=== PATIENT | female | born 1975 | race Caucasian/White ===

== ENCOUNTER 2024-04-25 18:55 | Inpatient (IN) | payer OTHER, SELFPAY ==
[2024-04-25] VITALS (10 sets, daily range): BP systolic 117–153; BP diastolic 75–90; PULSE 62–78; RESP 13–19; TEMP 36.6; O2SAT 90–100
--- NOTE | ~2024-04-25 | CT_ITS ---
EXAMINATION: CT cervical spine wo con DATE: 04/25/2024 19:51 INDICATION: hematoma to scalp, c/f trauma TECHNIQUE: Computed tomography (CT) of the cervical spine was performed without intravenous contrast. Automated exposure control and iterative reconstruction technique were employed. The dose-length pro duct was 119.54 mGy-cm. COMPARISON: None. FINDINGS: Vertebral Body Alignment: Intact. Craniocervical and atlantoaxial alignment: Mild degenerative change. Alignment intact. Osseous structures/fracture: No evidence of a lytic or blastic process in the visualized spine. No e vidence of acute fracture. Cervical soft tissues: The paraspinal soft tissues planes are maintained. Degenerative changes: Degenerative changes, without severe neural foraminal or central canal narrowin g. IMPRESSION: No acute fracture or traumatic malalignment in the cervical spine. Reviewed, dictated and finalized at location K. NITIES TEACHER
--- NOTE | ~2024-04-25 | XR_ITS ---
EXAMINATION: XR chest PICC line DATE: 04/30/2024 08:23 INDICATION: PICC line placement TECHNIQUE: frontal view of the chest was obtained. COMPARISON: Chest radiograph dated 04/30/2024 FINDINGS: Endotracheal tube tip 2 mm above the jose and would recommend withdrawal by 2 cm. Nasogastric tube with tip in proximal side port in the body of the stomach. Right upper extremity peripherally inserte d central venous catheter (PICC) tip at the mid superior vena cava. Airspace opacities in the left lower lung zone which could represent atelectasis or pneumonia. No pul monary edema, pleural effusion or pneumothorax. Heart size is normal. IMPRESSION: 1. Endotracheal tube tip 2 cm millimeter above the jose. Recommend withdrawal by 2 cm. 2. Opacities in the left lower lung zone which could represent atelectasis or pneumonia. Reviewed, dictated and finalized at location A. ENT RELATIONS LIAISON IMPRESSION: 1. Endotracheal tube tip 2 cm millimeter above the jose. Recommend withdrawal by 2 cm. 2. Opacities in the left lower lung zone which could represent atelectasis or p neumonia.
--- NOTE | ~2024-04-25 | CT_ITS ---
EXAMINATION: CTA chest PE abdomen pel DATE: 04/25/2024 21:30 INDICATION: hypoxia worsening b/l pleural effusions unclear TECHNIQUE: Computed tomography angiography (CTA) of the chest was performed with 100 mL Omnipaque-350 intravenous contrast timed to evaluate the pulmonary arteries, followed by portal venous phase imagi ng of the abdomen and pelvis. Coronal maximum intensity projection 3D-reconstructions were created by the technologist. The dose-length product (DLP) was 724.03 mGy-cm. Automated exposure control and it erative reconstruction technique were employed. COMPARISON: X-ray chest and some abdomen, same date. FINDINGS: CHEST: Lung parenchyma and airways: Mild septal thickening. Bilateral dependent atelectasis. Right middle lo be scar. Pleura: Unremarkable. Thoracic inlet, axillae and chest wall: No thyroid or soft tissue mass. Thoracic aorta: No significant dilation. No dissection. Mediastinum: Normal. Dilated central pulmonary arteries as can be seen with pulmonary arterial hypert ension. Heart and pericardium: Normal. Coronary artery calcifications: Mild. Thoracic bones: No acute osseous finding. Pulmonary arteries: Study quality: Motion and beam hardening artifact limit evaluation of segmental a nd subsegmental pulmonary arteries. No central pulmonary emboli detected. ABDOMEN/PELVIS: Liver: Small nodular liver. Biliary/Gallbladder: Cholelithiasis. No bile duct dilation. Pancreas: Multiple coarse pancreatic calcifications. Marked pancreatic duct dilation. Spleen: Normal. Adrenals:No mass. Kidneys: No suspicious mass, obstructing stone, or hydronephrosis. GI tract: No small or large bowel dilation. Normal appendix. Mesentery/Peritoneum: No ascites, mass, or free air. Recanalization of the umbilical vein. Retroperitoneum: No mass. Atherosclerotic abdominal aortic and/or arterial calcifications. Pelvis: Normal uterus and bilateral ovaries. The urinary bladder is decompressed by Mirza catheter. Soft Tissues: Soft tissues and body wall unremarkable. Abdominopelvic bones: No acute osseous finding. IMPRESSION: Limited evaluation of the segmental and subsegmental pulmonary arteries. No central pulmonary embolus detected. Mild interstitial pulmonary edema. No pleural effusion is detected. Cirrhosis with portal hypertension. Chronic pancreatitis with marked pancreatic duct dilation. Correlate with pancreatic labs. Reviewed, dictated and finalized at location K. O INTERFERENCE EXPERT IMPRESSION: Limited evaluation of the segmental and subsegmental pulmonary arteries. No shirin tral pulmonary embolus detected. Mild interstitial pulmonary edema. No pleural effusion is detected. Cirrhosis with portal hypertension. Chronic pancreatitis with marked pancreatic duct dilation. Correlate with pancr eatic labs.
--- NOTE | ~2024-04-25 | XR_ITS ---
EXAMINATION: XR chest 1V portable DATE: 04/30/2024 06:00 INDICATION: Intubation TECHNIQUE: frontal view of the chest was obtained. COMPARISON: Chest radiograph dated 04/29/2024 FINDINGS: Endotracheal tube tip appears to extend a couple millimeter beyond the jose at the entrance to the right mainstem bronchus. Nasogastric tube tip in proximal side port in the body the stomach. Airspace opacities in bilateral lower lung zones, left greater than right which could represent atele ctasis or pneumonia. No pleural effusion or pneumothorax. Heart size is normal. IMPRESSION: 1. Endotracheal tube tip just within the right mainstem bronchus. This has been withdrawn on the thre e-hour subsequent radiograph. The tip of the lower lung zones, left greater than right which could re present atelectasis or pneumonia. Reviewed, dictated and finalized at location A. AVER TENDER IMPRESSION: 1. Endotracheal tube tip just within the right mainstem bronchus. This has been withdrawn on the three-hour subsequent radiograph. The tip of the lower lung z ones, left greater than right which could represent atelectasis or pneumonia.
--- NOTE | ~2024-04-25 | XR_ITS ---
EXAMINATION: XR abdomen gastric tube insert DATE: 04/28/2024 20:12 INDICATION: Nasogastric tube placement. TECHNIQUE: A supine view of the abdomen was obtained. COMPARISON: CT chest, abdomen, and pelvis 04/25/2024 FINDINGS: The lower abdomen is excluded. There are no dilated loops of bowel. The nasogastric tube ti p is in the distal stomach. There are calcifications in the pancreas, consistent with chronic pancrea titis. There are airspace opacities in right lower lung zone, likely atelectasis. There is an 11 mm n odule in left lung upper lobe on the recent chest CT. IMPRESSION: 1. 11 mm nodule in left lung upper lobe suspicious for primary bronchogenic carcinoma. Noncontrast lo w-dose chest CT is recommended in 3 months. 2. Nasogastric tube tip in the distal stomach. Reviewed, dictated and finalized at location A. OLOGY MANAGER IMPRESSION: 1. 11 mm nodule in left lung upper lobe suspicious for primary bronchogenic car cinoma. Noncontrast low-dose chest CT is recommended in 3 months. 2. Nasogastric tube tip in the distal stomach.
--- NOTE | ~2024-04-25 | XR_ITS ---
EXAMINATION: XR chest 1V portable DATE: 04/28/2024 10:20 INDICATION: Worsening shortness of breath TECHNIQUE: frontal view of the chest was obtained. COMPARISON: Chest radiograph and CT dated 04/25/2024 FINDINGS: Lung volumes are decreased. Mild reticular opacities at the bilateral lower lung zones which could re present mild pulmonary edema, atelectasis, pneumonia or some combination thereof. Heart size is rubio l. IMPRESSION: 1. Decreased lung volumes with mild bibasilar opacities most likely atelectasis with differential inc luding the mild pulmonary edema or pneumonia. Reviewed, dictated and finalized at location A. T DRIVER IMPRESSION: 1. Decreased lung volumes with mild bibasilar opacities most likely atelectasis with differential including the mild pulmonary edema or pneumonia.
--- NOTE | ~2024-04-25 | XR_ITS ---
EXAMINATION: XR chest ET placement DATE: 05/02/2024 18:30 INDICATION: Intubation. TECHNIQUE: A single frontal view of the chest was obtained. COMPARISON: Chest view at 5:30 AM, chest CT 04/25/2024 FINDINGS: There is a small right pleural effusion. There are airspace opacities in the perihilar epi ons and lower lung zones. There is a diffuse interstitial pattern in the lungs. There is an 11 mm nod ule in left upper lobe. The heart size is normal. The endotracheal tube tip is 1.3 cm above the jose l a. The nasogastric tube tip is beyond the inferior margin of the radiograph, but at least to the stom ach. A right upper extremity peripherally inserted central venous catheter (PICC) is seen with tip at the superior cavoatrial junction. IMPRESSION: 1. Diffuse lung disease, consistent with pulmonary edema and lower lung atelectasis versus pneumonia. 2. 11 mm left upper lobe pulmonary nodule suspicious for primary bronchogenic carcinoma. Noncontrast chest CT is recommended in 3 months. 3. Small pleural effusions. Reviewed, dictated and finalized at location A. T PLACER IMPRESSION: 1. Diffuse lung disease, consistent with pulmonary edema and lower lung atelect asis versus pneumonia. 2. 11 mm left upper lobe pulmonary nodule suspicious for primary bronchogenic c arcinoma. Noncontrast chest CT is recommended in 3 months. 3. Small pleural effusions.
--- NOTE | ~2024-04-25 | XR_ITS ---
Portable chest x-ray Comparison: 04/30/2024 Clinical History: Respiratory failure Findings: Endotracheal tube, NG tube, and right-sided PICC line are in place. Small right pleural ef fusion present. There is moderate bibasilar pulmonary edema pattern and bibasilar atelectasis. Cardi omediastinal silhouette is stable. Bones and soft tissues are unremarkable. Impression: Support tubes, as above. Probable moderate bibasilar pulmonary edema and atelectatic change. Correlate clinically for pneumoni a. Small right pleural effusion. Reviewed, dictated and finalized at location M. MAINTENANCE TECHNICIAN Impression: Support tubes, as above. Probable moderate bibasilar pulmonary edema and atelectatic change. Correlate c linically for pneumonia. Small right pleural effusion.
--- NOTE | ~2024-04-25 | XR_ITS ---
EXAMINATION: XR abdomen gastric tube insert DATE: 04/29/2024 16:21 INDICATION: Orogastric tube placement. TECHNIQUE: A supine view of the abdomen was obtained. COMPARISON: CT abdomen and pelvis 04/25/2024 FINDINGS: The lower abdomen is excluded. There are no dilated loops of bowel. The nasogastric tube ti p is in the distal stomach. The endotracheal tube tip is 10 mm above the jose. There are calcificat ions of the pancreas, consistent with chronic pancreatitis. There are gallstones in the gallbladder. IMPRESSION: 1. Nasogastric tube tip in the distal stomach. Reviewed, dictated and finalized at location A. INE STAPLER
--- NOTE | ~2024-04-25 | CT_ITS ---
EXAMINATION: CT brain wo con DATE: 04/25/2024 19:51 INDICATION: ams, lethargic . TECHNIQUE: Computed tomography (CT) of the head was performed without intravenous contrast. The mA wa s adjusted according to patient size. Iterative reconstruction technique was employed. The dose-lengt h product was 605.33 mGy-cm. COMPARISON: None. FINDINGS: No acute intracranial hemorrhage or extra-axial fluid collection. No hydrocephalus, mass, or herniation. No acute ischemic infarct. Unremarkable dural venous sinus attenuation. No acute osseous abnormality. Posterior scalp contusion Nodular mucosal thickening in the inferior maxillary sinuses, the remaining aerated spaces are clear. Mild atrophy and chronic white matter change. Atherosclerotic intracranial calcification. Bilateral l ens replacements. IMPRESSION: No acute intracranial process. Reviewed, dictated and finalized at location K. ASS OPERATOR
--- NOTE | ~2024-04-25 | US_ITS ---
EXAMINATION: US abdomen limited DATE: 04/25/2024 21:19 INDICATION: transamiinitis; AMS TECHNIQUE: Multiple grayscale and Doppler ultrasound images of limited portions of the abdomen were o btained. COMPARISON: None available. FINDINGS: Marked pancreatic duct dilation. Small nodular liver. Recanalized umbilical vein No surface nodularity. Normal hepatopetal flow in the main portal vein. Echogenic intraluminal foci. No wall th ickening or pericholecystic fluid The common bile duct measures 4 mm. Robles's sign cannot be assesse d. IMPRESSION: Cirrhosis with portal hypertension. Cholelithiasis. Pancreatic duct dilation. Reviewed, dictated and finalized at location K. ENGINEER
--- NOTE | ~2024-04-25 | CT_ITS ---
EXAMINATION: CT brain wo con DATE: 04/28/2024 10:22 INDICATION: Lethargy and altered mental status TECHNIQUE: Computed tomography (CT) of the head was performed without intravenous contrast. Sagittal and coronal reconstructions were performed. The mA was adjusted according to patient size. Iterative reconstruction technique was employed. The dose-length product was 605.33 mGy-cm. COMPARISON: head CT dated 04/25/2024 FINDINGS: No acute intracranial hemorrhage, acute infarction or abnormal extra axial fluid collection. There is mild scattered white matter hypoattenuation consistent with chronic small vessel ischemic disease. S ymmetric prominence of the sulci consistent with mild diffuse cerebral volume loss. Ventricles are no rmal and symmetric. No mass/mass effect. Mucosal thickening the paranasal sinuses. The orbits, parana rosie sinuses and mastoid air cells are normal. Extensive dental disease with periportal erosions along the mandible. Unchanged relatively high attenuation posterior midline scalp nodule, possibly trichil emmal cyst. IMPRESSION: 1. Stable appearance of mild age-related changes including mild diffuse volume loss and mild scattere d white matter hypoattenuation consistent with chronic small vessel ischemic disease. No acute intrac ranial process. Reviewed, dictated and finalized at location A. ITORY ACCOUNT REPRESENTATIVE IMPRESSION: 1. Stable appearance of mild age-related changes including mild diffuse volume loss and mild scattered white matter hypoattenuation consistent with chronic sm all vessel ischemic disease. No acute intracranial process.
--- NOTE | ~2024-04-25 | XR_ITS ---
EXAMINATION: XR chest 1V Exam Date/Time: 04/25/2024 19:45 THREAD SEPARATOR HISTORY: ams, hypoxic Comparison: None. RESULT: Lines, tubes, and devices: None. Lungs and pleura: Mild diffuse reticular opacities. Streaky bibasilar airspace disease. Minimal bila teral costophrenic angle blunting. Cardiomediastinal silhouette: Stable. Other: No acute osseous or upper abdominal finding. IMPRESSION: Mild interstitial edema. Streaky subsegmental bibasilar atelectasis/consolidation. Possible trace juan ateral effusions. Reviewed, dictated and finalized at location K. AD SEPARATOR IMPRESSION: Mild interstitial edema. Streaky subsegmental bibasilar atelectasis/consolidati on. Possible trace bilateral effusions.
--- NOTE | ~2024-04-25 | XR_ITS ---
XR chest ET placement 04/29/2024 16:21 Indication: Respiratory failure. Procedure: AP portable chest Comparison: 04/28/2024 Findings: Endotracheal tube tip 1.5 cm above the jose. NG tube in the stomach. Bibasilar airspace d isease, compatible with pneumonia. Small effusions. No pneumothorax. Impression: 1: Bibasilar airspace disease, compatible with pneumonia. Reviewed, dictated and finalized at location B. IBILITY SUPERVISOR Impression: 1: Bibasilar airspace disease, compatible with pneumonia.
--- NOTE | ~2024-04-25 | XR_ITS ---
Portable chest x-ray Comparison: 05/01/2024 Clinical History: Respiratory failure Findings: Endotracheal tube, NG tube, and right-sided central venous line remain in place. Small rig ht pleural effusion present with patchy bibasilar airspace disease. Cardiomediastinal silhouette is stable. Bones and soft tissues are unremarkable. Impression: Patchy bibasilar pulmonary edema/atelectasis versus pneumonia. Correlate clinically. Small right pleural effusion. Support tubes, as above. Reviewed, dictated and finalized at location M. STATION SUPERVISOR Impression: Patchy bibasilar pulmonary edema/atelectasis versus pneumonia. Correlate clinic ally. Small right pleural effusion. Support tubes, as above.
--- NOTE | 2024-04-25 19:00 | ED_ITS ---
HPI - SOB/Dyspnea General Chief Complaint: Shortness of Breath/Dyspnea Stated Complaint: LOW O2 SATS, LETHARGIC Time Seen by Provider: 04/25/24 18:59 Source: EMS and RN notes reviewed Mode of arrival: EMS Limitations: altered mental status History of Present Illness HPI Narrative: Patient presents from [facility] with report of altered mental status/lethargy. She was noted to have hypoxia with an oxygen saturation of 88% by EMS were applied nasal cannula. Point of care blood glucose was 104 mg/dL per EMS. Limited history as [facility] was unable to access our patient records because their system was down. It was reported that she was recently hospitalized at [facility] for psychiatric condition. Patient was noted to have a hematoma at the back of her scalp today but unclear circumstances. She does have a wrist band on her wrist that lists a hospitalization 04/11/2024 in the ICU. Related Data Allergies Allergy/AdvReac Type Severity Reaction Status Date / Time No Known Allergies Allergy Verified 04/25/24 19:50 FOR[facility]LY [facility], [facility] Past Medical History Medical History Anxiety Chronic depression Chronic liver disease Chronic pancreatitis Diabetes mellitus Esophageal varices Panic attacks Suicidal ideation Surgical History Surgical History History of bilateral ligation of fallopian tubes History of gastrointestinal surgery For esophageal varices Family History Family History (Updated 04/26/24 @ 02:21 by Alicia Muniz DO) Other Unknown family medical history Social History Social History Social History: Homeless but per documentation going through a messy divorce Smoking status: Unknown if ever smoked Alcohol use details: Liquor Substance use: unknown Education: Trade/Vocational Certificate Spiritual care concerns: No Exam 2 Narrative: GENERAL: well-nourished, and in no acute distress. HEAD: Scalp hematoma. EYES: Non injected. PERRL, 3mm bilaterally, not fixed, moves eyes from side to side but no eye contact. Mildly icteric though faint and R > L. ENT: Nares clear, no rhinorrhea or epistaxis. Poor dentition. Patient has a thick chalky orange substance in her mouth. NECK: Supple. CHEST: No respiratory distress. Normal breasts. No ecchymosis. Lungs clear. Airway otherwise patent and she is protecting at this time. HEART: Regular rate and rhythm. ABDOMEN: Soft, nondistended. Nontender to palpation without rigidity. Not peritoneal. EXTREMITIES: No lower extremity edema. SKIN: Warm, dry. Patient has various areas of ecchymosis particularly on arms as well as on low abdomen. Spider angiomas on upper chest. NEURO: No focal deficits. Alert but not oriented. Responsive to pain. No ankle clonus bilaterally. Course Vital Signs Vital signs: Vital Signs Temperature 97.9 F 04/25/24 19:04 Pulse Rate 78 04/25/24 19:04 Respiratory Rate 19 04/25/24 19:04 Blood Pressure 139/86 04/25/24 19:04 Pulse Oximetry 90 04/25/24 19:04 Oxygen Delivery Room Air 04/25/24 19:04 Temperature 97.7 F 04/27/24 05:41 Pulse Rate 89 04/27/24 14:01 Respiratory Rate 20 04/27/24 14:01 Blood Pressure 126/80 04/27/24 05:41 Pulse Oximetry 92 04/27/24 09:05 Oxygen Delivery Nasal Cannula 04/27/24 09:05 Oxygen Flow Rate 1 04/27/24 09:05 MDM - SOB/Dyspnea MDM Narrative Medical decision making narrative: Patient presents with reported altered mental status/lethargy and was noted to be hypoxic saturating 80% for EMS. She was [facility] from a local [facility] and has a hematoma to the back of her scalp, unclear circumstances. Was reported that she was recently hospitalized at [facility] for possible psychiatric issues. In the emergency department she is afebrile with vital signs that show hypoxia at 90% on room air with a good waveform. Supplemental oxygen is reapplied. C- collar applied. Patient has never presented to our hospital before and did not receive records from [facility] thus very limited knowledge of past medical history. . Patient has a wrist band on that notes that she was recently hospitalized in an ICU. The attending a.m. associated with this hospitalization was Dr. Cullen Ken, who, per a search, appears to be a hospitalist at [facility]. Point of care glucose here 126 mg/dL. Broad altered mental status workup initiated and will also simultaneously attempt to obtain records from both [facility] as well as [facility]. C-spine imaging negative for acute process, will remove collar. Nurses able to contact staff from home with who report that she had recently been hospitalized at [facility] for suicidal ideation and issues with alcohol. She arrived at [place] on Thursday and at baseline was alert oriented x2. She was noted to be hypoxic today for which nasal cannula was applied but around 6:00 p.m. when her mentation seemed to decline even further she was sent to the emergency department. Nurse notes that the patient had been a bit more awake and communicative even prior to administering Narcan; no acute change with naloxone administration. She has transaminitis and hyperbilirubinemia. She is becoming more hypoxic and although her D-dimer is not elevated to a degree to suggest pulmonary embolism, will proceed with CT imaging of the chest as well as the abdomen pelvis. Will also add a lipase on in consideration of pancreatitis that might cause a pleural effusion seen on imaging as well as indirect direct bilirubin. Also considering biliary etiology including cholangitis. Hypomagnesemia will be repleted. Ceftriaxone to be given for urinary tract infection. Ddx indirect hyperbilirubinemia Over production of bilirubin (hemolytic anemia), reduced uptake (cirrhosis or congestive hepatopathy), impaired conjugation, biliary obstruction, hereditary disease (Gilbert syndrome, Serenity-Mika syndrome, Crigler-Alexis syndrome), medication side effect (allopurinol, anabolic steroids, antibiotics, antimalarials, etc.) US with cirrhosis with portal hypertension. CT scan does not demonstrate the pleural effusions that were considered on x-ray but rather notes that it is interstitial pulmonary edema; BNP does is not concerning for acute heart failure. Lipase is not elevated packed less than normal but evidence of chronic pancreatitis on imaging. She is able to be downtitrated back to nasal cannula and maintaining her saturations. Mentation improving slightly. Continues to protect her airway. She is reassessed at approximately 12:30 a.m. Her mentation has greatly improved and she can follow commands though remains weak. Received info about recent [facility] hospitalization. Discussed with maintenance mechanic telephone hospitalist Dr Muniz who requests discussing with [facility] housekeeping aid to see if they have bed availability. electronics supervisor reportedly discusses with hospitalist who reports not being able to accept because no in house neurologist. Ammonia 62 by verbal report by engineering laboratory technician since it reads as completed in the system but not able to see result. Lactulose one time order placed. Patient will require IMU. Differential Diagnosis Differential diagnosis: Likely congestive heart failure, community acquired pneumonia, pulmonary embolism and other (Trauma occluding intracranial hemorrhage, toxic metabolic, thyroid dysfunction, infection (acute viral syndrome, flu, UTI), ACS) Medical Records Attestation: I reviewed the patient's medical records. Medical records narrative: Medical records obtained from [facility] which showed an admission from 04/07/2024 until 04/11/2024. She presented with complaints of suicidal ideations, depression, and alcoholism. It is noted that she was transferred to the ICU but without documentation as to why/what the circumstances are. Labs and imaging reports are provided from the hospitalization. Additional documentation later arrives. She was initially admitted to the psychiatric unit and on 04/11/2024 rapid response was called given a decline in the patient's mental status. Ammonia level was elevated and patient was transferred to the ICU for further care and management of her presumed acute hepatic encephalopathy. She had a history of chronic alcoholism and had a period of sobriety 5 years but had relapsed in the past 4-5 months. Patient was placed on CIWA protocol p.r.n. and for ammonia was noted to be 109. Lactulose 20 g was started every 1 hour until laxative effect occurs, then advised decrease dose to 30mL (20g) orally 3-4 times daily. Patient was receiving Lovenox for DVT PPTX. Mentation improved 04/12 and patient downgraded to telemetry status. Patient improved enough to become alert oriented x3 for 2 days in a row and was deemed stable to discharge to [facility] on 04/22/[facility]24. Lab Data Attestation: I reviewed the patient's lab results. Lab results narrative: Hemoglobin and hematocrit elevated, possibly due to hemoconcentration. Very mild thrombocytopenia. Benzodiazepines on urinalysis 04/27/24 06:09 04/27/24 06:09 Labs: Lab Results 04/25/24 04/25/24 04/25/24 Range/Units 01:15 19:07 19:16 WBC (4.5-10.0) K/mm3 RBC (4.2-5.4) M/mm3 Hgb (12.0-15.0) g/dL Hct (37.0-47.0) % MCV (80-100) fl MCH (26-34) pg MCHC (32-36) g/dl RDW (11.5-14.5) % Plt Count (150-375) k/mm3 MPV (7.4-10.4) fl Immature Gran % (Auto) (0-0.5) % Neut % (Auto) (45.5-73.1) % Lymph % (Auto) (18.3-44.2) % [place] % (Auto) (2.6-8.5) % Eos % (Auto) (0-4.4) % Baso % (Auto) (0.2-1.2) % Lymph # (Auto) (0.9-3.2) K/mm3 [place] # (Auto) (0.1-0.6) K/mm3 Eos # (Auto) (0-0.3) K/mm3 Baso # (Auto) (0.0-0.1) K/mm3 Abs Immat Gran (auto) (0.00-0.031) K/mm3 Absolute Neuts (auto) (1.3-6.7) K/mm3 Absolute Nucleated RBC (0.0-0.012) K/mm3 Nucleated RBC % (0.0-0.2) % PT (11.1-14.7) Seconds INR APTT (22.3-36.8) Seconds D-Dimer (<0.48) ug/mL Sodium (137-145) mmol/L Potassium (3.4-5.0) mmol/L Chloride (98-107) mmol/L Carbon Dioxide (22-30) mmol/L Anion Gap (4-12) mmol/L BUN (7-17) mg/dL Creatinine (0.7-1.0) mg/dL Estim Creat Clear Calc ml/min Estimated GFR (59 - ) Glucose (65-110) mg/dL POC Capillary Glucose 129 H (65-105) mg/dl Lactic Acid (0.7-2.0) mmol/L Calcium (8.4-10.2) mg/dL Magnesium (1.6-2.3) mg/dL Total Bilirubin (0.2-1.3) mg/dL Direct Bilirubin (0-0.3) mg/dL Indirect Bilirubin (0-1.1) mg/dL AST (14-36) U/L ALT (6-35) U/L Alkaline Phosphatase (38-126) U/L Ammonia 62 H (9-30) umol/L Total Creatine Kinase (30-135) U/L Troponin I (0.000-0.034) ng/mL NT-Pro-B Natriuret Pep (19.9-100) pg/mL Total Protein (6.3-8.2) g/dL Albumin (3.5-5.1) g/dL Lipase (23-300) U/L TSH (0.465-4.680) uIU/mL Urine Color (Yellow) Urine Appearance (Clear) Urine pH (5.0-9.0) Ur Specific [place] (1.001-1.035) Urine Protein (Negative) mg/dL Urine Glucose (UA) (Negative) mg/dL Urine Ketones (Negative) mg/dL Ur Blood (Man) (Negative) Urine Nitrate (Negative) Urine Bilirubin (Negative) Urine Urobilinogen (<2.0) mg/dL Leukocyte Esterase Rfl (Negative) KELSEA/UL Urine RBC (0-2) /hpf Urine WBC (0-3) /hpf Ur Squamous Epith Cells (Few) /hpf Urine Bacteria /hpf Urine Casts POC Urine HCG, Qual Negative (Negative) Salicylates (2-20) mg/dL Urine Opiates Screen (Negative) Urine Methadone Screen (Negative) Acetaminophen (10-30) ug/mL Ur Barbiturates Screen (Negative) Ur Phencyclidine Scrn (Negative) Ur Amphetamine Screen (Negative) U Benzodiazepines Scrn (Negative) Urine Cocaine Screen (Negative) U Cannabinoids Screen (Negative) Ethyl Alcohol (<10) mg/dL Influenza A (RT-PCR) (Negative) Influenza B (RT-PCR) (Negative) RSV (RT-PCR) (Negative) SARS-CoV-2 RNA (RT-PCR) (Negative) 04/25/24 04/25/24 04/25/24 Range/Units 19:27 19:27 20:11 WBC 6.4 (4.5-10.0) K/mm3 RBC 4.86 (4.2-5.4) M/mm3 Hgb 17.1 H (12.0-15.0) g/dL Hct 48.4 H (37.0-47.0) % MCV 99.6 (80-100) fl MCH 35.2 H (26-34) pg MCHC 35.3 (32-36) g/dl RDW 13.6 (11.5-14.5) % Plt Count 145 L (150-375) k/mm3 MPV 10.5 H (7.4-10.4) fl Immature Gran % (Auto) 0.5 (0-0.5) % Neut % (Auto) 58.6 (45.5-73.1) % Lymph % (Auto) 22.9 (18.3-44.2) % [place] % (Auto) 15.8 H (2.6-8.5) % Eos % (Auto) 1.1 (0-4.4) % Baso % (Auto) 1.1 (0.2-1.2) % Lymph # (Auto) 1.47 (0.9-3.2) K/mm3 [place] # (Auto) 1.0 H (0.1-0.6) K/mm3 Eos # (Auto) 0.1 (0-0.3) K/mm3 Baso # (Auto) 0.1 (0.0-0.1) K/mm3 Abs Immat Gran (auto) 0.03 (0.00-0.031) K/mm3 Absolute Neuts (auto) 3.8 (1.3-6.7) K/mm3 Absolute Nucleated RBC 0.000 (0.0-0.012) K/mm3 Nucleated RBC % 0.0 (0.0-0.2) % PT 18.6 H (11.1-14.7) Seconds INR 1.5 APTT 34.6 (22.3-36.8) Seconds D-Dimer 0.50 H (<0.48) ug/mL Sodium 141 (137-145) mmol/L Potassium 3.4 (3.4-5.0) mmol/L Chloride 110 H (98-107) mmol/L Carbon Dioxide 22 (22-30) mmol/L Anion Gap 9 (4-12) mmol/L BUN 11 (7-17) mg/dL Creatinine 0.60 L (0.7-1.0) mg/dL Estim Creat Clear Calc 85 ml/min Estimated GFR > 60 (59 - ) Glucose 119 H (65-110) mg/dL POC Capillary Glucose (65-105) mg/dl Lactic Acid 2.0 (0.7-2.0) mmol/L Calcium 8.9 (8.4-10.2) mg/dL Magnesium 1.4 L (1.6-2.3) mg/dL Total Bilirubin 3.2 H (0.2-1.3) mg/dL Direct Bilirubin 0.0 (0-0.3) mg/dL Indirect Bilirubin 1.9 H (0-1.1) mg/dL AST 65 H (14-36) U/L ALT 41 H (6-35) U/L Alkaline Phosphatase 142 H (38-126) U/L Ammonia (9-30) umol/L Total Creatine Kinase 203 H (30-135) U/L Troponin I < 0.012 (0.000-0.034) ng/mL NT-Pro-B Natriuret Pep < 20 Cancelled (19.9-100) pg/mL Total Protein 8.0 (6.3-8.2) g/dL Albumin 3.6 (3.5-5.1) g/dL Lipase < 10 L (23-300) U/L TSH 1.870 (0.465-4.680) uIU/mL Urine Color Dark yellow (Yellow) Urine Appearance Cloudy H (Clear) Urine pH 6.0 (5.0-9.0) Ur Specific [place] 1.029 (1.001-1.035) Urine Protein 1+ H (Negative) mg/dL Urine Glucose (UA) Negative (Negative) mg/dL Urine Ketones Trace H (Negative) mg/dL Ur Blood (Man) Negative (Negative) Urine Nitrate Positive H (Negative) Urine Bilirubin 2+ H (Negative) Urine Urobilinogen 4.0 H (<2.0) mg/dL Leukocyte Esterase Rfl 2+ H (Negative) KELSEA/UL Urine RBC 3-5 H (0-2) /hpf Urine WBC 51-100 H (0-3) /hpf Ur Squamous Epith Cells Occasional (Few) /hpf Urine Bacteria 4+ /hpf Urine Casts 3-5 POC Urine HCG, Qual (Negative) Salicylates < 1.0 L (2-20) mg/dL Urine Opiates Screen Negative (Negative) Urine Methadone Screen Negative (Negative) Acetaminophen < 10 L (10-30) ug/mL Ur Barbiturates Screen Negative (Negative) Ur Phencyclidine Scrn Negative (Negative) Ur Amphetamine Screen Negative (Negative) U Benzodiazepines Scrn Positive A (Negative) Urine Cocaine Screen Negative (Negative) U Cannabinoids Screen Negative (Negative) Ethyl Alcohol < 10 (<10) mg/dL Influenza A (RT-PCR) Negative (Negative) Influenza B (RT-PCR) Negative (Negative) RSV (RT-PCR) Negative (Negative) SARS-CoV-2 RNA (RT-PCR) Negative (Negative) ABG Data ABG results: 04/25/24 19:19 Puncture Site Left radial ABG pH 7.490 H ABG pCO2 28.4 L ABG pO2 60.0 L ABG PO2/FiO2 Ratio 2.14 ABG HCO3 21.2 L ABG O2 Saturation 93.2 L ABG O2 Content 22.1 H ABG Base Excess -0.5 A-a Gradient 106.1 Oxyhemoglobin 90.0 Total Hemoglobin 17.5 O2 Delivery Device Nasal cannula O2 Liters/Min 2.0 FiO2 28 Attestation: I personally reviewed and interpreted this ABG as follows: Interpretation: Respiratory alkalosis, metabolic acidosis for compensation Imaging Data Radiologist's impression: Impressions Head CT 04/25/24 19:52 IMPRESSION: No acute intracranial process. Cervical Spine CT 04/25/24 19:55 IMPRESSION: No acute fracture or traumatic malalignment in the cervical spine. Chest X-Ray 04/25/24 19:57 IMPRESSION: Mild interstitial edema. Streaky subsegmental bibasilar atelectasis/consolidation. Possible trace bilateral effusions. Abdomen Ultrasound 04/25/24 21:27 IMPRESSION: Cirrhosis with portal hypertension. Cholelithiasis. Pancreatic duct dilation. Chest/Abdomen/Pelvis CTA 04/25/24 21:32 IMPRESSION: Limited evaluation of the segmental and subsegmental pulmonary arteries. No central pulmonary embolus detected. Mild interstitial pulmonary edema. No pleural effusion is detected. Cirrhosis with portal hypertension. Chronic pancreatitis with marked pancreatic duct dilation. Correlate with pancreatic labs. ECG Data EKG #1: Attestation: I personally reviewed and interpreted this ECG as follows: ECG completion date: 04/25/24 ECG completion time: 19:05 Prior ECG tracings: not available for review (No prior for comparison) Interpretation: Normal sinus rhythm at a rate of 78 beats per minute. OR interval 163. QRS 98. QT/QTC 413/446. Good R-wave progression across the precordial leads. T-wave inversion in 3 and AVF as well as slightly in lead 2. Also T-wave inversion in V3. Discharge Plan Discharge Clinical Impression: Hypoxia, Elevated hemoglobin, Thrombocytopenia, Transaminitis, Hyperbilirubinemia, Hypomagnesemia, Cirrhosis, Portal hypertension, Cholelithiasis, Pancreatic duct dilated, Pulmonary edema, Hepatic encephalopathy UTI (urinary tract infection) Qualifiers: Urinary tract infection type: acute cystitis Hematuria presence: without hematuria Qualified Code(s): N30.00 - Acute cystitis without hematuria Patient Disposition: Still a Patient Condition: Stable Time of Disposition: 01:32
--- NOTE | 2024-04-25 19:07 | ECG_ITS ---
Test Date: 2024-04-25 19:05:45 Measurements Intervals [place] Rate: 78 P: 18 DE: 163 QRS: -3 QRSD: 98 T: -7 QT: 413 QTc: 470 Interpretive Statements SINUS RHYTHM LOW QRS VOLTAGE IN PRECORDIAL LEADS [QRS DEFLECTION < 1.0 mV IN CHEST LEADS] INFERIOR MYOCARDIAL INFARCTION , OF INDETERMINATE AGE [40+ ms Q WAVE AND/OR ST/T ABNORMALITY IN II/aVF] No previous ECG available for comparison Electronically Signed On 04-26-2024 14:51:24 RAYON CONER by Marc Fontanez M.D.
[2024-04-25 19:20] LABS: Glucose Point of Care 129 mg/dl (65-105)
[2024-04-25 19:25] LABS: Alveolar/Arterial O2 Gradient 106.1 mmHg; Base Excess ABG -0.5 mEq/l (+/-2.0); Fractional Inspired Oxygen 28 %; HCO3 ABG 21.2 mEq/l (22.0-26.0); Oxygen Content ABG 22.1 %vol (16.0-22.0); Oxygen Saturation ABG 93.2 % (95.0-100.0); PCO2 ABG 28.4 mmHg (35.0-45.0); PO2 FiO2 Ratio Arterial Blood 2.14 %; Total Hemoglobin 17.5 g/dL (12.0-18.0)
[2024-04-25 19:26] LABS: Device NASAL CANNULA; Modified Allen's Test Pass; Site Drawn LEFT RADIAL
[2024-04-25 19:39] LABS: Basophils Absolute Auto 0.1 K/mm3 (0.0-0.1); Basophils Percent Auto 1.1 % (0.2-1.2); Eosinophils Absolute Auto 0.1 K/mm3 (0-0.3); Eosinophils Percent Auto 1.1 % (0-4.4); Hematocrit 48.4 % (37.0-47.0); Hemoglobin 17.1 g/dL (12.0-15.0); Immature Granulocyte Absolute 0.03 K/mm3 (0.00-0.031); Immature Granulocyte Percent A 0.5 % (0-0.5); Lymphocytes Absolute Auto 1.47 K/mm3 (0.9-3.2); Lymphocytes Percent Auto 22.9 % (18.3-44.2); Mean Corpuscular HGB Conc 35.3 g/dl (32-36); Mean Corpuscular Hemoglobin 35.2 pg (26-34); Mean Corpuscular Volume 99.6 fl (80-100); Mean Platelet Volume 10.5 fl (7.4-10.4); Monocytes Percent Auto 15.8 % (2.6-8.5); Neutrophils Absolute Auto 3.8 K/mm3 (1.3-6.7); Neutrophils Percent Auto 58.6 % (45.5-73.1); Platelet Count Result 145 k/mm3 (150-375); Red Blood Count 4.86 M/mm3 (4.2-5.4); Red Cell Distribution Width 13.6 % (11.5-14.5); White Blood Count 6.4 K/mm3 (4.5-10.0)
[2024-04-25 19:49] LABS: Acetaminophen < 10 ug/mL (10-30); Ethanol < 10 mg/dL (<10); Salicylate < 1.0 mg/dL (2-20)
[2024-04-25] MEDS: NALOXONE HCL 0.4 MG/ML VIAL IV PUSH (19:55)
[2024-04-25 20:00] LABS: INR 1.5; Prothrombin Time 18.6 Seconds (11.1-14.7)
[2024-04-25 20:01] LABS: Partial Thromboplastin Time 34.6 Seconds (22.3-36.8)
[2024-04-25 20:04] LABS: Alanine Aminotransferase 41 U/L (6-35); Albumin Level 3.6 g/dL (3.5-5.1); Alkaline Phosphatase 142 U/L (38-126); Anion Gap 9 mmol/L (4-12); Aspartate Amino Transferase 65 U/L (14-36); Bilirubin,Total 3.2 mg/dL (0.2-1.3); Blood Urea Nitrogen 11 mg/dL (7-17); Calcium 8.9 mg/dL (8.4-10.2); Carbon Dioxide 22 mmol/L (22-30); Chloride 110 mmol/L (98-107); Creatine Kinase 203 U/L (30-135); Estimated CRCL calculation 85 ml/min; Estimated Glomerular Filt Rate > 60; Glucose 119 mg/dL (65-110); Magnesium 1.4 mg/dL (1.6-2.3); Potassium 3.4 mmol/L (3.4-5.0); Sodium 141 mmol/L (137-145)
[2024-04-25 20:16] LABS: Influenza A QL RT-PCR Negative (Negative); Influenza B QL RT-PCR Negative (Negative); RSV RNA, RT-PCR Negative (Negative); SARS-CoV-2 RNA PCR Negative (Negative)
[2024-04-25 20:17] LABS: NT Pro B Type Natriuretic Pept < 20 pg/mL (19.9-100); Troponin I < 0.012 ng/mL (0.000-0.034)
[2024-04-25 20:22] LABS: Add Urine Microscopic? YES; Appearance Urine Cloudy (Clear); Bacteria Urine 4+ /hpf; Bilirubin Urine 2+ (Negative); Blood Urine Negative (Negative); Color Urine Dark Yellow (Yellow); Glucose Urine UA Negative (Negative); Ketones Urine Trace mg/dL (Negative); Leukocyte Esterase Ur 2+ LEU/UL (Negative); Nitrate Urine Positive (Negative); Protein Urine 1+ mg/dL (Negative); Specific Grav Ur 1.029 (1.001-1.035); Squamous Epithelial Cell Urine Occasional /hpf (Few); WBC Urine 51-100 /hpf (0-3)
[2024-04-25 20:32] LABS: BEDSIDEPREGUCG Negative (Negative)
[2024-04-25 20:38] LABS: Barbiturate Screen Urine Negative (Negative); Benzodiazepines Screen Urine Positive (Negative)
[2024-04-25 21:06] LABS: Amphetamine Screen Urine Negative (Negative); Cannabinoid Screen Urine Negative (Negative); Cocaine Screen Urine Negative (Negative); Methadone Screen Urine Negative (Negative); Opiate Screen Urine Negative (Negative); Phencyclidine Screen Urine Negative (Negative)
[2024-04-25 21:26] LABS: Bilirubin Indirect 1.9 mg/dL (0-1.1)
[2024-04-25 21:41] LABS: Lipase < 10 U/L (23-300)
[2024-04-25] MEDS: MAGNESIUM SULF 1 GM/D5W 100 ML 1 GM/100 ML BAG IVPB (22:09)
[2024-04-25] MEDS: SODIUM CHLORIDE 0.9% IV 1,000 ML 999 ML IV CONT (23:23)
[2024-04-26] VITALS (14 sets, daily range): BP systolic 134–144; BP diastolic 62–92; PULSE 63–99; RESP 16–24; TEMP 36.6–36.8; O2SAT 93–100; BMI 26.0
--- NOTE | 2024-04-26 01:22 | P.HP_ITS ---
H&P: HPI History of Present Illness Date/Time: 04/26/24 01:22 Chief Complaint: Low oxygen saturations, altered mental status Narrative: 49-year-old female with past medical history of alcohol cirrhosis, chronic pa ncreatitis, and psychiatric disorder who presented to the ER from [facility] due to low oxygen saturations an altered mental status. The patient had recently been hospitalized at [facility] due to depression and suicidal ideation. During her hospitalization for depression she went and alcohol were drawn required ICU stay there. She had also developed hepatic encephalopathy at that time. The patient was then discharged to the [place] [facility] recently. Records requested is pending from [place]. Patient arrived from [place] disheveled with dried orange material to her lips and minimally responsive. Patient received Rocephin after urine was suggestive of UTI. Patient was hypoxic and was placed on 4 L nasal cannula maintain O2 sat greater than 92%. At the time my evaluation patient 4 L nasal cannula satting 100%. Patient was trying to crawl out of the into the bed and had her legs hanging off of the bed bed being in AV formation when I arrived to the ER. The patient will tell me her name but is otherwise not oriented. She is mumbling incoherently and states that she needs to go to her mother. The patient cannot provide any meaningful history. Source of information is ER physician report and EMS report. [facility] did not have documentation on the patient because there computer system was down. Her blood glucose was 104 per EMS. Review of Systems Review of Systems: ROS unobtainable: Yes unobtainable due to medical condition (Encephalopathy) PMFSH Past Medical History Medical History Anxiety Chronic depression Chronic liver disease Chronic pancreatitis Diabetes mellitus Esophageal varices Panic attacks Suicidal ideation Surgical History Surgical History History of bilateral ligation of fallopian tubes History of gastrointestinal surgery For esophageal varices Family History Family History (Updated 04/26/24 @ 02:21 by Alicia Muniz DO) Other Unknown family medical history Social History Social History Social History: Homeless but per documentation going through a messy divorce Alcohol use details: Liquor Substance use: unknown Education: Trade/Vocational Certificate Meds Home Medications and Allergies Allergies Allergy/AdvReac Type Severity Reaction Status Date / Time No Known Allergies Allergy Verified 04/25/24 19:50 Vital Signs Vital Signs - 24 hr 04/25/24 19:04 04/25/24 19:30 04/25/24 20:54 Temperature 97.9 F Pulse Rate 78 Respiratory Rate 19 Blood Pressure 139/86 Pulse Oximetry 90 95 100 Oxygen Delivery Room Air Nasal Cannula Non-Rebreather Mask Oxygen Flow Rate 2 10 04/25/24 21:00 04/25/24 21:36 04/25/24 23:30 Temperature Pulse Rate 64 Respiratory Rate 17 Blood Pressure 139/78 Pulse Oximetry 100 100 98 Oxygen Delivery Nasal Cannula Nasal Cannula Oxygen Flow Rate 4 4 04/25/24 21:33 04/25/24 21:46 04/25/24 22:01 Temperature Pulse Rate 68 73 65 Respiratory Rate 16 15 15 Blood Pressure 144/87 H 153/90 H 117/75 Pulse Oximetry 100 100 100 Oxygen Delivery Oxygen Flow Rate 04/25/24 23:31 04/26/24 00:00 Temperature Pulse Rate 62 63 Respiratory Rate 13 16 Blood Pressure 119/77 134/92 H Pulse Oximetry 97 96 Oxygen Delivery Oxygen Flow Rate Exam Narrative: Weight 69 kg BMI 25.3 Const: Other: Disheveled, appears older than stated age, height weight proportionate HENMT: Other: Dry mucous membranes with poor dentition some of the teeth the patient has re maining appear to be loose, patient is dried orange in whitish material to her lips as well as adherent to her gums and teeth, head is normocephalic atraumatic Eyes: Other: Pupils are constricted but sluggishly reactive unequal, mild scleral icterus bilaterally, no conjunctival pallor Neck: Other: Submandibular lymphadenopathy, no gross thyromegaly, no JVD Resp: Other: Equal breath sounds bilaterally, occasional wheezing Cardio: Other: Regular rate, regular rhythm, 2+ bilateral radial pedal pulses GI: Other: Slightly distended, nontender, mild hepatomegaly, normoactive bowel sounds Skin: Other: Hot to touch at the patient core body but cool fingers, still ectasias across the chest with some scattered petechiae and the chest in cheeks the, mild jaundice Neuro: Other: Patient is oriented to name only she mumbled something about being at home, she stated she needed get her mom, she could not answer questions regarding date and time or recent events, are the patient is alert and moving all extremities and was able to move herself down to the foot of the bed Extrem: Other: Clubbing of the nail beds in both hands and feet, no cyanosis, no edema Psych: Other: Confused, cooperative, poor judgment and insight H&P: Results Labs Labs: Short CBC 04/25/24 Range/Units 19:27 WBC 6.4 (4.5-10.0) K/mm3 Hgb 17.1 H (12.0-15.0) g/dL Hct 48.4 H (37.0-47.0) % Plt Count 145 L (150-375) k/mm3 BMP 04/25/24 19:27 Sodium 141 Potassium 3.4 Chloride 110 H Carbon Dioxide 22 BUN 11 Creatinine 0.60 L Glucose 119 H Calcium 8.9 Cardiac Enzymes 04/25/24 Range/Units 19:27 Total Creatine Kinase 203 H (30-135) U/L Troponin I < 0.012 (0.000-0.034) ng/mL Liver Function 04/25/24 Range/Units 19:27 Total Bilirubin 3.2 H (0.2-1.3) mg/dL Direct Bilirubin 0.0 (0-0.3) mg/dL AST 65 H (14-36) U/L ALT 41 H (6-35) U/L Alkaline Phosphatase 142 H (38-126) U/L Albumin 3.6 (3.5-5.1) g/dL Urine 04/25/24 Range/Units 20:11 Urine Color Dark yellow (Yellow) Urine Appearance Cloudy H (Clear) Urine pH 6.0 (5.0-9.0) Ur Specific [place] 1.029 (1.001-1.035) Urine Protein 1+ H (Negative) mg/dL Urine Glucose (UA) Negative (Negative) mg/dL Laboratory Tests 04/25/24 19:27 04/25/24 19:27 04/25/24 04/25/24 04/25/24 01:15 19:07 19:16 WBC RBC Hgb Hct MCV MCH MCHC RDW Plt Count MPV Immature Gran % (Auto) Neut % (Auto) Lymph % (Auto) [place] % (Auto) Eos % (Auto) Baso % (Auto) Lymph # (Auto) [place] # (Auto) Eos # (Auto) Baso # (Auto) Abs Immat Gran (auto) Absolute Neuts (auto) Absolute Nucleated RBC Nucleated RBC % PT INR APTT D-Dimer Puncture Site ABG pH ABG pCO2 ABG pO2 ABG PO2/FiO2 Ratio ABG HCO3 ABG O2 Saturation ABG O2 Content ABG Base Excess A-a Gradient Oxyhemoglobin Total Hemoglobin O2 Delivery Device O2 Liters/Min FiO2 Sodium Potassium Chloride Carbon Dioxide Anion Gap BUN Creatinine Estim Creat Clear Calc Estimated GFR Glucose POC Capillary Glucose 129 H Lactic Acid Calcium Magnesium Total Bilirubin Direct Bilirubin Indirect Bilirubin AST ALT Alkaline Phosphatase Ammonia 62 H Total Creatine Kinase Troponin I NT-Pro-B Natriuret Pep Total Protein Albumin Lipase TSH Urine Color Urine Appearance Urine pH Ur Specific [place] Urine Protein Urine Glucose (UA) Urine Ketones Ur Blood (Man) Urine Nitrate Urine Bilirubin Urine Urobilinogen Leukocyte Esterase Rfl Urine RBC Urine WBC Ur Squamous Epith Cells Urine Bacteria Urine Casts POC Urine HCG, Qual Negative Salicylates Urine Opiates Screen Urine Methadone Screen Acetaminophen Ur Barbiturates Screen Ur Phencyclidine Scrn Ur Amphetamine Screen U Benzodiazepines Scrn Urine Cocaine Screen U Cannabinoids Screen Ethyl Alcohol Influenza A (RT-PCR) Influenza B (RT-PCR) RSV (RT-PCR) SARS-CoV-2 RNA (RT-PCR) 04/25/24 04/25/24 04/25/24 19:19 19:27 19:27 WBC 6.4 RBC 4.86 Hgb 17.1 H Hct 48.4 H MCV 99.6 MCH 35.2 H MCHC 35.3 RDW 13.6 Plt Count 145 L MPV 10.5 H Immature Gran % (Auto) 0.5 Neut % (Auto) 58.6 Lymph % (Auto) 22.9 [place] % (Auto) 15.8 H Eos % (Auto) 1.1 Baso % (Auto) 1.1 Lymph # (Auto) 1.47 [place] # (Auto) 1.0 H Eos # (Auto) 0.1 Baso # (Auto) 0.1 Abs Immat Gran (auto) 0.03 Absolute Neuts (auto) 3.8 Absolute Nucleated RBC 0.000 Nucleated RBC % 0.0 PT 18.6 H INR 1.5 APTT 34.6 D-Dimer 0.50 H Puncture Site Left radial ABG pH 7.490 H ABG pCO2 28.4 L ABG pO2 60.0 L ABG PO2/FiO2 Ratio 2.14 ABG HCO3 21.2 L ABG O2 Saturation 93.2 L ABG O2 Content 22.1 H ABG Base Excess -0.5 A-a Gradient 106.1 Oxyhemoglobin 90.0 Total Hemoglobin 17.5 O2 Delivery Device Nasal cannula O2 Liters/Min 2.0 FiO2 28 Sodium 141 Potassium 3.4 Chloride 110 H Carbon Dioxide 22 Anion Gap 9 BUN 11 Creatinine 0.60 L Estim Creat Clear Calc 85 Estimated GFR > 60 Glucose 119 H POC Capillary Glucose Lactic Acid 2.0 Calcium 8.9 Magnesium 1.4 L Total Bilirubin 3.2 H Direct Bilirubin 0.0 Indirect Bilirubin 1.9 H AST 65 H ALT 41 H Alkaline Phosphatase 142 H Ammonia Total Creatine Kinase 203 H Troponin I < 0.012 NT-Pro-B Natriuret Pep < 20 Cancelled Total Protein 8.0 Albumin 3.6 Lipase < 10 L TSH 1.870 Urine Color Urine Appearance Urine pH Ur Specific [place] Urine Protein Urine Glucose (UA) Urine Ketones Ur Blood (Man) Urine Nitrate Urine Bilirubin Urine Urobilinogen Leukocyte Esterase Rfl Urine RBC Urine WBC Ur Squamous Epith Cells Urine Bacteria Urine Casts POC Urine HCG, Qual Salicylates < 1.0 L Urine Opiates Screen Urine Methadone Screen Acetaminophen < 10 L Ur Barbiturates Screen Ur Phencyclidine Scrn Ur Amphetamine Screen U Benzodiazepines Scrn Urine Cocaine Screen U Cannabinoids Screen Ethyl Alcohol < 10 Influenza A (RT-PCR) Negative Influenza B (RT-PCR) Negative RSV (RT-PCR) Negative SARS-CoV-2 RNA (RT-PCR) Negative 04/25/24 20:11 WBC RBC Hgb Hct MCV MCH MCHC RDW Plt Count MPV Immature Gran % (Auto) Neut % (Auto) Lymph % (Auto) [place] % (Auto) Eos % (Auto) Baso % (Auto) Lymph # (Auto) [place] # (Auto) Eos # (Auto) Baso # (Auto) Abs Immat Gran (auto) Absolute Neuts (auto) Absolute Nucleated RBC Nucleated RBC % PT INR APTT D-Dimer Puncture Site ABG pH ABG pCO2 ABG pO2 ABG PO2/FiO2 Ratio ABG HCO3 ABG O2 Saturation ABG O2 Content ABG Base Excess A-a Gradient Oxyhemoglobin Total Hemoglobin O2 Delivery Device O2 Liters/Min FiO2 Sodium Potassium Chloride Carbon Dioxide Anion Gap BUN Creatinine Estim Creat Clear Calc Estimated GFR Glucose POC Capillary Glucose Lactic Acid Calcium Magnesium Total Bilirubin Direct Bilirubin Indirect Bilirubin AST ALT Alkaline Phosphatase Ammonia Total Creatine Kinase Troponin I NT-Pro-B Natriuret Pep Total Protein Albumin Lipase TSH Urine Color Dark yellow Urine Appearance Cloudy H Urine pH 6.0 Ur Specific [place] 1.029 Urine Protein 1+ H Urine Glucose (UA) Negative Urine Ketones Trace H Ur Blood (Man) Negative Urine Nitrate Positive H Urine Bilirubin 2+ H Urine Urobilinogen 4.0 H Leukocyte Esterase Rfl 2+ H Urine RBC 3-5 H Urine WBC 51-100 H Ur Squamous Epith Cells Occasional Urine Bacteria 4+ Urine Casts 3-5 POC Urine HCG, Qual Salicylates Urine Opiates Screen Negative Urine Methadone Screen Negative Acetaminophen Ur Barbiturates Screen Negative Ur Phencyclidine Scrn Negative Ur Amphetamine Screen Negative U Benzodiazepines Scrn Positive A Urine Cocaine Screen Negative U Cannabinoids Screen Negative Ethyl Alcohol Influenza A (RT-PCR) Influenza B (RT-PCR) RSV (RT-PCR) SARS-CoV-2 RNA (RT-PCR) Impressions Head CT 04/25/24 19:52 IMPRESSION: No acute intracranial process. Cervical Spine CT 04/25/24 19:55 IMPRESSION: No acute fracture or traumatic malalignment in the cervical spine. Chest X-Ray 04/25/24 19:57 IMPRESSION: Mild interstitial edema. Streaky subsegmental bibasilar atelectasis/consolidation. Possible trace bilateral effusions. Abdomen Ultrasound 04/25/24 21:27 IMPRESSION: Cirrhosis with portal hypertension. Cholelithiasis. Pancreatic duct dilation. Chest/Abdomen/Pelvis CTA 04/25/24 21:32 IMPRESSION: Limited evaluation of the segmental and subsegmental pulmonary arteries. No central pulmonary embolus detected. Mild interstitial pulmonary edema. No pleural effusion is detected. Cirrhosis with portal hypertension. Chronic pancreatitis with marked pancreatic duct dilation. Correlate with pancreatic labs. EKG in telemetry reviewed demonstrated normal sinus rhythm Assessment and Plan Assessment and plan (1) Hepatic encephalopathy: Code(s): K76.82 - Hepatic encephalopathy Status: Acute (2) Acute hypoxic respiratory failure: Code(s): J96.01 - Acute respiratory failure with hypoxia Status: Acute (3) Polycythemia: Code(s): D75.1 - Secondary polycythemia Status: Acute (4) Thrombocytopenia: Code(s): D69.6 - Thrombocytopenia, unspecified Status: Acute (5) Transaminitis: Code(s): R74.01 - Elevation of levels of liver transaminase levels Status: Acute (6) Hyperbilirubinemia: Code(s): E80.6 - Other disorders of bilirubin metabolism Status: Acute (7) Hypomagnesemia: Code(s): E83.42 - Hypomagnesemia Status: Acute (8) UTI (urinary tract infection): Qualifiers: Urinary tract infection type: acute cystitis Hematuria presence: without hematuria Qualified Code(s): N30.00 - Acute cystitis without hematuria Code(s): N39.0 - Urinary tract infection, site not specified Status: Acute (9) Alcoholic cirrhosis: Qualifiers: Ascites presence: unspecified Qualified Code(s): K70.30 - Alcoholic cirrhosis of liver without ascites Code(s): K70.30 - Alcoholic cirrhosis of liver without ascites Status: Acute Plan The patient has encephalopathy likely multifactorial. Patient's ammonia level is elevated at 64. Will give patient a lactulose enema. The patient also does have UA suggestive of UTI. Patient been started empiric antibiotic therapy with Rocephin. Urine cultures and blood cultures are pending. Will continue patient on maintenance IV fluids. Will repeat ammonia level CBC and CMP in a.m.. Patient does have transaminitis which could be acute or chronic. Will need to reviewed records from [place] when available. However given the patient's lipase is not elevated she does not have acute pancreatitis. I suspect changes are likely chronic can due to her history of heavy alcohol use. Patient will be placed on thiamin and will monitor urine neuro checks. The patient does have polycythemia but with given her clubbing noted on nail beds I suspect patient likely has underlying chronic lung disease. Polycythemia is likely due to volume depletion and possible chronic hypoxia. The patient was relatively new patient at the [place] [facility] and they did not know much of the patient's history. Will place patient on scheduled nebulizer treatments and continue supplemental oxygen as needed. Chest x-ray did suggest possible pulmonary edema but this seems less likely given the patient is overall intervascular volume depleted. I suspect his x-ray findings could be more consistent with pneumonia. Patient did receive fluid boluses in the ER. Patient will remain NPO until mental status improves. Will check Accu-Cheks q.6 hours while NPO. Hypoglycemia protocol has been ordered as needed. Patient had low magnesium in the ER and this has been supplemented. Quality VTE Prophylaxis VTE prophylaxis: mechanical ordered (SCDs) Hospitalist [facility] Advance Care Plan I have confirmed that the patient's Advanced Care Plan is present, code status is documented, or surrogate decision maker is listed in patient medical record.: Yes Medication Reconciliation I have utilized all available resources to obtain, update and review the patients current medications (includes all prescriptions, OTC, herbals, can nabis, and nutritional supplements).: Yes
[2024-04-26] MEDS: SODIUM CHLORIDE 0.9% IV 1,000 ML 999 ML IV CONT (01:29)
[2024-04-26 01:39] LABS: Ammonia 62 umol/L (9-30)
--- NOTE | 2024-04-26 02:34 | PC.NURSE ---
Admission completed via records obtained from [facility]; patient is reported to have been seen at [place] for suicide ideations within the last month. Patient presents as agitated and with AMS. Unable to recall medical history from [place] documentation; no external medication history available. Admission report to Benji Ramirez RN.
[2024-04-26] MEDS: LACTATED RINGERS 1,000 ML 125 ML IV CONT ×2 (03:25→23:41)
[2024-04-26] MEDS: THIAMINE 500 MG/NS 100 ML 500 MG/100 ML BAG 200 MG IVPB ×3 (03:51→17:18)
[2024-04-26] MEDS: LACTULOSE ENEMA 200 GM/1,000 ML ENEMA RECTAL (04:00)
[2024-04-26 06:32] LABS: Glucose Point of Care 111 mg/dl (65-105)
--- NOTE | 2024-04-26 06:59 | PC.NURSE ---
see downtime charting
--- NOTE | 2024-04-26 09:40 | PCRCNOTE ---
Window of time for administration has passed. See next scheduled administration.
--- NOTE | 2024-04-26 09:43 | P.PNIM_ITS ---
Progress Note: A&P Assessment and Plan (1) Hepatic encephalopathy: Code(s): K76.82 - Hepatic encephalopathy Status: Acute Assessment and Plan: Patient's ammonia level is elevated at 64. Will give patient a lactulose enema. monitor (2) Acute hypoxic respiratory failure: Code(s): J96.01 - Acute respiratory failure with hypoxia Status: Acute Assessment and Plan: monitor (3) Polycythemia: Code(s): D75.1 - Secondary polycythemia Status: Acute (4) Thrombocytopenia: Code(s): D69.6 - Thrombocytopenia, unspecified Status: Acute (5) Transaminitis: Code(s): R74.01 - Elevation of levels of liver transaminase levels Status: Acute Assessment and Plan: see alcohol cirrhosis plan (6) Hyperbilirubinemia: Code(s): E80.6 - Other disorders of bilirubin metabolism Status: Acute (7) Hypomagnesemia: Code(s): E83.42 - Hypomagnesemia Status: Acute Assessment and Plan: Patient had low magnesium in the ER replaced monitor (8) UTI (urinary tract infection): Qualifiers: Hematuria presence: without hematuria Urinary tract infection type: acute cystitis Qualified Code(s): N30.00 - Acute cystitis without hematuria Code(s): N39.0 - Urinary tract infection, site not specified Status: Acute Assessment and Plan: - encephalopathy likely multifactorial. The patient also does have UA suggestive of UTI. Patient been started empiric antibiotic therapy with Rocephin. Urine cultures and blood cultures are pending. Will continue patient on maintenance IV fluids. -bedside swallow study-if more awake- will advance diet (9) Alcoholic cirrhosis: Qualifiers: Ascites presence: unspecified Qualified Code(s): K70.30 - Alcoholic cirrhosis of liver without ascites Code(s): K70.30 - Alcoholic cirrhosis of liver without ascites Status: Acute Assessment and Plan: waiting for records from [place] when available. However given the patient's lipase is not elevated she does not have acute pancreatitis. reports last drink months ago Plan Patient will remain NPO until mental status improves. Will check Accu-Cheks q.6 hours while NPO. Hypoglycemia protocol has been ordered as needed. Time Spent With Patient Time with patient: Greater than 35 minutes Subjective Date/time seen: 04/26/24 09:43 Interval history: 49-year-old female with past medical history of alcohol cirrhosis, chronic pancreatitis, and psychiatric disorder who presented to the ER from [facility] due to low oxygen saturations an altered mental status. The patient had recently been hospitalized at [place] been due to depression and suicidal ideation. During her hospitalization for depression she went and alcohol were drawn required ICU stay there. She had also developed hepatic encephalopathy at that time. The patient was then discharged to the correction recently. Records requested is pending from [place]. Patient arrived from [place] disheveled with dried orange material to her lips and minimally responsive. Patient received Rocephin after urine was suggestive of UTI. Patient was hypoxic and was placed on 4 L nasal cannula maintain O2 sat greater than 92%. At the time my evaluation patient 4 L nasal cannula satting 100%. Patient was trying to crawl out of the into the bed and had her legs hanging off of the bed bed being in AV formation when I arrived to the ER. The patient will tell me her name but is otherwise not oriented. She is mumbling incoherently and states that she needs to go to her mother. The patient cannot provide any m eaningful history. Source of information is ER physician report and EMS report. [facility] did not have documentation on the patient because there computer system was down. Her blood glucose was 104 per EMS. 04/25 seen and examined. She is more alert today- was able to answer some questions. She knew her but not year and locations. Sitter at the bedside for safety. Review of Systems Review of Systems: ROS unobtainable: Yes unobtainable due to medical condition (Encephalopathy) Exam Narrative: Weight 69 kg BMI 25.3 Const: Other: Disheveled, appears older than stated age, height weight proportionate HENMT: Other: Dry mucous membranes with poor dentition some of the teeth the patient has remaining appear to be loose, patient is dried orange in whitish material to her lips as well as adherent to her gums and teeth, head is normocephalic atraumatic Eyes: Other: Pupils are constricted but sluggishly reactive unequal, mild scleral icterus bilaterally, no conjunctival pallor Neck: Other: Submandibular lymphadenopathy, no gross thyromegaly, no JVD Resp: Other: Equal breath sounds bilaterally, occasional wheezing Cardio: Other: Regular rate, regular rhythm, 2+ bilateral radial pedal pulses GI: Other: Slightly distended, nontender, mild hepatomegaly, normoactive bowel sounds Skin: Other: Hot to touch at the patient core body but cool fingers, still ectasias across the chest with some scattered petechiae and the chest in cheeks the, mild jaundice Neuro: Other: Patient is oriented to name only she mumbled something about being at home, she stated she needed get her mom, she could not answer questions regarding date and time or recent events, are the patient is alert and moving all extremities and was able to move herself down to the foot of the bed Extrem: Other: Clubbing of the nail beds in both hands and feet, no cyanosis, no edema Psych: Other: Confused, cooperative, poor judgment and insight Objective Data Vital Signs Vital Signs: Vital Signs - 24 hr 04/25/24 19:04 04/25/24 19:30 04/25/24 20:54 Temperature 97.9 F Pulse Rate 78 Respiratory Rate 19 Blood Pressure 139/86 Pulse Oximetry 90 95 100 Oxygen Delivery Room Air Nasal Cannula Non-Rebreather Mask Oxygen Flow Rate 2 10 04/25/24 21:00 04/25/24 21:33 04/25/24 21:36 Temperature Pulse Rate 64 68 Respiratory Rate 17 16 Blood Pressure 139/78 144/87 H Pulse Oximetry 100 100 100 Oxygen Delivery Nasal Cannula Oxygen Flow Rate 4 04/25/24 21:46 04/25/24 22:01 04/25/24 23:30 Temperature Pulse Rate 73 65 Respiratory Rate 15 15 Blood Pressure 153/90 H 117/75 Pulse Oximetry 100 100 98 Oxygen Delivery Nasal Cannula Oxygen Flow Rate 4 04/25/24 23:31 04/26/24 00:00 04/26/24 01:29 Temperature Pulse Rate 62 63 68 Respiratory Rate 13 16 16 Blood Pressure 119/77 134/92 H 143/84 H Pulse Oximetry 97 96 100 Oxygen Delivery Oxygen Flow Rate 04/26/24 02:07 04/26/24 06:00 Temperature 98.3 F Pulse Rate 71 Respiratory Rate 16 Blood Pressure 140/69 Pulse Oximetry 98 98 Oxygen Delivery Nasal Cannula Oxygen Flow Rate 4 Intake/Output Intake/Output: Intake & Output 04/23/24 04/24/24 04/25/24 04/26/24 23:59 23:59 23:59 23:59 Intake Total 150 1100 Output Total 400 Balance 150 700 Meds/Results Medications: Active Medications Generic Name Dose Route Start Last Admin Trade Name Freq PRN Reason Stop Dose Admin Albuterol 5 mg 04/26/24 08:00 04/26/24 09:39 Albuterol Sulfate Neb 2.5 Mg/3 Ml Inh INHALATION Not Given Q6HRT MICHOACANO Dextrose 12.5 gm 04/26/24 02:36 Dextrose 50% 25 Gm/50 Ml Syringe IV PUSH PRN PRN Hypoglycemia Protocol Glucagon 1 mg 04/26/24 02:36 Glucagon For Inj 1 Mg Vial IM PRN PRN Hypoglycemia Protocol Glucose 15 gm 04/26/24 02:36 Glucose Oral Gel 15 Gm Of Glucse In 37.5 Gm Tube PO PRN PRN Hypoglycemia Protocol Lactated Ringer's 1,000 mls @ 125 mls/hr 04/26/24 01:30 04/26/24 03:25 Lr - Lactated Ringers Iv IV CONT 125 mls/hr .Q8H MICHOACANO Administration Thiamine HCl 500 mg in 100 mls @ 200 mls/hr 04/26/24 02:25 04/26/24 04:21 IVPB 05/01/24 02:24 Infused Q8H MICHOACANO Infusion Ceftriaxone Sodium 1 gm in 50 mls @ 100 mls/hr 04/26/24 21:00 Rocephin 1 Gm/Ns 50 Ml IVPB Q24H MICHOACANO Dextrose 1,000 mls @ 100 mls/hr 04/26/24 02:36 Dextrose 5% 1,000 Ml IVPB PRN PRN Hypoglycemia Protocol Ibuprofen 400 mg 04/26/24 01:26 Ibuprofen 400 Mg Tablet PO Q6H PRN Mild Pain (1-3) or Fever Ipratropium [place] 0.5 mg 04/26/24 08:00 04/26/24 09:39 Ipratropium Br 0.02% Inh Soln 0.5 Mg/2.5 Ml Vial INHALATION Not Given Q6HRT MICHOACANO Ondansetron HCl 4 mg 04/26/24 01:26 Ondansetron Inj 4 Mg/2 Ml Vial IV PUSH Q4H PRN Nausea Radiology Results: ITS Impressions Head CT 04/25/24 19:52 IMPRESSION: No acute intracranial process. Cervical Spine CT 04/25/24 19:55 IMPRESSION: No acute fracture or traumatic malalignment in the cervical spine. Chest X-Ray 04/25/24 19:57 IMPRESSION: Mild interstitial edema. Streaky subsegmental bibasilar atelectasis/consolidation. Possible trace bilateral effusions. Abdomen Ultrasound 04/25/24 21:27 IMPRESSION: Cirrhosis with portal hypertension. Cholelithiasis. Pancreatic duct dilation. Chest/Abdomen/Pelvis CTA 04/25/24 21:32 IMPRESSION: Limited evaluation of the segmental and subsegmental pulmonary arteries. No central pulmonary embolus detected. Mild interstitial pulmonary edema. No pleural effusion is detected. Cirrhosis with portal hypertension. Chronic pancreatitis with marked pancreatic duct dilation. Correlate with pancreatic labs. Labs Labs: Laboratory Results - last 24 hr 04/25/24 04/25/24 04/25/24 01:15 19:07 19:16 WBC RBC Hgb Hct MCV MCH MCHC RDW Plt Count MPV Immature Gran % (Auto) Neut % (Auto) Lymph % (Auto) [place] % (Auto) Eos % (Auto) Baso % (Auto) Lymph # (Auto) [place] # (Auto) Eos # (Auto) Baso # (Auto) Abs Immat Gran (auto) Absolute Neuts (auto) Absolute Nucleated RBC Nucleated RBC % PT INR APTT D-Dimer Puncture Site ABG pH ABG pCO2 ABG pO2 ABG PO2/FiO2 Ratio ABG HCO3 ABG O2 Saturation ABG O2 Content ABG Base Excess A-a Gradient Oxyhemoglobin Total Hemoglobin O2 Delivery Device O2 Liters/Min FiO2 Sodium Potassium Chloride Carbon Dioxide Anion Gap BUN Creatinine Estim Creat Clear Calc Estimated GFR Glucose POC Capillary Glucose 129 H Lactic Acid Calcium Magnesium Total Bilirubin Direct Bilirubin Indirect Bilirubin AST ALT Alkaline Phosphatase Ammonia 62 H Total Creatine Kinase Troponin I NT-Pro-B Natriuret Pep Total Protein Albumin Lipase TSH Urine Color Urine Appearance Urine pH Ur Specific [place] Urine Protein Urine Glucose (UA) Urine Ketones Ur Blood (Man) Urine Nitrate Urine Bilirubin Urine Urobilinogen Leukocyte Esterase Rfl Urine RBC Urine WBC Ur Squamous Epith Cells Urine Bacteria Urine Casts POC Urine HCG, Qual Negative Salicylates Urine Opiates Screen Urine Methadone Screen Acetaminophen Ur Barbiturates Screen Ur Phencyclidine Scrn Ur Amphetamine Screen U Benzodiazepines Scrn Urine Cocaine Screen U Cannabinoids Screen Ethyl Alcohol Influenza A (RT-PCR) Influenza B (RT-PCR) RSV (RT-PCR) SARS-CoV-2 RNA (RT-PCR) 04/25/24 04/25/24 04/25/24 19:19 19:27 19:27 WBC 6.4 RBC 4.86 Hgb 17.1 H Hct 48.4 H MCV 99.6 MCH 35.2 H MCHC 35.3 RDW 13.6 Plt Count 145 L MPV 10.5 H Immature Gran % (Auto) 0.5 Neut % (Auto) 58.6 Lymph % (Auto) 22.9 [place] % (Auto) 15.8 H Eos % (Auto) 1.1 Baso % (Auto) 1.1 Lymph # (Auto) 1.47 [place] # (Auto) 1.0 H Eos # (Auto) 0.1 Baso # (Auto) 0.1 Abs Immat Gran (auto) 0.03 Absolute Neuts (auto) 3.8 Absolute Nucleated RBC 0.000 Nucleated RBC % 0.0 PT 18.6 H INR 1.5 APTT 34.6 D-Dimer 0.50 H Puncture Site Left radial ABG pH 7.490 H ABG pCO2 28.4 L ABG pO2 60.0 L ABG PO2/FiO2 Ratio 2.14 ABG HCO3 21.2 L ABG O2 Saturation 93.2 L ABG O2 Content 22.1 H ABG Base Excess -0.5 A-a Gradient 106.1 Oxyhemoglobin 90.0 Total Hemoglobin 17.5 O2 Delivery Device Nasal cannula O2 Liters/Min 2.0 FiO2 28 Sodium 141 Potassium 3.4 Chloride 110 H Carbon Dioxide 22 Anion Gap 9 BUN 11 Creatinine 0.60 L Estim Creat Clear Calc 85 Estimated GFR > 60 Glucose 119 H POC Capillary Glucose Lactic Acid 2.0 Calcium 8.9 Magnesium 1.4 L Total Bilirubin 3.2 H Direct Bilirubin 0.0 Indirect Bilirubin 1.9 H AST 65 H ALT 41 H Alkaline Phosphatase 142 H Ammonia Total Creatine Kinase 203 H Troponin I < 0.012 NT-Pro-B Natriuret Pep < 20 Cancelled Total Protein 8.0 Albumin 3.6 Lipase < 10 L TSH 1.870 Urine Color Urine Appearance Urine pH Ur Specific [place] Urine Protein Urine Glucose (UA) Urine Ketones Ur Blood (Man) Urine Nitrate Urine Bilirubin Urine Urobilinogen Leukocyte Esterase Rfl Urine RBC Urine WBC Ur Squamous Epith Cells Urine Bacteria Urine Casts POC Urine HCG, Qual Salicylates < 1.0 L Urine Opiates Screen Urine Methadone Screen Acetaminophen < 10 L Ur Barbiturates Screen Ur Phencyclidine Scrn Ur Amphetamine Screen U Benzodiazepines Scrn Urine Cocaine Screen U Cannabinoids Screen Ethyl Alcohol < 10 Influenza A (RT-PCR) Negative Influenza B (RT-PCR) Negative RSV (RT-PCR) Negative SARS-CoV-2 RNA (RT-PCR) Negative 04/25/24 04/26/24 20:11 05:39 WBC RBC Hgb Hct MCV MCH MCHC RDW Plt Count MPV Immature Gran % (Auto) Neut % (Auto) Lymph % (Auto) [place] % (Auto) Eos % (Auto) Baso % (Auto) Lymph # (Auto) [place] # (Auto) Eos # (Auto) Baso # (Auto) Abs Immat Gran (auto) Absolute Neuts (auto) Absolute Nucleated RBC Nucleated RBC % PT INR APTT D-Dimer Puncture Site ABG pH ABG pCO2 ABG pO2 ABG PO2/FiO2 Ratio ABG HCO3 ABG O2 Saturation ABG O2 Content ABG Base Excess A-a Gradient Oxyhemoglobin Total Hemoglobin O2 Delivery Device O2 Liters/Min FiO2 Sodium Potassium Chloride Carbon Dioxide Anion Gap BUN Creatinine Estim Creat Clear Calc Estimated GFR Glucose POC Capillary Glucose 111 H Lactic Acid Calcium Magnesium Total Bilirubin Direct Bilirubin Indirect Bilirubin AST ALT Alkaline Phosphatase Ammonia Total Creatine Kinase Troponin I NT-Pro-B Natriuret Pep Total Protein Albumin Lipase TSH Urine Color Dark yellow Urine Appearance Cloudy H Urine pH 6.0 Ur Specific [place] 1.029 Urine Protein 1+ H Urine Glucose (UA) Negative Urine Ketones Trace H Ur Blood (Man) Negative Urine Nitrate Positive H Urine Bilirubin 2+ H Urine Urobilinogen 4.0 H Leukocyte Esterase Rfl 2+ H Urine RBC 3-5 H Urine WBC 51-100 H Ur Squamous Epith Cells Occasional Urine Bacteria 4+ Urine Casts 3-5 POC Urine HCG, Qual Salicylates Urine Opiates Screen Negative Urine Methadone Screen Negative Acetaminophen Ur Barbiturates Screen Negative Ur Phencyclidine Scrn Negative Ur Amphetamine Screen Negative U Benzodiazepines Scrn Positive A Urine Cocaine Screen Negative U Cannabinoids Screen Negative Ethyl Alcohol Influenza A (RT-PCR) Influenza B (RT-PCR) RSV (RT-PCR) SARS-CoV-2 RNA (RT-PCR) Quality VTE Prophylaxis VTE prophylaxis: mechanical ordered (SCDs)
[2024-04-26] MEDS: ALBUTEROL SULFATE NEB 2.5 MG/3 ML INH 5 MG INHALATION ×2 (13:11→19:39)
[2024-04-26] MEDS: IPRATROPIUM BR 0.02% INH SOLN 0.5 MG/2.5 ML VIAL INHALATION ×2 (13:12→19:39)
[2024-04-26 16:52] LABS: Glucose Point of Care 125 mg/dl (65-105)
[2024-04-26 20:58] LABS: Glucose Point of Care 153 mg/dl (65-105)
[2024-04-27] VITALS (18 sets, daily range): BP systolic 102–127; BP diastolic 48–80; PULSE 55–97; RESP 18–20; TEMP 36.4–36.7; O2SAT 92–98
--- NOTE | 2024-04-27 | ECHO_ITS ---
Patient Info Name: Amee Oconnell Age: 49 years : 1975 Gender: Female Ht: 64 in Wt: 146 lbs BSA: 1.74 m2 HR: 72 bpm BP: 126 / 80 mmHg Heart Rhythm: Sinus Rhythm Technical Quality: Good Exam Date: 04/27/2024 10:12 AM Exam Location: Echo Lab Exam Room: [facility] [place] Patient Status: Inpatient Admit Date: 04/26/2024 Staff Ordering Physician: Patricia Khanna PA-C Bulldozer Operator: Kenzie Melton RDCS Attending Provider: Patricia Khanna PA-C Referring Physician: Clemenica GROSS; Exam Type: CA echo doppler color flow Study Info Complete two-dimensional, color flow and Doppler transthoracic echocardiogram is performed. Summary 1. Complete two-dimensional, color flow and Doppler transthoracic echocardiogram is performed. 2. Left ventricular chamber dimension is normal. 3. Left ventricular wall thickness is normal. 4. Left ventricular systolic function is normal with an ejection fraction by Biplane Method of Discs of 67 %. 5. The left ventricular diastolic function is grade I diastolic dysfunction. 6. Right ventricular chamber dimension is normal. 7. Right ventricular systolic function is normal. Left Ventricle Left ventricular chamber dimension is normal. Left ventricular wall thickness is normal. Left ventricular systolic function is normal with an ejection fraction by Biplane Method of Discs of 67 %. The left ventricular diastolic function is grade I diastolic dysfunction. Right Ventricle Right ventricular chamber dimension is normal. Right ventricular systolic function is normal. Left Atria Left atrial chamber dimension is mildly enlarged. Right Atria Right atrial chamber dimension is normal. Aortic Valve There is no aortic valve stenosis with a peak velocity of 167 cm/s, mean gradient of 5 mmHg. There is no aortic valve regurgitation. Mitral Valve There is no mitral valve regurgitation. There is no mitral valve stenosis. Tricuspid Valve There is no significant tricuspid valve regurgitation. PASP cannot be calculated because of insufficient TR jet. Pericardium/Pleural There is no pericardial effusion. Inferior Vena Cava Normal inferior vena cava with inspiratory collpase not mdone. Aorta The aortic root size at the sinus of Valsalva is normal. The prox ascending aorta size is normal. Left Ventricular Outflow Tract Name Value Normal LVOT 2D LVOT Diameter 2.3 cm Pulmonic Valve Name Value Normal PV Doppler PV Peak Velocity 129 cm/s PV Peak Gradient 7 mmHg Mitral Valve Name Value Normal MV Doppler MV Peak Gradient 3 mmHg MV Mean Gradient 1 mmHg MV Decel Kendall 290 cm/s2 MV PHT 77 ms MV Area (PHT) 2.9 cm2 4.0-5.0 MV Diastolic Function MV E Peak Velocity 77 cm/s MV A Peak Velocity 93 cm/s MV E/A 0.8 MV Decel Time 265 ms MV Annular TDI MV Septal e' Velocity 4.6 cm/s >=8.0 MV E/e' (Septal) 16.9 <=8.0 MV Lateral e' Velocity 10.8 cm/s >=10.0 MV E/e' (Lateral) 7.1 <=8.0 MV e' Average 7.69 MV E/e' (Average) 12.0 Tricuspid Valve Name Value Normal TV Annular TDI TV Lateral Janet s' Velocity 17.2 cm/s 9.5-18.7 Aorta Name Value Normal Ascending Aorta Ao Root Diameter (2D) 2.9 cm Ao Root Diam Index (2D) 1.7 cm/m2 Aortic Valve Name Value Normal AV Doppler AV Peak Velocity 167 cm/s AV Peak Gradient 11 mmHg AV Mean Gradient 5 mmHg AV VTI 33 cm AV Regurgitation 2D LVOT Area 4.0 cm2 Ventricles Name Value Normal LV Dimensions 2D/MM IVS Diastolic Thickness (2D) 1.0 cm 0.6-1.0 LVID Diastole (2D) 4.8 cm 3.8-5.2 LVIW Diastolic Thickness (2D) 0.9 cm 0.6-0.9 LVID Systole (2D) 3.1 cm 2.2-3.5 LVOT Diameter 2.3 cm LV Mass (2D Cubed) 158.62 g 67.00-162.00 LV Mass Index (2D Cubed) 91 g/m2 43-95 Relative Wall Thickness (2D) 0.38 LV Fractional Shortening/Ejection Fraction 2D/MM LV Fractional Shortening (2D) 35 % 27-45 LV EF (2D Teicholz) 65 % 54-74 LV Diastolic Volume (4C MOD) 157 ml LV EF (4C MOD) 68 % LV Diastolic Volume (2C MOD) 124 ml LV EF (2C MOD) 62 % LV Diastolic Volume (BP MOD) 147 ml 46-106 LV Diastolic Volume Index (BP MOD) 84 ml/m2 29-61 LV Systolic Volume (BP MOD) 48 ml 14-42 LV Systolic Volume Index (BP MOD) 28 ml/m2 8-24 LV EF (BP MOD) 67 % 54-74 LV Diastolic Length (4C) 8.3 cm LV Systolic Length (4C) 7.0 cm LV Stroke Volume (4C MOD) 107 ml LV CO (BP MOD) 7.8 l/min LV CI (BP MOD) 4.5 l/min/m2 Atria Name Value Normal LA Dimensions LA Dimension (2D) 4.6 cm 2.7-3.8 LA Dimen Index (2D) 2.6 cm/m2 LA Volume (4C A-L) 48 ml LA Volume (BP A-L) 62 ml RA Dimensions RA Area (4C) 16.3 cm2 <=18.0 Report Signatures
[2024-04-27] MEDS: IBUPROFEN 400 MG TABLET PO (01:10)
[2024-04-27] MEDS: IPRATROPIUM BR 0.02% INH SOLN 0.5 MG/2.5 ML VIAL INHALATION ×4 (01:45→19:52)
[2024-04-27] MEDS: ALBUTEROL SULFATE NEB 2.5 MG/3 ML INH 5 MG INHALATION ×4 (01:45→19:52)
[2024-04-27] MEDS: THIAMINE 500 MG/NS 100 ML 500 MG/100 ML BAG 200 MG IVPB ×3 (06:06→21:41)
[2024-04-27 07:00] LABS: Basophils Absolute Auto 0.1 K/mm3 (0.0-0.1); Basophils Percent Auto 0.8 % (0.2-1.2); Eosinophils Percent Auto 0.7 % (0-4.4); Hematocrit 43.9 % (37.0-47.0); Hemoglobin 15.5 g/dL (12.0-15.0); Immature Granulocyte Absolute 0.04 K/mm3 (0.00-0.031); Immature Granulocyte Percent A 0.7 % (0-0.5); Immature Platelet Fraction Pct 4.2 % (0.9-11.2); Lymphocytes Absolute Auto 1.35 K/mm3 (0.9-3.2); Mean Corpuscular HGB Conc 35.3 g/dl (32-36); Mean Corpuscular Hemoglobin 35.1 pg (26-34); Mean Corpuscular Volume 99.3 fl (80-100); Mean Platelet Volume 10.5 fl (7.4-10.4); Monocytes Absolute Auto 0.9 K/mm3 (0.1-0.6); Monocytes Percent Auto 14.2 % (2.6-8.5); Neutrophils Absolute Auto 3.8 K/mm3 (1.3-6.7); Neutrophils Percent Auto 61.6 % (45.5-73.1); Platelet Count Result 117 k/mm3 (150-375); Red Blood Count 4.42 M/mm3 (4.2-5.4); Red Cell Distribution Width 13.2 % (11.5-14.5); White Blood Count 6.1 K/mm3 (4.5-10.0)
[2024-04-27 07:05] LABS: INR 1.8; Prothrombin Time 21.2 Seconds (11.1-14.7)
[2024-04-27 07:06] LABS: Partial Thromboplastin Time 34.2 Seconds (22.3-36.8)
[2024-04-27 07:09] LABS: Alanine Aminotransferase 35 U/L (6-35); Albumin Level 3.3 g/dL (3.5-5.1); Alkaline Phosphatase 121 U/L (38-126); Anion Gap 9 mmol/L (4-12); Aspartate Amino Transferase 77 U/L (14-36); Bilirubin,Total 3.5 mg/dL (0.2-1.3); Blood Urea Nitrogen 5 mg/dL (7-17); Calcium 8.4 mg/dL (8.4-10.2); Carbon Dioxide 20 mmol/L (22-30); Chloride 107 mmol/L (98-107); Creatine Kinase 801 U/L (30-135); Estimated CRCL calculation 117 ml/min; Estimated Glomerular Filt Rate > 60; Glucose 95 mg/dL (65-110); Magnesium 1.2 mg/dL (1.6-2.3); Phosphorus 3.7 mg/dL (2.5-4.5); Sodium 136 mmol/L (137-145)
--- NOTE | 2024-04-27 07:55 | P.PNIM_ITS ---
Progress Note: A&P Assessment and Plan (1) Altered mental status: Code(s): R41.82 - Altered mental status, unspecified Status: Acute Assessment and Plan: Likely multifactorial from hepatic encephalopathy, hypoxia, and UTI. See plan below UDS: Positive for benzos EtOH < 10 Ammonia 64 >> 79, started on lactulose daily Head CT: No acute intracranial process C spine CT: No acute fracture or traumatic malalignment in the c spine CXR: Mild interstitial edema. Streaky subsegmental bibasilar atelectasis/consolidation. Possible trace bilateral effusions. Chest CTA: Limited evaluation of the segmental and subsegmental pulmonary arteries. No central pulmonary embolus detected. Mild interstitial pulmonary edema. No pleural effusion is detected. Cirrhosis with portal hypertension. Chronic pancreatitis with marked pancreatic duct dilation. Correlate with pancreatic labs. Abdomen US: Cirrhosis with portal HTN. Cholelithiasis. Pancreatic duct dilation. Monitor (2) Acute hypoxic respiratory failure: Code(s): J96.01 - Acute respiratory failure with hypoxia Status: Acute Assessment and Plan: Per chart review patient was noted to have hypoxia with an oxygen saturation of 88% by EMS were applied nasal cannula. Room air at baseline, requiring 4L NC at time of admission. CXR: Mild interstitial edema. Streaky subsegmental bibasilar atelectasis/consolidation. Possible trace bilateral effusions. Chest CTA: Limited evaluation of the segmental and subsegmental pulmonary arteries. No central pulmonary embolus detected. Mild interstitial pulmonary edema. No pleural effusion is detected. Cirrhosis with portal hypertension. Chronic pancreatitis with marked pancreatic duct dilation. Correlate with pancreatic labs. - Viral PCR: negative for Flu/COVID/RSV - 2L NC oxygen supplementation, baseline RA - Echo ordered - Lipase < 10, pleural effusion likely not secondary to pancreatitis - Monitor vital signs, I&Os, neuro status and patient is a fall risk - Follow WBC, serum electrolytes, temperature curves and cultures (3) Hepatic encephalopathy: Code(s): K76.82 - Hepatic encephalopathy Status: Acute Assessment and Plan: Patient's ammonia level is elevated at 64 on admission Given lactulose enema x1 Ammonia level 79 on am labs Started on lactulose PO scheduled monitor (4) Transaminitis: Code(s): R74.01 - Elevation of levels of liver transaminase levels Status: Acute Assessment and Plan: LFTs on admission: Bili 3.2, AST 65, ALT 41, alk phos 142 LFTs: Bili 3.5, AST 77, ALT 35, Alk phos 121 on am labs Abdomen US: Cirrhosis with portal HTN. Cholelithiasis. Pancreatic duct dilation. Monitor (5) UTI (urinary tract infection): Qualifiers: Hematuria presence: without hematuria Urinary tract infection type: acute cystitis Qualified Code(s): N30.00 - Acute cystitis without hematuria Code(s): N39.0 - Urinary tract infection, site not specified Status: Acute Assessment and Plan: - encephalopathy likely multifactorial - UA: cloudy appearance with 1+ protein, trace ketones, positive nitrates, 2+ bili, 4.0 urobilinogen, 2+ leukocytes, 3-5 RBC, 51-100 WBC, 4+ bacteria, occasional squamous cells - UC obtained on 04/25: preliminary - E coli - No previous micro to be reviewed - started on Rocephin - IV maintenance fluids (6) Thrombocytopenia: Code(s): D69.6 - Thrombocytopenia, unspecified Status: Acute Assessment and Plan: PLT 145 on admission. - PLT 117 on am labs - No signs of active bleeding - Monitor (7) Polycythemia: Code(s): D75.1 - Secondary polycythemia Status: Acute Assessment and Plan: The patient does have polycythemia but with given her clubbing noted on nail beds I suspect patient likely has underlying chronic lung disease. Polycythemia is likely due to volume depletion and possible chronic hypoxia. The patient was [facility] the [facility] and they did not know much of the patient's history. Will place patient on scheduled nebulizer treatments and continue supplemental oxygen as needed. (8) Hypomagnesemia: Code(s): E83.42 - Hypomagnesemia Status: Acute Assessment and Plan: Patient Magnesium level low replaced monitor (9) Alcoholic cirrhosis: Qualifiers: Ascites presence: unspecified Qualified Code(s): K70.30 - Alcoholic cirrhosis of liver without ascites Code(s): K70.30 - Alcoholic cirrhosis of liver without ascites Status: Acute Assessment and Plan: waiting for records from [place] when available. However given the patient's lipase is not elevated she does not have acute pancreatitis. reports last drink months ago Plan Patient will remain NPO until mental status improves. Will check Accu-Cheks q.6 hours while NPO. Hypoglycemia protocol has been ordered as needed. Time Spent With Patient Time with patient: 25 - 35 minutes Subjective Date/time seen: 04/27/24 07:55 Interval history: 49-year-old female with past medical history of alcohol cirrhosis, chronic pancreatitis, and psychiatric disorder who presented to the ER from [facility] due to low oxygen saturations an altered mental status. Patient is pleasant lying in bed. She remains confused at AOx1 (self) during assessment. She has no complaints however unsure if this is true. She continues to have elevated ammonia level. Started on lactulose. UTI showing ecoli, sensitivities pending. Review of Systems Review of Systems: ROS unobtainable: Yes unobtainable due to mental status Exam Narrative: AF HR 89 RR 20 SPO2 98 2L NC BP 126/80 General: female in no acute respiratory distress who is nontoxic appearing, lying semi recumbent in bed. HEENT: Normocephalic. Atraumatic. Extraocular movement intact. Sclera clear and anicteric.No facial asymmetry. Chest: Lungs are clear to auscultation bilaterally. No wheezes or crackles. CV: Heart was regular rate and rhythm. S1-S2. No murmurs, gallops, or rubs. Abd: Abdomen was soft. Nontender. Nondistended. Positive bowel sounds. No organomegaly or masses. Ext: No clubbing, cyanosis, or edema. 2+ DP pulses bilaterally. Neuro: Patient is alert and oriented x1 (self). Cranial nerves 2-12 are intact. Speech is clear. Objective Data Vital Signs Vital Signs: Vital Signs - 24 hr 04/26/24 08:00 04/26/24 12:00 04/26/24 13:12 Temperature Pulse Rate 98 77 Respiratory Rate Blood Pressure Pulse Oximetry 93 Oxygen Delivery Nasal Cannula Oxygen Flow Rate 3 04/26/24 13:12 04/26/24 13:25 04/26/24 14:00 Temperature 97.9 F Pulse Rate 63 72 88 Respiratory Rate 20 20 16 Blood Pressure 144/62 H Pulse Oximetry 100 Oxygen Delivery Oxygen Flow Rate 04/26/24 16:00 04/26/24 19:40 04/26/24 19:40 Temperature Pulse Rate 72 84 Respiratory Rate 20 Blood Pressure Pulse Oximetry 93 Oxygen Delivery Nasal Cannula Oxygen Flow Rate 3 04/26/24 19:54 04/26/24 20:00 04/26/24 20:00 Temperature Pulse Rate 82 99 Respiratory Rate 20 Blood Pressure Pulse Oximetry 94 Oxygen Delivery Nasal Cannula Oxygen Flow Rate 2 04/26/24 21:30 04/27/24 00:00 04/27/24 01:45 Temperature 98.2 F Pulse Rate 77 83 80 Respiratory Rate 24 H 20 Blood Pressure 136/72 Pulse Oximetry 97 Oxygen Delivery Oxygen Flow Rate 04/27/24 01:55 04/27/24 04:00 04/27/24 05:41 Temperature 97.7 F Pulse Rate 86 88 72 Respiratory Rate 20 18 Blood Pressure 126/80 Pulse Oximetry 98 Oxygen Delivery Oxygen Flow Rate Intake/Output Intake/Output: Intake & Output 04/24/24 04/25/24 04/26/24 04/27/24 23:59 23:59 23:59 23:59 Intake Total 150 3090 100 Output Total 1500 725 Balance 150 1590 -625 Meds/Results Medications: Active Medications Generic Name Dose Route Start Last Admin Trade Name Freq PRN Reason Stop Dose Admin Albuterol 5 mg 04/26/24 08:00 04/27/24 01:45 Albuterol Sulfate Neb 2.5 Mg/3 Ml Inh INHALATION 5 mg Q6HRT MICHOAACNO Administration Dextrose 12.5 gm 04/26/24 02:36 Dextrose 50% 25 Gm/50 Ml Syringe IV PUSH PRN PRN Hypoglycemia Protocol Glucagon 1 mg 04/26/24 02:36 Glucagon For Inj 1 Mg Vial IM PRN PRN Hypoglycemia Protocol Glucose 15 gm 04/26/24 02:36 Glucose Oral Gel 15 Gm Of Glucse In 37.5 Gm Tube PO PRN PRN Hypoglycemia Protocol Lactated Ringer's 1,000 mls @ 125 mls/hr 04/26/24 01:30 04/26/24 23:41 Lr - Lactated Ringers Iv IV CONT 125 mls/hr .Q8H MICHOACANO Administration Thiamine HCl 500 mg in 100 mls @ 200 mls/hr 04/26/24 02:25 04/27/24 06:35 IVPB 05/01/24 02:24 Infused Q8H MICHOACANO Infusion Ceftriaxone Sodium 1 gm in 50 mls @ 100 mls/hr 04/26/24 21:00 04/26/24 21:10 Rocephin 1 Gm/Ns 50 Ml IVPB Infused Q24H MICHOACANO Infusion Dextrose 1,000 mls @ 100 mls/hr 04/26/24 02:36 Dextrose 5% 1,000 Ml IVPB PRN PRN Hypoglycemia Protocol Ibuprofen 400 mg 04/26/24 01:26 04/27/24 01:10 Ibuprofen 400 Mg Tablet PO 400 mg Q6H PRN Administration Mild Pain (1-3) or Fever Ipratropium [place] 0.5 mg 04/26/24 08:00 04/27/24 01:45 Ipratropium Br 0.02% Inh Soln 0.5 Mg/2.5 Ml Vial INHALATION 0.5 mg Q6HRT MICHOACANO Administration Ondansetron HCl 4 mg 04/26/24 01:26 Ondansetron Inj 4 Mg/2 Ml Vial IV PUSH Q4H PRN Nausea Radiology Results: ITS Impressions Head CT 04/25/24 19:52 IMPRESSION: No acute intracranial process. Cervical Spine CT 04/25/24 19:55 IMPRESSION: No acute fracture or traumatic malalignment in the cervical spine. Chest X-Ray 04/25/24 19:57 IMPRESSION: Mild interstitial edema. Streaky subsegmental bibasilar atelectasis/consolidation. Possible trace bilateral effusions. Abdomen Ultrasound 04/25/24 21:27 IMPRESSION: Cirrhosis with portal hypertension. Cholelithiasis. Pancreatic duct dilation. Chest/Abdomen/Pelvis CTA 04/25/24 21:32 IMPRESSION: Limited evaluation of the segmental and subsegmental pulmonary arteries. No central pulmonary embolus detected. Mild interstitial pulmonary edema. No pleural effusion is detected. Cirrhosis with portal hypertension. Chronic pancreatitis with marked pancreatic duct dilation. Correlate with pancreatic labs. Labs Labs: Laboratory Results - last 24 hr 04/26/24 04/26/24 04/27/24 16:49 20:51 06:09 WBC 6.1 RBC 4.42 Hgb 15.5 H Hct 43.9 MCV 99.3 MCH 35.1 H MCHC 35.3 RDW 13.2 Plt Count 117 L MPV 10.5 H Immature Gran % (Auto) 0.7 H Neut % (Auto) 61.6 Lymph % (Auto) 22.0 [place] % (Auto) 14.2 H Eos % (Auto) 0.7 Baso % (Auto) 0.8 Lymph # (Auto) 1.35 [place] # (Auto) 0.9 H Eos # (Auto) 0.0 Baso # (Auto) 0.1 Abs Immat Gran (auto) 0.04 H Absolute Neuts (auto) 3.8 Absolute Nucleated RBC 0.000 Nucleated RBC % 0.0 % Immature Plt Fraction 4.2 PT 21.2 H INR 1.8 APTT 34.2 Sodium 136 L Potassium 3.0 L Chloride 107 Carbon Dioxide 20 L Anion Gap 9 BUN 5 L D Creatinine 0.40 L Estim Creat Clear Calc 117 Estimated GFR > 60 Glucose 95 POC Capillary Glucose 125 H 153 H Calcium 8.4 Phosphorus 3.7 Magnesium 1.2 L Total Bilirubin 3.5 H AST 77 H ALT 35 Alkaline Phosphatase 121 Total Creatine Kinase 801 H Total Protein 7.0 Albumin 3.3 L Quality VTE Prophylaxis VTE prophylaxis: mechanical ordered (SCDs)
[2024-04-27] MEDS: MAGNESIUM SULF 2 GM/WATER 50ML 2 GM/50 ML BAG IVPB (08:12)
[2024-04-27 08:20] LABS: Glucose Point of Care 90 mg/dl (65-105)
[2024-04-27 09:10] LABS: Free T4 Free Thyroxine Reflex 1.54 ng/dL (0.78-2.19)
[2024-04-27 09:29] LABS: Ammonia 79 umol/L (9-30)
[2024-04-27 09:52] LABS: Total Triiodothyronine (T3) 0.91 NG/ML (0.97-1.69)
[2024-04-27] MEDS: POTASSIUM CHLORIDE INJ 40 MEQ in SODIUM CHLORIDE 0.9% IV 500 ML 130 MEQ IVPB (09:58)
[2024-04-27 11:26] LABS: Glucose Point of Care 109 mg/dl (65-105)
[2024-04-27 18:31] LABS: Glucose Point of Care 108 mg/dl (65-105)
[2024-04-27] MEDS: LACTATED RINGERS 1,000 ML 125 ML IV CONT (20:51)
[2024-04-27 21:58] LABS: NT Pro B Type Natriuretic Pept 256 pg/mL (19.9-100)
[2024-04-28] VITALS (23 sets, daily range): BP systolic 127–145; BP diastolic 70–86; PULSE 78–97; RESP 18–24; TEMP 36.5–37.7; O2SAT 87–97
[2024-04-28] MEDS: IPRATROPIUM BR 0.02% INH SOLN 0.5 MG/2.5 ML VIAL INHALATION ×4 (02:48→20:25)
[2024-04-28] MEDS: ALBUTEROL SULFATE NEB 2.5 MG/3 ML INH 5 MG INHALATION ×4 (02:48→20:25)
[2024-04-28] MEDS: THIAMINE 500 MG/NS 100 ML 500 MG/100 ML BAG 200 MG IVPB ×3 (06:10→23:30)
[2024-04-28] MEDS: LACTATED RINGERS 1,000 ML 125 ML IV CONT (06:28)
[2024-04-28 07:05] LABS: Ammonia 173 umol/L (9-30)
[2024-04-28 07:28] LABS: Glucose Point of Care 123 mg/dl (65-105)
[2024-04-28 07:39] LABS: Hematocrit 45.3 % (37.0-47.0); Hemoglobin 16.1 g/dL (12.0-15.0); Immature Platelet Fraction Pct 3.4 % (0.9-11.2); Mean Corpuscular HGB Conc 35.5 g/dl (32-36); Mean Corpuscular Hemoglobin 34.9 pg (26-34); Mean Corpuscular Volume 98.3 fl (80-100); Mean Platelet Volume 10.9 fl (7.4-10.4); Platelet Count Result 135 k/mm3 (150-375); Red Blood Count 4.61 M/mm3 (4.2-5.4); Red Cell Distribution Width 13.6 % (11.5-14.5); White Blood Count 6.9 K/mm3 (4.5-10.0)
[2024-04-28 07:52] LABS: Anion Gap 5 mmol/L (4-12); Blood Urea Nitrogen 9 mg/dL (7-17); Calcium 8.9 mg/dL (8.4-10.2); Carbon Dioxide 22 mmol/L (22-30); Chloride 109 mmol/L (98-107); Estimated CRCL calculation 96 ml/min; Estimated Glomerular Filt Rate > 60; Glucose 107 mg/dL (65-110); Potassium 3.8 mmol/L (3.4-5.0); Sodium 136 mmol/L (137-145)
--- NOTE | 2024-04-28 08:17 | PM.IMPN ---
Progress Note: A&P Assessment and Plan (1) Altered mental status: Code(s): R41.82 - Altered mental status, unspecified Status: Acute Assessment and Plan: Likely multifactorial from hepatic encephalopathy, hypoxia, and UTI. See plan below UDS: Positive for benzos EtOH < 10 Ammonia 64 >> 79 >> 173, started on lactulose TID and rifaximin BID Head CT: No acute intracranial process C spine CT: No acute fracture or traumatic malalignment in the c spine CXR: Mild interstitial edema. Streaky subsegmental bibasilar atelectasis/consolidation. Possible trace bilateral effusions. Chest CTA: Limited evaluation of the segmental and subsegmental pulmonary arteries. No central pulmonary embolus detected. Mild interstitial pulmonary edema. No pleural effusion is detected. Cirrhosis with portal hypertension. Chronic pancreatitis with marked pancreatic duct dilation. Correlate with pancreatic labs. Abdomen US: Cirrhosis with portal HTN. Cholelithiasis. Pancreatic duct dilation. 04/28: Likely 2/2 elevated ammonia level, lactulose enema BID ordered unable to give rifaximin given mental status Head CT unremarkable CXR 04/28: Decreased lung volumes with mild bibasilar opacities most likely atelectasis with differential including the mild pulmonary edema or pneumonia. ABG: pH 7.518, pCO2 25, pO2 55.6, HCO3 19.9 Neuro checks q4H (2) Acute hypoxic respiratory failure: Code(s): J96.01 - Acute respiratory failure with hypoxia Status: Acute Assessment and Plan: Per chart review patient was noted to have hypoxia with an oxygen saturation of 88% by EMS were applied nasal cannula. Room air at baseline, requiring 4L NC at time of admission. CXR: Mild interstitial edema. Streaky subsegmental bibasilar atelectasis/consolidation. Possible trace bilateral effusions. Chest CTA: Limited evaluation of the segmental and subsegmental pulmonary arteries. No central pulmonary embolus detected. Mild interstitial pulmonary edema. No pleural effusion is detected. Cirrhosis with portal hypertension. Chronic pancreatitis with marked pancreatic duct dilation. Correlate with pancreatic labs. - Viral PCR: negative for Flu/COVID/RSV - back to baseline RA - Echo 04/27: LVEF 67% with grade I diastolic dysfunction - Lipase < 10, pleural effusion likely not secondary to pancreatitis - Monitor vital signs, I&Os, neuro status and patient is a fall risk - Follow WBC, serum electrolytes, temperature curves and cultures CXR 04/28: Decreased lung volumes with mild bibasilar opacities most likely atelectasis with differential including the mild pulmonary edema or pneumonia. Likely edema as patients is afebrile, without leukocytosis. No antibiotics at this time. Lasix 40 mg IV x1 given. ABG: pH 7.518, pCO2 25, pO2 55.6, HCO3 19.9 (3) Hepatic encephalopathy: Code(s): K76.82 - Hepatic encephalopathy Status: Acute Assessment and Plan: Patient's ammonia level is elevated at 64 on admission Given lactulose enema x1 Ammonia level 173 on am labs Started on lactulose enema BID, unable to start rifaximin given mental status. Start when appropriate. monitor (4) Transaminitis: Code(s): R74.01 - Elevation of levels of liver transaminase levels Status: Acute Assessment and Plan: LFTs on admission: Bili 3.2, AST 65, ALT 41, alk phos 142 Abdomen US: Cirrhosis with portal HTN. Cholelithiasis. Pancreatic duct dilation. Hepatitis panel ordered Monitor (5) UTI (urinary tract infection): Qualifiers: Hematuria presence: without hematuria Urinary tract infection type: acute cystitis Qualified Code(s): N30.00 - Acute cystitis without hematuria Code(s): N39.0 - Urinary tract infection, site not specified Status: Acute Assessment and Plan: - encephalopathy likely multifactorial - UA: cloudy appearance with 1+ protein, trace ketones, positive nitrates, 2+ bili, 4.0 urobilinogen, 2+ leukocytes, 3-5 RBC, 51-100 WBC, 4+ bacteria, occasional squamous cells - UC obtained on 04/25: final - E coli with resistance to Augmentin, cefazolin, and Bactrim - No previous micro to be reviewed - started on Rocephin - IV maintenance fluids (6) Thrombocytopenia: Code(s): D69.6 - Thrombocytopenia, unspecified Status: Acute Assessment and Plan: PLT 145 on admission. - PLT 135 on am labs - No signs of active bleeding - Monitor (7) Polycythemia: Code(s): D75.1 - Secondary polycythemia Status: Acute Assessment and Plan: The patient does have polycythemia but with given her clubbing noted on nail beds I suspect patient likely has underlying chronic lung disease. Polycythemia is likely due to volume depletion and possible chronic hypoxia. The patient was relatively new patient at the [facility] and they did not know much of the patient's history. Will place patient on scheduled nebulizer treatments and continue supplemental oxygen as needed. (8) Hypomagnesemia: Code(s): E83.42 - Hypomagnesemia Status: Acute Assessment and Plan: Patient Magnesium level low replaced monitor (9) Alcoholic cirrhosis: Qualifiers: Ascites presence: unspecified Qualified Code(s): K70.30 - Alcoholic cirrhosis of liver without ascites Code(s): K70.30 - Alcoholic cirrhosis of liver without ascites Status: Acute Assessment and Plan: waiting for records from [place] when available. However given the patient's lipase is not elevated she does not have acute pancreatitis. reports last drink months ago Plan Patient will remain NPO until mental status improves. Will check Accu-Cheks q.6 hours while NPO. Hypoglycemia protocol has been ordered as needed. Time Spent With Patient Time with patient: Greater than 35 minutes Subjective Date/time seen: 04/28/24 08:17 Interval history: 49-year-old female with past medical history of alcohol cirrhosis, chronic pancreatitis, and psychiatric disorder who presented to the ER from [facility] due to low oxygen saturations an altered mental status. Call received from patients RN that she was increasingly lethargic. Reported to patients room at that time and she was only responsive to painful stimuli not following any commands. Her ammonia level was more elevated this morning on am labs and likely contributing to the AMS as well as the ongoing infections. A head CT was obtained and unremarkable. Chest XR showing pulm edema, given lasix 40 mg IV. ABG showing resp alkolosis, O2 increased 3L NC. Due to patients worsening mental status she was transferred to IMU for closer observation. Discussed patient with Dr. Lopez who agrees with lactulose enemas BID to decrease the ammonia level, unfortunately unable to give rifaximin given mental status and safety concern with oral medications. Returned to patients room and she remains alert only to pain. Per RN she had a large bowel movement following the enema. Vitals remain stable. Continue neuro checks. Review of Systems Review of Systems: ROS unobtainable: Yes unobtainable due to mental status Exam Narrative: AF HR 88 RR 22 SpO2 95 3L NC BP 145/80 General: female in no acute respiratory distress who is ill appearing, lying semi recumbent in bed. HEENT: Normocephalic. Atraumatic. Pupils equal round reactive to light. Sclera clear and anicteric. Chest: Lungs are diminished to auscultation bilaterally. No wheezes or crackles. CV: Heart was regular rate and rhythm. S1-S2. No murmurs, gallops, or rubs. Abd: Abdomen was soft. Nontender. Nondistended. Positive bowel sounds. No organomegaly or masses. Ext: No clubbing, cyanosis, or edema. 2+ DP pulses bilaterally. Neuro: Patient is alert to pain. Not following commands. Objective Data Vital Signs Vital Signs: Vital Signs - 24 hr 04/27/24 09:05 04/27/24 09:05 04/27/24 09:16 Temperature Pulse Rate 84 80 Respiratory Rate 20 20 Blood Pressure Pulse Oximetry 92 Oxygen Delivery Nasal Cannula Oxygen Flow Rate 1 04/27/24 12:00 04/27/24 13:46 04/27/24 14:00 Temperature 97.5 F L Pulse Rate 81 85 92 Respiratory Rate 20 18 Blood Pressure 102/48 L Pulse Oximetry 96 Oxygen Delivery Oxygen Flow Rate 04/27/24 14:01 04/27/24 16:00 04/27/24 19:40 Temperature Pulse Rate 89 97 86 Respiratory Rate 20 20 Blood Pressure Pulse Oximetry Oxygen Delivery Oxygen Flow Rate 04/27/24 19:53 04/27/24 19:54 04/27/24 20:00 Temperature Pulse Rate 86 84 Respiratory Rate 20 Blood Pressure Pulse Oximetry 92 Oxygen Delivery Room Air Oxygen Flow Rate 04/27/24 21:14 04/27/24 21:30 04/28/24 00:00 Temperature 98.1 F Pulse Rate 83 92 Respiratory Rate 20 Blood Pressure 127/64 Pulse Oximetry 92 Oxygen Delivery Room Air Oxygen Flow Rate 04/28/24 02:48 04/28/24 02:57 04/28/24 04:16 Temperature 98.1 F Pulse Rate 85 87 78 Respiratory Rate 20 20 18 Blood Pressure 134/86 Pulse Oximetry 93 Oxygen Delivery Oxygen Flow Rate 04/28/24 07:38 04/28/24 07:55 Temperature Pulse Rate 86 84 Respiratory Rate 20 20 Blood Pressure Pulse Oximetry Oxygen Delivery Oxygen Flow Rate Intake/Output Intake/Output: Intake & Output 04/25/24 04/26/24 04/27/24 04/28/24 23:59 23:59 23:59 23:59 Intake Total 150 3090 2120 1120 Output Total 1500 3351 800 Balance 150 1590 -1231 320 Meds/Results Medications: Active Medications Generic Name Dose Route Start Last Admin Trade Name Freq PRN Reason Stop Dose Admin Albuterol 5 mg 04/26/24 08:00 04/28/24 07:38 Albuterol Sulfate Neb 2.5 Mg/3 Ml Inh INHALATION 5 mg Q6HRT MICHOACANO Administration Dextrose 12.5 gm 04/26/24 02:36 Dextrose 50% 25 Gm/50 Ml Syringe IV PUSH PRN PRN Hypoglycemia Protocol Glucagon 1 mg 04/26/24 02:36 Glucagon For Inj 1 Mg Vial IM PRN PRN Hypoglycemia Protocol Glucose 15 gm 04/26/24 02:36 Glucose Oral Gel 15 Gm Of Glucse In 37.5 Gm Tube PO PRN PRN Hypoglycemia Protocol Lactated Ringer's 1,000 mls @ 125 mls/hr 04/26/24 01:30 04/28/24 06:29 Lr - Lactated Ringers Iv IV CONT Not Given .Q8H MICHOACANO Thiamine HCl 500 mg in 100 mls @ 200 mls/hr 04/26/24 02:25 04/28/24 06:10 IVPB 05/01/24 02:24 200 mls/hr Q8H MICHOACANO Administration Ceftriaxone Sodium 1 gm in 50 mls @ 100 mls/hr 04/26/24 21:00 04/27/24 21:20 Rocephin 1 Gm/Ns 50 Ml IVPB Infused Q24H MICHOACANO Infusion Dextrose 1,000 mls @ 100 mls/hr 04/26/24 02:36 Dextrose 5% 1,000 Ml IVPB PRN PRN Hypoglycemia Protocol Ibuprofen 400 mg 04/26/24 01:26 04/27/24 01:10 Ibuprofen 400 Mg Tablet PO 400 mg Q6H PRN Administration Mild Pain (1-3) or Fever Ipratropium [place] 0.5 mg 04/26/24 08:00 04/28/24 07:38 Ipratropium Br 0.02% Inh Soln 0.5 Mg/2.5 Ml Vial INHALATION 0.5 mg Q6HRT MICHOACANO Administration Lactulose 20 gm 04/28/24 09:00 Lactulose 20 Gm/30 Ml Udc PO QAM MICHOACANO Ondansetron HCl 4 mg 04/26/24 01:26 Ondansetron Inj 4 Mg/2 Ml Vial IV PUSH Q4H PRN Nausea Perflutren Lipid Microsphere 0 ml 04/27/24 08:20 Perflutren Lipid Microspheres 1.5 Ml Vial Diluted To 10 Ml Total Volume IV PUSH 04/30/24 08:20 ONCE PRN adequate visualization Protocol Radiology Results: ITS Impressions Head CT 04/25/24 19:52 IMPRESSION: No acute intracranial process. Cervical Spine CT 04/25/24 19:55 IMPRESSION: No acute fracture or traumatic malalignment in the cervical spine. Chest X-Ray 04/25/24 19:57 IMPRESSION: Mild interstitial edema. Streaky subsegmental bibasilar atelectasis/consolidation. Possible trace bilateral effusions. Abdomen Ultrasound 04/25/24 21:27 IMPRESSION: Cirrhosis with portal hypertension. Cholelithiasis. Pancreatic duct dilation. Chest/Abdomen/Pelvis CTA 04/25/24 21:32 IMPRESSION: Limited evaluation of the segmental and subsegmental pulmonary arteries. No central pulmonary embolus detected. Mild interstitial pulmonary edema. No pleural effusion is detected. Cirrhosis with portal hypertension. Chronic pancreatitis with marked pancreatic duct dilation. Correlate with pancreatic labs. Labs Labs: Laboratory Results - last 24 hr 04/27/24 04/27/24 04/27/24 06:09 08:00 09:13 WBC RBC Hgb Hct MCV MCH MCHC RDW Plt Count MPV % Immature Plt Fraction Sodium Potassium Chloride Carbon Dioxide Anion Gap BUN Creatinine Estim Creat Clear Calc Estimated GFR Glucose POC Capillary Glucose 90 Calcium Ammonia 79 H NT-Pro-B Natriuret Pep 256 H Free T4 1.54 Total T3 0.91 L 04/27/24 04/27/24 04/27/24 11:23 17:11 21:26 WBC RBC Hgb Hct MCV MCH MCHC RDW Plt Count MPV % Immature Plt Fraction Sodium Potassium Chloride Carbon Dioxide Anion Gap BUN Creatinine Estim Creat Clear Calc Estimated GFR Glucose POC Capillary Glucose 109 H 108 H 123 H Calcium Ammonia NT-Pro-B Natriuret Pep Free T4 Total T3 04/28/24 06:44 WBC 6.9 RBC 4.61 Hgb 16.1 H Hct 45.3 MCV 98.3 MCH 34.9 H MCHC 35.5 RDW 13.6 Plt Count 135 L MPV 10.9 H % Immature Plt Fraction 3.4 Sodium 136 L Potassium 3.8 Chloride 109 H Carbon Dioxide 22 Anion Gap 5 BUN 9 Creatinine 0.50 L Estim Creat Clear Calc 96 Estimated GFR > 60 Glucose 107 POC Capillary Glucose Calcium 8.9 Ammonia 173 H NT-Pro-B Natriuret Pep Free T4 Total T3 Quality VTE Prophylaxis VTE prophylaxis: mechanical ordered
[2024-04-28 09:09] LABS: Glucose Point of Care 126 mg/dl (65-105)
[2024-04-28 10:04] LABS: Alveolar/Arterial O2 Gradient 85.8 mmHg; Base Excess ABG -0.9 mEq/l (+/-2.0); Fractional Inspired Oxygen 24 %; HCO3 ABG 19.9 mEq/l (22.0-26.0); Oxygen Content ABG 21.2 %vol (16.0-22.0); Oxygen Saturation ABG 92.3 % (95.0-100.0); Oxyhemoglobin 89.3 % THb (90.0-100.0); PO2 ABG 55.6 mmHg (80.0-100.0); PO2 FiO2 Ratio Arterial Blood 2.32 %; Total Hemoglobin 16.9 g/dL (12.0-18.0)
[2024-04-28 10:06] LABS: Hepatitis B Surface Antigen Negative (Negative)
[2024-04-28 10:12] LABS: HAV RESULT Negative (Negative); Hepatitis B Core IgM Result Negative (Negative)
[2024-04-28 10:23] LABS: Hepatitis C Virus Antibody Negative (Negative)
[2024-04-28 10:25] LABS: Device NASAL CANNULA; Site Drawn RIGHT RADIAL; pH ABG 7.518 (7.350-7.450)
--- NOTE | 2024-04-28 10:30 | PCNFU ---
Nutrition Follow-Up Complete: Inadequate energy intake related to altered mental status as evidenced by need for NPO at this time Goal:Diet order PO intake 75% of meals Pt was progressing towards goal but no longer is doing so today Pt current nutrition is Regular, minced and moist level 5, Ensure compact BID. Nutrition recommendation: consider a speech evaluation Last recorded weight is 66.4 kg. Bowel Motility: +BM 04/28 Labs Reviewed: Hgb:15.5, NA:136, K:3.0, BUN:5, Cr:0.4 Meds Noted: lactulose, KCL Skin: WNL Additional Notes: Pt was advanced to a regular, minced and moist level 5, was eating well yesterday with 50-100% intake, however pt today is lethargic and not responsive to much today. Chest x-ray and CT of head scheduled for today. Intake is poor again due to mental status. May need a swallow evaluation per nursing. Monitor status, diet order, intake, wt, labs. Follow up in 3 days.
[2024-04-28] MEDS: LACTULOSE ENEMA 200 GM/1,000 ML ENEMA RECTAL (10:58)
[2024-04-28 11:53] LABS: Glucose Point of Care 123 mg/dl (65-105)
[2024-04-28] MEDS: FUROSEMIDE INJ 40 MG/4 ML VIAL IV PUSH (12:09)
--- NOTE | 2024-04-28 12:40 | PC.NURSE ---
This patient, Amee Oconnell, was transferred to [[id number]] on 04/28/24 at 1240. Personal belongings sent with patient. Report given to [ ]. Appropriate documentation sent with patient.
--- NOTE | 2024-04-28 12:40 | PC.NURSE ---
This patient, Amee Oconnell, was transferred to [[id number]] on 04/28/24 at 1240. Personal belongings sent with patient. Report given to [brigid]. Appropriate documentation sent with patient.
--- NOTE | 2024-04-28 14:40 | PC.NURSE ---
This patient, Amee Oconnell, was received from [facility] on 04/28/24 at 1250. Patient awakens to painful stimuli. Unable to comprehend at this time.
[2024-04-28 16:52] LABS: Alveolar/Arterial O2 Gradient 264.9 mmHg; Fractional Inspired Oxygen 50 %; HCO3 ABG 22.1 mEq/l (22.0-26.0); Oxygen Content ABG 22.3 %vol (16.0-22.0); Oxygen Saturation ABG 93.9 % (95.0-100.0); Oxyhemoglobin 91.8 % THb (90.0-100.0); PCO2 ABG 27.6 mmHg (35.0-45.0); PO2 ABG 60.6 mmHg (80.0-100.0); PO2 FiO2 Ratio Arterial Blood 1.21 %; Total Hemoglobin 17.3 g/dL (12.0-18.0)
[2024-04-28 16:53] LABS: Modified Allen's Test Pass; Site Drawn RIGHT RADIAL; pH ABG 7.522 (7.350-7.450)
[2024-04-28 16:54] LABS: Device VENTURI MASK
[2024-04-28 17:34] LABS: Ammonia 123 umol/L (9-30)
[2024-04-28 17:36] LABS: Procalcitonin 0.1 ng/mL
[2024-04-28 18:03] LABS: MRSA (PCR) NOT DETECTED (NOT DETECTE)
[2024-04-28 18:36] LABS: Glucose Point of Care 145 mg/dl (65-105)
--- NOTE | 2024-04-28 18:36 | P.PNCROSS_ITS ---
Event Note Event Note Event Note: Initial concern that patient may need intubation. Was satting 89% on a Venturi Mask. After discussion with cement boat and barge loader human resources communications manager, proceeded with Airvo which was placed around 1700. Reasessment of patient's O2 sat at 1730 shows patient has been maintaining sat around 92-93%. Plan for NG placement w/KUB for placement confirmation. Will transition Lactulose enema BID to lactulose per NG Q8H. Continue to monitor neurological status and O2 sat closely. In the event patient does need airway, cement boat and barge loader is aware and okay with transfer. Discussed with the patient's primary team and in agreeance. Reassment at 20:00: patient continues to maintain sat of 94%. Patient remains obtunded and only responsive to pain. Shallow respirations but normal respiratory rate. No tachycardia. Orders placed. Nursing staff to call if issues arise. Critical Care Time: I personally spent 35 minutes of direct patient care including (but not limited to) the physical examination, decision-making, bedside evaluation, review of medical records, review of labs and imaging, discussion with nursing staff and other providers for collaborative, critical care management of this patient.
[2024-04-28] MEDS: levoFLOXacin 750 MG/D5W 150 ML 750 MG/150 ML BAG 100 MG IVPB (18:52)
[2024-04-28] MEDS: VANCOMYCIN 1,750 MG/NS 500 ML 1,750 MG/500 ML BAG 250 MG IVPB (18:52)
[2024-04-28] MEDS: LACTULOSE 20 GM/30 ML UDC PO (21:33)
[2024-04-28] MEDS: rifAXIMin 550 MG TABLET PO (21:33)
[2024-04-29] VITALS (32 sets, daily range): BP systolic 112–146; BP diastolic 56–87; PULSE 20–107; RESP 18–92; TEMP 36.8–37.9; O2SAT 92–100
[2024-04-29] MEDS: ALBUTEROL SULFATE NEB 2.5 MG/3 ML INH 5 MG INHALATION ×4 (02:54→21:00)
[2024-04-29] MEDS: IPRATROPIUM BR 0.02% INH SOLN 0.5 MG/2.5 ML VIAL INHALATION ×4 (02:55→21:00)
[2024-04-29] MEDS: LACTATED RINGERS 1,000 ML 75 ML IV CONT ×2 (03:25→17:06)
[2024-04-29 04:43] LABS: Ammonia 44 umol/L (9-30)
[2024-04-29 04:49] LABS: Basophils Absolute Auto 0.1 K/mm3 (0.0-0.1); Basophils Percent Auto 0.8 % (0.2-1.2); Eosinophils Absolute Auto 0.1 K/mm3 (0-0.3); Eosinophils Percent Auto 0.5 % (0-4.4); Hemoglobin 15.7 g/dL (12.0-15.0); Immature Granulocyte Absolute 0.06 K/mm3 (0.00-0.031); Immature Granulocyte Percent A 0.5 % (0-0.5); Lymphocytes Absolute Auto 1.65 K/mm3 (0.9-3.2); Lymphocytes Percent Auto 13.8 % (18.3-44.2); Mean Corpuscular HGB Conc 34.9 g/dl (32-36); Mean Corpuscular Hemoglobin 34.2 pg (26-34); Mean Platelet Volume 10.5 fl (7.4-10.4); Monocytes Absolute Auto 1.7 K/mm3 (0.1-0.6); Monocytes Percent Auto 13.8 % (2.6-8.5); Neutrophils Absolute Auto 8.4 K/mm3 (1.3-6.7); Neutrophils Percent Auto 70.6 % (45.5-73.1); Platelet Count Result 141 k/mm3 (150-375); Red Blood Count 4.59 M/mm3 (4.2-5.4); Red Cell Distribution Width 13.4 % (11.5-14.5); White Blood Count 11.9 K/mm3 (4.5-10.0)
[2024-04-29 04:58] LABS: Alanine Aminotransferase 36 U/L (6-35); Albumin Level 3.1 g/dL (3.5-5.1); Alkaline Phosphatase 129 U/L (38-126); Anion Gap 10 mmol/L (4-12); Aspartate Amino Transferase 70 U/L (14-36); Blood Urea Nitrogen 10 mg/dL (7-17); Calcium 8.6 mg/dL (8.4-10.2); Carbon Dioxide 19 mmol/L (22-30); Chloride 107 mmol/L (98-107); Estimated CRCL calculation 96 ml/min; Estimated Glomerular Filt Rate > 60; Glucose 121 mg/dL (65-110); Potassium 3.5 mmol/L (3.4-5.0); Sodium 136 mmol/L (137-145)
[2024-04-29 06:52] LABS: Glucose Point of Care 142 mg/dl (65-105)
[2024-04-29] MEDS: LACTULOSE 20 GM/30 ML UDC PO ×3 (06:52→21:38)
[2024-04-29] MEDS: VANCOMYCIN 1,250 MG/NS 250 ML 1,250 MG/250 ML BAG 166.67 MG IVPB (06:53)
[2024-04-29] MEDS: THIAMINE 500 MG/NS 100 ML 500 MG/100 ML BAG 200 MG IVPB ×3 (06:53→21:37)
--- NOTE | 2024-04-29 07:24 | P.PNIM_ITS ---
Progress Note: A&P Assessment and Plan (1) Altered mental status: Code(s): R41.82 - Altered mental status, unspecified Status: Acute Assessment and Plan: Likely multifactorial from hepatic encephalopathy, hypoxia, and UTI. See plan below UDS: Positive for benzos EtOH < 10 Ammonia 64 >> 79 >> 173 >> 43, started on lactulose TID and rifaximin BID Head CT: No acute intracranial process C spine CT: No acute fracture or traumatic malalignment in the c spine CXR: Mild interstitial edema. Streaky subsegmental bibasilar atelectasis/consolidation. Possible trace bilateral effusions. Chest CTA: Limited evaluation of the segmental and subsegmental pulmonary arteries. No central pulmonary embolus detected. Mild interstitial pulmonary edema. No pleural effusion is detected. Cirrhosis with portal hypertension. Chronic pancreatitis with marked pancreatic duct dilation. Correlate with pancreatic labs. Abdomen US: Cirrhosis with portal HTN. Cholelithiasis. Pancreatic duct dilation. 04/28: Likely 2/2 elevated ammonia level, lactulose enema BID ordered unable to give rifaximin given mental status Head CT unremarkable CXR 04/28: Decreased lung volumes with mild bibasilar opacities most likely atelectasis with differential including the mild pulmonary edema or pneumonia. ABG: pH 7.518, pCO2 25, pO2 55.6, HCO3 19.9 Neuro checks q4H 04/29: Patient AOx1 (self) following some commands. She has been NPO for confusion, will consult chemical dependency counselor for tube feeds given that she now has NG tube in place (2) Acute hypoxic respiratory failure: Code(s): J96.01 - Acute respiratory failure with hypoxia Status: Acute Assessment and Plan: Per chart review patient was noted to have hypoxia with an oxygen saturation of 88% by EMS were applied nasal cannula. Room air at baseline, requiring 4L NC at time of admission. CXR: Mild interstitial edema. Streaky subsegmental bibasilar atelectasis/consolidation. Possible trace bilateral effusions. Chest CTA: Limited evaluation of the segmental and subsegmental pulmonary arteries. No central pulmonary embolus detected. Mild interstitial pulmonary edema. No pleural effusion is detected. Cirrhosis with portal hypertension. Chronic pancreatitis with marked pancreatic duct dilation. Correlate with pancreatic labs. - Viral PCR: negative for Flu/COVID/RSV - Echo 12/11: LVEF 67% with grade I diastolic dysfunction - Lipase < 10, pleural effusion likely not secondary to pancreatitis - Monitor vital signs, I&Os, neuro status and patient is a fall risk - Follow WBC, serum electrolytes, temperature curves and cultures CXR 04/28: Decreased lung volumes with mild bibasilar opacities most likely atelectasis with differential including the mild pulmonary edema or pneumonia. Had a temp of 99.8. Due to increased O2 need and confusion will start HAP treatment with vanc and levaquin. MRSA swab ordered. ABG: pH 7.518, pCO2 25, pO2 55.6, HCO3 19.9 04/28: Dr. Grande evaluated patient this am to reevaluate for possible intubation requirement given the increase in oxygen on airvo. Patient was well suctioned and her saturations improved. She remains stable on airvo at this time, not requiring intubation. Continue to monitor. (3) Hospital-acquired pneumonia: Code(s): J18.9 - Pneumonia, unspecified organism; Y95 - Nosocomial condition Status: Acute Assessment and Plan: She remains alert only to pain with poor respiratory drive. She had a temp of 99.8. Due to increased O2 need and confusion will start HAP treatment with vanc and levaquin. CXR 04/28: Decreased lung volumes with mild bibasilar opacities most likely atelectasis with differential including the mild pulmonary edema or pneumonia. - started on HAP tx: vanc and levaquin started on 04/28, vanc DC as MRSA is negative - Viral PCR: negative for Flu/COVID/RSV - MRSA negative -Monitor vital signs, I&Os, neuro status and patient is a fall risk - Follow WBC, serum electrolytes, temperature curves and cultures (4) Hepatic encephalopathy: Code(s): K76.82 - Hepatic encephalopathy Status: Acute Assessment and Plan: Patient's ammonia level is elevated at 64 on admission Ammonia 64 >> 79 >> 173 >> 43, NG placed to receive lactulose TID and rifaximin BID GI consulted Monitor (5) Transaminitis: Code(s): R74.01 - Elevation of levels of liver transaminase levels Status: Acute Assessment and Plan: LFTs on admission: Bili 3.2, AST 65, ALT 41, alk phos 142 LFTs on am labs: bili 4, AST 70, ALT 36, Alk phos 129 Abdomen US: Cirrhosis with portal HTN. Cholelithiasis. Pancreatic duct dilation. Hepatitis panel ordered Monitor (6) UTI (urinary tract infection): Code(s): N39.0 - Urinary tract infection, site not specified Status: Acute Assessment and Plan: - encephalopathy likely multifactorial - UA: cloudy appearance with 1+ protein, trace ketones, positive nitrates, 2+ bili, 4.0 urobilinogen, 2+ leukocytes, 3-5 RBC, 51-100 WBC, 4+ bacteria, occasional squamous cells - UC obtained on 04/25: final - E coli with resistance to Augmentin, cefazolin, and Bactrim - No previous micro to be reviewed - started on Rocephin started on 04/25, now on levaquin for cocurrent HAP coverage - IV maintenance fluids (7) Thrombocytopenia: Code(s): D69.6 - Thrombocytopenia, unspecified Status: Acute Assessment and Plan: PLT 145 on admission. - PLT 141 on am labs - No signs of active bleeding - Monitor (8) Polycythemia: Code(s): D75.1 - Secondary polycythemia Status: Acute Assessment and Plan: The patient does have polycythemia but with given her clubbing noted on nail beds I suspect patient likely has underlying chronic lung disease. Polycythemia is likely due to volume depletion and possible chronic hypoxia. The patient was relatively new patient at the [place] [facility] and they did not know much of the patient's history. Will place patient on scheduled nebulizer treatments and continue supplemental oxygen as needed. 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 Unknown prior withdrawal symptoms. CIWA protocol Thiamine IV Time Spent With Patient Time with patient: 25 - 35 minutes Subjective Date/time seen: 04/29/24 07:24 Interval history: 49-year-old female with past medical history of alcohol cirrhosis, chronic pancreatitis, and psychiatric disorder who presented to the ER from [facility] due to low oxygen saturations an altered mental status. Patient is lying in bed. She is now alert to self and following some commands such as opening her eyes and squeezing your hands. Her ammonia level has improved. She had slight bloody drainage from her mouth, unsure if this is irritation from suctioning or possible varices. Will consult GI. H/H remains stable. She has a NG tube in place. Will consult nutrition for tube feeds. Review of Systems Review of Systems: ROS unobtainable: Yes unobtainable due to mental status Exam Narrative: AF HR 97 RR 24 SpO2 92 60L Airvo BP 145/73 General: female in no acute respiratory distress who is ill appearing, lying semi recumbent in bed. HEENT: Normocephalic. Atraumatic. Pupils equal round reactive to light. Sclera clear and anicteric. NG tube in place. Chest: Lungs are diminished to auscultation bilaterally. No wheezes or crackles. [place]/bloody sputum with suction. CV: Heart was regular rate and rhythm. S1-S2. No murmurs, gallops, or rubs. Abd: Abdomen was soft. Nontender. Nondistended. Positive bowel sounds. No organomegaly or masses. Ext: No clubbing, cyanosis, or edema. 2+ DP pulses bilaterally. Neuro: Patient is alert to self, following some commands. Objective Data Vital Signs Vital Signs: Vital Signs - 24 hr 04/28/24 07:38 04/28/24 07:55 04/28/24 08:00 Temperature Pulse Rate 86 84 Respiratory Rate 20 20 Blood Pressure Pulse Oximetry 93 Oxygen Delivery Nasal Cannula Oxygen Flow Rate 1 Fraction of Inspired Oxygen 04/28/24 08:00 04/28/24 12:00 04/28/24 12:50 Temperature Pulse Rate 95 92 Respiratory Rate Blood Pressure Pulse Oximetry 90 Oxygen Delivery Nasal Cannula Oxygen Flow Rate 3 Fraction of Inspired Oxygen 04/28/24 13:00 04/28/24 14:00 04/28/24 14:16 Temperature 99.8 F H Pulse Rate 88 92 89 Respiratory Rate 22 H 20 Blood Pressure 145/80 H Pulse Oximetry 95 Oxygen Delivery Oxygen Flow Rate Fraction of Inspired Oxygen 04/28/24 14:35 04/28/24 14:40 04/28/24 15:30 Temperature Pulse Rate 94 Respiratory Rate 20 Blood Pressure Pulse Oximetry 87 L 92 Oxygen Delivery Nasal Cannula Venturi Mask Oxygen Flow Rate 3 15 Fraction of Inspired Oxygen 50 04/28/24 16:00 04/28/24 16:00 04/28/24 16:00 Temperature 98.5 F Pulse Rate 92 87 Respiratory Rate 18 Blood Pressure 145/78 H Pulse Oximetry 90 90 Oxygen Delivery Venturi Mask Oxygen Flow Rate 15 Fraction of Inspired Oxygen 50 04/28/24 17:30 04/28/24 18:00 04/28/24 20:00 Temperature 97.7 F Pulse Rate 86 Respiratory Rate 24 H Blood Pressure 127/70 Pulse Oximetry 91 92 96 Oxygen Delivery High Flow Nasal Cannula High Flow Therapy with Na Oxygen Flow Rate 60 60 Fraction of Inspired Oxygen 65 65 04/28/24 20:00 04/28/24 20:00 04/28/24 20:26 Temperature Pulse Rate 87 90 87 Respiratory Rate 20 20 Blood Pressure Pulse Oximetry 94 94 Oxygen Delivery High Flow Therapy with Na High Flow Therapy with Na Oxygen Flow Rate 60 60 Fraction of Inspired Oxygen 69 69 04/28/24 20:31 04/28/24 22:00 04/28/24 23:57 Temperature 99.2 F Pulse Rate 87 97 97 Respiratory Rate 20 24 H Blood Pressure 132/78 Pulse Oximetry 97 Oxygen Delivery Oxygen Flow Rate Fraction of Inspired Oxygen 04/29/24 00:00 04/29/24 00:00 04/29/24 02:00 Temperature Pulse Rate 97 94 91 Respiratory Rate 24 H Blood Pressure Pulse Oximetry 97 Oxygen Delivery High Flow Therapy with Na Oxygen Flow Rate 60 Fraction of Inspired Oxygen 69 04/29/24 02:55 04/29/24 02:59 04/29/24 04:00 Temperature 99.4 F Pulse Rate 99 98 100 Respiratory Rate 22 H 22 H 20 Blood Pressure 134/87 Pulse Oximetry 95 100 Oxygen Delivery High Flow Therapy with Na Oxygen Flow Rate 60 Fraction of Inspired Oxygen 68 04/29/24 04:00 04/29/24 04:00 04/29/24 06:00 Temperature Pulse Rate 100 100 104 H Respiratory Rate 20 Blood Pressure Pulse Oximetry 100 Oxygen Delivery High Flow Therapy with Na Oxygen Flow Rate 60 Fraction of Inspired Oxygen 68 04/29/24 07:18 04/29/24 07:18 Temperature Pulse Rate 100 Respiratory Rate 24 H Blood Pressure Pulse Oximetry 97 Oxygen Delivery High Flow Therapy with Na Oxygen Flow Rate 60 Fraction of Inspired Oxygen 92 Intake/Output Intake/Output: Intake & Output 04/26/24 04/27/24 04/28/24 04/29/24 23:59 23:59 23:59 23:59 Intake Total 3090 2120 2320.0 100 Output Total 1500 3351 3200 Balance 1590 -1231 -880.0 100 Meds/Results Medications: Active Medications Generic Name Dose Route Start Last Admin Trade Name Freq PRN Reason Stop Dose Admin Albuterol 5 mg 04/26/24 08:00 04/29/24 07:16 Albuterol Sulfate Neb 2.5 Mg/3 Ml Inh INHALATION 5 mg Q6HRT MICHOACANO Administration Dextrose 12.5 gm 04/26/24 02:36 Dextrose 50% 25 Gm/50 Ml Syringe IV PUSH PRN PRN Hypoglycemia Protocol Glucagon 1 mg 04/26/24 02:36 Glucagon For Inj 1 Mg Vial IM PRN PRN Hypoglycemia Protocol Glucose 15 gm 04/26/24 02:36 Glucose Oral Gel 15 Gm Of Glucse In 37.5 Gm Tube PO PRN PRN Hypoglycemia Protocol Lactated Ringer's 1,000 mls @ 75 mls/hr 04/26/24 01:30 04/29/24 03:25 Lr - Lactated Ringers Iv IV CONT 75 mls/hr .[id number] MICHOACANO Administration Thiamine HCl 500 mg in 100 mls @ 200 mls/hr 04/26/24 02:25 04/29/24 06:53 IVPB 05/01/24 02:24 200 mls/hr Q8H MICHOACANO Administration Dextrose 1,000 mls @ 100 mls/hr 04/26/24 02:36 Dextrose 5% 1,000 Ml IVPB PRN PRN Hypoglycemia Protocol Levofloxacin/Dextrose 750 mg in 150 mls @ 100 mls/hr 04/28/24 17:00 04/28/24 18:52 Levaquin 750 Mg/D5w 150 Ml IVPB 100 mls/hr Q24H MICHOACANO Administration Vancomycin HCl 1,250 mg in 250 mls @ 166.667 mls/hr 04/29/24 06:00 04/29/24 06:53 Vancomycin 1,250 Mg/Ns 250 Ml IVPB 166.67 mls/hr Q12H MICHOACANO Administration Ibuprofen 400 mg 04/26/24 01:26 04/27/24 01:10 Ibuprofen 400 Mg Tablet PO 400 mg Q6H PRN Administration Mild Pain (1-3) or Fever Ipratropium [place] 0.5 mg 04/26/24 08:00 04/29/24 07:16 Ipratropium Br 0.02% Inh Soln 0.5 Mg/2.5 Ml Vial INHALATION 0.5 mg Q6HRT MICHOACANO Administration Lactulose 200 gm 04/28/24 21:00 04/28/24 21:04 Lactulose Enema 200 Gm/1,000 Ml Enema RECTAL Not Given Q12HR MICHOACANO Lactulose 20 gm 04/28/24 19:55 04/29/24 06:52 Lactulose 20 Gm/30 Ml Udc PO 20 gm Q8HR MICHOACANO Administration Ondansetron HCl 4 mg 04/26/24 01:26 Ondansetron Inj 4 Mg/2 Ml Vial IV PUSH Q4H PRN Nausea Perflutren Lipid Microsphere 0 ml 04/27/24 08:20 Perflutren Lipid Microspheres 1.5 Ml Vial Diluted To 10 Ml Total Volume IV PUSH 04/30/24 08:20 ONCE PRN adequate visualization Protocol Rifaximin 550 mg 04/28/24 09:00 04/28/24 21:33 Rifaximin 550 Mg Tablet PO 550 mg Q12HR MICHOACANO Administration Thiamine HCl 100 mg 04/29/24 09:00 Thiamine Hcl 200 Mg/2 Ml Vial IV PUSH DAILY [facility] Radiology Results: ITS Impressions Cervical Spine CT 04/25/24 19:55 IMPRESSION: No acute fracture or traumatic malalignment in the cervical spine. Abdomen Ultrasound 04/25/24 21:27 IMPRESSION: Cirrhosis with portal hypertension. Cholelithiasis. Pancreatic duct dilation. Chest/Abdomen/Pelvis CTA 04/25/24 21:32 IMPRESSION: Limited evaluation of the segmental and subsegmental pulmonary arteries. No central pulmonary embolus detected. Mild interstitial pulmonary edema. No pleural effusion is detected. Cirrhosis with portal hypertension. Chronic pancreatitis with marked pancreatic duct dilation. Correlate with pancreatic labs. Head CT 04/28/24 10:30 IMPRESSION: 1. Stable appearance of mild age-related changes including mild diffuse volume loss and mild scattered white matter hypoattenuation consistent with chronic small vessel ischemic disease. No acute intracranial process. Chest X-Ray 04/28/24 10:43 IMPRESSION: 1. Decreased lung volumes with mild bibasilar opacities most likely atelectasis with differential including the mild pulmonary edema or pneumonia. Abdomen X-Ray 04/28/24 20:22 IMPRESSION: 1. 11 mm nodule in left lung upper lobe suspicious for primary bronchogenic carcinoma. Noncontrast low-dose chest CT is recommended in 3 months. 2. Nasogastric tube tip in the distal stomach. Labs Labs: Laboratory Results - last 24 hr 04/27/24 04/28/24 04/28/24 21:26 06:44 08:06 WBC 6.9 RBC 4.61 Hgb 16.1 H Hct 45.3 MCV 98.3 MCH 34.9 H MCHC 35.5 RDW 13.6 Plt Count 135 L MPV 10.9 H Immature Gran % (Auto) Neut % (Auto) Lymph % (Auto) [place] % (Auto) Eos % (Auto) Baso % (Auto) Lymph # (Auto) [place] # (Auto) Eos # (Auto) Baso # (Auto) Abs Immat Gran (auto) Absolute Neuts (auto) Absolute Nucleated RBC Nucleated RBC % % Immature Plt Fraction 3.4 Puncture Site ABG pH ABG pCO2 ABG pO2 ABG PO2/FiO2 Ratio ABG HCO3 ABG O2 Saturation ABG O2 Content ABG Base Excess A-a Gradient Oxyhemoglobin Total Hemoglobin O2 Delivery Device O2 Liters/Min FiO2 Sodium 136 L Potassium 3.8 Chloride 109 H Carbon Dioxide 22 Anion Gap 5 BUN 9 Creatinine 0.50 L Estim Creat Clear Calc 96 Estimated GFR > 60 Glucose 107 POC Capillary Glucose 123 H 126 H Calcium 8.9 Total Bilirubin AST ALT Alkaline Phosphatase Ammonia Total Protein Albumin Procalcitonin Nasal MRSA (PCR) Hepatitis A IgM Ab Negative Hep Bs Antigen Negative Hep B Core IgM Ab Negative Hepatitis C Ab Screen Negative 04/28/24 04/28/24 04/28/24 09:55 11:35 16:40 WBC RBC Hgb Hct MCV MCH MCHC RDW Plt Count MPV Immature Gran % (Auto) Neut % (Auto) Lymph % (Auto) [place] % (Auto) Eos % (Auto) Baso % (Auto) Lymph # (Auto) [place] # (Auto) Eos # (Auto) Baso # (Auto) Abs Immat Gran (auto) Absolute Neuts (auto) Absolute Nucleated RBC Nucleated RBC % % Immature Plt Fraction Puncture Site Right radial ABG pH 7.518 H* ABG pCO2 25.0 L ABG pO2 55.6 L ABG PO2/FiO2 Ratio 2.32 ABG HCO3 19.9 L ABG O2 Saturation 92.3 L ABG O2 Content 21.2 ABG Base Excess -0.9 A-a Gradient 85.8 Oxyhemoglobin 89.3 L Total Hemoglobin 16.9 O2 Delivery Device Nasal cannula O2 Liters/Min 1.0 FiO2 24 Sodium Potassium Chloride Carbon Dioxide Anion Gap BUN Creatinine Estim Creat Clear Calc Estimated GFR Glucose POC Capillary Glucose 123 H Calcium Total Bilirubin AST ALT Alkaline Phosphatase Ammonia 123 H Total Protein Albumin Procalcitonin 0.1 Nasal MRSA (PCR) Hepatitis A IgM Ab Hep Bs Antigen Hep B Core IgM Ab Hepatitis C Ab Screen 04/28/24 04/28/24 04/28/24 16:44 16:49 18:20 WBC RBC Hgb Hct MCV MCH MCHC RDW Plt Count MPV Immature Gran % (Auto) Neut % (Auto) Lymph % (Auto) [place] % (Auto) Eos % (Auto) Baso % (Auto) Lymph # (Auto) [place] # (Auto) Eos # (Auto) Baso # (Auto) Abs Immat Gran (auto) Absolute Neuts (auto) Absolute Nucleated RBC Nucleated RBC % % Immature Plt Fraction Puncture Site Right radial ABG pH 7.522 H* ABG pCO2 27.6 L ABG pO2 60.6 L ABG PO2/FiO2 Ratio 1.21 ABG HCO3 22.1 ABG O2 Saturation 93.9 L ABG O2 Content 22.3 H ABG Base Excess 1.0 A-a Gradient 264.9 Oxyhemoglobin 91.8 Total Hemoglobin 17.3 O2 Delivery Device Venturi mask O2 Liters/Min 15.0 FiO2 50 Sodium Potassium Chloride Carbon Dioxide Anion Gap BUN Creatinine Estim Creat Clear Calc Estimated GFR Glucose POC Capillary Glucose 145 H Calcium Total Bilirubin AST ALT Alkaline Phosphatase Ammonia Total Protein Albumin Procalcitonin Nasal MRSA (PCR) Not detected Hepatitis A IgM Ab Hep Bs Antigen Hep B Core IgM Ab Hepatitis C Ab Screen 04/28/24 04/29/24 20:01 04:29 WBC 11.9 H RBC 4.59 Hgb 15.7 H Hct 45.0 MCV 98.0 MCH 34.2 H MCHC 34.9 RDW 13.4 Plt Count 141 L MPV 10.5 H Immature Gran % (Auto) 0.5 Neut % (Auto) 70.6 Lymph % (Auto) 13.8 L [place] % (Auto) 13.8 H Eos % (Auto) 0.5 Baso % (Auto) 0.8 Lymph # (Auto) 1.65 [place] # (Auto) 1.7 H Eos # (Auto) 0.1 Baso # (Auto) 0.1 Abs Immat Gran (auto) 0.06 H Absolute Neuts (auto) 8.4 H Absolute Nucleated RBC 0.000 Nucleated RBC % 0.0 % Immature Plt Fraction Puncture Site ABG pH ABG pCO2 ABG pO2 ABG PO2/FiO2 Ratio ABG HCO3 ABG O2 Saturation ABG O2 Content ABG Base Excess A-a Gradient Oxyhemoglobin Total Hemoglobin O2 Delivery Device O2 Liters/Min FiO2 Sodium 136 L Potassium 3.5 Chloride 107 Carbon Dioxide 19 L Anion Gap 10 BUN 10 Creatinine 0.50 L Estim Creat Clear Calc 96 Estimated GFR > 60 Glucose 121 H POC Capillary Glucose 142 H Calcium 8.6 Total Bilirubin 4.0 H AST 70 H ALT 36 H Alkaline Phosphatase 129 H Ammonia 44 H Total Protein 7.0 Albumin 3.1 L Procalcitonin Nasal MRSA (PCR) Hepatitis A IgM Ab Hep Bs Antigen Hep B Core IgM Ab Hepatitis C Ab Screen Quality VTE Prophylaxis VTE prophylaxis: mechanical ordered
[2024-04-29] MEDS: THIAMINE HCL 200 MG/2 ML VIAL 100 MG IV PUSH (08:18)
[2024-04-29] MEDS: rifAXIMin 550 MG TABLET FEED TUBE ×2 (08:19→21:37)
--- NOTE | 2024-04-29 08:52 | PC.NURSE ---
KATIA Brooks updated that pt is now on 60L 94% AirVo.O2 sat 92%. ANNEMARIE Painting reports pt desated to 97% on 60L 65% around 0645. At that time, oxygen was increased to 94% and patient was suctioned. Continues to have difficulty clearing secretions.
[2024-04-29 12:07] LABS: Glucose Point of Care 113 mg/dl (65-105)
--- NOTE | 2024-04-29 15:38 | PCDIET ---
TUBE FEEDING CONSULT: Pt with NG, day 2 of NPO for altered mental status, decreased consciousness. Tube feeding ordered. Jevity 1.5 @ 20 ml/h with goal of 50 ml/h (1650 kcal, 70 g protein, 836 ml free water.) Flush 100 ml q 4 hours for total 1436 ml free water/day. Start at 20 ml/h and advance by 10 ml q 4 hours until goal is reached.
--- NOTE | 2024-04-29 15:48 | PC.NURSE ---
Resting in bed. O2 sat 85% on Airvo at 60L and 100%. Pt sat up and suctioned with no improvement. ANNEMARIE Ramsey Director at bedside. RT and CAROLYN Garrido notified. Pt transferred to ICU for intubation.
--- NOTE | 2024-04-29 15:49 | ECG_ITS ---
Test Date: 2024-04-29 16:29:47 Measurements Intervals [place] Rate: 88 P: 27 MI: 151 QRS: 53 QRSD: 97 T: 9 QT: 393 QTc: 477 Interpretive Statements SINUS RHYTHM LOW QRS VOLTAGE IN EXTREMITY LEADS [QRS DEFLECTION < 0.5 mV IN LIMB LEADS] Compared to ECG 04/25/2024 19:05:45 Myocardial infarct finding no longer present Electronically Signed On 04-30-2024 12:59:51 AUDITING CONTROL CLERK by Yane Ahumada M.D.
--- NOTE | 2024-04-29 15:54 | PM.CCN ---
Critical Care Event Note Summary Code activated: No Narrative: This case had a high probability of a clinically significant, sudden, or life threatening deterioration of this patient's condition which required my full and direct attention, intervention and personal management. Bedside nursing staff contacted this provider due to recurrent hypoxia despite Airvo placement and significantly improved ammonia (173 -> 123 -> 44). Patient remains responsive to pain only, coarse lung sounds, and O2 saturation was at 90%. Patient was successfully intubated with rocuronium and etomidate. Tolerated well, see procedure note. CXR for confirmation. Now maintaining sat at 94-95%. Will repeat KUB to confirm no shift in NG placement, slight shifting during procedure. Reviewed current antibiotic regimen, patient was on ceftriaxone for UTI/pneumonia. Completed course for UTI. Will transition to cefepime for continued coverage of pneumonia, did have a recent admission to [facility]. Will add atypical coverage with doxycycline, most recent EKG showed QT prolongation. Will add vancomycin back given patient's critical nature. MRSA PCR was negative on 04/28. Sputum culture ordered if obtainable. Will proceed with Versed and fentanyl for sedation, not good candidate for post fall given QT prolongation. ABG post intubation ordered. Add daily PPI. C diff ordered. Venetian Blind Machine Operator, Harjinder, notified of case. Agreeable to transfer to the ICU and consultation. Agrees with current plan. Rounding provider, Courtney MONTALVO notified of change in condition. Post intubation exam: Critically ill female recumbent in bed. Pupils are round, 4 mm bilaterally, and minimally reactive to light. Lung sounds coarse bilaterally in all lung zabala, moderate work of breathing, +tachypnea. Diffuse petechiae. Abdomen is soft, nondistended, and normoactive BS in all quadrants. Diffuse spider web petechiae. 2x2 cm macule to left huynh, no head or drainage. FMS in place with yellow/CD output. Mirza in place with tea-colored output, no clots or sediment. Critical care time: 30 - 74 mins
[2024-04-29] MEDS: ROCURONIUM BROMIDE 50 MG/5 ML VIAL IV PUSH (15:56)
[2024-04-29] MEDS: ETOMIDATE 20 MG/10 ML AMPUL IV PUSH (15:56)
[2024-04-29] MEDS: MIDAZOLAM 100MG/NS 100ML(*CRX) 100 MG/100 ML BAG IV CONT (16:30)
[2024-04-29] MEDS: FENTANYL 2,500MCG/NS250ML(*CRX 2,500 MCG/250 ML BAG IV CONT (16:34)
--- NOTE | 2024-04-29 16:36 | WPDPROCEDUR ---
Procedures Intubation Intubation Date: 04/29/24 Intubation Time: 15:56 Consent: Patient obtunded. No emergency contact listed. Considered emergency consent. A pre-procedural Time-Out was completed immediately before starting the procedure and confirmed: Patient Identification, Site, Procedure, Patient Position and the Availability of Requisite Equipment: Yes Sedative: etomidate Mg given: 20 Paralytic: rocuronium Mg given: 50 Laryngoscope: fiber optic video scope ET tube size: 7.5 Tube secured depth (cm): 25 Tube secured location: lips Tube placement confirmation: visualized tube passing through cords, equal breath sounds bilaterally, no breath sounds over epigastrium and confirmation by capnometry Patient tolerated procedure: well Intubation complications: none Additional comments: Intubation took place in ICU 1.
--- NOTE | 2024-04-29 16:38 | PC.NURSE ---
This patient, Amee Oconnell, was transferred to ICU 1 on 04/29/24 at 1543. Personal belongings sent with patient. Report given to ANNEMARIE Diaz. Appropriate documentation sent with patient.
[2024-04-29 16:48] LABS: Alveolar/Arterial O2 Gradient 605.8 mmHg; Base Excess ABG -2.4 mEq/l (+/-2.0); Carboxyhemoglobin 0.5 % THb (0-2.0); Fractional Inspired Oxygen 100 %; HCO3 ABG 20.8 mEq/l (22.0-26.0); Methemoglobin ABG 0.1 %THb (0-1.5); Oxygen Content ABG 21.8 %vol (16.0-22.0); Oxygen Saturation ABG 95.6 % (95.0-100.0); Oxyhemoglobin 94.1 % THb (90.0-100.0); PO2 ABG 75.2 mmHg (80.0-100.0); PO2 FiO2 Ratio Arterial Blood 0.75 %; Reduced Hemoglobin 5.3 %THb (0-5.0); Total Hemoglobin 16.5 g/dL (12.0-18.0)
[2024-04-29 16:50] LABS: Arterial Blood Gas PEEP 8 cmH2O; Arterial Blood Gas Vent Mode CMV; Arterial Blood Gas Ventilator rate 20 /MIN; Device VENTILATOR; Site Drawn RIGHT BRACHIAL
[2024-04-29 16:51] LABS: Arterial Blood Gas Tidal Volume 400 ml
[2024-04-29] MEDS: DOXYCYCLINE 100 MG/NS 100 ML 100 MG/100 ML BAG IVPB (17:06)
[2024-04-29 18:22] LABS: Toxigenic C. Diff NEGATIVE (NEGATIVE)
[2024-04-29] MEDS: VANCOMYCIN 1,500 MG/NS 500 ML 1,500 MG/500 ML BAG 250 MG IVPB (18:36)
[2024-04-29 19:09] LABS: Glucose Point of Care 123 mg/dl (65-105)
[2024-04-29] MEDS: CEFEPIME 2 GM/NS 50 ML 2 GM/50 ML BAG IVPB (19:57)
[2024-04-30] VITALS (58 sets, daily range): BP systolic 80–122; BP diastolic 40–69; PULSE 61–154; RESP 9–24; TEMP 37.2–38.2; O2SAT 91–99
[2024-04-30 00:56] LABS: Glucose Point of Care 97 mg/dl (65-105)
[2024-04-30] MEDS: ALBUTEROL SULFATE NEB 2.5 MG/3 ML INH 5 MG INHALATION ×2 (02:09→07:29)
[2024-04-30] MEDS: IPRATROPIUM BR 0.02% INH SOLN 0.5 MG/2.5 ML VIAL INHALATION ×2 (02:09→07:29)
[2024-04-30 04:16] LABS: Basophils Absolute Auto 0.1 K/mm3 (0.0-0.1); Basophils Percent Auto 0.6 % (0.2-1.2); Eosinophils Absolute Auto 0.2 K/mm3 (0-0.3); Eosinophils Percent Auto 1.1 % (0-4.4); Hematocrit 45.9 % (37.0-47.0); Hemoglobin 16.2 g/dL (12.0-15.0); Immature Granulocyte Absolute 0.13 K/mm3 (0.00-0.031); Immature Granulocyte Percent A 0.7 % (0-0.5); Immature Platelet Fraction Pct 4.9 % (0.9-11.2); Lymphocytes Absolute Auto 1.66 K/mm3 (0.9-3.2); Lymphocytes Percent Auto 9.4 % (18.3-44.2); Mean Corpuscular HGB Conc 35.3 g/dl (32-36); Mean Corpuscular Hemoglobin 35.1 pg (26-34); Mean Corpuscular Volume 99.4 fl (80-100); Mean Platelet Volume 10.7 fl (7.4-10.4); Monocytes Absolute Auto 1.8 K/mm3 (0.1-0.6); Monocytes Percent Auto 10.3 % (2.6-8.5); Neutrophils Absolute Auto 13.8 K/mm3 (1.3-6.7); Neutrophils Percent Auto 77.9 % (45.5-73.1); Platelet Count Result 114 k/mm3 (150-375); Red Blood Count 4.62 M/mm3 (4.2-5.4); Red Cell Distribution Width 13.6 % (11.5-14.5); White Blood Count 17.7 K/mm3 (4.5-10.0)
[2024-04-30] MEDS: CEFEPIME 2 GM/NS 50 ML 2 GM/50 ML BAG IVPB ×3 (04:17→20:24)
[2024-04-30 04:25] LABS: INR 1.8; Prothrombin Time 20.8 Seconds (11.1-14.7)
[2024-04-30 04:26] LABS: Partial Thromboplastin Time 40.6 Seconds (22.3-36.8)
[2024-04-30 04:32] LABS: Alanine Aminotransferase 32 U/L (6-35); Alkaline Phosphatase 134 U/L (38-126); Anion Gap 4 mmol/L (4-12); Aspartate Amino Transferase 60 U/L (14-36); Blood Urea Nitrogen 12 mg/dL (7-17); Calcium 8.4 mg/dL (8.4-10.2); Carbon Dioxide 21 mmol/L (22-30); Chloride 108 mmol/L (98-107); Estimated CRCL calculation 96 ml/min; Estimated Glomerular Filt Rate > 60; Glucose 100 mg/dL (65-110); Potassium 3.4 mmol/L (3.4-5.0); Sodium 133 mmol/L (137-145)
[2024-04-30 04:33] LABS: Ammonia 46 umol/L (9-30)
[2024-04-30] MEDS: DOXYCYCLINE 100 MG/NS 100 ML 100 MG/100 ML BAG IVPB ×2 (04:56→16:06)
[2024-04-30] MEDS: THIAMINE 500 MG/NS 100 ML 500 MG/100 ML BAG 200 MG IVPB ×3 (05:05→20:44)
[2024-04-30] MEDS: LACTULOSE 20 GM/30 ML UDC PO ×3 (05:07→20:26)
[2024-04-30 05:10] LABS: Alveolar/Arterial O2 Gradient 451.5 mmHg; Base Excess ABG -3.3 mEq/l (+/-2.0); Carboxyhemoglobin 0.6 % THb (0-2.0); Fractional Inspired Oxygen 80 %; HCO3 ABG 20.8 mEq/l (22.0-26.0); Methemoglobin ABG 0.3 %THb (0-1.5); Oxygen Saturation ABG 96.2 % (95.0-100.0); PCO2 ABG 34.7 mmHg (35.0-45.0); PO2 ABG 82.5 mmHg (80.0-100.0); PO2 FiO2 Ratio Arterial Blood 1.03 %; Reduced Hemoglobin 4.1 %THb (0-5.0); Total Hemoglobin 15.7 g/dL (12.0-18.0); pH ABG 7.395 (7.350-7.450)
[2024-04-30 05:11] LABS: Device VENTILATOR; Modified Allen's Test Pass; Site Drawn LEFT RADIAL
[2024-04-30 05:12] LABS: Arterial Blood Gas PEEP 8 cmH2O; Arterial Blood Gas Tidal Volume 400 ml; Arterial Blood Gas Vent Mode CMV; Arterial Blood Gas Ventilator rate 20 /MIN
[2024-04-30 05:48] LABS: Magnesium 1.3 mg/dL (1.6-2.3)
[2024-04-30 05:53] LABS: Vancomycin Trough 8.7 ug/mL (10.0-20.0)
[2024-04-30] MEDS: VANCOMYCIN 1,500 MG/NS 500 ML 1,500 MG/500 ML BAG 250 MG IVPB ×3 (06:31→21:13)
[2024-04-30] MEDS: LIDOCAINE 1% PF INJ 5 ML VIAL INFILTRATE (08:00)
--- NOTE | 2024-04-30 08:54 | P.CONIN_ITS ---
Assessment and Plan Assessment and plan (1) Acute hypoxic respiratory failure: Code(s): J96.01 - Acute respiratory failure with hypoxia Status: Acute Assessment and Plan: Acute respiratory failure likely related to pneumonia -04/29: Intubated. As patient had Increased oxygen requirements, hypoxia with difficulty in breathing -CTA chest on 04/25/2024 was negative for PE -will start bronchodilators -continue cefepime, doxycycline vancomycin (04/29) -patient on CMV mode of ventilation, 80% FiO2 and peep of 8, low tidal volume strategy, lower tidal volume -chest x-ray reviewed, will withdrawal ETT 3 cm -sedated with fentanyl and Versed, maintain RASS of 0 to -2 -daily SBT and SAT (2) Cirrhosis: Code(s): K74.60 - Unspecified cirrhosis of liver Status: Acute Assessment and Plan: Patient with history of cirrhosis, likely alcoholic -given hyperbilirubinemia, marked pancreatic duct dilatation, elevated LFTs will have GI evaluate the patient 04/25/2024: CT chest/abdomen/pelvis IMPRESSION: Limited evaluation of the segmental and subsegmental pulmonary arteries. No central pulmonary embolus detected. Mild interstitial pulmonary edema. No pleural effusion is detected. Cirrhosis with portal hypertension. Chronic pancreatitis with marked pancreatic duct dilation. Correlate with pancreatic labs. (3) Hepatic encephalopathy: Code(s): K76.82 - Hepatic encephalopathy Status: Acute Assessment and Plan: Patient with hepatic encephalopathy with hyperbilirubinemia -on lactulose and rifaximin -ammonia levels are improving, continue to monitor (4) Hyperbilirubinemia: Code(s): E80.6 - Other disorders of bilirubin metabolism Status: Acute Assessment and Plan: Likely related to cirrhosis -hepatitis panel negative -right upper quadrant ultrasound showed cirrhosis with portal hypertension, cholelithiasis, pancreatic duct dilatation (5) Hospital-acquired pneumonia: Code(s): J18.9 - Pneumonia, unspecified organism; Y95 - Nosocomial condition Status: Acute Assessment and Plan: Patient with respiratory failure, increased oxygen requirements, CTA negative for PE, chest x-ray with possible pneumonia -continue antibiotics as above -04/28/2024: Preliminary blood cultures are negative x2 -04/30/2024: Sputum cultures obtained and pending (6) Thrombocytopenia: Code(s): D69.6 - Thrombocytopenia, unspecified Status: Acute Assessment and Plan: Thrombocytopenia likely related to chronic alcohol use, cirrhosis, acute critical care illness (7) UTI (urinary tract infection): Qualifiers: Hematuria presence: without hematuria Urinary tract infection type: a cute cystitis Qualified Code(s): N30.00 - Acute cystitis without hematuria Code(s): N39.0 - Urinary tract infection, site not specified Status: Acute Assessment and Plan: Please urine cultures growing E coli pansensitive -continue antibiotics as above Plan DVT prophylaxis: SCDs, no chemoprophylaxis due to thrombocytopenia Stress ulcer prophylaxis: Protonix Nutrition: Will start trickle tube feeds Code Status: Full code Critical Care Time Spent: 53 minutes Due to a high probability of clinically significant, life threatening deterioration, the patient required my highest level of preparedness to intervene emergently and I personally spent this critical care time directly and personally managing the patient. This critical care time included obtaining a history; examining the patient; pulse oximetry; ordering and review of studies; arranging urgent treatment with development of a management plan; evaluation of patient's response to treatment; frequent reassessment; and discussions with other providers. It was exclusive of separately billable procedures and treating other patients and teaching time. Please see Assessment and Plan section and the rest of the note for further information on patient assessment and treatment This dictation may have been done utilizing a voice recognition system. Attempts have been made to correct errors. However, there may be uncorrected grammatical, spelling, and recognitions errors present. Bread Jockey Consult Note Consult date: 04/30/24 Reason for consult: Acute respiratory failure, altered mental status, hyperammonemia, cirrhosis, hyperbilirubinemia HPI: Amee Oconnell is a 49 year old female past medical history of anxiety, chronic depression, chronic liver disease/cirrhosis, chronic pancreatitis, presented to the ED from [facility] on 04/25/2024 with complains of shortness of breath, lethargy, altered mental status, hypoxia. She was reportedly recently hospitalized at [facility] for psychiatric condition. Patient was initially placed on 4 L nasal cannula in the ED with improvement and O2 sats, started on Rocephin for UA suggesting of UTI. Patient was obtunded, blood sugars were adequate, ammonia levels was 64 on admission which had progressively increased to 173, patient was in the intermediate Unit, I recommended him setting NG tube and starting lactulose. Patient was on BiPAP in the intermediate Unit intermittently with high-flow therapy. WBC counts have been trending up during course of hospital stay, bilirubin is elevated to 5.0, mild elevation in LFTs. Ammonia is down to 46. 02/23: CTA chest/abdomen/pelvis: Limited evaluation of the segmental and subsegmental pulmonary arteries. No central pulmonary embolus detected. Mild interstitial pulmonary edema. No pleural effusion is detected.Cirrhosis with portal hypertension.Chronic pancreatitis with marked pancreatic duct dilation. Correlate with pancreatic labs.There is an 11 mm nodule in left lung upper lobe suspicious for primary bronchogenic carcinoma. Noncontrast low-dose chest CT is recommended in 3 months. 04/28: CT brain : Stable appearance of mild age-related changes including mild diffuse volume loss and mild scattered white matter hypoattenuation consistent with chronic small vessel ischemic disease. No acute intracranial process On 04/29/2024: Patient had increased oxygen requirements, had shortness of breath, hypoxia on Airvo, patient was brought to the ED and intubated placed on fentanyl and Versed infusion for sedation. Propofol was not used due to prolonged QT on EKG. Antibiotics were switched to cefepime, doxycycline and vancomycin. Patient was transferred to the ICU for further management 04/30/2024: Patient seen and examined the ICU, remains intubated on CMV mode of ventilation, peep of 8, 80% FiO2. Sedated with fentanyl and Versed infusion, does not open her eyes or follow simple commands, does withdraw to pain in all extremities. Urine output has been adequate, febrile to T-max of 100.8, hemodynamically stable. Ammonia levels elevated to 46 this morning Review of Systems 2 Review of Systems: ROS unobtainable: Yes unobtainable due to endotracheal tube, unobtainable due to medical condition and unobtainable due to mental status PMF Past Medical History Medical History Anxiety Chronic depression Chronic liver disease Chronic pancreatitis Diabetes mellitus Esophageal varices Panic attacks Suicidal ideation Surgical History Surgical History History of bilateral ligation of fallopian tubes History of gastrointestinal surgery For esophageal varices Family History Family History (Updated 04/26/24 @ 02:21 by Alicia Muniz DO) Other Unknown family medical history Social History Social History Social History: Homeless but per documentation going through a messy divorce Smoking status: Unknown if ever smoked Alcohol use details: Liquor Substance use: unknown Education: Trade/Vocational Certificate Spiritual care concerns: No Meds Home Medications and Allergies Allergies Allergy/AdvReac Type Severity Reaction Status Date / Time No Known Allergies Allergy Verified 04/25/24 19:50 Vital Signs Vital Signs - 24 hr 04/29/24 10:00 04/29/24 12:00 04/29/24 12:00 Temperature Pulse Rate 96 107 H Pulse Rate [Bilateral Pedal (Dorsalis Pedis) Palpation] Respiratory Rate Blood Pressure Pulse Oximetry 99 Oxygen Delivery High Flow Therapy with Na Oxygen Flow Rate 60 Fraction of Inspired Oxygen 85 04/29/24 12:00 04/29/24 12:40 04/29/24 12:43 Temperature 99.5 F Pulse Rate 105 H Pulse Rate [Bilateral Pedal (Dorsalis Pedis) Palpation] Respiratory Rate 24 H Blood Pressure 145/73 H Pulse Oximetry 98 97 96 Oxygen Delivery High Flow Therapy with Na High Flow Therapy with Na Oxygen Flow Rate 60 60 Fraction of Inspired Oxygen 64 64 04/29/24 13:57 04/29/24 14:00 04/29/24 14:01 Temperature Pulse Rate 97 96 Pulse Rate [Bilateral Pedal (Dorsalis Pedis) Palpation] Respiratory Rate 24 H Blood Pressure Pulse Oximetry 92 Oxygen Delivery High Flow Therapy with Na Oxygen Flow Rate 60 Fraction of Inspired Oxygen 64 04/29/24 14:12 04/29/24 16:00 04/29/24 16:00 Temperature 100.3 F H Pulse Rate 98 95 Pulse Rate [Bilateral Pedal (Dorsalis Pedis) Palpation] Respiratory Rate 24 H 32 H Blood Pressure 137/65 Pulse Oximetry 93 94 Oxygen Delivery Mechanical Ventilation Oxygen Flow Rate Fraction of Inspired Oxygen 04/29/24 16:00 04/29/24 16:17 04/29/24 16:30 Temperature Pulse Rate 76 88 80 Pulse Rate [Bilateral Pedal (Dorsalis Pedis) Palpation] Respiratory Rate 18 Blood Pressure Pulse Oximetry 96 Oxygen Delivery Mechanical Ventilation Oxygen Flow Rate Fraction of Inspired Oxygen 100 04/29/24 16:34 04/29/24 16:45 04/29/24 17:00 Temperature Pulse Rate 84 75 82 Pulse Rate [Bilateral Pedal (Dorsalis Pedis) Palpation] Respiratory Rate 18 20 22 H Blood Pressure Pulse Oximetry Oxygen Delivery Oxygen Flow Rate Fraction of Inspired Oxygen 04/29/24 17:15 04/29/24 17:30 04/29/24 18:00 Temperature Pulse Rate 78 77 76 Pulse Rate [Bilateral Pedal (Dorsalis Pedis) Palpation] Respiratory Rate 20 20 Blood Pressure Pulse Oximetry Oxygen Delivery Oxygen Flow Rate Fraction of Inspired Oxygen 04/29/24 18:00 04/29/24 18:00 04/29/24 20:00 Temperature Pulse Rate 72 72 74 Pulse Rate [Bilateral Pedal (Dorsalis Pedis) Palpation] Respiratory Rate 20 20 20 Blood Pressure Pulse Oximetry Oxygen Delivery Oxygen Flow Rate Fraction of Inspired Oxygen 04/29/24 20:00 04/29/24 20:00 04/29/24 20:00 Temperature Pulse Rate 74 Pulse Rate [Bilateral Pedal (Dorsalis Pedis) Palpation] Respiratory Rate 20 Blood Pressure Pulse Oximetry Oxygen Delivery Mechanical Ventilation Oxygen Flow Rate Fraction of Inspired Oxygen 100 100 04/29/24 20:00 04/29/24 20:00 04/29/24 21:00 Temperature 98.9 F Pulse Rate 75 71 80 Pulse Rate [Bilateral Pedal (Dorsalis Pedis) Palpation] Respiratory Rate 20 20 Blood Pressure 124/73 Pulse Oximetry 95 Oxygen Delivery Oxygen Flow Rate Fraction of Inspired Oxygen 04/29/24 21:06 04/29/24 21:10 04/29/24 22:00 Temperature Pulse Rate 81 82 86 Pulse Rate [Bilateral Pedal (Dorsalis Pedis) Palpation] Respiratory Rate 20 20 Blood Pressure 112/56 L Pulse Oximetry 95 95 Oxygen Delivery Mechanical Ventilation Oxygen Flow Rate Fraction of Inspired Oxygen 100 04/29/24 22:00 04/29/24 22:00 04/29/24 22:00 Temperature Pulse Rate 86 83 83 Pulse Rate [Bilateral Pedal (Dorsalis Pedis) Palpation] Respiratory Rate 20 20 Blood Pressure Pulse Oximetry Oxygen Delivery Oxygen Flow Rate Fraction of Inspired Oxygen 04/29/24 23:23 04/30/24 00:00 04/30/24 00:00 Temperature Pulse Rate 82 81 81 Pulse Rate [Bilateral Pedal (Dorsalis Pedis) Palpation] Respiratory Rate 20 20 Blood Pressure Pulse Oximetry 96 Oxygen Delivery Mechanical Ventilation Oxygen Flow Rate Fraction of Inspired Oxygen 100 04/30/24 00:00 04/30/24 00:00 04/30/24 00:00 Temperature Pulse Rate 81 Pulse Rate [Bilateral Pedal (Dorsalis Pedis) Palpation] Respiratory Rate Blood Pressure Pulse Oximetry Oxygen Delivery Mechanical Ventilation Oxygen Flow Rate Fraction of Inspired Oxygen 100 100 04/30/24 00:00 04/30/24 02:00 04/30/24 02:00 Temperature 99.0 F Pulse Rate 80 85 87 Pulse Rate [Bilateral Pedal (Dorsalis Pedis) Palpation] Respiratory Rate 20 21 H Blood Pressure 105/65 Pulse Oximetry 96 Oxygen Delivery Oxygen Flow Rate Fraction of Inspired Oxygen 04/30/24 02:00 04/30/24 02:01 04/30/24 02:11 Temperature 99.8 F H Pulse Rate 87 85 85 Pulse Rate [Bilateral Pedal (Dorsalis Pedis) Palpation] Respiratory Rate 21 H 21 H 23 H Blood Pressure 97/60 L Pulse Oximetry 97 Oxygen Delivery Oxygen Flow Rate Fraction of Inspired Oxygen 04/30/24 02:11 04/30/24 03:30 04/30/24 03:31 Temperature 100.1 F H 100.1 F H Pulse Rate 84 93 94 Pulse Rate [Bilateral Pedal (Dorsalis Pedis) Palpation] Respiratory Rate 16 17 Blood Pressure 112/65 Pulse Oximetry 97 95 94 Oxygen Delivery Mechanical Ventilation Oxygen Flow Rate Fraction of Inspired Oxygen 80 04/30/24 03:45 04/30/24 04:00 04/30/24 04:00 Temperature 100.3 F H Pulse Rate 90 91 91 Pulse Rate [Bilateral Pedal (Dorsalis Pedis) Palpation] Respiratory Rate 18 20 20 Blood Pressure 109/59 L Pulse Oximetry 95 Oxygen Delivery Oxygen Flow Rate Fraction of Inspired Oxygen 04/30/24 04:00 04/30/24 04:00 04/30/24 04:00 Temperature Pulse Rate 93 Pulse Rate [Bilateral Pedal (Dorsalis Pedis) Palpation] Respiratory Rate Blood Pressure Pulse Oximetry Oxygen Delivery Mechanical Ventilation Oxygen Flow Rate Fraction of Inspired Oxygen 80 80 04/30/24 04:01 04/30/24 04:49 04/30/24 05:30 Temperature 100.2 F H 100.8 F H Pulse Rate 93 95 99 Pulse Rate [Bilateral Pedal (Dorsalis Pedis) Palpation] Respiratory Rate 21 H 20 Blood Pressure 111/69 118/67 Pulse Oximetry 95 95 96 Oxygen Delivery Mechanical Ventilation Oxygen Flow Rate Fraction of Inspired Oxygen 80 04/30/24 06:00 12/14/24 06:00 04/30/24 06:00 Temperature 100.8 F H Pulse Rate 97 97 97 Pulse Rate [Bilateral Pedal (Dorsalis Pedis) Palpation] Respiratory Rate 20 20 Blood Pressure 114/69 Pulse Oximetry 96 Oxygen Delivery Oxygen Flow Rate Fraction of Inspired Oxygen 04/30/24 06:00 04/30/24 07:33 04/30/24 07:34 Temperature Pulse Rate 97 94 94 Pulse Rate [Bilateral Pedal (Dorsalis Pedis) Palpation] Respiratory Rate 20 24 H Blood Pressure Pulse Oximetry 95 Oxygen Delivery Mechanical Ventilation Oxygen Flow Rate Fraction of Inspired Oxygen 80 04/30/24 07:49 04/30/24 08:00 04/30/24 08:00 Temperature 100.5 F H Pulse Rate 98 100 96 Pulse Rate [Bilateral Pedal (Dorsalis Pedis) Palpation] Respiratory Rate 22 H 21 H 21 H Blood Pressure 121/68 Pulse Oximetry 96 Oxygen Delivery Oxygen Flow Rate Fraction of Inspired Oxygen 04/30/24 08:00 04/30/24 08:00 04/30/24 08:14 Temperature Pulse Rate 96 96 Pulse Rate [Bilateral Pedal (Dorsalis Pedis) Palpation] 103 H Respiratory Rate 21 H 21 H Blood Pressure Pulse Oximetry 96 Oxygen Delivery Mechanical Ventilation Oxygen Flow Rate Fraction of Inspired Oxygen 80 Exam 2 Narrative: General: Intubated and sedated in no acute distress HEENT:? Pupils equal and reactive, sclera is icteric Neck:? Supple Respiratory:? Coarse breath sounds bilaterally, decreased at bases, adequate air entry, no wheezing Cardiac:? S1-S2 normal, regular rate and rhythm Abdomen:? Soft, nontender, nondistended, hypoactive bowel sound Extremities:? No edema, palpable pedal pulses, lower extremities have muscular rigidity Neuro:? Patient is sedated, intubated, does not open her eyes or follow simple commands, does withdraw to pain in all extremities Skin:? Spider nevi on the upper part of her torso Psych:? Unable to assess at this time Results Labs 04/30/24 03:45 04/30/24 03:45 Labs: Short CBC 04/30/24 Range/Units 03:45 WBC 17.7 H (4.5-10.0) K/mm3 Hgb 16.2 H (12.0-15.0) g/dL Hct 45.9 (37.0-47.0) % Plt Count 114 L (150-375) k/mm3 BMP 04/30/24 03:45 Sodium 133 L Potassium 3.4 Chloride 108 H Carbon Dioxide 21 L BUN 12 Creatinine 0.50 L Glucose 100 Calcium 8.4 Liver Function 04/30/24 Range/Units 03:45 Total Bilirubin 5.0 H (0.2-1.3) mg/dL AST 60 H (14-36) U/L ALT 32 (6-35) U/L Alkaline Phosphatase 134 H (38-126) U/L Albumin 3.0 L (3.5-5.1) g/dL Quality VTE Prophylaxis VTE prophylaxis: mechanical ordered Hospitalist MIPS Advance Care Plan I have confirmed that the patient's Advanced Care Plan is present, code status is documented, or surrogate decision maker is listed in patient medical record.: Yes Medication Reconciliation I have utilized all available resources to obtain, update and review the patients current medications (includes all prescriptions, OTC, herbals, cannabis, and nutritional supplements).: Yes
[2024-04-30] MEDS: rifAXIMin 550 MG TABLET FEED TUBE ×2 (08:55→20:26)
[2024-04-30] MEDS: MAGNESIUM SULFATE 3GM/D5W100ML 3 GM/100 ML BAG IVPB (08:55)
[2024-04-30] MEDS: PANTOPRAZOLE SODIUM IV 40 MG VIAL IV PUSH (08:55)
[2024-04-30] MEDS: LACTATED RINGERS 1,000 ML 999 ML IV CONT (08:56)
[2024-04-30] MEDS: POTASSIUM CHLORIDE 20 MEQ PACKET (FOR LIQUID) 40 MEQ FEED TUBE (08:56)
[2024-04-30] MEDS: MINERAL OIL/WHITE PETROLATUM OINTMENT 1 APPLIC EACH EYE ×2 (08:56→20:39)
[2024-04-30] MEDS: FOLIC ACID 1 MG/0.2 ML INJ IV PUSH (09:00)
[2024-04-30 09:29] LABS: Creatine Kinase 148 U/L (30-135)
[2024-04-30] MEDS: LACTATED RINGERS 1,000 ML 75 ML IV CONT (10:33)
[2024-04-30] MEDS: ALBUMIN HUMAN 25% 25 GM/100 ML 100 ML IVPB ×3 (12:03→23:12)
[2024-04-30 12:18] LABS: Glucose Point of Care 123 mg/dl (65-105)
[2024-04-30] MEDS: CENTRAL LINE FLUSH 10 ML IV PUSH ×2 (13:40→20:26)
--- NOTE | 2024-04-30 13:58 | WPDGICN ---
Assessment and Plan Assessment and plan (1) Alcoholic cirrhosis: Qualifiers: Ascites presence: unspecified Qualified Code(s): K70.30 - Alcoholic cirrhosis of liver without ascites Code(s): K70.30 - Alcoholic cirrhosis of liver without ascites Status: Acute Assessment and Plan: known history of cirrhosis based on records and imaging, ? alcohol use (noted ast/alt>2), maddrey score 37 (prefer not to treat with steroids because possible infection- ? uti vs pneumonia) started on tube feeding by NGT, nutrition support, icu care (2) Hepatitis, alcoholic, acute: Code(s): K70.10 - Alcoholic hepatitis without ascites Status: Acute Assessment and Plan: monitor viral hepatitis negative (3) Hepatic encephalopathy: Code(s): K76.82 - Hepatic encephalopathy Status: Acute Assessment and Plan: on lactulose (4) Hyperbilirubinemia: Code(s): E80.6 - Other disorders of bilirubin metabolism Status: Acute Assessment and Plan: from cirrhosis, alcohol use, also findings of chronic pancreatitis- multifactorial (5) UTI (urinary tract infection): Qualifiers: Hematuria presence: without hematuria Urinary tract infection type: acute cystitis Qualified Code(s): N30.00 - Acute cystitis without hematuria Code(s): N39.0 - Urinary tract infection, site not specified Status: Acute (6) Transaminitis: Code(s): R74.01 - Elevation of levels of liver transaminase levels Status: Acute (7) Acute hypoxic respiratory failure: Code(s): J96.01 - Acute respiratory failure with hypoxia Status: Acute Assessment and Plan: intubated (8) Pancreatic duct dilated: Code(s): K86.89 - Other specified diseases of pancreas Status: Acute (9) Chronic pancreatitis: Code(s): K86.1 - Other chronic pancreatitis Status: Acute Assessment and Plan: findings in CT scan, probably from alcohol use recommend to repeat imaging in 6 months- probably consider MRCP to assess pancreas and enlarged PD normal lipase at this time GI Consult Note Consult date/time: 04/30/24 13:58 Reason for consult: cirrhosis, chronic pancreatitis HPI: Amee Oconnell is a 49 year old female with past medical history of anxiety, chronic depression, chronic liver disease/cirrhosis, chronic pancreatitis, presented to the ED from [facility] on 04/25/2024 with worsening shortness of breath, lethargy, altered mental status, hypoxia. She was reportedly recently hospitalized at [facility] for psychiatric condition. History is obtained from records as she is intubated. Patient arrived obtunded and noted respiratory distress hence intubated and transferred to ICU. Ammonia level up to 173 and treated with lactulose. Initially on BiPAP but required more oxygen and finally had to be intubated. Bibilirubin is elevated to 5.0, mild elevation in LFTs. CTA chest/abdomen/pelvis reviewed, no pulmonary arteries. No central pulmonary embolus detected. Mild interstitial pulmonary edema. No pleural effusion is detected. Cirrhosis with portal hypertension.Chronic pancreatitis with marked pancreatic duct dilation. There is an 11 mm nodule in left lung upper lobe suspicious for primary bronchogenic carcinoma. CT brain- Stable appearance of mild age-related changes including mild diffuse volume loss and mild scattered white matter hypoattenuation consistent with chronic small vessel ischemic disease. No acute intracranial process. Review of Systems Review of Systems: ROS unobtainable: Yes unobtainable due to endotracheal tube and unobtainable due to mental status PMFSH Past Medical History Medical History (Updated 04/30/24 @ 14:07 by Tay Malik MD) Hepatitis, alcoholic, acute Suicidal ideation Esophageal varices Diabetes mellitus Anxiety Panic attacks Chronic depression Chronic pancreatitis Chronic liver disease Surgical History Surgical History History of bilateral ligation of fallopian tubes History of gastrointestinal surgery For esophageal varices Family History Family History (Updated 04/26/24 @ 02:21 by Alicia Muniz DO) Other Unknown family medical history Social History Social History Social History: Homeless but per documentation going through a messy divorce Smoking status: Unknown if ever smoked Alcohol use details: Liquor Substance use: unknown Education: Trade/Vocational Certificate Spiritual care concerns: No Meds Home Medications and Allergies Allergies Allergy/AdvReac Type Severity Reaction Status Date / Time No Known Allergies Allergy Verified 04/25/24 19:50 Vital Signs Vital Signs - 24 hr 04/29/24 14:00 04/29/24 14:01 04/29/24 14:12 Temperature Pulse Rate 96 98 Pulse Rate [Bilateral Pedal (Dorsalis Pedis) Palpation] Respiratory Rate 24 H Blood Pressure Pulse Oximetry 92 Oxygen Delivery High Flow Therapy with Na Oxygen Flow Rate 60 Fraction of Inspired Oxygen 64 04/29/24 16:00 04/29/24 16:00 04/29/24 16:00 Temperature 100.3 F H Pulse Rate 95 76 Pulse Rate [Bilateral Pedal (Dorsalis Pedis) Palpation] Respiratory Rate 32 H Blood Pressure 137/65 Pulse Oximetry 93 94 Oxygen Delivery Mechanical Ventilation Oxygen Flow Rate Fraction of Inspired Oxygen 04/29/24 16:17 04/29/24 16:30 04/29/24 16:34 Temperature Pulse Rate 88 80 84 Pulse Rate [Bilateral Pedal (Dorsalis Pedis) Palpation] Respiratory Rate 18 18 Blood Pressure Pulse Oximetry 96 Oxygen Delivery Mechanical Ventilation Oxygen Flow Rate Fraction of Inspired Oxygen 100 04/29/24 16:45 04/29/24 17:00 04/29/24 17:15 Temperature Pulse Rate 75 82 78 Pulse Rate [Bilateral Pedal (Dorsalis Pedis) Palpation] Respiratory Rate 20 22 H 20 Blood Pressure Pulse Oximetry Oxygen Delivery Oxygen Flow Rate Fraction of Inspired Oxygen 04/29/24 17:30 04/29/24 18:00 04/29/24 18:00 Temperature Pulse Rate 77 76 72 Pulse Rate [Bilateral Pedal (Dorsalis Pedis) Palpation] Respiratory Rate 20 20 Blood Pressure Pulse Oximetry Oxygen Delivery Oxygen Flow Rate Fraction of Inspired Oxygen 04/29/24 18:00 04/29/24 20:00 04/29/24 20:00 Temperature Pulse Rate 72 74 74 Pulse Rate [Bilateral Pedal (Dorsalis Pedis) Palpation] Respiratory Rate 20 20 20 Blood Pressure Pulse Oximetry Oxygen Delivery Oxygen Flow Rate Fraction of Inspired Oxygen 04/29/24 20:00 04/29/24 20:00 04/29/24 20:00 Temperature 98.9 F Pulse Rate 75 Pulse Rate [Bilateral Pedal (Dorsalis Pedis) Palpation] Respiratory Rate 20 Blood Pressure 124/73 Pulse Oximetry 95 Oxygen Delivery Mechanical Ventilation Oxygen Flow Rate Fraction of Inspired Oxygen 100 100 04/29/24 20:00 04/29/24 21:00 04/29/24 21:06 Temperature Pulse Rate 71 80 81 Pulse Rate [Bilateral Pedal (Dorsalis Pedis) Palpation] Respiratory Rate 20 Blood Pressure Pulse Oximetry 95 Oxygen Delivery Mechanical Ventilation Oxygen Flow Rate Fraction of Inspired Oxygen 100 04/29/24 21:10 04/29/24 22:00 04/29/24 22:00 Temperature Pulse Rate 82 86 86 Pulse Rate [Bilateral Pedal (Dorsalis Pedis) Palpation] Respiratory Rate 20 20 Blood Pressure 112/56 L Pulse Oximetry 95 Oxygen Delivery Oxygen Flow Rate Fraction of Inspired Oxygen 04/29/24 22:00 04/29/24 22:00 04/29/24 23:23 Temperature Pulse Rate 83 83 82 Pulse Rate [Bilateral Pedal (Dorsalis Pedis) Palpation] Respiratory Rate 20 20 Blood Pressure Pulse Oximetry 96 Oxygen Delivery Mechanical Ventilation Oxygen Flow Rate Fraction of Inspired Oxygen 100 04/30/24 00:00 04/30/24 00:00 04/30/24 00:00 Temperature Pulse Rate 81 81 Pulse Rate [Bilateral Pedal (Dorsalis Pedis) Palpation] Respiratory Rate 20 20 Blood Pressure Pulse Oximetry Oxygen Delivery Mechanical Ventilation Oxygen Flow Rate Fraction of Inspired Oxygen 100 04/30/24 00:00 04/30/24 00:00 04/30/24 00:00 Temperature 99.0 F Pulse Rate 81 80 Pulse Rate [Bilateral Pedal (Dorsalis Pedis) Palpation] Respiratory Rate 20 Blood Pressure 105/65 Pulse Oximetry 96 Oxygen Delivery Oxygen Flow Rate Fraction of Inspired Oxygen 100 04/30/24 02:00 04/30/24 02:00 04/30/24 02:00 Temperature Pulse Rate 85 87 87 Pulse Rate [Bilateral Pedal (Dorsalis Pedis) Palpation] Respiratory Rate 21 H 21 H Blood Pressure Pulse Oximetry Oxygen Delivery Oxygen Flow Rate Fraction of Inspired Oxygen 04/30/24 02:01 04/30/24 02:11 04/30/24 02:11 Temperature 99.8 F H Pulse Rate 85 85 84 Pulse Rate [Bilateral Pedal (Dorsalis Pedis) Palpation] Respiratory Rate 21 H 23 H Blood Pressure 97/60 L Pulse Oximetry 97 97 Oxygen Delivery Mechanical Ventilation Oxygen Flow Rate Fraction of Inspired Oxygen 80 04/30/24 03:30 04/30/24 03:31 04/30/24 03:45 Temperature 100.1 F H 100.1 F H 100.3 F H Pulse Rate 93 94 90 Pulse Rate [Bilateral Pedal (Dorsalis Pedis) Palpation] Respiratory Rate 16 17 18 Blood Pressure 112/65 109/59 L Pulse Oximetry 95 94 95 Oxygen Delivery Oxygen Flow Rate Fraction of Inspired Oxygen 04/30/24 04:00 04/30/24 04:00 04/30/24 04:00 Temperature Pulse Rate 91 91 Pulse Rate [Bilateral Pedal (Dorsalis Pedis) Palpation] Respiratory Rate 20 20 Blood Pressure Pulse Oximetry Oxygen Delivery Mechanical Ventilation Oxygen Flow Rate Fraction of Inspired Oxygen 80 04/30/24 04:00 04/30/24 04:00 04/30/24 04:01 Temperature 100.2 F H Pulse Rate 93 93 Pulse Rate [Bilateral Pedal (Dorsalis Pedis) Palpation] Respiratory Rate 21 H Blood Pressure 111/69 Pulse Oximetry 95 Oxygen Delivery Oxygen Flow Rate Fraction of Inspired Oxygen 80 04/30/24 04:49 04/30/24 05:30 04/30/24 06:00 Temperature 100.8 F H 100.8 F H Pulse Rate 95 99 97 Pulse Rate [Bilateral Pedal (Dorsalis Pedis) Palpation] Respiratory Rate 20 20 Blood Pressure 118/67 114/69 Pulse Oximetry 95 96 96 Oxygen Delivery Mechanical Ventilation Oxygen Flow Rate Fraction of Inspired Oxygen 80 04/30/24 06:00 04/30/24 06:00 04/30/24 06:00 Temperature Pulse Rate 97 97 97 Pulse Rate [Bilateral Pedal (Dorsalis Pedis) Palpation] Respiratory Rate 20 20 Blood Pressure Pulse Oximetry Oxygen Delivery Oxygen Flow Rate Fraction of Inspired Oxygen 04/30/24 07:33 04/30/24 07:34 04/30/24 07:49 Temperature Pulse Rate 94 94 98 Pulse Rate [Bilateral Pedal (Dorsalis Pedis) Palpation] Respiratory Rate 24 H 22 H Blood Pressure Pulse Oximetry 95 Oxygen Delivery Mechanical Ventilation Oxygen Flow Rate Fraction of Inspired Oxygen 80 04/30/24 08:00 04/30/24 08:00 04/30/24 08:00 Temperature 100.5 F H Pulse Rate 100 96 96 Pulse Rate [Bilateral Pedal (Dorsalis Pedis) Palpation] Respiratory Rate 21 H 21 H 21 H Blood Pressure 121/68 Pulse Oximetry 96 Oxygen Delivery Oxygen Flow Rate Fraction of Inspired Oxygen 04/30/24 08:00 04/30/24 08:00 04/30/24 08:14 Temperature Pulse Rate 96 103 H Pulse Rate [Bilateral Pedal (Dorsalis Pedis) Palpation] 103 H Respiratory Rate 21 H Blood Pressure Pulse Oximetry 96 Oxygen Delivery Mechanical Ventilation Oxygen Flow Rate Fraction of Inspired Oxygen 80 04/30/24 09:13 04/30/24 10:00 04/30/24 10:00 Temperature Pulse Rate 94 93 Pulse Rate [Bilateral Pedal (Dorsalis Pedis) Palpation] Respiratory Rate 15 15 Blood Pressure Pulse Oximetry Oxygen Delivery Oxygen Flow Rate Fraction of Inspired Oxygen 80 04/30/24 10:00 04/30/24 10:00 04/30/24 10:43 Temperature 100.1 F H Pulse Rate 94 93 93 Pulse Rate [Bilateral Pedal (Dorsalis Pedis) Palpation] Respiratory Rate 20 23 H Blood Pressure 102/57 L Pulse Oximetry 97 Oxygen Delivery Oxygen Flow Rate Fraction of Inspired Oxygen 04/30/24 10:43 04/30/24 11:42 04/30/24 12:00 Temperature 99.9 F H Pulse Rate 93 92 Pulse Rate [Bilateral Pedal (Dorsalis Pedis) Palpation] 91 Respiratory Rate 23 H 17 Blood Pressure 122/64 Pulse Oximetry 97 Oxygen Delivery Oxygen Flow Rate Fraction of Inspired Oxygen 04/30/24 12:00 04/30/24 12:00 04/30/24 12:00 Temperature Pulse Rate 92 93 Pulse Rate [Bilateral Pedal (Dorsalis Pedis) Palpation] Respiratory Rate 17 22 H Blood Pressure Pulse Oximetry 97 Oxygen Delivery Mechanical Ventilation Oxygen Flow Rate Fraction of Inspired Oxygen 60 60 04/30/24 12:00 04/30/24 12:00 Temperature Pulse Rate 93 93 Pulse Rate [Bilateral Pedal (Dorsalis Pedis) Palpation] Respiratory Rate 22 H Blood Pressure Pulse Oximetry Oxygen Delivery Oxygen Flow Rate Fraction of Inspired Oxygen Exam Narrative: General: Intubated and sedated in no acute distress, chronically ill appearing HEENT:? Pupils equal and reactive, sclera is icteric, NGT in place Neck:? Supple Respiratory:? Coarse breath sounds bilaterally, decreased at bases, no wheezing Cardiac:? S1-S2 normal, regular rate and rhythm Abdomen:? Soft, nontender, nondistended, hypoactive bowel sound Extremities:? No edema, palpable pedal pulses, lower extremities have muscular rigidity Neuro:? Patient is sedated, intubated, does not open her eyes or follow simple commands, does withdraw to pain in all extremities Skin:? Spider nevi on the upper part of her torso Psych:? Unable to assess at this time Results Labs 04/30/24 03:45 04/30/24 03:45 Labs: Short CBC 04/30/24 Range/Units 03:45 WBC 17.7 H (4.5-10.0) K/mm3 Hgb 16.2 H (12.0-15.0) g/dL Hct 45.9 (37.0-47.0) % Plt Count 114 L (150-375) k/mm3 BMP 04/30/24 03:45 Sodium 133 L Potassium 3.4 Chloride 108 H Carbon Dioxide 21 L BUN 12 Creatinine 0.50 L Glucose 100 Calcium 8.4 Cardiac Enzymes 04/30/24 Range/Units 03:39 Total Creatine Kinase 148 H (30-135) U/L Liver Function 04/30/24 Range/Units 03:45 Total Bilirubin 5.0 H (0.2-1.3) mg/dL AST 60 H (14-36) U/L ALT 32 (6-35) U/L Alkaline Phosphatase 134 H (38-126) U/L Albumin 3.0 L (3.5-5.1) g/dL
[2024-04-30] MEDS: IPRATROPIUM 0.5 MG/ALBUTEROL SULFATE 2.5 MG AMPUL.NEB 3 ML NEBULIZE ×2 (14:19→20:02)
--- NOTE | 2024-04-30 14:22 | PM.IMPN ---
Progress Note: A&P Assessment and Plan (1) Acute hypoxic respiratory failure: Code(s): J96.01 - Acute respiratory failure with hypoxia Status: Acute Assessment and Plan: Acute respiratory failure likely related to pneumonia intubated on 04/29 Continue Ventilation and Sedation per administrative hearing officer -continue cefepime, doxycycline vancomycin (04/29) monitor cultures (2) Cirrhosis: Code(s): K74.60 - Unspecified cirrhosis of liver Status: Acute Assessment and Plan: Patient with history of cirrhosis, likely alcoholic -given hyperbilirubinemia, marked pancreatic duct dilatation, elevated LFTs will have GI evaluate the patient 04/25/2024: CT chest/abdomen/pelvis IMPRESSION: Limited evaluation of the segmental and subsegmental pulmonary arteries. No central pulmonary embolus detected. Mild interstitial pulmonary edema. No pleural effusion is detected. Cirrhosis with portal hypertension. Chronic pancreatitis with marked pancreatic duct dilation. Correlate with pancreatic labs. GI eval noted and recommended MRCP in 6 months (3) Hepatic encephalopathy: Code(s): K76.82 - Hepatic encephalopathy Status: Acute Assessment and Plan: Patient with hepatic encephalopathy with hyperbilirubinemia -on lactulose and rifaximin -ammonia levels are improving, 46 today (4) Hyperbilirubinemia: Code(s): E80.6 - Other disorders of bilirubin metabolism Status: Acute Assessment and Plan: Likely related to cirrhosis -hepatitis panel negative -right upper quadrant ultrasound showed cirrhosis with portal hypertension, cholelithiasis, pancreatic duct dilatation MRCP in 6 months per GI (5) Hospital-acquired pneumonia: Code(s): J18.9 - Pneumonia, unspecified organism; Y95 - Nosocomial condition Status: Acute Assessment and Plan: Patient with respiratory failure, increased oxygen requirements, CTA negative for PE, chest x-ray with possible pneumonia -continue antibiotics as above -04/28/2024: Preliminary blood cultures are negative x2 -04/30/2024: Sputum cultures obtained and pending (6) Thrombocytopenia: Code(s): D69.6 - Thrombocytopenia, unspecified Status: Acute Assessment and Plan: Thrombocytopenia likely related to chronic alcohol use, cirrhosis, acute critical care illness plts 114 (7) UTI (urinary tract infection): Qualifiers: Hematuria presence: without hematuria Urinary tract infection type: acute cystitis Qualified Code(s): N30.00 - Acute cystitis without hematuria Code(s): N39.0 - Urinary tract infection, site not specified Status: Acute Assessment and Plan: Please urine cultures growing E coli pansensitive -continue antibiotics as above Plan DVT prophylaxis: SCDs, no chemoprophylaxis due to thrombocytopenia Stress ulcer prophylaxis: Protonix Nutrition: Will start trickle tube feeds Code Status: Full code Subjective Date/time seen: 04/30/24 14:22 Interval history: Patient intubated and vented at bedside NH3 46, improving Review of Systems Review of Systems: All systems reviewed & are unremarkable except as noted in HPI and below ROS unobtainable: Yes unobtainable due to endotracheal tube, unobtainable due to medical condition and unobtainable due to mental status Exam Narrative: General: Intubated and sedated in no acute distress HEENT:? Pupils equal and reactive, sclera is icteric Neck:? Supple Respiratory:? Coarse breath sounds bilaterally, decreased at bases, adequate air entry, no wheezing Cardiac:? S1-S2 normal, regular rate and rhythm Abdomen:? Soft, nontender, nondistended, hypoactive bowel sound Extremities:? No edema, palpable pedal pulses, lower extremities have muscular rigidity Neuro:? Patient is sedated, intubated, does not open her eyes or follow simple commands, does withdraw to pain in all extremities Skin:? Spider nevi on the upper part of her torso Psych:? Unable to assess at this time Const: Other: Disheveled, appears older than stated age, height weight proportionate HENMT: Other: Dry mucous membranes with poor dentition some of the teeth the patient has remaining appear to be loose, patient is dried orange in whitish material to her lips as well as adherent to her gums and teeth, head is normocephalic atraumatic Eyes: Other: Pupils are constricted but sluggishly reactive unequal, mild scleral icterus bilaterally, no conjunctival pallor Neck: Other: Submandibular lymphadenopathy, no gross thyromegaly, no JVD Resp: Other: Equal breath sounds bilaterally, occasional wheezing Cardio: Other: Regular rate, regular rhythm, 2+ bilateral radial pedal pulses GI: Other: Slightly distended, nontender, mild hepatomegaly, normoactive bowel sounds Skin: Other: Hot to touch at the patient core body but cool fingers, still ectasias across the chest with some scattered petechiae and the chest in cheeks the, mild jaundice Neuro: Other: Patient is oriented to name only she mumbled something about being at home, she stated she needed get her mom, she could not answer questions regarding date and time or recent events, are the patient is alert and moving all extremities and was able to move herself down to the foot of the bed Extrem: Other: Clubbing of the nail beds in both hands and feet, no cyanosis, no edema Psych: Other: Confused, cooperative, poor judgment and insight Objective Data Vital Signs Vital Signs: Vital Signs - 24 hr 04/29/24 16:00 04/29/24 16:00 04/29/24 16:00 Temperature 100.3 F H Pulse Rate 95 76 Pulse Rate [Bilateral Pedal (Dorsalis Pedis) Palpation] Respiratory Rate 32 H Blood Pressure 137/65 Pulse Oximetry 93 94 Oxygen Delivery Mechanical Ventilation Fraction of Inspired Oxygen 04/29/24 16:17 04/29/24 16:30 04/29/24 16:34 Temperature Pulse Rate 88 80 84 Pulse Rate [Bilateral Pedal (Dorsalis Pedis) Palpation] Respiratory Rate 18 18 Blood Pressure Pulse Oximetry 96 Oxygen Delivery Mechanical Ventilation Fraction of Inspired Oxygen 100 04/29/24 16:45 04/29/24 17:00 04/29/24 17:15 Temperature Pulse Rate 75 82 78 Pulse Rate [Bilateral Pedal (Dorsalis Pedis) Palpation] Respiratory Rate 20 22 H 20 Blood Pressure Pulse Oximetry Oxygen Delivery Fraction of Inspired Oxygen 04/29/24 17:30 04/29/24 18:00 04/29/24 18:00 Temperature Pulse Rate 77 76 72 Pulse Rate [Bilateral Pedal (Dorsalis Pedis) Palpation] Respiratory Rate 20 20 Blood Pressure Pulse Oximetry Oxygen Delivery Fraction of Inspired Oxygen 04/29/24 18:00 04/29/24 20:00 04/29/24 20:00 Temperature Pulse Rate 72 74 74 Pulse Rate [Bilateral Pedal (Dorsalis Pedis) Palpation] Respiratory Rate 20 20 20 Blood Pressure Pulse Oximetry Oxygen Delivery Fraction of Inspired Oxygen 04/29/24 20:00 04/29/24 20:00 04/29/24 20:00 Temperature 98.9 F Pulse Rate 75 Pulse Rate [Bilateral Pedal (Dorsalis Pedis) Palpation] Respiratory Rate 20 Blood Pressure 124/73 Pulse Oximetry 95 Oxygen Delivery Mechanical Ventilation Fraction of Inspired Oxygen 100 100 04/29/24 20:00 04/29/24 21:00 04/29/24 21:06 Temperature Pulse Rate 71 80 81 Pulse Rate [Bilateral Pedal (Dorsalis Pedis) Palpation] Respiratory Rate 20 Blood Pressure Pulse Oximetry 95 Oxygen Delivery Mechanical Ventilation Fraction of Inspired Oxygen 100 04/29/24 21:10 04/29/24 22:00 04/29/24 22:00 Temperature Pulse Rate 82 86 86 Pulse Rate [Bilateral Pedal (Dorsalis Pedis) Palpation] Respiratory Rate 20 20 Blood Pressure 112/56 L Pulse Oximetry 95 Oxygen Delivery Fraction of Inspired Oxygen 04/29/24 22:00 04/29/24 22:00 04/29/24 23:23 Temperature Pulse Rate 83 83 82 Pulse Rate [Bilateral Pedal (Dorsalis Pedis) Palpation] Respiratory Rate 20 20 Blood Pressure Pulse Oximetry 96 Oxygen Delivery Mechanical Ventilation Fraction of Inspired Oxygen 100 04/30/24 00:00 04/30/24 00:00 04/30/24 00:00 Temperature Pulse Rate 81 81 Pulse Rate [Bilateral Pedal (Dorsalis Pedis) Palpation] Respiratory Rate 20 20 Blood Pressure Pulse Oximetry Oxygen Delivery Mechanical Ventilation Fraction of Inspired Oxygen 100 04/30/24 00:00 04/30/24 00:00 04/30/24 00:00 Temperature 99.0 F Pulse Rate 81 80 Pulse Rate [Bilateral Pedal (Dorsalis Pedis) Palpation] Respiratory Rate 20 Blood Pressure 105/65 Pulse Oximetry 96 Oxygen Delivery Fraction of Inspired Oxygen 100 04/30/24 02:00 04/30/24 02:00 04/30/24 02:00 Temperature Pulse Rate 85 87 87 Pulse Rate [Bilateral Pedal (Dorsalis Pedis) Palpation] Respiratory Rate 21 H 21 H Blood Pressure Pulse Oximetry Oxygen Delivery Fraction of Inspired Oxygen 04/30/24 02:01 04/30/24 02:11 04/30/24 02:11 Temperature 99.8 F H Pulse Rate 85 85 84 Pulse Rate [Bilateral Pedal (Dorsalis Pedis) Palpation] Respiratory Rate 21 H 23 H Blood Pressure 97/60 L Pulse Oximetry 97 97 Oxygen Delivery Mechanical Ventilation Fraction of Inspired Oxygen 80 04/30/24 03:30 04/30/24 03:31 04/30/24 03:45 Temperature 100.1 F H 100.1 F H 100.3 F H Pulse Rate 93 94 90 Pulse Rate [Bilateral Pedal (Dorsalis Pedis) Palpation] Respiratory Rate 16 17 18 Blood Pressure 112/65 109/59 L Pulse Oximetry 95 94 95 Oxygen Delivery Fraction of Inspired Oxygen 04/30/24 04:00 04/30/24 04:00 04/30/24 04:00 Temperature Pulse Rate 91 91 Pulse Rate [Bilateral Pedal (Dorsalis Pedis) Palpation] Respiratory Rate 20 20 Blood Pressure Pulse Oximetry Oxygen Delivery Mechanical Ventilation Fraction of Inspired Oxygen 80 04/30/24 04:00 04/30/24 04:00 04/30/24 04:01 Temperature 100.2 F H Pulse Rate 93 93 Pulse Rate [Bilateral Pedal (Dorsalis Pedis) Palpation] Respiratory Rate 21 H Blood Pressure 111/69 Pulse Oximetry 95 Oxygen Delivery Fraction of Inspired Oxygen 80 04/30/24 04:49 04/30/24 05:30 04/30/24 06:00 Temperature 100.8 F H 100.8 F H Pulse Rate 95 99 97 Pulse Rate [Bilateral Pedal (Dorsalis Pedis) Palpation] Respiratory Rate 20 20 Blood Pressure 118/67 114/69 Pulse Oximetry 95 96 96 Oxygen Delivery Mechanical Ventilation Fraction of Inspired Oxygen 80 04/30/24 06:00 04/30/24 06:00 04/30/24 06:00 Temperature Pulse Rate 97 97 97 Pulse Rate [Bilateral Pedal (Dorsalis Pedis) Palpation] Respiratory Rate 20 20 Blood Pressure Pulse Oximetry Oxygen Delivery Fraction of Inspired Oxygen 04/30/24 07:33 04/30/24 07:34 04/30/24 07:49 Temperature Pulse Rate 94 94 98 Pulse Rate [Bilateral Pedal (Dorsalis Pedis) Palpation] Respiratory Rate 24 H 22 H Blood Pressure Pulse Oximetry 95 Oxygen Delivery Mechanical Ventilation Fraction of Inspired Oxygen 80 04/30/24 08:00 04/30/24 08:00 04/30/24 08:00 Temperature 100.5 F H Pulse Rate 100 96 96 Pulse Rate [Bilateral Pedal (Dorsalis Pedis) Palpation] Respiratory Rate 21 H 21 H 21 H Blood Pressure 121/68 Pulse Oximetry 96 Oxygen Delivery Fraction of Inspired Oxygen 04/30/24 08:00 04/30/24 08:00 04/30/24 08:14 Temperature Pulse Rate 96 103 H Pulse Rate [Bilateral Pedal (Dorsalis Pedis) Palpation] 103 H Respiratory Rate 21 H Blood Pressure Pulse Oximetry 96 Oxygen Delivery Mechanical Ventilation Fraction of Inspired Oxygen 80 04/30/24 09:13 04/30/24 10:00 04/30/24 10:00 Temperature Pulse Rate 94 93 Pulse Rate [Bilateral Pedal (Dorsalis Pedis) Palpation] Respiratory Rate 15 15 Blood Pressure Pulse Oximetry Oxygen Delivery Fraction of Inspired Oxygen 80 04/30/24 10:00 04/30/24 10:00 04/30/24 10:04 Temperature 100.1 F H Pulse Rate 94 93 Pulse Rate [Bilateral Pedal (Dorsalis Pedis) Palpation] Respiratory Rate 20 Blood Pressure 102/57 L Pulse Oximetry 97 99 Oxygen Delivery Fraction of Inspired Oxygen 80 04/30/24 10:25 04/30/24 10:43 04/30/24 10:43 Temperature Pulse Rate 94 93 93 Pulse Rate [Bilateral Pedal (Dorsalis Pedis) Palpation] Respiratory Rate 23 H 23 H Blood Pressure Pulse Oximetry 97 Oxygen Delivery Mechanical Ventilation Fraction of Inspired Oxygen 60 04/30/24 11:42 04/30/24 12:00 04/30/24 12:00 Temperature 99.9 F H Pulse Rate 92 Pulse Rate [Bilateral Pedal (Dorsalis Pedis) Palpation] 91 Respiratory Rate 17 Blood Pressure 122/64 Pulse Oximetry 97 Oxygen Delivery Fraction of Inspired Oxygen 60 04/30/24 12:00 04/30/24 12:00 04/30/24 12:00 Temperature Pulse Rate 92 93 93 Pulse Rate [Bilateral Pedal (Dorsalis Pedis) Palpation] Respiratory Rate 17 22 H 22 H Blood Pressure Pulse Oximetry 97 Oxygen Delivery Mechanical Ventilation Fraction of Inspired Oxygen 60 04/30/24 12:00 04/30/24 14:00 04/30/24 14:00 Temperature Pulse Rate 93 90 90 Pulse Rate [Bilateral Pedal (Dorsalis Pedis) Palpation] Respiratory Rate 21 H 21 H Blood Pressure Pulse Oximetry Oxygen Delivery Fraction of Inspired Oxygen 04/30/24 14:00 04/30/24 14:00 Temperature 99.9 F H Pulse Rate 90 89 Pulse Rate [Bilateral Pedal (Dorsalis Pedis) Palpation] Respiratory Rate 20 Blood Pressure 99/65 L Pulse Oximetry 97 Oxygen Delivery Fraction of Inspired Oxygen Intake/Output Intake/Output: Intake & Output 04/27/24 04/28/24 04/29/24 04/30/24 23:59 23:59 23:59 23:59 Intake Total 2120 2320.0 1603.0 2216.6 Output Total 2551 3200 1999 650 [facility] -1231 -880.0 -397.0 1566.6 Meds/Results Medications: Active Medications Generic Name Dose Route Start Last Admin Trade Name Freq PRN Reason Stop Dose Admin Albuterol/Ipratropium 3 ml 04/30/24 14:00 04/30/24 14:19 Ipratropium 0.5 Mg/Albuterol Sulfate 2.5 Mg Ampul.Neb 3 Ml NEBULIZE 3 ml Q6HRT MICHOACANO Administration Dextrose 12.5 gm 04/26/24 02:36 Dextrose 50% 25 Gm/50 Ml Syringe IV PUSH PRN PRN Hypoglycemia Protocol Folic Acid 1 mg 04/30/24 09:00 04/30/24 09:00 Folic Acid 1 Mg/0.2 Ml Inj IV PUSH 1 mg QAM MICHOACANO Administration Glucagon 1 mg 04/26/24 02:36 Glucagon For Inj 1 Mg Vial IM PRN PRN Hypoglycemia Protocol Glucose 15 gm 04/26/24 02:36 Glucose Oral Gel 15 Gm Of Glucse In 37.5 Gm Tube PO PRN PRN Hypoglycemia Protocol Lactated Ringer's 1,000 mls @ 75 mls/hr 04/26/24 01:30 04/30/24 12:48 Lr - Lactated Ringers Iv IV CONT Not Given .[id number] MICHOACANO Thiamine HCl 500 mg in 100 mls @ 200 mls/hr 04/26/24 02:25 04/30/24 13:40 IVPB 05/01/24 02:24 200 mls/hr Q8H MICHOACANO Administration Dextrose 1,000 mls @ 100 mls/hr 04/26/24 02:36 Dextrose 5% 1,000 Ml IVPB PRN PRN Hypoglycemia Protocol Doxycycline Hyclate 100 mg in 100 mls @ 100 mls/hr 04/29/24 17:00 04/30/24 04:56 Vibramycin 100 Mg/Ns 100 Ml IVPB 100 mls/hr Q12H MICHOACANO Administration Fentanyl Citrate 2,500 mcg in 250 mls @ 5 mls/hr 04/29/24 15:55 04/30/24 14:00 Fentanyl 2,500 Mcg/Ns 250 Ml IV CONT 50 mcg/hr .Q50H MICHOACANO 5 mls/hr Infusion 50 MCG/HR Midazolam HCl 100 mg in 100 mls @ 2 mls/hr 04/29/24 15:55 04/30/24 14:00 Versed 100 Mg/Ns 100 Ml IV CONT 2 mg/hr .Q50H MICHOACANO 2 mls/hr Infusion 2 MG/HR Cefepime HCl 2 gm in 50 mls @ 100 mls/hr 04/29/24 20:00 04/30/24 12:33 Maxipime 2 Gm/Ns 50 Ml IVPB Infused Q8H MICHOACANO Infusion Vancomycin HCl 1,500 mg in 500 mls @ 250 mls/hr 04/30/24 06:00 04/30/24 13:41 Vancomycin 1,500 Mg/Ns 500 Ml IVPB 250 mls/hr Q8H MICHOACANO Administration Albumin Human 100 mls @ 60 mls/hr 04/30/24 12:00 04/30/24 13:44 Albutein IVPB 05/01/24 07:39 Infused Q6HR MICHOACANO Infusion Ibuprofen 400 mg 04/26/24 01:26 04/27/24 01:10 Ibuprofen 400 Mg Tablet PO 400 mg Q6H PRN Administration Mild Pain (1-3) or Fever Lactulose 20 gm 04/28/24 19:55 04/30/24 13:43 Lactulose 20 Gm/30 Ml Udc PO 20 gm Q8HR MICHOACANO Administration Multi-Ingred Cream/Lotion/Oil/Oint 1 applic 04/30/24 09:00 04/30/24 08:56 Mineral Oil/White Petrolatum Ointment EACH EYE 1 applic Q12HR MICHOACANO Administration Ondansetron HCl 4 mg 04/26/24 01:26 Ondansetron Inj 4 Mg/2 Ml Vial IV PUSH Q4H PRN Nausea Pantoprazole Sodium 40 mg 04/30/24 09:00 04/30/24 08:55 Pantoprazole Sodium Iv 40 Mg Vial IV PUSH 40 mg DAILY MICHOACANO Administration Rifaximin 550 mg 04/29/24 09:00 04/30/24 08:55 Rifaximin 550 Mg Tablet FEED TUBE 550 mg Q12HR MICHOACANO Administration Sodium Chloride 20 ml 04/30/24 08:26 Central Line Flush IV PUSH PRN PRN after blood draws Sodium Chloride 10 ml 04/30/24 08:26 Central Line Flush IV PUSH PRN PRN with TPN bag changes Sodium Chloride 10 ml 04/30/24 14:00 04/30/24 13:40 Central Line Flush IV PUSH 10 ml Q8HR MICHOACANO Administration Radiology Results: ITS Impressions Cervical Spine CT 04/25/24 19:55 IMPRESSION: No acute fracture or traumatic malalignment in the cervical spine. Abdomen Ultrasound 04/25/24 21:27 IMPRESSION: Cirrhosis with portal hypertension. Cholelithiasis. Pancreatic duct dilation. Chest/Abdomen/Pelvis CTA 04/25/24 21:32 IMPRESSION: Limited evaluation of the segmental and subsegmental pulmonary arteries. No central pulmonary embolus detected. Mild interstitial pulmonary edema. No pleural effusion is detected. Cirrhosis with portal hypertension. Chronic pancreatitis with marked pancreatic duct dilation. Correlate with pancreatic labs. ADDENDUM: 04/29/24 1515 There is an 11 mm nodule in left lung upper lobe suspicious for primary bronchogenic carcinoma. Noncontrast low-dose chest CT is recommended in [address] 04/28/24 10:30 IMPRESSION: 1. Stable appearance of mild age-related changes including mild diffuse volume loss and mild scattered white matter hypoattenuation consistent with chronic small vessel ischemic disease. No acute intracranial process. Abdomen X-Ray 04/29/24 16:22 IMPRESSION: 1. Nasogastric tube tip in the distal stomach. Chest X-Ray 04/30/24 08:47 IMPRESSION: 1. Endotracheal tube tip just within the right mainstem bronchus. This has been withdrawn on the three-hour subsequent radiograph. The tip of the lower lung zones, left greater than right which could represent atelectasis or pneumonia. Labs Labs: Laboratory Results - last 24 hr 04/29/24 04/29/24 04/29/24 16:45 17:19 19:06 WBC RBC Hgb Hct MCV MCH MCHC RDW Plt Count MPV Immature Gran % (Auto) Neut % (Auto) Lymph % (Auto) [place] % (Auto) Eos % (Auto) Baso % (Auto) Lymph # (Auto) [place] # (Auto) Eos # (Auto) Baso # (Auto) Abs Immat Gran (auto) Absolute Neuts (auto) Absolute Nucleated RBC Nucleated RBC % % Immature Plt Fraction PT INR APTT Puncture Site Right brachial ABG pH 7.430 ABG pCO2 32.0 L ABG pO2 75.2 L ABG PO2/FiO2 Ratio 0.75 ABG HCO3 20.8 L ABG O2 Saturation 95.6 ABG O2 Content 21.8 ABG Base Excess -2.4 A-a Gradient 605.8 Oxyhemoglobin 94.1 Carboxyhemoglobin 0.5 Methemoglobin 0.1 Reduced Hemoglobin 5.3 H Total Hemoglobin 16.5 O2 Delivery Device Ventilator O2 Liters/Min Not Reportable Minute Volume Not Reportable Vent Rate 20 Vent Mode Cmv FiO2 100 Tidal Volume 400 PEEP 8 Peak Inspir Pressure Not Reportable Pressure Support Not Reportable Sodium Potassium Chloride Carbon Dioxide Anion Gap BUN Creatinine Estim Creat Clear Calc Estimated GFR Glucose POC Capillary Glucose 123 H Calcium Magnesium Total Bilirubin AST ALT Alkaline Phosphatase Ammonia Total Creatine Kinase Total Protein Albumin Vancomycin Trough C. difficile (PCR) Negative 04/30/24 04/30/24 04/30/24 00:42 03:39 03:45 WBC 17.7 H RBC 4.62 Hgb 16.2 H Hct 45.9 MCV 99.4 MCH 35.1 H MCHC 35.3 RDW 13.6 Plt Count 114 L MPV 10.7 H Immature Gran % (Auto) 0.7 H Neut % (Auto) 77.9 H Lymph % (Auto) 9.4 L [place] % (Auto) 10.3 H Eos % (Auto) 1.1 Baso % (Auto) 0.6 Lymph # (Auto) 1.66 [place] # (Auto) 1.8 H Eos # (Auto) 0.2 Baso # (Auto) 0.1 Abs Immat Gran (auto) 0.13 H Absolute Neuts (auto) 13.8 H Absolute Nucleated RBC 0.000 Nucleated RBC % 0.0 % Immature Plt Fraction 4.9 PT 20.8 H INR 1.8 APTT 40.6 H Puncture Site ABG pH ABG pCO2 ABG pO2 ABG PO2/FiO2 Ratio ABG HCO3 ABG O2 Saturation ABG O2 Content ABG Base Excess A-a Gradient Oxyhemoglobin Carboxyhemoglobin Methemoglobin Reduced Hemoglobin Total Hemoglobin O2 Delivery Device O2 Liters/Min Minute Volume Vent Rate Vent Mode FiO2 Tidal Volume PEEP Peak Inspir Pressure Pressure Support Sodium 133 L Potassium 3.4 Chloride 108 H Carbon Dioxide 21 L Anion Gap 4 BUN 12 Creatinine 0.50 L Estim Creat Clear Calc 96 Estimated GFR > 60 Glucose 100 POC Capillary Glucose 97 Calcium 8.4 Magnesium 1.3 L Total Bilirubin 5.0 H AST 60 H ALT 32 Alkaline Phosphatase 134 H Ammonia 46 H Total Creatine Kinase 148 H Total Protein 7.0 Albumin 3.0 L Vancomycin Trough C. difficile (PCR) 04/30/24 04/30/24 04/30/24 05:07 05:21 12:15 WBC RBC Hgb Hct MCV MCH MCHC RDW Plt Count MPV Immature Gran % (Auto) Neut % (Auto) Lymph % (Auto) [place] % (Auto) Eos % (Auto) Baso % (Auto) Lymph # (Auto) [place] # (Auto) Eos # (Auto) Baso # (Auto) Abs Immat Gran (auto) Absolute Neuts (auto) Absolute Nucleated RBC Nucleated RBC % % Immature Plt Fraction PT INR APTT Puncture Site Left radial ABG pH 7.395 ABG pCO2 34.7 L ABG pO2 82.5 ABG PO2/FiO2 Ratio 1.03 ABG HCO3 20.8 L ABG O2 Saturation 96.2 ABG O2 Content 21.0 ABG Base Excess -3.3 A-a Gradient 451.5 Oxyhemoglobin 95.0 Carboxyhemoglobin 0.6 Methemoglobin 0.3 Reduced Hemoglobin 4.1 Total Hemoglobin 15.7 O2 Delivery Device Ventilator O2 Liters/Min Not Reportable Minute Volume Not Reportable Vent Rate 20 Vent Mode Cmv FiO2 80 Tidal Volume 400 PEEP 8 Peak Inspir Pressure Not Reportable Pressure Support Not Reportable Sodium Potassium Chloride Carbon Dioxide Anion Gap BUN Creatinine Estim Creat Clear Calc Estimated GFR Glucose POC Capillary Glucose 123 H Calcium Magnesium Total Bilirubin AST ALT Alkaline Phosphatase Ammonia Total Creatine Kinase Total Protein Albumin Vancomycin Trough 8.7 L C. difficile (PCR) Quality VTE Prophylaxis VTE prophylaxis: mechanical ordered
[2024-04-30] MEDS: METOPROLOL TARTRATE INJ 5 MG/5 ML VIAL 2.5 MG IV PUSH ×2 (14:51→14:58)
[2024-04-30 15:05] LABS: Hematocrit 38.5 % (37.0-47.0); Hemoglobin 13.4 g/dL (12.0-15.0); Immature Platelet Fraction Pct 4.2 % (0.9-11.2); Mean Corpuscular HGB Conc 34.8 g/dl (32-36); Mean Corpuscular Hemoglobin 35.1 pg (26-34); Mean Corpuscular Volume 100.8 fl (80-100); Mean Platelet Volume 10.6 fl (7.4-10.4); Platelet Count Result 100 k/mm3 (150-375); Red Blood Count 3.82 M/mm3 (4.2-5.4); Red Cell Distribution Width 13.6 % (11.5-14.5); White Blood Count 18.3 K/mm3 (4.5-10.0)
[2024-04-30 15:12] LABS: Anion Gap 4 mmol/L (4-12); Blood Urea Nitrogen 12 mg/dL (7-17); Calcium 8.3 mg/dL (8.4-10.2); Carbon Dioxide 23 mmol/L (22-30); Chloride 109 mmol/L (98-107); Estimated CRCL calculation 96 ml/min; Estimated Glomerular Filt Rate > 60; Glucose 118 mg/dL (65-110); Potassium 3.7 mmol/L (3.4-5.0); Sodium 136 mmol/L (137-145)
[2024-04-30 15:12] LABS: Magnesium 1.8 mg/dL (1.6-2.3)
[2024-04-30 15:23] LABS: Prothrombin Time 22.7 Seconds (11.1-14.7)
[2024-04-30 15:24] LABS: Fibrinogen 275 mg/dl (215-510); Partial Thromboplastin Time 45.7 Seconds (22.3-36.8)
[2024-04-30] MEDS: METOPROLOL TARTRATE 25 MG TABLET FEED TUBE (16:06)
--- NOTE | 2024-04-30 16:29 | ECG_ITS ---
Test Date: 2024-04-30 16:29:03 Measurements Intervals [place] Rate: 113 P: 28 TN: 158 QRS: 32 QRSD: 99 T: 12 QT: 398 QTc: 546 Interpretive Statements SINUS TACHYCARDIA WITH FREQUENT SUPRAVENTRICULAR PREMATURE COMPLEXES LOW QRS VOLTAGE IN EXTREMITY LEADS [QRS DEFLECTION < 0.5 mV IN LIMB LEADS] POSSIBLE INFERIOR MYOCARDIAL INFARCTION [30 ms Q WAVE IN II/aVF], PROBABLY OLD ABNORMAL RHYTHM ECG WARNING: DATA QUALITY MAY AFFECT INTERPRETATION Compared to ECG 04/29/2024 16:29:47 Sinus rhythm no longer present Electronically Signed On 05-01-2024 08:43:34 DIVISION COMMANDER by Yane Ahumada M.D.
--- NOTE | 2024-04-30 16:31 | ECG_ITS ---
Test Date: 2024-04-30 16:31:28 Measurements Intervals [place] Rate: 122 P: 23 IA: 157 QRS: 42 QRSD: 99 T: 23 QT: 406 QTc: 580 Interpretive Statements SINUS TACHYCARDIA WITH FREQUENT SUPRAVENTRICULAR PREMATURE COMPLEXES POSSIBLE INFERIOR MYOCARDIAL INFARCTION [30 ms Q WAVE IN II/aVF], PROBABLY OLD ABNORMAL RHYTHM ECG Compared to ECG 04/30/2024 16:29:03 No significant changes Electronically Signed On 05-01-2024 08:43:51 MOSQUITO SPRAYER by Yane Ahumada M.D.
--- NOTE | 2024-04-30 16:34 | ECG_ITS ---
Test Date: 2024-04-30 16:34:25 Measurements Intervals [place] Rate: 163 P: 0 ME: 0 QRS: 68 QRSD: 90 T: -7 QT: 278 QTc: 459 Interpretive Statements ATRIAL FIBRILLATION WITH RAPID VENTRICULAR RESPONSE LOW QRS VOLTAGE IN EXTREMITY LEADS [QRS DEFLECTION < 0.5 mV IN LIMB LEADS] ABNORMAL QRS-T ANGLE [QRS-T AXIS DIFFERENCE > 60] Compared to ECG 04/30/2024 16:31:28 Low QRS voltage now present Sinus tachycardia no longer present Electronically Signed On 05-01-2024 08:44:28 ALARM SECURITY OR SURVEILLANCE MONITOR by Yane Ahumada M.D.
[2024-04-30] MEDS: AMIODARONE 150 MG/D5W 100 ML 150 MG/100 ML BAG 600 MG IV CONT (16:48)
[2024-04-30] MEDS: AMIODARONE 360 MG/D5W 200 ML 360 MG/200 ML BAG 33.33 MG IV CONT (16:56)
[2024-04-30 18:57] LABS: Glucose Point of Care 124 mg/dl (65-105)
[2024-04-30] MEDS: AMIODARONE 360 MG/D5W 200 ML 360 MG/200 ML BAG 16.67 MG IV CONT (22:49)
[2024-05-01] VITALS (35 sets, daily range): BP systolic 86–140; BP diastolic 49–80; PULSE 20–94; RESP 20–21; TEMP 36.8–37.6; O2SAT 90–98
[2024-05-01] MEDS: LACTATED RINGERS 1,000 ML 75 ML IV CONT (00:57)
[2024-05-01 01:57] LABS: Glucose Point of Care 123 mg/dl (65-105)
[2024-05-01] MEDS: IPRATROPIUM 0.5 MG/ALBUTEROL SULFATE 2.5 MG AMPUL.NEB 3 ML NEBULIZE ×4 (02:24→21:36)
--- NOTE | 2024-05-01 02:53 | PC.NURSE ---
Dr Grande called per borderline blood pressures 87/50; order for Levophed received.
[2024-05-01] MEDS: NOREPINEPHRINE 8 MG/D5W 250 ML 8 MG/250 ML BAG 9.38 MG IV CONT (03:09)
[2024-05-01] MEDS: FENTANYL 2,500MCG/NS250ML(*CRX 2,500 MCG/250 ML BAG IV CONT (03:21)
[2024-05-01] MEDS: MIDAZOLAM 100MG/NS 100ML(*CRX) 100 MG/100 ML BAG IV CONT (03:22)
[2024-05-01] MEDS: CEFEPIME 2 GM/NS 50 ML 2 GM/50 ML BAG IVPB ×3 (03:34→19:37)
[2024-05-01] MEDS: LACTULOSE 20 GM/30 ML UDC PO ×3 (05:01→20:08)
[2024-05-01] MEDS: DOXYCYCLINE 100 MG/NS 100 ML 100 MG/100 ML BAG IVPB ×2 (05:01→18:00)
[2024-05-01] MEDS: ALBUMIN HUMAN 25% 25 GM/100 ML 100 ML IVPB (05:08)
[2024-05-01 05:29] LABS: Arterial Blood Gas PEEP 8 cmH2O; Arterial Blood Gas Tidal Volume 400 ml; Arterial Blood Gas Vent Mode CMV; Arterial Blood Gas Ventilator rate 20 /MIN; Base Excess ABG -3.5 mEq/l (+/-2.0); Carboxyhemoglobin 0.1 % THb (0-2.0); Device VENTILATOR; Fractional Inspired Oxygen 65 %; HCO3 ABG 20.7 mEq/l (22.0-26.0); Methemoglobin ABG 0.3 %THb (0-1.5); Modified Allen's Test Unable to perform; Oxygen Content ABG 16.8 %vol (16.0-22.0); Oxygen Saturation ABG 94.9 % (95.0-100.0); Oxyhemoglobin 93.9 % THb (90.0-100.0); PCO2 ABG 34.7 mmHg (35.0-45.0); PO2 ABG 73.7 mmHg (80.0-100.0); PO2 FiO2 Ratio Arterial Blood 1.13 %; Reduced Hemoglobin 5.7 %THb (0-5.0); Site Drawn RIGHT RADIAL; Total Hemoglobin 12.7 g/dL (12.0-18.0); pH ABG 7.393 (7.350-7.450)
[2024-05-01] MEDS: CENTRAL LINE FLUSH 10 ML IV PUSH ×3 (06:03→20:09)
[2024-05-01 06:14] LABS: Basophils Absolute Auto 0.1 K/mm3 (0.0-0.1); Basophils Percent Auto 0.8 % (0.2-1.2); Eosinophils Absolute Auto 0.4 K/mm3 (0-0.3); Eosinophils Percent Auto 2.5 % (0-4.4); Hematocrit 36.1 % (37.0-47.0); Hemoglobin 11.9 g/dL (12.0-15.0); Immature Granulocyte Absolute 0.12 K/mm3 (0.00-0.031); Immature Granulocyte Percent A 0.8 % (0-0.5); Immature Platelet Fraction Pct 5.8 % (0.9-11.2); Lymphocytes Absolute Auto 1.39 K/mm3 (0.9-3.2); Lymphocytes Percent Auto 8.8 % (18.3-44.2); Mean Corpuscular Hemoglobin 33.7 pg (26-34); Mean Corpuscular Volume 102.3 fl (80-100); Mean Platelet Volume 11.1 fl (7.4-10.4); Monocytes Absolute Auto 1.9 K/mm3 (0.1-0.6); Monocytes Percent Auto 12.1 % (2.6-8.5); Neutrophils Absolute Auto 11.9 K/mm3 (1.3-6.7); Platelet Count Result 102 k/mm3 (150-375); Red Blood Count 3.53 M/mm3 (4.2-5.4); Red Cell Distribution Width 13.5 % (11.5-14.5); White Blood Count 15.9 K/mm3 (4.5-10.0)
[2024-05-01 06:21] LABS: Lactic Acid Reflex 1.4 mmol/L (0.7-2.0)
[2024-05-01 06:25] LABS: INR 2.2
[2024-05-01 06:26] LABS: Partial Thromboplastin Time 48.7 Seconds (22.3-36.8)
[2024-05-01 06:28] LABS: Ammonia 44 umol/L (9-30)
[2024-05-01 06:33] LABS: CRP 5.9 mg/dL (<1.0); Creatine Kinase 257 U/L (30-135); Magnesium 1.6 mg/dL (1.6-2.3); Phosphorus 2.1 mg/dL (2.5-4.5); Vancomycin Trough 13.6 ug/mL (10.0-20.0)
[2024-05-01 06:42] LABS: Lipase < 10 U/L (23-300)
[2024-05-01] MEDS: VANCOMYCIN 1,750 MG/NS 500 ML 1,750 MG/500 ML BAG 250 MG IVPB ×3 (07:08→22:23)
[2024-05-01 07:21] LABS: Glucose Point of Care 127 mg/dl (65-105)
[2024-05-01 07:43] LABS: Alanine Aminotransferase 20 U/L (6-35); Albumin Level 3.2 g/dL (3.5-5.1); Alkaline Phosphatase 91 U/L (38-126); Anion Gap 8 mmol/L (4-12); Aspartate Amino Transferase 40 U/L (14-36); Bilirubin,Total 3.6 mg/dL (0.2-1.3); Blood Urea Nitrogen 13 mg/dL (7-17); Calcium 8.6 mg/dL (8.4-10.2); Carbon Dioxide 22 mmol/L (22-30); Chloride 107 mmol/L (98-107); Estimated CRCL calculation 96 ml/min; Estimated Glomerular Filt Rate > 60; Glucose 127 mg/dL (65-110); Potassium 3.3 mmol/L (3.4-5.0); Sodium 137 mmol/L (137-145)
[2024-05-01] MEDS: PHYTONADIONE ADULT INJ 10 MG in DEXTROSE 5% IN WATER 50 ML 100 MG IVPB (09:30)
[2024-05-01] MEDS: PANTOPRAZOLE SODIUM IV 40 MG VIAL IV PUSH (09:42)
[2024-05-01] MEDS: rifAXIMin 550 MG TABLET FEED TUBE ×2 (09:42→20:08)
[2024-05-01] MEDS: MINERAL OIL/WHITE PETROLATUM OINTMENT 1 APPLIC EACH EYE ×2 (09:42→20:09)
[2024-05-01] MEDS: FOLIC ACID 1 MG/0.2 ML INJ IV PUSH (10:00)
[2024-05-01] MEDS: MAGNESIUM SULF 2 GM/WATER 50ML 2 GM/50 ML BAG IVPB (10:58)
[2024-05-01] MEDS: KCL 40 MEQ/WATER 100 ML 100 ML 25 ML IVPB (10:58)
[2024-05-01] MEDS: POTASSIUM CHLORIDE 20 MEQ PACKET (FOR LIQUID) 40 MEQ FEED TUBE (10:59)
[2024-05-01] MEDS: POTASSIUM/PHOSPHORUS/SODIUM 1.5 GM PACKET 1 PACKET PO (10:59)
--- NOTE | 2024-05-01 11:34 | P.PNIM_ITS ---
Progress Note: A&P Assessment and Plan (1) Acute hypoxic respiratory failure: Code(s): J96.01 - Acute respiratory failure with hypoxia Status: Acute Assessment and Plan: Acute respiratory failure likely related to pneumonia intubated on 04/29 Continue Ventilation and Sedation per verification rep -continue cefepime, doxycycline vancomycin (04/29) monitor cultures (2) Cirrhosis: Code(s): K74.60 - Unspecified cirrhosis of liver Status: Acute Assessment and Plan: Patient with history of cirrhosis, likely alcoholic -given hyperbilirubinemia, marked pancreatic duct dilatation, elevated LFTs 04/25/2024: CT chest/abdomen/pelvis IMPRESSION: Limited evaluation of the segmental and subsegmental pulmonary arteries. No central pulmonary embolus detected. Mild interstitial pulmonary edema. No pleural effusion is detected. Cirrhosis with portal hypertension. Chronic pancreatitis with marked pancreatic duct dilation. Correlate with pancreatic labs. GI eval noted and recommended MRCP in 6 months (3) Hepatic encephalopathy: Code(s): K76.82 - Hepatic encephalopathy Status: Acute Assessment and Plan: Patient with hepatic encephalopathy with hyperbilirubinemia -on lactulose and rifaximin -ammonia levels are improving, 44 today (4) Hyperbilirubinemia: Code(s): E80.6 - Other disorders of bilirubin metabolism Status: Acute Assessment and Plan: Likely related to cirrhosis -hepatitis panel negative -right upper quadrant ultrasound showed cirrhosis with portal hypertension, cholelithiasis, pancreatic duct dilatation MRCP in 6 months per GI Bilirubin 3.6, down from 5.0 (5) Hospital-acquired pneumonia: Code(s): J18.9 - Pneumonia, unspecified organism; Y95 - Nosocomial condition Status: Acute Assessment and Plan: Patient with respiratory failure, increased oxygen requirements, CTA negative for PE, chest x-ray with possible pneumonia -continue antibiotics as above -04/28/2024: Preliminary blood cultures are negative x2 -04/30/2024: Sputum cultures obtained and pending (6) Thrombocytopenia: Code(s): D69.6 - Thrombocytopenia, unspecified Status: Acute Assessment and Plan: Thrombocytopenia likely related to chronic alcohol use, cirrhosis, acute critical care illness plts 114 (7) UTI (urinary tract infection): Qualifiers: Hematuria presence: without hematuria Urinary tract infection type: acute cystitis Qualified Code(s): N30.00 - Acute cystitis without hematuria Code(s): N39.0 - Urinary tract infection, site not specified Status: Acute Assessment and Plan: Please urine cultures growing E coli pansensitive -continue antibiotics as above Plan DVT prophylaxis: SCDs, no chemoprophylaxis due to thrombocytopenia Stress ulcer prophylaxis: Protonix Nutrition: Will start trickle tube feeds Code Status: Full code Subjective Date/time seen: 05/01/24 11:34 Interval history: Patient intubated and vented at bedside NH3 44, improving Review of Systems Review of Systems: All systems reviewed & are unremarkable except as noted in HPI and below ROS unobtainable: Yes unobtainable due to endotracheal tube, unobtainable due to medical condition and unobtainable due to mental status Exam Narrative: General: Intubated and sedated in no acute distress HEENT:? Pupils equal and reactive, sclera is icteric Neck:? Supple Respiratory:? Coarse breath sounds bilaterally, decreased at bases, adequate air entry, no wheezing Cardiac:? S1-S2 normal, regular rate and rhythm Abdomen:? Soft, nontender, nondistended, hypoactive bowel sound Extremities:? No edema, palpable pedal pulses, lower extremities have muscular rigidity Neuro:? Patient is sedated, intubated, does not open her eyes or follow simple commands, does withdraw to pain in all extremities Skin:? Spider nevi on the upper part of her torso Psych:? Unable to assess at this time Const: Other: Disheveled, appears older than stated age, height weight proportionate HENMT: Other: Dry mucous membranes with poor dentition some of the teeth the patient has remaining appear to be loose, patient is dried orange in whitish material to her lips as well as adherent to her gums and teeth, head is normocephalic atraumatic Eyes: Other: Pupils are constricted but sluggishly reactive unequal, mild scleral icterus bilaterally, no conjunctival pallor Neck: Other: Submandibular lymphadenopathy, no gross thyromegaly, no JVD Resp: Other: Equal breath sounds bilaterally, occasional wheezing Cardio: Other: Regular rate, regular rhythm, 2+ bilateral radial pedal pulses GI: Other: Slightly distended, nontender, mild hepatomegaly, normoactive bowel sounds Skin: Other: Hot to touch at the patient core body but cool fingers, still ectasias across the chest with some scattered petechiae and the chest in cheeks the, mild jaundice Neuro: Other: Patient is oriented to name only she mumbled something about being at home, she stated she needed get her mom, she could not answer questions regarding date and time or recent events, are the patient is alert and moving all extremities and was able to move herself down to the foot of the bed Extrem: Other: Clubbing of the nail beds in both hands and feet, no cyanosis, no edema Psych: Other: Confused, cooperative, poor judgment and insight Objective Data Vital Signs Vital Signs: Vital Signs - 24 hr 04/30/24 11:42 04/30/24 12:00 04/30/24 12:00 Temperature 99.9 F H Pulse Rate 92 Pulse Rate [Bilateral Pedal (Dorsalis Pedis) Palpation] 91 Pulse Rate [Monitor] Respiratory Rate 17 Blood Pressure 122/64 Pulse Oximetry 97 Oxygen Delivery Fraction of Inspired Oxygen 60 04/30/24 12:00 04/30/24 12:00 04/30/24 12:00 Temperature Pulse Rate 92 93 93 Pulse Rate [Bilateral Pedal (Dorsalis Pedis) Palpation] Pulse Rate [Monitor] Respiratory Rate 17 22 H 22 H Blood Pressure Pulse Oximetry 97 Oxygen Delivery Mechanical Ventilation Fraction of Inspired Oxygen 60 04/30/24 12:00 04/30/24 14:00 04/30/24 14:00 Temperature Pulse Rate 93 90 90 Pulse Rate [Bilateral Pedal (Dorsalis Pedis) Palpation] Pulse Rate [Monitor] Respiratory Rate 21 H 21 H Blood Pressure Pulse Oximetry Oxygen Delivery Fraction of Inspired Oxygen 04/30/24 14:00 04/30/24 14:00 04/30/24 14:00 Temperature 99.9 F H 99.9 F H Pulse Rate 90 89 92 Pulse Rate [Bilateral Pedal (Dorsalis Pedis) Palpation] Pulse Rate [Monitor] Respiratory Rate 20 21 H Blood Pressure 99/65 L 99/65 L Pulse Oximetry 97 97 Oxygen Delivery Fraction of Inspired Oxygen 04/30/24 14:01 04/30/24 14:23 04/30/24 14:24 Temperature 99.9 F H Pulse Rate 90 89 97 Pulse Rate [Bilateral Pedal (Dorsalis Pedis) Palpation] Pulse Rate [Monitor] Respiratory Rate 23 H 20 Blood Pressure Pulse Oximetry 97 97 Oxygen Delivery Mechanical Ventilation Fraction of Inspired Oxygen 60 04/30/24 14:30 04/30/24 14:31 04/30/24 14:51 Temperature 99.7 F H Pulse Rate 91 92 83 Pulse Rate [Bilateral Pedal (Dorsalis Pedis) Palpation] Pulse Rate [Monitor] Respiratory Rate 21 H 22 H Blood Pressure 122/68 Pulse Oximetry 97 Oxygen Delivery Fraction of Inspired Oxygen 04/30/24 14:58 04/30/24 15:00 04/30/24 15:01 Temperature 99.6 F 99.7 F H 99.7 F H Pulse Rate 83 80 82 Pulse Rate [Bilateral Pedal (Dorsalis Pedis) Palpation] Pulse Rate [Monitor] Respiratory Rate 18 18 23 H Blood Pressure 108/62 109/63 Pulse Oximetry 95 95 96 Oxygen Delivery Fraction of Inspired Oxygen 04/30/24 15:31 04/30/24 15:50 04/30/24 16:00 Temperature 99.8 F H 99.7 F H Pulse Rate 78 83 Pulse Rate [Bilateral Pedal (Dorsalis Pedis) Palpation] Pulse Rate [Monitor] Respiratory Rate 21 H 22 H Blood Pressure 100/55 L 119/67 Pulse Oximetry 94 92 Oxygen Delivery Fraction of Inspired Oxygen 50 04/30/24 16:00 04/30/24 16:00 04/30/24 16:00 Temperature Pulse Rate 81 81 Pulse Rate [Bilateral Pedal (Dorsalis Pedis) Palpation] Pulse Rate [Monitor] Respiratory Rate 24 H 24 H Blood Pressure Pulse Oximetry 93 Oxygen Delivery Mechanical Ventilation Fraction of Inspired Oxygen 50 04/30/24 16:00 04/30/24 16:01 04/30/24 16:06 Temperature 99.7 F H Pulse Rate 82 89 81 Pulse Rate [Bilateral Pedal (Dorsalis Pedis) Palpation] Pulse Rate [Monitor] Respiratory Rate 20 Blood Pressure Pulse Oximetry 93 Oxygen Delivery Fraction of Inspired Oxygen 04/30/24 16:31 04/30/24 16:48 04/30/24 16:48 Temperature 99.8 F H Pulse Rate 154 H 75 76 Pulse Rate [Bilateral Pedal (Dorsalis Pedis) Palpation] Pulse Rate [Monitor] Respiratory Rate 9 L Blood Pressure 108/63 108/63 Pulse Oximetry 94 94 Oxygen Delivery Mechanical Ventilation Fraction of Inspired Oxygen 50 04/30/24 16:56 04/30/24 16:59 04/30/24 17:00 Temperature 99.9 F H Pulse Rate 79 67 78 Pulse Rate [Bilateral Pedal (Dorsalis Pedis) Palpation] Pulse Rate [Monitor] Respiratory Rate 18 Blood Pressure 108/63 97/58 L 97/58 L Pulse Oximetry 91 Oxygen Delivery Fraction of Inspired Oxygen 04/30/24 17:01 04/30/24 17:30 04/30/24 17:47 Temperature 99.9 F H 99.8 F H 99.8 F H Pulse Rate 130 H 67 66 Pulse Rate [Bilateral Pedal (Dorsalis Pedis) Palpation] Pulse Rate [Monitor] Respiratory Rate 20 21 H 18 Blood Pressure 87/56 L 92/57 L Pulse Oximetry 91 92 91 Oxygen Delivery Fraction of Inspired Oxygen 04/30/24 18:00 04/30/24 18:00 04/30/24 18:00 Temperature 99.8 F H Pulse Rate 68 68 68 Pulse Rate [Bilateral Pedal (Dorsalis Pedis) Palpation] Pulse Rate [Monitor] Respiratory Rate 20 24 H Blood Pressure 97/54 L Pulse Oximetry 92 Oxygen Delivery Fraction of Inspired Oxygen 04/30/24 18:00 04/30/24 18:00 04/30/24 18:01 Temperature 99.8 F H Pulse Rate 68 68 68 Pulse Rate [Bilateral Pedal (Dorsalis Pedis) Palpation] Pulse Rate [Monitor] Respiratory Rate 24 H 20 Blood Pressure 97/54 L Pulse Oximetry 92 Oxygen Delivery Fraction of Inspired Oxygen 04/30/24 20:00 04/30/24 20:00 04/30/24 20:00 Temperature Pulse Rate 67 67 67 Pulse Rate [Bilateral Pedal (Dorsalis Pedis) Palpation] Pulse Rate [Monitor] Respiratory Rate 20 20 Blood Pressure 84/56 L Pulse Oximetry Oxygen Delivery Fraction of Inspired Oxygen 04/30/24 20:00 04/30/24 20:00 04/30/24 20:00 Temperature 100.6 F H Pulse Rate 67 Pulse Rate [Bilateral Pedal (Dorsalis Pedis) Palpation] Pulse Rate [Monitor] 67 Respiratory Rate 20 Blood Pressure 84/56 L 84/56 L Pulse Oximetry 92 Oxygen Delivery Fraction of Inspired Oxygen 60 04/30/24 20:00 04/30/24 20:00 04/30/24 20:02 Temperature Pulse Rate 67 66 66 Pulse Rate [Bilateral Pedal (Dorsalis Pedis) Palpation] Pulse Rate [Monitor] Respiratory Rate 20 20 Blood Pressure Pulse Oximetry 92 Oxygen Delivery Mechanical Ventilation Fraction of Inspired Oxygen 60 04/30/24 20:02 04/30/24 20:11 04/30/24 20:30 Temperature Pulse Rate 66 69 Pulse Rate [Bilateral Pedal (Dorsalis Pedis) Palpation] Pulse Rate [Monitor] Respiratory Rate 20 Blood Pressure 95/52 L Pulse Oximetry 92 Oxygen Delivery Mechanical Ventilation Fraction of Inspired Oxygen 50 04/30/24 21:00 04/30/24 22:00 04/30/24 22:00 Temperature Pulse Rate 65 65 Pulse Rate [Bilateral Pedal (Dorsalis Pedis) Palpation] Pulse Rate [Monitor] Respiratory Rate 20 20 Blood Pressure 95/52 L Pulse Oximetry Oxygen Delivery Fraction of Inspired Oxygen 04/30/24 22:00 04/30/24 22:00 04/30/24 22:00 Temperature 100 F H Pulse Rate 65 65 65 Pulse Rate [Bilateral Pedal (Dorsalis Pedis) Palpation] Pulse Rate [Monitor] Respiratory Rate 20 Blood Pressure 80/40 L 80/40 L Pulse Oximetry 95 Oxygen Delivery Fraction of Inspired Oxygen 04/30/24 22:25 04/30/24 22:49 04/30/24 23:00 Temperature Pulse Rate 62 61 Pulse Rate [Bilateral Pedal (Dorsalis Pedis) Palpation] Pulse Rate [Monitor] Respiratory Rate 20 Blood Pressure 86/49 L 82/49 L Pulse Oximetry Oxygen Delivery Fraction of Inspired Oxygen 04/30/24 23:00 04/30/24 23:15 04/30/24 23:15 Temperature Pulse Rate 61 63 63 Pulse Rate [Bilateral Pedal (Dorsalis Pedis) Palpation] Pulse Rate [Monitor] Respiratory Rate 20 20 20 Blood Pressure Pulse Oximetry Oxygen Delivery Fraction of Inspired Oxygen 04/30/24 23:45 05/01/24 00:00 05/01/24 00:00 Temperature Pulse Rate 63 65 65 Pulse Rate [Bilateral Pedal (Dorsalis Pedis) Palpation] Pulse Rate [Monitor] Respiratory Rate 20 20 Blood Pressure Pulse Oximetry 92 Oxygen Delivery Mechanical Ventilation Fraction of Inspired Oxygen 60 05/01/24 00:00 05/01/24 00:00 05/01/24 00:00 Temperature Pulse Rate 65 20 L Pulse Rate [Bilateral Pedal (Dorsalis Pedis) Palpation] Pulse Rate [Monitor] 65 Respiratory Rate 20 Blood Pressure 102/55 L Pulse Oximetry 90 Oxygen Delivery Mechanical Ventilation Fraction of Inspired Oxygen 65 05/01/24 00:00 05/01/24 00:00 05/01/24 00:00 Temperature 99.6 F Pulse Rate 65 65 Pulse Rate [Bilateral Pedal (Dorsalis Pedis) Palpation] Pulse Rate [Monitor] Respiratory Rate 20 Blood Pressure 102/55 L 102/55 L Pulse Oximetry 90 Oxygen Delivery Fraction of Inspired Oxygen 65 05/01/24 00:00 05/01/24 02:00 05/01/24 02:00 Temperature Pulse Rate 60 60 60 Pulse Rate [Bilateral Pedal (Dorsalis Pedis) Palpation] Pulse Rate [Monitor] Respiratory Rate 20 20 Blood Pressure 102/55 L Pulse Oximetry Oxygen Delivery Fraction of Inspired Oxygen 05/01/24 02:00 05/01/24 02:00 05/01/24 02:00 Temperature 99.2 F Pulse Rate 60 60 60 Pulse Rate [Bilateral Pedal (Dorsalis Pedis) Palpation] Pulse Rate [Monitor] Respiratory Rate 20 Blood Pressure 94/55 L 94/55 L Pulse Oximetry 94 Oxygen Delivery Fraction of Inspired Oxygen 05/01/24 02:24 05/01/24 02:25 05/01/24 03:09 Temperature Pulse Rate 61 61 55 L Pulse Rate [Bilateral Pedal (Dorsalis Pedis) Palpation] Pulse Rate [Monitor] Respiratory Rate 20 Blood Pressure 86/49 L Pulse Oximetry 94 Oxygen Delivery Mechanical Ventilation Fraction of Inspired Oxygen 65 05/01/24 03:21 05/01/24 03:21 05/01/24 03:22 Temperature Pulse Rate 61 61 61 Pulse Rate [Bilateral Pedal (Dorsalis Pedis) Palpation] Pulse Rate [Monitor] Respiratory Rate 20 20 20 Blood Pressure Pulse Oximetry Oxygen Delivery Fraction of Inspired Oxygen 05/01/24 03:22 05/01/24 03:28 05/01/24 04:00 Temperature Pulse Rate 61 62 62 Pulse Rate [Bilateral Pedal (Dorsalis Pedis) Palpation] Pulse Rate [Monitor] Respiratory Rate 20 20 Blood Pressure 119/60 Pulse Oximetry Oxygen Delivery Fraction of Inspired Oxygen 05/01/24 04:00 05/01/24 04:00 05/01/24 04:00 Temperature Pulse Rate 62 62 62 Pulse Rate [Bilateral Pedal (Dorsalis Pedis) Palpation] Pulse Rate [Monitor] Respiratory Rate 20 Blood Pressure 110/62 110/62 Pulse Oximetry Oxygen Delivery Fraction of Inspired Oxygen 05/01/24 04:00 05/01/24 04:00 05/01/24 04:00 Temperature Pulse Rate 62 63 Pulse Rate [Bilateral Pedal (Dorsalis Pedis) Palpation] Pulse Rate [Monitor] 62 Respiratory Rate 20 Blood Pressure 110/62 Pulse Oximetry 95 Oxygen Delivery Mechanical Ventilation Fraction of Inspired Oxygen 65 05/01/24 04:00 05/01/24 04:00 05/01/24 05:16 Temperature 98.4 F Pulse Rate 62 59 L Pulse Rate [Bilateral Pedal (Dorsalis Pedis) Palpation] Pulse Rate [Monitor] Respiratory Rate 20 Blood Pressure 110/62 Pulse Oximetry 95 94 Oxygen Delivery Mechanical Ventilation Fraction of Inspired Oxygen 65 65 05/01/24 06:00 05/01/24 06:00 05/01/24 06:00 Temperature Pulse Rate 63 63 63 Pulse Rate [Bilateral Pedal (Dorsalis Pedis) Palpation] Pulse Rate [Monitor] Respiratory Rate 20 20 Blood Pressure 114/61 Pulse Oximetry Oxygen Delivery Fraction of Inspired Oxygen 05/01/24 06:00 05/01/24 06:00 05/01/24 06:08 Temperature 98.5 F Pulse Rate 63 63 63 Pulse Rate [Bilateral Pedal (Dorsalis Pedis) Palpation] Pulse Rate [Monitor] Respiratory Rate 20 Blood Pressure 114/61 114/61 Pulse Oximetry 90 Oxygen Delivery Fraction of Inspired Oxygen 05/01/24 07:50 05/01/24 07:50 05/01/24 08:00 Temperature 98.4 F Pulse Rate 58 L 58 L 58 L Pulse Rate [Bilateral Pedal (Dorsalis Pedis) Palpation] Pulse Rate [Monitor] Respiratory Rate 20 20 Blood Pressure 102/58 L Pulse Oximetry 93 94 Oxygen Delivery Mechanical Ventilation Fraction of Inspired Oxygen 65 05/01/24 08:00 05/01/24 08:00 05/01/24 08:00 Temperature Pulse Rate 59 L 59 L 59 L Pulse Rate [Bilateral Pedal (Dorsalis Pedis) Palpation] Pulse Rate [Monitor] Respiratory Rate 20 Blood Pressure 102/58 L 102/58 L Pulse Oximetry Oxygen Delivery Fraction of Inspired Oxygen 05/01/24 08:00 05/01/24 08:09 05/01/24 10:00 Temperature 98.3 F Pulse Rate 59 L 63 58 L Pulse Rate [Bilateral Pedal (Dorsalis Pedis) Palpation] Pulse Rate [Monitor] Respiratory Rate 20 20 20 Blood Pressure 98/59 L Pulse Oximetry 95 Oxygen Delivery Fraction of Inspired Oxygen 05/01/24 10:00 05/01/24 10:00 05/01/24 10:00 Temperature Pulse Rate 59 L 54 L 59 L Pulse Rate [Bilateral Pedal (Dorsalis Pedis) Palpation] Pulse Rate [Monitor] Respiratory Rate 20 Blood Pressure 98/59 L 94/54 L Pulse Oximetry Oxygen Delivery Fraction of Inspired Oxygen 05/01/24 10:00 05/01/24 10:15 05/01/24 10:15 Temperature Pulse Rate 59 L 54 L 54 L Pulse Rate [Bilateral Pedal (Dorsalis Pedis) Palpation] Pulse Rate [Monitor] Respiratory Rate 20 20 Blood Pressure 94/54 L Pulse Oximetry Oxygen Delivery Fraction of Inspired Oxygen 05/01/24 10:15 05/01/24 10:20 Temperature Pulse Rate 54 L 56 L Pulse Rate [Bilateral Pedal (Dorsalis Pedis) Palpation] Pulse Rate [Monitor] Respiratory Rate 20 Blood Pressure Pulse Oximetry 94 Oxygen Delivery Mechanical Ventilation Fraction of Inspired Oxygen 65 Intake/Output Intake/Output: Intake & Output 04/28/24 04/29/24 04/30/24 05/01/24 23:59 23:59 23:59 23:59 Intake Total 2320.0 1603.0 5748.4 1840.5 Output Total 3200 2000 1000 300 Balance -880.0 -397.0 4748.4 1540.5 Meds/Results Medications: Active Medications Generic Name Dose Route Start Last Admin Trade Name Freq PRN Reason Stop Dose Admin Albuterol/Ipratropium 3 ml 04/30/24 14:00 05/01/24 07:50 Ipratropium 0.5 Mg/Albuterol Sulfate 2.5 Mg Ampul.Neb 3 Ml NEBULIZE 3 ml Q6HRT MICHOACANO Administration Dextrose 12.5 gm 04/26/24 02:36 Dextrose 50% 25 Gm/50 Ml Syringe IV PUSH PRN PRN Hypoglycemia Protocol Folic Acid 1 mg 04/30/24 09:00 05/01/24 10:00 Folic Acid 1 Mg/0.2 Ml Inj IV PUSH 1 mg QAM MICHOACANO Administration Glucagon 1 mg 04/26/24 02:36 Glucagon For Inj 1 Mg Vial IM PRN PRN Hypoglycemia Protocol Glucose 15 gm 04/26/24 02:36 Glucose Oral Gel 15 Gm Of Glucse In 37.5 Gm Tube PO PRN PRN Hypoglycemia Protocol Dextrose 1,000 mls @ 100 mls/hr 04/26/24 02:36 Dextrose 5% 1,000 Ml IVPB PRN PRN Hypoglycemia Protocol Doxycycline Hyclate 100 mg in 100 mls @ 100 mls/hr 04/29/24 17:00 05/01/24 06:04 Vibramycin 100 Mg/Ns 100 Ml IVPB Infused Q12H MICHOACANO Infusion Fentanyl Citrate 2,500 mcg in 250 mls @ 0 mls/hr 04/29/24 15:55 05/01/24 10:15 Fentanyl 2,500 Mcg/Ns 250 Ml IV CONT 0 mcg/hr .Q0M MICHOACANO 0 mls/hr Infusion Midazolam HCl 100 mg in 100 mls @ 0 mls/hr 04/29/24 15:55 05/01/24 10:15 Versed 100 Mg/Ns 100 Ml IV CONT 0 mg/hr .Q0M MICHOACANO 0 mls/hr Infusion Cefepime HCl 2 gm in 50 mls @ 100 mls/hr 04/29/24 20:00 05/01/24 11:00 Maxipime 2 Gm/Ns 50 Ml IVPB 100 mls/hr Q8H MICHOACANO Administration Amiodarone HCl/Dextrose 360 mg in 200 mls @ 0 mls/hr 04/30/24 22:54 05/01/24 10:15 Nexterone 360 Mg/D5w 200 Ml IV CONT 0 mg/min .Q0M MICHOACANO 0 mls/hr Infusion Norepinephrine Bitartrate 8 mg in 250 mls @ 3.75 mls/hr 05/01/24 02:55 05/01/24 10:00 Levophed 8 Mg/D5w 250 Ml IV CONT 2 mcg/min .Q24H MICHOACANO 3.75 mls/hr Titration Protocol 2 MCG/MIN Vancomycin HCl 1,750 mg in 500 mls @ 250 mls/hr 05/01/24 07:00 05/01/24 09:08 Vancomycin 1,750 Mg/Ns 500 Ml IVPB Infused Q8H MICHOACANO Infusion Potassium Chloride 100 mls @ 25 mls/hr 05/01/24 10:39 05/01/24 10:58 Kcl 40 Meq/Water 100 Ml IVPB 05/01/24 14:38 25 mls/hr ONCE ONE Administration Magnesium Sulfate 2 gm in 50 mls @ 50 mls/hr 05/01/24 10:39 05/01/24 10:58 Magnesium Sulf 2 Gm/Water 50ml IVPB 05/01/24 11:38 50 mls/hr ONCE ONE Administration Ibuprofen 400 mg 04/26/24 01:26 04/27/24 01:10 Ibuprofen 400 Mg Tablet PO 400 mg Q6H PRN Administration Mild Pain (1-3) or Fever Lactulose 20 gm 04/28/24 19:55 05/01/24 05:01 Lactulose 20 Gm/30 Ml Udc PO 20 gm Q8HR MICHOACANO Administration Multi-Ingred Cream/Lotion/Oil/Oint 1 applic 04/30/24 09:00 05/01/24 09:42 Mineral Oil/White Petrolatum Ointment EACH EYE 1 applic Q12HR MICHOACANO Administration Ondansetron HCl 4 mg 04/26/24 01:26 Ondansetron Inj 4 Mg/2 Ml Vial IV PUSH Q4H PRN Nausea Pantoprazole Sodium 40 mg 04/30/24 09:00 05/01/24 09:42 Pantoprazole Sodium Iv 40 Mg Vial IV PUSH 40 mg DAILY MICHOACANO Administration Rifaximin 550 mg 04/29/24 09:00 05/01/24 09:42 Rifaximin 550 Mg Tablet FEED TUBE 550 mg Q12HR MICHOACANO Administration Sodium Chloride 20 ml 04/30/24 08:26 Central Line Flush IV PUSH PRN PRN after blood draws Sodium Chloride 10 ml 04/30/24 08:26 Central Line Flush IV PUSH PRN PRN with TPN bag changes Sodium Chloride 10 ml 04/30/24 14:00 05/01/24 06:03 Central Line Flush IV PUSH 10 ml Q8HR MICHOACANO Administration Radiology Results: ITS Impressions Cervical Spine CT 04/25/24 19:55 IMPRESSION: No acute fracture or traumatic malalignment in the cervical spine. Abdomen Ultrasound 04/25/24 21:27 IMPRESSION: Cirrhosis with portal hypertension. Cholelithiasis. Pancreatic duct dilation. Chest/Abdomen/Pelvis CTA 04/25/24 21:32 IMPRESSION: Limited evaluation of the segmental and subsegmental pulmonary arteries. No central pulmonary embolus detected. Mild interstitial pulmonary edema. No pleural effusion is detected. Cirrhosis with portal hypertension. Chronic pancreatitis with marked pancreatic duct dilation. Correlate with pancreatic labs. ADDENDUM: 04/29/24 [id number] There is an 11 mm nodule in left lung upper lobe suspicious for primary bronchogenic carcinoma. Noncontrast low-dose chest CT is recommended in [address] 04/28/24 10:30 IMPRESSION: 1. Stable appearance of mild age-related changes including mild diffuse volume loss and mild scattered white matter hypoattenuation consistent with chronic small vessel ischemic disease. No acute intracranial process. Abdomen X-Ray 04/29/24 16:22 IMPRESSION: 1. Nasogastric tube tip in the distal stomach. Chest X-Ray 05/01/24 06:48 Impression: Support tubes, as above. Probable moderate bibasilar pulmonary edema and atelectatic change. Correlate clinically for pneumonia. Small right pleural effusion. Labs Labs: Laboratory Results - last 24 hr 04/30/24 04/30/24 04/30/24 12:15 14:53 14:53 WBC 18.3 H TNP RBC 3.82 L Hgb Hct MCV MCH MCHC RDW Plt Count MPV Immature Gran % (Auto) Neut % (Auto) Lymph % (Auto) [place] % (Auto) Eos % (Auto) Baso % (Auto) Lymph # (Auto) [place] # (Auto) Eos # (Auto) Baso # (Auto) Abs Immat Gran (auto) Absolute Neuts (auto) Absolute Nucleated RBC Nucleated RBC % % Immature Plt Fraction PT INR APTT Fibrinogen D-Dimer Puncture Site ABG pH ABG pCO2 ABG pO2 ABG PO2/FiO2 Ratio ABG HCO3 ABG O2 Saturation ABG O2 Content ABG Base Excess A-a Gradient Oxyhemoglobin Carboxyhemoglobin Methemoglobin Reduced Hemoglobin Total Hemoglobin O2 Delivery Device O2 Liters/Min Minute Volume Vent Rate Vent Mode FiO2 Tidal Volume PEEP Peak Inspir Pressure Pressure Support Sodium Potassium Chloride Carbon Dioxide Anion Gap BUN Creatinine Estim Creat Clear Calc Estimated GFR Glucose POC Capillary Glucose 123 H Lactic Acid Calcium Phosphorus Magnesium Total Bilirubin AST ALT Alkaline Phosphatase Ammonia Total Creatine Kinase C-Reactive Protein Total Protein Albumin Lipase TSH Vancomycin Trough 04/30/24 04/30/24 04/30/24 14:53 14:53 14:53 WBC RBC TNP Hgb 13.4 TNP Hct 38.5 TNP MCV 100.8 H MCH MCHC RDW Plt Count MPV Immature Gran % (Auto) Neut % (Auto) Lymph % (Auto) [place] % (Auto) Eos % (Auto) Baso % (Auto) Lymph # (Auto) [place] # (Auto) Eos # (Auto) Baso # (Auto) Abs Immat Gran (auto) Absolute Neuts (auto) Absolute Nucleated RBC Nucleated RBC % % Immature Plt Fraction PT INR APTT Fibrinogen D-Dimer Puncture Site ABG pH ABG pCO2 ABG pO2 ABG PO2/FiO2 Ratio ABG HCO3 ABG O2 Saturation ABG O2 Content ABG Base Excess A-a Gradient Oxyhemoglobin Carboxyhemoglobin Methemoglobin Reduced Hemoglobin Total Hemoglobin O2 Delivery Device O2 Liters/Min Minute Volume Vent Rate Vent Mode FiO2 Tidal Volume PEEP Peak Inspir Pressure Pressure Support Sodium Potassium Chloride Carbon Dioxide Anion Gap BUN Creatinine Estim Creat Clear Calc Estimated GFR Glucose POC Capillary Glucose Lactic Acid Calcium Phosphorus Magnesium Total Bilirubin AST ALT Alkaline Phosphatase Ammonia Total Creatine Kinase C-Reactive Protein Total Protein Albumin Lipase TSH Vancomycin Trough 04/30/24 04/30/24 04/30/24 14:53 14:53 14:53 WBC RBC Hgb Hct MCV TNP MCH 35.1 H TNP MCHC 34.8 TNP RDW 13.6 Plt Count MPV Immature Gran % (Auto) Neut % (Auto) Lymph % (Auto) [place] % (Auto) Eos % (Auto) Baso % (Auto) Lymph # (Auto) [place] # (Auto) Eos # (Auto) Baso # (Auto) Abs Immat Gran (auto) Absolute Neuts (auto) Absolute Nucleated RBC Nucleated RBC % % Immature Plt Fraction PT INR APTT Fibrinogen D-Dimer Puncture Site ABG pH ABG pCO2 ABG pO2 ABG PO2/FiO2 Ratio ABG HCO3 ABG O2 Saturation ABG O2 Content ABG Base Excess A-a Gradient Oxyhemoglobin Carboxyhemoglobin Methemoglobin Reduced Hemoglobin Total Hemoglobin O2 Delivery Device O2 Liters/Min Minute Volume Vent Rate Vent Mode FiO2 Tidal Volume PEEP Peak Inspir Pressure Pressure Support Sodium Potassium Chloride Carbon Dioxide Anion Gap BUN Creatinine Estim Creat Clear Calc Estimated GFR Glucose POC Capillary Glucose Lactic Acid Calcium Phosphorus Magnesium Total Bilirubin AST ALT Alkaline Phosphatase Ammonia Total Creatine Kinase C-Reactive Protein Total Protein Albumin Lipase TSH Vancomycin Trough 04/30/24 04/30/24 04/30/24 14:53 14:53 14:53 WBC RBC Hgb Hct MCV MCH MCHC RDW TNP Plt Count 100 L TNP MPV 10.6 H TNP Immature Gran % (Auto) Neut % (Auto) Lymph % (Auto) [place] % (Auto) Eos % (Auto) Baso % (Auto) Lymph # (Auto) [place] # (Auto) Eos # (Auto) Baso # (Auto) Abs Immat Gran (auto) Absolute Neuts (auto) Absolute Nucleated RBC Nucleated RBC % % Immature Plt Fraction 4.2 PT 22.7 H INR 2.0 APTT 45.7 H Fibrinogen 275 D-Dimer 1.00 H Puncture Site ABG pH ABG pCO2 ABG pO2 ABG PO2/FiO2 Ratio ABG HCO3 ABG O2 Saturation ABG O2 Content ABG Base Excess A-a Gradient Oxyhemoglobin Carboxyhemoglobin Methemoglobin Reduced Hemoglobin Total Hemoglobin O2 Delivery Device O2 Liters/Min Minute Volume Vent Rate Vent Mode FiO2 Tidal Volume PEEP Peak Inspir Pressure Pressure Support Sodium Potassium Chloride Carbon Dioxide Anion Gap BUN Creatinine Estim Creat Clear Calc Estimated GFR Glucose POC Capillary Glucose Lactic Acid Calcium Phosphorus Magnesium 1.8 Total Bilirubin AST ALT Alkaline Phosphatase Ammonia Total Creatine Kinase C-Reactive Protein Total Protein Albumin Lipase TSH Vancomycin Trough 04/30/24 04/30/24 05/01/24 14:55 18:23 01:51 WBC RBC Hgb Hct MCV MCH MCHC RDW Plt Count MPV Immature Gran % (Auto) Neut % (Auto) Lymph % (Auto) [place] % (Auto) Eos % (Auto) Baso % (Auto) Lymph # (Auto) [place] # (Auto) Eos # (Auto) Baso # (Auto) Abs Immat Gran (auto) Absolute Neuts (auto) Absolute Nucleated RBC Nucleated RBC % % Immature Plt Fraction PT INR APTT Fibrinogen D-Dimer Puncture Site ABG pH ABG pCO2 ABG pO2 ABG PO2/FiO2 Ratio ABG HCO3 ABG O2 Saturation ABG O2 Content ABG Base Excess A-a Gradient Oxyhemoglobin Carboxyhemoglobin Methemoglobin Reduced Hemoglobin Total Hemoglobin O2 Delivery Device O2 Liters/Min Minute Volume Vent Rate Vent Mode FiO2 Tidal Volume PEEP Peak Inspir Pressure Pressure Support Sodium 136 L Potassium 3.7 Chloride 109 H Carbon Dioxide 23 Anion Gap 4 BUN 12 Creatinine 0.50 L Estim Creat Clear Calc 96 Estimated GFR > 60 Glucose 118 H POC Capillary Glucose 124 H 123 H Lactic Acid Calcium 8.3 L Phosphorus Magnesium Total Bilirubin AST ALT Alkaline Phosphatase Ammonia Total Creatine Kinase C-Reactive Protein Total Protein Albumin Lipase TSH Vancomycin Trough 05/01/24 05/01/24 05/01/24 05:14 05:31 05:40 WBC 15.9 H RBC 3.53 L Hgb 11.9 L Hct 36.1 L MCV 102.3 H MCH 33.7 MCHC 33.0 RDW 13.5 Plt Count 102 L MPV 11.1 H Immature Gran % (Auto) 0.8 H Neut % (Auto) 75.0 H Lymph % (Auto) 8.8 L [place] % (Auto) 12.1 H Eos % (Auto) 2.5 Baso % (Auto) 0.8 Lymph # (Auto) 1.39 [place] # (Auto) 1.9 H Eos # (Auto) 0.4 H Baso # (Auto) 0.1 Abs Immat Gran (auto) 0.12 H Absolute Neuts (auto) 11.9 H Absolute Nucleated RBC 0.000 Nucleated RBC % 0.0 % Immature Plt Fraction 5.8 PT 25.0 H INR 2.2 APTT 48.7 H Fibrinogen D-Dimer Puncture Site Right radial ABG pH 7.393 ABG pCO2 34.7 L ABG pO2 73.7 L ABG PO2/FiO2 Ratio 1.13 ABG HCO3 20.7 L ABG O2 Saturation 94.9 L ABG O2 Content 16.8 ABG Base Excess -3.5 A-a Gradient 352.0 Oxyhemoglobin 93.9 Carboxyhemoglobin 0.1 Methemoglobin 0.3 Reduced Hemoglobin 5.7 H Total Hemoglobin 12.7 O2 Delivery Device Ventilator O2 Liters/Min Not Reportable Minute Volume Not Reportable Vent Rate 20 Vent Mode Cmv FiO2 65 Tidal Volume 400 PEEP 8 Peak Inspir Pressure Not Reportable Pressure Support Not Reportable Sodium 137 Potassium 3.3 L Chloride 107 Carbon Dioxide 22 Anion Gap 8 BUN 13 Creatinine 0.50 L Estim Creat Clear Calc 96 Estimated GFR > 60 Glucose 127 H POC Capillary Glucose Lactic Acid 1.4 Calcium 8.6 Phosphorus 2.1 L Magnesium 1.6 Total Bilirubin 3.6 H AST 40 H ALT 20 Alkaline Phosphatase 91 Ammonia 44 H Total Creatine Kinase 257 H C-Reactive Protein 5.9 H Total Protein 7.0 Albumin 3.2 L Lipase < 10 L TSH 2.560 Vancomycin Trough 13.6 05/01/24 06:59 WBC RBC Hgb Hct MCV MCH MCHC RDW Plt Count MPV Immature Gran % (Auto) Neut % (Auto) Lymph % (Auto) [place] % (Auto) Eos % (Auto) Baso % (Auto) Lymph # (Auto) [place] # (Auto) Eos # (Auto) Baso # (Auto) Abs Immat Gran (auto) Absolute Neuts (auto) Absolute Nucleated RBC Nucleated RBC % % Immature Plt Fraction PT INR APTT Fibrinogen D-Dimer Puncture Site ABG pH ABG pCO2 ABG pO2 ABG PO2/FiO2 Ratio ABG HCO3 ABG O2 Saturation ABG O2 Content ABG Base Excess A-a Gradient Oxyhemoglobin Carboxyhemoglobin Methemoglobin Reduced Hemoglobin Total Hemoglobin O2 Delivery Device O2 Liters/Min Minute Volume Vent Rate Vent Mode FiO2 Tidal Volume PEEP Peak Inspir Pressure Pressure Support Sodium Potassium Chloride Carbon Dioxide Anion Gap BUN Creatinine Estim Creat Clear Calc Estimated GFR Glucose POC Capillary Glucose 127 H Lactic Acid Calcium Phosphorus Magnesium Total Bilirubin AST ALT Alkaline Phosphatase Ammonia Total Creatine Kinase C-Reactive Protein Total Protein Albumin Lipase TSH Vancomycin Trough Quality VTE Prophylaxis VTE prophylaxis: mechanical ordered
--- NOTE | 2024-05-01 11:58 | WPDGIPROGNO ---
Progress Note: A&P Assessment and Plan (1) Alcoholic cirrhosis: Qualifiers: Ascites presence: unspecified Qualified Code(s): K70.30 - Alcoholic cirrhosis of liver without ascites Code(s): K70.30 - Alcoholic cirrhosis of liver without ascites Status: Acute Assessment and Plan: still sick and intubated, on medical support receiving lactulose, ammonia down to 40 bilirubin down to 3 but elevated inr 2.2 higher discriminant function 54 (2) Hepatic encephalopathy: Code(s): K76.82 - Hepatic encephalopathy Status: Acute Assessment and Plan: multifactorial (3) Chronic pancreatitis: Code(s): K86.1 - Other chronic pancreatitis Status: Acute Assessment and Plan: based on imaging probably will need MRCP as outpatient in few months (4) Pancreatic duct dilated: Code(s): K86.89 - Other specified diseases of pancreas Status: Acute (5) Elevated liver enzymes: Code(s): R74.8 - Abnormal levels of other serum enzymes Status: Acute Assessment and Plan: monitor (6) Acute hypoxic respiratory failure: Code(s): J96.01 - Acute respiratory failure with hypoxia Status: Acute Assessment and Plan: by primary (7) Hospital-acquired pneumonia: Code(s): J18.9 - Pneumonia, unspecified organism; Y95 - Nosocomial condition Status: Acute Assessment and Plan: on abx (8) Atrial fibrillation with rapid ventricular response: Code(s): I48.91 - Unspecified atrial fibrillation Status: Acute Assessment and Plan: treated (9) Coagulopathy: Code(s): D68.9 - Coagulation defect, unspecified Status: Acute Assessment and Plan: some bleeding from mouth elevated inr from decompensated cirrhosis driven a high discriminant function- s/p vit K Subjective Date/time seen: 05/01/24 11:58 Interval history: yesterday with afib with rvc on amiodarone gtt that was discontinued still intubated and obtunded, on lactulose with loose stools Review of Systems Review of Systems: All systems reviewed & are unremarkable except as noted in HPI and below Exam Narrative: General: Intubated and sedated in no acute distress, chronically ill appearing HEENT:? Pupils equal and reactive, sclera is icteric, NGT in place Neck:? Supple Respiratory:? Coarse breath sounds bilaterally, decreased at bases, no wheezing Cardiac:? S1-S2 normal, regular rate and rhythm Abdomen:? Soft, nontender, nondistended, hypoactive bowel sound Extremities:? No edema, palpable pedal pulses, lower extremities have muscular rigidity Neuro:? Patient is sedated, intubated, does not open her eyes or follow simple commands, does withdraw to pain in all extremities Skin:? Spider nevi on the upper part of her torso Psych:? Unable to assess at this time Objective Data Vital Signs Vital Signs: Vital Signs - 24 hr 04/30/24 12:00 04/30/24 12:00 04/30/24 12:00 Temperature 99.9 F H Pulse Rate 92 92 Pulse Rate [Monitor] Respiratory Rate 17 17 Blood Pressure 122/64 Pulse Oximetry 97 97 Oxygen Delivery Mechanical Ventilation Fraction of Inspired Oxygen 60 60 04/30/24 12:00 04/30/24 12:00 04/30/24 12:00 Temperature Pulse Rate 93 93 93 Pulse Rate [Monitor] Respiratory Rate 22 H 22 H Blood Pressure Pulse Oximetry Oxygen Delivery Fraction of Inspired Oxygen 04/30/24 14:00 04/30/24 14:00 04/30/24 14:00 Temperature Pulse Rate 90 90 90 Pulse Rate [Monitor] Respiratory Rate 21 H 21 H Blood Pressure Pulse Oximetry Oxygen Delivery Fraction of Inspired Oxygen 04/30/24 14:00 04/30/24 14:00 04/30/24 14:01 Temperature 99.9 F H 99.9 F H 99.9 F H Pulse Rate 89 92 90 Pulse Rate [Monitor] Respiratory Rate 20 21 H 23 H Blood Pressure 99/65 L 99/65 L Pulse Oximetry 97 97 97 Oxygen Delivery Fraction of Inspired Oxygen 04/30/24 14:23 04/30/24 14:24 04/30/24 14:30 Temperature Pulse Rate 89 97 91 Pulse Rate [Monitor] Respiratory Rate 20 21 H Blood Pressure Pulse Oximetry 97 Oxygen Delivery Mechanical Ventilation Fraction of Inspired Oxygen 60 04/30/24 14:31 04/30/24 14:51 04/30/24 14:58 Temperature 99.7 F H 99.6 F Pulse Rate 92 83 83 Pulse Rate [Monitor] Respiratory Rate 22 H 18 Blood Pressure 122/68 108/62 Pulse Oximetry 97 95 Oxygen Delivery Fraction of Inspired Oxygen 04/30/24 15:00 04/30/24 15:01 04/30/24 15:31 Temperature 99.7 F H 99.7 F H 99.8 F H Pulse Rate 80 82 78 Pulse Rate [Monitor] Respiratory Rate 18 23 H 21 H Blood Pressure 109/63 100/55 L Pulse Oximetry 95 96 94 Oxygen Delivery Fraction of Inspired Oxygen 04/30/24 15:50 04/30/24 16:00 04/30/24 16:00 Temperature 99.7 F H Pulse Rate 83 81 Pulse Rate [Monitor] Respiratory Rate 22 H 24 H Blood Pressure 119/67 Pulse Oximetry 92 Oxygen Delivery Fraction of Inspired Oxygen 50 04/30/24 16:00 04/30/24 16:00 04/30/24 16:00 Temperature Pulse Rate 81 82 Pulse Rate [Monitor] Respiratory Rate 24 H Blood Pressure Pulse Oximetry 93 Oxygen Delivery Mechanical Ventilation Fraction of Inspired Oxygen 50 04/30/24 16:01 04/30/24 16:06 04/30/24 16:31 Temperature 99.7 F H 99.8 F H Pulse Rate 89 81 154 H Pulse Rate [Monitor] Respiratory Rate 20 9 L Blood Pressure 108/63 Pulse Oximetry 93 94 Oxygen Delivery Fraction of Inspired Oxygen 04/30/24 16:48 04/30/24 16:48 04/30/24 16:56 Temperature Pulse Rate 75 76 79 Pulse Rate [Monitor] Respiratory Rate Blood Pressure 108/63 108/63 Pulse Oximetry 94 Oxygen Delivery Mechanical Ventilation Fraction of Inspired Oxygen 50 04/30/24 16:59 04/30/24 17:00 04/30/24 17:01 Temperature 99.9 F H 99.9 F H Pulse Rate 67 78 130 H Pulse Rate [Monitor] Respiratory Rate 18 20 Blood Pressure 97/58 L 97/58 L Pulse Oximetry 91 91 Oxygen Delivery Fraction of Inspired Oxygen 04/30/24 17:30 04/30/24 17:47 04/30/24 18:00 Temperature 99.8 F H 99.8 F H Pulse Rate 67 66 68 Pulse Rate [Monitor] Respiratory Rate 21 H 18 Blood Pressure 87/56 L 92/57 L Pulse Oximetry 92 91 Oxygen Delivery Fraction of Inspired Oxygen 04/30/24 18:00 04/30/24 18:00 04/30/24 18:00 Temperature 99.8 F H Pulse Rate 68 68 68 Pulse Rate [Monitor] Respiratory Rate 20 24 H 24 H Blood Pressure 97/54 L Pulse Oximetry 92 Oxygen Delivery Fraction of Inspired Oxygen 04/30/24 18:00 04/30/24 18:01 04/30/24 20:00 Temperature 99.8 F H Pulse Rate 68 68 67 Pulse Rate [Monitor] Respiratory Rate 20 20 Blood Pressure 97/54 L Pulse Oximetry 92 Oxygen Delivery Fraction of Inspired Oxygen 04/30/24 20:00 04/30/24 20:00 04/30/24 20:00 Temperature Pulse Rate 67 67 Pulse Rate [Monitor] 67 Respiratory Rate 20 Blood Pressure 84/56 L 84/56 L Pulse Oximetry Oxygen Delivery Fraction of Inspired Oxygen 04/30/24 20:00 04/30/24 20:00 04/30/24 20:00 Temperature 100.6 F H Pulse Rate 67 67 Pulse Rate [Monitor] Respiratory Rate 20 20 Blood Pressure 84/56 L Pulse Oximetry 92 92 Oxygen Delivery Mechanical Ventilation Fraction of Inspired Oxygen 60 60 04/30/24 20:00 04/30/24 20:02 04/30/24 20:02 Temperature Pulse Rate 66 66 66 Pulse Rate [Monitor] Respiratory Rate 20 Blood Pressure Pulse Oximetry 92 Oxygen Delivery Mechanical Ventilation Fraction of Inspired Oxygen 50 04/30/24 20:11 04/30/24 20:30 04/30/24 21:00 Temperature Pulse Rate 69 Pulse Rate [Monitor] Respiratory Rate 20 Blood Pressure 95/52 L 95/52 L Pulse Oximetry Oxygen Delivery Fraction of Inspired Oxygen 04/30/24 22:00 04/30/24 22:00 04/30/24 22:00 Temperature Pulse Rate 65 65 65 Pulse Rate [Monitor] Respiratory Rate 20 20 Blood Pressure 80/40 L Pulse Oximetry Oxygen Delivery Fraction of Inspired Oxygen 04/30/24 22:00 04/30/24 22:00 04/30/24 22:25 Temperature 100 F H Pulse Rate 65 65 Pulse Rate [Monitor] Respiratory Rate 20 Blood Pressure 80/40 L 86/49 L Pulse Oximetry 95 Oxygen Delivery Fraction of Inspired Oxygen 04/30/24 22:49 04/30/24 23:00 04/30/24 23:00 Temperature Pulse Rate 62 61 61 Pulse Rate [Monitor] Respiratory Rate 20 20 Blood Pressure 82/49 L Pulse Oximetry Oxygen Delivery Fraction of Inspired Oxygen 04/30/24 23:15 04/30/24 23:15 04/30/24 23:45 Temperature Pulse Rate 63 63 63 Pulse Rate [Monitor] Respiratory Rate 20 20 Blood Pressure Pulse Oximetry 92 Oxygen Delivery Mechanical Ventilation Fraction of Inspired Oxygen 60 05/01/24 00:00 05/01/24 00:00 05/01/24 00:00 Temperature Pulse Rate 65 65 Pulse Rate [Monitor] 65 Respiratory Rate 20 20 Blood Pressure 102/55 L Pulse Oximetry Oxygen Delivery Fraction of Inspired Oxygen 05/01/24 00:00 05/01/24 00:00 05/01/24 00:00 Temperature Pulse Rate 65 20 L Pulse Rate [Monitor] Respiratory Rate 20 Blood Pressure Pulse Oximetry 90 Oxygen Delivery Mechanical Ventilation Fraction of Inspired Oxygen 65 65 05/01/24 00:00 05/01/24 00:00 05/01/24 00:00 Temperature 99.6 F Pulse Rate 65 65 60 Pulse Rate [Monitor] Respiratory Rate 20 Blood Pressure 102/55 L 102/55 L 102/55 L Pulse Oximetry 90 Oxygen Delivery Fraction of Inspired Oxygen 05/01/24 02:00 05/01/24 02:00 05/01/24 02:00 Temperature Pulse Rate 60 60 60 Pulse Rate [Monitor] Respiratory Rate 20 20 Blood Pressure Pulse Oximetry Oxygen Delivery Fraction of Inspired Oxygen 05/01/24 02:00 05/01/24 02:00 05/01/24 02:24 Temperature 99.2 F Pulse Rate 60 60 61 Pulse Rate [Monitor] Respiratory Rate 20 20 Blood Pressure 94/55 L 94/55 L Pulse Oximetry 94 Oxygen Delivery Fraction of Inspired Oxygen 05/01/24 02:25 05/01/24 03:09 05/01/24 03:21 Temperature Pulse Rate 61 55 L 61 Pulse Rate [Monitor] Respiratory Rate 20 Blood Pressure 86/49 L Pulse Oximetry 94 Oxygen Delivery Mechanical Ventilation Fraction of Inspired Oxygen 65 05/01/24 03:21 05/01/24 03:22 05/01/24 03:22 Temperature Pulse Rate 61 61 61 Pulse Rate [Monitor] Respiratory Rate 20 20 20 Blood Pressure Pulse Oximetry Oxygen Delivery Fraction of Inspired Oxygen 05/01/24 03:28 05/01/24 04:00 05/01/24 04:00 Temperature Pulse Rate 62 62 62 Pulse Rate [Monitor] Respiratory Rate 20 20 Blood Pressure 119/60 Pulse Oximetry Oxygen Delivery Fraction of Inspired Oxygen 05/01/24 04:00 05/01/24 04:00 05/01/24 04:00 Temperature Pulse Rate 62 62 Pulse Rate [Monitor] 62 Respiratory Rate Blood Pressure 110/62 110/62 110/62 Pulse Oximetry Oxygen Delivery Fraction of Inspired Oxygen 05/01/24 04:00 05/01/24 04:00 05/01/24 04:00 Temperature Pulse Rate 62 63 Pulse Rate [Monitor] Respiratory Rate 20 Blood Pressure Pulse Oximetry 95 Oxygen Delivery Mechanical Ventilation Fraction of Inspired Oxygen 65 65 05/01/24 04:00 05/01/24 05:16 05/01/24 06:00 Temperature 98.4 F Pulse Rate 62 59 L 63 Pulse Rate [Monitor] Respiratory Rate 20 Blood Pressure 110/62 114/61 Pulse Oximetry 95 94 Oxygen Delivery Mechanical Ventilation Fraction of Inspired Oxygen 65 05/01/24 06:00 05/01/24 06:00 05/01/24 06:00 Temperature Pulse Rate 63 63 63 Pulse Rate [Monitor] Respiratory Rate 20 20 Blood Pressure Pulse Oximetry Oxygen Delivery Fraction of Inspired Oxygen 05/01/24 06:00 05/01/24 06:08 05/01/24 07:50 Temperature 98.5 F Pulse Rate 63 63 58 L Pulse Rate [Monitor] Respiratory Rate 20 Blood Pressure 114/61 114/61 Pulse Oximetry 90 93 Oxygen Delivery Mechanical Ventilation Fraction of Inspired Oxygen 65 05/01/24 07:50 05/01/24 08:00 05/01/24 08:00 Temperature 98.4 F Pulse Rate 58 L 58 L 59 L Pulse Rate [Monitor] Respiratory Rate 20 20 Blood Pressure 102/58 L 102/58 L Pulse Oximetry 94 Oxygen Delivery Fraction of Inspired Oxygen 05/01/24 08:00 05/01/24 08:00 05/01/24 08:00 Temperature Pulse Rate 59 L 59 L 59 L Pulse Rate [Monitor] Respiratory Rate 20 20 Blood Pressure 102/58 L Pulse Oximetry Oxygen Delivery Fraction of Inspired Oxygen 05/01/24 08:00 05/01/24 08:00 05/01/24 08:00 Temperature Pulse Rate Pulse Rate [Monitor] 59 L Respiratory Rate 20 Blood Pressure Pulse Oximetry 93 Oxygen Delivery Mechanical Ventilation Fraction of Inspired Oxygen 65 65 05/01/24 08:09 05/01/24 10:00 05/01/24 10:00 Temperature 98.3 F Pulse Rate 63 58 L 59 L Pulse Rate [Monitor] Respiratory Rate 20 20 Blood Pressure 98/59 L 98/59 L Pulse Oximetry 95 Oxygen Delivery Fraction of Inspired Oxygen 05/01/24 10:00 05/01/24 10:00 05/01/24 10:00 Temperature Pulse Rate 54 L 59 L 59 L Pulse Rate [Monitor] Respiratory Rate 20 20 Blood Pressure 94/54 L Pulse Oximetry Oxygen Delivery Fraction of Inspired Oxygen 05/01/24 10:15 05/01/24 10:15 05/01/24 10:15 Temperature Pulse Rate 54 L 54 L 54 L Pulse Rate [Monitor] Respiratory Rate 20 20 Blood Pressure 94/54 L Pulse Oximetry Oxygen Delivery Fraction of Inspired Oxygen 05/01/24 10:20 Temperature Pulse Rate 56 L Pulse Rate [Monitor] Respiratory Rate Blood Pressure Pulse Oximetry 94 Oxygen Delivery Mechanical Ventilation Fraction of Inspired Oxygen 65 Intake/Output Intake/Output: Intake & Output 04/28/24 04/29/24 04/30/24 05/01/24 23:59 23:59 23:59 23:59 Intake Total 2320.0 1603.0 5748.4 1840.5 Output Total 3200 2000 1000 300 Balance -880.0 -397.0 4748.4 1540.5 Meds/Results Medications: Active Medications Generic Name Dose Route Start Last Admin Trade Name Freq PRN Reason Stop Dose Admin Albuterol/Ipratropium 3 ml 04/30/24 14:00 05/01/24 07:50 Ipratropium 0.5 Mg/Albuterol Sulfate 2.5 Mg Ampul.Neb 3 Ml NEBULIZE 3 ml Q6HRT MICHOACANO Administration Dextrose 12.5 gm 04/26/24 02:36 Dextrose 50% 25 Gm/50 Ml Syringe IV PUSH PRN PRN Hypoglycemia Protocol Folic Acid 1 mg 04/30/24 09:00 05/01/24 10:00 Folic Acid 1 Mg/0.2 Ml Inj IV PUSH 1 mg QAM MICHOACANO Administration Glucagon 1 mg 04/26/24 02:36 Glucagon For Inj 1 Mg Vial IM PRN PRN Hypoglycemia Protocol Glucose 15 gm 04/26/24 02:36 Glucose Oral Gel 15 Gm Of Glucse In 37.5 Gm Tube PO PRN PRN Hypoglycemia Protocol Dextrose 1,000 mls @ 100 mls/hr 04/26/24 02:36 Dextrose 5% 1,000 Ml IVPB PRN PRN Hypoglycemia Protocol Doxycycline Hyclate 100 mg in 100 mls @ 100 mls/hr 04/29/24 17:00 05/01/24 06:04 Vibramycin 100 Mg/Ns 100 Ml IVPB Infused Q12H MICHOACANO Infusion Fentanyl Citrate 2,500 mcg in 250 mls @ 0 mls/hr 04/29/24 15:55 05/01/24 10:15 Fentanyl 2,500 Mcg/Ns 250 Ml IV CONT 0 mcg/hr .Q0M MICHOACANO 0 mls/hr Infusion Midazolam HCl 100 mg in 100 mls @ 0 mls/hr 04/29/24 15:55 05/01/24 10:15 Versed 100 Mg/Ns 100 Ml IV CONT 0 mg/hr .Q0M MICHOACANO 0 mls/hr Infusion Cefepime HCl 2 gm in 50 mls @ 100 mls/hr 04/29/24 20:00 05/01/24 11:00 Maxipime 2 Gm/Ns 50 Ml IVPB 100 mls/hr Q8H MICHOACANO Administration Amiodarone HCl/Dextrose 360 mg in 200 mls @ 0 mls/hr 04/30/24 22:54 05/01/24 10:15 Nexterone 360 Mg/D5w 200 Ml IV CONT 0 mg/min .Q0M MICHOACANO 0 mls/hr Infusion Norepinephrine Bitartrate 8 mg in 250 mls @ 3.75 mls/hr 05/01/24 02:55 05/01/24 10:00 Levophed 8 Mg/D5w 250 Ml IV CONT 2 mcg/min .Q24H MICHOACANO 3.75 mls/hr Titration Protocol 2 MCG/MIN Vancomycin HCl 1,750 mg in 500 mls @ 250 mls/hr 05/01/24 07:00 05/01/24 09:08 Vancomycin 1,750 Mg/Ns 500 Ml IVPB Infused Q8H MICHOACANO Infusion Potassium Chloride 100 mls @ 25 mls/hr 05/01/24 10:39 05/01/24 10:58 Kcl 40 Meq/Water 100 Ml IVPB 05/01/24 14:38 25 mls/hr ONCE ONE Administration Ibuprofen 400 mg 04/26/24 01:26 04/27/24 01:10 Ibuprofen 400 Mg Tablet PO 400 mg Q6H PRN Administration Mild Pain (1-3) or Fever Lactulose 20 gm 04/28/24 19:55 05/01/24 05:01 Lactulose 20 Gm/30 Ml Udc PO 20 gm Q8HR MICHOACANO Administration Multi-Ingred Cream/Lotion/Oil/Oint 1 applic 04/30/24 09:00 05/01/24 09:42 Mineral Oil/White Petrolatum Ointment EACH EYE 1 applic Q12HR MICHOACANO Administration Ondansetron HCl 4 mg 04/26/24 01:26 Ondansetron Inj 4 Mg/2 Ml Vial IV PUSH Q4H PRN Nausea Pantoprazole Sodium 40 mg 04/30/24 09:00 05/01/24 09:42 Pantoprazole Sodium Iv 40 Mg Vial IV PUSH 40 mg DAILY MICHOACANO Administration Rifaximin 550 mg 04/29/24 09:00 05/01/24 09:42 Rifaximin 550 Mg Tablet FEED TUBE 550 mg Q12HR MICHOACANO Administration Sodium Chloride 20 ml 04/30/24 08:26 Central Line Flush IV PUSH PRN PRN after blood draws Sodium Chloride 10 ml 04/30/24 08:26 Central Line Flush IV PUSH PRN PRN with TPN bag changes Sodium Chloride 10 ml 04/30/24 14:00 05/01/24 06:03 Central Line Flush IV PUSH 10 ml Q8HR MICHOACANO Administration Radiology Results: ITS Impressions Cervical Spine CT 04/25/24 19:55 IMPRESSION: No acute fracture or traumatic malalignment in the cervical spine. Abdomen Ultrasound 04/25/24 21:27 IMPRESSION: Cirrhosis with portal hypertension. Cholelithiasis. Pancreatic duct dilation. Chest/Abdomen/Pelvis CTA 04/25/24 21:32 IMPRESSION: Limited evaluation of the segmental and subsegmental pulmonary arteries. No central pulmonary embolus detected. Mild interstitial pulmonary edema. No pleural effusion is detected. Cirrhosis with portal hypertension. Chronic pancreatitis with marked pancreatic duct dilation. Correlate with pancreatic labs. ADDENDUM: 04/29/24 1515 There is an 11 mm nodule in left lung upper lobe suspicious for primary bronchogenic carcinoma. Noncontrast low-dose chest CT is recommended in [address] 04/28/24 10:30 IMPRESSION: 1. Stable appearance of mild age-related changes including mild diffuse volume loss and mild scattered white matter hypoattenuation consistent with chronic small vessel ischemic disease. No acute intracranial process. Abdomen X-Ray 04/29/24 16:22 IMPRESSION: 1. Nasogastric tube tip in the distal stomach. Chest X-Ray 05/01/24 06:48 Impression: Support tubes, as above. Probable moderate bibasilar pulmonary edema and atelectatic change. Correlate clinically for pneumonia. Small right pleural effusion. Labs Labs: Laboratory Results - last 24 hr 04/30/24 04/30/24 04/30/24 12:15 14:53 14:53 WBC 18.3 H TNP RBC 3.82 L Hgb Hct MCV MCH MCHC RDW Plt Count MPV Immature Gran % (Auto) Neut % (Auto) Lymph % (Auto) [place] % (Auto) Eos % (Auto) Baso % (Auto) Lymph # (Auto) [place] # (Auto) Eos # (Auto) Baso # (Auto) Abs Immat Gran (auto) Absolute Neuts (auto) Absolute Nucleated RBC Nucleated RBC % % Immature Plt Fraction PT INR APTT Fibrinogen D-Dimer Puncture Site ABG pH ABG pCO2 ABG pO2 ABG PO2/FiO2 Ratio ABG HCO3 ABG O2 Saturation ABG O2 Content ABG Base Excess A-a Gradient Oxyhemoglobin Carboxyhemoglobin Methemoglobin Reduced Hemoglobin Total Hemoglobin O2 Delivery Device O2 Liters/Min Minute Volume Vent Rate Vent Mode FiO2 Tidal Volume PEEP Peak Inspir Pressure Pressure Support Sodium Potassium Chloride Carbon Dioxide Anion Gap BUN Creatinine Estim Creat Clear Calc Estimated GFR Glucose POC Capillary Glucose 123 H Lactic Acid Calcium Phosphorus Magnesium Total Bilirubin AST ALT Alkaline Phosphatase Ammonia Total Creatine Kinase C-Reactive Protein Total Protein Albumin Lipase TSH Vancomycin Trough 04/30/24 04/30/24 04/30/24 14:53 14:53 14:53 WBC RBC TNP Hgb 13.4 TNP Hct 38.5 TNP MCV 100.8 H MCH MCHC RDW Plt Count MPV Immature Gran % (Auto) Neut % (Auto) Lymph % (Auto) [place] % (Auto) Eos % (Auto) Baso % (Auto) Lymph # (Auto) [place] # (Auto) Eos # (Auto) Baso # (Auto) Abs Immat Gran (auto) Absolute Neuts (auto) Absolute Nucleated RBC Nucleated RBC % % Immature Plt Fraction PT INR APTT Fibrinogen D-Dimer Puncture Site ABG pH ABG pCO2 ABG pO2 ABG PO2/FiO2 Ratio ABG HCO3 ABG O2 Saturation ABG O2 Content ABG Base Excess A-a Gradient Oxyhemoglobin Carboxyhemoglobin Methemoglobin Reduced Hemoglobin Total Hemoglobin O2 Delivery Device O2 Liters/Min Minute Volume Vent Rate Vent Mode FiO2 Tidal Volume PEEP Peak Inspir Pressure Pressure Support Sodium Potassium Chloride Carbon Dioxide Anion Gap BUN Creatinine Estim Creat Clear Calc Estimated GFR Glucose POC Capillary Glucose Lactic Acid Calcium Phosphorus Magnesium Total Bilirubin AST ALT Alkaline Phosphatase Ammonia Total Creatine Kinase C-Reactive Protein Total Protein Albumin Lipase TSH Vancomycin Trough 04/30/24 04/30/24 04/30/24 14:53 14:53 14:53 WBC RBC Hgb Hct MCV TNP MCH 35.1 H TNP MCHC 34.8 TNP RDW 13.6 Plt Count MPV Immature Gran % (Auto) Neut % (Auto) Lymph % (Auto) [place] % (Auto) Eos % (Auto) Baso % (Auto) Lymph # (Auto) [place] # (Auto) Eos # (Auto) Baso # (Auto) Abs Immat Gran (auto) Absolute Neuts (auto) Absolute Nucleated RBC Nucleated RBC % % Immature Plt Fraction PT INR APTT Fibrinogen D-Dimer Puncture Site ABG pH ABG pCO2 ABG pO2 ABG PO2/FiO2 Ratio ABG HCO3 ABG O2 Saturation ABG O2 Content ABG Base Excess A-a Gradient Oxyhemoglobin Carboxyhemoglobin Methemoglobin Reduced Hemoglobin Total Hemoglobin O2 Delivery Device O2 Liters/Min Minute Volume Vent Rate Vent Mode FiO2 Tidal Volume PEEP Peak Inspir Pressure Pressure Support Sodium Potassium Chloride Carbon Dioxide Anion Gap BUN Creatinine Estim Creat Clear Calc Estimated GFR Glucose POC Capillary Glucose Lactic Acid Calcium Phosphorus Magnesium Total Bilirubin AST ALT Alkaline Phosphatase Ammonia Total Creatine Kinase C-Reactive Protein Total Protein Albumin Lipase TSH Vancomycin Trough 04/30/24 04/30/24 04/30/24 14:53 14:53 14:53 WBC RBC Hgb Hct MCV MCH MCHC RDW TNP Plt Count 100 L TNP MPV 10.6 H TNP Immature Gran % (Auto) Neut % (Auto) Lymph % (Auto) [place] % (Auto) Eos % (Auto) Baso % (Auto) Lymph # (Auto) [place] # (Auto) Eos # (Auto) Baso # (Auto) Abs Immat Gran (auto) Absolute Neuts (auto) Absolute Nucleated RBC Nucleated RBC % % Immature Plt Fraction 4.2 PT 22.7 H INR 2.0 APTT 45.7 H Fibrinogen 275 D-Dimer 1.00 H Puncture Site ABG pH ABG pCO2 ABG pO2 ABG PO2/FiO2 Ratio ABG HCO3 ABG O2 Saturation ABG O2 Content ABG Base Excess A-a Gradient Oxyhemoglobin Carboxyhemoglobin Methemoglobin Reduced Hemoglobin Total Hemoglobin O2 Delivery Device O2 Liters/Min Minute Volume Vent Rate Vent Mode FiO2 Tidal Volume PEEP Peak Inspir Pressure Pressure Support Sodium Potassium Chloride Carbon Dioxide Anion Gap BUN Creatinine Estim Creat Clear Calc Estimated GFR Glucose POC Capillary Glucose Lactic Acid Calcium Phosphorus Magnesium 1.8 Total Bilirubin AST ALT Alkaline Phosphatase Ammonia Total Creatine Kinase C-Reactive Protein Total Protein Albumin Lipase TSH Vancomycin Trough 04/30/24 04/30/24 05/01/24 14:55 18:23 01:51 WBC RBC Hgb Hct MCV MCH MCHC RDW Plt Count MPV Immature Gran % (Auto) Neut % (Auto) Lymph % (Auto) [place] % (Auto) Eos % (Auto) Baso % (Auto) Lymph # (Auto) [place] # (Auto) Eos # (Auto) Baso # (Auto) Abs Immat Gran (auto) Absolute Neuts (auto) Absolute Nucleated RBC Nucleated RBC % % Immature Plt Fraction PT INR APTT Fibrinogen D-Dimer Puncture Site ABG pH ABG pCO2 ABG pO2 ABG PO2/FiO2 Ratio ABG HCO3 ABG O2 Saturation ABG O2 Content ABG Base Excess A-a Gradient Oxyhemoglobin Carboxyhemoglobin Methemoglobin Reduced Hemoglobin Total Hemoglobin O2 Delivery Device O2 Liters/Min Minute Volume Vent Rate Vent Mode FiO2 Tidal Volume PEEP Peak Inspir Pressure Pressure Support Sodium 136 L Potassium 3.7 Chloride 109 H Carbon Dioxide 23 Anion Gap 4 BUN 12 Creatinine 0.50 L Estim Creat Clear Calc 96 Estimated GFR > 60 Glucose 118 H POC Capillary Glucose 124 H 123 H Lactic Acid Calcium 8.3 L Phosphorus Magnesium Total Bilirubin AST ALT Alkaline Phosphatase Ammonia Total Creatine Kinase C-Reactive Protein Total Protein Albumin Lipase TSH Vancomycin Trough 05/01/24 05/01/24 05/01/24 05:14 05:31 05:40 WBC 15.9 H RBC 3.53 L Hgb 11.9 L Hct 36.1 L MCV 102.3 H MCH 33.7 MCHC 33.0 RDW 13.5 Plt Count 102 L MPV 11.1 H Immature Gran % (Auto) 0.8 H Neut % (Auto) 75.0 H Lymph % (Auto) 8.8 L [place] % (Auto) 12.1 H Eos % (Auto) 2.5 Baso % (Auto) 0.8 Lymph # (Auto) 1.39 [place] # (Auto) 1.9 H Eos # (Auto) 0.4 H Baso # (Auto) 0.1 Abs Immat Gran (auto) 0.12 H Absolute Neuts (auto) 11.9 H Absolute Nucleated RBC 0.000 Nucleated RBC % 0.0 % Immature Plt Fraction 5.8 PT 25.0 H INR 2.2 APTT 48.7 H Fibrinogen D-Dimer Puncture Site Right radial ABG pH 7.393 ABG pCO2 34.7 L ABG pO2 73.7 L ABG PO2/FiO2 Ratio 1.13 ABG HCO3 20.7 L ABG O2 Saturation 94.9 L ABG O2 Content 16.8 ABG Base Excess -3.5 A-a Gradient 352.0 Oxyhemoglobin 93.9 Carboxyhemoglobin 0.1 Methemoglobin 0.3 Reduced Hemoglobin 5.7 H Total Hemoglobin 12.7 O2 Delivery Device Ventilator O2 Liters/Min Not Reportable Minute Volume Not Reportable Vent Rate 20 Vent Mode Cmv FiO2 65 Tidal Volume 400 PEEP 8 Peak Inspir Pressure Not Reportable Pressure Support Not Reportable Sodium 137 Potassium 3.3 L Chloride 107 Carbon Dioxide 22 Anion Gap 8 BUN 13 Creatinine 0.50 L Estim Creat Clear Calc 96 Estimated GFR > 60 Glucose 127 H POC Capillary Glucose Lactic Acid 1.4 Calcium 8.6 Phosphorus 2.1 L Magnesium 1.6 Total Bilirubin 3.6 H AST 40 H ALT 20 Alkaline Phosphatase 91 Ammonia 44 H Total Creatine Kinase 257 H C-Reactive Protein 5.9 H Total Protein 7.0 Albumin 3.2 L Lipase < 10 L TSH 2.560 Vancomycin Trough 13.6 05/01/24 06:59 WBC RBC Hgb Hct MCV MCH MCHC RDW Plt Count MPV Immature Gran % (Auto) Neut % (Auto) Lymph % (Auto) [place] % (Auto) Eos % (Auto) Baso % (Auto) Lymph # (Auto) [place] # (Auto) Eos # (Auto) Baso # (Auto) Abs Immat Gran (auto) Absolute Neuts (auto) Absolute Nucleated RBC Nucleated RBC % % Immature Plt Fraction PT INR APTT Fibrinogen D-Dimer Puncture Site ABG pH ABG pCO2 ABG pO2 ABG PO2/FiO2 Ratio ABG HCO3 ABG O2 Saturation ABG O2 Content ABG Base Excess A-a Gradient Oxyhemoglobin Carboxyhemoglobin Methemoglobin Reduced Hemoglobin Total Hemoglobin O2 Delivery Device O2 Liters/Min Minute Volume Vent Rate Vent Mode FiO2 Tidal Volume PEEP Peak Inspir Pressure Pressure Support Sodium Potassium Chloride Carbon Dioxide Anion Gap BUN Creatinine Estim Creat Clear Calc Estimated GFR Glucose POC Capillary Glucose 127 H Lactic Acid Calcium Phosphorus Magnesium Total Bilirubin AST ALT Alkaline Phosphatase Ammonia Total Creatine Kinase C-Reactive Protein Total Protein Albumin Lipase TSH Vancomycin Trough
[2024-05-01 12:02] LABS: Glucose Point of Care 114 mg/dl (65-105)
--- NOTE | 2024-05-01 13:41 | P.PNINT_ITS ---
Progress Note: A&P Assessment and Plan (1) Acute hypoxic respiratory failure: Code(s): J96.01 - Acute respiratory failure with hypoxia Status: Acute Assessment and Plan: Acute respiratory failure likely related to pneumonia -04/29: Intubated. As patient had Increased oxygen requirements, hypoxia with difficulty in breathing -CTA chest on 04/25/2024 was negative for PE, -continue bronchodilators -continue cefepime, doxycycline vancomycin (04/29) -patient on CMV mode of ventilation, 80% FiO2 and peep of 8, low tidal volume strategy, lower tidal volume -chest x-ray reviewed, infiltrates bilaterally, right greater than left -sedated with fentanyl and Versed, maintain RASS of 0 to -2 -daily SBT and SAT (2) Cirrhosis: Code(s): K74.60 - Unspecified cirrhosis of liver Status: Acute Assessment and Plan: Patient with history of cirrhosis, likely alcoholic -given hyperbilirubinemia, marked pancreatic duct dilatation, elevated LFTs will have GI evaluate the patient -given her cirrhosis with elevation in her LFTs, elevated bilirubin, elevated INR, normal creatinine -discriminant factor is 54 -will have patient transferred for higher level of care to [facility] for hepatology evaluation 04/25/2024: CT chest/abdomen/pelvis IMPRESSION: Limited evaluation of the segmental and subsegmental pulmonary arteries. No central pulmonary embolus detected. Mild interstitial pulmonary edema. No pleural effusion is detected. Cirrhosis with portal hypertension. Chronic pancreatitis with marked pancreatic duct dilation. Correlate with pancreatic labs. (3) Hepatic encephalopathy: Code(s): K76.82 - Hepatic encephalopathy Status: Acute Assessment and Plan: Patient with hepatic encephalopathy with hyperbilirubinemia -on lactulose and rifaximin -ammonia levels are improving, continue to monitor (4) Hyperbilirubinemia: Code(s): E80.6 - Other disorders of bilirubin metabolism Status: Acute Assessment and Plan: Likely related to cirrhosis -hepatitis panel negative -right upper quadrant ultrasound showed cirrhosis with portal hypertension, cholelithiasis, pancreatic duct dilatation (5) Hospital-acquired pneumonia: Code(s): J18.9 - Pneumonia, unspecified organism; Y95 - Nosocomial condition Status: Acute Assessment and Plan: Patient with respiratory failure, increased oxygen requirements, CTA negative for PE, chest x-ray with possible pneumonia -continue antibiotics as above -04/28/2024: Preliminary blood cultures are negative x2 -04/30/2024: Sputum cultures obtained and pending - (6) UTI (urinary tract infection): Qualifiers: Hematuria presence: without hematuria Urinary tract infection type: acute cystitis Qualified Code(s): N30.00 - Acute cystitis without hematuria Code(s): N39.0 - Urinary tract infection, site not specified Status: Acute Assessment and Plan: 04/25 urine cultures growing E coli pansensitive -continue antibiotics as above (7) Thrombocytopenia: Code(s): D69.6 - Thrombocytopenia, unspecified Status: Acute Assessment and Plan: Thrombocytopenia likely related to chronic alcohol use, cirrhosis, acute critical care illness -no active bleeding noted -continue to monitor (8) Diarrhea: Code(s): R19.7 - Diarrhea, unspecified Status: Acute Assessment and Plan: Patient with diarrhea -C diff negative -stool cultures obtained and pending -continue antibiotics as above -FMS in place Plan DVT prophylaxis: SCDs, no chemoprophylaxis due to thrombocytopenia Stress ulcer prophylaxis: Protonix Nutrition: Continue trickle tube feeds, will slowly increase since she is at risk for refeeding syndrome Code Status: Full code Critical Care Time Spent: 34 minutes Called [facility] transfer line for patient transfer to hepatology evaluation and worsening discriminant factor Due to a high probability of clinically significant, life threatening deterioration, the patient required my highest level of preparedness to intervene emergently and I personally spent this critical care time directly and personally managing the patient. This critical care time included obtaining a history; examining the patient; pulse oximetry; ordering and review of studies; arranging urgent treatment with development of a management plan; evaluation of patient's response to treatment; frequent reassessment; and discussions with other providers. It was exclusive of separately billable procedures and treating other patients and teaching time. Please see Assessment and Plan section and the rest of the note for further information on patient assessment and treatment This dictation may have been done utilizing a voice recognition system. Attempts have been made to correct errors. However, there may be uncorrected grammatical, spelling, and recognitions errors present. Subjective Date/time seen: 05/01/24 13:41 Interval history: Reason for consult: Acute respiratory failure, altered mental status, hyperammonemia, cirrhosis, hyperbilirubinemia 05/01/2024: Patient seen and examined the ICU, remains intubated on CMV mode of ventilation, peep of 8, 65% FiO2. Sedated with fentanyl and Versed infusion. Patient went to AFib RVR overnight requiring amiodarone bolus followed by the infusion. Low urine output, afebrile with T-max of 100.6?. WBC trending down, tolerating tube feeds. Elevated INR of 2.2, low potassium, phosphorus and magnesium levels Off sedation patient open her eyes to name, follows simple commands with lower extremity Review of Systems Review of Systems: ROS unobtainable: Yes unobtainable due to endotracheal tube, unobtainable due to medical condition and unobtainable due to mental status Exam Narrative: General: Intubated and sedated in no acute distress HEENT:? Pupils equal and reactive, sclera is icteric Neck:? Supple Respiratory:? Coarse breath sounds bilaterally, decreased at bases, adequate air entry, no wheezing Cardiac:? S1-S2 normal, regular rate and rhythm Abdomen:? Soft, nontender, nondistended, hypoactive bowel sound Extremities:? No edema, palpable pedal pulses, lower extremities have muscular rigidity Neuro:? Patient is sedated, intubated, does not open her eyes or follow simple commands, does withdraw to pain in all extremities Skin:? Spider nevi on the upper part of her torso Psych:? Unable to assess at this time Objective Data Vital Signs Vital Signs: Vital Signs - 24 hr 04/30/24 14:00 04/30/24 14:00 04/30/24 14:00 Temperature Pulse Rate 90 90 90 Pulse Rate [Monitor] Respiratory Rate 21 H 21 H Blood Pressure Pulse Oximetry Oxygen Delivery Fraction of Inspired Oxygen 04/30/24 14:00 04/30/24 14:00 04/30/24 14:01 Temperature 99.9 F H 99.9 F H 99.9 F H Pulse Rate 89 92 90 Pulse Rate [Monitor] Respiratory Rate 20 21 H 23 H Blood Pressure 99/65 L 99/65 L Pulse Oximetry 97 97 97 Oxygen Delivery Fraction of Inspired Oxygen 04/30/24 14:23 04/30/24 14:24 04/30/24 14:30 Temperature Pulse Rate 89 97 91 Pulse Rate [Monitor] Respiratory Rate 20 21 H Blood Pressure Pulse Oximetry 97 Oxygen Delivery Mechanical Ventilation Fraction of Inspired Oxygen 60 04/30/24 14:31 04/30/24 14:51 04/30/24 14:58 Temperature 99.7 F H 99.6 F Pulse Rate 92 83 83 Pulse Rate [Monitor] Respiratory Rate 22 H 18 Blood Pressure 122/68 108/62 Pulse Oximetry 97 95 Oxygen Delivery Fraction of Inspired Oxygen 04/30/24 15:00 04/30/24 15:01 04/30/24 15:31 Temperature 99.7 F H 99.7 F H 99.8 F H Pulse Rate 80 82 78 Pulse Rate [Monitor] Respiratory Rate 18 23 H 21 H Blood Pressure 109/63 100/55 L Pulse Oximetry 95 96 94 Oxygen Delivery Fraction of Inspired Oxygen 04/30/24 15:50 04/30/24 16:00 04/30/24 16:00 Temperature 99.7 F H Pulse Rate 83 81 Pulse Rate [Monitor] Respiratory Rate 22 H 24 H Blood Pressure 119/67 Pulse Oximetry 92 Oxygen Delivery Fraction of Inspired Oxygen 50 04/30/24 16:00 04/30/24 16:00 04/30/24 16:00 Temperature Pulse Rate 81 82 Pulse Rate [Monitor] Respiratory Rate 24 H Blood Pressure Pulse Oximetry 93 Oxygen Delivery Mechanical Ventilation Fraction of Inspired Oxygen 50 04/30/24 16:01 04/30/24 16:06 04/30/24 16:31 Temperature 99.7 F H 99.8 F H Pulse Rate 89 81 154 H Pulse Rate [Monitor] Respiratory Rate 20 9 L Blood Pressure 108/63 Pulse Oximetry 93 94 Oxygen Delivery Fraction of Inspired Oxygen 04/30/24 16:48 04/30/24 16:48 04/30/24 16:56 Temperature Pulse Rate 75 76 79 Pulse Rate [Monitor] Respiratory Rate Blood Pressure 108/63 108/63 Pulse Oximetry 94 Oxygen Delivery Mechanical Ventilation Fraction of Inspired Oxygen 50 04/30/24 16:59 04/30/24 17:00 04/30/24 17:01 Temperature 99.9 F H 99.9 F H Pulse Rate 67 78 130 H Pulse Rate [Monitor] Respiratory Rate 18 20 Blood Pressure 97/58 L 97/58 L Pulse Oximetry 91 91 Oxygen Delivery Fraction of Inspired Oxygen 04/30/24 17:30 04/30/24 17:47 04/30/24 18:00 Temperature 99.8 F H 99.8 F H Pulse Rate 67 66 68 Pulse Rate [Monitor] Respiratory Rate 21 H 18 Blood Pressure 87/56 L 92/57 L Pulse Oximetry 92 91 Oxygen Delivery Fraction of Inspired Oxygen 04/30/24 18:00 04/30/24 18:00 04/30/24 18:00 Temperature 99.8 F H Pulse Rate 68 68 68 Pulse Rate [Monitor] Respiratory Rate 20 24 H 24 H Blood Pressure 97/54 L Pulse Oximetry 92 Oxygen Delivery Fraction of Inspired Oxygen 04/30/24 18:00 04/30/24 18:01 04/30/24 20:00 Temperature 99.8 F H Pulse Rate 68 68 67 Pulse Rate [Monitor] Respiratory Rate 20 20 Blood Pressure 97/54 L Pulse Oximetry 92 Oxygen Delivery Fraction of Inspired Oxygen 04/30/24 20:00 04/30/24 20:00 04/30/24 20:00 Temperature Pulse Rate 67 67 Pulse Rate [Monitor] 67 Respiratory Rate 20 Blood Pressure 84/56 L 84/56 L Pulse Oximetry Oxygen Delivery Fraction of Inspired Oxygen 04/30/24 20:00 04/30/24 20:00 04/30/24 20:00 Temperature 100.6 F H Pulse Rate 67 67 Pulse Rate [Monitor] Respiratory Rate 20 20 Blood Pressure 84/56 L Pulse Oximetry 92 92 Oxygen Delivery Mechanical Ventilation Fraction of Inspired Oxygen 60 60 04/30/24 20:00 04/30/24 20:02 04/30/24 20:02 Temperature Pulse Rate 66 66 66 Pulse Rate [Monitor] Respiratory Rate 20 Blood Pressure Pulse Oximetry 92 Oxygen Delivery Mechanical Ventilation Fraction of Inspired Oxygen 50 04/30/24 20:11 04/30/24 20:30 04/30/24 21:00 Temperature Pulse Rate 69 Pulse Rate [Monitor] Respiratory Rate 20 Blood Pressure 95/52 L 95/52 L Pulse Oximetry Oxygen Delivery Fraction of Inspired Oxygen 04/30/24 22:00 04/30/24 22:00 04/30/24 22:00 Temperature Pulse Rate 65 65 65 Pulse Rate [Monitor] Respiratory Rate 20 20 Blood Pressure 80/40 L Pulse Oximetry Oxygen Delivery Fraction of Inspired Oxygen 04/30/24 22:00 04/30/24 22:00 04/30/24 22:25 Temperature 100 F H Pulse Rate 65 65 Pulse Rate [Monitor] Respiratory Rate 20 Blood Pressure 80/40 L 86/49 L Pulse Oximetry 95 Oxygen Delivery Fraction of Inspired Oxygen 04/30/24 22:49 04/30/24 23:00 04/30/24 23:00 Temperature Pulse Rate 62 61 61 Pulse Rate [Monitor] Respiratory Rate 20 20 Blood Pressure 82/49 L Pulse Oximetry Oxygen Delivery Fraction of Inspired Oxygen 04/30/24 23:15 04/30/24 23:15 04/30/24 23:45 Temperature Pulse Rate 63 63 63 Pulse Rate [Monitor] Respiratory Rate 20 20 Blood Pressure Pulse Oximetry 92 Oxygen Delivery Mechanical Ventilation Fraction of Inspired Oxygen 60 05/01/24 00:00 05/01/24 00:00 05/01/24 00:00 Temperature Pulse Rate 65 65 Pulse Rate [Monitor] 65 Respiratory Rate 20 20 Blood Pressure 102/55 L Pulse Oximetry Oxygen Delivery Fraction of Inspired Oxygen 05/01/24 00:00 05/01/24 00:00 05/01/24 00:00 Temperature Pulse Rate 65 20 L Pulse Rate [Monitor] Respiratory Rate 20 Blood Pressure Pulse Oximetry 90 Oxygen Delivery Mechanical Ventilation Fraction of Inspired Oxygen 65 65 05/01/24 00:00 05/01/24 00:00 05/01/24 00:00 Temperature 99.6 F Pulse Rate 65 65 60 Pulse Rate [Monitor] Respiratory Rate 20 Blood Pressure 102/55 L 102/55 L 102/55 L Pulse Oximetry 90 Oxygen Delivery Fraction of Inspired Oxygen 05/01/24 02:00 05/01/24 02:00 05/01/24 02:00 Temperature Pulse Rate 60 60 60 Pulse Rate [Monitor] Respiratory Rate 20 20 Blood Pressure Pulse Oximetry Oxygen Delivery Fraction of Inspired Oxygen 05/01/24 02:00 05/01/24 02:00 05/01/24 02:24 Temperature 99.2 F Pulse Rate 60 60 61 Pulse Rate [Monitor] Respiratory Rate 20 20 Blood Pressure 94/55 L 94/55 L Pulse Oximetry 94 Oxygen Delivery Fraction of Inspired Oxygen 05/01/24 02:25 05/01/24 03:09 05/01/24 03:21 Temperature Pulse Rate 61 55 L 61 Pulse Rate [Monitor] Respiratory Rate 20 Blood Pressure 86/49 L Pulse Oximetry 94 Oxygen Delivery Mechanical Ventilation Fraction of Inspired Oxygen 65 05/01/24 03:21 05/01/24 03:22 05/01/24 03:22 Temperature Pulse Rate 61 61 61 Pulse Rate [Monitor] Respiratory Rate 20 20 20 Blood Pressure Pulse Oximetry Oxygen Delivery Fraction of Inspired Oxygen 05/01/24 03:28 05/01/24 04:00 05/01/24 04:00 Temperature Pulse Rate 62 62 62 Pulse Rate [Monitor] Respiratory Rate 20 20 Blood Pressure 119/60 Pulse Oximetry Oxygen Delivery Fraction of Inspired Oxygen 05/01/24 04:00 05/01/24 04:00 05/01/24 04:00 Temperature Pulse Rate 62 62 Pulse Rate [Monitor] 62 Respiratory Rate Blood Pressure 110/62 110/62 110/62 Pulse Oximetry Oxygen Delivery Fraction of Inspired Oxygen 05/01/24 04:00 05/01/24 04:00 05/01/24 04:00 Temperature Pulse Rate 62 63 Pulse Rate [Monitor] Respiratory Rate 20 Blood Pressure Pulse Oximetry 95 Oxygen Delivery Mechanical Ventilation Fraction of Inspired Oxygen 65 65 05/01/24 04:00 05/01/24 05:16 05/01/24 06:00 Temperature 98.4 F Pulse Rate 62 59 L 63 Pulse Rate [Monitor] Respiratory Rate 20 Blood Pressure 110/62 114/61 Pulse Oximetry 95 94 Oxygen Delivery Mechanical Ventilation Fraction of Inspired Oxygen 65 05/01/24 06:00 05/01/24 06:00 05/01/24 06:00 Temperature Pulse Rate 63 63 63 Pulse Rate [Monitor] Respiratory Rate 20 20 Blood Pressure Pulse Oximetry Oxygen Delivery Fraction of Inspired Oxygen 05/01/24 06:00 05/01/24 06:08 05/01/24 07:50 Temperature 98.5 F Pulse Rate 63 63 58 L Pulse Rate [Monitor] Respiratory Rate 20 Blood Pressure 114/61 114/61 Pulse Oximetry 90 93 Oxygen Delivery Mechanical Ventilation Fraction of Inspired Oxygen 65 05/01/24 07:50 05/01/24 08:00 05/01/24 08:00 Temperature 98.4 F Pulse Rate 58 L 58 L 59 L Pulse Rate [Monitor] Respiratory Rate 20 20 Blood Pressure 102/58 L 102/58 L Pulse Oximetry 94 Oxygen Delivery Fraction of Inspired Oxygen 05/01/24 08:00 05/01/24 08:00 05/01/24 08:00 Temperature Pulse Rate 59 L 59 L 59 L Pulse Rate [Monitor] Respiratory Rate 20 20 Blood Pressure 102/58 L Pulse Oximetry Oxygen Delivery Fraction of Inspired Oxygen 05/01/24 08:00 05/01/24 08:00 05/01/24 08:00 Temperature Pulse Rate Pulse Rate [Monitor] 59 L Respiratory Rate 20 Blood Pressure Pulse Oximetry 93 Oxygen Delivery Mechanical Ventilation Fraction of Inspired Oxygen 65 65 05/01/24 08:09 05/01/24 10:00 05/01/24 10:00 Temperature 98.3 F Pulse Rate 63 58 L 59 L Pulse Rate [Monitor] Respiratory Rate 20 20 Blood Pressure 98/59 L 98/59 L Pulse Oximetry 95 Oxygen Delivery Fraction of Inspired Oxygen 05/01/24 10:00 05/01/24 10:00 05/01/24 10:00 Temperature Pulse Rate 54 L 59 L 59 L Pulse Rate [Monitor] Respiratory Rate 20 20 Blood Pressure 94/54 L Pulse Oximetry Oxygen Delivery Fraction of Inspired Oxygen 05/01/24 10:15 05/01/24 10:15 05/01/24 10:15 Temperature Pulse Rate 54 L 54 L 54 L Pulse Rate [Monitor] Respiratory Rate 20 20 Blood Pressure 94/54 L Pulse Oximetry Oxygen Delivery Fraction of Inspired Oxygen 05/01/24 10:20 05/01/24 11:00 05/01/24 11:58 Temperature Pulse Rate 56 L 60 62 Pulse Rate [Monitor] Respiratory Rate Blood Pressure 99/55 L 97/53 L Pulse Oximetry 94 Oxygen Delivery Mechanical Ventilation Fraction of Inspired Oxygen 65 05/01/24 12:00 Temperature 98.5 F Pulse Rate 61 Pulse Rate [Monitor] Respiratory Rate 20 Blood Pressure 94/53 L Pulse Oximetry 95 Oxygen Delivery Fraction of Inspired Oxygen Intake/Output Intake/Output: Intake & Output 04/28/24 04/29/24 04/30/24 05/01/24 23:59 23:59 23:59 23:59 Intake Total 2320.0 1603.0 5748.4 1846.1 Output Total 3200 2000 1000 300 Balance -880.0 -397.0 4748.4 1546.1 Meds/Results Medications: Active Medications Generic Name Dose Route Start Last Admin Trade Name Freq PRN Reason Stop Dose Admin Albuterol/Ipratropium 3 ml 04/30/24 14:00 05/01/24 07:50 Ipratropium 0.5 Mg/Albuterol Sulfate 2.5 Mg Ampul.Neb 3 Ml NEBULIZE 3 ml Q6HRT MICHOACANO Administration Dextrose 12.5 gm 04/26/24 02:36 Dextrose 50% 25 Gm/50 Ml Syringe IV PUSH PRN PRN Hypoglycemia Protocol Folic Acid 1 mg 04/30/24 09:00 05/01/24 10:00 Folic Acid 1 Mg/0.2 Ml Inj IV PUSH 1 mg QAM MICHOACANO Administration Glucagon 1 mg 04/26/24 02:36 Glucagon For Inj 1 Mg Vial IM PRN PRN Hypoglycemia Protocol Glucose 15 gm 04/26/24 02:36 Glucose Oral Gel 15 Gm Of Glucse In 37.5 Gm Tube PO PRN PRN Hypoglycemia Protocol Dextrose 1,000 mls @ 100 mls/hr 04/26/24 02:36 Dextrose 5% 1,000 Ml IVPB PRN PRN Hypoglycemia Protocol Doxycycline Hyclate 100 mg in 100 mls @ 100 mls/hr 04/29/24 17:00 05/01/24 06:04 Vibramycin 100 Mg/Ns 100 Ml IVPB Infused Q12H MICHOACANO Infusion Fentanyl Citrate 2,500 mcg in 250 mls @ 0 mls/hr 04/29/24 15:55 05/01/24 10:15 Fentanyl 2,500 Mcg/Ns 250 Ml IV CONT 0 mcg/hr .Q0M MICHOACANO 0 mls/hr Infusion Midazolam HCl 100 mg in 100 mls @ 0 mls/hr 04/29/24 15:55 05/01/24 10:15 Versed 100 Mg/Ns 100 Ml IV CONT 0 mg/hr .Q0M MICHOACANO 0 mls/hr Infusion Cefepime HCl 2 gm in 50 mls @ 100 mls/hr 04/29/24 20:00 05/01/24 11:00 Maxipime 2 Gm/Ns 50 Ml IVPB 100 mls/hr Q8H MICHOACANO Administration Amiodarone HCl/Dextrose 360 mg in 200 mls @ 0 mls/hr 04/30/24 22:54 05/01/24 10:15 Nexterone 360 Mg/D5w 200 Ml IV CONT 0 mg/min .Q0M MICHOACAON 0 mls/hr Infusion Norepinephrine Bitartrate 8 mg in 250 mls @ 0 mls/hr 05/01/24 02:55 05/01/24 11:58 Levophed 8 Mg/D5w 250 Ml IV CONT 0 mcg/min .Q0M MICHOACANO 0 mls/hr Titration Protocol Vancomycin HCl 1,750 mg in 500 mls @ 250 mls/hr 05/01/24 07:00 05/01/24 09:08 Vancomycin 1,750 Mg/Ns 500 Ml IVPB Infused Q8H MICHOACANO Infusion Potassium Chloride 100 mls @ 25 mls/hr 05/01/24 10:39 05/01/24 10:58 Kcl 40 Meq/Water 100 Ml IVPB 05/01/24 14:38 25 mls/hr ONCE ONE Administration Ibuprofen 400 mg 04/26/24 01:26 04/27/24 01:10 Ibuprofen 400 Mg Tablet PO 400 mg Q6H PRN Administration Mild Pain (1-3) or Fever Lactulose 20 gm 04/28/24 19:55 05/01/24 05:01 Lactulose 20 Gm/30 Ml Udc PO 20 gm Q8HR MICHOACANO Administration Multi-Ingred Cream/Lotion/Oil/Oint 1 applic 04/30/24 09:00 05/01/24 09:42 Mineral Oil/White Petrolatum Ointment EACH EYE 1 applic Q12HR MICHOACANO Administration Ondansetron HCl 4 mg 04/26/24 01:26 Ondansetron Inj 4 Mg/2 Ml Vial IV PUSH Q4H PRN Nausea Pantoprazole Sodium 40 mg 04/30/24 09:00 05/01/24 09:42 Pantoprazole Sodium Iv 40 Mg Vial IV PUSH 40 mg DAILY MICHOACANO Administration Rifaximin 550 mg 04/29/24 09:00 05/01/24 09:42 Rifaximin 550 Mg Tablet FEED TUBE 550 mg Q12HR MICHOACANO Administration Sodium Chloride 20 ml 04/30/24 08:26 Central Line Flush IV PUSH PRN PRN after blood draws Sodium Chloride 10 ml 04/30/24 08:26 Central Line Flush IV PUSH PRN PRN with TPN bag changes Sodium Chloride 10 ml 04/30/24 14:00 05/01/24 06:03 Central Line Flush IV PUSH 10 ml Q8HR MICHOACANO Administration Radiology Results: ITS Impressions Cervical Spine CT 04/25/24 19:55 IMPRESSION: No acute fracture or traumatic malalignment in the cervical spine. Abdomen Ultrasound 04/25/24 21:27 IMPRESSION: Cirrhosis with portal hypertension. Cholelithiasis. Pancreatic duct dilation. Chest/Abdomen/Pelvis CTA 04/25/24 21:32 IMPRESSION: Limited evaluation of the segmental and subsegmental pulmonary arteries. No central pulmonary embolus detected. Mild interstitial pulmonary edema. No pleural effusion is detected. Cirrhosis with portal hypertension. Chronic pancreatitis with marked pancreatic duct dilation. Correlate with pancreatic labs. ADDENDUM: 04/29/24 1515 There is an 11 mm nodule in left lung upper lobe suspicious for primary bronchogenic carcinoma. Noncontrast low-dose chest CT is recommended in [address] 04/28/24 10:30 IMPRESSION: 1. Stable appearance of mild age-related changes including mild diffuse volume loss and mild scattered white matter hypoattenuation consistent with chronic small vessel ischemic disease. No acute intracranial process. Abdomen X-Ray 04/29/24 16:22 IMPRESSION: 1. Nasogastric tube tip in the distal stomach. Chest X-Ray 05/01/24 06:48 Impression: Support tubes, as above. Probable moderate bibasilar pulmonary edema and atelectatic change. Correlate clinically for pneumonia. Small right pleural effusion. Labs Labs: Laboratory Results - last 24 hr 04/30/24 04/30/24 04/30/24 14:53 14:53 14:53 WBC 18.3 H TNP RBC 3.82 L TNP Hgb 13.4 Hct MCV MCH MCHC RDW Plt Count MPV Immature Gran % (Auto) Neut % (Auto) Lymph % (Auto) Chase % (Auto) Eos % (Auto) Baso % (Auto) Lymph # (Auto) Chase # (Auto) Eos # (Auto) Baso # (Auto) Abs Immat Gran (auto) Absolute Neuts (auto) Absolute Nucleated RBC Nucleated RBC % % Immature Plt Fraction PT INR APTT Fibrinogen D-Dimer Puncture Site ABG pH ABG pCO2 ABG pO2 ABG PO2/FiO2 Ratio ABG HCO3 ABG O2 Saturation ABG O2 Content ABG Base Excess A-a Gradient Oxyhemoglobin Carboxyhemoglobin Methemoglobin Reduced Hemoglobin Total Hemoglobin O2 Delivery Device O2 Liters/Min Minute Volume Vent Rate Vent Mode FiO2 Tidal Volume PEEP Peak Inspir Pressure Pressure Support Sodium Potassium Chloride Carbon Dioxide Anion Gap BUN Creatinine Estim Creat Clear Calc Estimated GFR Glucose POC Capillary Glucose Lactic Acid Calcium Phosphorus Magnesium Total Bilirubin AST ALT Alkaline Phosphatase Ammonia Total Creatine Kinase C-Reactive Protein Total Protein Albumin Lipase TSH Vancomycin Trough 04/30/24 04/30/24 04/30/24 14:53 14:53 14:53 WBC RBC Hgb TNP Hct 38.5 TNP MCV 100.8 H TNP MCH 35.1 H MCHC RDW Plt Count MPV Immature Gran % (Auto) Neut % (Auto) Lymph % (Auto) Chase % (Auto) Eos % (Auto) Baso % (Auto) Lymph # (Auto) Chase # (Auto) Eos # (Auto) Baso # (Auto) Abs Immat Gran (auto) Absolute Neuts (auto) Absolute Nucleated RBC Nucleated RBC % % Immature Plt Fraction PT INR APTT Fibrinogen D-Dimer Puncture Site ABG pH ABG pCO2 ABG pO2 ABG PO2/FiO2 Ratio ABG HCO3 ABG O2 Saturation ABG O2 Content ABG Base Excess A-a Gradient Oxyhemoglobin Carboxyhemoglobin Methemoglobin Reduced Hemoglobin Total Hemoglobin O2 Delivery Device O2 Liters/Min Minute Volume Vent Rate Vent Mode FiO2 Tidal Volume PEEP Peak Inspir Pressure Pressure Support Sodium Potassium Chloride Carbon Dioxide Anion Gap BUN Creatinine Estim Creat Clear Calc Estimated GFR Glucose POC Capillary Glucose Lactic Acid Calcium Phosphorus Magnesium Total Bilirubin AST ALT Alkaline Phosphatase Ammonia Total Creatine Kinase C-Reactive Protein Total Protein Albumin Lipase TSH Vancomycin Trough 04/30/24 04/30/24 04/30/24 14:53 14:53 14:53 WBC RBC Hgb Hct MCV MCH TNP MCHC 34.8 TNP RDW 13.6 TNP Plt Count 100 L MPV Immature Gran % (Auto) Neut % (Auto) Lymph % (Auto) Chase % (Auto) Eos % (Auto) Baso % (Auto) Lymph # (Auto) Chase # (Auto) Eos # (Auto) Baso # (Auto) Abs Immat Gran (auto) Absolute Neuts (auto) Absolute Nucleated RBC Nucleated RBC % % Immature Plt Fraction PT INR APTT Fibrinogen D-Dimer Puncture Site ABG pH ABG pCO2 ABG pO2 ABG PO2/FiO2 Ratio ABG HCO3 ABG O2 Saturation ABG O2 Content ABG Base Excess A-a Gradient Oxyhemoglobin Carboxyhemoglobin Methemoglobin Reduced Hemoglobin Total Hemoglobin O2 Delivery Device O2 Liters/Min Minute Volume Vent Rate Vent Mode FiO2 Tidal Volume PEEP Peak Inspir Pressure Pressure Support Sodium Potassium Chloride Carbon Dioxide Anion Gap BUN Creatinine Estim Creat Clear Calc Estimated GFR Glucose POC Capillary Glucose Lactic Acid Calcium Phosphorus Magnesium Total Bilirubin AST ALT Alkaline Phosphatase Ammonia Total Creatine Kinase C-Reactive Protein Total Protein Albumin Lipase TSH Vancomycin Trough 04/30/24 04/30/24 04/30/24 14:53 14:53 14:55 WBC RBC Hgb Hct MCV MCH MCHC RDW Plt Count TNP MPV 10.6 H TNP Immature Gran % (Auto) Neut % (Auto) Lymph % (Auto) Chase % (Auto) Eos % (Auto) Baso % (Auto) Lymph # (Auto) Chase # (Auto) Eos # (Auto) Baso # (Auto) Abs Immat Gran (auto) Absolute Neuts (auto) Absolute Nucleated RBC Nucleated RBC % % Immature Plt Fraction 4.2 PT 22.7 H INR 2.0 APTT 45.7 H Fibrinogen 275 D-Dimer 1.00 H Puncture Site ABG pH ABG pCO2 ABG pO2 ABG PO2/FiO2 Ratio ABG HCO3 ABG O2 Saturation ABG O2 Content ABG Base Excess A-a Gradient Oxyhemoglobin Carboxyhemoglobin Methemoglobin Reduced Hemoglobin Total Hemoglobin O2 Delivery Device O2 Liters/Min Minute Volume Vent Rate Vent Mode FiO2 Tidal Volume PEEP Peak Inspir Pressure Pressure Support Sodium 136 L Potassium 3.7 Chloride 109 H Carbon Dioxide 23 Anion Gap 4 BUN 12 Creatinine 0.50 L Estim Creat Clear Calc 96 Estimated GFR > 60 Glucose 118 H POC Capillary Glucose Lactic Acid Calcium 8.3 L Phosphorus Magnesium 1.8 Total Bilirubin AST ALT Alkaline Phosphatase Ammonia Total Creatine Kinase C-Reactive Protein Total Protein Albumin Lipase TSH Vancomycin Trough 04/30/24 05/01/24 05/01/24 18:23 01:51 05:14 WBC RBC Hgb Hct MCV MCH MCHC RDW Plt Count MPV Immature Gran % (Auto) Neut % (Auto) Lymph % (Auto) [place] % (Auto) Eos % (Auto) Baso % (Auto) Lymph # (Auto) [place] # (Auto) Eos # (Auto) Baso # (Auto) Abs Immat Gran (auto) Absolute Neuts (auto) Absolute Nucleated RBC Nucleated RBC % % Immature Plt Fraction PT INR APTT Fibrinogen D-Dimer Puncture Site Right radial ABG pH 7.393 ABG pCO2 34.7 L ABG pO2 73.7 L ABG PO2/FiO2 Ratio 1.13 ABG HCO3 20.7 L ABG O2 Saturation 94.9 L ABG O2 Content 16.8 ABG Base Excess -3.5 A-a Gradient 352.0 Oxyhemoglobin 93.9 Carboxyhemoglobin 0.1 Methemoglobin 0.3 Reduced Hemoglobin 5.7 H Total Hemoglobin 12.7 O2 Delivery Device Ventilator O2 Liters/Min Not Reportable Minute Volume Not Reportable Vent Rate 20 Vent Mode Cmv FiO2 65 Tidal Volume 400 PEEP 8 Peak Inspir Pressure Not Reportable Pressure Support Not Reportable Sodium Potassium Chloride Carbon Dioxide Anion Gap BUN Creatinine Estim Creat Clear Calc Estimated GFR Glucose POC Capillary Glucose 124 H 123 H Lactic Acid Calcium Phosphorus Magnesium Total Bilirubin AST ALT Alkaline Phosphatase Ammonia Total Creatine Kinase C-Reactive Protein Total Protein Albumin Lipase TSH Vancomycin Trough 05/01/24 05/01/24 05/01/24 05:31 05:40 06:59 WBC 15.9 H RBC 3.53 L Hgb 11.9 L Hct 36.1 L MCV 102.3 H MCH 33.7 MCHC 33.0 RDW 13.5 Plt Count 102 L MPV 11.1 H Immature Gran % (Auto) 0.8 H Neut % (Auto) 75.0 H Lymph % (Auto) 8.8 L [place] % (Auto) 12.1 H Eos % (Auto) 2.5 Baso % (Auto) 0.8 Lymph # (Auto) 1.39 [place] # (Auto) 1.9 H Eos # (Auto) 0.4 H Baso # (Auto) 0.1 Abs Immat Gran (auto) 0.12 H Absolute Neuts (auto) 11.9 H Absolute Nucleated RBC 0.000 Nucleated RBC % 0.0 % Immature Plt Fraction 5.8 PT 25.0 H INR 2.2 APTT 48.7 H Fibrinogen D-Dimer Puncture Site ABG pH ABG pCO2 ABG pO2 ABG PO2/FiO2 Ratio ABG HCO3 ABG O2 Saturation ABG O2 Content ABG Base Excess A-a Gradient Oxyhemoglobin Carboxyhemoglobin Methemoglobin Reduced Hemoglobin Total Hemoglobin O2 Delivery Device O2 Liters/Min Minute Volume Vent Rate Vent Mode FiO2 Tidal Volume PEEP Peak Inspir Pressure Pressure Support Sodium 137 Potassium 3.3 L Chloride 107 Carbon Dioxide 22 Anion Gap 8 BUN 13 Creatinine 0.50 L Estim Creat Clear Calc 96 Estimated GFR > 60 Glucose 127 H POC Capillary Glucose 127 H Lactic Acid 1.4 Calcium 8.6 Phosphorus 2.1 L Magnesium 1.6 Total Bilirubin 3.6 H AST 40 H ALT 20 Alkaline Phosphatase 91 Ammonia 44 H Total Creatine Kinase 257 H C-Reactive Protein 5.9 H Total Protein 7.0 Albumin 3.2 L Lipase < 10 L TSH 2.560 Vancomycin Trough 13.6 05/01/24 12:00 WBC RBC Hgb Hct MCV MCH MCHC RDW Plt Count MPV Immature Gran % (Auto) Neut % (Auto) Lymph % (Auto) [place] % (Auto) Eos % (Auto) Baso % (Auto) Lymph # (Auto) [place] # (Auto) Eos # (Auto) Baso # (Auto) Abs Immat Gran (auto) Absolute Neuts (auto) Absolute Nucleated RBC Nucleated RBC % % Immature Plt Fraction PT INR APTT Fibrinogen D-Dimer Puncture Site ABG pH ABG pCO2 ABG pO2 ABG PO2/FiO2 Ratio ABG HCO3 ABG O2 Saturation ABG O2 Content ABG Base Excess A-a Gradient Oxyhemoglobin Carboxyhemoglobin Methemoglobin Reduced Hemoglobin Total Hemoglobin O2 Delivery Device O2 Liters/Min Minute Volume Vent Rate Vent Mode FiO2 Tidal Volume PEEP Peak Inspir Pressure Pressure Support Sodium Potassium Chloride Carbon Dioxide Anion Gap BUN Creatinine Estim Creat Clear Calc Estimated GFR Glucose POC Capillary Glucose 114 H Lactic Acid Calcium Phosphorus Magnesium Total Bilirubin AST ALT Alkaline Phosphatase Ammonia Total Creatine Kinase C-Reactive Protein Total Protein Albumin Lipase TSH Vancomycin Trough Quality VTE Prophylaxis VTE prophylaxis: mechanical ordered
[2024-05-01] MEDS: FUROSEMIDE INJ 40 MG/4 ML VIAL IV PUSH (15:00)
[2024-05-01 18:38] LABS: Glucose Point of Care 157 mg/dl (65-105)
[2024-05-01 23:08] LABS: Glucose Point of Care 131 mg/dl (65-105)
[2024-05-02] VITALS (26 sets, daily range): BP systolic 89–127; BP diastolic 48–76; PULSE 59–89; RESP 18–28; TEMP 36.2–37.3; O2SAT 90–98; BMI 27.5
[2024-05-02] MEDS: IPRATROPIUM 0.5 MG/ALBUTEROL SULFATE 2.5 MG AMPUL.NEB 3 ML NEBULIZE ×3 (02:32→14:02)
[2024-05-02] MEDS: CEFEPIME 2 GM/NS 50 ML 2 GM/50 ML BAG IVPB ×2 (04:50→11:45)
[2024-05-02] MEDS: DOXYCYCLINE 100 MG/NS 100 ML 100 MG/100 ML BAG IVPB ×2 (04:53→16:37)
[2024-05-02 05:29] LABS: Alveolar/Arterial O2 Gradient 349.2 mmHg; Base Excess ABG -2.6 mEq/l (+/-2.0); Carboxyhemoglobin 0.3 % THb (0-2.0); Fractional Inspired Oxygen 70 %; HCO3 ABG 19.1 mEq/l (22.0-26.0); Methemoglobin ABG 0.3 %THb (0-1.5); Oxygen Content ABG 17.6 %vol (16.0-22.0); Oxygen Saturation ABG 98.8 % (95.0-100.0); Oxyhemoglobin 98.1 % THb (90.0-100.0); PO2 FiO2 Ratio Arterial Blood 1.76 %; Reduced Hemoglobin 1.3 %THb (0-5.0); Total Hemoglobin 12.6 g/dL (12.0-18.0)
[2024-05-02 05:31] LABS: Arterial Blood Gas PEEP 8 cmH2O; Arterial Blood Gas Tidal Volume 400 ml; Arterial Blood Gas Vent Mode CMV; Arterial Blood Gas Ventilator rate 20 /MIN; Device VENTILATOR; Modified Allen's Test Pass; Site Drawn RIGHT RADIAL; pH ABG 7.501 (7.350-7.450)
[2024-05-02] MEDS: CENTRAL LINE FLUSH 10 ML IV PUSH ×2 (06:30→14:42)
[2024-05-02] MEDS: LACTULOSE 20 GM/30 ML UDC PO (06:30)
[2024-05-02 06:38] LABS: Basophils Percent Auto 0.5 % (0.2-1.2); Eosinophils Absolute Auto 0.2 K/mm3 (0-0.3); Eosinophils Percent Auto 2.1 % (0-4.4); Hematocrit 33.6 % (37.0-47.0); Hemoglobin 11.7 g/dL (12.0-15.0); Immature Granulocyte Absolute 0.05 K/mm3 (0.00-0.031); Immature Granulocyte Percent A 0.7 % (0-0.5); Immature Platelet Fraction Pct 4.9 % (0.9-11.2); Lymphocytes Absolute Auto 1.04 K/mm3 (0.9-3.2); Lymphocytes Percent Auto 13.9 % (18.3-44.2); Mean Corpuscular HGB Conc 34.8 g/dl (32-36); Mean Corpuscular Hemoglobin 34.5 pg (26-34); Mean Corpuscular Volume 99.1 fl (80-100); Monocytes Absolute Auto 1.3 K/mm3 (0.1-0.6); Neutrophils Absolute Auto 4.9 K/mm3 (1.3-6.7); Neutrophils Percent Auto 65.8 % (45.5-73.1); Platelet Count Result 71 k/mm3 (150-375); Red Blood Count 3.39 M/mm3 (4.2-5.4); Red Cell Distribution Width 13.5 % (11.5-14.5); White Blood Count 7.5 K/mm3 (4.5-10.0)
[2024-05-02 06:46] LABS: Ammonia 33 umol/L (9-30); Lactic Acid Reflex 1.8 mmol/L (0.7-2.0)
[2024-05-02 06:48] LABS: Alanine Aminotransferase 21 U/L (6-35); Albumin Level 2.7 g/dL (3.5-5.1); Alkaline Phosphatase 104 U/L (38-126); Anion Gap 5 mmol/L (4-12); Aspartate Amino Transferase 42 U/L (14-36); Bilirubin,Total 3.7 mg/dL (0.2-1.3); Blood Urea Nitrogen 8 mg/dL (7-17); Calcium 8.6 mg/dL (8.4-10.2); Carbon Dioxide 24 mmol/L (22-30); Chloride 107 mmol/L (98-107); Estimated CRCL calculation 132 ml/min; Estimated Glomerular Filt Rate > 60; Glucose 107 mg/dL (65-110); Magnesium 1.4 mg/dL (1.6-2.3); Sodium 136 mmol/L (137-145)
[2024-05-02 06:51] LABS: Prothrombin Time 22.8 Seconds (11.1-14.7)
[2024-05-02 06:52] LABS: Partial Thromboplastin Time 41.7 Seconds (22.3-36.8)
[2024-05-02 06:57] LABS: Vancomycin Trough 18.6 ug/mL (10.0-20.0)
[2024-05-02] MEDS: VANCOMYCIN 1,750 MG/NS 500 ML 1,750 MG/500 ML BAG 250 MG IVPB (09:46)
[2024-05-02] MEDS: POTASSIUM/PHOSPHORUS/SODIUM 1.5 GM PACKET 1 PACKET PO (09:48)
[2024-05-02] MEDS: POTASSIUM CHLORIDE 20 MEQ PACKET (FOR LIQUID) 40 MEQ PO (09:48)
[2024-05-02] MEDS: PHYTONADIONE ADULT INJ 10 MG in DEXTROSE 5% IN WATER 50 ML 100 MG IVPB (09:49)
[2024-05-02] MEDS: FOLIC ACID 1 MG/0.2 ML INJ IV PUSH (09:49)
[2024-05-02] MEDS: PANTOPRAZOLE SODIUM IV 40 MG VIAL IV PUSH (09:49)
[2024-05-02] MEDS: rifAXIMin 550 MG TABLET FEED TUBE (09:49)
[2024-05-02] MEDS: MAGNESIUM SULFATE 3GM/D5W100ML 3 GM/100 ML BAG IVPB (09:58)
[2024-05-02] MEDS: MINERAL OIL/WHITE PETROLATUM OINTMENT 1 APPLIC EACH EYE (10:15)
[2024-05-02] MEDS: KCL 40 MEQ/WATER 100 ML 100 ML 25 ML IVPB (10:44)
[2024-05-02 11:50] LABS: Glucose Point of Care 114 mg/dl (65-105)
--- NOTE | 2024-05-02 12:07 | P.PNINT_ITS ---
Progress Note: A&P Assessment and Plan (1) Acute hypoxic respiratory failure: Code(s): J96.01 - Acute respiratory failure with hypoxia Status: Acute Assessment and Plan: Acute respiratory failure likely related to pneumonia -04/29: Intubated. As patient had Increased oxygen requirements, hypoxia with difficulty in breathing -CTA chest on 04/25/2024 was negative for PE, -continue bronchodilators -continue cefepime, doxycycline vancomycin (04/29) -patient on CMV mode of ventilation, 70 % FiO2 and peep of 8, low tidal volume strategy, wean FiO2 to maintain O2 sats greater than 92% -chest x-ray reviewed, patchy bilateral pulmonary edema/atelectasis versus pneumonia. -off all sedation -daily SBT and SAT (2) Cirrhosis: Code(s): K74.60 - Unspecified cirrhosis of liver Status: Acute Assessment and Plan: Patient with history of cirrhosis, likely alcoholic -given hyperbilirubinemia, marked pancreatic duct dilatation, elevated LFTs will have GI evaluate the patient -given her cirrhosis with elevation in her LFTs, elevated bilirubin, elevated INR, normal creatinine -Maddrey discriminant factor is 50, will stay away from steroid per GI, given her infection/sepsis/septic shock -05/01: discussed with GI/hepatology at [facility] who has accepted the patient in consultation. After which I -discussed with the MICU fellow, patient was accepted ICU under Dr. Allen in [facility]. Will be transferred when they have a bed available. 04/25/2024: CT chest/abdomen/pelvis IMPRESSION: Limited evaluation of the segmental and subsegmental pulmonary arteries. No central pulmonary embolus detected. Mild interstitial pulmonary edema. No pleural effusion is detected. Cirrhosis with portal hypertension. Chronic pancreatitis with marked pancreatic duct dilation. Correlate with pancreatic labs. (3) Hepatic encephalopathy: Code(s): K76.82 - Hepatic encephalopathy Status: Acute Assessment and Plan: Patient with hepatic encephalopathy with hyperbilirubinemia -on lactulose and rifaximin -ammonia levels are improving, continue to monitor -decrease lactulose to patient is having significant bowel movement and improvement in her ammonia level (4) Hyperbilirubinemia: Code(s): E80.6 - Other disorders of bilirubin metabolism Status: Acute Assessment and Plan: Likely related to cirrhosis -hepatitis panel negative -right upper quadrant ultrasound showed cirrhosis with portal hypertension, cholelithiasis, pancreatic duct dilatation (5) Hospital-acquired pneumonia: Code(s): J18.9 - Pneumonia, unspecified organism; Y95 - Nosocomial condition Status: Acute Assessment and Plan: Patient with respiratory failure, increased oxygen requirements, CTA negative for PE, chest x-ray with possible pneumonia -continue antibiotics as above -04/28/2024: Preliminary blood cultures are negative x2 -04/30/2024: Sputum cultures Yeast - (6) UTI (urinary tract infection): Qualifiers: Hematuria presence: without hematuria Urinary tract infection type: acute cystitis Qualified Code(s): N30.00 - Acute cystitis without hematuria Code(s): N39.0 - Urinary tract infection, site not specified Status: Acute Assessment and Plan: 04/25 urine cultures growing E coli pansensitive -continue antibiotics as above (7) Thrombocytopenia: Code(s): D69.6 - Thrombocytopenia, unspecified Status: Acute Assessment and Plan: Thrombocytopenia likely related to chronic alcohol use, cirrhosis, acute critical care illness -no active bleeding noted -continue to monitor (8) Diarrhea: Code(s): R19.7 - Diarrhea, unspecified Status: Acute Assessment and Plan: Patient with diarrhea -C diff negative -stool cultures obtained and pending -continue antibiotics as above -FMS in place Plan DVT prophylaxis: SCDs, no chemoprophylaxis due to thrombocytopenia Stress ulcer prophylaxis: Protonix Nutrition: Continue trickle tube feeds, will slowly increase since she is at risk for refeeding syndrome Code Status: Full code Critical Care Time Spent: 33 minutes -05/01: discussed with GI/hepatology at [facility] who has accepted the patient in consultation. After which I discussed with the MICU fellow, patient was accepted in ICU under Dr. Allen (attending) at [facility]. Will be transferred when they have a bed available. Due to a high probability of clinically significant, life threatening deterioration, the patient required my highest level of preparedness to intervene emergently and I personally spent this critical care time directly and personally managing the patient. This critical care time included obtaining a history; examining the patient; pulse oximetry; ordering and review of studies; arranging urgent treatment with development of a management plan; evaluation of patient's response to treatment; frequent reassessment; and discussions with other providers. It was exclusive of separately billable procedures and treating other patients and teaching time. Please see Assessment and Plan section and the rest of the note for further information on patient assessment and treatment This dictation may have been done utilizing a voice recognition system. Attempts have been made to correct errors. However, there may be uncorrected grammatical, spelling, and recognitions errors present. Subjective Date/time seen: 05/02/24 12:07 Interval history: Reason for consult: Acute respiratory failure, altered mental status, hyperammonemia, cirrhosis, hyperbilirubinemia 05/02/2024: Patient seen examined the ICU, remains intubated on CMV mode of ventilation, peep of 8, 70% FiO2. Off all sedation, off Levophed. Currently in sinus rhythm. Adequate urine output, afebrile. Hemodynamically stable. Patient opens her eyes, follows simple commands in all extremities. INR is 2.0 this morning, total bilirubin is 3.7. Creatinine creatinine of 0.4, platelets 71. Potassium, magnesium and phosphorus are low Review of Systems Review of Systems: ROS unobtainable: Yes unobtainable due to endotracheal tube, unobtainable due to medical condition and unobtainable due to mental status Exam Narrative: General: Intubated, off sedation, in no acute distress HEENT:? Pupils equal and reactive, sclera is icteric Neck:? Supple Respiratory:? Coarse breath sounds bilaterally, decreased at bases, adequate air entry, no wheezing Cardiac:? S1-S2 normal, regular rate and rhythm Abdomen:? Soft, nontender, nondistended, hypoactive bowel sound Extremities:? No edema, palpable pedal pulses, lower extremities have muscular rigidity Neuro:? Patient is intubated, off sedation, opens her eyes, follows simple commands in all extremities weaker in upper extremity Skin:? Spider nevi on the upper part of her torso Psych:? Unable to assess at this time Objective Data Vital Signs Vital Signs: Vital Signs - 24 hr 05/01/24 13:00 05/01/24 13:47 05/01/24 13:47 Temperature Pulse Rate 80 76 76 Pulse Rate [Monitor] Respiratory Rate 20 Blood Pressure 140/80 Pulse Oximetry 94 Oxygen Delivery Mechanical Ventilation Fraction of Inspired Oxygen 80 05/01/24 13:56 05/01/24 14:00 05/01/24 14:00 Temperature 99.1 F Pulse Rate 74 75 75 Pulse Rate [Monitor] Respiratory Rate 20 20 20 Blood Pressure 104/53 L Pulse Oximetry 95 Oxygen Delivery Fraction of Inspired Oxygen 05/01/24 14:00 05/01/24 14:00 05/01/24 15:00 Temperature Pulse Rate 75 89 72 Pulse Rate [Monitor] Respiratory Rate 20 Blood Pressure 103/54 L Pulse Oximetry Oxygen Delivery Fraction of Inspired Oxygen 05/01/24 16:00 05/01/24 16:00 05/01/24 16:00 Temperature 99.4 F Pulse Rate 80 Pulse Rate [Monitor] 79 Respiratory Rate 20 Blood Pressure 140/65 Pulse Oximetry 94 Oxygen Delivery Fraction of Inspired Oxygen 80 05/01/24 16:00 05/01/24 16:00 05/01/24 16:00 Temperature Pulse Rate 79 79 Pulse Rate [Monitor] Respiratory Rate 20 20 Blood Pressure Pulse Oximetry 94 Oxygen Delivery Mechanical Ventilation Fraction of Inspired Oxygen 80 05/01/24 16:00 05/01/24 16:50 05/01/24 17:00 Temperature Pulse Rate 79 80 80 Pulse Rate [Monitor] Respiratory Rate Blood Pressure 117/60 Pulse Oximetry 94 Oxygen Delivery Mechanical Ventilation Fraction of Inspired Oxygen 80 05/01/24 18:00 05/01/24 18:00 05/01/24 18:00 Temperature 99.3 F Pulse Rate 76 78 78 Pulse Rate [Monitor] Respiratory Rate 20 20 20 Blood Pressure 108/54 L Pulse Oximetry 94 Oxygen Delivery Fraction of Inspired Oxygen 05/01/24 18:00 05/01/24 20:00 05/01/24 20:00 Temperature Pulse Rate 71 82 Pulse Rate [Monitor] 82 Respiratory Rate 21 H Blood Pressure 129/65 Pulse Oximetry 94 Oxygen Delivery Mechanical Ventilation Fraction of Inspired Oxygen 80 05/01/24 20:00 05/01/24 20:00 05/01/24 20:00 Temperature 98.5 F Pulse Rate 83 82 Pulse Rate [Monitor] Respiratory Rate 21 H Blood Pressure 129/65 Pulse Oximetry 94 Oxygen Delivery Fraction of Inspired Oxygen 80 05/01/24 21:32 05/01/24 21:37 05/01/24 22:00 Temperature Pulse Rate 70 70 65 Pulse Rate [Monitor] Respiratory Rate 20 Blood Pressure Pulse Oximetry 97 Oxygen Delivery Mechanical Ventilation Fraction of Inspired Oxygen 80 05/01/24 22:00 05/01/24 22:50 05/02/24 00:00 Temperature Pulse Rate 65 73 Pulse Rate [Monitor] 68 Respiratory Rate 20 Blood Pressure 99/53 L 99/51 L Pulse Oximetry 98 98 Oxygen Delivery Mechanical Ventilation Fraction of Inspired Oxygen 70 05/02/24 00:00 05/02/24 00:00 05/02/24 00:00 Temperature Pulse Rate 68 69 Pulse Rate [Monitor] Respiratory Rate 20 Blood Pressure Pulse Oximetry 97 Oxygen Delivery Mechanical Ventilation Fraction of Inspired Oxygen 80 80 05/02/24 00:00 05/02/24 02:00 05/02/24 02:00 Temperature 97.8 F 97.2 F L Pulse Rate 68 75 75 Pulse Rate [Monitor] Respiratory Rate 20 20 Blood Pressure 99/51 L 127/72 Pulse Oximetry 97 97 Oxygen Delivery Fraction of Inspired Oxygen 05/02/24 02:00 05/02/24 02:32 05/02/24 02:32 Temperature Pulse Rate 80 80 Pulse Rate [Monitor] Respiratory Rate 20 Blood Pressure Pulse Oximetry 97 Oxygen Delivery Mechanical Ventilation Fraction of Inspired Oxygen 70 70 05/02/24 02:52 05/02/24 04:00 05/02/24 04:00 Temperature Pulse Rate 79 68 Pulse Rate [Monitor] 68 Respiratory Rate 20 20 Blood Pressure 102/54 L Pulse Oximetry 98 Oxygen Delivery Mechanical Ventilation Fraction of Inspired Oxygen 70 05/02/24 04:00 05/02/24 04:00 05/02/24 05:20 Temperature 97.2 F L Pulse Rate 67 68 82 Pulse Rate [Monitor] Respiratory Rate 20 Blood Pressure 102/54 L Pulse Oximetry 98 93 Oxygen Delivery Mechanical Ventilation Fraction of Inspired Oxygen 70 05/02/24 06:00 05/02/24 06:00 05/02/24 06:35 Temperature Pulse Rate 68 68 Pulse Rate [Monitor] Respiratory Rate 20 Blood Pressure 103/57 L Pulse Oximetry 98 Oxygen Delivery Fraction of Inspired Oxygen 60 05/02/24 07:43 05/02/24 07:49 05/02/24 07:58 Temperature Pulse Rate 70 86 87 Pulse Rate [Monitor] Respiratory Rate 20 22 H Blood Pressure Pulse Oximetry 93 Oxygen Delivery Mechanical Ventilation Fraction of Inspired Oxygen 60 05/02/24 08:00 05/02/24 08:00 05/02/24 10:00 Temperature 98.2 F 98.7 F Pulse Rate 87 82 Pulse Rate [Monitor] Respiratory Rate 22 H 18 Blood Pressure 126/76 120/71 Pulse Oximetry 93 92 Oxygen Delivery Mechanical Ventilation Fraction of Inspired Oxygen 70 05/02/24 11:09 Temperature Pulse Rate 83 Pulse Rate [Monitor] Respiratory Rate Blood Pressure Pulse Oximetry 92 Oxygen Delivery Mechanical Ventilation Fraction of Inspired Oxygen 60 Intake/Output Intake/Output: Intake & Output 04/29/24 04/30/24 05/01/24 05/02/24 23:59 23:59 23:59 23:59 Intake Total 1603.0 5748.4 3391.1 1022 Output Total 1999 1000 3800 750 Balance -397.0 4748.4 -408.9 272 Meds/Results Medications: Active Medications Generic Name Dose Route Start Last Admin Trade Name Freq PRN Reason Stop Dose Admin Albuterol/Ipratropium 3 ml 04/30/24 14:00 05/02/24 07:42 Ipratropium 0.5 Mg/Albuterol Sulfate 2.5 Mg Ampul.Neb 3 Ml NEBULIZE 3 ml Q6HRT MICHOACANO Administration Dextrose 12.5 gm 04/26/24 02:36 Dextrose 50% 25 Gm/50 Ml Syringe IV PUSH PRN PRN Hypoglycemia Protocol Folic Acid 1 mg 04/30/24 09:00 05/02/24 09:49 Folic Acid 1 Mg/0.2 Ml Inj IV PUSH 1 mg QAM MICHOACANO Administration Glucagon 1 mg 04/26/24 02:36 Glucagon For Inj 1 Mg Vial IM PRN PRN Hypoglycemia Protocol Glucose 15 gm 04/26/24 02:36 Glucose Oral Gel 15 Gm Of Glucse In 37.5 Gm Tube PO PRN PRN Hypoglycemia Protocol Dextrose 1,000 mls @ 100 mls/hr 04/26/24 02:36 Dextrose 5% 1,000 Ml IVPB PRN PRN Hypoglycemia Protocol Doxycycline Hyclate 100 mg in 100 mls @ 100 mls/hr 04/29/24 17:00 05/02/24 04:53 Vibramycin 100 Mg/Ns 100 Ml IVPB 100 mls/hr Q12H MICHOACANO Administration Cefepime HCl 2 gm in 50 mls @ 100 mls/hr 04/29/24 20:00 05/02/24 11:45 Maxipime 2 Gm/Ns 50 Ml IVPB 100 mls/hr Q8H MICHOACANO Administration Ibuprofen 400 mg 04/26/24 01:26 04/27/24 01:10 Ibuprofen 400 Mg Tablet PO 400 mg Q6H PRN Administration Mild Pain (1-3) or Fever Lactulose 20 gm 05/03/24 09:00 Lactulose 20 Gm/30 Ml Udc PO DAILY MICHOACANO Multi-Ingred Cream/Lotion/Oil/Oint 1 applic 04/30/24 09:00 05/02/24 10:15 Mineral Oil/White Petrolatum Ointment EACH EYE 1 applic Q12HR MICHOACANO Administration Ondansetron HCl 4 mg 04/26/24 01:26 Ondansetron Inj 4 Mg/2 Ml Vial IV PUSH Q4H PRN Nausea Pantoprazole Sodium 40 mg 04/30/24 09:00 05/02/24 09:49 Pantoprazole Sodium Iv 40 Mg Vial IV PUSH 40 mg DAILY MICHOACANO Administration Rifaximin 550 mg 04/29/24 09:00 05/02/24 09:49 Rifaximin 550 Mg Tablet FEED TUBE 550 mg Q12HR MICHOACANO Administration Sodium Chloride 20 ml 04/30/24 08:26 Central Line Flush IV PUSH PRN PRN after blood draws Sodium Chloride 10 ml 04/30/24 08:26 Central Line Flush IV PUSH PRN PRN with TPN bag changes Sodium Chloride 10 ml 04/30/24 14:00 05/02/24 06:30 Central Line Flush IV PUSH 10 ml Q8HR MICHOACANO Administration Radiology Results: ITS Impressions Cervical Spine CT 04/25/24 19:55 IMPRESSION: No acute fracture or traumatic malalignment in the cervical spine. Abdomen Ultrasound 04/25/24 21:27 IMPRESSION: Cirrhosis with portal hypertension. Cholelithiasis. Pancreatic duct dilation. Chest/Abdomen/Pelvis CTA 04/25/24 21:32 IMPRESSION: Limited evaluation of the segmental and subsegmental pulmonary arteries. No central pulmonary embolus detected. Mild interstitial pulmonary edema. No pleural effusion is detected. Cirrhosis with portal hypertension. Chronic pancreatitis with marked pancreatic duct dilation. Correlate with pancreatic labs. ADDENDUM: 04/29/24 1515 There is an 11 mm nodule in left lung upper lobe suspicious for primary bronchogenic carcinoma. Noncontrast low-dose chest CT is recommended in [address] 04/28/24 10:30 IMPRESSION: 1. Stable appearance of mild age-related changes including mild diffuse volume loss and mild scattered white matter hypoattenuation consistent with chronic small vessel ischemic disease. No acute intracranial process. Abdomen X-Ray 04/29/24 16:22 IMPRESSION: 1. Nasogastric tube tip in the distal stomach. Chest X-Ray 05/02/24 06:34 Impression: Patchy bibasilar pulmonary edema/atelectasis versus pneumonia. Correlate clinically. Small right pleural effusion. Support tubes, as above. Labs Labs: Laboratory Results - last 24 hr 05/01/24 05/01/24 05/02/24 18:14 23:01 05:20 WBC RBC Hgb Hct MCV MCH MCHC RDW Plt Count MPV Immature Gran % (Auto) Neut % (Auto) Lymph % (Auto) [place] % (Auto) Eos % (Auto) Baso % (Auto) Lymph # (Auto) [place] # (Auto) Eos # (Auto) Baso # (Auto) Abs Immat Gran (auto) Absolute Neuts (auto) Absolute Nucleated RBC Nucleated RBC % % Immature Plt Fraction PT INR APTT Puncture Site Right radial ABG pH 7.501 H ABG pCO2 25.0 L ABG pO2 123.0 H ABG PO2/FiO2 Ratio 1.76 ABG HCO3 19.1 L ABG O2 Saturation 98.8 ABG O2 Content 17.6 ABG Base Excess -2.6 A-a Gradient 349.2 Oxyhemoglobin 98.1 Carboxyhemoglobin 0.3 Methemoglobin 0.3 Reduced Hemoglobin 1.3 Total Hemoglobin 12.6 O2 Delivery Device Ventilator O2 Liters/Min Not Reportable Minute Volume Not Reportable Vent Rate 20 Vent Mode Cmv FiO2 70 Tidal Volume 400 PEEP 8 Peak Inspir Pressure Not Reportable Pressure Support Not Reportable Sodium Potassium Chloride Carbon Dioxide Anion Gap BUN Creatinine Estim Creat Clear Calc Estimated GFR Glucose POC Capillary Glucose 157 H 131 H Lactic Acid Calcium Phosphorus Magnesium Total Bilirubin AST ALT Alkaline Phosphatase Ammonia Total Protein Albumin Vancomycin Trough 05/02/24 05/02/24 06:13 11:38 WBC 7.5 RBC 3.39 L Hgb 11.7 L Hct 33.6 L MCV 99.1 MCH 34.5 H MCHC 34.8 RDW 13.5 Plt Count 71 L MPV 11.0 H Immature Gran % (Auto) 0.7 H Neut % (Auto) 65.8 Lymph % (Auto) 13.9 L [place] % (Auto) 17.0 H Eos % (Auto) 2.1 Baso % (Auto) 0.5 Lymph # (Auto) 1.04 [place] # (Auto) 1.3 H Eos # (Auto) 0.2 Baso # (Auto) 0.0 Abs Immat Gran (auto) 0.05 H Absolute Neuts (auto) 4.9 Absolute Nucleated RBC 0.000 Nucleated RBC % 0.0 % Immature Plt Fraction 4.9 PT 22.8 H INR 2.0 APTT 41.7 H Puncture Site ABG pH ABG pCO2 ABG pO2 ABG PO2/FiO2 Ratio ABG HCO3 ABG O2 Saturation ABG O2 Content ABG Base Excess A-a Gradient Oxyhemoglobin Carboxyhemoglobin Methemoglobin Reduced Hemoglobin Total Hemoglobin O2 Delivery Device O2 Liters/Min Minute Volume Vent Rate Vent Mode FiO2 Tidal Volume PEEP Peak Inspir Pressure Pressure Support Sodium 136 L Potassium 3.0 L Chloride 107 Carbon Dioxide 24 Anion Gap 5 BUN 8 D Creatinine 0.40 L Estim Creat Clear Calc 132 Estimated GFR > 60 Glucose 107 POC Capillary Glucose 114 H Lactic Acid 1.8 Calcium 8.6 Phosphorus 2.0 L Magnesium 1.4 L Total Bilirubin 3.7 H AST 42 H ALT 21 Alkaline Phosphatase 104 Ammonia 33 H Total Protein 6.0 L Albumin 2.7 L Vancomycin Trough 18.6 Quality VTE Prophylaxis VTE prophylaxis: mechanical ordered
[2024-05-02] MEDS: dexmedeTOMIDine 400 MCG/100 ML 400 MCG/100 ML BAG IV CONT (12:26)
--- NOTE | 2024-05-02 14:58 | WPDGIPROGNO ---
Progress Note: A&P Assessment and Plan (1) Alcoholic cirrhosis: Qualifiers: Ascites presence: unspecified Qualified Code(s): K70.30 - Alcoholic cirrhosis of liver without ascites Code(s): K70.30 - Alcoholic cirrhosis of liver without ascites Status: Acute Assessment and Plan: still sick and intubated, on medical support on lactulose for encephalopathy bilirubin 3.7 but elevated inr 2 discriminant function 43, prognosis is guarded- no steroids used because of sepsis patient has been accepted by hepatology service in [facility] on tube feeding by NGT (2) Hepatic encephalopathy: Code(s): K76.82 - Hepatic encephalopathy Status: Acute Assessment and Plan: multifactorial (3) Chronic pancreatitis: Code(s): K86.1 - Other chronic pancreatitis Status: Acute Assessment and Plan: based on imaging probably will need MRCP as outpatient in few months (4) Pancreatic duct dilated: Code(s): K86.89 - Other specified diseases of pancreas Status: Acute (5) Elevated liver enzymes: Code(s): R74.8 - Abnormal levels of other serum enzymes Status: Acute Assessment and Plan: monitor (6) Acute hypoxic respiratory failure: Code(s): J96.01 - Acute respiratory failure with hypoxia Status: Acute Assessment and Plan: by primary (7) Hospital-acquired pneumonia: Code(s): J18.9 - Pneumonia, unspecified organism; Y95 - Nosocomial condition Status: Acute Assessment and Plan: on abx (8) Atrial fibrillation with rapid ventricular response: Code(s): I48.91 - Unspecified atrial fibrillation Status: Acute Assessment and Plan: treated (9) Coagulopathy: Code(s): D68.9 - Coagulation defect, unspecified Status: Acute Assessment and Plan: elevated inr from decompensated cirrhosis driven by a high discriminant function Subjective Date/time seen: 05/02/24 14:58 Interval history: no changes, still intubated Review of Systems Review of Systems: All systems reviewed & are unremarkable except as noted in HPI and below Exam Narrative: General: Intubated and sedated in no acute distress, chronically ill appearing HEENT:? Pupils equal and reactive, sclera is icteric, NGT in place Neck:? Supple Respiratory:? Coarse breath sounds bilaterally, decreased at bases, no wheezing Cardiac:? S1-S2 normal, regular rate and rhythm Abdomen:? Soft, nontender, nondistended, hypoactive bowel sound Extremities:? No edema, palpable pedal pulses, lower extremities have muscular rigidity Neuro:? Patient is sedated, intubated, does not open her eyes or follow simple commands, does withdraw to pain in all extremities Skin:? Spider nevi on the upper part of her torso Psych:? Unable to assess at this time Objective Data Vital Signs Vital Signs: Vital Signs - 24 hr 05/01/24 15:00 05/01/24 16:00 05/01/24 16:00 Temperature 99.4 F Pulse Rate 72 80 Pulse Rate [Monitor] Respiratory Rate 20 Blood Pressure 103/54 L 140/65 Pulse Oximetry 94 Oxygen Delivery Fraction of Inspired Oxygen 80 05/01/24 16:00 05/01/24 16:00 05/01/24 16:00 Temperature Pulse Rate 79 79 Pulse Rate [Monitor] 79 Respiratory Rate 20 20 Blood Pressure Pulse Oximetry Oxygen Delivery Fraction of Inspired Oxygen 05/01/24 16:00 05/01/24 16:00 05/01/24 16:50 Temperature Pulse Rate 79 80 Pulse Rate [Monitor] Respiratory Rate Blood Pressure Pulse Oximetry 94 94 Oxygen Delivery Mechanical Ventilation Mechanical Ventilation Fraction of Inspired Oxygen 80 80 05/01/24 17:00 05/01/24 18:00 05/01/24 18:00 Temperature 99.3 F Pulse Rate 80 76 78 Pulse Rate [Monitor] Respiratory Rate 20 20 Blood Pressure 117/60 108/54 L Pulse Oximetry 94 Oxygen Delivery Fraction of Inspired Oxygen 05/01/24 18:00 05/01/24 18:00 05/01/24 20:00 Temperature Pulse Rate 78 71 Pulse Rate [Monitor] 82 Respiratory Rate 20 Blood Pressure 129/65 Pulse Oximetry Oxygen Delivery Fraction of Inspired Oxygen 05/01/24 20:00 05/01/24 20:00 05/01/24 20:00 Temperature Pulse Rate 82 83 Pulse Rate [Monitor] Respiratory Rate 21 H Blood Pressure Pulse Oximetry 94 Oxygen Delivery Mechanical Ventilation Fraction of Inspired Oxygen 80 80 05/01/24 20:00 05/01/24 21:32 05/01/24 21:37 Temperature 98.5 F Pulse Rate 82 70 70 Pulse Rate [Monitor] Respiratory Rate 21 H 20 Blood Pressure 129/65 Pulse Oximetry 94 97 Oxygen Delivery Mechanical Ventilation Fraction of Inspired Oxygen 80 05/01/24 22:00 05/01/24 22:00 05/01/24 22:50 Temperature Pulse Rate 65 65 73 Pulse Rate [Monitor] Respiratory Rate 20 Blood Pressure 99/53 L Pulse Oximetry 98 98 Oxygen Delivery Mechanical Ventilation Fraction of Inspired Oxygen 70 05/02/24 00:00 05/02/24 00:00 05/02/24 00:00 Temperature Pulse Rate 68 69 Pulse Rate [Monitor] 68 Respiratory Rate 20 Blood Pressure 99/51 L Pulse Oximetry 97 Oxygen Delivery Mechanical Ventilation Fraction of Inspired Oxygen 80 05/02/24 00:00 05/02/24 00:00 05/02/24 02:00 Temperature 97.8 F Pulse Rate 68 75 Pulse Rate [Monitor] Respiratory Rate 20 Blood Pressure 99/51 L Pulse Oximetry 97 Oxygen Delivery Fraction of Inspired Oxygen 80 05/02/24 02:00 05/02/24 02:00 05/02/24 02:32 Temperature 97.2 F L Pulse Rate 75 80 Pulse Rate [Monitor] Respiratory Rate 20 Blood Pressure 127/72 Pulse Oximetry 97 97 Oxygen Delivery Mechanical Ventilation Fraction of Inspired Oxygen 70 70 05/02/24 02:32 05/02/24 02:52 05/02/24 04:00 Temperature Pulse Rate 80 79 Pulse Rate [Monitor] 68 Respiratory Rate 20 20 Blood Pressure 102/54 L Pulse Oximetry Oxygen Delivery Fraction of Inspired Oxygen 05/02/24 04:00 05/02/24 04:00 05/02/24 04:00 Temperature 97.2 F L Pulse Rate 68 67 68 Pulse Rate [Monitor] Respiratory Rate 20 20 Blood Pressure 102/54 L Pulse Oximetry 98 98 Oxygen Delivery Mechanical Ventilation Fraction of Inspired Oxygen 70 05/02/24 05:20 05/02/24 06:00 05/02/24 06:00 Temperature Pulse Rate 82 68 68 Pulse Rate [Monitor] Respiratory Rate 20 Blood Pressure 103/57 L Pulse Oximetry 93 98 Oxygen Delivery Mechanical Ventilation Fraction of Inspired Oxygen 70 05/02/24 06:35 05/02/24 07:43 05/02/24 07:49 Temperature Pulse Rate 70 86 Pulse Rate [Monitor] Respiratory Rate 20 Blood Pressure Pulse Oximetry 93 Oxygen Delivery Mechanical Ventilation Fraction of Inspired Oxygen 60 60 05/02/24 07:58 05/02/24 08:00 05/02/24 08:00 Temperature 98.2 F Pulse Rate 87 87 Pulse Rate [Monitor] Respiratory Rate 22 H 22 H Blood Pressure 126/76 Pulse Oximetry 93 Oxygen Delivery Mechanical Ventilation Fraction of Inspired Oxygen 70 05/02/24 08:00 05/02/24 08:00 05/02/24 10:00 Temperature 98.7 F Pulse Rate 89 82 Pulse Rate [Monitor] Respiratory Rate 18 Blood Pressure 120/71 Pulse Oximetry 92 Oxygen Delivery Fraction of Inspired Oxygen 60 05/02/24 10:00 05/02/24 11:09 05/02/24 12:00 Temperature 98.7 F Pulse Rate 82 83 82 Pulse Rate [Monitor] Respiratory Rate 21 H Blood Pressure 127/68 Pulse Oximetry 92 94 Oxygen Delivery Mechanical Ventilation Fraction of Inspired Oxygen 60 05/02/24 12:00 05/02/24 12:00 05/02/24 12:00 Temperature Pulse Rate 82 Pulse Rate [Monitor] Respiratory Rate Blood Pressure Pulse Oximetry Oxygen Delivery Mechanical Ventilation Fraction of Inspired Oxygen 60 05/02/24 12:26 05/02/24 14:00 05/02/24 14:00 Temperature 98.7 F Pulse Rate 87 65 65 Pulse Rate [Monitor] Respiratory Rate 26 H 20 Blood Pressure 89/48 L Pulse Oximetry 94 Oxygen Delivery Fraction of Inspired Oxygen 05/02/24 14:03 05/02/24 14:07 05/02/24 14:14 Temperature Pulse Rate 65 67 68 Pulse Rate [Monitor] Respiratory Rate 20 20 Blood Pressure Pulse Oximetry 94 Oxygen Delivery Mechanical Ventilation Fraction of Inspired Oxygen 60 Intake/Output Intake/Output: Intake & Output 04/29/24 04/30/24 05/01/24 05/02/24 23:59 23:59 23:59 23:59 Intake Total 1603.0 5748.4 3391.1 1072 Output Total 1999 1000 3800 750 Balance -397.0 4748.4 -408.9 322 Meds/Results Medications: Active Medications Generic Name Dose Route Start Last Admin Trade Name Freq PRN Reason Stop Dose Admin Albuterol/Ipratropium 3 ml 04/30/24 14:00 05/02/24 14:02 Ipratropium 0.5 Mg/Albuterol Sulfate 2.5 Mg Ampul.Neb 3 Ml NEBULIZE 3 ml Q6HRT MICHOACANO Administration Dextrose 12.5 gm 04/26/24 02:36 Dextrose 50% 25 Gm/50 Ml Syringe IV PUSH PRN PRN Hypoglycemia Protocol Folic Acid 1 mg 04/30/24 09:00 05/02/24 09:49 Folic Acid 1 Mg/0.2 Ml Inj IV PUSH 1 mg QAM MICHOACANO Administration Glucagon 1 mg 04/26/24 02:36 Glucagon For Inj 1 Mg Vial IM PRN PRN Hypoglycemia Protocol Glucose 15 gm 04/26/24 02:36 Glucose Oral Gel 15 Gm Of Glucse In 37.5 Gm Tube PO PRN PRN Hypoglycemia Protocol Dextrose 1,000 mls @ 100 mls/hr 04/26/24 02:36 Dextrose 5% 1,000 Ml IVPB PRN PRN Hypoglycemia Protocol Doxycycline Hyclate 100 mg in 100 mls @ 100 mls/hr 04/29/24 17:00 05/02/24 04:53 Vibramycin 100 Mg/Ns 100 Ml IVPB 100 mls/hr Q12H MICHOACANO Administration Cefepime HCl 2 gm in 50 mls @ 100 mls/hr 04/29/24 20:00 05/02/24 12:15 Maxipime 2 Gm/Ns 50 Ml IVPB Infused Q8H MICHOACANO Infusion Dexmedetomidine HCl 400 mcg in 100 mls @ 3.635 mls/hr 05/02/24 12:25 05/02/24 12:26 Precedex 400 Mcg/100 Ml IV CONT 0.2 mcg/kg/hr .[id number] MICHOACANO 3.64 mls/hr Administration Protocol 0.2 MCG/KG/HR Ibuprofen 400 mg 04/26/24 01:26 04/27/24 01:10 Ibuprofen 400 Mg Tablet PO 400 mg Q6H PRN Administration Mild Pain (1-3) or Fever Lactulose 20 gm 05/03/24 09:00 Lactulose 20 Gm/30 Ml Udc PO DAILY MICHOACANO Multi-Ingred Cream/Lotion/Oil/Oint 1 applic 04/30/24 09:00 05/02/24 10:15 Mineral Oil/White Petrolatum Ointment EACH EYE 1 applic Q12HR MICHOACANO Administration Ondansetron HCl 4 mg 04/26/24 01:26 Ondansetron Inj 4 Mg/2 Ml Vial IV PUSH Q4H PRN Nausea Pantoprazole Sodium 40 mg 04/30/24 09:00 05/02/24 09:49 Pantoprazole Sodium Iv 40 Mg Vial IV PUSH 40 mg DAILY MICHOACANO Administration Rifaximin 550 mg 04/29/24 09:00 05/02/24 09:49 Rifaximin 550 Mg Tablet FEED TUBE 550 mg Q12HR MICHOACANO Administration Sodium Chloride 20 ml 04/30/24 08:26 Central Line Flush IV PUSH PRN PRN after blood draws Sodium Chloride 10 ml 04/30/24 08:26 Central Line Flush IV PUSH PRN PRN with TPN bag changes Sodium Chloride 10 ml 04/30/24 14:00 05/02/24 14:42 Central Line Flush IV PUSH 10 ml Q8HR MICHOACANO Administration Radiology Results: ITS Impressions Cervical Spine CT 04/25/24 19:55 IMPRESSION: No acute fracture or traumatic malalignment in the cervical spine. Abdomen Ultrasound 04/25/24 21:27 IMPRESSION: Cirrhosis with portal hypertension. Cholelithiasis. Pancreatic duct dilation. Chest/Abdomen/Pelvis CTA 04/25/24 21:32 IMPRESSION: Limited evaluation of the segmental and subsegmental pulmonary arteries. No central pulmonary embolus detected. Mild interstitial pulmonary edema. No pleural effusion is detected. Cirrhosis with portal hypertension. Chronic pancreatitis with marked pancreatic duct dilation. Correlate with pancreatic labs. ADDENDUM: 04/29/24 1515 There is an 11 mm nodule in left lung upper lobe suspicious for primary bronchogenic carcinoma. Noncontrast low-dose chest CT is recommended in [address] 04/28/24 10:30 IMPRESSION: 1. Stable appearance of mild age-related changes including mild diffuse volume loss and mild scattered white matter hypoattenuation consistent with chronic small vessel ischemic disease. No acute intracranial process. Abdomen X-Ray 04/29/24 16:22 IMPRESSION: 1. Nasogastric tube tip in the distal stomach. Chest X-Ray 05/02/24 06:34 Impression: Patchy bibasilar pulmonary edema/atelectasis versus pneumonia. Correlate clinically. Small right pleural effusion. Support tubes, as above. Labs Labs: Laboratory Results - last 24 hr 05/01/24 05/01/24 05/01/24 12:50 18:14 23:01 WBC RBC Hgb Hct MCV MCH MCHC RDW Plt Count MPV Immature Gran % (Auto) Neut % (Auto) Lymph % (Auto) Colbert % (Auto) Eos % (Auto) Baso % (Auto) Lymph # (Auto) Colbert # (Auto) Eos # (Auto) Baso # (Auto) Abs Immat Gran (auto) Absolute Neuts (auto) Absolute Nucleated RBC Nucleated RBC % % Immature Plt Fraction PT INR APTT Puncture Site ABG pH ABG pCO2 ABG pO2 ABG PO2/FiO2 Ratio ABG HCO3 ABG O2 Saturation ABG O2 Content ABG Base Excess A-a Gradient Oxyhemoglobin Carboxyhemoglobin Methemoglobin Reduced Hemoglobin Total Hemoglobin O2 Delivery Device O2 Liters/Min Minute Volume Vent Rate Vent Mode FiO2 Tidal Volume PEEP Peak Inspir Pressure Pressure Support Sodium Potassium Chloride Carbon Dioxide Anion Gap BUN Creatinine Estim Creat Clear Calc Estimated GFR Glucose POC Capillary Glucose 157 H 131 H Lactic Acid Calcium Phosphorus Magnesium Total Bilirubin AST ALT Alkaline Phosphatase Ammonia Total Protein Albumin Stool Rotavirus Antigen Vancomycin Trough 05/02/24 05/02/24 05/02/24 05:20 06:13 11:38 WBC 7.5 RBC 3.39 L Hgb 11.7 L Hct 33.6 L MCV 99.1 MCH 34.5 H MCHC 34.8 RDW 13.5 Plt Count 71 L MPV 11.0 H Immature Gran % (Auto) 0.7 H Neut % (Auto) 65.8 Lymph % (Auto) 13.9 L Colbert % (Auto) 17.0 H Eos % (Auto) 2.1 Baso % (Auto) 0.5 Lymph # (Auto) 1.04 Colbert # (Auto) 1.3 H Eos # (Auto) 0.2 Baso # (Auto) 0.0 Abs Immat Gran (auto) 0.05 H Absolute Neuts (auto) 4.9 Absolute Nucleated RBC 0.000 Nucleated RBC % 0.0 % Immature Plt Fraction 4.9 PT 22.8 H INR 2.0 APTT 41.7 H Puncture Site Right radial ABG pH 7.501 H ABG pCO2 25.0 L ABG pO2 123.0 H ABG PO2/FiO2 Ratio 1.76 ABG HCO3 19.1 L ABG O2 Saturation 98.8 ABG O2 Content 17.6 ABG Base Excess -2.6 A-a Gradient 349.2 Oxyhemoglobin 98.1 Carboxyhemoglobin 0.3 Methemoglobin 0.3 Reduced Hemoglobin 1.3 Total Hemoglobin 12.6 O2 Delivery Device Ventilator O2 Liters/Min Not Reportable Minute Volume Not Reportable Vent Rate 20 Vent Mode Cmv FiO2 70 Tidal Volume 400 PEEP 8 Peak Inspir Pressure Not Reportable Pressure Support Not Reportable Sodium 136 L Potassium 3.0 L Chloride 107 Carbon Dioxide 24 Anion Gap 5 BUN 8 D Creatinine 0.40 L Estim Creat Clear Calc 132 Estimated GFR > 60 Glucose 107 POC Capillary Glucose 114 H Lactic Acid 1.8 Calcium 8.6 Phosphorus 2.0 L Magnesium 1.4 L Total Bilirubin 3.7 H AST 42 H ALT 21 Alkaline Phosphatase 104 Ammonia 33 H Total Protein 6.0 L Albumin 2.7 L Stool Rotavirus Antigen Vancomycin Trough 18.6
--- NOTE | 2024-05-02 15:45 | P.PNIM_ITS ---
Progress Note: A&P Assessment and Plan (1) Acute hypoxic respiratory failure: Code(s): J96.01 - Acute respiratory failure with hypoxia Status: Acute Assessment and Plan: Acute respiratory failure likely related to pneumonia -04/29: Intubated. As patient had Increased oxygen requirements, hypoxia with difficulty in breathing -CTA chest on 04/25/2024 was negative for PE, -continue bronchodilators -continue cefepime, doxycycline vancomycin (04/29) -patient on CMV mode of ventilation, 70 % FiO2 and peep of 8, low tidal volume strategy, wean FiO2 to maintain O2 sats greater than 92% -chest x-ray reviewed, patchy bilateral pulmonary edema/atelectasis versus pneumonia. -off all sedation -daily SBT and SAT (2) Cirrhosis: Code(s): K74.60 - Unspecified cirrhosis of liver Status: Acute Assessment and Plan: Patient with history of cirrhosis, likely alcoholic -given hyperbilirubinemia, marked pancreatic duct dilatation, elevated LFTs will have GI evaluate the patient -given her cirrhosis with elevation in her LFTs, elevated bilirubin, elevated INR, normal creatinine -Maddrey discriminant factor is 50, will stay away from steroid per GI, given her infection/sepsis/septic shock -05/01: discussed with GI/hepatology at [facility] who has accepted the patient in consultation. After which I -discussed with the MICU fellow, patient was accepted ICU under Dr. Allen in [facility]. Will be transferred when they have a bed available. 04/25/2024: CT chest/abdomen/pelvis IMPRESSION: Limited evaluation of the segmental and subsegmental pulmonary arteries. No central pulmonary embolus detected. Mild interstitial pulmonary edema. No pleural effusion is detected. Cirrhosis with portal hypertension. Chronic pancreatitis with marked pancreatic duct dilation. Correlate with pancreatic labs. (3) Hepatic encephalopathy: Code(s): K76.82 - Hepatic encephalopathy Status: Acute Assessment and Plan: Patient with hepatic encephalopathy with hyperbilirubinemia -on lactulose and rifaximin -ammonia levels are improving, continue to monitor -decrease lactulose to patient is having significant bowel movement and improvement in her ammonia level (4) Hyperbilirubinemia: Code(s): E80.6 - Other disorders of bilirubin metabolism Status: Acute Assessment and Plan: Likely related to cirrhosis -hepatitis panel negative -right upper quadrant ultrasound showed cirrhosis with portal hypertension, cholelithiasis, pancreatic duct dilatation (5) Hospital-acquired pneumonia: Code(s): J18.9 - Pneumonia, unspecified organism; Y95 - Nosocomial condition Status: Acute Assessment and Plan: Patient with respiratory failure, increased oxygen requirements, CTA negative for PE, chest x-ray with possible pneumonia -continue antibiotics as above -04/28/2024: Preliminary blood cultures are negative x2 -04/30/2024: Sputum cultures Yeast - (6) UTI (urinary tract infection): Qualifiers: Hematuria presence: without hematuria Urinary tract infection type: acute cystitis Qualified Code(s): N30.00 - Acute cystitis without hematuria Code(s): N39.0 - Urinary tract infection, site not specified Status: Acute Assessment and Plan: 04/25 urine cultures growing E coli pansensitive -continue antibiotics as above (7) Thrombocytopenia: Code(s): D69.6 - Thrombocytopenia, unspecified Status: Acute Assessment and Plan: Thrombocytopenia likely related to chronic alcohol use, cirrhosis, acute critical care illness -no active bleeding noted -continue to monitor (8) Diarrhea: Code(s): R19.7 - Diarrhea, unspecified Status: Acute Assessment and Plan: Patient with diarrhea -C diff negative -stool cultures obtained and pending -continue antibiotics as above -FMS in place Plan DVT prophylaxis: SCDs, no chemoprophylaxis due to thrombocytopenia Stress ulcer prophylaxis: Protonix Nutrition: Continue trickle tube feeds, will slowly increase since she is at risk for refeeding syndrome Code Status: Full code Subjective Date/time seen: 05/02/24 15:45 Interval history: intubated and sedated Review of Systems Review of Systems: All systems reviewed & are unremarkable except as noted in HPI and below ROS unobtainable: Yes unobtainable due to endotracheal tube, unobtainable due to medical condition and unobtainable due to mental status Exam Narrative: General: Intubated, and sedated HEENT:? Pupils equal and reactive, sclera is icteric Neck:? Supple Respiratory:? Coarse breath sounds bilaterally, decreased at bases, adequate air entry, no wheezing Cardiac:? S1-S2 normal, regular rate and rhythm Abdomen:? Soft, nontender, nondistended, hypoactive bowel sound Extremities:? No edema, palpable pedal pulses, lower extremities have muscular rigidity Neuro:? Patient is intubated, off sedation, opens her eyes, follows simple commands in all extremities weaker in upper extremity Skin:? Spider nevi on the upper part of her torso Psych:? Unable to assess at this time Const: Other: Disheveled, appears older than stated age, height weight proportionate HENMT: Other: Dry mucous membranes with poor dentition some of the teeth the patient has remaining appear to be loose, patient is dried orange in whitish material to her lips as well as adherent to her gums and teeth, head is normocephalic atraumatic Eyes: Other: Pupils are constricted but sluggishly reactive unequal, mild scleral icterus bilaterally, no conjunctival pallor Neck: Other: Submandibular lymphadenopathy, no gross thyromegaly, no JVD Resp: Other: Equal breath sounds bilaterally, occasional wheezing Cardio: Other: Regular rate, regular rhythm, 2+ bilateral radial pedal pulses GI: Other: Slightly distended, nontender, mild hepatomegaly, normoactive bowel sounds Skin: Other: Hot to touch at the patient core body but cool fingers, still ectasias across the chest with some scattered petechiae and the chest in cheeks the, mild jaundice Neuro: Other: Patient is oriented to name only she mumbled something about being at home, she stated she needed get her mom, she could not answer questions regarding date and time or recent events, are the patient is alert and moving all extremities and was able to move herself down to the foot of the bed Extrem: Other: Clubbing of the nail beds in both hands and feet, no cyanosis, no edema Psych: Other: Confused, cooperative, poor judgment and insight Objective Data Vital Signs Vital Signs: Vital Signs - 24 hr 05/01/24 16:00 05/01/24 16:00 05/01/24 16:00 Temperature 99.4 F Pulse Rate 80 Pulse Rate [Monitor] 79 Respiratory Rate 20 Blood Pressure 140/65 Pulse Oximetry 94 Oxygen Delivery Fraction of Inspired Oxygen 80 05/01/24 16:00 05/01/24 16:00 05/01/24 16:00 Temperature Pulse Rate 79 79 Pulse Rate [Monitor] Respiratory Rate 20 20 Blood Pressure Pulse Oximetry 94 Oxygen Delivery Mechanical Ventilation Fraction of Inspired Oxygen 80 05/01/24 16:00 05/01/24 16:50 05/01/24 17:00 Temperature Pulse Rate 79 80 80 Pulse Rate [Monitor] Respiratory Rate Blood Pressure 117/60 Pulse Oximetry 94 Oxygen Delivery Mechanical Ventilation Fraction of Inspired Oxygen 80 05/01/24 18:00 05/01/24 18:00 05/01/24 18:00 Temperature 99.3 F Pulse Rate 76 78 78 Pulse Rate [Monitor] Respiratory Rate 20 20 20 Blood Pressure 108/54 L Pulse Oximetry 94 Oxygen Delivery Fraction of Inspired Oxygen 05/01/24 18:00 05/01/24 20:00 05/01/24 20:00 Temperature Pulse Rate 71 82 Pulse Rate [Monitor] 82 Respiratory Rate 21 H Blood Pressure 129/65 Pulse Oximetry 94 Oxygen Delivery Mechanical Ventilation Fraction of Inspired Oxygen 80 05/01/24 20:00 05/01/24 20:00 05/01/24 20:00 Temperature 98.5 F Pulse Rate 83 82 Pulse Rate [Monitor] Respiratory Rate 21 H Blood Pressure 129/65 Pulse Oximetry 94 Oxygen Delivery Fraction of Inspired Oxygen 80 05/01/24 21:32 05/01/24 21:37 05/01/24 22:00 Temperature Pulse Rate 70 70 65 Pulse Rate [Monitor] Respiratory Rate 20 Blood Pressure Pulse Oximetry 97 Oxygen Delivery Mechanical Ventilation Fraction of Inspired Oxygen 80 05/01/24 22:00 05/01/24 22:50 05/02/24 00:00 Temperature Pulse Rate 65 73 Pulse Rate [Monitor] 68 Respiratory Rate 20 Blood Pressure 99/53 L 99/51 L Pulse Oximetry 98 98 Oxygen Delivery Mechanical Ventilation Fraction of Inspired Oxygen 70 05/02/24 00:00 05/02/24 00:00 05/02/24 00:00 Temperature Pulse Rate 68 69 Pulse Rate [Monitor] Respiratory Rate 20 Blood Pressure Pulse Oximetry 97 Oxygen Delivery Mechanical Ventilation Fraction of Inspired Oxygen 80 80 05/02/24 00:00 05/02/24 02:00 05/02/24 02:00 Temperature 97.8 F 97.2 F L Pulse Rate 68 75 75 Pulse Rate [Monitor] Respiratory Rate 20 20 Blood Pressure 99/51 L 127/72 Pulse Oximetry 97 97 Oxygen Delivery Fraction of Inspired Oxygen 05/02/24 02:00 05/02/24 02:32 05/02/24 02:32 Temperature Pulse Rate 80 80 Pulse Rate [Monitor] Respiratory Rate 20 Blood Pressure Pulse Oximetry 97 Oxygen Delivery Mechanical Ventilation Fraction of Inspired Oxygen 70 70 05/02/24 02:52 05/02/24 04:00 05/02/24 04:00 Temperature Pulse Rate 79 68 Pulse Rate [Monitor] 68 Respiratory Rate 20 20 Blood Pressure 102/54 L Pulse Oximetry 98 Oxygen Delivery Mechanical Ventilation Fraction of Inspired Oxygen 70 05/02/24 04:00 05/02/24 04:00 05/02/24 05:20 Temperature 97.2 F L Pulse Rate 67 68 82 Pulse Rate [Monitor] Respiratory Rate 20 Blood Pressure 102/54 L Pulse Oximetry 98 93 Oxygen Delivery Mechanical Ventilation Fraction of Inspired Oxygen 70 05/02/24 06:00 05/02/24 06:00 05/02/24 06:35 Temperature Pulse Rate 68 68 Pulse Rate [Monitor] Respiratory Rate 20 Blood Pressure 103/57 L Pulse Oximetry 98 Oxygen Delivery Fraction of Inspired Oxygen 60 05/02/24 07:43 05/02/24 07:49 05/02/24 07:58 Temperature Pulse Rate 70 86 87 Pulse Rate [Monitor] Respiratory Rate 20 22 H Blood Pressure Pulse Oximetry 93 Oxygen Delivery Mechanical Ventilation Fraction of Inspired Oxygen 60 05/02/24 08:00 05/02/24 08:00 05/02/24 08:00 Temperature 98.2 F Pulse Rate 87 Pulse Rate [Monitor] Respiratory Rate 22 H Blood Pressure 126/76 Pulse Oximetry 93 Oxygen Delivery Mechanical Ventilation Fraction of Inspired Oxygen 70 60 05/02/24 08:00 05/02/24 10:00 05/02/24 10:00 Temperature 98.7 F Pulse Rate 89 82 82 Pulse Rate [Monitor] Respiratory Rate 18 Blood Pressure 120/71 Pulse Oximetry 92 Oxygen Delivery Fraction of Inspired Oxygen 05/02/24 11:09 05/02/24 12:00 05/02/24 12:00 Temperature 98.7 F Pulse Rate 83 82 Pulse Rate [Monitor] Respiratory Rate 21 H Blood Pressure 127/68 Pulse Oximetry 92 94 Oxygen Delivery Mechanical Ventilation Fraction of Inspired Oxygen 60 60 05/02/24 12:00 05/02/24 12:00 05/02/24 12:26 Temperature Pulse Rate 82 87 Pulse Rate [Monitor] Respiratory Rate 26 H Blood Pressure Pulse Oximetry Oxygen Delivery Mechanical Ventilation Fraction of Inspired Oxygen 05/02/24 14:00 05/02/24 14:00 05/02/24 14:03 Temperature 98.7 F Pulse Rate 65 65 65 Pulse Rate [Monitor] Respiratory Rate 20 20 Blood Pressure 89/48 L Pulse Oximetry 94 Oxygen Delivery Fraction of Inspired Oxygen 12/16/24 14:07 05/02/24 14:14 Temperature Pulse Rate 67 68 Pulse Rate [Monitor] Respiratory Rate 20 Blood Pressure Pulse Oximetry 94 Oxygen Delivery Mechanical Ventilation Fraction of Inspired Oxygen 60 Intake/Output Intake/Output: Intake & Output 04/29/24 04/30/24 05/01/24 05/02/24 23:59 23:59 23:59 23:59 Intake Total 1603.0 5748.4 3391.1 1072 Output Total 1999 1000 3800 750 Balance -397.0 4748.4 -408.9 322 Meds/Results Medications: Active Medications Generic Name Dose Route Start Last Admin Trade Name Freq PRN Reason Stop Dose Admin Albuterol/Ipratropium 3 ml 04/30/24 14:00 05/02/24 14:02 Ipratropium 0.5 Mg/Albuterol Sulfate 2.5 Mg Ampul.Neb 3 Ml NEBULIZE 3 ml Q6HRT MICHOACANO Administration Dextrose 12.5 gm 04/26/24 02:36 Dextrose 50% 25 Gm/50 Ml Syringe IV PUSH PRN PRN Hypoglycemia Protocol Folic Acid 1 mg 04/30/24 09:00 05/02/24 09:49 Folic Acid 1 Mg/0.2 Ml Inj IV PUSH 1 mg QAM MICHOACANO Administration Glucagon 1 mg 04/26/24 02:36 Glucagon For Inj 1 Mg Vial IM PRN PRN Hypoglycemia Protocol Glucose 15 gm 04/26/24 02:36 Glucose Oral Gel 15 Gm Of Glucse In 37.5 Gm Tube PO PRN PRN Hypoglycemia Protocol Dextrose 1,000 mls @ 100 mls/hr 04/26/24 02:36 Dextrose 5% 1,000 Ml IVPB PRN PRN Hypoglycemia Protocol Doxycycline Hyclate 100 mg in 100 mls @ 100 mls/hr 04/29/24 17:00 05/02/24 04:53 Vibramycin 100 Mg/Ns 100 Ml IVPB 100 mls/hr Q12H MICHOACANO Administration Cefepime HCl 2 gm in 50 mls @ 100 mls/hr 04/29/24 20:00 05/02/24 12:15 Maxipime 2 Gm/Ns 50 Ml IVPB Infused Q8H MICHOACANO Infusion Dexmedetomidine HCl 400 mcg in 100 mls @ 3.635 mls/hr 05/02/24 12:25 05/02/24 12:26 Precedex 400 Mcg/100 Ml IV CONT 0.2 mcg/kg/hr .[id number] MICHOACANO 3.64 mls/hr Administration Protocol 0.2 MCG/KG/HR Ibuprofen 400 mg 04/26/24 01:26 04/27/24 01:10 Ibuprofen 400 Mg Tablet PO 400 mg Q6H PRN Administration Mild Pain (1-3) or Fever Lactulose 20 gm 05/03/24 09:00 Lactulose 20 Gm/30 Ml Udc PO DAILY MICHOACANO Multi-Ingred Cream/Lotion/Oil/Oint 1 applic 04/30/24 09:00 05/02/24 10:15 Mineral Oil/White Petrolatum Ointment EACH EYE 1 applic Q12HR MICHOACANO Administration Ondansetron HCl 4 mg 04/26/24 01:26 Ondansetron Inj 4 Mg/2 Ml Vial IV PUSH Q4H PRN Nausea Pantoprazole Sodium 40 mg 04/30/24 09:00 05/02/24 09:49 Pantoprazole Sodium Iv 40 Mg Vial IV PUSH 40 mg DAILY MICHOACANO Administration Rifaximin 550 mg 04/29/24 09:00 05/02/24 09:49 Rifaximin 550 Mg Tablet FEED TUBE 550 mg Q12HR MICHOACANO Administration Sodium Chloride 20 ml 04/30/24 08:26 Central Line Flush IV PUSH PRN PRN after blood draws Sodium Chloride 10 ml 04/30/24 08:26 Central Line Flush IV PUSH PRN PRN with TPN bag changes Sodium Chloride 10 ml 04/30/24 14:00 05/02/24 14:42 Central Line Flush IV PUSH 10 ml Q8HR MICHOACANO Administration Radiology Results: ITS Impressions Cervical Spine CT 04/25/24 19:55 IMPRESSION: No acute fracture or traumatic malalignment in the cervical spine. Abdomen Ultrasound 04/25/24 21:27 IMPRESSION: Cirrhosis with portal hypertension. Cholelithiasis. Pancreatic duct dilation. Chest/Abdomen/Pelvis CTA 04/25/24 21:32 IMPRESSION: Limited evaluation of the segmental and subsegmental pulmonary arteries. No central pulmonary embolus detected. Mild interstitial pulmonary edema. No pleural effusion is detected. Cirrhosis with portal hypertension. Chronic pancreatitis with marked pancreatic duct dilation. Correlate with pancreatic labs. ADDENDUM: 04/29/24 2438 There is an 11 mm nodule in left lung upper lobe suspicious for primary bronchogenic carcinoma. Noncontrast low-dose chest CT is recommended in [address] 04/28/24 10:30 IMPRESSION: 1. Stable appearance of mild age-related changes including mild diffuse volume loss and mild scattered white matter hypoattenuation consistent with chronic small vessel ischemic disease. No acute intracranial process. Abdomen X-Ray 04/29/24 16:22 IMPRESSION: 1. Nasogastric tube tip in the distal stomach. Chest X-Ray 05/02/24 06:34 Impression: Patchy bibasilar pulmonary edema/atelectasis versus pneumonia. Correlate clinically. Small right pleural effusion. Support tubes, as above. Labs Labs: Laboratory Results - last 24 hr 05/01/24 05/01/24 05/01/24 12:50 18:14 23:01 WBC RBC Hgb Hct MCV MCH MCHC RDW Plt Count MPV Immature Gran % (Auto) Neut % (Auto) Lymph % (Auto) [place] % (Auto) Eos % (Auto) Baso % (Auto) Lymph # (Auto) [place] # (Auto) Eos # (Auto) Baso # (Auto) Abs Immat Gran (auto) Absolute Neuts (auto) Absolute Nucleated RBC Nucleated RBC % % Immature Plt Fraction PT INR APTT Puncture Site ABG pH ABG pCO2 ABG pO2 ABG PO2/FiO2 Ratio ABG HCO3 ABG O2 Saturation ABG O2 Content ABG Base Excess A-a Gradient Oxyhemoglobin Carboxyhemoglobin Methemoglobin Reduced Hemoglobin Total Hemoglobin O2 Delivery Device O2 Liters/Min Minute Volume Vent Rate Vent Mode FiO2 Tidal Volume PEEP Peak Inspir Pressure Pressure Support Sodium Potassium Chloride Carbon Dioxide Anion Gap BUN Creatinine Estim Creat Clear Calc Estimated GFR Glucose POC Capillary Glucose 157 H 131 H Lactic Acid Calcium Phosphorus Magnesium Total Bilirubin AST ALT Alkaline Phosphatase Ammonia Total Protein Albumin Stool Rotavirus Antigen Vancomycin Trough 05/02/24 05/02/24 05/02/24 05:20 06:13 11:38 WBC 7.5 RBC 3.39 L Hgb 11.7 L Hct 33.6 L MCV 99.1 MCH 34.5 H MCHC 34.8 RDW 13.5 Plt Count 71 L MPV 11.0 H Immature Gran % (Auto) 0.7 H Neut % (Auto) 65.8 Lymph % (Auto) 13.9 L [place] % (Auto) 17.0 H Eos % (Auto) 2.1 Baso % (Auto) 0.5 Lymph # (Auto) 1.04 [place] # (Auto) 1.3 H Eos # (Auto) 0.2 Baso # (Auto) 0.0 Abs Immat Gran (auto) 0.05 H Absolute Neuts (auto) 4.9 Absolute Nucleated RBC 0.000 Nucleated RBC % 0.0 % Immature Plt Fraction 4.9 PT 22.8 H INR 2.0 APTT 41.7 H Puncture Site Right radial ABG pH 7.501 H ABG pCO2 25.0 L ABG pO2 123.0 H ABG PO2/FiO2 Ratio 1.76 ABG HCO3 19.1 L ABG O2 Saturation 98.8 ABG O2 Content 17.6 ABG Base Excess -2.6 A-a Gradient 349.2 Oxyhemoglobin 98.1 Carboxyhemoglobin 0.3 Methemoglobin 0.3 Reduced Hemoglobin 1.3 Total Hemoglobin 12.6 O2 Delivery Device Ventilator O2 Liters/Min Not Reportable Minute Volume Not Reportable Vent Rate 20 Vent Mode Cmv FiO2 70 Tidal Volume 400 PEEP 8 Peak Inspir Pressure Not Reportable Pressure Support Not Reportable Sodium 136 L Potassium 3.0 L Chloride 107 Carbon Dioxide 24 Anion Gap 5 BUN 8 D Creatinine 0.40 L Estim Creat Clear Calc 132 Estimated GFR > 60 Glucose 107 POC Capillary Glucose 114 H Lactic Acid 1.8 Calcium 8.6 Phosphorus 2.0 L Magnesium 1.4 L Total Bilirubin 3.7 H AST 42 H ALT 21 Alkaline Phosphatase 104 Ammonia 33 H Total Protein 6.0 L Albumin 2.7 L Stool Rotavirus Antigen Vancomycin Trough 18.6 Quality VTE Prophylaxis VTE prophylaxis: mechanical ordered
[2024-05-02 17:36] LABS: Glucose Point of Care 122 mg/dl (65-105)
--- NOTE | 2024-05-02 18:59 | PM.TDS ---
Transfer Discharge Sum: Prov Provider Date of admission: 04/26/24 01:27 Primary care physician: UNKNOWN,DOCTOR Admitting clinician: Alicia Muniz DO Consults: 04/29/24 Consult to Dietitian Routine Reason for Consult:: tube feeds Consult to Physician Routine Comment: Consulting Provider: Jyotsna Grande order caller/MD group to consult: Manager Process Improvement Reason for consultation: Acute respiratory failure, cirrhosis, AMS, UTI, pneumonia Has provider been notified: Yes Consult to Physician Routine Comment: Consulting Provider: Tay Malik order caller/MD group to consult: GI Reason for consultation: blood in sputum Has provider been notified: Yes 04/30/24 07:18 Consult to Physician Routine Comment: Consulting Provider: Tay Malik order caller/MD group to consult: GI Reason for consultation: hyperbilirubinemia Has provider been notified: Yes DS: Admitting Diagnosis Discharge Date 05/02/24 Admitting Diagnosis Low oxygen saturations, altered mental status DS: Discharge Diagnosis Discharge Diagnosis (1) Diarrhea: Code(s): R19.7 - Diarrhea, unspecified Status: Acute (2) Altered mental status: Code(s): R41.82 - Altered mental status, unspecified Status: Acute (3) Alcoholic cirrhosis: Qualifiers: Ascites presence: unspecified Qualified Code(s): K70.30 - Alcoholic cirrhosis of liver without ascites Code(s): K70.30 - Alcoholic cirrhosis of liver without ascites Status: Acute (4) Hepatic encephalopathy: Code(s): K76.82 - Hepatic encephalopathy Status: Acute Transfer Discharge Sum: Med Medications Active and Home Medications: Home Medications Unable to Obtain Home Medications 04/30/24 [History Confirmed 04/30/24] Active Medications Albuterol/Ipratropium (Ipratropium 0.5 Mg/Albuterol Sulfate 2.5 Mg Ampul.Neb 3 Ml) 3 ml NEBULIZE Q6HRT [facility] Last Admin: 05/02/24 14:02 Dose: 3 ml Dextrose (Dextrose 50% 25 Gm/50 Ml Syringe) 12.5 gm IV PUSH PRN PRN; Protocol PRN Reason: Hypoglycemia Folic Acid (Folic Acid 1 Mg/0.2 Ml Inj) 1 mg IV PUSH QAM [facility] Last Admin: 12/16/24 09:49 Dose: 1 mg Glucagon (Glucagon For Inj 1 Mg Vial) 1 mg IM PRN PRN; Protocol PRN Reason: Hypoglycemia Glucose (Glucose Oral Gel 15 Gm Of Glucse In 37.5 Gm Tube) 15 gm PO PRN PRN; Protocol PRN Reason: Hypoglycemia Dextrose (Dextrose 5% 1,000 Ml) 1,000 mls @ 100 mls/hr IVPB PRN PRN; Protocol PRN Reason: Hypoglycemia Doxycycline Hyclate (Vibramycin 100 Mg/Ns 100 Ml) 100 mg in 100 mls @ 100 mls/hr IVPB Q12H [facility] Last Infusion: 05/02/24 16:40 Dose: Infused Cefepime HCl (Maxipime 2 Gm/Ns 50 Ml) 2 gm in 50 mls @ 100 mls/hr IVPB Q8H [facility] Last Infusion: 05/02/24 12:15 Dose: Infused Dexmedetomidine HCl (Precedex 400 Mcg/100 Ml) 400 mcg in 100 mls @ 5.453 mls/hr IV CONT .[id number] [facility]; Protocol Last Titration: 05/02/24 18:35 Dose: 0.3 mcg/kg/hr, 5.45 mls/hr Ibuprofen (Ibuprofen 400 Mg Tablet) 400 mg PO Q6H PRN PRN Reason: Mild Pain (1-3) or Fever Last Admin: 04/27/24 01:10 Dose: 400 mg Lactulose (Lactulose 20 Gm/30 Ml Udc) 20 gm PO DAILY [facility] Multi-Ingred Cream/Lotion/Oil/Oint (Mineral Oil/White Petrolatum Ointment) 1 applic EACH EYE Q12HR [facility] Last Admin: 05/02/24 10:15 Dose: 1 applic Ondansetron HCl (Ondansetron Inj 4 Mg/2 Ml Vial) 4 mg IV PUSH Q4H PRN PRN Reason: Nausea Pantoprazole Sodium (Pantoprazole Sodium Iv 40 Mg Vial) 40 mg IV PUSH DAILY [facility] Last Admin: 05/02/24 09:49 Dose: 40 mg Rifaximin (Rifaximin 550 Mg Tablet) 550 mg FEED TUBE Q12HR [facility] Last Admin: 05/02/24 09:49 Dose: 550 mg Sodium Chloride (Central Line Flush) 20 ml IV PUSH PRN PRN PRN Reason: after blood draws Sodium Chloride (Central Line Flush) 10 ml IV PUSH PRN PRN PRN Reason: with TPN bag changes Sodium Chloride (Central Line Flush) 10 ml IV PUSH Q8HR [facility] Last Admin: 05/02/24 14:42 Dose: 10 ml Transfer Discharge Sum: Hosp Hospital Course Hospital course: Amee Oconnell is a 49 year old female 49-year-old female with past medical history of alcohol cirrhosis, chronic pancreatitis, and psychiatric disorder who presented to the ER from [facility] due to low oxygen saturations an altered mental status. The patient had recently been hospitalized at [facility] due to depression and suicidal ideation. During her hospitalization for depression she went and alcohol were drawn required ICU stay there. She had also developed hepatic encephalopathy at that time. The patient was then discharged to the custodial recently. Records requested is pending from [facility]. Patient arrived from [place] disheveled with dried orange material to her lips and minimally responsive. Patient received Rocephin after urine was suggestive of UTI. Patient was hypoxic and was placed on 4 L nasal cannula maintain O2 sat greater than 92%. At the time my evaluation patient 4 L nasal cannula satting 100%. Patient was trying to crawl out of the into the bed and had her legs hanging off of the bed bed being in AV formation when I arrived to the ER. The patient will tell me her name but is otherwise not oriented. She is mumbling incoherently and states that she needs to go to her mother. The patient cannot provide any meaningful history. Source of information is ER physician report and EMS report. [facility] did not have documentation on the patient because there computer system was down. Her blood glucose was 104 per EMS. [facility] was initially monitor for hepatic encephalopathy with lactulose. However altered mental status continued to worsen eventually patient deteriorated going into respiratory failure. Patient was transferred to ICU where she was intubated, she was started on broad-spectrum antibiotics, lactulose was continued through NG tube and ammonia content into the 40s. However bilirubin was severely elevated GI was consulted and he recommended transfer to high level of care for hepatology evaluation. As of today patient is intubated, bilirubin somewhat improved to 3.7 from 5.0. Patient was eventually transferred to [place] while hepatology evaluation. Time Spent with Patient Time attestation: Total time spent providing and/or coordinating transfer services: DS: Data Data Completed and Pending Labs on day of discharge: Labs from last 24 hours 05/02/24 05/02/24 05/02/24 17:34 11:38 06:13 WBC 7.5 RBC 3.39 L Hgb 11.7 L Hct 33.6 L MCV 99.1 MCH 34.5 H MCHC 34.8 RDW 13.5 Plt Count 71 L MPV 11.0 H Immature Gran % (Auto) 0.7 H Neut % (Auto) 65.8 Lymph % (Auto) 13.9 L [place] % (Auto) 17.0 H Eos % (Auto) 2.1 Baso % (Auto) 0.5 Lymph # (Auto) 1.04 [place] # (Auto) 1.3 H Eos # (Auto) 0.2 Baso # (Auto) 0.0 Abs Immat Gran (auto) 0.05 H Absolute Neuts (auto) 4.9 Absolute Nucleated RBC 0.000 Nucleated RBC % 0.0 % Immature Plt Fraction 4.9 PT 22.8 H INR 2.0 APTT 41.7 H Puncture Site ABG pH ABG pCO2 ABG pO2 ABG PO2/FiO2 Ratio ABG HCO3 ABG O2 Saturation ABG O2 Content ABG Base Excess A-a Gradient Oxyhemoglobin Carboxyhemoglobin Methemoglobin Reduced Hemoglobin Total Hemoglobin O2 Delivery Device O2 Liters/Min Minute Volume Vent Rate Vent Mode FiO2 Tidal Volume PEEP Peak Inspir Pressure Pressure Support Sodium 136 L Potassium 3.0 L Chloride 107 Carbon Dioxide 24 Anion Gap 5 BUN 8 D Creatinine 0.40 L Estim Creat Clear Calc 132 Estimated GFR > 60 Glucose 107 POC Capillary Glucose 122 H 114 H Lactic Acid 1.8 Calcium 8.6 Phosphorus 2.0 L Magnesium 1.4 L Total Bilirubin 3.7 H AST 42 H ALT 21 Alkaline Phosphatase 104 Ammonia 33 H Total Protein 6.0 L Albumin 2.7 L Stool Rotavirus Antigen Vancomycin Trough 18.6 05/02/24 05/01/24 05/01/24 05:20 23:01 12:50 WBC RBC Hgb Hct MCV MCH MCHC RDW Plt Count MPV Immature Gran % (Auto) Neut % (Auto) Lymph % (Auto) [place] % (Auto) Eos % (Auto) Baso % (Auto) Lymph # (Auto) [place] # (Auto) Eos # (Auto) Baso # (Auto) Abs Immat Gran (auto) Absolute Neuts (auto) Absolute Nucleated RBC Nucleated RBC % % Immature Plt Fraction PT INR APTT Puncture Site Right radial ABG pH 7.501 H ABG pCO2 25.0 L ABG pO2 123.0 H ABG PO2/FiO2 Ratio 1.76 ABG HCO3 19.1 L ABG O2 Saturation 98.8 ABG O2 Content 17.6 ABG Base Excess -2.6 A-a Gradient 349.2 Oxyhemoglobin 98.1 Carboxyhemoglobin 0.3 Methemoglobin 0.3 Reduced Hemoglobin 1.3 Total Hemoglobin 12.6 O2 Delivery Device Ventilator O2 Liters/Min Not Reportable Minute Volume Not Reportable Vent Rate 20 Vent Mode Cmv FiO2 70 Tidal Volume 400 PEEP 8 Peak Inspir Pressure Not Reportable Pressure Support Not Reportable Sodium Potassium Chloride Carbon Dioxide Anion Gap BUN Creatinine Estim Creat Clear Calc Estimated GFR Glucose POC Capillary Glucose 131 H Lactic Acid Calcium Phosphorus Magnesium Total Bilirubin AST ALT Alkaline Phosphatase Ammonia Total Protein Albumin Stool Rotavirus Antigen Vancomycin Trough Preliminary micro results at discharge 04/28/24 17:39 Blood Culture - Preliminary Blood 04/28/24 18:01 Blood Culture - Preliminary Blood Additional Comments Additional comments: Condition on discharge: Stable
--- NOTE | 2024-05-02 19:05 | PC.NURSE ---
While changing and turning the patient the PT coughed and the ETT came out to 15, when previously was at 25 at the lip. Respiratory advanced back to 25. CXR obtained and results read to Dr Grande and updated him on the patient. Bed obtained at [facility] and report given to Jolene SHARPE.
--- NOTE | 2024-05-02 20:11 | PC.NURSE ---
Patient transferred via [place] on their vent and with precedex drip running.
[2024-05-03 10:58] LABS: Rickettsia rickettsii DNA, PCR NOT DETECTED
[2024-05-04 04:49] LABS: Norovirus RNA PCR, Stool NOT DETECTED
[2024-05-05 20:28] LABS: Babesia duncani (WA1) AB IgG <1:256; Babesia microti AB IgG <1:64 titer; Babesia microti AB IgM <1:20 titer
[2024-05-06 00:24] LABS: Lyme AB Screen <0.90 INDEX
== END 2024-05-02 19:55 | DRG 280 ==
LOC: ANHED 04-26 01:31 → ANH3MEDSUR 04-26 01:42 → ANHIMU 04-28 12:46 → ANHICU 04-29 15:48
PROVIDERS: Internal Medicine; Nurse Practitioner; Student in an Organized Health Care Education/Training Program; Admitting Provider Internal Medicine; Emergency Provider Student in an Organized Health Care Education/Training Program; Visit Provider Internal Medicine
DX: K76.82 Hepatic encephalopathy (principal); J96.01 Acute respiratory failure with hypoxia; J18.9 Pneumonia, unspecified organism; N39.0 Urinary tract infection, site not specified; I85.10 Secondary esophageal varices without bleeding; K76.6 Portal hypertension; K70.30 Alcoholic cirrhosis of liver without ascites; D69.6 Thrombocytopenia, unspecified; K86.1 Other chronic pancreatitis; D75.1 Secondary polycythemia; E83.42 Hypomagnesemia; E11.9 Type 2 diabetes mellitus without complications; Y95 Nosocomial condition; K70.10 Alcoholic hepatitis without ascites; B96.20 Unspecified Escherichia coli [E. coli] as the cause of diseases classified elsewhere; D68.9 Coagulation defect, unspecified; R19.7 Diarrhea, unspecified; F41.0 Panic disorder [episodic paroxysmal anxiety]; F32.A Depression, unspecified; F41.9 Anxiety disorder, unspecified; F10.20 Alcohol dependence, uncomplicated; Z20.822 Contact with and (suspected) exposure to COVID-19
CPT/HCPCS: 36415; 36569; 36600; 70450; 71045; 71275; 72125; 74177; 76705; 80048; 80053; 80074; 80143; 80179; 80202; 80307; 81001; 81025; 82077; 82140; 82248; 82375; 82550; 82805; 82948; 83050; 83605; 83690; 83735; 83880; 84100; 84145; 84439; 84443; 84480; 84484; 85018; 85025; 85027; 85055; 85380; 85384; 85610; 85730; 86140; 86666; 87040; 87045; 87070; 87086; 87186; 87205; 87425; 87427; 87449; 87493; 87637; 87641; 87798; 89055; 93005; 93306; 94003; 94640; 99285; A9270; J0282; J0692; J0696; J1940; J1956; J2003; J2250; J2310; J2470; J3010; J3370; J3411; J3430; J3475; J3480; J7030; J7040; J7120; L0140; P9047; Q9967

== ENCOUNTER 2024-07-07 14:02 | Inpatient (IN) | payer OTHER, SELFPAY ==
[2024-07-07] VITALS (24 sets, daily range): BP systolic 133–169; BP diastolic 29–91; PULSE 77–114; RESP 18–31; TEMP 36.6–37.9; O2SAT 86–100; BMI 24.3; BMI 25.5
--- NOTE | ~2024-07-07 | XR_ITS ---
EXAMINATION: XR chest 1V portable DATE: 07/10/2024 08:15 INDICATION: Wheezing. TECHNIQUE: A single frontal view of the chest was obtained. COMPARISON: Chest single view 07/07/2024, chest CT 04/25/2024 FINDINGS: There are mild airspace opacities in right midlung zone. No pleural effusion or pneumothora x. The heart size is normal. IMPRESSION: 1. Mild airspace opacities in right midlung zone, consistent with atelectasis versus pneumonia. Reviewed, dictated and finalized at location A. D CLERK IMPRESSION: 1. Mild airspace opacities in right midlung zone, consistent with atelectasis v ersus pneumonia.
--- NOTE | ~2024-07-07 | XR_ITS ---
EXAMINATION: XR chest 1V portable DATE: 07/07/2024 15:03 INDICATION: Shortness of breath. TECHNIQUE: A single frontal view of the chest was obtained. COMPARISON: Chest view 05/02/2024 FINDINGS: There is no pneumonia, pleural effusion, or pneumothorax. The heart size is normal. IMPRESSION: 1. No acute cardiopulmonary disease. Reviewed, dictated and finalized at location A. HELICOPTER PILOT
--- NOTE | 2024-07-07 14:15 | ECG_ITS ---
Test Date: 2024-07-07 14:17:51 Measurements Intervals [place] Rate: 80 P: -7 SD: 147 QRS: 8 QRSD: 89 T: 26 QT: 340 QTc: 394 Interpretive Statements SINUS RHYTHM CONSIDER ANTERIOR INFARCT, AGE INDETERMINATE CONSIDER INFERIOR INFARCT, AGE INDETERMINATE BASELINE ARTIFACT- I, II, III, AVR, AVL, AVF, V1-V6 ABNORMAL ECG Compared to ECG 04/30/2024 16:34:25 ATRIAL FIBRILLATION NO LONGER PRESENT Electronically Signed On 07-07-2024 14:21:56 BUSINESS LOAN PROCESSOR by Kelby King D.O.
--- OUTSIDE RECORDS SUMMARY | 2024-07-07 14:25 | XMS_ITS | Patient Health Summary ---
Author Organization [facility] Address [address] [place] [address] Care Team Providers Care Refrigeration Engineer Name Role Phone Unavailable Primary Care Provider Unavailabl e Note from [facility],non-owned Affiliates and Associated Physician Practices is amultiple site organization consisting of ambulatory clinics and hospital sitesin [place], [place], [place] and [place]. This disclosure is being madepursuant to the Care Everywhere program and may not contain all information available regarding this patient. Last updated 18.[facility] Allergies No known active allergies Medications * Be aware that medications may not be up to date on this document. Alwaysverify current medications with the patient. * acetaminophen (Tylenol) 500 MG tablet(Started 06/06/2024) Take 1 (one) tablet by mouth every 6 hours as needed Maximum allowable Acetaminophen amount = 4 Grams (4000 mg) / 24 hours. * hydrOXYzine HCl (Atarax) 25 MG tablet(Started 06/06/2024) Take 1 (one) tablet by mouth every 6 hours as needed * albuterol HFA (Ventolin HFA) 108 (90 Base) MCG/ACT inhaler(Started 06/06/2024) Inhale 2 (two) puffs by mouth every 4 hours as needed * FLUoxetine (PROzac) 20 MG/5ML oral solution(Started 06/07/2024) Take 5 mL by mouth once daily * guaiFENesin (Robitussin) 100 MG/5ML solution(Started 06/06/2024) Take 10 mL by mouth every 6 hours as needed for Cough * saline nasal spray (Barber; Baby Thompson) 0.65 % nasal spray(Started 06/06/2024) [place] 1 (one) spray into each nostril every 2 hours as needed for Dry Nose * folic acid (Folvite) 1 MG tablet(Started 06/07/2024) Take 1 (one) tablet by mouth once daily * lactulose (Chronulac) 10 GM/15ML solution(Started 06/06/2024) Take 30 mL by mouth 3 times daily * melatonin 10 MG(Started 06/06/2024) Take 10 (ten) mg by mouth at bedtime * magnesium oxide (Mag-Ox) 400 MG tablet(Started 06/07/2024) Take 1 (one) tablet by mouth once daily * rifAXIMin (Xifaxan) 550 MG tablet(Started 06/06/2024) Take 1 (one) tablet by mouth 2 times daily 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 * nicotine (Nicoderm CQ) 14 MG/24HR patch(Started 06/07/2024) Apply 1 (one) patch to skin once daily * phenol 1.4 %(Started 06/06/2024) 1 spray by Mouth/Throat route every 1 hour as needed * Benzocaine-Menthol (throat lozenge)(Started 06/06/2024) Take 1 (one) lozenge by mouth every 2 hours as needed for Sore Throat * multivitamin Adult (Centrum) solution(Started 06/07/2024) Take 15 mL by mouth daily with breakfast * pantoprazole EC (Protonix) 40 MG tablet(Started 06/07/2024) Take 1 (one) tablet by mouth once daily * thiamine (Vitamin B-1) 100 MG tablet(Started 06/07/2024) Take 1 (one) tablet by mouth once daily Active Problems Problem Noted Date Diagnosed Date Hypokalemia 05/31/2024 Hypomagnesemia 05/31/2024 Acute metabolic encephalopathy 05/03/2024 Hepatic encephalopathy 05/03/2024 Acute respiratory failure with hypoxia Acute pulmonary edema 05/03/2024 CAP (community acquired pneumonia) 05/03/2024 Coagulopathy 05/03/2024 Mood disorder 05/03/2024 Acute cystitis without hematuria 05/03/2024 Severe sepsis without septic shock 05/03/2024 Decompensated cirrhosis 05/01/2024 Immunizations * INFLUENZA VACCINE, TRIV. (FLUZONE; FLULAVAL; FLUARIX; AFLURIA TRIVALENT; 6MO+), 0.5 ML (IIV3)(Given 05/03/2024) Social History Tobacco Use Types Packs/Day Years Used Date Smoking Tobacco: Unknown Tobacco Cessation:Counseling Given: Not Answered AUDIT-C Answer Date Recorded Q1: How often do you have a drink containing alcohol? Patient unable to answer 05/02/2024 Q2: How many drinks containi ng alcohol do you have on a typical day when you are drinking? Patient unable to answer Q3: How often do you have si x or more drinks on one occasion? Patient unable to answer 05/02/2024 Overall Financial Resource Strain (CARDIA) Answe r Date Recorded How hard is it for you to pa y for the very basics like food, housing, medical care, and heating? Not very hard 05/03/2024 [facility] [place] [facility] Occupat ional Health - Occupational Stress Questionnaire Answer Date Recorded Do you feel stress - tense, restless, nervous, or anxious, or unable to sleep at night because your mind is troubled all the time - these days? Not at all 05/03/2024 Hunger Vital Sign Answer Date Recorded Within the past 12 months, y ou worried that your food would run out before you got the money to buy more. Never true 05/03/20 24 Within the past 12 months, t he food you bought just didn't last and you didn't have money to get more. Never true 05/03/2024 PRAPARE - Transportation Answer Date Re corded In the past 12 months, has l ack of transportation kept you from medical appointments or from getting medications? No 04/17 In the past 12 months, has l ack of transportation kept you from meetings, work, or from getting things needed for daily living? No 05/03/2024 Housing Stability Vital Sign Answer Lonny e Recorded In the last 12 months, was t here a time when you were not able to pay the mortgage or rent on time? No 05/03/2024 In the past 12 months, how m any times have you moved where you were living? 0 05/03/2024 At any time in the past 12 m [facility], were you homeless or living in a long term (including now)? No 05/03/2024 Sex and Gender Information Value Date Recorded Sex Assigned at Not on file Gender Identity Female 05/03/2024 4:30 PM METROLOGY SPECIALIST Sexual Orientation Don't know 05/02/2024 9: 14 PM METROLOGY SPECIALIST Last Filed Vital Signs Vital Sign Reading Time Taken Comments Blood Pressure 126/64 06/05/2024 11:09 PM METROLOGY SPECIALIST Pulse 67 06/05/2024 11:09 PM METROLOGY SPECIALIST Temperature 36.7 C (98.1 F) 06/05/2024 2:11 PM METROLOGY SPECIALIST Respiratory Rate 16 06/04/2024 3:29 PM METROLOGY SPECIALIST Oxygen Saturation 92% 06/05/2024 11:09 PM METROLOGY SPECIALIST Inhaled Oxygen Concentration 40% 05/19/2024 1 2:53 PM METROLOGY SPECIALIST Weight 64.9 kg (143 lb) 06/03/2024 4:00 AM METROLOGY SPECIALIST Height 162.6 cm (5' 4) 05/02/2024 8:45 PM METROLOGY SPECIALIST Body Mass Index 24.55 05/02/2024 8:45 PM METROLOGY SPECIALIST Procedures * PT-INR [facility](Performed 06/05/2024) * PHOSPHORUS BLOOD(Performed 06/05/2024) * MAGNESIUM BLOOD(Performed 06/05/2024) * COMPREHENSIVE METABOLIC PANEL(Performed 06/05/2024) * PT-INR [facility](Performed 06/03/2024) * PHOSPHORUS BLOOD(Performed 06/03/2024) * MAGNESIUM BLOOD(Performed 06/03/2024) * COMPREHENSIVE METABOLIC PANEL(Performed 06/03/2024) * PT-INR [facility](Performed 06/02/2024) * PHOSPHORUS BLOOD(Performed 06/02/2024) * MAGNESIUM BLOOD(Performed 06/02/2024) * COMPREHENSIVE METABOLIC PANEL(Performed 06/02/2024) * PT-INR [facility](Performed 06/01/2024) * PHOSPHORUS BLOOD(Performed 06/01/2024) * MAGNESIUM BLOOD(Performed 06/01/2024) * COMPREHENSIVE METABOLIC PANEL(Performed 06/01/2024) * PT-INR [facility](Performed 05/31/2024) * PHOSPHORUS BLOOD(Performed 05/31/2024) * MAGNESIUM BLOOD(Performed 05/31/2024) * COMPREHENSIVE METABOLIC PANEL(Performed 05/31/2024) * CBC W AUTO DIFFERENTIAL(Performed 05/31/2024) * PT-INR [facility](Performed 05/30/2024) * PHOSPHORUS BLOOD(Performed 05/30/2024) * MAGNESIUM BLOOD(Performed 05/30/2024) * COMPREHENSIVE METABOLIC PANEL(Performed 05/30/2024) * CBC W AUTO DIFFERENTIAL(Performed 05/30/2024) * PT-INR [facility](Performed 05/29/2024) * PHOSPHORUS BLOOD(Performed 05/29/2024) * MAGNESIUM BLOOD(Performed 05/29/2024) * COMPREHENSIVE METABOLIC PANEL(Performed 05/29/2024) * CBC W AUTO DIFFERENTIAL(Performed 05/29/2024) * MAGNESIUM BLOOD(Performed 05/28/2024) * COMPREHENSIVE METABOLIC PANEL(Performed 05/28/2024) * PT-INR [facility](Performed 05/28/2024) * PHOSPHORUS BLOOD(Performed 05/28/2024) * CBC W AUTO DIFFERENTIAL(Performed 05/28/2024) * PT-INR [facility](Performed 05/27/2024) * PHOSPHORUS BLOOD(Performed 05/27/2024) * MAGNESIUM BLOOD(Performed 05/27/2024) * COMPREHENSIVE METABOLIC PANEL(Performed 05/27/2024) * CBC W AUTO DIFFERENTIAL(Performed 05/27/2024) * PT-INR [facility](Performed 05/26/2024) * PHOSPHORUS BLOOD(Performed 05/26/2024) * MAGNESIUM BLOOD(Performed 05/26/2024) * COMPREHENSIVE METABOLIC PANEL(Performed 05/26/2024) * CBC W AUTO DIFFERENTIAL(Performed 05/26/2024) * PT-INR [facility](Performed 05/25/2024) * PHOSPHORUS BLOOD(Performed 05/25/2024) * MAGNESIUM BLOOD(Performed 05/25/2024) * COMPREHENSIVE METABOLIC PANEL(Performed 05/25/2024) * CBC W AUTO DIFFERENTIAL(Performed 05/25/2024) * PT EVAL AND TREAT(Performed 05/24/2024) * OT EVAL AND TREAT(Performed 05/24/2024) * PT-INR SLH(Performed 05/24/2024) * PHOSPHORUS BLOOD(Performed 05/24/2024) * MAGNESIUM BLOOD(Performed 05/24/2024) * COMPREHENSIVE METABOLIC PANEL(Performed 05/24/2024) * CBC W AUTO DIFFERENTIAL(Performed 05/24/2024) * GLUCOSE - POINT OF CARE(Performed 05/23/2024) * PROCALCITONIN LEVEL(Performed 05/23/2024) * SYPHILIS ANTIBODY CASCADING REFLEX(Performed 05/23/2024) * URINALYSIS REFLEX TO MICROSCOPIC NO CULTURE(Performed 05/23/2024) * VITAMIN B12(Performed 05/23/2024) * PT-INR [facility](Performed 05/23/2024) * PHOSPHORUS BLOOD(Performed 05/23/2024) * MAGNESIUM BLOOD(Performed 05/23/2024) * COMPREHENSIVE METABOLIC PANEL(Performed 05/23/2024) * CBC W AUTO DIFFERENTIAL(Performed 05/23/2024) * PT EVAL AND TREAT(Performed 05/22/2024) * OT EVAL AND TREAT(Performed 05/22/2024) * GLUCOSE - POINT OF CARE(Performed 05/22/2024) * PT-INR SL[facility](Performed 05/22/2024) * PHOSPHORUS BLOOD(Performed 05/22/2024) * MAGNESIUM BLOOD(Performed 05/22/2024) * COMPREHENSIVE METABOLIC PANEL(Performed 05/22/2024) * CBC W AUTO DIFFERENTIAL(Performed 05/22/2024) * GLUCOSE - POINT OF CARE(Performed 05/22/2024) * GLUCOSE - POINT OF CARE(Performed 05/21/2024) * GLUCOSE - POINT OF CARE(Performed 05/21/2024) * PT-INR SLH(Performed 05/21/2024) * PHOSPHORUS BLOOD(Performed 05/21/2024) * MAGNESIUM BLOOD(Performed 05/21/2024) * COMPREHENSIVE METABOLIC PANEL(Performed 05/21/2024) * CBC W AUTO DIFFERENTIAL(Performed 05/21/2024) * GLUCOSE - POINT OF CARE(Performed 05/21/2024) * GLUCOSE - POINT OF CARE(Performed 05/20/2024) * PT-INR SLH(Performed 05/20/2024) * CBC W AUTO DIFFERENTIAL(Performed 05/20/2024) * PHOSPHORUS BLOOD(Performed 05/20/2024) * MAGNESIUM BLOOD(Performed 05/20/2024) * COMPREHENSIVE METABOLIC PANEL(Performed 05/20/2024) * GLUCOSE - POINT OF CARE(Performed 05/20/2024) * GLUCOSE - POINT OF CARE(Performed 05/19/2024) * CT HEAD WO CONTRAST(Performed 05/19/2024) Performed for Encephalopathy, unspecified type * PT-INR [facility](Performed 05/19/2024) * PHOSPHORUS BLOOD(Performed 05/19/2024) * MAGNESIUM BLOOD(Performed 05/19/2024) * COMPREHENSIVE METABOLIC PANEL(Performed 05/19/2024) * CBC W AUTO DIFFERENTIAL(Performed 05/19/2024) * GLUCOSE - POINT OF CARE(Performed 05/19/2024) * GLUCOSE - POINT OF CARE(Performed 05/19/2024) * GLUCOSE - POINT OF CARE(Performed 05/18/2024) * GLUCOSE - POINT OF CARE(Performed 05/18/2024) * CK BLOOD(Performed 05/18/2024) * HGB HCT PANEL(Performed 05/18/2024) * GLUCOSE - POINT OF CARE(Performed 05/18/2024) * XR ABDOMEN KUB PORTABLE(Performed 05/18/2024) Performed for Alteration in nutrition associated with tube feeding * GLUCOSE - POINT OF CARE(Performed 05/18/2024) * XR CHEST 1VW PORTABLE(Performed 05/18/2024) Performed for Acute respiratory failure with hypoxia (HCC) * PT-INR SLH(Performed 05/18/2024) * PHOSPHORUS BLOOD(Performed 05/18/2024) * MAGNESIUM BLOOD(Performed 05/18/2024) * COMPREHENSIVE METABOLIC PANEL(Performed 05/18/2024) * CBC W AUTO DIFFERENTIAL(Performed 05/18/2024) * GLUCOSE - POINT OF CARE(Performed 05/18/2024) * GLUCOSE - POINT OF CARE(Performed 05/17/2024) * PROCALCITONIN LEVEL(Performed 05/17/2024) * GLUCOSE - POINT OF CARE(Performed 05/17/2024) * PT-INR SLH(Performed 05/17/2024) * PHOSPHORUS BLOOD(Performed 05/17/2024) * MAGNESIUM BLOOD(Performed 05/17/2024) * COMPREHENSIVE METABOLIC PANEL(Performed 05/17/2024) * CBC W AUTO DIFFERENTIAL(Performed 05/17/2024) * GLUCOSE - POINT OF CARE(Performed 05/17/2024) * EKG 12-LEAD(Performed 05/16/2024) Performed for Acute respiratory failure with hypoxia (HCC) * XR CHEST 1VW PORTABLE(Performed 05/16/2024) Performed for Acute respiratory failure with hypoxia (HCC) * AMMONIA(Performed 05/16/2024) * COMPREHENSIVE METABOLIC PANEL(Performed 05/16/2024) * BLOOD GASES ART + COOX PANEL(Performed 05/16/2024) * GLUCOSE - POINT OF CARE(Performed 05/16/2024) * BASIC METABOLIC PANEL (CALCIUM TOTAL)(Performed 05/16/2024) * GLUCOSE - POINT OF CARE(Performed 05/16/2024) * PTT SLH(Performed 05/16/2024) * PT-INR [facility](Performed 05/16/2024) * PHOSPHORUS BLOOD(Performed 05/16/2024) * MAGNESIUM BLOOD(Performed 05/16/2024) * COMPREHENSIVE METABOLIC PANEL(Performed 05/16/2024) * CBC W AUTO DIFFERENTIAL(Performed 05/16/2024) * GLUCOSE - POINT OF CARE(Performed 05/16/2024) * GLUCOSE - POINT OF CARE(Performed 05/16/2024) * PTT SLH(Performed 05/15/2024) * PT-INR SLH(Performed 05/15/2024) * PHOSPHORUS BLOOD(Performed 05/15/2024) * MAGNESIUM BLOOD(Performed 05/15/2024) * COMPREHENSIVE METABOLIC PANEL(Performed 05/15/2024) * CBC W AUTO DIFFERENTIAL(Performed 05/15/2024) * GLUCOSE - POINT OF CARE(Performed 05/15/2024) * GLUCOSE - POINT OF CARE(Performed 05/15/2024) * GLUCOSE - POINT OF CARE(Performed 05/14/2024) * GLUCOSE - POINT OF CARE(Performed 05/14/2024) * FERRITIN(Performed 05/14/2024) * MRSA DNA PCR(Performed 05/14/2024) * BLOOD GASES PAT + COOX PANEL(Performed 05/14/2024) * GLUCOSE - POINT OF CARE(Performed 05/14/2024) * XR CHEST 1VW PORTABLE(Performed 05/14/2024) Performed for Dyspnea, unspecified type * GLUCOSE - POINT OF CARE(Performed 05/14/2024) * BILIRUBIN DIRECT(Performed 05/14/2024) * PHOSPHORUS BLOOD(Performed 05/14/2024) * MAGNESIUM BLOOD(Performed 05/14/2024) * COMPREHENSIVE METABOLIC PANEL(Performed 05/14/2024) * CBC W AUTO DIFFERENTIAL(Performed 05/14/2024) * GLUCOSE - POINT OF CARE(Performed 05/13/2024) * GLUCOSE - POINT OF CARE(Performed 05/13/2024) * MAGNESIUM BLOOD(Performed 05/13/2024) * COMPREHENSIVE METABOLIC PANEL(Performed 05/13/2024) * EKG 12-LEAD(Performed 05/13/2024) Performed for Decompensated cirrhosis (HCC) * GLUCOSE - POINT OF CARE(Performed 05/13/2024) * PHOSPHORUS BLOOD(Performed 05/13/2024) * CBC W AUTO DIFFERENTIAL(Performed 05/13/2024) * GLUCOSE - POINT OF CARE(Performed 05/12/2024) * GLUCOSE - POINT OF CARE(Performed 05/12/2024) * XR ABDOMEN KUB PORTABLE(Performed 05/12/2024) Performed for Decompensated cirrhosis (HCC) * XR CHEST 1VW PORTABLE(Performed 05/12/2024) Performed for Decompensated cirrhosis (HCC) * XR ABDOMEN KUB PORTABLE(Performed 05/12/2024) Performed for Decompensated cirrhosis (HCC) * GLUCOSE - POINT OF CARE(Performed 05/12/2024) * GLUCOSE - POINT OF CARE(Performed 05/12/2024) * PHOSPHORUS BLOOD(Performed 05/12/2024) * MAGNESIUM BLOOD(Performed 05/12/2024) * COMPREHENSIVE METABOLIC PANEL(Performed 05/12/2024) * CBC W AUTO DIFFERENTIAL(Performed 05/12/2024) * BLOOD GASES ART + COOX PANEL(Performed 05/12/2024) * GLUCOSE - POINT OF CARE(Performed 05/12/2024) * PT EVAL AND TREAT(Performed 05/11/2024) * OT EVAL AND TREAT(Performed 05/11/2024) * CULTURE SPUTUM+GRAM STAIN(Performed 05/11/2024) * PHOSPHORUS BLOOD(Performed 05/11/2024) * MAGNESIUM BLOOD(Performed 05/11/2024) * COMPREHENSIVE METABOLIC PANEL(Performed 05/11/2024) * CBC W AUTO DIFFERENTIAL(Performed 05/11/2024) * GLUCOSE - POINT OF CARE(Performed 05/11/2024) * GLUCOSE - POINT OF CARE(Performed 05/11/2024) * XR CHEST 1VW PORTABLE(Performed 05/10/2024) Performed for Pleural effusion * CBC W AUTO DIFFERENTIAL(Performed 05/10/2024) * GLUCOSE - POINT OF CARE(Performed 05/10/2024) * PHOSPHORUS BLOOD(Performed 05/10/2024) * MAGNESIUM BLOOD(Performed 05/10/2024) * COMPREHENSIVE METABOLIC PANEL(Performed 05/10/2024) * GLUCOSE - POINT OF CARE(Performed 05/09/2024) * GLUCOSE - POINT OF CARE(Performed 05/09/2024) * PT EVAL AND TREAT(Performed 05/09/2024) * OT EVAL AND TREAT(Performed 05/09/2024) * GLUCOSE - POINT OF CARE(Performed 05/09/2024) * PHOSPHORUS BLOOD(Performed 05/09/2024) * MAGNESIUM BLOOD(Performed 05/09/2024) * COMPREHENSIVE METABOLIC PANEL(Performed 05/09/2024) * CBC W AUTO DIFFERENTIAL(Performed 05/09/2024) * GLUCOSE - POINT OF CARE(Performed 05/09/2024) * GLUCOSE - POINT OF CARE(Performed 05/09/2024) * GLUCOSE - POINT OF CARE(Performed 05/08/2024) * GLUCOSE - POINT OF CARE(Performed 05/08/2024) * GLUCOSE - POINT OF CARE(Performed 05/08/2024) * PHOSPHORUS BLOOD(Performed 05/08/2024) * MAGNESIUM BLOOD(Performed 05/08/2024) * COMPREHENSIVE METABOLIC PANEL(Performed 05/08/2024) * CBC W AUTO DIFFERENTIAL(Performed 05/08/2024) * GLUCOSE - POINT OF CARE(Performed 05/08/2024) * GLUCOSE - POINT OF CARE(Performed 05/07/2024) * GLUCOSE - POINT OF CARE(Performed 05/07/2024) * GLUCOSE - POINT OF CARE(Performed 05/07/2024) * PHOSPHORUS BLOOD(Performed 05/07/2024) * MAGNESIUM BLOOD(Performed 05/07/2024) * COMPREHENSIVE METABOLIC PANEL(Performed 05/07/2024) * CBC W AUTO DIFFERENTIAL(Performed 05/07/2024) * GLUCOSE - POINT OF CARE(Performed 05/07/2024) * GLUCOSE - POINT OF CARE(Performed 05/06/2024) * GLUCOSE - POINT OF CARE(Performed 05/06/2024) * GLUCOSE - POINT OF CARE(Performed 05/06/2024) * GLUCOSE - POINT OF CARE(Performed 05/06/2024) * DIFFERENTIAL MANUAL(Performed 05/06/2024) * PHOSPHORUS BLOOD(Performed 05/06/2024) * MAGNESIUM BLOOD(Performed 05/06/2024) * COMPREHENSIVE METABOLIC PANEL(Performed 05/06/2024) * CBC W AUTO DIFFERENTIAL(Performed 05/06/2024) * GLUCOSE - POINT OF CARE(Performed 05/05/2024) * GLUCOSE - POINT OF CARE(Performed 05/05/2024) * GLUCOSE - POINT OF CARE(Performed 05/05/2024) * DIFFERENTIAL MANUAL(Performed 05/05/2024) * TRIGLYCERIDES BLOOD(Performed 05/05/2024) * PHOSPHORUS BLOOD(Performed 05/05/2024) * MAGNESIUM BLOOD(Performed 05/05/2024) * COMPREHENSIVE METABOLIC PANEL(Performed 05/05/2024) * CBC W AUTO DIFFERENTIAL(Performed 05/05/2024) * GLUCOSE - POINT OF CARE(Performed 05/04/2024) * GLUCOSE - POINT OF CARE(Performed 05/04/2024) * US ABDOMEN LTD W COMP DOPPLER(Performed 05/04/2024) Performed for Decompensated cirrhosis (HCC) * GLUCOSE - POINT OF CARE(Performed 05/04/2024) * GLUCOSE - POINT OF CARE(Performed 05/04/2024) * BLOOD GASES ART + COOX PANEL(Performed 05/04/2024) * GLUCOSE - POINT OF CARE(Performed 05/04/2024) * DIFFERENTIAL MANUAL(Performed 05/04/2024) * PHOSPHORUS BLOOD(Performed 05/04/2024) * MAGNESIUM BLOOD(Performed 05/04/2024) * COMPREHENSIVE METABOLIC PANEL(Performed 05/04/2024) * CBC W AUTO DIFFERENTIAL(Performed 05/04/2024) * IRON + TRANSFERRIN PANEL(Performed 05/03/2024) * GLUCOSE - POINT OF CARE(Performed 05/03/2024) * CULTURE SPUTUM+GRAM STAIN(Performed 05/03/2024) * URINE MICROSCOPIC ONLY REFLEX TO CULTURE(Performed 05/03/2024) * URINALYSIS REFLEX MICROSCOPIC REFLEX CULTURE(Performed 05/03/2024) * CULTURE URINE(Performed 05/03/2024) * STREP PNEUMONIAE ANTIGEN URINE(Performed 05/03/2024) * LEGIONELLA ANTIGEN URINE(Performed 05/03/2024) * ECHO COMPLETE W CONTRAST W BUBBLE STUDY(Performed 05/03/2024) Performed for Dyspnea, unspecified type * GLUCOSE - POINT OF CARE(Performed 05/03/2024) * LACTIC ACID BLOOD(Performed 05/03/2024) * CULTURE BLOOD(Performed 05/03/2024) * CULTURE BLOOD(Performed 05/03/2024) * GLUCOSE - POINT OF CARE(Performed 05/03/2024) * BLOOD GASES ART + COOX PANEL(Performed 05/03/2024) * GLUCOSE - POINT OF CARE(Performed 05/03/2024) * LACTIC ACID BLOOD(Performed 05/03/2024) * GLUCOSE - POINT OF CARE(Performed 05/03/2024) * BLOOD GASES ART + COOX PANEL(Performed 05/03/2024) * HEMOGLOBIN A1C(Performed 05/03/2024) * PHOSPHORUS BLOOD(Performed 05/03/2024) * MAGNESIUM BLOOD(Performed 05/03/2024) * COMPREHENSIVE METABOLIC PANEL(Performed 05/03/2024) * CBC W AUTO DIFFERENTIAL(Performed 05/03/2024) * HIV-1 HIV-2 ANTIBODY + HIV P24 AG PANEL(Performed 05/03/2024) * VITAMIN B12(Performed 05/03/2024) * RESPIRATORY PANEL WITH SARS-COV-2 BY PCR (STL)(Performed 05/02/2024) * CULTURE MRSA(Performed 05/02/2024) * VANCOMYCIN LEVEL RANDOM(Performed 05/02/2024) * SYPHILIS ANTIBODY CASCADING REFLEX(Performed 05/02/2024) * XR CHEST 1VW PORTABLE(Performed 05/02/2024) Performed for Decompensated cirrhosis (HCC) * XR ABDOMEN KUB PORTABLE(Performed 05/02/2024) Performed for Decompensated cirrhosis (HCC) * TSH(Performed 05/02/2024) * SMOOTH MUSCLE ANTIBODY W REFLEX TITER(Performed 05/02/2024) * MITOCHONDRIAL ANTIBODY SCREEN(Performed 05/02/2024) * CERULOPLASMIN(Performed 05/02/2024) * AMMONIA(Performed 05/02/2024) * LACTIC ACID BLOOD(Performed 05/02/2024) * B-TYPE NATRIURETIC PEPTIDE(Performed 05/02/2024) * PHOSPHATIDYLETHANOL (PETH)(Performed 05/02/2024) * PTT SLH(Performed 05/02/2024) * PT-INR SLH(Performed 05/02/2024) * BLOOD GASES ART + COOX PANEL(Performed 05/02/2024) * MAGNESIUM BLOOD(Performed 05/02/2024) * PHOSPHORUS BLOOD(Performed 05/02/2024) * CBC W AUTO DIFFERENTIAL(Performed 05/02/2024) * COMPREHENSIVE METABOLIC PANEL(Performed 05/02/2024) * LACTIC ACID BLOOD(Performed 05/02/2024) Results * (ABNORMAL) PT-INR [facility] (06/05/2024 8:08 AM METROLOGY SPECIALIST) Only the most recent of22 resultswithin the time period is included. Pathologist [facility] PT 16.9(H) 12.1 - 14.8 Seconds 06/05/2024 9:15 AM [facility] INR 1.4 See Comment 06/05/2024 9:15 AM [facility] Comment:The suggested therap eutic range for standard coumadin (warfarin) therapy is an INR of 2.0-3.0. For high-risk patients (Mechanical Mitral Valve Prosthesis, etc.), the suggested prophylactic therapeutic range is an INR of 2.5-3.5. Blood BLOOD SPECIMEN / Unknown Lab Venipuncture / Unknown 06/05/2024 8:08 AM METROLOGY SPECIALIST 06/05/2024 8:45 AM [facility] Neal Grossman MD LAB - COAGULATION OR DERABLES Performing Organization Address City/State/[facility] Co de Phone Number [facility] [address] [place] [phone], [facility] [phone] * (ABNORMAL) COMPREHENSIVE METABOLIC PANEL (06/05/2024 8:08 AM [facility]) Only the most recent of35 resultswithin the time period is included. Pathologist [facility] BUN 8 7 - 26 mg/dL 06/05/2024 9:15 AM [facility] Creatinine 0.56 0.56 - 0.96 mg/dL 06/05/2024 9:15 AM [facility] Sodium 136 136 - 145 mmol/L 06/05/2024 9:15 AM [facility] Potassium 3.7 3.5 - 4.5 mmol/L 06/05/2024 9:15 AM [facility] Chloride 108(H) 98 - 107 mmol/L 06/05/2024 9:15 AM [facility] CO2 20(L) 22 - 29 mmol/L 06/05/2024 9:15 AM [facility] Glucose 132(H) 70 - 99 mg/dL 06/05/2024 9:15 AM [facility] Calcium 8.3(L) 8.4 - 10.2 mg/dL 06/05/2024 9:15 AM [facility] Protein Total 6.2 6.0 - 8.3 g/dL 06/05/2024 9:15 AM [facility] Albumin 2.5(L) 3.4 - 5.0 g/dL 06/05/2024 9:15 AM [facility] Bilirubin Total 2.3(H) 0.2 - 1.2 mg/dL 06/05/2024 9:15 AM [facility] Alkaline Phosphatase 133 40 - 150 U/L 06/05/2024 9:15 AM [facility] ALT 30 5 - 55 U/L 06/05/2024 9:15 AM [facility] AST 38(H) 5 - 34 U/L 06/05/2024 9:15 AM [facility] Anion Gap 8 6 - 16 06/05/2024 9:15 AM [facility] BUN/Creatinine Ratio 14 7 - 23 06/05/2024 9:15 AM [facility] Osmolality Calculated 282 275 - 295 mOsm/kg 06/05/2024 9:15 AM [facility] Albumin/Globulin Ratio 0.7(L) 1.1 - 2.3 06/05/2024 9:15 AM [facility] eGFR by CKD-EPI >90 >=90 mL/min/1.7 3 m2 06/05/2024 9:15 AM [facility] Blood BLOOD SPECIMEN / Unknown Lab Venipuncture / Unknown 06/05/2024 8:08 AM [facility] 06/05/2024 8:46 AM [facility] Neal Grossman MD LAB - CHEMISTRY ORDE [facility] Organization Address City/State/ZIP Co de Phone Number [facility] [address] [place] [phone], [facility] [phone] * PHOSPHORUS BLOOD (06/05/2024 8:08 AM [facility]) Only the most recent of34 resultswithin the time period is included. Phosphorus 3.3 2.9 - 5.1 mg/dL 06/05/2024 9:15 AM [facility] Blood BLOOD SPECIMEN / Unknown Lab Venipuncture / Unknown 06/05/2024 8:08 AM [facility] 06/05/2024 8:46 AM [facility] Neal Grossman MD LAB - CHEMISTRY NADIA VALENTE [facility] [address] [place] [address], [facility] [phone] * (ABNORMAL) MAGNESIUM BLOOD (06/05/2024 8:08 AM METROLOGY SPECIALIST) Only the most recent of34 resultswithin the time period is included. Pathologist [facility] Magnesium 1.5(L) 1.6 - 2.6 mg/dL 06/05/2024 9:15 AM [facility] Blood BLOOD SPECIMEN / Unknown Lab Venipuncture / Unknown 06/05/2024 8:08 AM METROLOGY SPECIALIST 06/05/2024 8:46 AM METROLOGY SPECIALIST Neal Grossman MD LAB - CHEMISTRY NADIA VALENTE Performing Organization Address City/[facility]/ZIP Co de Phone Number [facility] [address] [place] [address], [facility] [phone] * (ABNORMAL) CBC W AUTO DIFFERENTIAL (05/31/2024 7:04 PM METROLOGY SPECIALIST) Only the most recent of30 resultswithin the time period is included. WBC 5.5 4.0 - 10.7 x10E9/L 05/31/2024 7:45 PM [facility] RBC Count 3.51(L) 3.90 - 5.20 x10E12/L 05/31/2024 7:45 PM [facility] Hemoglobin 11.7(L) 11.9 - 15.8 g/dL 05/31/2024 7:45 PM [facility] Hematocrit 33.9(L) 34.8 - 46.1 % 05/31/2024 7:45 PM [facility] MCV 96.6 80.0 - 98.0 fL 05/31/2024 7:45 PM [facility] MCH 33.3 26.7 - 33.6 pg 05/31/2024 7:45 PM [facility] MCHC 34.5 31.7 - 36.3 g/dL 05/31/2024 7:45 PM [facility] RDW-CV 16.4(H) 11.3 - 14.8 % 05/31/2024 7:45 PM [facility] Platelet Count 149(L) 150 - 420 x10E9/L 05/31/2024 7:45 PM [facility] MPV 10.8 7.8 - 11.4 fL 05/31/2024 7:45 PM [facility] Neutrophil % 55.1 41.0 - 74.0 % 05/31/2024 7:45 PM [facility] Lymphocyte % 25.1 17.0 - 47.0 % 05/31/2024 7:45 PM [facility] Monocyte % 13.9(H) 3.0 - 11.0 % 05/31/2024 7:45 PM [facility] Eosinophil % 4.5 0.0 - 7.0 % 05/31/2024 7:45 PM [facility] Basophil % 0.7 0.0 - 1.6 % 05/31/2024 7:45 PM [facility] Immature Granulocytes % 0.7 0.0 - 1.0 % 05/31/2024 7:45 PM [facility] Neutrophil Absolute 3.04 1.60 - 7.50 x10E9/L 05/31/2024 7:45 PM [facility] Lymphocyte Absolute 1.39 1.00 - 4.40 x10E9/L 05/31/2024 7:45 PM [facility] Monocyte Absolute 0.77 0.15 - 1.00 x10E9/L 05/31/2024 7:45 PM [facility] Eosinophil Absolute 0.25 0.00 - 0.60 x10E9/L 05/31/2024 7:45 PM [facility] Basophil Absolute 0.04 0.00 - 0.13 x10E9/L 05/31/2024 7:45 PM [facility] Blood BLOOD SPECIMEN / Unknown Lab Venipuncture / Unknown 05/31/2024 7:04 PM METROLOGY SPECIALIST 05/31/2024 7:31 PM METROLOGY SPECIALIST eNal Grossman MD LAB - HEMATOLOGY ORD ERABLES Performing Organization Address [facility]/ZIP Co de Phone Number [address] [address], [place] [phone] * (ABNORMAL) GLUCOSE - POINT OF CARE (05/23/2024 10:19 PM METROLOGY SPECIALIST) Only the most recent of70 resultswithin the time period is included. Glucose WB/POC 119(H) 70 - 99 mg/dL 05/24/2024 5:39 AM METROLOGY SPECIALIST [facility] Specimen Type Cap Fingerstick 2024 5:39 AM METROLOGY SPECIALIST [facility] Blood BLOOD SPECIMEN / Unknown 05/23/2024 10:19 PM METROLOGY SPECIALIST 05/24/2024 5:39 AM METROLOGY SPECIALIST Mitchel De MD LAB - POINT OF CARE ORDERABLES Performing Organization Address [facility]/ZIP Co de Phone Number [address] [address], [place] [phone] * PROCALCITONIN LEVEL (05/23/2024 3:06 PM METROLOGY SPECIALIST) Only the most recent of2 resultswithin the time period is included. PROCALCITONIN 0.03 <=0.10 ng/mL 05/23/2024 4:21 PM METROLOGY SPECIALIST [facility] Blood BLOOD SPECIMEN / Unknown Lab Venipuncture / Unknown 05/23/2024 3:06 PM METROLOGY SPECIALIST 05/23/2024 3:17 PM METROLOGY SPECIALIST Narrative [facility] - 05/23/2024 4:21 PM METROLOGY SPECIALIST The change in procalcitonin (PCT) concentration over time provides support in decision making on antibiotic discontinuation for suspected or confirmed septic patients. Follow-up samples should be tested once every 1-2 days based upon physician discretion taking into account the patient s evolution and progress. Consider discontinuation of antibiotic therapy if the PCT current is <= 0.5 ng/mL or if the delta PCT is > 80%. Duration of antibiotics should not be determined solely on PCT; established guidelines for the indication should be followed. PCT peak: Highest observed PCT concentration PCT current: Most recent PCT concentration Calculate delta PCT using the following equation: Delta PCT = PCT Peak PCT current X 100% PCT Peak The Change in Procalcitonin Calculator is available at [email or web address] If clinical picture has not improved and PCT remains high, reevaluate and consider treatment failure or other causes. Mitchel De MD LAB - CHEMISTRY ORDE AMBROSIO Performing Organization Address [facility] Co de Phone Number [address] [address], [facility] [phone] * SYPHILIS ANTIBODY CASCADING REFLEX (05/23/2024 3:06 PM METROLOGY SPECIALIST) Only the most recent of2 resultswithin the time period is included. Pathologist [facility] Treponema pallidum Antibody Non-react grady Non-react grady 05/23/2024 3:59 PM METROLOGY SPECIALIST [facility] Comment: No Laboratory evidence of syphilis infection. Note: Circulating antibodies may be low or undetectable in early infection. If recent exposure is suspected, re-draw sample in 2-4 weeks and repeat testing. Blood BLOOD SPECIMEN / Unknown Lab Venipuncture / Unknown 05/23/2024 3:06 PM METROLOGY SPECIALIST 05/23/2024 3:17 PM METROLOGY SPECIALIST Mitchel De MD LAB - SEROLOGY ORDER GERALDO Performing Organization Address [facility]/ZIP Co de Phone Number [address] [address], [place] [phone] * (ABNORMAL) URINALYSIS REFLEX TO MICROSCOPIC NO CULTURE (05/23/2024 11:05 AM METROLOGY SPECIALIST) Color UA Zuni(A) Straw, Yellow 05/23/2024 3:42 PM METROLOGY SPECIALIST [facility] Clarity UA Slt Cloudy(A) Clear 05/23/2024 3:42 PM METROLOGY SPECIALIST [facility] Specific Marston UA 1.024 1.005 - 1.030 05/23/2024 3:42 PM [facility] Comment: Specific gravity results confirmed by refractometer. This is a corrected result. Previous result was >=1.030 on 05/23/2024 at 1129 METROLOGY SPECIALIST pH UA 5.5 5.0 - 8.0 pH 05/23/2024 3:42 PM [facility] Protein UA Negative Negative 05/23/2024 3:42 PM [facility] Glucose UA Negative Negative 05/23/2024 3:42 PM [facility] Ketone UA Trace(A) Negative 05/23/2024 3:42 PM [facility] Bilirubin UA 1+(A) Negative 05/23/2024 3:42 PM [facility] Comment:Urine Bilirubin resu lt confirmed by manual Ictotest. Blood UA Negative Negative 05/23/2024 3:42 PM [facility] Nitrite UA Positive(A) Negative 05/23/2024 3:42 PM [facility] Leukocyte Esterase Negative Negative 05/23/2024 3:42 PM [facility] Urobilinogen UA Negative Negative mg/dL 05/23/2024 3:42 PM [facility] RBC UA 6-10(A) None Seen, 0-2, 3-5 /HPF 05/23/2024 3:42 PM [facility] WBC UA 11-20(A) None Seen, 0-5 /HPF 05/23/2024 3:42 PM [facility] Bacteria UA 1+(A) None /HPF 05/23/2024 3:42 PM [facility] Yeast Budding UA Moderate(A) None /HPF 025 3:42 PM [facility] Squamous Epithelial Cells UA 3-5 None Seen, 0-2, 3-5 /HPF 05/23/2024 3:42 PM [facility] Mucus UA 4+ /LPF 05/23/2024 3:42 PM [facility] Hyaline Casts UA 3-5(A) None Seen, 0-2 /LPF 05/23/2024 3:42 PM [facility] Urine URINE SPECIMEN OBTAINED BY CLEAN CATCH PROCEDURE / Unknown Collection / Unknown 05/23/2024 11:05 AM METROLOGY SPECIALIST 05/23/2024 11:08 AM METROLOGY SPECIALIST Narrative [facility] - 05/23/2024 3:42 PM METROLOGY SPECIALIST Mitchel De MD LAB - URINALYSIS ORD ERABLES [facility] [address] [place] [address], [place] [phone] * (ABNORMAL) VITAMIN B12 (05/23/2024 6:20 AM METROLOGY SPECIALIST) Only the most recent of2 resultswithin the time period is included. Vitamin B12 >2,000(H) 213 - 816 pg/mL 05/23/2024 10:40 AM METROLOGY SPECIALIST [facility] Blood BLOOD SPECIMEN / Unknown Venipuncture / Unknown 05/23/2024 6:20 AM METROLOGY SPECIALIST 05/23/2024 6:45 AM METROLOGY SPECIALIST Mitchel De MD LAB - CHEMISTRY ORDE RABLES [facility] [address] [place] [address], [place] [phone] * CT Head Wo Contrast (05/19/2024 10:03 AM METROLOGY SPECIALIST) Anatomical Region Laterality Modality Head Computed Tomogra phy 05/19/2024 10:2 7 AM METROLOGY SPECIALIST Impressions 05/19/2024 10:31 AM METROLOGY SPECIALIST IMPRESSION: 1. No acute intracranial process. 2. Chronic small vessel ischemic disease of the brain with cerebral volume loss. > Interpreting Provider: Albert Xiong MD on 05/19/2024 10:31 AM Narrative 05/19/2024 10:31 AM METROLOGY SPECIALIST PROCEDURE: CT HEAD WO CONTRAST, DATE/TIME OF EXAM: 05/19/2024 10:05 AM, LOCATION [facility] INDICATION: G93.40: Encephalopathy, unspecified type ADDITIONAL CLINICAL INFORMATION: Ordering Provider Reason For Exam: acute proccess to explain AMS Technologist Note: Additional: TECHNIQUE: CT of the head was performed without contrast according to standard protocol. CONTRAST: COMPARISON: No prior study is available for comparison at the time of this dictation. FINDINGS: No acute intracranial hemorrhage or intra- or extra-axial fluid collections are identified. There is mild cerebral volume loss with associated ex vacuo ventricular dilatation. The basal cisterns are patent. No mass effect or midline shift is seen. The hutchinson-white matter differentiation is normal. Periventricular white matter hypoattenuation is a nonspecific finding that may be indicative of chronic small vessel ischemic disease. There is atherosclerotic calcification of the carotid siphons. Other than mild paranasal sinus disease and opacification of right greater than left mastoid air cells, the visualized portions of the orbits, paranasal sinuses, and mastoids appear normal. No acute calvarial fracture is identified. Procedure Note Albert Xiong MD - 05/19/2024 PROCEDURE: CT HEAD WO CONTRAST, DATE/TIME OF EXAM: 05/19/2024 10:05 AM, LOCATION [facility] INDICATION: G93.40: Encephalopathy, unspecified type ADDITIONAL CLINICAL INFORMATION: Ordering Provider Reason For Exam: acute proccess to explain AMS Technologist Note: Additional: TECHNIQUE: CT of the head was performed without contrast according to standard protocol. CONTRAST: COMPARISON: No prior study is available for comparison at the time ofthis dictation. FINDINGS: No acute intracranial hemorrhage or intra- or extra-axial fluidcollections are identified. There is mild cerebral volume loss with associated exvacuo ventricular dilatation. The basal cisterns are patent. No mass effect or midline shift is seen. The hutchinson-white matter differentiation is normal. Periventricular white matter hypoattenuation is a nonspecific findingthat may be indicative of chronic small vessel ischemic disease. There is atherosclerotic calcification of the carotid siphons. Other than mild paranasal sinus disease and opacification of rightgreater than left mastoid air cells, the visualized portions of the orbits, paranasal sinuses, and mastoids appear normal. No acute calvarial fracture is identified. IMPRESSION: 1. No acute intracranial process. 2. Chronic small vessel ischemic disease of the brain with cerebralvolume loss. > Interpreting Provider: Albert Xiong MD on 05/19/2024 10:31 AM Mitchel De MD CT ORDERABLES * (ABNORMAL) HGB HCT PANEL (05/18/2024 12:26 PM METROLOGY SPECIALIST) Hemoglobin 16.6(H) 11.9 - 15.8 g/dL 05/18/2024 12:52 PM METROLOGY SPECIALIST [facility] Hematocrit 50.3(H) 34.8 - 46.1 % 05/18/2024 12:52 PM METROLOGY SPECIALIST [facility] Blood BLOOD SPECIMEN / Unknown Lab Venipuncture / Unknown 05/18/2024 12:26 PM METROLOGY SPECIALIST 05/18/2024 12:48 PM METROLOGY SPECIALIST Mitchel De MD LAB - HEMATOLOGY ORD ERABLES [address] [address], [facility] [phone] * CK BLOOD (05/18/2024 12:26 PM METROLOGY SPECIALIST) Pathologist [facility] CK Total 30 30 - 200 U/L 05/18/2024 1:21 PM METROLOGY SPECIALIST [facility] Blood BLOOD SPECIMEN / Unknown Lab Venipuncture / Unknown 05/18/2024 12:26 PM METROLOGY SPECIALIST 05/18/2024 12:53 PM METROLOGY SPECIALIST Mitchel eD MD LAB - CHEMISTRY ORDE RABLES Performing Organization Address City/[facility]/ZIP Co de Phone Number [address] [address], [place] [phone] * XR Abdomen Kub Portable (05/18/2024 10:38 AM METROLOGY SPECIALIST) Only the most recent of4 resultswithin the time period is included. Anatomical Region Laterality Modality Abdomen Digital Radiogra phy 05/18/2024 11:5 5 AM METROLOGY SPECIALIST Narrative 05/18/2024 5:41 PM METROLOGY SPECIALIST PROCEDURE: XR ABDOMEN KUB PORTABLE DATE/TIME OF EXAM: 05/18/2024 10:39 AM Indication: R63.8: Alteration in nutrition associated with tube feeding Additional History: COMPARISON: Abdominal x-ray 05/12/2024 FINDINGS/IMPRESSION: Weighted tip feeding tube courses below the diaphragm and terminates in the gastric fundus, mildly retracted compared to prior abdominal x-ray. Report dictated by Milad Perales MD (residential insurance inspector). Mckenna Aly MD have personally reviewed and interpreted this examination/study. > Interpreting Provider: Mckenna Alva MD on 05/18/2024 5:41 PM Procedure Note Mckenna Alva MD - 05/18/2024 PROCEDURE: XR ABDOMEN KUB PORTABLE DATE/TIME OF EXAM: 05/18/2024 10:39 AM Indication: R63.8: Alteration in nutrition associated with tube feeding Additional History: COMPARISON: Abdominal x-ray 05/12/2024 FINDINGS/IMPRESSION: Weighted tip feeding tube courses below the diaphragm and terminates inthe gastric fundus, mildly retracted compared to prior abdominal x-ray. Report dictated by Milad Perales MD (residential insurance inspector). Mckenna Aly MD have personally reviewed and interpreted this examination/study. > Interpreting Provider: Mckenna Alva MD on 05/18/2024 5:41 PM Mitchel De MD DIAGNOSTIC IMAGING O RDERABLES * XR Chest 1Vw Portable (05/18/2024 4:33 AM METROLOGY SPECIALIST) Only the most recent of6 resultswithin the time period is included. Anatomical Region Laterality Modality Chest Digital Radiogra phy 05/18/2024 1:20 PM METROLOGY SPECIALIST Narrative 05/19/2024 12:31 AM METROLOGY SPECIALIST PROCEDURE: XR CHEST 1VW PORTABLE, DATE/TIME OF EXAM: 05/18/2024 4:33 AM, LOCATION [facility] INDICATION: J96.01: Acute respiratory failure with hypoxia (HCC) ADDITIONAL CLINICAL INFORMATION: Ordering Provider Reason For Exam: Worsening? COMPARISON: Chest radiograph 05/16/2024 FINDINGS/IMPRESSION: Lines, tubes, hardware: *Enteric tube seen coursing below the diaphragm with tip in the gastric fundus. Right lower zone airspace disease, which could be due to aspiration or atelectasis, superadded infection is not excluded, this has improved. right pleural effusion. There is no left pleural effusion or pneumothorax. The cardiomediastinal silhouette is normal. > Dictated by Ahestrella MOREJON, FRCR (residential insurance inspector). Celestine Aly MD have personally reviewed and interpreted this examination/study. > Interpreting Provider: Celestine Ro MD on 05/19/2024 12:31 AM Procedure Note Celestine Ro MD - 05/19/2024 PROCEDURE: XR CHEST 1VW PORTABLE, DATE/TIME OF EXAM: 05/18/2024 4:33 AM, LOCATION [facility] INDICATION: J96.01: Acute respiratory failure with hypoxia (HCC) ADDITIONAL CLINICAL INFORMATION: Ordering Provider Reason For Exam: Worsening? COMPARISON: Chest radiograph 05/16/2024 FINDINGS/IMPRESSION: Lines, tubes, hardware: *Enteric tube seen coursing below the diaphragm with tip in the gastric fundus. Right lower zone airspace disease, which could be due to aspiration or atelectasis, superadded infection is not excluded, this has improved.right pleural effusion. There is no left pleural effusion or pneumothorax. The cardiomediastinal silhouette is normal. > Dictated by Julian MOREJON YORDAN (residential insurance inspector). Celestine Aly MD have personally reviewed and interpreted this examination/study. > Interpreting Provider: Celestine Ro MD on 05/19/2024 12:31 AM Mitchel De MD DIAGNOSTIC IMAGING O RDERABLES * EKG 12-LEAD (05/16/2024 5:03 PM METROLOGY SPECIALIST) Only the most recent of2 resultswithin the time period is included. Ventricular Rate 92 BPM [facility] MUSE Atrial Rate 92 BPM [facility] MUSE P-R Interval 148 ms [facility] MUSE QRS Duration ms 78 ms [facility] MUSE Q-T Interval ms 392 ms [facility] MUSE QTC Calculation (Bezet) 484 ms [facility] MUSE Calculated P [place] 46 degrees [facility] MUSE Calculated R [place] 30 degrees [facility] MUSE Calculated T [place] 12 degrees [facility] MUSE Interpretation EKG NORMAL SINUS RHYTHM PROLONGED QT ABNORMAL ECG WHEN COMPARED WITH ECG OF 13-MAY-2024 06:43, NO SIGNIFICANT CHANGE WAS FOUND Confirmed by EMIL RIVERA MD ([id number]) on 05/18/2024 2:55:51 PM [facility] MUSE 05/16/2024 5:03 PM METROLOGY SPECIALIST 05/18/2024 2:55 PM METROLOGY SPECIALIST Nuha Segal MD ECG ORDERABLES [facility] MUSE * AMMONIA (05/16/2024 4:41 PM METROLOGY SPECIALIST) Only the most recent of2 resultswithin the time period is included. Ammonia 49 <=72 umol/L 05/16/2024 5:02 PM METROLOGY SPECIALIST [facility] Blood BLOOD SPECIMEN / Unknown Venipuncture / Unknown 05/16/2024 4:41 PM METROLOGY SPECIALIST 05/16/2024 5:02 PM METROLOGY SPECIALIST Nuha Segal MD LAB - CHEMISTRY ORDE RABLES Performing Organization Address City/[facility]/ZIP Co de Phone Number [address] [address], [facility] [phone] * (ABNORMAL) BLOOD GASES ART + COOX PANEL (05/16/2024 4:23 PM METROLOGY SPECIALIST) Only the most recent of6 resultswithin the time period is included. pH Arterial 7.43 7.35 - 7.45 pH 05/16/2024 4:38 PM [facility] pO2 Arterial 133(H) 80 - 100 mmHg 05/16/2024 4:38 PM [facility] pCO2 Arterial 34(L) 35 - 45 mmHg 4:38 PM [facility] HCO3 Arterial 22.6 20.0 - 30.0 mmol/L 05/16/2024 4:38 PM [facility] BE Arterial -0.9 -2.0 - 2.0 mmol/L 05/16/2024 4:38 PM [facility] Oxyhemoglobin Arterial 96.9 % 05/16/2024 4:38 PM [facility] Dexoyhemoglobin (HHB) % <1.0 % 05/16/2024 4:38 PM [facility] Methemoglobin <0.8 0.0 - 2.0 % 05/16/2024 4:38 PM [facility] Carboxyhemoglobin 2.1(H) 0.0 - 2.0 % 2023 4:38 PM [facility] O2 Content Arterial 23.9 Interpret within clinical context ml/dL 05/16/2024 4:38 PM [facility] Hemoglobin by COOX 17.4(H) 12.0 - 15.6 g/dL 05/16/2024 4:38 PM [facility] O2 Saturation Arterial 100 90 - 100 % 05/16/2024 4:38 PM [facility] FI O2 Arterial 100.0 % 05/16/2024 4:38 PM [facility] Blood, arterial ARTERIAL BLOOD SPECIMEN / Unknown Arterial Puncture / Unknown 05/16/2024 4:23 PM METROLOGY SPECIALIST 05/16/2024 4:28 PM [facility] - 05/16/2024 4:38 PM [facility] Carboxyhemoglobin Normal Concentration: Non-smokers: 0-2%; Smokers: 0-9%; Toxic: >20% Nuha Segal MD LAB - BLOOD GASES OR DERABLES [facility] [address] [place] [id number], [facility] [phone] * (ABNORMAL) BASIC METABOLIC PANEL (CALCIUM TOTAL) (05/16/2024 4:12 PM METROLOGY SPECIALIST) BUN 21 7 - 26 mg/dL 05/16/2024 5:16 PM [facility] Creatinine 0.70 0.56 - 0.96 mg/dL 05/16/2024 5:16 PM [facility] Sodium 148(H) 136 - 145 mmol/L 05/16/2024 5:16 PM [facility] Potassium 3.8 3.5 - 4.5 mmol/L 05/16/2024 5:16 PM [facility] Chloride 118(H) 98 - 107 mmol/L 05/16/2024 5:16 PM [facility] CO2 20(L) 22 - 29 mmol/L 05/16/2024 5:16 PM [facility] Glucose 148(H) 70 - 99 mg/dL 05/16/2024 5:16 PM [facility] Calcium 9.9 8.4 - 10.2 mg/dL 05/16/2024 5:16 PM [facility] Anion Gap 10 6 - 16 05/16/2024 5:16 PM [facility] BUN/Creatinine Ratio 30(H) 7 - 23 05/16/2024 5:16 PM [facility] Osmolality Calculated 312(H) 275 - 295 mOsm/kg 05/16/2024 5:16 PM [facility] eGFR by CKD-EPI >90 >=90 mL/min/1.7 3 m2 05/16/2024 5:16 PM [facility] Blood BLOOD SPECIMEN / Unknown Lab Venipuncture / Unknown 05/16/2024 4:12 PM METROLOGY SPECIALIST 05/16/2024 4:30 PM METROLOGY SPECIALIST Nuha Segal MD LAB - CHEMISTRY NADIA VALENTE Performing Organization Address City/[facility]/ZIP Co de Phone Number [facility] [address] [place] [address], [place] [phone] * PTT [facility] (05/16/2024 6:20 AM METROLOGY SPECIALIST) Only the most recent of3 resultswithin the time period is included. APTT 34.8 23.0 - 38.4 Seconds 05/16/2024 6:59 AM [facility] Comment:Suggested therapeuti c range for full dose I.V. unfractionated heparin therapy for venous thromboembolism is 71 to 109 seconds. Blood BLOOD SPECIMEN / Unknown Lab Venipuncture / Unknown 05/16/2024 6:20 AM METROLOGY SPECIALIST 05/16/2024 6:34 AM METROLOGY SPECIALIST Hiren Matias MD LAB - COAGULATION OR DERABLES [facility] [address] [place] [address], [place] [phone] * FERRITIN (05/14/2024 4:05 PM METROLOGY SPECIALIST) Ferritin 534 ng/mL 05/14/2024 5:13 PM METROLOGY SPECIALIST [facility] Blood BLOOD SPECIMEN / Unknown Lab Venipuncture / Unknown 05/14/2024 4:05 PM METROLOGY SPECIALIST 05/14/2024 4:11 PM METROLOGY SPECIALIST Hiren Matias MD LAB - CHEMISTRY NADIA VALENTE [facility] [address] [place] [address], [place] [phone] * MRSA DNA PCR (05/14/2024 2:47 PM METROLOGY SPECIALIST) MRSA DNA by PCR Not detected Not detected 05/14/2024 7:24 PM METROLOGY SPECIALIST [facility]CRO[facility] Microbiology SPECIMEN FROM NASAL FOSSAE / Unknown Collection / Unknown 05/14/2024 2:47 PM METROLOGY SPECIALIST 05/14/2024 2:51 PM METROLOGY SPECIALIST Narrative [facility] - 05/14/2024 7:24 PM METROLOGY SPECIALIST Methicillin-resistant Staphylococcus aureus (MRSA) DNA is not detected (presumed not colonized with MRSA). Jun Allen MD LAB - MICROBIOLOGY O RDERABLES Performing Organization Address City/[facility]/ZIP Co de Phone Number [facility] [address] [place] [address], [facility] [phone] * (ABNORMAL) BLOOD GASES PAT + COOX PANEL (05/14/2024 2:46 PM METROLOGY SPECIALIST) pH Venous 7.51(H) 7.32 - 7.42 pH 05/14/2024 2:56 PM METROLOGY SPECIALIST [facility] pO2 Venous 53(H) 35 - 40 mmHg 05/14/2024 2:56 PM [facility] pCO2 Venous 29(L) 40 - 50 mmHg 05/14/2024 2:56 PM [facility] HCO3 Venous 23.1 20 - 30 mmol/L 05/14/2024 2:56 PM [facility] Base Excess Venous 1.2 -2.0 - 2.0 mmol/L 05/14/2024 2:56 PM [facility] Oxyhemoglobin Venous 81.8 % 04/18 2:56 PM [facility] Deoxyhemoglobin (HHB) Venous % 15.4 % 05/14/2024 2:56 PM [facility] Methemoglobin 1.1 0.0 - 2.0 % 05/14/2024 2:56 PM [facility] Carboxyhemoglobin 1.7 0.0 - 2.0 % 2023 2:56 PM [facility] O2 Content Venous 17.2 Interpret within clinical context ml/dL 05/14/2024 2:56 PM [facility] Hemoglobin by COOX 15.0 g/dL 2023 2:56 PM [facility] O2 Saturation Venous 84 >=70 % 04/18 2:56 PM [facility] FI O2 Mixed Venous 36.0 % 2023 2:56 PM [facility] Blood BLOOD SPECIMEN / Unknown Venipuncture / Unknown 05/14/2024 2:46 PM METROLOGY SPECIALIST 05/14/2024 2:51 PM METROLOGY SPECIALIST [facility] - 05/14/2024 2:56 PM METROLOGY SPECIALIST Carboxyhemoglobin Normal Concentration: Non-smokers: 0-2%; Smokers: 0-9%; Toxic: >20% Nuha Segal MD LAB - BLOOD GASES OR DERABLES [address] [address], [facility] [phone] * (ABNORMAL) BILIRUBIN DIRECT (05/14/2024 6:23 AM METROLOGY SPECIALIST) Bilirubin Conjugated 1.4(H) 0.1 - 0.5 mg/dL 05/14/2024 7:16 AM [facility] Blood BLOOD SPECIMEN / Unknown Lab Venipuncture / Unknown 05/14/2024 6:23 AM METROLOGY SPECIALIST 05/14/2024 6:42 AM METROLOGY SPECIALIST Hiren Matias MD LAB - CHEMISTRY NADIA VALENTE [address] [address], [facility] [phone] * CULTURE SPUTUM+GRAM STAIN (05/11/2024 1:48 PM METROLOGY SPECIALIST) Only the most recent of2 resultswithin the time period is included. Pathologist [facility] Culture Rare normal oropharyngeal catarino SAURABH 05/13/2024 10:26 AM [facility] MICROBIOLOGY Gram Stain Light Polymorphonuclear cells 05/13/2024 10:26 AM METROLOGY SPECIALIST [facility] MICROBIOLOGY Gram Stain No organisms seen 024 10:26 AM [facility] MICROBIOLOGY Microbiology SPUTUM / Unknown Collection / Unknown 05/11/2024 1:48 PM METROLOGY SPECIALIST 05/11/2024 2:03 PM METROLOGY SPECIALIST Hiren aMtias MD LAB - MICROBIOLOGY O RDERABLES [facility] MICROBIOLOGY [address] [place] [address], [facility] [phone] * (ABNORMAL) DIFFERENTIAL MANUAL (05/06/2024 12:01 AM METROLOGY SPECIALIST) Only the most recent of3 resultswithin the time period is included. Neutrophil % 60 41 - 74 % 05/06/2024 2:01 AM [facility] Lymphocyte % 18 17 - 47 % 05/06/2024 2:01 AM [facility] Monocyte % 18(H) 3 - 11 % 05/06/2024 2:01 AM [facility] Eosinophil % 3 0 - 7 % 05/06/2024 2:01 AM [facility] Basophil % 1 0 - 2 % 05/06/2024 2:01 AM [facility] Neutrophil Absolute 4.86 1.60 - 7.50 x10E9/L 05/06/2024 2:01 AM [facility] Lymphocyte Absolute 1.46 1.00 - 4.40 x10E9/L 05/06/2024 2:01 AM [facility] Monocyte Absolute 1.46(H) 0.15 - 1.00 x10E9/L 05/06/2024 2:01 AM [facility] Eosinophil Absolute 0.24 0.00 - 0.60 x10E9/L 05/06/2024 2:01 AM [facility] Basophil Absolute 0.08 0.00 - 0.13 x10E9/L 05/06/2024 2:01 AM [facility] RBC Morphology REVIEWED 05/06/2024 2:01 AM [facility] Macrocytosis MODERATE(A) (none) 05/06/2024 2:01 AM [facility] Polychromatic Cells MODERATE(A) (none) 05/06/2024 2:01 AM [facility] Schistocytes FEW(A) (none) 05/06/2024 2:01 AM [facility] Blood BLOOD SPECIMEN / Unknown Venipuncture / Unknown 05/06/2024 12:01 AM METROLOGY SPECIALIST 05/06/2024 12:39 AM METROLOGY SPECIALIST Jun Allen MD LAB - HEMATOLOGY ORD ERABLES [facility] [address] [place] [address], [place] [phone] * TRIGLYCERIDES BLOOD (05/05/2024 12:43 AM METROLOGY SPECIALIST) Triglycerides 102 <150 mg/dL 05/05/2024 1:20 AM [facility] Comment: ATP III Classification of Triglycerides: <150 mg/dL: Normal 150 - 199 mg/dL: Borderline High 200 - 400 mg/dL: High >500 mg/dL: Very High Blood BLOOD SPECIMEN / Unknown Venipuncture / Unknown 05/05/2024 12:43 AM METROLOGY SPECIALIST 05/05/2024 12:52 AM METROLOGY SPECIALIST Jun Allen MD LAB - CHEMISTRY ORDE AMBROSIO [facility] [address] [place] [address], [place] [phone] * US Abdomen Ltd W Comp Doppler (05/04/2024 4:11 PM METROLOGY SPECIALIST) Anatomical Region Laterality Modality Abdomen Ultrasound 05/04/2024 3:57 PM METROLOGY SPECIALIST Impressions 05/04/2024 5:16 PM METROLOGY SPECIALIST IMPRESSION: 1.Hepatic cirrhosis without discrete hepatic lesion. 2.Bidirectional flow within the main portal vein and elevated resistive index within the proper hepatic artery, likely secondary to portal hypertension in the setting of cirrhosis. 3.No evidence of cholelithiasis or acute cholecystitis. Focal gallbladder adenomyomatosis. 4.Mild dilatation of the common bile duct to 7 mm. No focal stone identified. MRCP or ERCP may be useful for further evaluation. > Dictated by Calvin Scrhoeder MD (residential insurance inspector). I, Darryl Ayala MD have personally reviewed and interpreted this examination/study. > Interpreting Provider: Darryl Ayala MD on 05/04/2024 5:16 PM Narrative 05/04/2024 5:16 PM METROLOGY SPECIALIST PROCEDURE: US ABDOMEN LTD W COMP DOPPLER, DATE/TIME OF EXAM: 05/04/2024 2:45 PM, LOCATION [facility] INDICATION: K72.90: Decompensated cirrhosis (HCC) K74.60: Decompensated cirrhosis (HCC) COMPARISON: None. FINDINGS: Abdomen: The liver has a coarse echotexture and nodular surface, consistent with cirrhosis. No discrete hepatic mass or intrahepatic biliary dilatation is seen. No gallstones or pericholecystic fluid is seen. The gallbladder wall is normal in thickness, measuring 2 mm. Focal thickening of the gallbladder wall with associated subtle comet tail artifact likely represents focal adenomyomatosis. Sonographic Robles's sign is negative. The common bile duct is mildly dilated up to 7 mm. The right kidney measures 13.6 x 6.2 x 4.7 cm. Limited views of the right kidney reveal no evidence of nephrolithiasis or hydronephrosis. The spleen measures 13.9 cm in length. The visible pancreas is normal in echogenicity. No ascites is present. Liver Doppler: Color and spectral Doppler evaluation demonstrates patency of the hepatic veins with appropriate flow direction and multiphasic waveforms. The left and right portal veins appear patent with normal hepatopetal flow. The main portal vein demonstrates bidirectional flow with a velocity of 29 cm/s. The proper hepatic artery is patent and demonstrates a normal arterial waveform with brisk systolic upstroke and antegrade flow. Resistive index in the proper hepatic artery measures 0.83. Procedure Note Darryl Ayala MD - 05/04/2024 PROCEDURE: US ABDOMEN LTD W COMP DOPPLER, DATE/TIME OF EXAM:05/04/2024 2:45 PM, LOCATION [facility] INDICATION: K72.90: Decompensated cirrhosis (HCC) K74.60: Decompensated cirrhosis (HCC) COMPARISON: None. FINDINGS: Abdomen: The liver has a coarse echotexture and nodular surface, consistent with cirrhosis. No discrete hepatic mass or intrahepatic biliary dilatationis seen. No gallstones or pericholecystic fluid is seen. The gallbladder wall is normal in thickness, measuring 2 mm. Focal thickening of the gallbladder wall with associated subtle comet tail artifact likely represents focal adenomyomatosis. Sonographic Robles's sign is negative. The common bile duct is mildly dilated up to 7 mm. The right kidney measures 13.6 x 6.2 x 4.7 cm. Limited views of theright kidney reveal no evidence of nephrolithiasis or hydronephrosis. Thespleen measures 13.9 cm in length. The visible pancreas is normal inechogenicity. No ascites is present. Liver Doppler: Color and spectral Doppler evaluation demonstrates patency of thehepatic veins with appropriate flow direction and multiphasic waveforms. The left and right portal veins appear patent with normal hepatopetalflow. The main portal vein demonstrates bidirectional flow with a velocity of29 cm/s. The proper hepatic artery is patent and demonstrates a normal arterial waveform with brisk systolic upstroke and antegrade flow. Resistiveindex in the proper hepatic artery measures 0.83. IMPRESSION: 1.Hepatic cirrhosis without discrete hepatic lesion. 2.Bidirectional flow within the main portal vein and elevated resistive index within the proper hepatic artery, likely secondary to portal hypertension in the setting of cirrhosis. 3.No evidence of cholelithiasis or acute cholecystitis. Focalgallbladder adenomyomatosis. 4.Mild dilatation of the common bile duct to 7 mm. No focal stone identified. MRCP or ERCP may be useful for further evaluation. > Dictated by Calvin Schroeder MD (residential insurance inspector). I, Darryl Ayala MD have personally reviewed and interpreted this examination/study. > Interpreting Provider: Darryl Ayala MD on 05/04/2024 5:16 PM Osmani Myers MD US ORDERABLES * (ABNORMAL) IRON + TRANSFERRIN PANEL (05/03/2024 6:45 PM METROLOGY SPECIALIST) Iron 292 ug/dL 05/03/2024 11:55 PM [facility] Transferrin 97(L) 174 - 382 mg/dL 05/03/2024 11:55 PM [facility] Transferrin Saturation % 100(H) 16 - 50 % 05/03/2024 11:55 PM [facility] TIBC Calculated 121 ug/dL 11:55 PM [facility] Blood BLOOD SPECIMEN / Unknown Venipuncture / Unknown 05/03/2024 6:45 PM METROLOGY SPECIALIST 05/03/2024 6:47 PM METROLOGY SPECIALIST Osmani Myers MD LAB - CHEMISTRY ORDE AMBROSIO [facility] [address] [place] [address], [facility] [phone] * (ABNORMAL) URINE MICROSCOPIC ONLY REFLEX TO CULTURE (05/03/2024 2:49 PM METROLOGY SPECIALIST) Reflex Status Culture to follow 05/03/2024 3:26 PM [facility] RBC UA 51-100(A) None Seen, 0-2, 3-5 /HPF 05/03/2024 3:26 PM [facility] WBC UA 21-50(A) None Seen, 0-5 /HPF 05/03/2024 3:26 PM [facility] Squamous Epithelial Cells UA 0-2 None Seen, 0-2, 3-5 /HPF 05/03/2024 3:26 PM [facility] Mucus UA 2+ /LPF 05/03/2024 3:26 PM [facility] Hyaline Casts UA 11-20(A) None Seen, 0-2 /LPF 05/03/2024 3:26 PM [facility] Urine URINE SPECIMEN OBTAINED BY CLEAN CATCH PROCEDURE / Unknown Collection / Unknown 05/03/2024 2:49 PM METROLOGY SPECIALIST 05/03/2024 2:54 PM METROLOGY SPECIALIST Narrative [facility] - 05/03/2024 3:26 PM METROLOGY SPECIALIST Jun Allen MD LAB - URINALYSIS ORD ERABLES [facility] [address] [place] [address], [facility] [phone] * (ABNORMAL) URINALYSIS REFLEX MICROSCOPIC REFLEX CULTURE (05/03/2024 2:49 PM METROLOGY SPECIALIST) Color UA Yellow Straw, Yellow 05/03/2024 3:23 PM [facility] Clarity UA Slt Cloudy(A) Clear 05/03/2024 3:23 PM [facility] Specific Marston UA 1.011 1.005 - 1.030 05/03/2024 3:23 PM [facility] pH UA 5.0 5.0 - 8.0 pH 05/03/2024 3:23 PM [facility] Protein UA Negative Negative 05/03/2024 3:23 PM [facility] Glucose UA Negative Negative 05/03/2024 3:23 PM [facility] Ketone UA Negative Negative 05/03/2024 3:23 PM [facility] Bilirubin UA Negative Negative 05/03/2024 3:23 PM [facility] Blood UA 1+(A) Negative 05/03/2024 3:23 PM [facility] Nitrite UA Negative Negative 05/03/2024 3:23 PM [facility] Leukocyte Esterase Negative Negative 05/03/2024 3:23 PM [facility] Urobilinogen UA Negative Negative mg/dL 05/03/2024 3:23 PM [facility] Urine URINE SPECIMEN OBTAINED BY CLEAN CATCH PROCEDURE / Unknown Collection / Unknown 05/03/2024 2:49 PM METROLOGY SPECIALIST 05/03/2024 2:54 PM METROLOGY SPECIALIST [facility] - 05/03/2024 3:23 PM METROLOGY SPECIALIST Jun Allen MD LAB - URINALYSIS ORD ERABLES [facility] [address] [place] [address], [facility] [phone] * STREP PNEUMONIAE ANTIGEN URINE (05/03/2024 2:49 PM METROLOGY SPECIALIST) Streptococcus pneumoniae Antigen Urine Negative Negative 05/04/2024 8:42 AM METROLOGY SPECIALIST [facility] MICROBIOLOG[facility] Urine URINE / Unknown Collection / Unknown 05/03/2024 2:49 PM METROLOGY SPECIALIST 05/03/2024 2:54 PM METROLOGY SPECIALIST Narrative [facility]CRO[facility] - 05/04/2024 8:42 AM METROLOGY SPECIALIST Patients who have received the Streptococcus pneumoniae vaccines may test positive in the 48 hours following vaccination. It is recommended to avoid testing within five days of receiving vaccination. Testing pediatric patients is discouraged because of their high rates of nasal colonization with Streptococcus pneumoniae leading to false positive results. Samples from patients taking antibiotics for more than 24 hours may cause false negatives. Eder Bravo MD LAB - MICROBIOL OGY ORDERABLES Performing Organization Address [facility] Co de Phone Number [facility] [address] [place] [address], [facility] [phone] * LEGIONELLA ANTIGEN URINE (05/03/2024 2:49 PM METROLOGY SPECIALIST) Legionella Antigen Urine Negative Negative 05/04/2024 8:13 AM [facility] MICROBIOLOGY Urine URINE / Unknown Collection / Unknown 05/03/2024 2:49 PM METROLOGY SPECIALIST 05/03/2024 2:54 PM METROLOGY SPECIALIST Narrative [facility]CRO[facility] - 05/04/2024 8:13 AM METROLOGY SPECIALIST This assay detects Legionella pneumophila serogroup one (1) antigen. A negative test result does not rule out the possibility of Legionella infection due to other serogroups or species of Legionella. A positive result may indicate a recent or remote infection with serogroup 1. Eder Bravo MD LAB - MICROBIOL OGY ORDERABLES Performing Organization Address [facility] Co de Phone Number [facility] [address] [place] [address], [facility] [phone] * CULTURE URINE (05/03/2024 2:49 PM METROLOGY SPECIALIST) Culture Urine No growth (<100 CFU/mL) SAURABH 05/05/2024 12:31 AM METROLOGY SPECIALIST [facility]CROBIOLOG[facility] Urine URINE SPECIMEN OBTAINED BY CLEAN CATCH PROCEDURE / Unknown Collection / Unknown 05/03/2024 2:49 PM METROLOGY SPECIALIST 05/03/2024 3:26 PM METROLOGY SPECIALIST Jun Allen MD LAB - MICROBIOLOGY O RDERABLES [facility] [address] [place] [address], [place] [phone] * ECHO COMPLETE W CONTRAST W BUBBLE STUDY (05/03/2024 2:00 PM METROLOGY SPECIALIST) RVOT diam Doppler 2.642 cm SSM CV FUJI PACS Aortic annulus 2.408 cm SSM C V FUJI PACS Sinus of Valsalva 2.838 cm SSM CV FUJI PACS ST junction 2.572 cm SSM CV F UJI PACS LA vol index 0.048 l/m SSM CV FUJI PACS Myocardial strain charge 2 unitless SSM CV FUJI PACS IVSd 2D 1.258 cm SSM CV FUJ I PACS LVIDd 4.736 cm SSM CV FUJ I PACS LVIDs 2.611 cm SSM CV FUJ I PACS LVOT diam 2.178 cm SSM CV FUJ I PACS LVPWd 1.239 cm SSM CV FUJ I PACS LV biplane EF 83.315 % SSM CV FUJI PACS LV A2C EF 82.876 % SSM CV FUJ I PACS LV A4C EF 84.968 % SSM CV FUJ I PACS LV EDV A2C 135.994 ml SSM CV FU JI PACS LV EDV A4C 132.897 ml SSM CV FU JI PACS LV ESV A2C 23.287 ml SSM CV FU JI PACS LV ESV A4C 19.977 ml SSM CV FU JI PACS LVOT pk andrew 156.13 cm/s SSM CV F UJI PACS LVOT VTI 29.583 cm SSM CV FUJ I PACS RV-gallego basal diam 3.253 cm SSM CV FUJI PACS RVIDd 3.1 cm SSM CV FUJ I PACS RVOT pk andrew 94.211 cm/s SSM CV F UJI PACS RVOT VTI 20.129 cm SSM CV FUJ I PACS LA size 4.79 cm SSM CV FUJ I PACS LA vol BP 86.983 ml SSM CV FUJ I PACS RA area 16.209 cm SSM CV FUJI PACS AV mn grad 7.512 mmHg SSM CV FU JI PACS AV pk andrew 192.865 cm/s SSM CV FUJ I PACS AV VTI 36.105 cm SSM CV FUJ I PACS MV A pk andrew 90.525 cm/s SSM CV F UJI PACS MV E pk andrew 107.95 cm/s SSM CV F UJI PACS MV E' lateral andrew 13.245 cm/s SSM CV FUJI PACS MV lat a' andrew 10.849 cm/s SSM CV FUJI PACS MV lat S' andrew 12.656 cm/s SSM CV FUJI PACS RV-gallego mid diam 3.004 cm SSM CV FUJI PACS MV mn grad 1.812 mmHg SSM CV FU JI PACS MV VTI 34.837 cm SSM CV FUJ I PACS PV pk andrew 129.553 cm/s SSM CV FUJ I PACS PV VTI 26.389 cm SSM CV FUJ I PACS Ascending aorta 2.869 cm SSM CV FUJI PACS IVC Diam Expiration 1.857 cm SSM CV FUJI PACS Anatomical Region Laterality Modality Ultrasound 05/03/2024 1:20 PM METROLOGY SPECIALIST Narrative 05/03/2024 9:47 PM METROLOGY SPECIALIST Summary * Findings consistent with elevated venous pressure and effects of HTN with LVH and diastolic dysfunction. No prior study for comparison. Trivial extracardiac shunt. Atrial septum intact. * The left ventricle is mildly dilated, with hyperdynamic systolic function and an estimated ejection fraction of 83 % by biplane method of disks. Left ventricular wall motion is normal. * Right ventricle is normal in size with normal systolic function. * The left ventricle is mildly dilated. EDVI 74 ml/M2. * Left ventricular systolic function is hyperdynamic with an estimated ejection fraction of 83% by biplane method of disks. * Left ventricular segmental wall motion is normal. * The left ventricular mass is moderately increased with concentric hypertrophy. LV mass index 126 gm/M2. RWT 0.52. * The left ventricular diastolic function is consistent with grade II diastolic dysfunction and mildly increased left atrial filling pressure. * The right ventricle is normal in size. * Right ventricular systolic function is normal. * The left atrium is moderately dilated with a left atrial volume index of 48 ml/m2 by BP MOD. * The right atrium is normal in size. * Intact interatrial septum visualized by 2D and color Doppler imaging. * Agitated saline contrast study at rest and with Valsalva is positive for a small extracardiac shunt. * The aortic valve is trileaflet. * There is no aortic valve stenosis with a peak velocity of 1.9 m/s, mean gradient of 8 mmHg, and aortic valve area of 3.05 cm2. Valve area index 1.7 cm2/M2. Stroke volume index 61 ml/M2. Cardiac index 4.0 L/min/M2. * There is no aortic valve regurgitation. * The mitral valve is normal. * Mitral valve area by 2D Planimetry is 4.90 cm2. * There is trace mitral valve regurgitation. * The tricuspid valve is normal. * There is no tricuspid valve regurgitation. * Unable to assess pulmonary pressures due to a lack of tricuspid and pulmonic regurgitation. * The descending aortic arch is normal in size measuring 2.7 cm. * The ascending aorta is normal in size when indexed to BSA. * Normal inferior vena cava with < 50% collapse upon inspiration consistent with elevated right atrial pressure, 8 mmHg. * There is no pericardial effusion. Patient Info Name: Amee Oconnell Age: 49 years : 1975 Gender: Other Ht: 64 in Wt: 155 lb BSA: 1.80 m2 HR: 64 bpm BP: 103 / 53 mmHg Exam Date: 05/03/2024 1:20 PM Patient Status: I/P Study Site: [facility] Primary Location: [facility] EStudy Info Technical Quality: Fair Exam Type: ECHO COMPLETE W CONTRAST W BUBBLE STUDY Indications R06.00 - Dyspnea, unspecified type Procedure(s) * A complete 2D, color Doppler, and spectral Doppler transthoracic echocardiogram was performed. * An Ultrasound Enhancing Agent (UEA) was utilized to enhance endocardial definition, opacify the left ventricle and further assess left ventricular function and wall motion. Contrast/Agitated Saline Contrast / Saline: Definity Amount: 1.50 ml Reaction to Contrast: no Reason for Technically Difficult Study: patient on ventilation, restricted mobility Staff Referring Physician: Jun Allen Ordering Provider: Jun Allen Attending Physician: Jun Allen [employer] Craftsman: Willard Wallis Left Ventricle The left ventricle is mildly dilated. EDVI 74 ml/M2. Left ventricular systolic function is hyperdynamic with an estimated ejection fraction of 83% by biplane method of disks. Left ventricular segmental wall motion is normal. The left ventricular mass is moderately increased with concentric hypertrophy. LV mass index 126 gm/M2. RWT 0.52. The left ventricular diastolic function is consistent with grade II diastolic dysfunction and mildly increased left atrial filling pressure. Right Ventricle The right ventricle is normal in size. Right ventricular systolic function is normal. Right ventricular wall thickness is normal. Ventricular Septum Intact interventricular septum visualized by 2D and color Doppler and agitated saline imaging. Left Atrium The left atrium is moderately dilated with a left atrial volume index of 48 ml/m2 by BP MOD. No mass or thrombus formation in the left atrium. Right Atrium The right atrium is normal in size. No mass or thrombus formation in the right atrium. Atrial Septum Intact interatrial septum visualized by 2D and color Doppler imaging. Agitated saline contrast study at rest and with Valsalva is positive for a small extracardiac shunt. Aortic Valve The aortic valve is trileaflet. There is no aortic valve stenosis with a peak velocity of 1.9 m/s, mean gradient of 8 mmHg, and aortic valve area of 3.05 cm2. Valve area index 1.7 cm2/M2. Stroke volume index 61 ml/M2. Cardiac index 4.0 L/min/M2. There is no aortic valve regurgitation. Pulmonic Valve The pulmonic valve is normal. There is no pulmonic valve stenosis. There is no pulmonic regurgitation. Pulmonary valve area by Continuity Equation is 4.2 cm2. Mitral Valve The mitral valve is normal. There is no mitral valve stenosis. There is trace mitral valve regurgitation. Mitral valve diastolic mean gradient is 2 mmHg. Mitral valve area by 2D Planimetry is 4.90 cm2. Tricuspid Valve The tricuspid valve is normal. There is no significant tricuspid valve stenosis. There is no tricuspid valve regurgitation. Unable to assess pulmonary pressures due to a lack of tricuspid and pulmonic regurgitation. Inferior Vena Cava The inferior vena cava is normal in size (< 2.1 cm). There is < 50% collapse of the IVC upon inspiration with an estimated right atrial pressure of 8 mmHg. Normal inferior vena cava with < 50% collapse upon inspiration consistent with elevated right atrial pressure, 8 mmHg. Pericardium/Pleural There is no pericardial effusion. Aorta The aortic root at the sinus of Valsalva is normal in size. The ascending aorta is normal in size. The aortic root at the sinus of Valsalva is normal in size when indexed to BSA. The ascending aorta is normal in size when indexed to BSA. The descending aortic arch is normal in size measuring 2.7 cm. Measurements Left Ventricular Outflow Tract Name Value Normal LVOT 2D LVOT Diameter 2.2 cm LVOT Area 3.7 cm2 LVOT Doppler LVOT Peak Velocity 1.6 m/s LVOT Peak Gradient 10 mmHg LVOT Mean Velocity 94.95 cm/s LVOT Mean Gradient 4 mmHg LVOT VTI 29.6 cm LVOT VTI/AV VTI Ratio 0.8 LVOT Stroke Volume 110 ml LVOT Stroke Volume Index 61 ml/m2 35-58 LVOT CO 7.3 l/min LVOT CI 4.1 l/min/m2 Pulmonic Valve Name Value Normal PV 2D RVOT Diameter (2D) 2.6 cm 1.7-2.7 RVOT Doppler RVOT Peak Velocity 0.9 m/s RVOT Peak Gradient 4 mmHg RVOT Mean Gradient 2 mmHg PV Doppler PV Peak Velocity 1.3 m/s PV Peak Gradient 7 mmHg PV Mean Gradient 3 mmHg PV Area (Cont Eq VTI) 4.18 cm2 PV Area Index (Cont Eq VTI) 2.33 cm2/m2 PV Area (Cont Eq Andrew) 4.0 cm2 PV Area Index (Cont Eq Andrew) 2.22 cm2/m2 Mitral Valve Name Value Normal MV 2D/MM MV Area (Planimetry) 4.90 cm2 4.00-5.00 MV Annulus Diameter (PLAX) 2.5 cm MV Annulus Diameter (2C) 3.0 cm MV Annulus Diameter (4C) 3.0 cm <=4.4 MV Doppler MV Peak Gradient 5 mmHg MV Mean Gradient 2 mmHg MV DI (VTI) 1.18 MV Decel Time (CW) 251 ms MV PHT 73 ms MV Area (PHT) 3.02 cm2 4.00-5.00 MV Area (Cont Eq VTI) 3.16 cm2 MV Regurgitation Doppler MR Volume (Cont Eq) 3 ml MR Fraction (Cont Eq) 3 % MV Diastolic Function MV E Peak Velocity 1.1 m/sec MV A Peak Velocity 0.9 m/sec MV E/A 1.2 MV Decel Time (PW) 254 ms MV A Wave Duration 158 ms MV Annular TDI MV Septal s' Velocity 14 cm/s MV Septal e' Velocity 8 cm/s >=8 MV Septal a' Velocity 10 cm/s MV E/e' (Septal) 13 <=8 MV A/a' (Septal) 10 MV Lateral s' Velocity 13 cm/s MV Lateral e' Velocity 13 cm/s >=10 MV Lateral a' Velocity 11 cm/s MV E/e' (Lateral) 8 <=8 MV A/a' (Lateral) 8 MV e' Average 11 cm/s MV E/e' (Average) 11 Tricuspid Valve Name Value Normal TV 2D TV Annulus Diameter (4C) 2.7 cm TV Doppler TV Peak Velocity 0.7 m/s TV Peak Gradient 2 mmHg TV Mean Gradient 1 mmHg TV PHT 61 ms TV Area (PHT) 3.62 cm2 Estimated PAP/RSVP RA Pressure 8 mmHg <=5 TV Diastolic Function TV E Peak Velocity 0.7 m/sec TV A Peak Velocity 0.7 m/sec TV E/A 1.0 0.8-2.0 TV Decel Time 210 ms >=120 RV IVRT (PW) 67 ms TV Annular TDI TV Lateral Janet s' Velocity 21 cm/s 10-19 TV Lateral Janet e' Velocity 12 cm/s 8-20 TV Lateral Janet a' Velocity 13 cm/s TV E/e' 6 2-6 TV A/a' 5 Pulmonary Vessels Name Value Normal Pulmonary Veins Pulm Vein Peak Systolic Velocity 57.8 cm/s Pulm Vein Peak Diastolic Velocity 51.4 cm/s Pulm Vein S/D Velocity Ratio 1 Pulm Vein Ar Velocity 31.1 cm/s Pulm Vein Ar Dur - MV A Dur 38 ms Aorta Name Value Normal Ascending Aorta Ao Annulus Diameter 2.4 cm Ao Annulus Diam Index 1.3 cm/m2 Sinus of Valsalva Diameter 2.8 cm Sinus of Valsalva Index 1.6 cm/m2 Ao Sinotub Junction Diameter 2.6 cm Asc Ao Diameter 2.9 cm Asc Ao Diameter Index 1.6 cm/m2 Mid Asc Ao Diameter 3.0 cm Distal Asc Ao Diameter 3.0 cm Thoracic Aorta Ao Arch Diameter 2.8 cm Distal Transverse Arch Diameter 2.7 cm Ao Isthmus Diameter 2.6 cm Desc Ao Diameter 2.1 cm Septae/Shunt/Generic Name Value Normal Qp/Qs Qp/Qs 1.0 Miscellaneous Measurements PW Doppler of antegrade systolic flow in proximal descending aorta VTI 21.44 cm PW Doppler of antegrade systolic flow in proximal descending aorta Mean Velocity 54.55 cm/s PW Doppler of antegrade systolic flow in proximal descending aorta Peak Gradient 3 mmHg PW Doppler of antegrade systolic flow in proximal descending aorta Peak Velocity 84.28 cm/s PW Doppler of antegrade systolic flow in proximal descending aorta Mean Gradient 1 mmHg Venous Name Value Normal IVC/SVC IVC Diameter 1.9 cm <=2.1 IVC Diameter (Insp 2D) 1.5 cm IVC Diameter Percent Change (2D) 21 % >=50 Aortic Valve Name Value Normal AV 2D/MM AV Area (Planimetry) 3.07 cm2 >=3.00 AV Cusp Sep (MM) 1.9 cm AV Doppler AV Peak Velocity 1.93 m/s AV Peak Gradient 15 mmHg AV Mean Gradient 8 mmHg AV VTI 36 cm AV Area (Cont Eq VTI) 3.05 cm2 >=2.00 AV Area (Cont Eq Andrew) 3.02 cm2 AV DI (VTI) 0.82 AV DI (Andrew) 0.81 AV Regurgitation 2D LVOT Area 3.72 cm2 AV Regurgitation Doppler AR Fraction (Cont Eq) 0 % AR Volume (Cont Eq) 0 ml Ventricles Name Value Normal LV Dimensions 2D/MM IVS Diastolic Thickness (2D) 1.3 cm LVID Diastole (2D) 4.7 cm LVPW Diastolic Thickness (2D) 1.2 cm LVID Systole (2D) 2.6 cm LV Systolic Endo Area 5 cm2 LV Diastolic Endo Area 20 cm2 LV Systolic Epic Area 27 cm2 LV Diastolic Epic Area 43 cm2 LV Mass (2D Cubed) 227 g LV Mass Index (2D Cubed) 126 g/m2 Relative Wall Thickness (2D) 0.52 <=0.42 LV Fractional Shortening/Ejection Fraction 2D/MM LV Fractional Shortening (2D) 39 % LV EF (2D Teicholz) 76 % LV Diastolic Volume (4C MOD) 133 ml LV EF (4C MOD) 85 % LV Diastolic Volume (2C MOD) 136 ml LV EF (2C MOD) 83 % LV Diastolic Volume (BP MOD) 136 ml LV Diastolic Volume Index (BP MOD) 76 ml/m2 LV Systolic Volume (BP MOD) 23 ml LV Systolic Volume Index (BP MOD) 13 ml/m2 LV EF (BP MOD) 83 % LV Diastolic Length (4C) 9.2 cm LV Systolic Length (4C) 6.5 cm LV End Diastolic Volume (BP A-L) 151 ml LV End Systolic Volume (BP A-L) 28 ml LV EF (BP A-L) 81 % LV Stroke Volume (4C MOD) 113 ml RV Dimensions 2D/MM RVID Diastole (2D) 3.1 cm 2.5-3.5 RVID Systole (2D) 2.2 cm RV Diastolic Wall Thickness (2D) 0.6 cm 0.1-0.5 RV Systolic Wall Thickness (2D) 0.8 cm RV Basal Diastolic Dimension 3.3 cm 2.5-4.1 RV Mid-Cavity Diastolic Dimension 3.0 cm 1.9-3.5 RV Diastolic Length (4C) 6.7 cm 5.9-8.3 RV Diastolic Area (4C) 15 cm2 RV Systolic Area (4C) 8 cm2 RV Fractional Shortening 2D RV FAC (4C) 49 % >=35 Atria Name Value Normal LA Dimensions LA Dimension (2D) 4.8 cm LA Dimen Index (2D) 2.7 cm/m2 LA Volume (BP MOD) 87 ml LA Volume Index (BP MOD) 48 ml/m2 RA Dimensions RA Area (4C) 16 cm2 <=18 RA Area (4C) Index 9 cm2/m2 RA ESV (4C MOD) 42 ml RA ESV Index (4C MOD) 23 ml/m2 Pericardium Name Value Normal Pericardium 2D/MM Pericardial Effusion Diastole (2D) 0.0 cm Report Signatures Finalized by Calvin Holman MD on 05/03/2024 09:47 PM Procedure Note Calvin Holman MD - 05/03/2024 Summary * Findings consistent with elevated venous pressure and effects of HTNwith LVH and diastolic dysfunction. No prior study for comparison. Trivial extracardiac shunt. Atrial septum intact. * The left ventricle is mildly dilated, with hyperdynamic systolicfunction and an estimated ejection fraction of 83 % by biplane method of disks.Left ventricular wall motion is normal. * Right ventricle is normal in size with normal systolic function. * The left ventricle is mildly dilated. EDVI 74 ml/M2. * Left ventricular systolic function is hyperdynamic with an estimated ejection fraction of 83% by biplane method of disks. * Left ventricular segmental wall motion is normal. * The left ventricular mass is moderately increased with concentric hypertrophy. LV mass index 126 gm/M2. RWT 0.52. * The left ventricular diastolic function is consistent with grade II diastolic dysfunction and mildly increased left atrial filling pressure. * The right ventricle is normal in size. * Right ventricular systolic function is normal. * The left atrium is moderately dilated with a left atrial volume indexof 48 ml/m2 by BP MOD. * The right atrium is normal in size. * Intact interatrial septum visualized by 2D and color Dopplerimaging. * Agitated saline contrast study at rest and with Valsalva is positivefor a small extracardiac shunt. * The aortic valve is trileaflet. * There is no aortic valve stenosis with a peak velocity of 1.9 m/s,mean gradient of 8 mmHg, and aortic valve area of 3.05 cm2. Valve area index1.7 cm2/M2. Stroke volume index 61 ml/M2. Cardiac index 4.0 L/min/M2. * There is no aortic valve regurgitation. * The mitral valve is normal. * Mitral valve area by 2D Planimetry is 4.90 cm2. * There is trace mitral valve regurgitation. * The tricuspid valve is normal. * There is no tricuspid valve regurgitation. * Unable to assess pulmonary pressures due to a lack of tricuspid and pulmonic regurgitation. * The descending aortic arch is normal in size measuring 2.7 cm. * The ascending aorta is normal in size when indexed to BSA. * Normal inferior vena cava with < 50% collapse upon inspirationconsistent with elevated right atrial pressure, 8 mmHg. * There is no pericardial effusion. Patient Info Name: Amee Oconnell Age: 49 years : 1975 Gender: Other Ht: 64 in Wt: 155 lb BSA: 1.80 m2 HR: 64 bpm BP: 103 / 53 mmHg Exam Date: 05/03/2024 1:20 PM Patient Status: I/P Study Site: [facility] Primary Location: [facility] EStudy Info Technical Quality: Fair Exam Type: ECHO COMPLETE W CONTRAST W BUBBLE STUDY Indications R06.00 - Dyspnea, unspecified type Procedure(s) * A complete 2D, color Doppler, and spectral Doppler transthoracic echocardiogram was performed. * An Ultrasound Enhancing Agent (UEA) was utilized to enhanceendocardial definition, opacify the left ventricle and further assess leftventricular function and wall motion. Contrast/Agitated Saline Contrast / Saline: Definity Amount: 1.50 ml Reaction to Contrast: no Reason for Technically Difficult Study: patient on ventilation,restricted mobility Staff Referring Physician: Jun Allen Ordering Provider: Jun Allen Attending Physician: Jun Allen [employer]: Willardbrody Wallis Left Ventricle The left ventricle is mildly dilated. EDVI 74 ml/M2. Left ventricular systolic function is hyperdynamic with an estimated ejection fraction of83% by biplane method of disks. Left ventricular segmental wall motion isnormal. The left ventricular mass is moderately increased with concentrichypertrophy. LV mass index 126 gm/M2. RWT 0.52. The left ventricular diastolicfunction is consistent with grade II diastolic dysfunction and mildly increased left atrial filling pressure. Right Ventricle The right ventricle is normal in size. Right ventricular systolicfunction is normal. Right ventricular wall thickness is normal. Ventricular Septum Intact interventricular septum visualized by 2D and color Doppler and agitated saline imaging. Left Atrium The left atrium is moderately dilated with a left atrial volume index of48 ml/m2 by BP MOD. No mass or thrombus formation in the left atrium. Right Atrium The right atrium is normal in size. No mass or thrombus formation inthe right atrium. Atrial Septum Intact interatrial septum visualized by 2D and color Doppler imaging. Agitated saline contrast study at rest and with Valsalva is positive fora small extracardiac shunt. Aortic Valve The aortic valve is trileaflet. There is no aortic valve stenosis witha peak velocity of 1.9 m/s, mean gradient of 8 mmHg, and aortic valve areaof 3.05 cm2. Valve area index 1.7 cm2/M2. Stroke volume index 61 ml/M2.Cardiac index 4.0 L/min/M2. There is no aortic valve regurgitation. Pulmonic Valve The pulmonic valve is normal. There is no pulmonic valve stenosis. Thereis no pulmonic regurgitation. Pulmonary valve area by Continuity Equation is4.2 cm2. Mitral Valve The mitral valve is normal. There is no mitral valve stenosis. Thereis trace mitral valve regurgitation. Mitral valve diastolic mean gradient is2 mmHg. Mitral valve area by 2D Planimetry is 4.90 cm2. Tricuspid Valve The tricuspid valve is normal. There is no significant tricuspid valve stenosis. There is no tricuspid valve regurgitation. Unable to assess pulmonary pressures due to a lack of tricuspid and pulmonicregurgitation. Inferior Vena Cava The inferior vena cava is normal in size (< 2.1 cm). There is < 50%collapse of the IVC upon inspiration with an estimated right atrial pressure of 8mmHg. Normal inferior vena cava with < 50% collapse upon inspiration consistentwith elevated right atrial pressure, 8 mmHg. Pericardium/Pleural There is no pericardial effusion. Aorta The aortic root at the sinus of Valsalva is normal in size. Theascending aorta is normal in size. The aortic root at the sinus of Valsalva isnormal in size when indexed to BSA. The ascending aorta is normal in size whenindexed to BSA. The descending aortic arch is normal in size measuring 2.7 cm. Measurements Left Ventricular Outflow Tract Name Value Normal LVOT 2D LVOT Diameter 2.2 cm LVOT Area 3.7 cm2 LVOT Doppler LVOT Peak Velocity 1.6 m/s LVOT Peak Gradient 10 mmHg LVOT Mean Velocity 94.95 cm/s LVOT Mean Gradient 4 mmHg LVOT VTI 29.6 cm LVOT VTI/AV VTI Ratio 0.8 LVOT Stroke Volume 110 ml LVOT Stroke Volume Index 61 ml/m2 35-58 LVOT CO 7.3 l/min LVOT CI 4.1 l/min/m2 Pulmonic Valve Name Value Normal PV 2D RVOT Diameter (2D) 2.6 cm 1.7-2.7 RVOT Doppler RVOT Peak Velocity 0.9 m/s RVOT Peak Gradient 4 mmHg RVOT Mean Gradient 2 mmHg PV Doppler PV Peak Velocity 1.3 m/s PV Peak Gradient 7 mmHg PV Mean Gradient 3 mmHg PV Area (Cont Eq VTI) 4.18 cm2 PV Area Index (Cont Eq VTI) 2.33 cm2/m2 PV Area (Cont Eq Andrew) 4.0 cm2 PV Area Index (Cont Eq Andrew) 2.22 cm2/m2 Mitral Valve Name Value Normal MV 2D/MM MV Area (Planimetry) 4.90 cm2 4.00-5.00 MV Annulus Diameter (PLAX) 2.5 cm MV Annulus Diameter (2C) 3.0 cm MV Annulus Diameter (4C) 3.0 cm <=4.4 MV Doppler MV Peak Gradient 5 mmHg MV Mean Gradient 2 mmHg MV DI (VTI) 1.18 MV Decel Time (CW) 251 ms MV PHT 73 ms MV Area (PHT) 3.02 cm2 4.00-5.00 MV Area (Cont Eq VTI) 3.16 cm2 MV Regurgitation Doppler MR Volume (Cont Eq) 3 ml MR Fraction (Cont Eq) 3 % MV Diastolic Function MV E Peak Velocity 1.1 m/sec MV A Peak Velocity 0.9 m/sec MV E/A 1.2 MV Decel Time (PW) 254 ms MV A Wave Duration 158 ms MV Annular TDI MV Septal s' Velocity 14 cm/s MV Septal e' Velocity 8 cm/s >=8 MV Septal a' Velocity 10 cm/s MV E/e' (Septal) 13 <=8 MV A/a' (Septal) 10 MV Lateral s' Velocity 13 cm/s MV Lateral e' Velocity 13 cm/s >=10 MV Lateral a' Velocity 11 cm/s MV E/e' (Lateral) 8 <=8 MV A/a' (Lateral) 8 MV e' Average 11 cm/s MV E/e' (Average) 11 Tricuspid Valve Name Value Normal TV 2D TV Annulus Diameter (4C) 2.7 cm TV Doppler TV Peak Velocity 0.7 m/s TV Peak Gradient 2 mmHg TV Mean Gradient 1 mmHg TV PHT 61 ms TV Area (PHT) 3.62 cm2 Estimated PAP/RSVP RA Pressure 8 mmHg <=5 TV Diastolic Function TV E Peak Velocity 0.7 m/sec TV A Peak Velocity 0.7 m/sec TV E/A 1.0 0.8-2.0 TV Decel Time 210 ms >=120 RV IVRT (PW) 67 ms TV Annular TDI TV Lateral Janet s' Velocity 21 cm/s 10-19 TV Lateral Janet e' Velocity 12 cm/s 8-20 TV Lateral Janet a' Velocity 13 cm/s TV E/e' 6 2-6 TV A/a' 5 Pulmonary Vessels Name Value Normal Pulmonary Veins Pulm Vein Peak Systolic Velocity 57.8 cm/s Pulm Vein Peak Diastolic Velocity 51.4 cm/s Pulm Vein S/D Velocity Ratio 1 Pulm Vein Ar Velocity 31.1 cm/s Pulm Vein Ar Dur - MV A Dur 38 ms Aorta Name Value Normal Ascending Aorta Ao Annulus Diameter 2.4 cm Ao Annulus Diam Index 1.3 cm/m2 Sinus of Valsalva Diameter 2.8 cm Sinus of Valsalva Index 1.6 cm/m2 Ao Sinotub Junction Diameter 2.6 cm Asc Ao Diameter 2.9 cm Asc Ao Diameter Index 1.6 cm/m2 Mid Asc Ao Diameter 3.0 cm Distal Asc Ao Diameter 3.0 cm Thoracic Aorta Ao Arch Diameter 2.8 cm Distal Transverse Arch Diameter 2.7 cm Ao Isthmus Diameter 2.6 cm Desc Ao Diameter 2.1 cm Septae/Shunt/Generic Name Value Normal Qp/Qs Qp/Qs 1.0 Miscellaneous Measurements PW Doppler of antegrade systolic flow in proximal descending aorta VTI 21.44 cm PW Doppler of antegrade systolic flow in proximal descending aorta Mean Velocity 54.55 cm/s PW Doppler of antegrade systolic flow in proximal descending aorta Peak Gradient 3 mmHg PW Doppler of antegrade systolic flow in proximal descending aorta Peak Velocity 84.28 cm/s PW Doppler of antegrade systolic flow in proximal descending aorta Mean Gradient 1 mmHg Venous Name Value Normal IVC/SVC IVC Diameter 1.9 cm <=2.1 IVC Diameter (Insp 2D) 1.5 cm IVC Diameter Percent Change (2D) 21 % >=50 Aortic Valve Name Value Normal AV 2D/MM AV Area (Planimetry) 3.07 cm2 >=3.00 AV Cusp Sep (MM) 1.9 cm AV Doppler AV Peak Velocity 1.93 m/s AV Peak Gradient 15 mmHg AV Mean Gradient 8 mmHg AV VTI 36 cm AV Area (Cont Eq VTI) 3.05 cm2 >=2.00 AV Area (Cont Eq Andrew) 3.02 cm2 AV DI (VTI) 0.82 AV DI (Andrew) 0.81 AV Regurgitation 2D LVOT Area 3.72 cm2 AV Regurgitation Doppler AR Fraction (Cont Eq) 0 % AR Volume (Cont Eq) 0 ml Ventricles Name Value Normal LV Dimensions 2D/MM IVS Diastolic Thickness (2D) 1.3 cm LVID Diastole (2D) 4.7 cm LVPW Diastolic Thickness (2D) 1.2 cm LVID Systole (2D) 2.6 cm LV Systolic Endo Area 5 cm2 LV Diastolic Endo Area 20 cm2 LV Systolic Epic Area 27 cm2 LV Diastolic Epic Area 43 cm2 LV Mass (2D Cubed) 227 g LV Mass Index (2D Cubed) 126 g/m2 Relative Wall Thickness (2D) 0.52 <=0.42 LV Fractional Shortening/Ejection Fraction 2D/MM LV Fractional Shortening (2D) 39 % LV EF (2D Teicholz) 76 % LV Diastolic Volume (4C MOD) 133 ml LV EF (4C MOD) 85 % LV Diastolic Volume (2C MOD) 136 ml LV EF (2C MOD) 83 % LV Diastolic Volume (BP MOD) 136 ml LV Diastolic Volume Index (BP MOD) 76 ml/m2 LV Systolic Volume (BP MOD) 23 ml LV Systolic Volume Index (BP MOD) 13 ml/m2 LV EF (BP MOD) 83 % LV Diastolic Length (4C) 9.2 cm LV Systolic Length (4C) 6.5 cm LV End Diastolic Volume (BP A-L) 151 ml LV End Systolic Volume (BP A-L) 28 ml LV EF (BP A-L) 81 % LV Stroke Volume (4C MOD) 113 ml RV Dimensions 2D/MM RVID Diastole (2D) 3.1 cm 2.5-3.5 RVID Systole (2D) 2.2 cm RV Diastolic Wall Thickness (2D) 0.6 cm 0.1-0.5 RV Systolic Wall Thickness (2D) 0.8 cm RV Basal Diastolic Dimension 3.3 cm 2.5-4.1 RV Mid-Cavity Diastolic Dimension 3.0 cm 1.9-3.5 RV Diastolic Length (4C) 6.7 cm 5.9-8.3 RV Diastolic Area (4C) 15 cm2 RV Systolic Area (4C) 8 cm2 RV Fractional Shortening 2D RV FAC (4C) 49 % >=35 Atria Name Value Normal LA Dimensions LA Dimension (2D) 4.8 cm LA Dimen Index (2D) 2.7 cm/m2 LA Volume (BP MOD) 87 ml LA Volume Index (BP MOD) 48 ml/m2 RA Dimensions RA Area (4C) 16 cm2 <=18 RA Area (4C) Index 9 cm2/m2 RA ESV (4C MOD) 42 ml RA ESV Index (4C MOD) 23 ml/m2 Pericardium Name Value Normal Pericardium 2D/MM Pericardial Effusion Diastole (2D) 0.0 cm Report Signatures Finalized by Calvin Holman MD on 05/03/2024 09:47 PM Jun Allen MD ECHO CUPID * CULTURE BLOOD (05/03/2024 12:24 PM METROLOGY SPECIALIST) Only the most recent of2 resultswithin the time period is included. Culture No growth day 5 SAURABH 05/08/2024 4:31 PM METROLOGY SPECIALIST [facility] Blood PERIPHERAL BLOOD / Unknown Venipuncture / Unknown 05/03/2024 12:24 PM METROLOGY SPECIALIST 05/03/2024 1:00 PM METROLOGY SPECIALIST Jun Allen MD LAB - MICROBIOLOGY O [facility]ANC[facility] [address] [place] [address], [facility] [phone] * LACTIC ACID BLOOD (05/03/2024 12:24 PM METROLOGY SPECIALIST) Only the most recent of4 resultswithin the time period is included. Pathologist [facility] Lactic Acid-Stat 1.6 <=2.0 mmol/L 05/03/2024 1:03 PM METROLOGY SPECIALIST [facility] Blood BLOOD SPECIMEN / Unknown Venipuncture / Unknown 05/03/2024 12:24 PM METROLOGY SPECIALIST 05/03/2024 12:32 PM METROLOGY SPECIALIST Jun Allen MD LAB - CHEMISTRY NADIA VALENTE Performing Organization Address City/[facility]/ZIP Co de Phone Number [facility] [address] [place] [address], [place] [phone] * HIV-1 HIV-2 ANTIBODY + HIV P24 AG PANEL (05/03/2024 12:58 AM METROLOGY SPECIALIST) [facility] HIV Antigen/Antibod y 1 & 2 Non-reacti ve Non-react grady 05/03/2024 2:15 AM [facility] Comment:No Laboratory eviden ce of HIV infection. Blood BLOOD SPECIMEN / Unknown Venipuncture / Unknown 05/03/2024 12:58 AM METROLOGY SPECIALIST 05/03/2024 1:26 AM METROLOGY SPECIALIST Jun Allen MD LAB - CHEMISTRY NADIA VALENTE Performing Organization Address City/[facility]/ZIP Co de Phone Number [facility] [address] [place] [address], [place] [phone] * HEMOGLOBIN A1C (05/03/2024 12:58 AM METROLOGY SPECIALIST) Pathologist [facility] Hemoglobin A1c 5.0 <=5.6 % 05/03/2024 8:56 AM [facility] Estimated Average Glucose 97 mg/dL 05/03/2024 8:56 AM [facility] Comment: HbA1c Interpretation: Normal : < 5.7% Pre-diabetes: 5.7-6.4% Diabetes: Equal to or greater than 6.5% Test results diagnostic of diabetes should be repeated for confirmation. Treatment target values recommended by ADA and other clinical organizations should be used to evaluate metabolic control in patients. Reference: [place] [employer], Standards of Care in Diabetes -2020 In patients 70 years and older consider HbA1c target range of 7.0-7.5% (Reference: Jaime Adair et al. JAMDA. 2012) The Sebia assay for the measurement of HbA1c is a National Glycohemoglobin Standardization Program (NGSP) certified method. Blood BLOOD SPECIMEN / Unknown Venipuncture / Unknown 05/03/2024 12:58 AM METROLOGY SPECIALIST 05/03/2024 1:57 AM METROLOGY SPECIALIST Jun Allen MD LAB - CHEMISTRY [facility]IA [facility] Organization Address City/State/ZIP Co de Phone Number [facility] [address] [address], [facility] [phone] * RESPIRATORY PANEL WITH SARS-COV-2 BY PCR ([facility]) (05/02/2024 10:30 PM METROLOGY SPECIALIST) Adenovirus PCR Not detected Not detected 05/03/2024 7:10 AM METROLOGY SPECIALIST [facility] Coronavirus 229E PCR Not detected Not detected 05/03/2024 7:10 AM [facility] Coronavirus HKU1 PCR Not detected Not detected 05/03/2024 7:10 AM [facility] Coronavirus NL63 PCR Not detected Not detected 05/03/2024 7:10 AM METROLOGY SPECIALIST [facility] Coronavirus OC43 PCR Not detected Not detected 05/03/2024 7:10 AM [facility] COVID-19 PCR Not detected Not detected 05/03/2024 7:10 AM METROLOGY SPECIALIST [facility] Human Metapneumovirus PCR Not detected Not detected 05/03/2024 7:10 AM METROLOGY SPECIALIST [facility] Human Rhinovirus/Enterov irus PCR Not detected Not detected 05/03/2024 7:10 AM [facility] Influenza A PCR Not detected Not detected 05/03/2024 7:10 AM METROLOGY SPECIALIST [facility] Influenza B PCR Not detected Not detected 05/03/2024 7:10 AM METROLOGY SPECIALIST [facility] Parainfluenza Virus 1 PCR Not detected Not detected 05/03/2024 7:10 AM METROLOGY SPECIALIST [facility] Parainfluenza Virus 2 PCR Not detected Not detected 05/03/2024 7:10 AM METROLOGY SPECIALIST [facility] Parainfluenza Virus 3 PCR Not detected Not detected 05/03/2024 7:10 AM METROLOGY SPECIALIST [facility] Parainfluenza Virus 4 PCR Not detected Not detected 05/03/2024 7:10 AM METROLOGY SPECIALIST [facility] Respiratory Syncytial Virus PCR Not detected Not detected 05/03/2024 7:10 AM METROLOGY SPECIALIST [facility] Bordetella parapertussis PCR Not detected Not detected 05/03/2024 7:10 AM METROLOGY SPECIALIST [facility] Bordetella pertussis PCR Not detected Not detected 05/03/2024 7:10 AM METROLOGY SPECIALIST [facility] Chlamydia pneumoniae PCR Not detected Not detected 05/03/2024 7:10 AM METROLOGY SPECIALIST [facility] Mycoplasma pneumoniae PCR Not detected Not detected 05/03/2024 7:10 AM METROLOGY SPECIALIST [facility] Microbiology SPECIMEN FROM NASOPHARYNGEAL STRUCTURE / Unknown Collection / Unknown 05/02/2024 10:30 PM METROLOGY SPECIALIST 05/03/2024 1:26 AM METROLOGY SPECIALIST Narrative [facility] - 05/03/2024 7:10 AM METROLOGY SPECIALIST This nucleic amplification assay has received FDA authorization via the [employer]. Jun Allen MD LAB - MICROBIOLOGY O [facility] [address] [place] [address], [facility] [phone] * CULTURE MRSA (05/02/2024 10:30 PM METROLOGY SPECIALIST) Culture Negative for methicillin-resist ant Staphylococcus aureus (MRSA) SAURABH 05/04/2024 7:54 AM METROLOGY SPECIALIST [facility] Microbiology SPECIMEN FROM NASAL FOSSAE / Unknown Collection / Unknown 05/02/2024 10:30 PM METROLOGY SPECIALIST 05/03/2024 1:27 AM METROLOGY SPECIALIST Jun Allen MD LAB - MICROBIOLOGY O [facility] [address] [place] [address], [facility] [phone] * VANCOMYCIN LEVEL RANDOM (05/02/2024 10:21 PM METROLOGY SPECIALIST) Vancomycin Random 17.5 Therapeutic Ranges not established for random specimens ug/mL 05/02/2024 11:05 PM METROLOGY SPECIALIST [facility] Blood BLOOD SPECIMEN / Unknown Venipuncture / Unknown 05/02/2024 10:21 PM METROLOGY SPECIALIST 05/02/2024 10:32 PM METROLOGY SPECIALIST Narrative [facility] - 05/02/2024 11:05 PM METROLOGY SPECIALIST See institution protocol. Jun Allen MD LAB - CHEMISTRY [facility] [address] [place] [id number], [facility] [phone] * PHOSPHATIDYLETHANOL (PETH) (05/02/2024 9:14 PM METROLOGY SPECIALIST) PEth 16:0/18.1 (POPEth) 59 ng/mL 05/05/2024 3:22 PM METROLOGY SPECIALIST [employer] ([facility]) Comment: PEth 16:0/18:1 (POPEth) Less than 10 ng/mL............Not detected Less than 20 ng/mL............Abstinence or light alcohol consumption 20 - 200 ng/mL................Moderate alcohol consumption Greater than 200 ng/mL........Heavy alcohol consumption or chronic alcohol use (Reference: Rufino Rae and Jory Chavis 2018 J. Forensic Sci) PEth 16:0/18.2 (PLPEth) 13 ng/mL 05/05/2024 3:22 PM METROLOGY SPECIALIST [employer] ([facility]) Comment:Reference ranges are not well established. EER Peth See Note 05/05/2024 3:22 PM METROLOGY SPECIALIST [employer] ([facility]) Comment: Authorized individuals can access the MeMed Enhanced Report with an MeMed Connect account using the following link. Your local lab can assist you in obtaining the patient report if you don't have a Connect account. [email or web address] Interpretation PEth See Comment 05/05/2024 3:22 PM METROLOGY SPECIALIST [facility] ([facility]) Comment: Phosphatidylethanol (PEth) is a group of phospholipids formed in the presence of ethanol, phospholipase D and phosphatidylcholine. PEth is known to be a direct alcohol biomarker. The predominant PEth homologues are PEth 16:0/18:1 (POPEth) and PEth 16:0/18:2 (PLPEth), which account for 37-46% and 26-28% of the total PEth homologues, respectively. PEth is incorporated into the phospholipid membrane of red blood cells and has a general half-life of 4-10 days and a window of detection of 2-4 weeks. However, the window of detection is longer in individuals who chronically or excessively consume alcohol. The limit of quantification is 10 ng/mL. Serial monitoring of PEth may be helpful in monitoring alcohol abstinence over time. PEth results should be interpreted in the context of the patient's clinical and behavioral history. Patients with advanced liver disease may have falsely elevated PEth concentrations (Ana GARNER et al 2018, Alcoholism Clinical & Experimental Research). This test was developed and its performance characteristics determined by [facility]. It has not been cleared or approved by the U.S. Food and Drug Administration. This test was performed in a CLIA-certified laboratory and is intended for clinical purposes. Performed By: [facility] [address] [place] [address] [place] Worker: Giorgio Poole MD, PhD CLIA Number: [id number] Blood BLOOD SPECIMEN / Unknown Venipuncture / Unknown 05/02/2024 9:14 PM METROLOGY SPECIALIST 05/02/2024 10:05 PM METROLOGY SPECIALIST Jun Allen MD LAB - CHEMISTRY [facility] ([facility]) [address] [place] [address], [facility] * SMOOTH MUSCLE ANTIBODY W REFLEX TITER (05/02/2024 9:14 PM METROLOGY SPECIALIST) F-Actin Antibody IgG 19 0 - 19 Units 05/05/2024 5:30 AM METROLOGY SPECIALIST [facility] ([facility]) Comment: If F-Actin (Smooth Muscle) Antibody, IgG is negative, the Smooth Muscle Antibody titer by IFA is not performed. REFERENCE INTERVAL: F-Actin (Smooth Muscle) Antibody, IgG by JOAQUIN 19 Units or less ....... Negative 20 - 30 Units .......... Weak Positive-Suggest repeat testing in two to three weeks with fresh specimen. 31 Units or greater..... Positive-Suggestive of autoimmune hepatitis type 1 or chronic active hepatitis. F-actin IgG antibodies have been shown to have increased sensitivity for autoimmune hepatitis (AIH) but lower specificity than smooth muscle antibodies (SMA). F-actin IgG antibodies can also be seen in SMA-negative disease controls (non-AIH), especially in patients with primary biliary cirrhosis and chronic hepatitis C infections. Some patients with AIH may be SMA-positive but negative for F-actin IgG. Consider testing for SMA by IFA if suspicion for AIH is strong. Performed By: [facility] [address] [place] [address] [place] Worker: Giorgio Poole MD, PhD CLIA Number: [id number] Blood BLOOD SPECIMEN / Unknown Venipuncture / Unknown 05/02/2024 9:14 PM METROLOGY SPECIALIST 05/02/2024 10:05 PM METROLOGY SPECIALIST Jun Allen MD LAB - SEROLOGY ORDER [facility]) [address] [place] [address], [facility] * (ABNORMAL) MITOCHONDRIAL ANTIBODY SCREEN (05/02/2024 9:14 PM METROLOGY SPECIALIST) Mitochondrial M2 Antibody 47.6(H) 0.0 - 24.9 Units 05/05/2024 5:31 AM METROLOGY SPECIALIST [facility] ([facility]) Comment: REFERENCE INTERVAL: Mitochondrial (M2) Antibody, IgG 20.0 Units or less ......... Negative 20.1 - 24.9 Units........... Equivocal 25.0 Units or greater....... Positive Anti-mitochondrial antibodies (AMA) are thought to be present in 90-95% of patients with primary biliary cholangitis (PBC). However, the frequency of detected antibodies may be cohort or assay dependent, as lower sensitivities have been reported. Not all PBC patients are positive for AMA; some patients may be positive for SP100 and/or GP210 antibodies. A negative result does not rule out PBC. Performed By: [place] [address] [place] Worker: Giorgio Poole MD, PhD CLIA Number: [id number] Blood BLOOD SPECIMEN / Unknown Venipuncture / Unknown 05/02/2024 9:14 PM METROLOGY SPECIALIST 05/02/2024 10:05 PM METROLOGY SPECIALIST Jun Allen MD LAB - CHEMISTRY [facility] ([facility]) [address] [place] [address] * CERULOPLASMIN (05/02/2024 9:14 PM METROLOGY SPECIALIST) Pathologist [facility] Ceruloplasmin 22 20 - 60 mg/dL 05/02/2024 10:43 PM METROLOGY SPECIALIST [facility] Blood BLOOD SPECIMEN / Unknown Venipuncture / Unknown 05/02/2024 9:14 PM METROLOGY SPECIALIST 05/02/2024 10:05 PM METROLOGY SPECIALIST Jun Allen MD LAB - CHEMISTRY [facility] [address] [address], [facility] [phone] * (ABNORMAL) B-TYPE NATRIURETIC PEPTIDE (05/02/2024 9:14 PM METROLOGY SPECIALIST) BNP 193(H) <100 pg/mL 05/02/2024 10:58 PM METROLOGY SPECIALIST [facility] Comment: A decision threshold of 100 pg/mL has been demonstrated to provide the maximal combination of sensitivity, specificity and predictive value for the diagnosis of congestive heart failure (CHF). Virtually all patients with no evidence of CHF have BNP values less than 100 pg/mL. A BNP value greater than 100 pg/mL is consistent with the diagnosis of CHF in the appropriate clinical setting. In a study of 693 patients (male and female) with diagnosed CHF, the following values were determined based on the NYHA functional classification system: NYHA Functional Class Mean Valule (pg/mL) % >100 pg/mL I 320 58.1 II 432 73.0 III 656 79.0 IV 1635 98.3 Blood BLOOD SPECIMEN / Unknown Venipuncture / Unknown 05/02/2024 9:14 PM METROLOGY SPECIALIST 05/02/2024 10:17 PM METROLOGY SPECIALIST Jun Allen MD LAB - CHEMISTRY [facility] [address] [address], [facility] [phone] * TSH (05/02/2024 9:14 PM METROLOGY SPECIALIST) TSH 2.875 0.350 - 4.940 uIU/mL 05/03/2024 2:26 AM METROLOGY SPECIALIST [facility] Blood BLOOD SPECIMEN / Unknown Venipuncture / Unknown 05/02/2024 9:14 PM METROLOGY SPECIALIST 05/02/2024 10:17 PM METROLOGY SPECIALIST Jun Allen MD LAB - CHEMISTRY [facility] [address] [address], [facility] [phone]
--- OUTSIDE RECORDS SUMMARY | 2024-07-07 14:26 | XMS_ITS | Clinical Summary ---
Author Organization [facility] Address [address] 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 This disclosure is being madepursuant to the Care Everywhere program and may not contain all information available regarding this patient. Last updated 18.[facility] Allergies No known active allergies Medications * Be aware that medications may not be up to date on this document. Alwaysverify current medications with the patient. Medication Sig Dispensed Refills Start Date End Date Status acetaminophen (Tylenol) 500 MG tablet Take 1 (one) tablet by mouth every 6 hours as needed Maximum allowable Acetaminophen amount = 4 Grams (4000 mg) / 24 hours. 06/06/2024 Active hydrOXYzine HCl (Atarax) 25 MG tablet Take 1 (one) tablet by mouth every 6 hours as needed 06/06/2024 Active albuterol HFA (Ventolin HFA) 108 (90 Base) MCG/ACT inhaler Inhale 2 (two) puffs by mouth every 4 hours as needed 06/06/2024 Active FLUoxetine (PROzac) 20 MG/5ML oral solution Take 5 mL by mouth once daily 06/07/2024 Active guaiFENesin (Robitussin) 100 MG/5ML solution Take 10 mL by mouth every 6 hours as needed for Cough 06/06/2024 Active saline nasal spray ([place]; Baby [place]) 0.65 % nasal spray [place] 1 (one) spray into each nostril every 2 hours as needed for Dry Nose 06/06/2024 Active folic acid (Folvite) 1 MG tablet Take 1 (one) tablet by mouth once daily 06/07/2024 Active lactulose (Chronulac) 10 GM/15ML solution Take 30 mL by mouth 3 times daily 06/06/2024 Active melatonin 10 MG Take 10 (ten) mg by mouth at bedtime 06/06/2024 Active magnesium oxide (Mag-Ox) 400 MG tablet Take 1 (one) tablet by mouth once daily 06/07/2024 Active rifAXIMin (Xifaxan) 550 MG tabletIndications:Hep atic Encephalopathy Take 1 (one) tablet by mouth 2 times daily 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 06/06/2024 Active nicotine (Nicoderm CQ) 14 MG/24HR patchIndications:[employer]oba accounting supervisor use disorder Apply 1 (one) patch to skin once daily 06/07/2024 Active phenol 1.4 % 1 spray by Mouth/Throat route every 1 hour as needed 06/06/2024 Active Benzocaine-Menthol (throat lozenge) Take 1 (one) lozenge by mouth every 2 hours as needed for Sore Throat 06/06/2024 Active multivitamin Adult (Centrum) solution Take 15 mL by mouth daily with breakfast 06/07/2024 Active pantoprazole EC (Protonix) 40 MG tablet Take 1 (one) tablet by mouth once daily 06/07/2024 Active thiamine (Vitamin B-1) 100 MG tablet Take 1 (one) tablet by mouth once daily 06/07/2024 Active Active Problems Problem Noted Date Diagnosed Date Hypokalemia 05/31/2024 Hypomagnesemia 05/31/2024 Acute metabolic encephalopathy 05/03/2024 Hepatic encephalopathy 05/03/2024 Acute respiratory failure with hypoxia Acute pulmonary edema 05/03/2024 CAP (community acquired pneumonia) 05/03/2024 Coagulopathy 05/03/2024 Mood disorder 05/03/2024 Acute cystitis without hematuria 05/03/2024 Severe sepsis without septic shock 05/03/2024 Decompensated cirrhosis 05/01/2024 Encounters Date Type Department Care Team Description 05/02/2024 8:30 PM SCRAPE GATHERER - 06/06/2024 3:30 PM SCRAPE GATHERER Hospital Encounter [facility] [place] [address] Jun Allen MD Ferguson, Keith T, MD Benjamin, MD Polly Jansen, MD Luzma Nolen Maya, MD Fernelius, Joshua, MD Majeed, MD Rasheed Hilton Aman, DO Rodarte, Gloria Wheeler, Internal Medicine Discharge Disposition: Intermediate or Supportive Care 05/02/2024 Travel from Last 3 Months Immunizations Name Administration Dates Next Due INFLUENZA VACCINE, TRIV. ([place] UZONE; FLULAVAL; FLUARIX; AFLURIA TRIVALENT; 6MO+), 0.5 ML (IIV3) 05/03/2024 Social History Tobacco Use Types Packs/Day Years [...] care, and heating? Not very hard 05/03/2024 [facility] [place] of Occupat ional Health - Occupational Stress [...] time in the past 12 m [facility], were you homeless or living in a long term (including now)? No 05/03/2024 Sex and Gender Information Value Date Recorded Sex Assigned at Not on file Gender Identity Female 05/03/2024 4:30 PM SCRAPE GATHERER Sexual Orientation Don't know 05/02/2024 9: 14 PM SCRAPE GATHERER Last Filed Vital Signs Vital Sign Reading Time Taken Comments Blood Pressure 126/64 06/05/2024 11:09 PM SCRAPE GATHERER Pulse 67 06/05/2024 11:09 PM SCRAPE GATHERER Temperature 36.7 C (98.1 F) 06/05/2024 2:11 PM SCRAPE GATHERER Respiratory Rate 16 06/04/2024 3:29 PM SCRAPE GATHERER Oxygen Saturation 92% 06/05/2024 11:09 PM SCRAPE GATHERER Inhaled Oxygen Concentration 40% 05/19/2024 1 2:53 PM SCRAPE GATHERER Weight 64.9 kg (143 lb) 06/03/2024 4:00 AM SCRAPE GATHERER Height 162.6 cm (5' 4) 05/02/2024 8:45 PM SCRAPE GATHERER Body Mass Index 24.55 05/02/2024 8:45 PM SCRAPE GATHERER Plan of Treatment Health Maintenance Due Date Last Done Comments COLOGUARD (AGES 45-75) - COL ON CA SCREENING 1973 COLON MONITORING 1973 COLONOSCOPY - COLON CA SCREENING 1973 CT COLONOGRAPHY - COLON CA SCREENING 1973 Colorectal Cancer Screening 1973 FIT - COLON CA SCREENING 1973 FLEX SIG - COLON CA SCREENING 1973 LIPID TESTING 1973 MAMMOGRAM 1973 PAP SMEAR 1973 HEPATITIS C SCREENING 02/11/1991 DTAP/TDAP/TD VACCINES (1 - Tdap) 02/16/1992 HEPATITIS B VACCINE (1 of 3 - 19+ 3-dose series) 02/16/1992 PNEUMOCOCCAL VACCINE 50+ (1 of 2 - PCV) 02/16/1992 ZOSTER VACCINE (1 of 2) 2023 COVID-19 VACCINE (2023-2 5 season) 2024 DEPRESSION SCREENING 05/18/2024 HIV SCREENING Completed 05/03/2024 INFLUENZA VACCINE Completed 05/03/2024 HIB VACCINE Aged Out No longer eligi ble based on patient's age to complete this topic HPV VACCINE Aged Out No longer eligi ble based on patient's age to complete this topic MENINGOCOCCAL (Group B) VACCINE Aged Out No longer eligible based on patient's age to complete this topic MENINGOCOCCAL VACCINE Aged Out No iban martin eligible based on patient's age to complete this topic Procedures Procedure Name Priority Date/Time Associated Diagnosis Comments PT-INR [facility] Routine 06/05/2024 8:08 AM SCRAPE GATHERER PHOSPHORUS BLOOD Routine 06/05/2024 8:08 AM SCRAPE GATHERER MAGNESIUM BLOOD Routine 06/05/2024 8:08 AM SCRAPE GATHERER COMPREHENSIVE METABOLIC PANEL Routine 06/05/2024 8:08 AM SCRAPE GATHERER PT-INR SLH Routine 06/03/2024 7:23 PM SCRAPE GATHERER PHOSPHORUS BLOOD Routine 06/03/2024 7:23 PM SCRAPE GATHERER MAGNESIUM BLOOD Routine 06/03/2024 7:23 PM SCRAPE GATHERER COMPREHENSIVE METABOLIC PANEL Routine 06/03/2024 7:23 PM SCRAPE GATHERER PT-INR SLH Routine 06/02/2024 7:48 PM SCRAPE GATHERER PHOSPHORUS BLOOD Routine 06/02/2024 7:48 PM SCRAPE GATHERER MAGNESIUM BLOOD Routine 06/02/2024 7:48 PM SCRAPE GATHERER COMPREHENSIVE METABOLIC PANEL Routine 06/02/2024 7:48 PM SCRAPE GATHERER PT-INR SLH Routine 06/01/2024 7:34 PM SCRAPE GATHERER PHOSPHORUS BLOOD Routine 06/01/2024 7:34 PM SCRAPE GATHERER MAGNESIUM BLOOD Routine 06/01/2024 7:34 PM SCRAPE GATHERER COMPREHENSIVE METABOLIC PANEL Routine 06/01/2024 7:34 PM SCRAPE GATHERER PT-INR SLH Routine 05/31/2024 7:04 PM SCRAPE GATHERER PHOSPHORUS BLOOD Routine 05/31/2024 7:04 PM SCRAPE GATHERER MAGNESIUM BLOOD Routine 05/31/2024 7:04 PM SCRAPE GATHERER COMPREHENSIVE METABOLIC PANEL Routine 05/31/2024 7:04 PM SCRAPE GATHERER CBC W AUTO DIFFERENTIAL Routine 05/31/19 7:04 PM SCRAPE GATHERER PT-INR SLH Routine 05/30/2024 6:06 AM SCRAPE GATHERER PHOSPHORUS BLOOD AM Draw 05/30/2024 6:06 AM SCRAPE GATHERER MAGNESIUM BLOOD AM Draw 05/30/2024 6:06 AM SCRAPE GATHERER COMPREHENSIVE METABOLIC PANEL AM Draw 05/30/2024 6:06 AM SCRAPE GATHERER CBC W AUTO DIFFERENTIAL AM Draw 05/30/19 6:06 AM SCRAPE GATHERER PT-INR SLH Routine 05/29/2024 7:15 AM SCRAPE GATHERER PHOSPHORUS BLOOD AM Draw 05/29/2024 7:15 AM SCRAPE GATHERER MAGNESIUM BLOOD AM Draw 05/29/2024 7:15 AM SCRAPE GATHERER COMPREHENSIVE METABOLIC PANEL AM Draw 05/29/2024 7:15 AM SCRAPE GATHERER CBC W AUTO DIFFERENTIAL AM Draw 05/29/19 7:15 AM SCRAPE GATHERER MAGNESIUM BLOOD AM Draw 05/28/2024 12:46 PM SCRAPE GATHERER COMPREHENSIVE METABOLIC PANEL AM Draw 05/28/2024 12:46 PM SCRAPE GATHERER PT-INR SLH Routine 05/28/2024 6:02 AM SCRAPE GATHERER PHOSPHORUS BLOOD AM Draw 05/28/2024 6:02 AM SCRAPE GATHERER CBC W AUTO DIFFERENTIAL AM Draw 05/28/19 6:02 AM SCRAPE GATHERER PT-INR SLH Routine 05/27/2024 7:03 AM SCRAPE GATHERER PHOSPHORUS BLOOD AM Draw 05/27/2024 7:03 AM SCRAPE GATHERER MAGNESIUM BLOOD AM Draw 05/27/2024 7:03 AM SCRAPE GATHERER COMPREHENSIVE METABOLIC PANEL AM Draw 05/27/2024 7:03 AM SCRAPE GATHERER CBC W AUTO DIFFERENTIAL AM Draw 05/27/19 7:03 AM SCRAPE GATHERER PT-INR SLH Routine 05/26/2024 7:04 AM SCRAPE GATHERER PHOSPHORUS BLOOD AM Draw 05/26/2024 7:04 AM SCRAPE GATHERER MAGNESIUM BLOOD AM Draw 05/26/2024 7:04 AM SCRAPE GATHERER COMPREHENSIVE METABOLIC PANEL AM Draw 05/26/2024 7:04 AM SCRAPE GATHERER CBC W AUTO DIFFERENTIAL AM Draw 05/26/19 7:04 AM SCRAPE GATHERER PT-INR SLH Routine 05/25/2024 7:00 AM SCRAPE GATHERER PHOSPHORUS BLOOD AM Draw 05/25/2024 7:00 AM SCRAPE GATHERER MAGNESIUM BLOOD AM Draw 05/25/2024 7:00 AM SCRAPE GATHERER COMPREHENSIVE METABOLIC PANEL AM Draw 05/25/2024 7:00 AM SCRAPE GATHERER CBC W AUTO DIFFERENTIAL AM Draw 05/25/19 7:00 AM SCRAPE GATHERER PT EVAL AND TREAT Routine 05/24/2024 2:0 4 PM SCRAPE GATHERER OT EVAL AND TREAT Routine 05/24/2024 2:0 4 PM SCRAPE GATHERER PT-INR SLH Routine 05/24/2024 8:39 AM SCRAPE GATHERER PHOSPHORUS BLOOD AM Draw 05/24/2024 8:39 AM SCRAPE GATHERER MAGNESIUM BLOOD AM Draw 05/24/2024 8:39 AM SCRAPE GATHERER COMPREHENSIVE METABOLIC PANEL AM Draw 05/24/2024 8:39 AM SCRAPE GATHERER CBC W AUTO DIFFERENTIAL AM Draw 05/24/19 8:39 AM SCRAPE GATHERER GLUCOSE - POINT OF CARE Routine 05/23/19 10:19 PM SCRAPE GATHERER PROCALCITONIN LEVEL Routine 05/23/2024 3 :06 PM SCRAPE GATHERER SYPHILIS ANTIBODY CASCADING REFLEX Routine 05/23/2024 3:06 PM SCRAPE GATHERER URINALYSIS REFLEX TO MICROSCOPIC NO CULTURE Routine 05/23/2024 11:05 AM SCRAPE GATHERER VITAMIN B12 Routine 05/23/2024 6:20 AM SCRAPE GATHERER PT-INR SLH Routine 05/23/2024 6:20 AM SCRAPE GATHERER PHOSPHORUS BLOOD AM Draw 05/23/2024 6:20 AM SCRAPE GATHERER MAGNESIUM BLOOD AM Draw 05/23/2024 6:20 AM SCRAPE GATHERER COMPREHENSIVE METABOLIC PANEL AM Draw 05/23/2024 6:20 AM SCRAPE GATHERER CBC W AUTO DIFFERENTIAL AM Draw 05/23/19 6:20 AM SCRAPE GATHERER PT EVAL AND TREAT Routine 05/22/2024 10: 47 AM SCRAPE GATHERER OT EVAL AND TREAT Routine 05/22/2024 10: 47 AM SCRAPE GATHERER GLUCOSE - POINT OF CARE Routine 05/22/19 6:14 AM SCRAPE GATHERER PT-INR SLH Routine 05/22/2024 5:24 AM SCRAPE GATHERER PHOSPHORUS BLOOD AM Draw 05/22/2024 5:24 AM SCRAPE GATHERER MAGNESIUM BLOOD AM Draw 05/22/2024 5:24 AM SCRAPE GATHERER COMPREHENSIVE METABOLIC PANEL AM Draw 05/22/2024 5:24 AM SCRAPE GATHERER CBC W AUTO DIFFERENTIAL AM Draw 05/22/19 5:24 AM SCRAPE GATHERER GLUCOSE - POINT OF CARE Routine 05/22/19 12:18 AM SCRAPE GATHERER GLUCOSE - POINT OF CARE Routine 05/21/19 5:03 PM SCRAPE GATHERER GLUCOSE - POINT OF CARE Routine 05/21/19 12:09 PM SCRAPE GATHERER PT-INR SLH Routine 05/21/2024 6:22 AM SCRAPE GATHERER PHOSPHORUS BLOOD AM Draw 05/21/2024 6:22 AM SCRAPE GATHERER MAGNESIUM BLOOD AM Draw 05/21/2024 6:22 AM SCRAPE GATHERER COMPREHENSIVE METABOLIC PANEL AM Draw 05/21/2024 6:22 AM SCRAPE GATHERER CBC W AUTO DIFFERENTIAL AM Draw 05/21/19 6:22 AM SCRAPE GATHERER GLUCOSE - POINT OF CARE Routine 05/21/19 12:28 AM SCRAPE GATHERER GLUCOSE - POINT OF CARE Routine 05/20/19 12:20 PM SCRAPE GATHERER PT-INR SLH Routine 05/20/2024 7:30 AM SCRAPE GATHERER CBC W AUTO DIFFERENTIAL AM Draw 05/20/19 7:30 AM SCRAPE GATHERER PHOSPHORUS BLOOD AM Draw 05/20/2024 7:29 AM SCRAPE GATHERER MAGNESIUM BLOOD AM Draw 05/20/2024 7:29 AM SCRAPE GATHERER COMPREHENSIVE METABOLIC PANEL AM Draw 05/20/2024 7:29 AM SCRAPE GATHERER GLUCOSE - POINT OF CARE Routine 05/20/19 12:23 AM SCRAPE GATHERER GLUCOSE - POINT OF CARE Routine 05/19/19 12:[address] HEAD WO CONTRAST Routine 05/19/2024 1 0:03 AM SCRAPE GATHERER Encephalopathy, unspecified type PT-INR SLH Routine 05/19/2024 7:13 AM SCRAPE GATHERER PHOSPHORUS BLOOD AM Draw 05/19/2024 7:13 AM SCRAPE GATHERER MAGNESIUM BLOOD AM Draw 05/19/2024 7:13 AM SCRAPE GATHERER COMPREHENSIVE METABOLIC PANEL AM Draw 05/19/2024 7:13 AM SCRAPE GATHERER CBC W AUTO DIFFERENTIAL AM Draw 05/19/19 7:13 AM SCRAPE GATHERER GLUCOSE - POINT OF CARE Routine 05/19/19 5:54 AM SCRAPE GATHERER GLUCOSE - POINT OF CARE Routine 05/19/19 2:03 AM SCRAPE GATHERER GLUCOSE - POINT OF CARE Routine 05/18/19 10:51 PM SCRAPE GATHERER GLUCOSE - POINT OF CARE Routine 05/18/19 5:57 PM SCRAPE GATHERER CK BLOOD Routine 05/18/2024 12:26 PM SCRAPE GATHERER HGB HCT PANEL Timed 05/18/2024 12:26 PM SCRAPE GATHERER GLUCOSE - POINT OF CARE Routine 05/18/19 11:35 AM SCRAPE GATHERER XR ABDOMEN KUB PORTABLE STAT 05/18/19 10:38 AM SCRAPE GATHERER Alteration in nutrition associated with tube feeding GLUCOSE - POINT OF CARE Routine 05/18/19 6:11 AM SCRAPE GATHERER XR CHEST 1VW PORTABLE Routine 05/18/2024 4:33 AM SCRAPE GATHERER Acute respiratory failure with hypoxia (HCC) PT-INR SLH Routine 05/18/2024 2:51 AM SCRAPE GATHERER PHOSPHORUS BLOOD AM Draw 05/18/2024 2:51 AM SCRAPE GATHERER MAGNESIUM BLOOD AM Draw 05/18/2024 2:51 AM SCRAPE GATHERER COMPREHENSIVE METABOLIC PANEL AM Draw 05/18/2024 2:51 AM SCRAPE GATHERER CBC W AUTO DIFFERENTIAL STAT 05/18/19 2:51 AM SCRAPE GATHERER GLUCOSE - POINT OF CARE Routine 05/18/19 12:08 AM SCRAPE GATHERER GLUCOSE - POINT OF CARE Routine 05/17/20 4:37 PM SCRAPE GATHERER PROCALCITONIN LEVEL Routine 05/17/2024 1 2:04 PM SCRAPE GATHERER GLUCOSE - POINT OF CARE Routine 05/17/20 11:24 AM SCRAPE GATHERER PT-INR SLH Routine 05/17/2024 8:29 AM SCRAPE GATHERER PHOSPHORUS BLOOD AM Draw 05/17/2024 8:29 AM SCRAPE GATHERER MAGNESIUM BLOOD AM Draw 05/17/2024 8:29 AM SCRAPE GATHERER COMPREHENSIVE METABOLIC PANEL AM Draw 05/17/2024 8:29 AM SCRAPE GATHERER CBC W AUTO DIFFERENTIAL AM Draw 05/17/20 8:29 AM SCRAPE GATHERER GLUCOSE - POINT OF CARE Routine 05/17/20 6:48 AM SCRAPE GATHERER EKG 12-LEAD STAT 05/16/2024 5:03 PM SCRAPE GATHERER Acute respiratory failure with hypoxia (HCC) XR CHEST 1VW PORTABLE STAT 05/16/2024 4:52 PM SCRAPE GATHERER Acute respiratory failure with hypoxia (HCC) AMMONIA STAT 05/16/2024 4:41 PM SCRAPE GATHERER COMPREHENSIVE METABOLIC PANEL STAT 05/16/2024 4:23 PM SCRAPE GATHERER BLOOD GASES ART + COOX PANEL STAT 05/16/2024 4:23 PM SCRAPE GATHERER GLUCOSE - POINT OF CARE Routine 05/16/20 4:15 PM SCRAPE GATHERER BASIC METABOLIC PANEL (CALCIUM TOTAL) Routine 05/16/2024 4:12 PM SCRAPE GATHERER GLUCOSE - POINT OF CARE Routine 05/16/20 12:31 PM SCRAPE GATHERER PTT SLH Routine 05/16/2024 6:20 AM SCRAPE GATHERER PT-INR SL Routine 05/16/2024 6:20 AM SCRAPE GATHERER PHOSPHORUS BLOOD AM Draw 05/16/2024 6:20 AM SCRAPE GATHERER MAGNESIUM BLOOD AM Draw 05/16/2024 6:20 AM SCRAPE GATHERER COMPREHENSIVE METABOLIC PANEL AM Draw 05/16/2024 6:20 AM SCRAPE GATHERER CBC W AUTO DIFFERENTIAL AM Draw 05/16/20 6:20 AM SCRAPE GATHERER GLUCOSE - POINT OF CARE Routine 05/16/20 5:10 AM SCRAPE GATHERER GLUCOSE - POINT OF CARE Routine 05/16/20 1:47 AM SCRAPE GATHERER PTT SLH Routine 05/15/2024 5:28 AM SCRAPE GATHERER PT-INR SLH Routine 05/15/2024 5:28 AM SCRAPE GATHERER PHOSPHORUS BLOOD AM Draw 05/15/2024 5:28 AM SCRAPE GATHERER MAGNESIUM BLOOD AM Draw 05/15/2024 5:28 AM SCRAPE GATHERER COMPREHENSIVE METABOLIC PANEL AM Draw 05/15/2024 5:28 AM SCRAPE GATHERER CBC W AUTO DIFFERENTIAL AM Draw 05/15/20 5:28 AM SCRAPE GATHERER GLUCOSE - POINT OF CARE Routine 05/15/20 5:15 AM SCRAPE GATHERER GLUCOSE - POINT OF CARE Routine 05/15/20 1:06 AM SCRAPE GATHERER GLUCOSE - POINT OF CARE Routine 05/14/20 11:14 PM SCRAPE GATHERER GLUCOSE - POINT OF CARE Routine 05/14/20 5:35 PM SCRAPE GATHERER FERRITIN Routine 05/14/2024 4:05 PM SCRAPE GATHERER MRSA DNA PCR STAT 05/14/2024 2:47 PM SCRAPE GATHERER BLOOD GASES PAT + COOX PANEL Routine 05/14/2024 2:46 PM SCRAPE GATHERER GLUCOSE - POINT OF CARE Routine 05/14/20 12:48 PM SCRAPE GATHERER XR CHEST 1VW PORTABLE Routine 05/14/2024 10:35 AM SCRAPE GATHERER Dyspnea, unspecified type GLUCOSE - POINT OF CARE Routine 05/14/20 7:07 AM SCRAPE GATHERER BILIRUBIN DIRECT Routine 05/14/2024 6:23 AM SCRAPE GATHERER PHOSPHORUS BLOOD AM Draw 05/14/2024 6:23 AM SCRAPE GATHERER MAGNESIUM BLOOD AM Draw 05/14/2024 6:23 AM SCRAPE GATHERER COMPREHENSIVE METABOLIC PANEL AM Draw 05/14/2024 6:23 AM SCRAPE GATHERER CBC W AUTO DIFFERENTIAL AM Draw 05/14/20 6:23 AM SCRAPE GATHERER GLUCOSE - POINT OF CARE Routine 05/13/20 6:24 PM SCRAPE GATHERER GLUCOSE - POINT OF CARE Routine 05/13/20 12:13 PM SCRAPE GATHERER MAGNESIUM BLOOD AM Draw 05/13/2024 7:54 AM SCRAPE GATHERER COMPREHENSIVE METABOLIC PANEL AM Draw 05/13/2024 7:54 AM SCRAPE GATHERER EKG 12-LEAD STAT 05/13/2024 6:43 AM SCRAPE GATHERER Decompensated cirrhosis (HCC) GLUCOSE - POINT OF CARE Routine 05/13/20 6:24 AM SCRAPE GATHERER PHOSPHORUS BLOOD AM Draw 05/13/2024 4:20 AM SCRAPE GATHERER CBC W AUTO DIFFERENTIAL AM Draw 05/13/20 4:20 AM SCRAPE GATHERER GLUCOSE - POINT OF CARE Routine 05/12/20 11:45 PM SCRAPE GATHERER GLUCOSE - POINT OF CARE Routine 05/12/20 6:20 PM SCRAPE GATHERER XR ABDOMEN KUB PORTABLE STAT 05/12/20 6:00 PM SCRAPE GATHERER Decompensated cirrhosis (HCC) XR CHEST 1VW PORTABLE STAT 05/12/2024 4:46 PM SCRAPE GATHERER Decompensated cirrhosis (HCC) XR ABDOMEN KUB PORTABLE STAT 05/12/20 4:46 PM SCRAPE GATHERER Decompensated cirrhosis (HCC) GLUCOSE - POINT OF CARE Routine 05/12/20 12:12 PM SCRAPE GATHERER GLUCOSE - POINT OF CARE Routine 05/12/20 6:06 AM SCRAPE GATHERER PHOSPHORUS BLOOD AM Draw 05/12/2024 6:02 AM SCRAPE GATHERER MAGNESIUM BLOOD AM Draw 05/12/2024 6:02 AM SCRAPE GATHERER COMPREHENSIVE METABOLIC PANEL AM Draw 05/12/2024 6:02 AM SCRAPE GATHERER CBC W AUTO DIFFERENTIAL AM Draw 05/12/20 6:02 AM SCRAPE GATHERER BLOOD GASES ART + COOX PANEL Routine 05/12/2024 6:02 AM SCRAPE GATHERER GLUCOSE - POINT OF CARE Routine 05/12/20 12:11 AM SCRAPE GATHERER PT EVAL AND TREAT Routine 05/11/2024 7:4 9 PM SCRAPE GATHERER OT EVAL AND TREAT Routine 05/11/2024 7:4 9 PM SCRAPE GATHERER CULTURE SPUTUM+GRAM STAIN Routine 2023 1:48 PM SCRAPE GATHERER PHOSPHORUS BLOOD AM Draw 05/11/2024 4:44 AM SCRAPE GATHERER MAGNESIUM BLOOD AM Draw 05/11/2024 4:44 AM SCRAPE GATHERER COMPREHENSIVE METABOLIC PANEL AM Draw 05/11/2024 4:44 AM SCRAPE GATHERER CBC W AUTO DIFFERENTIAL AM Draw 05/11/20 4:44 AM SCRAPE GATHERER GLUCOSE - POINT OF CARE Routine 05/11/20 4:43 AM SCRAPE GATHERER GLUCOSE - POINT OF CARE Routine 05/11/20 1:13 AM SCRAPE GATHERER XR CHEST 1VW PORTABLE STAT 05/10/2024 10:54 AM SCRAPE GATHERER Pleural effusion CBC W AUTO DIFFERENTIAL AM Draw 05/10/20 5:14 AM SCRAPE GATHERER GLUCOSE - POINT OF CARE Routine 05/10/20 5:13 AM SCRAPE GATHERER PHOSPHORUS BLOOD AM Draw 05/10/2024 3:21 AM SCRAPE GATHERER MAGNESIUM BLOOD AM Draw 05/10/2024 3:21 AM SCRAPE GATHERER COMPREHENSIVE METABOLIC PANEL AM Draw 05/10/2024 3:21 AM SCRAPE GATHERER GLUCOSE - POINT OF CARE Routine 05/09/20 11:34 PM SCRAPE GATHERER GLUCOSE - POINT OF CARE Routine 05/09/20 5:23 PM SCRAPE GATHERER PT EVAL AND TREAT Routine 05/09/2024 3:1 2 PM SCRAPE GATHERER OT EVAL AND TREAT Routine 05/09/2024 3:1 2 PM SCRAPE GATHERER GLUCOSE - POINT OF CARE Routine 05/09/20 1:20 PM SCRAPE GATHERER PHOSPHORUS BLOOD AM Draw 05/09/2024 5:20 AM SCRAPE GATHERER MAGNESIUM BLOOD AM Draw 05/09/2024 5:20 AM SCRAPE GATHERER COMPREHENSIVE METABOLIC PANEL AM Draw 05/09/2024 5:20 AM SCRAPE GATHERER CBC W AUTO DIFFERENTIAL AM Draw 05/09/20 5:20 AM SCRAPE GATHERER GLUCOSE - POINT OF CARE Routine 05/09/20 5:19 AM SCRAPE GATHERER GLUCOSE - POINT OF CARE Routine 05/09/20 12:00 AM SCRAPE GATHERER GLUCOSE - POINT OF CARE Routine 05/08/20 6:17 PM SCRAPE GATHERER GLUCOSE - POINT OF CARE Routine 05/08/20 12:24 PM SCRAPE GATHERER GLUCOSE - POINT OF CARE Routine 05/08/20 6:47 AM SCRAPE GATHERER PHOSPHORUS BLOOD AM Draw 05/08/2024 3:35 AM SCRAPE GATHERER MAGNESIUM BLOOD AM Draw 05/08/2024 3:35 AM SCRAPE GATHERER COMPREHENSIVE METABOLIC PANEL AM Draw 05/08/2024 3:35 AM SCRAPE GATHERER CBC W AUTO DIFFERENTIAL AM Draw 05/08/20 3:35 AM SCRAPE GATHERER GLUCOSE - POINT OF CARE Routine 05/08/20 12:08 AM SCRAPE GATHERER GLUCOSE - POINT OF CARE Routine 05/07/20 5:43 PM SCRAPE GATHERER GLUCOSE - POINT OF CARE Routine 05/07/20 12:18 PM SCRAPE GATHERER GLUCOSE - POINT OF CARE Routine 05/07/20 6:11 AM SCRAPE GATHERER PHOSPHORUS BLOOD AM Draw 05/07/2024 4:25 AM SCRAPE GATHERER MAGNESIUM BLOOD AM Draw 05/07/2024 4:25 AM SCRAPE GATHERER COMPREHENSIVE METABOLIC PANEL AM Draw 05/07/2024 4:25 AM SCRAPE GATHERER CBC W AUTO DIFFERENTIAL AM Draw 05/07/20 4:25 AM SCRAPE GATHERER GLUCOSE - POINT OF CARE Routine 05/07/20 12:18 AM SCRAPE GATHERER GLUCOSE - POINT OF CARE Routine 05/06/20 5:27 PM SCRAPE GATHERER GLUCOSE - POINT OF CARE Routine 05/06/20 11:43 AM SCRAPE GATHERER GLUCOSE - POINT OF CARE Routine 05/06/20 5:43 AM SCRAPE GATHERER GLUCOSE - POINT OF CARE Routine 05/06/20 12:01 AM SCRAPE GATHERER DIFFERENTIAL MANUAL AM Draw 05/06/2024 1 2:01 AM SCRAPE GATHERER PHOSPHORUS BLOOD AM Draw 05/06/2024 12:0 1 AM SCRAPE GATHERER MAGNESIUM BLOOD AM Draw 05/06/2024 12:01 AM SCRAPE GATHERER COMPREHENSIVE METABOLIC PANEL AM Draw 05/06/2024 12:01 AM SCRAPE GATHERER CBC W AUTO DIFFERENTIAL AM Draw 05/06/20 12:01 AM SCRAPE GATHERER GLUCOSE - POINT OF CARE Routine 05/05/20 5:54 PM SCRAPE GATHERER GLUCOSE - POINT OF CARE Routine 05/05/20 11:47 AM SCRAPE GATHERER GLUCOSE - POINT OF CARE Routine 05/05/20 5:48 AM SCRAPE GATHERER DIFFERENTIAL MANUAL AM Draw 05/05/2024 1 2:43 AM SCRAPE GATHERER TRIGLYCERIDES BLOOD AM Draw 05/05/2024 1 2:43 AM SCRAPE GATHERER PHOSPHORUS BLOOD AM Draw 05/05/2024 12:4 3 AM SCRAPE GATHERER MAGNESIUM BLOOD AM Draw 05/05/2024 12:43 AM SCRAPE GATHERER COMPREHENSIVE METABOLIC PANEL AM Draw 05/05/2024 12:43 AM SCRAPE GATHERER CBC W AUTO DIFFERENTIAL AM Draw 05/05/20 12:43 AM SCRAPE GATHERER GLUCOSE - POINT OF CARE Routine 05/04/20 11:13 PM SCRAPE GATHERER GLUCOSE - POINT OF CARE Routine 05/04/20 6:15 PM SCRAPE GATHERER US ABDOMEN LTD W COMP DOPPLER Routine 05/04/2024 4:11 PM SCRAPE GATHERER Decompensated cirrhosis (HCC) GLUCOSE - POINT OF CARE Routine 05/04/20 24 11:56 AM SCRAPE GATHERER GLUCOSE - POINT OF CARE Routine 05/04/20 24 5:40 AM SCRAPE GATHERER BLOOD GASES ART + COOX PANEL Timed 05/04/2024 1:10 AM SCRAPE GATHERER GLUCOSE - POINT OF CARE Routine 05/04/20 24 12:25 AM SCRAPE GATHERER DIFFERENTIAL MANUAL AM Draw 05/04/2024 1 2:25 AM SCRAPE GATHERER PHOSPHORUS BLOOD AM Draw 05/04/2024 12:2 5 AM SCRAPE GATHERER MAGNESIUM BLOOD AM Draw 05/04/2024 12:25 AM SCRAPE GATHERER COMPREHENSIVE METABOLIC PANEL AM Draw 05/04/2024 12:25 AM SCRAPE GATHERER CBC W AUTO DIFFERENTIAL AM Draw 05/04/20 12:25 AM SCRAPE GATHERER IRON + TRANSFERRIN PANEL Routine 024 6:45 PM SCRAPE GATHERER GLUCOSE - POINT OF CARE Routine 05/03/20 24 5:48 PM SCRAPE GATHERER CULTURE SPUTUM+GRAM STAIN Routine 2023 4:15 PM SCRAPE GATHERER URINE MICROSCOPIC ONLY REFLEX TO CULTURE Routine 05/03/2024 2:49 PM SCRAPE GATHERER URINALYSIS REFLEX MICROSCOPIC REFLEX CULTURE Routine 05/03/2024 2:49 PM SCRAPE GATHERER CULTURE URINE Routine 05/03/2024 2:49 PM SCRAPE GATHERER STREP PNEUMONIAE ANTIGEN URINE Routine 05/03/2024 2:49 PM SCRAPE GATHERER LEGIONELLA ANTIGEN URINE Routine 024 2:49 PM SCRAPE GATHERER ECHO COMPLETE W CONTRAST W BUBBLE STUDY Routine 05/03/2024 2:00 PM SCRAPE GATHERER Dyspnea, unspecified type GLUCOSE - POINT OF CARE Routine 05/03/20 24 1:05 PM SCRAPE GATHERER LACTIC ACID BLOOD Routine 05/03/2024 12: 24 PM SCRAPE GATHERER CULTURE BLOOD Timed 05/03/2024 12:24 PM SCRAPE GATHERER CULTURE BLOOD Timed 05/03/2024 12:22 PM SCRAPE GATHERER GLUCOSE - POINT OF CARE Routine 05/03/20 9:49 AM SCRAPE GATHERER BLOOD GASES ART + COOX PANEL Routine 05/03/2024 5:31 AM SCRAPE GATHERER GLUCOSE - POINT OF CARE Routine 05/03/20 5:26 AM SCRAPE GATHERER LACTIC ACID BLOOD Routine 05/03/2024 3:2 6 AM SCRAPE GATHERER GLUCOSE - POINT OF CARE Routine 05/03/20 24 1:06 AM SCRAPE GATHERER BLOOD GASES ART + COOX PANEL Routine 05/03/2024 12:58 AM SCRAPE GATHERER HEMOGLOBIN A1C Routine 05/03/2024 12:58 AM SCRAPE GATHERER PHOSPHORUS BLOOD AM Draw 05/03/2024 12:5 8 AM SCRAPE GATHERER MAGNESIUM BLOOD AM Draw 05/03/2024 12:58 AM SCRAPE GATHERER COMPREHENSIVE METABOLIC PANEL AM Draw 05/03/2024 12:58 AM SCRAPE GATHERER CBC W AUTO DIFFERENTIAL AM Draw 05/03/20 12:58 AM SCRAPE GATHERER HIV-1 HIV-2 ANTIBODY + HIV P24 AG PANEL Routine 05/03/2024 12:58 AM SCRAPE GATHERER VITAMIN B12 Routine 05/03/2024 12:58 AM SCRAPE GATHERER RESPIRATORY PANEL WITH SARS-COV-2 BY PCR (STL) Routine 05/02/2024 10:30 PM SCRAPE GATHERER CULTURE MRSA Routine 05/02/2024 10:30 PM SCRAPE GATHERER VANCOMYCIN LEVEL RANDOM STAT 05/02/20 10:21 PM SCRAPE GATHERER SYPHILIS ANTIBODY CASCADING REFLEX Timed 05/02/2024 10:21 PM SCRAPE GATHERER XR CHEST 1VW PORTABLE STAT 05/02/2024 9:29 PM SCRAPE GATHERER Decompensated cirrhosis (HCC) XR ABDOMEN KUB PORTABLE STAT 05/02/20 9:28 PM SCRAPE GATHERER Decompensated cirrhosis (HCC) TSH Routine 05/02/2024 9:14 PM SCRAPE GATHERER SMOOTH MUSCLE ANTIBODY W REFLEX TITER STAT 05/02/2024 9:14 PM SCRAPE GATHERER MITOCHONDRIAL ANTIBODY SCREEN STAT 05/02/2024 9:14 PM SCRAPE GATHERER CERULOPLASMIN STAT 05/02/2024 9:14 PM SCRAPE GATHERER AMMONIA STAT 05/02/2024 9:14 PM SCRAPE GATHERER LACTIC ACID BLOOD STAT 05/02/2024 9:1 4 PM SCRAPE GATHERER B-TYPE NATRIURETIC PEPTIDE STAT 05/02 9:14 PM SCRAPE GATHERER PHOSPHATIDYLETHANOL (PETH) Routine 05/02 9:14 PM SCRAPE GATHERER PTT [facility] STAT 05/02/2024 9:14 PM SCRAPE GATHERER PT-INR [facility] STAT 05/02/2024 9:14 PM SCRAPE GATHERER BLOOD GASES ART + COOX PANEL STAT 05/02/2024 9:14 PM SCRAPE GATHERER MAGNESIUM BLOOD STAT 05/02/2024 9:14 PM SCRAPE GATHERER PHOSPHORUS BLOOD STAT 05/02/2024 9:14 PM SCRAPE GATHERER CBC W AUTO DIFFERENTIAL STAT 05/02/20 24 9:14 PM SCRAPE GATHERER COMPREHENSIVE METABOLIC PANEL STAT 05/02/2024 9:14 PM SCRAPE GATHERER LACTIC ACID BLOOD STAT 05/02/2024 9:1 4 PM SCRAPE GATHERER from Last 3 Months Results * (ABNORMAL) PT-INR [facility] (06/05/2024 8:08 AM SCRAPE GATHERER) Only the most recent of22 resultswithin the time period is included. Pathologist [facility] PT 16.9(H) 12.1 - 14.8 Seconds 06/05/2024 9:15 AM SCRAPE GATHERER [facility] INR 1.4 See Comment 06/05/2024 9:15 AM SCRAPE GATHERER [facility] Comment:The suggested therap eutic range for standard coumadin (warfarin) therapy is an INR of 2.0-3.0. For high-risk patients (Mechanical Mitral Valve Prosthesis, etc.), the suggested prophylactic therapeutic range is an INR of 2.5-3.5. Blood BLOOD SPECIMEN / Unknown Lab Venipuncture / Unknown 06/05/2024 8:08 AM SCRAPE GATHERER 06/05/2024 8:45 AM SCRAPE GATHERER Neal Grossman MD LAB - COAGULATION OR DERABLES [facility] [address] [address], [facility] [phone] * (ABNORMAL) COMPREHENSIVE METABOLIC PANEL (06/05/2024 8:08 AM SCRAPE GATHERER) Only the most recent of35 resultswithin the time period is included. Pathologist [facility] BUN 8 7 - 26 mg/dL 06/05/2024 9:15 AM [facility] Creatinine 0.56 0.56 - 0.96 mg/dL 06/05/2024 9:15 AM [facility] Sodium 136 136 - 145 mmol/L 06/05/2024 9:15 AM [facility] Potassium 3.7 3.5 - 4.5 mmol/L 06/05/2024 9:15 AM [facility] Chloride 108(H) 98 - 107 mmol/L 06/05/2024 9:15 AM [facility] CO2 20(L) 22 - 29 mmol/L 06/05/2024 9:15 AM [facility] Glucose 132(H) 70 - 99 mg/dL 06/05/2024 9:15 AM [facility] Calcium 8.3(L) 8.4 - 10.2 mg/dL 06/05/2024 9:15 AM [facility] Protein Total 6.2 6.0 - 8.3 g/dL 06/05/2024 9:15 AM [facility] Albumin 2.5(L) 3.4 - 5.0 g/dL 06/05/2024 9:15 AM [facility] Bilirubin Total 2.3(H) 0.2 - 1.2 mg/dL 06/05/2024 9:15 AM [facility] Alkaline Phosphatase 133 40 - 150 U/L 06/05/2024 9:15 AM [facility] ALT 30 5 - 55 U/L 06/05/2024 9:15 AM [facility] AST 38(H) 5 - 34 U/L 06/05/2024 9:15 AM [facility] Anion Gap 8 6 - 16 06/05/2024 9:15 AM [facility] BUN/Creatinine Ratio 14 7 - 23 06/05/2024 9:15 AM [facility] Osmolality Calculated 282 275 - 295 mOsm/kg 06/05/2024 9:15 AM [facility] Albumin/Globulin Ratio 0.7(L) 1.1 - 2.3 06/05/2024 9:15 AM [facility] eGFR by CKD-EPI >90 >=90 mL/min/1.7 3 m2 06/05/2024 9:15 AM SCRAPE GATHERER [facility] Blood BLOOD SPECIMEN / Unknown Lab Venipuncture / Unknown 06/05/2024 8:08 AM SCRAPE GATHERER 06/05/2024 8:46 AM SCRAPE GATHERER Neal Grossman MD LAB - CHEMISTRY NADIA [facility]ENTE Performing Organization Address City/[facility]/ZIP Co de Phone Number [address] [address], [place] [phone] * PHOSPHORUS BLOOD (06/05/2024 8:08 AM SCRAPE GATHERER) Only the most recent of34 resultswithin the time period is included. Phosphorus 3.3 2.9 - 5.1 mg/dL 06/05/2024 9:15 AM SCRAPE GATHERER [facility] Blood BLOOD SPECIMEN / Unknown Lab Venipuncture / Unknown 06/05/2024 8:08 AM SCRAPE GATHERER 06/05/2024 8:46 AM SCRAPE GATHERER Neal Grossman MD LAB - CHEMISTRY NADIA [facility] Performing Organization Address [facility] Co de Phone Number [address] [address], [place] [phone] * (ABNORMAL) MAGNESIUM BLOOD (06/05/2024 8:08 AM SCRAPE GATHERER) Only the most recent of34 resultswithin the time period is included. Magnesium 1.5(L) 1.6 - 2.6 mg/dL 06/05/2024 9:15 AM SCRAPE GATHERER [facility] Blood BLOOD SPECIMEN / Unknown Lab Venipuncture / Unknown 06/05/2024 8:08 AM SCRAPE GATHERER 06/05/2024 8:46 AM SCRAPE GATHERER Neal Grossman MD LAB - CHEMISTRY NADIA [facility]ENTE Performing Organization Address City/[facility]/ZIP Co de Phone Number [address] [address], [place] [phone] * (ABNORMAL) CBC W AUTO DIFFERENTIAL (05/31/2024 7:04 PM SCRAPE GATHERER) Only the most recent of30 resultswithin the time period is included. WBC 5.5 4.0 - 10.7 x10E9/L 05/31/2024 7:45 PM [facility] RBC Count 3.51(L) 3.90 - 5.20 x10E12/L 05/31/2024 7:45 PM [facility] Hemoglobin 11.7(L) 11.9 - 15.8 g/dL 05/31/2024 7:45 PM [facility] Hematocrit 33.9(L) 34.8 - 46.1 % 05/31/2024 7:45 PM [facility] MCV 96.6 80.0 - 98.0 fL 05/31/2024 7:45 PM [facility] MCH 33.3 26.7 - 33.6 pg 05/31/2024 7:45 PM [facility] MCHC 34.5 31.7 - 36.3 g/dL 05/31/2024 7:45 PM [facility] RDW-CV 16.4(H) 11.3 - 14.8 % 05/31/2024 7:45 PM [facility] Platelet Count 149(L) 150 - 420 x10E9/L 05/31/2024 7:45 PM [facility] MPV 10.8 7.8 - 11.4 fL 05/31/2024 7:45 PM [facility] Neutrophil % 55.1 41.0 - 74.0 % 05/31/2024 7:45 PM [facility] Lymphocyte % 25.1 17.0 - 47.0 % 05/31/2024 7:45 PM [facility] Monocyte % 13.9(H) 3.0 - 11.0 % 05/31/2024 7:45 PM [facility] Eosinophil % 4.5 0.0 - 7.0 % 05/31/2024 7:45 PM [facility] Basophil % 0.7 0.0 - 1.6 % 05/31/2024 7:45 PM [facility] Immature Granulocytes % 0.7 0.0 - 1.0 % 05/31/2024 7:45 PM [facility] Neutrophil Absolute 3.04 1.60 - 7.50 x10E9/L 05/31/2024 7:45 PM [facility] Lymphocyte Absolute 1.39 1.00 - 4.40 x10E9/L 05/31/2024 7:45 PM [facility] Monocyte Absolute 0.77 0.15 - 1.00 x10E9/L 05/31/2024 7:45 PM [facility] Eosinophil Absolute 0.25 0.00 - 0.60 x10E9/L 05/31/2024 7:45 PM [facility] Basophil Absolute 0.04 0.00 - 0.13 x10E9/L 05/31/2024 7:45 PM [facility] Blood BLOOD SPECIMEN / Unknown Lab Venipuncture / Unknown 05/31/2024 7:04 PM SCRAPE GATHERER 05/31/2024 7:31 PM SCRAPE GATHERER Neal Grossman MD LAB - HEMATOLOGY ORD ERABLES Performing Organization Address City/[facility]/ZIP Co de Phone Number [address] [address], [place] [phone] * (ABNORMAL) GLUCOSE - POINT OF CARE (05/23/2024 10:19 PM SCRAPE GATHERER) Only the most recent of70 resultswithin the time period is included. [facility] Glucose WB/POC 119(H) 70 - 99 mg/dL 05/24/2024 5:39 AM [facility] Specimen Type Cap Fingerstick 2024 5:39 AM [facility] Blood BLOOD SPECIMEN / Unknown 05/23/2024 10:19 PM SCRAPE GATHERER 05/24/2024 5:39 AM SCRAPE GATHERER Mitchel De MD LAB - POINT OF CARE ORDERABLES [address] [address], [place] [phone] * PROCALCITONIN LEVEL (05/23/2024 3:06 PM SCRAPE GATHERER) Only the most recent of2 resultswithin the time period is included. PROCALCITONIN 0.03 <=0.10 ng/mL 05/23/2024 4:21 PM SCRAPE GATHERER [facility] Blood BLOOD SPECIMEN / Unknown Lab Venipuncture / Unknown 05/23/2024 3:06 PM SCRAPE GATHERER 05/23/2024 3:17 PM SCRAPE GATHERER Narrative [facility] - 05/23/2024 4:21 PM SCRAPE GATHERER The change in procalcitonin (PCT) concentration over [...] Change in Procalcitonin Calculator is available at [email or web address] If clinical picture has not improved and PCT remains high, reevaluate and consider treatment failure or other causes. Mitchel De MD LAB - CHEMISTRY NADIA [facility]ENTE [facility] Organization Address City/State/[facility] Co de Phone Number [address] [address], [facility] [phone] * SYPHILIS ANTIBODY CASCADING REFLEX (05/23/2024 3:06 PM SCRAPE GATHERER) Only the most recent of2 resultswithin the time period is included. Treponema pallidum Antibody Non-react grady Non-react grady 05/23/2024 3:59 PM SCRAPE GATHERER [facility] Comment: No Laboratory evidence of syphilis infection. Note: Circulating antibodies may be low or undetectable in early infection. If recent exposure is suspected, re-draw sample in 2-4 weeks and repeat testing. Blood BLOOD SPECIMEN / Unknown Lab Venipuncture / Unknown 05/23/2024 3:06 PM SCRAPE GATHERER 05/23/2024 3:17 PM SCRAPE GATHERER Mitchel De MD LAB - SEROLOGY ORDER GERALDO [facility] [address] [place] [address], [facility] [phone] * (ABNORMAL) URINALYSIS REFLEX TO MICROSCOPIC NO CULTURE (05/23/2024 11:05 AM SCRAPE GATHERER) Color UA [place](A) Straw, Yellow 05/23/2024 3:42 PM [facility] Clarity UA Slt Cloudy(A) Clear 05/23/2024 3:42 PM [facility] Specific [place] UA 1.024 1.005 - 1.030 05/23/2024 3:42 PM [facility] Comment: Specific gravity results confirmed by refractometer. This is a corrected result. Previous result was >=1.030 on 05/23/2024 at 1129 SCRAPE GATHERER pH UA 5.5 5.0 - 8.0 pH 05/23/2024 3:42 PM [facility] Protein UA Negative Negative 05/23/2024 3:42 PM [facility] Glucose UA Negative Negative 05/23/2024 3:42 PM [facility] Ketone UA Trace(A) Negative 05/23/2024 3:42 PM [facility] Bilirubin UA 1+(A) Negative 05/23/2024 3:42 PM [facility] Comment:Urine Bilirubin resu lt confirmed by manual Ictotest. Blood UA Negative Negative 05/23/2024 3:42 PM [facility] Nitrite UA Positive(A) Negative 05/23/2024 3:42 PM [facility] Leukocyte Esterase Negative Negative 05/23/2024 3:42 PM [facility] Urobilinogen UA Negative Negative mg/dL 05/23/2024 3:42 PM [facility] RBC UA 6-10(A) None Seen, 0-2, 3-5 /HPF 05/23/2024 3:42 PM [facility] WBC UA 11-20(A) None Seen, 0-5 /HPF 05/23/2024 3:42 PM SCRAPE GATHERER [facility] Bacteria UA 1+(A) None /HPF 05/23/2024 3:42 PM [facility] Yeast Budding UA Moderate(A) None /HPF 025 3:42 PM [facility] Squamous Epithelial Cells UA 3-5 None Seen, 0-2, 3-5 /HPF 05/23/2024 3:42 PM [facility] Mucus UA 4+ /LPF 05/23/2024 3:42 PM [facility] Hyaline Casts UA 3-5(A) None Seen, 0-2 /LPF 05/23/2024 3:42 PM [facility] Urine URINE SPECIMEN OBTAINED BY CLEAN CATCH PROCEDURE / Unknown Collection / Unknown 05/23/2024 11:05 AM SCRAPE GATHERER 05/23/2024 11:08 AM SCRAPE GATHERER Narrative [facility] - 05/23/2024 3:42 PM SCRAPE GATHERER Mitchel De MD LAB - URINALYSIS ORD ERABLES Performing Organization Address City/[facility]/ZIP Co de Phone Number [address] [address], [place] [phone] * (ABNORMAL) VITAMIN B12 (05/23/2024 6:20 AM SCRAPE GATHERER) Only the most recent of2 resultswithin the time period is included. Vitamin B12 >2,000(H) 213 - 816 pg/mL 05/23/2024 10:40 AM SCRAPE GATHERER [facility] Blood BLOOD SPECIMEN / Unknown Venipuncture / Unknown 05/23/2024 6:20 AM SCRAPE GATHERER 05/23/2024 6:45 AM SCRAPE GATHERER Mitchel De MD LAB - CHEMISTRY ORDE RABLES [address] [address], [place] [phone] * CT Head Wo Contrast (05/19/2024 10:03 AM SCRAPE GATHERER) Anatomical Region Laterality Modality Head Computed Tomogra phy 05/19/2024 10:2 7 AM SCRAPE GATHERER Impressions 05/19/2024 10:31 AM SCRAPE GATHERER IMPRESSION: 1. No acute intracranial process. 2. Chronic small vessel ischemic disease of the brain with cerebral volume loss. > Interpreting Provider: Albert Xiong MD on 05/19/2024 10:31 AM Narrative 05/19/2024 10:31 AM SCRAPE GATHERER PROCEDURE: CT HEAD WO CONTRAST, DATE/TIME OF EXAM: 05/19/2024 10:05 AM, LOCATION [facility] INDICATION: G93.40: Encephalopathy, unspecified type ADDITIONAL [...] DATE/TIME OF EXAM: 05/19/2024 10:05 AM, LOCATION [facility] INDICATION: G93.40: Encephalopathy, unspecified type ADDITIONAL [...] (ABNORMAL) HGB HCT PANEL (05/18/2024 12:26 PM SCRAPE GATHERER) Hemoglobin 16.6(H) 11.9 - 15.8 g/dL 05/18/2024 12:52 PM SCRAPE GATHERER [facility] Hematocrit 50.3(H) 34.8 - 46.1 % 05/18/2024 12:52 PM SCRAPE GATHERER [facility] Blood BLOOD SPECIMEN / Unknown Lab Venipuncture / Unknown 05/18/2024 12:26 PM SCRAPE GATHERER 05/18/2024 12:48 PM SCRAPE GATHERER Mitchel De MD LAB - HEMATOLOGY ORD ERABLES [facility] [address] [place] [address], [facility] [phone] * CK BLOOD (05/18/2024 12:26 PM SCRAPE GATHERER) CK Total 30 30 - 200 U/L 05/18/2024 1:21 PM SCRAPE GATHERER [facility] Blood BLOOD SPECIMEN / Unknown Lab Venipuncture / Unknown 05/18/2024 12:26 PM SCRAPE GATHERER 05/18/2024 12:53 PM SCRAPE GATHERER Mitchel De MD LAB - CHEMISTRY ORDChristos VALENTE [facility] [address] [place] [address], [facility] [phone] * XR Abdomen Kub Portable (05/18/2024 10:38 AM SCRAPE GATHERER) Only the most recent of4 resultswithin the time period is included. Anatomical Region Laterality Modality Abdomen Digital Radiogra phy 05/18/2024 11:5 5 AM SCRAPE GATHERER Narrative 05/18/2024 5:41 PM SCRAPE GATHERER PROCEDURE: XR ABDOMEN KUB PORTABLE DATE/TIME OF EXAM: 05/18/2024 10:39 AM Indication: R63.8: Alteration in nutrition associated with tube feeding Additional History: COMPARISON: Abdominal x-ray 05/12/2024 FINDINGS/IMPRESSION: Weighted tip feeding tube courses below the diaphragm and terminates in the gastric fundus, mildly retracted compared to prior abdominal x-ray. Report dictated by Milad Perales MD (residential door installer). Mckenna Aly MD have personally reviewed and [...] to prior abdominal x-ray. Report dictated by Miald Perales MD (residential door installer). Mckenna Aly MD have personally reviewed and interpreted this examination/study. > Interpreting Provider: Mckenna Alva MD on 05/18/2024 5:41 PM Mitchel De MD DIAGNOSTIC IMAGING O RDERABLES * XR Chest 1Vw Portable (05/18/2024 4:33 AM SCRAPE GATHERER) Only the most recent of6 resultswithin the time period is included. Anatomical Region Laterality Modality Chest Digital Radiogra phy 05/18/2024 1:20 PM SCRAPE GATHERER Narrative 05/19/2024 12:31 AM SCRAPE GATHERER PROCEDURE: XR CHEST 1VW PORTABLE, DATE/TIME OF EXAM: 05/18/2024 4:33 AM, LOCATION [facility] INDICATION: J96.01: Acute respiratory failure with [...] cardiomediastinal silhouette is normal. > Dictated by ROHITH Adan (residential door installer). Celestine Aly MD have personally reviewed and interpreted this examination/study. > Interpreting Provider: Celestine Ro MD on 05/19/2024 12:31 AM Procedure Note Celestine Ro MD - 05/19/2024 PROCEDURE: XR CHEST 1VW PORTABLE, DATE/TIME OF EXAM: 05/18/2024 4:33 AM, LOCATION [facility] INDICATION: J96.01: Acute respiratory failure with [...] cardiomediastinal silhouette is normal. > Dictated by ROHITH Adan (residential door installer). Celestine Aly MD have personally reviewed and interpreted this examination/study. > Interpreting Provider: Celestine oR MD on 05/19/2024 12:31 AM Mitchel De MD DIAGNOSTIC IMAGING O RDERABLES * EKG 12-LEAD (05/16/2024 5:03 PM SCRAPE GATHERER) Only the most recent of2 resultswithin the time period is included. Pathologist [facility] Ventricular Rate 92 BPM [facility] Atrial Rate 92 BPM [facility] P-R Interval 148 ms [facility] QRS Duration ms 78 ms [facility] Q-T Interval ms 392 ms [facility] QTC Calculation (Bezet) 484 ms [facility] Calculated P [place] 46 degrees [facility] Calculated R [place] 30 degrees [facility] Calculated T [place] 12 degrees [facility] Interpretation EKG NORMAL SINUS RHYTHM PROLONGED QT ABNORMAL ECG WHEN COMPARED WITH ECG OF 13-MAY-2024 06:43, NO SIGNIFICANT CHANGE WAS FOUND Confirmed by EMIL RIVERA MD ([id number]) on 05/18/2024 2:55:51 PM [facility] 05/16/2024 5:03 PM SCRAPE GATHERER 05/18/2024 2:55 PM SCRAPE GATHERER Nuha Segal MD ECG ORDERABLES Performing Organization Address City/[facility]/ZIP Co de Phone Number [facility] * AMMONIA (05/16/2024 4:41 PM SCRAPE GATHERER) Only the most recent of2 resultswithin the time period is included. [facility] Ammonia 49 <=72 umol/L 05/16/2024 5:02 PM SCRAPE GATHERER [facility] Blood BLOOD SPECIMEN / Unknown Venipuncture / Unknown 05/16/2024 4:41 PM SCRAPE GATHERER 05/16/2024 5:02 PM SCRAPE GATHERER Nuha Segal MD LAB - CHEMISTRY ORDChristos VALENTE [address] [address], [facility] [phone] * (ABNORMAL) BLOOD GASES ART + COOX PANEL (05/16/2024 4:23 PM SCRAPE GATHERER) Only the most recent of6 resultswithin the time period is included. Pathologist [facility] pH Arterial 7.43 7.35 - 7.45 pH 05/16/2024 4:38 PM [facility] pO2 Arterial 133(H) 80 - 100 mmHg 05/16/2024 4:38 PM [facility] pCO2 Arterial 34(L) 35 - 45 mmHg 4:38 PM [facility] HCO3 Arterial 22.6 20.0 - 30.0 mmol/L 05/16/2024 4:38 PM [facility] BE Arterial -0.9 -2.0 - 2.0 mmol/L 05/16/2024 4:38 PM [facility] Oxyhemoglobin Arterial 96.9 % 05/16/2024 4:38 PM [facility] Dexoyhemoglobin (HHB) % <1.0 % 05/16/2024 4:38 PM [facility] Methemoglobin <0.8 0.0 - 2.0 % 05/16/2024 4:38 PM [facility] Carboxyhemoglobin 2.1(H) 0.0 - 2.0 % 2023 4:38 PM [facility] O2 Content Arterial 23.9 Interpret within clinical context ml/dL 05/16/2024 4:38 PM [facility] Hemoglobin by COOX 17.4(H) 12.0 - 15.6 g/dL 05/16/2024 4:38 PM [facility] O2 Saturation Arterial 100 90 - 100 % 05/16/2024 4:38 PM [facility] FI O2 Arterial 100.0 % 05/16/2024 4:38 PM [facility] Blood, arterial ARTERIAL BLOOD SPECIMEN / Unknown Arterial Puncture / Unknown 05/16/2024 4:23 PM SCRAPE GATHERER 05/16/2024 4:28 PM [facility] - 05/16/2024 4:38 PM [facility] Carboxyhemoglobin Normal Concentration: Non-smokers: 0-2%; Smokers: 0-9%; Toxic: >20% Nuha Segal MD LAB - BLOOD GASES OR DERABLES [facility] [address] [place] [address], [facility] [phone] * (ABNORMAL) BASIC METABOLIC PANEL (CALCIUM TOTAL) (05/16/2024 4:12 PM SCRAPE GATHERER) Pathologist [facility] BUN 21 7 - 26 mg/dL 05/16/2024 5:16 PM [facility] Creatinine 0.70 0.56 - 0.96 mg/dL 05/16/2024 5:16 PM [facility] Sodium 148(H) 136 - 145 mmol/L 05/16/2024 5:16 PM [facility] Potassium 3.8 3.5 - 4.5 mmol/L 05/16/2024 5:16 PM [facility] Chloride 118(H) 98 - 107 mmol/L 05/16/2024 5:16 PM [facility] CO2 20(L) 22 - 29 mmol/L 05/16/2024 5:16 PM [facility] Glucose 148(H) 70 - 99 mg/dL 05/16/2024 5:16 PM [facility] Calcium 9.9 8.4 - 10.2 mg/dL 05/16/2024 5:16 PM [facility] Anion Gap 10 6 - 16 05/16/2024 5:16 PM [facility] BUN/Creatinine Ratio 30(H) 7 - 23 05/16/2024 5:16 PM [facility] Osmolality Calculated 312(H) 275 - 295 mOsm/kg 05/16/2024 5:16 PM [facility] eGFR by CKD-EPI >90 >=90 mL/min/1.7 3 m2 05/16/2024 5:16 PM [facility] Blood BLOOD SPECIMEN / Unknown Lab Venipuncture / Unknown 05/16/2024 4:12 PM SCRAPE GATHERER 05/16/2024 4:30 PM SCRAPE GATHERER Nuha Segal MD LAB - CHEMISTRY NADIA VALENTE [facility] [address] [place] [address], [facility] [phone] * PTT [facility] (05/16/2024 6:20 AM SCRAPE GATHERER) Only the most recent of3 resultswithin the time period is included. Pathologist [facility] APTT 34.8 23.0 - 38.4 Seconds 05/16/2024 6:59 AM SCRAPE GATHERER [facility] Comment:Suggested therapeuti c range for full dose I.V. unfractionated heparin therapy for venous thromboembolism is 71 to 109 seconds. Blood BLOOD SPECIMEN / Unknown Lab Venipuncture / Unknown 05/16/2024 6:20 AM SCRAPE GATHERER 05/16/2024 6:34 AM SCRAPE GATHERER Hiren Matias MD LAB - COAGULATION OR DERABLES [facility] [address] [place] [address], [place] [phone] * FERRITIN (05/14/2024 4:05 PM SCRAPE GATHERER) [facility] Ferritin 534 ng/mL 05/14/2024 5:13 PM SCRAPE GATHERER [facility] Blood BLOOD SPECIMEN / Unknown Lab Venipuncture / Unknown 05/14/2024 4:05 PM SCRAPE GATHERER 05/14/2024 4:11 PM SCRAPE GATHERER Hiren Matias MD LAB - CHEMISTRY ORDE RABLES Performing Organization Address [facility]/ZIP Co de Phone Number [address] [address], [place] [phone] * MRSA DNA PCR (05/14/2024 2:47 PM SCRAPE GATHERER) [facility] MRSA DNA by PCR Not detected Not detected 05/14/2024 7:24 PM SCRAPE GATHERER [facility] MICROBIOLOGY Microbiology SPECIMEN FROM NASAL FOSSAE / Unknown Collection / Unknown 05/14/2024 2:47 PM SCRAPE GATHERER 05/14/2024 2:51 PM SCRAPE GATHERER Narrative [facility] MICROBIOLOGY - 05/14/2024 7:24 PM SCRAPE GATHERER Methicillin-resistant Staphylococcus aureus (MRSA) DNA is not detected (presumed not colonized with MRSA). Jun Allen MD LAB - MICROBIOLOGY O RDERABLES [facility] MICROBIOLOGY [address] [place] [address], [place] [phone] * (ABNORMAL) BLOOD GASES PAT + COOX PANEL (05/14/2024 2:46 PM SCRAPE GATHERER) pH Venous 7.51(H) 7.32 - 7.42 pH 05/14/2024 2:56 PM [facility] pO2 Venous 53(H) 35 - 40 mmHg 05/14/2024 2:56 PM [facility] pCO2 Venous 29(L) 40 - 50 mmHg 05/14/2024 2:56 PM [facility] HCO3 Venous 23.1 20 - 30 mmol/L 05/14/2024 2:56 PM [facility] Base Excess Venous 1.2 -2.0 - 2.0 mmol/L 05/14/2024 2:56 PM [facility] Oxyhemoglobin Venous 81.8 % 04/18 2:56 PM [facility] Deoxyhemoglobin (HHB) Venous % 15.4 % 05/14/2024 2:56 PM [facility] Methemoglobin 1.1 0.0 - 2.0 % 05/14/2024 2:56 PM [facility] Carboxyhemoglobin 1.7 0.0 - 2.0 % 2023 2:56 PM [facility] O2 Content Venous 17.2 Interpret within clinical context ml/dL 05/14/2024 2:56 PM [facility] Hemoglobin by COOX 15.0 g/dL 2023 2:56 PM [facility] O2 Saturation Venous 84 >=70 % 04/18 2:56 PM [facility] FI O2 Mixed Venous 36.0 % 2023 2:56 PM [facility] Blood BLOOD SPECIMEN / Unknown Venipuncture / Unknown 05/14/2024 2:46 PM SCRAPE GATHERER 05/14/2024 2:51 PM [facility] - 05/14/2024 2:56 PM [facility] Carboxyhemoglobin Normal Concentration: Non-smokers: 0-2%; Smokers: 0-9%; Toxic: >20% Nuha Segal MD LAB - BLOOD GASES OR DERABLES [facility] [address] [place] [phone], [facility] [phone] * (ABNORMAL) BILIRUBIN DIRECT (05/14/2024 6:23 AM SCRAPE GATHERER) Bilirubin Conjugated 1.4(H) 0.1 - 0.5 mg/dL 05/14/2024 7:16 AM SCRAPE GATHERER [facility] Blood BLOOD SPECIMEN / Unknown Lab Venipuncture / Unknown 05/14/2024 6:23 AM SCRAPE GATHERER 05/14/2024 6:42 AM SCRAPE GATHERER Hiren Matias MD LAB - CHEMISTRY ORDChristos VALENTE Performing Organization Address [facility] Co de Phone Number [address] [address], [facility] [phone] * CULTURE SPUTUM+GRAM STAIN (05/11/2024 1:48 PM SCRAPE GATHERER) Only the most recent of2 resultswithin the time period is included. Pathologist [facility] Culture Rare normal oropharyngeal catarino SAURABH 05/13/2024 10:26 AM SCRAPE GATHERER [facility] MICROBIOLOGY Gram Stain Light Polymorphonuclear cells 05/13/2024 10:26 AM [facility] MICROBIOLOGY Gram Stain No organisms seen 024 10:26 AM [facility] MICROBIOLOGY Microbiology SPUTUM / Unknown Collection / Unknown 05/11/2024 1:48 PM SCRAPE GATHERER 05/11/2024 2:03 PM SCRAPE GATHERER Hiren Matias MD LAB - MICROBIOLOGY O RDERABLES Performing Organization Address City/[facility]/ZIP Co de Phone Number [facility] MICROBIOLOGY [address] [place] [address], [facility] [phone] * (ABNORMAL) DIFFERENTIAL MANUAL (05/06/2024 12:01 AM SCRAPE GATHERER) Only the most recent of3 resultswithin the time period is included. Pathologist [facility] Neutrophil % 60 41 - 74 % 05/06/2024 2:01 AM [facility] Lymphocyte % 18 17 - 47 % 05/06/2024 2:01 AM SCRAPE GATHERER [facility] Monocyte % 18(H) 3 - 11 % 05/06/2024 2:01 AM [facility] Eosinophil % 3 0 - 7 % 05/06/2024 2:01 AM [facility] Basophil % 1 0 - 2 % 05/06/2024 2:01 AM [facility] Neutrophil Absolute 4.86 1.60 - 7.50 x10E9/L 05/06/2024 2:01 AM [facility] Lymphocyte Absolute 1.46 1.00 - 4.40 x10E9/L 05/06/2024 2:01 AM [facility] Monocyte Absolute 1.46(H) 0.15 - 1.00 x10E9/L 05/06/2024 2:01 AM [facility] Eosinophil Absolute 0.24 0.00 - 0.60 x10E9/L 05/06/2024 2:01 AM [facility] Basophil Absolute 0.08 0.00 - 0.13 x10E9/L 05/06/2024 2:01 AM [facility] RBC Morphology REVIEWED 05/06/2024 2:01 AM [facility] Macrocytosis MODERATE(A) (none) 05/06/2024 2:01 AM [facility] Polychromatic Cells MODERATE(A) (none) 05/06/2024 2:01 AM [facility] Schistocytes FEW(A) (none) 05/06/2024 2:01 AM [facility] Blood BLOOD SPECIMEN / Unknown Venipuncture / Unknown 05/06/2024 12:01 AM SCRAPE GATHERER 05/06/2024 12:39 AM [facility] Jun Allen MD LAB - HEMATOLOGY ORD ERABLES [facility] [address] [place] [phone], [facility] [phone] * TRIGLYCERIDES BLOOD (05/05/2024 12:43 AM [facility]) Triglycerides 102 <150 mg/dL 05/05/2024 1:20 AM [facility] Comment: ATP III Classification of Triglycerides: <150 mg/dL: Normal 150 - 199 mg/dL: Borderline High 200 - 400 mg/dL: High >500 mg/dL: Very High Blood BLOOD SPECIMEN / Unknown Venipuncture / Unknown 05/05/2024 12:43 AM SCRAPE GATHERER 05/05/2024 12:52 AM SCRAPE GATHERER Jun Allen MD LAB - CHEMISTRY NADIA VALENTE [facility] Organization Address City/State/ZIP Co de Phone Number [facility] [place] [place] [address], [facility] [phone] * US Abdomen Ltd W Comp Doppler (05/04/2024 4:11 PM SCRAPE GATHERER) Anatomical Region Laterality Modality Abdomen Ultrasound 05/04/2024 3:57 PM SCRAPE GATHERER Impressions 05/04/2024 5:16 PM SCRAPE GATHERER IMPRESSION: 1.Hepatic cirrhosis without discrete hepatic lesion. [...] > Dictated by Calvin Schroeder MD (residential door installer). I, Darryl Ayala MD have personally reviewed and interpreted this examination/study. > Interpreting Provider: Darryl Ayala MD on 05/04/2024 5:16 PM Narrative 05/04/2024 5:16 PM SCRAPE GATHERER PROCEDURE: US ABDOMEN LTD W COMP DOPPLER, DATE/TIME OF EXAM: 05/04/2024 2:45 PM, LOCATION [facility] INDICATION: K72.90: Decompensated cirrhosis (HCC) K74.60: [...] DOPPLER, DATE/TIME OF EXAM:05/04/2024 2:45 PM, LOCATION [facility] INDICATION: K72.90: Decompensated cirrhosis (HCC) K74.60: [...] > Dictated by Calvin Schroeder MD (residential door installer). I, Darryl Ayala MD have personally reviewed and interpreted this examination/study. > Interpreting Provider: Darryl Ayala MD on 05/04/2024 5:16 PM Osmani Myers MD US ORDERABLES * (ABNORMAL) IRON + TRANSFERRIN PANEL (05/03/2024 6:45 PM SCRAPE GATHERER) Pathologist [facility] Iron 292 ug/dL 05/03/2024 11:55 PM SCRAPE GATHERER [facility] Transferrin 97(L) 174 - 382 mg/dL 05/03/2024 11:55 PM SCRAPE GATHERER [facility] Transferrin Saturation % 100(H) 16 - 50 % 05/03/2024 11:55 PM SCRAPE GATHERER [facility] TIBC Calculated 121 ug/dL 11:55 PM [facility] Blood BLOOD SPECIMEN / Unknown Venipuncture / Unknown 05/03/2024 6:45 PM SCRAPE GATHERER 05/03/2024 6:47 PM SCRAPE GATHERER Osmani Myers MD LAB - CHEMISTRY NADIA VALENTE [facility] Organization Address City/State/ZIP Co de Phone Number [facility] [address] [place] [address], [facility] [phone] * (ABNORMAL) URINE MICROSCOPIC ONLY REFLEX TO CULTURE (05/03/2024 2:49 PM SCRAPE GATHERER) Pathologist [facility] Reflex Status Culture to follow 05/03/2024 3:26 PM SCRAPE GATHERER [facility] RBC UA 51-100(A) None Seen, 0-2, 3-5 /HPF 05/03/2024 3:26 PM SCRAPE GATHERER [facility] WBC UA 21-50(A) None Seen, 0-5 /HPF 05/03/2024 3:26 PM [facility] Squamous Epithelial Cells UA 0-2 None Seen, 0-2, 3-5 /HPF 05/03/2024 3:26 PM [facility] Mucus UA 2+ /LPF 05/03/2024 3:26 PM [facility] Hyaline Casts UA 11-20(A) None Seen, 0-2 /LPF 05/03/2024 3:26 PM [facility] Urine URINE SPECIMEN OBTAINED BY CLEAN CATCH PROCEDURE / Unknown Collection / Unknown 05/03/2024 2:49 PM SCRAPE GATHERER 05/03/2024 2:54 PM SCRAPE GATHERER [facility] - 05/03/2024 3:26 PM SCRAPE GATHERER Jun Allen MD LAB - URINALYSIS ORD ERABLES [facility] [address] [place] [phone], [facility] [phone] * (ABNORMAL) URINALYSIS REFLEX MICROSCOPIC REFLEX CULTURE (05/03/2024 2:49 PM SCRAPE GATHERER) Color UA Yellow Straw, Yellow 05/03/2024 3:23 PM [facility] Clarity UA Slt Cloudy(A) Clear 05/03/2024 3:23 PM [facility] Specific [place] UA 1.011 1.005 - 1.030 05/03/2024 3:23 PM [facility] pH UA 5.0 5.0 - 8.0 pH 05/03/2024 3:23 PM [facility] Protein UA Negative Negative 05/03/2024 3:23 PM [facility] Glucose UA Negative Negative 05/03/2024 3:23 PM [facility] Ketone UA Negative Negative 05/03/2024 3:23 PM [facility] Bilirubin UA Negative Negative 05/03/2024 3:23 PM [facility] Blood UA 1+(A) Negative 05/03/2024 3:23 PM [facility] Nitrite UA Negative Negative 05/03/2024 3:23 PM [facility] Leukocyte Esterase Negative Negative 05/03/2024 3:23 PM [facility] Urobilinogen UA Negative Negative mg/dL 05/03/2024 3:23 PM SCRAPE GATHERER [facility] Urine URINE SPECIMEN OBTAINED BY CLEAN CATCH PROCEDURE / Unknown Collection / Unknown 05/03/2024 2:49 PM SCRAPE GATHERER 05/03/2024 2:54 PM SCRAPE GATHERER Narrative [facility] - 05/03/2024 3:23 PM SCRAPE GATHERER Jun Allen MD LAB - URINALYSIS ORD ERABLES Performing Organization Address [facility] Co de Phone Number [facility] [address] [place] [address], [facility] [phone] * STREP PNEUMONIAE ANTIGEN URINE (05/03/2024 2:49 PM SCRAPE GATHERER) Streptococcus pneumoniae Antigen Urine Negative Negative 05/04/2024 8:42 AM SCRAPE GATHERER [facility] MICROBIOLOGY Urine URINE / Unknown Collection / Unknown 05/03/2024 2:49 PM SCRAPE GATHERER 05/03/2024 2:54 PM SCRAPE GATHERER [facility] MICROBIOLOGY - 05/04/2024 8:42 AM SCRAPE GATHERER Patients who have received the Streptococcus pneumoniae [...] - MICROBIOL OGY ORDERABLES Performing Organization Address City/[facility]/ZIP Co de Phone Number [facility] MICROBIOLOGY [address] [place] [address], [facility] [phone] * LEGIONELLA ANTIGEN URINE (05/03/2024 2:49 PM SCRAPE GATHERER) Legionella Antigen Urine Negative Negative 05/04/2024 8:13 AM SCRAPE GATHERER [facility] MICROBIOLOGY Urine URINE / Unknown Collection / Unknown 05/03/2024 2:49 PM SCRAPE GATHERER 05/03/2024 2:54 PM SCRAPE GATHERER [facility] MICROBIOLOGY - 05/04/2024 8:13 AM SCRAPE GATHERER This assay detects Legionella pneumophila serogroup one (1) antigen. A negative test result does not rule out the possibility of Legionella infection due to other serogroups or species of Legionella. A positive result may indicate a recent or remote infection with serogroup 1. Eder Bravo MD LAB - MICROBIOL OGY ORDERABLES Performing Organization Address [facility]/ZIP Co de Phone Number [facility] MICROBIOLOGY [address] [place] [address], [facility] [phone] * CULTURE URINE (05/03/2024 2:49 PM SCRAPE GATHERER) Pathologist [facility] Culture Urine No growth (<100 CFU/mL) SAURABH 05/05/2024 12:31 AM SCRAPE GATHERER [facility] MICROBIOLOGY Urine URINE SPECIMEN OBTAINED BY CLEAN CATCH PROCEDURE / Unknown Collection / Unknown 05/03/2024 2:49 PM SCRAPE GATHERER 05/03/2024 3:26 PM SCRAPE GATHERER Jun Allen MD LAB - MICROBIOLOGY O RDERABLES Performing Organization Address [facility] Co de Phone Number [facility] MICROBIOLOGY [address] [place] [address], [facility] [phone] * ECHO COMPLETE W CONTRAST W BUBBLE STUDY (05/03/2024 2:00 PM SCRAPE GATHERER) Pathologist [facility] RVOT diam Doppler 2.642 cm SSM CV [...] PACS LVOT VTI 29.583 cm S[facility] CV [facility] I PACS RV-gallego basal diam 3.253 cm [facility] RVIDd 3.1 cm [facility] CV [facility] I PACS RVOT pk andrew 94.211 cm/s SSM CV F UJI PACS RVOT VTI 20.129 cm SSM CV [facility] I PACS LA size 4.79 cm SSM CV [facility] I PACS LA vol BP 86.983 ml [facility] CV [facility] I PACS RA area 16.209 cm [facility] AV mn grad 7.512 mmHg SSM CV FU JI PACS AV pk andrew 192.865 cm/s SSM CV [facility] I PACS AV VTI 36.105 cm SSM CV [facility] I PACS MV A pk andrew 90.525 cm/s SSM CV F UJI PACS MV E pk andrew 107.95 cm/s SSM CV F UJI PACS MV E' lateral andrew 13.245 cm/s [facility] MV lat a' andrew 10.849 cm/s [facility] MV lat S' andrew 12.656 cm/s [facility] RV-gallego mid diam 3.004 cm [facility] MV mn grad 1.812 mmHg SSM CV FU JI PACS MV VTI 34.837 cm [facility] CV [facility] I PACS PV pk andrew 129.553 cm/s S[facility] CV [facility] I PACS PV VTI 26.389 cm [facility] CV [facility] I PACS Ascending aorta 2.869 cm [facility] IVC Diam Expiration 1.857 cm [facility] Anatomical Region Laterality Modality Ultrasound 05/03/2024 1:20 PM SCRAPE GATHERER Narrative 05/03/2024 9:47 PM SCRAPE GATHERER Summary * Findings consistent with elevated venous [...] 1:20 PM Patient Status: I/P Study Site: [facility] Primary Location: [facility] Info Technical Quality: Fair Exam Type: ECHO [...] Provider: Jun Allen Attending Physician: Jun Allen Public Area Attendant: Willard Wallis Left Ventricle The left ventricle [...] 1:20 PM Patient Status: I/P Study Site: [facility] Primary Location: [facility] Info Technical Quality: Fair Exam Type: ECHO [...] Provider: Jun Allen Attending Physician: Jun Allen Public Area Attendant: Willard Wallis Left Ventricle The left ventricle [...] CUPID * CULTURE BLOOD (05/03/2024 12:24 PM SCRAPE GATHERER) Only the most recent of2 resultswithin the time period is included. Pathologist [facility] Culture No growth day 5 SAURABH 05/08/2024 4:31 PM SCRAPE GATHERER [facility] MICROBIOLOGY Blood PERIPHERAL BLOOD / Unknown Venipuncture / Unknown 05/03/2024 12:24 PM SCRAPE GATHERER 05/03/2024 1:00 PM SCRAPE GATHERER Jun Allen MD LAB - MICROBIOLOGY O RDERABLES Performing Organization Address City/[facility]/ZIP Co de Phone Number [facility] MICROBIOLOGY [address] [place] [address], [facility] [phone] * LACTIC ACID BLOOD (05/03/2024 12:24 PM SCRAPE GATHERER) Only the most recent of4 resultswithin the time period is included. Pathologist [facility] Lactic Acid-Stat 1.6 <=2.0 mmol/L 05/03/2024 1:03 PM SCRAPE GATHERER [facility] Blood BLOOD SPECIMEN / Unknown Venipuncture / Unknown 05/03/2024 12:24 PM SCRAPE GATHERER 05/03/2024 12:32 PM SCRAPE GATHERER Jun Allen MD LAB - CHEMISTRY ORDE AMBROSIO Performing Organization Address City/[facility]/ZIP Co de Phone Number [address] [address], [place] [phone] * HIV-1 HIV-2 ANTIBODY + HIV P24 AG PANEL (05/03/2024 12:58 AM SCRAPE GATHERER) Pathologist [facility] HIV Antigen/Antibod y 1 & 2 Non-reacti ve Non-react grady 05/03/2024 2:15 AM SCRAPE GATHERER [facility] Comment:No Laboratory eviden ce of HIV infection. Blood BLOOD SPECIMEN / Unknown Venipuncture / Unknown 05/03/2024 12:58 AM SCRAPE GATHERER 05/03/2024 1:26 AM SCRAPE GATHERER Jun Allen MD LAB - CHEMISTRY NADIA VALENTE Performing Organization Address City/[facility]/ZIP Co de Phone Number [address] [address], [facility] [phone] * HEMOGLOBIN A1C (05/03/2024 12:58 AM SCRAPE GATHERER) [facility] Hemoglobin A1c 5.0 <=5.6 % 05/03/2024 8:56 AM SCRAPE GATHERER [facility] Estimated Average Glucose 97 mg/dL 05/03/2024 8:56 AM [facility] Comment: HbA1c Interpretation: Normal : < 5.7% Pre-diabetes: 5.7-6.4% Diabetes: Equal to or greater than 6.5% Test results diagnostic of diabetes should be repeated for confirmation. Treatment target values recommended by ADA and other clinical organizations should be used to evaluate metabolic control in patients. Reference: [place] [employer], Standards of Care in Diabetes -2020 In patients 70 years and older consider HbA1c target range of 7.0-7.5% (Reference: Jaime Adair et al. JAMDA. 2012) The Sebia assay for the measurement of HbA1c is a National Glycohemoglobin Standardization Program (NGSP) certified method. Blood BLOOD SPECIMEN / Unknown Venipuncture / Unknown 05/03/2024 12:58 AM SCRAPE GATHERER 05/03/2024 1:57 AM SCRAPE GATHERER Jun Allen MD LAB - CHEMISTRY NADIA VALENTE Performing Organization Address City/[facility]/ZIP Co de Phone Number [facility] [address] [place] [phone], [facility] [phone] * RESPIRATORY PANEL WITH SARS-COV-2 BY PCR ([facility]) (05/02/2024 10:30 PM SCRAPE GATHERER) [facility] Adenovirus PCR Not detected Not detected 05/03/2024 7:10 AM SCRAPE GATHERER [facility] Coronavirus 229E PCR Not detected Not detected 05/03/2024 7:10 AM SCRAPE GATHERER [facility] Coronavirus HKU1 PCR Not detected Not detected 05/03/2024 7:10 AM SCRAPE GATHERER [facility] Coronavirus NL63 PCR Not detected Not detected 05/03/2024 7:10 AM SCRAPE GATHERER [facility] Coronavirus OC43 PCR Not detected Not detected 05/03/2024 7:10 AM SCRAPE GATHERER [facility] COVID-19 PCR Not detected Not detected 05/03/2024 7:10 AM SCRAPE GATHERER [facility] Human Metapneumovirus PCR Not detected Not detected 05/03/2024 7:10 AM SCRAPE GATHERER [facility] Human Rhinovirus/Enterov irus PCR Not detected Not detected 05/03/2024 7:10 AM SCRAPE GATHERER [facility] Influenza A PCR Not detected Not detected 05/03/2024 7:10 AM SCRAPE GATHERER [facility] Influenza B PCR Not detected Not detected 05/03/2024 7:10 AM SCRAPE GATHERER [facility] Parainfluenza Virus 1 PCR Not detected Not detected 05/03/2024 7:10 AM SCRAPE GATHERER [facility] Parainfluenza Virus 2 PCR Not detected Not detected 05/03/2024 7:10 AM SCRAPE GATHERER [facility] Parainfluenza Virus 3 PCR Not detected Not detected 05/03/2024 7:10 AM SCRAPE GATHERER [facility] Parainfluenza Virus 4 PCR Not detected Not detected 05/03/2024 7:10 AM SCRAPE GATHERER [facility] Respiratory Syncytial Virus PCR Not detected Not detected 05/03/2024 7:10 AM SCRAPE GATHERER [facility] Bordetella parapertussis PCR Not detected Not detected 05/03/2024 7:10 AM SCRAPE GATHERER [facility] Bordetella pertussis PCR Not detected Not detected 05/03/2024 7:10 AM SCRAPE GATHERER [facility] Chlamydia pneumoniae PCR Not detected Not detected 05/03/2024 7:10 AM SCRAPE GATHERER [facility] Mycoplasma pneumoniae PCR Not detected Not detected 05/03/2024 7:10 AM SCRAPE GATHERER [facility] Microbiology SPECIMEN FROM NASOPHARYNGEAL STRUCTURE / Unknown Collection / Unknown 05/02/2024 10:30 PM SCRAPE GATHERER 05/03/2024 1:26 AM SCRAPE GATHERER [facility] - 05/03/2024 7:10 AM SCRAPE GATHERER This nucleic amplification assay has received FDA authorization via the [employer]. Jun Allen MD LAB - MICROBIOLOGY O VANIA Performing Organization Address City/[facility]/ZIP Co de Phone Number [facility] MICRO[facility] [address] [place] [address], [facility] [phone] * CULTURE MRSA (05/02/2024 10:30 PM SCRAPE GATHERER) Pathologist [facility] Culture Negative for methicillin-resist ant Staphylococcus aureus (MRSA) SAURABH 05/04/2024 7:54 AM SCRAPE GATHERER [facility] MICROBIOLOG[facility] Microbiology SPECIMEN FROM NASAL FOSSAE / Unknown Collection / Unknown 05/02/2024 10:30 PM SCRAPE GATHERER 05/03/2024 1:27 AM SCRAPE GATHERER Jun Allen MD LAB - MICROBIOLOGY O VANIA Performing Organization Address [facility]/ZIP Co de Phone Number [facility] [address] [place] [address], [facility] [phone] * VANCOMYCIN LEVEL RANDOM (05/02/2024 10:21 PM SCRAPE GATHERER) Pathologist [facility] Vancomycin Random 17.5 Therapeutic Ranges not established for random specimens ug/mL 05/02/2024 11:05 PM SCRAPE GATHERER [facility] Blood BLOOD SPECIMEN / Unknown Venipuncture / Unknown 05/02/2024 10:21 PM SCRAPE GATHERER 05/02/2024 10:32 PM SCRAPE GATHERER Narrative [facility] - 05/02/2024 11:05 PM SCRAPE GATHERER See institution protocol. Jun Allen MD LAB - CHEMISTRY NADIA VALENTE Performing Organization Address City/[facility]/ZIP Co de Phone Number [facility] [address] [address], [facility] [phone] * PHOSPHATIDYLETHANOL (PETH) (05/02/2024 9:14 PM SCRAPE GATHERER) Pathologist [facility] PEth 16:0/18.1 (POPEth) 59 ng/mL 05/05/2024 3:22 PM SCRAPE GATHERER [facility] ([facility]) Comment: PEth 16:0/18:1 (POPEth) Less than 10 ng/mL............Not detected Less than 20 ng/mL............Abstinence or light alcohol consumption 20 - 200 ng/mL................Moderate alcohol consumption Greater than 200 ng/mL........Heavy alcohol consumption or chronic alcohol use (Reference: Rufino Rae and Jory Chavis 2018 J. Forensic Sci) PEth 16:0/18.2 (PLPEth) 13 ng/mL 05/05/2024 3:22 PM [facility] [employer] ([facility]) Comment:Reference ranges are not well established. EER Peth See Note 05/05/2024 3:22 PM SCRAPE GATHERER [employer] ([facility]) Comment: Authorized individuals can access the [employer] Enhanced Report with an [employer] Connect account using the following link. Your local lab can assist you in obtaining the patient report if you don't have a Connect account. [email or web address] Interpretation PEth See Comment 05/05/2024 3:22 PM SCRAPE GATHERER [employer] ([facility]) Comment: Phosphatidylethanol (PEth) is a group of [...] developed and its performance characteristics determined by [employer]. It has not been cleared or approved by the U.S. Food and Drug Administration. This test was performed in a CLIA-certified laboratory and is intended for clinical purposes. Performed By: [employer] [address] [place] [address] News Commentator: Giorgio Poole MD, PhD CLIA Number: [id number] Blood BLOOD SPECIMEN / Unknown Venipuncture / Unknown 05/02/2024 9:14 PM SCRAPE GATHERER 05/02/2024 10:05 PM SCRAPE GATHERER Jun Allen MD LAB - CHEMISTRY NADIA VALENTE [facility] Organization Address City/State/ZIP Co de Phone Number [facility] [employer] [facility]) [address] [place] [address], [facility] * SMOOTH MUSCLE ANTIBODY W REFLEX TITER (05/02/2024 9:14 PM SCRAPE GATHERER) F-Actin Antibody IgG 19 0 - 19 Units 05/05/2024 5:30 AM SCRAPE GATHERER [employer] ([facility]) Comment: If F-Actin (Smooth Muscle) Antibody, IgG [...] suspicion for AIH is strong. Performed By: [employer] [address] [place] [address] News Commentator: Giorgio Poole MD, PhD CLIA Number: [id number] Blood BLOOD SPECIMEN / Unknown Venipuncture / Unknown 05/02/2024 9:14 PM SCRAPE GATHERER 05/02/2024 10:05 PM SCRAPE GATHERER Jun Allen MD LAB - SEROLOGY ORDER GERALDO Performing Organization Address City/[facility]/ZIP Co de Phone Number [facility] [employer] [facility]) [address] * (ABNORMAL) MITOCHONDRIAL ANTIBODY SCREEN (05/02/2024 9:14 PM SCRAPE GATHERER) Mitochondrial M2 Antibody 47.6(H) 0.0 - 24.9 Units 05/05/2024 5:31 AM SCRAPE GATHERER [facility] ([facility]) Comment: REFERENCE INTERVAL: Mitochondrial (M2) Antibody, IgG [...] does not rule out PBC. Performed By: [facility] [employer] [address] [place] [address] News Commentator: Giorgio Poole MD, PhD CLIA Number: [id number] Blood BLOOD SPECIMEN / Unknown Venipuncture / Unknown 05/02/2024 9:14 PM SCRAPE GATHERER 05/02/2024 10:05 PM SCRAPE GATHERER Jun Allen MD LAB - CHEMISTRY ORDE RABLES [facility] [employer] [facility]) [address] * CERULOPLASMIN (05/02/2024 9:14 PM SCRAPE GATHERER) Ceruloplasmin 22 20 - 60 mg/dL 05/02/2024 10:43 PM SCRAPE GATHERER [facility] Blood BLOOD SPECIMEN / Unknown Venipuncture / Unknown 05/02/2024 9:14 PM SCRAPE GATHERER 05/02/2024 10:05 PM SCRAPE GATHERER Jun Allen MD LAB - CHEMISTRY [facility] Performing Organization Address [facility]/ZIP Co de Phone Number [facility] [address] [place] [address], [facility] [phone] * (ABNORMAL) B-TYPE NATRIURETIC PEPTIDE (05/02/2024 9:14 PM SCRAPE GATHERER) BNP 193(H) <100 pg/mL 05/02/2024 10:58 PM SCRAPE GATHERER [facility] Comment: A decision threshold of 100 [...] Unknown Venipuncture / Unknown 05/02/2024 9:14 PM SCRAPE GATHERER 05/02/2024 10:17 PM SCRAPE GATHERER Jun Allen MD LAB - CHEMISTRY [facility]IA [facility] Performing Organization Address [facility]/ZIP Co de Phone Number [facility] [address] [place] [address], [facility] [phone] * TSH (05/02/2024 9:14 PM SCRAPE GATHERER) TSH 2.875 0.350 - 4.940 uIU/mL 05/03/2024 2:26 AM SCRAPE GATHERER [facility] Blood BLOOD SPECIMEN / Unknown Venipuncture / Unknown 05/02/2024 9:14 PM SCRAPE GATHERER 05/02/2024 10:17 PM SCRAPE GATHERER Jun Allen MD LAB - CHEMISTRY NADIA [facility] [address] [place] [address], [facility] [phone] from Last 3 Months Advance Directives * Full Code (Latest Code Status on File) Date Activated Date Inactivated Comments 05/02/2024 9:07 PM 06/06/2024 4:40 PM
--- OUTSIDE RECORDS SUMMARY | 2024-07-07 14:26 | XMS_ITS | Referral Summary ---
Author Organization [facility] Address [address] [place] [address] Care Team Providers Care Blood Bank Booking Clerk Name Role Phone Unavailable Primary Care Provider Unavailabl e Source Comments [facility],non-owned Affiliates and Associated Physician Practices is amultiple site organization consisting of ambulatory clinics and hospital sitesin [place], [place], [place] and [place]. This disclosure is being madepursuant to the Care Everywhere program and may not contain all information available regarding this patient. Last updated 18.[facility] Encounters Date Type Department Care Team Description 05/02/2024 8:30 PM LIABILITY ANALYST - 06/06/2024 3:30 PM [facility] Hospital Encounter [facility] [address] [place] [id number] Jun Allen MD Ferguson, Keith T, MD Espiritu, MD Polly Jansen, MD Luzma Nolen Maya, MD Fernelius, Joshua, MD Majeed, MD Rasheed Hilton Aman, DO Smutz, Gloria Wheeler, Internal Medicine Discharge Disposition: Retirement or Supportive Care 05/02/2024 Travel from Last 3 Months Allergies No known active allergies Medications * [...] for Cough 06/06/2024 Active saline nasal spray (Wilkin; Baby Geneva) 0.65 % nasal spray Montara 1 (one) spray into each nostril every [...] Active nicotine (Nicoderm CQ) 14 MG/24HR patchIndications:[employer] sales account representative use disorder Apply 1 (one) patch to [...] septic shock 05/03/2024 Decompensated cirrhosis 05/01/2024 Immunizations Name Administration Dates Next Due INFLUENZA [...] care, and heating? Not very hard 05/03/2024 [facility] [place] [facility] - Occupational Stress [...] any time in the past 12 m the rehabilitation institute, were you homeless or living in a skilled nursing (including now)? No 05/03/2024 Sex and Gender Information Value Date Recorded Sex Assigned at Not on file Gender Identity Female 05/03/2024 4:30 PM LIABILITY ANALYST Sexual Orientation Don't know 05/02/2024 9: 14 PM LIABILITY ANALYST Last Filed Vital Signs Vital Sign Reading Time Taken Comments Blood Pressure 126/64 06/05/2024 11:09 PM LIABILITY ANALYST Pulse 67 06/05/2024 11:09 PM LIABILITY ANALYST Temperature 36.7 C (98.1 F) 06/05/2024 2:11 PM LIABILITY ANALYST Respiratory Rate 16 06/04/2024 3:29 PM LIABILITY ANALYST Oxygen Saturation 92% 06/05/2024 11:09 PM LIABILITY ANALYST Inhaled Oxygen Concentration 40% 05/19/2024 1 2:53 PM LIABILITY ANALYST Weight 64.9 kg (143 lb) 06/03/2024 4:00 AM LIABILITY ANALYST Height 162.6 cm (5' 4) 05/02/2024 8:45 PM LIABILITY ANALYST Body Mass Index 24.55 05/02/2024 8:45 PM LIABILITY ANALYST Functional Status Functional Status Response Date of Assess ment Is person deaf or have serious hearing difficult y? No 06/06/2024 Is person blind or have serious difficulty seein g? No 06/06/2024 Does person have serious dif ficulty walking/climbing stairs? No 06/06/2024 Does person have difficulty dressing/bathing? No 06/06/2024 Does person have difficulty doing errands alone? Yes 06/06/2024 Cognitive Status Response Date of Assessm ent Does person have difficulty concentrating/remembering/making decisions? Yes 06/06/2024 Plan of Treatment Not on file Procedures Procedure Name Priority Date/Time Associated Diagnosis Comments PT-INR SLH Routine 06/05/2024 8:08 AM LIABILITY ANALYST PHOSPHORUS BLOOD Routine 06/05/2024 8:08 AM LIABILITY ANALYST MAGNESIUM BLOOD Routine 06/05/2024 8:08 AM LIABILITY ANALYST COMPREHENSIVE METABOLIC PANEL Routine 06/05/2024 8:08 AM LIABILITY ANALYST PT-INR SLH Routine 06/03/2024 7:23 PM LIABILITY ANALYST PHOSPHORUS BLOOD Routine 06/03/2024 7:23 PM LIABILITY ANALYST MAGNESIUM BLOOD Routine 06/03/2024 7:23 PM LIABILITY ANALYST COMPREHENSIVE METABOLIC PANEL Routine 06/03/2024 7:23 PM LIABILITY ANALYST PT-INR SLH Routine 06/02/2024 7:48 PM LIABILITY ANALYST PHOSPHORUS BLOOD Routine 06/02/2024 7:48 PM LIABILITY ANALYST MAGNESIUM BLOOD Routine 06/02/2024 7:48 PM LIABILITY ANALYST COMPREHENSIVE METABOLIC PANEL Routine 06/02/2024 7:48 PM LIABILITY ANALYST PT-INR SLH Routine 06/01/2024 7:34 PM LIABILITY ANALYST PHOSPHORUS BLOOD Routine 06/01/2024 7:34 PM LIABILITY ANALYST MAGNESIUM BLOOD Routine 06/01/2024 7:34 PM LIABILITY ANALYST COMPREHENSIVE METABOLIC PANEL Routine 06/01/2024 7:34 PM LIABILITY ANALYST PT-INR SLH Routine 05/31/2024 7:04 PM LIABILITY ANALYST PHOSPHORUS BLOOD Routine 05/31/2024 7:04 PM LIABILITY ANALYST MAGNESIUM BLOOD Routine 05/31/2024 7:04 PM LIABILITY ANALYST COMPREHENSIVE METABOLIC PANEL Routine 05/31/2024 7:04 PM LIABILITY ANALYST CBC W AUTO DIFFERENTIAL Routine 05/31/19 7:04 PM LIABILITY ANALYST PT-INR SLH Routine 05/30/2024 6:06 AM LIABILITY ANALYST PHOSPHORUS BLOOD AM Draw 05/30/2024 6:06 AM LIABILITY ANALYST MAGNESIUM BLOOD AM Draw 05/30/2024 6:06 AM LIABILITY ANALYST COMPREHENSIVE METABOLIC PANEL AM Draw 05/30/2024 6:06 AM LIABILITY ANALYST CBC W AUTO DIFFERENTIAL AM Draw 05/30/19 6:06 AM LIABILITY ANALYST PT-INR SLH Routine 05/29/2024 7:15 AM LIABILITY ANALYST PHOSPHORUS BLOOD AM Draw 05/29/2024 7:15 AM LIABILITY ANALYST MAGNESIUM BLOOD AM Draw 05/29/2024 7:15 AM LIABILITY ANALYST COMPREHENSIVE METABOLIC PANEL AM Draw 05/29/2024 7:15 AM LIABILITY ANALYST CBC W AUTO DIFFERENTIAL AM Draw 05/29/19 7:15 AM LIABILITY ANALYST MAGNESIUM BLOOD AM Draw 05/28/2024 12:46 PM LIABILITY ANALYST COMPREHENSIVE METABOLIC PANEL AM Draw 05/28/2024 12:46 PM LIABILITY ANALYST PT-INR SLH Routine 05/28/2024 6:02 AM LIABILITY ANALYST PHOSPHORUS BLOOD AM Draw 05/28/2024 6:02 AM LIABILITY ANALYST CBC W AUTO DIFFERENTIAL AM Draw 05/28/19 6:02 AM LIABILITY ANALYST PT-INR SLH Routine 05/27/2024 7:03 AM LIABILITY ANALYST PHOSPHORUS BLOOD AM Draw 05/27/2024 7:03 AM LIABILITY ANALYST MAGNESIUM BLOOD AM Draw 05/27/2024 7:03 AM LIABILITY ANALYST COMPREHENSIVE METABOLIC PANEL AM Draw 05/27/2024 7:03 AM LIABILITY ANALYST CBC W AUTO DIFFERENTIAL AM Draw 05/27/19 7:03 AM LIABILITY ANALYST PT-INR SLH Routine 05/26/2024 7:04 AM LIABILITY ANALYST PHOSPHORUS BLOOD AM Draw 05/26/2024 7:04 AM LIABILITY ANALYST MAGNESIUM BLOOD AM Draw 05/26/2024 7:04 AM LIABILITY ANALYST COMPREHENSIVE METABOLIC PANEL AM Draw 05/26/2024 7:04 AM LIABILITY ANALYST CBC W AUTO DIFFERENTIAL AM Draw 05/26/19 7:04 AM LIABILITY ANALYST PT-INR SLH Routine 05/25/2024 7:00 AM LIABILITY ANALYST PHOSPHORUS BLOOD AM Draw 05/25/2024 7:00 AM LIABILITY ANALYST MAGNESIUM BLOOD AM Draw 05/25/2024 7:00 AM LIABILITY ANALYST COMPREHENSIVE METABOLIC PANEL AM Draw 05/25/2024 7:00 AM LIABILITY ANALYST CBC W AUTO DIFFERENTIAL AM Draw 05/25/19 7:00 AM LIABILITY ANALYST PT EVAL AND TREAT Routine 05/24/2024 2:0 4 PM LIABILITY ANALYST OT EVAL AND TREAT Routine 05/24/2024 2:0 4 PM LIABILITY ANALYST PT-INR SLH Routine 05/24/2024 8:39 AM LIABILITY ANALYST PHOSPHORUS BLOOD AM Draw 05/24/2024 8:39 AM LIABILITY ANALYST MAGNESIUM BLOOD AM Draw 05/24/2024 8:39 AM LIABILITY ANALYST COMPREHENSIVE METABOLIC PANEL AM Draw 05/24/2024 8:39 AM LIABILITY ANALYST CBC W AUTO DIFFERENTIAL AM Draw 05/24/19 8:39 AM LIABILITY ANALYST GLUCOSE - POINT OF CARE Routine 05/23/19 10:19 PM LIABILITY ANALYST PROCALCITONIN LEVEL Routine 05/23/2024 3 :06 PM LIABILITY ANALYST SYPHILIS ANTIBODY CASCADING REFLEX Routine 05/23/2024 3:06 PM LIABILITY ANALYST URINALYSIS REFLEX TO MICROSCOPIC NO CULTURE Routine 05/23/2024 11:05 AM LIABILITY ANALYST VITAMIN B12 Routine 05/23/2024 6:20 AM LIABILITY ANALYST PT-INR SLH Routine 05/23/2024 6:20 AM LIABILITY ANALYST PHOSPHORUS BLOOD AM Draw 05/23/2024 6:20 AM LIABILITY ANALYST MAGNESIUM BLOOD AM Draw 05/23/2024 6:20 AM LIABILITY ANALYST COMPREHENSIVE METABOLIC PANEL AM Draw 05/23/2024 6:20 AM LIABILITY ANALYST CBC W AUTO DIFFERENTIAL AM Draw 05/23/19 6:20 AM LIABILITY ANALYST PT EVAL AND TREAT Routine 05/22/2024 10: 47 AM LIABILITY ANALYST OT EVAL AND TREAT Routine 05/22/2024 10: 47 AM LIABILITY ANALYST GLUCOSE - POINT OF CARE Routine 05/22/19 6:14 AM LIABILITY ANALYST PT-INR SLH Routine 05/22/2024 5:24 AM LIABILITY ANALYST PHOSPHORUS BLOOD AM Draw 05/22/2024 5:24 AM LIABILITY ANALYST MAGNESIUM BLOOD AM Draw 05/22/2024 5:24 AM LIABILITY ANALYST COMPREHENSIVE METABOLIC PANEL AM Draw 05/22/2024 5:24 AM LIABILITY ANALYST CBC W AUTO DIFFERENTIAL AM Draw 05/22/19 5:24 AM LIABILITY ANALYST GLUCOSE - POINT OF CARE Routine 05/22/19 12:18 AM LIABILITY ANALYST GLUCOSE - POINT OF CARE Routine 05/21/19 5:03 PM LIABILITY ANALYST GLUCOSE - POINT OF CARE Routine 05/21/19 12:09 PM LIABILITY ANALYST PT-INR SLH Routine 05/21/2024 6:22 AM LIABILITY ANALYST PHOSPHORUS BLOOD AM Draw 05/21/2024 6:22 AM LIABILITY ANALYST MAGNESIUM BLOOD AM Draw 05/21/2024 6:22 AM LIABILITY ANALYST COMPREHENSIVE METABOLIC PANEL AM Draw 05/21/2024 6:22 AM LIABILITY ANALYST CBC W AUTO DIFFERENTIAL AM Draw 05/21/19 6:22 AM LIABILITY ANALYST GLUCOSE - POINT OF CARE Routine 05/21/19 12:28 AM LIABILITY ANALYST GLUCOSE - POINT OF CARE Routine 05/20/19 12:20 PM LIABILITY ANALYST PT-INR SLH Routine 05/20/2024 7:30 AM LIABILITY ANALYST CBC W AUTO DIFFERENTIAL AM Draw 05/20/19 7:30 AM LIABILITY ANALYST PHOSPHORUS BLOOD AM Draw 05/20/2024 7:29 AM LIABILITY ANALYST MAGNESIUM BLOOD AM Draw 05/20/2024 7:29 AM LIABILITY ANALYST COMPREHENSIVE METABOLIC PANEL AM Draw 05/20/2024 7:29 AM LIABILITY ANALYST GLUCOSE - POINT OF CARE Routine 05/20/19 12:23 AM LIABILITY ANALYST GLUCOSE - POINT OF CARE Routine 01/02/20 25 12:[address] HEAD WO CONTRAST Routine 05/19/2024 1 0:03 AM LIABILITY ANALYST Encephalopathy, unspecified type PT-INR SLH Routine 05/19/2024 7:13 AM LIABILITY ANALYST PHOSPHORUS BLOOD AM Draw 05/19/2024 7:13 AM LIABILITY ANALYST MAGNESIUM BLOOD AM Draw 05/19/2024 7:13 AM LIABILITY ANALYST COMPREHENSIVE METABOLIC PANEL AM Draw 05/19/2024 7:13 AM LIABILITY ANALYST CBC W AUTO DIFFERENTIAL AM Draw 05/19/19 7:13 AM LIABILITY ANALYST GLUCOSE - POINT OF CARE Routine 05/19/19 5:54 AM LIABILITY ANALYST GLUCOSE - POINT OF CARE Routine 05/19/19 2:03 AM LIABILITY ANALYST GLUCOSE - POINT OF CARE Routine 05/18/19 10:51 PM LIABILITY ANALYST GLUCOSE - POINT OF CARE Routine 05/18/19 5:57 PM LIABILITY ANALYST CK BLOOD Routine 05/18/2024 12:26 PM LIABILITY ANALYST HGB HCT PANEL Timed 05/18/2024 12:26 PM LIABILITY ANALYST GLUCOSE - POINT OF CARE Routine 05/18/19 11:35 AM LIABILITY ANALYST XR ABDOMEN KUB PORTABLE STAT 05/18/19 10:38 AM LIABILITY ANALYST Alteration in nutrition associated with tube feeding GLUCOSE - POINT OF CARE Routine 05/18/19 6:11 AM LIABILITY ANALYST XR CHEST 1VW PORTABLE Routine 05/18/2024 4:33 AM LIABILITY ANALYST Acute respiratory failure with hypoxia (HCC) PT-INR SLH Routine 05/18/2024 2:51 AM LIABILITY ANALYST PHOSPHORUS BLOOD AM Draw 05/18/2024 2:51 AM LIABILITY ANALYST MAGNESIUM BLOOD AM Draw 05/18/2024 2:51 AM LIABILITY ANALYST COMPREHENSIVE METABOLIC PANEL AM Draw 05/18/2024 2:51 AM LIABILITY ANALYST CBC W AUTO DIFFERENTIAL STAT 05/18/19 2:51 AM LIABILITY ANALYST GLUCOSE - POINT OF CARE Routine 05/18/19 12:08 AM LIABILITY ANALYST GLUCOSE - POINT OF CARE Routine 05/17/20 4:37 PM LIABILITY ANALYST PROCALCITONIN LEVEL Routine 05/17/2024 1 2:04 PM LIABILITY ANALYST GLUCOSE - POINT OF CARE Routine 05/17/20 11:24 AM LIABILITY ANALYST PT-INR H Routine 05/17/2024 8:29 AM LIABILITY ANALYST PHOSPHORUS BLOOD AM Draw 05/17/2024 8:29 AM LIABILITY ANALYST MAGNESIUM BLOOD AM Draw 05/17/2024 8:29 AM LIABILITY ANALYST COMPREHENSIVE METABOLIC PANEL AM Draw 05/17/2024 8:29 AM LIABILITY ANALYST CBC W AUTO DIFFERENTIAL AM Draw 05/17/20 8:29 AM LIABILITY ANALYST GLUCOSE - POINT OF CARE Routine 05/17/20 6:48 AM LIABILITY ANALYST EKG 12-LEAD STAT 05/16/2024 5:03 PM LIABILITY ANALYST Acute respiratory failure with hypoxia (HCC) XR CHEST 1VW PORTABLE STAT 05/16/2024 4:52 PM LIABILITY ANALYST Acute respiratory failure with hypoxia (HCC) AMMONIA STAT 05/16/2024 4:41 PM LIABILITY ANALYST COMPREHENSIVE METABOLIC PANEL STAT 05/16/2024 4:23 PM LIABILITY ANALYST BLOOD GASES ART + COOX PANEL STAT 05/16/2024 4:23 PM LIABILITY ANALYST GLUCOSE - POINT OF CARE Routine 05/16/20 4:15 PM LIABILITY ANALYST BASIC METABOLIC PANEL (CALCIUM TOTAL) Routine 05/16/2024 4:12 PM LIABILITY ANALYST GLUCOSE - POINT OF CARE Routine 05/16/20 12:31 PM LIABILITY ANALYST PTT SLH Routine 05/16/2024 6:20 AM LIABILITY ANALYST PT-INR SLH Routine 05/16/2024 6:20 AM LIABILITY ANALYST PHOSPHORUS BLOOD AM Draw 05/16/2024 6:20 AM LIABILITY ANALYST MAGNESIUM BLOOD AM Draw 05/16/2024 6:20 AM LIABILITY ANALYST COMPREHENSIVE METABOLIC PANEL AM Draw 05/16/2024 6:20 AM LIABILITY ANALYST CBC W AUTO DIFFERENTIAL AM Draw 05/16/20 6:20 AM LIABILITY ANALYST GLUCOSE - POINT OF CARE Routine 05/16/20 5:10 AM LIABILITY ANALYST GLUCOSE - POINT OF CARE Routine 05/16/20 1:47 AM LIABILITY ANALYST PTT SLH Routine 05/15/2024 5:28 AM LIABILITY ANALYST PT-INR SLH Routine 05/15/2024 5:28 AM LIABILITY ANALYST PHOSPHORUS BLOOD AM Draw 05/15/2024 5:28 AM LIABILITY ANALYST MAGNESIUM BLOOD AM Draw 05/15/2024 5:28 AM LIABILITY ANALYST COMPREHENSIVE METABOLIC PANEL AM Draw 05/15/2024 5:28 AM LIABILITY ANALYST CBC W AUTO DIFFERENTIAL AM Draw 05/15/20 5:28 AM LIABILITY ANALYST GLUCOSE - POINT OF CARE Routine 05/15/20 5:15 AM LIABILITY ANALYST GLUCOSE - POINT OF CARE Routine 05/15/20 1:06 AM LIABILITY ANALYST GLUCOSE - POINT OF CARE Routine 05/14/20 11:14 PM LIABILITY ANALYST GLUCOSE - POINT OF CARE Routine 05/14/20 5:35 PM LIABILITY ANALYST FERRITIN Routine 05/14/2024 4:05 PM LIABILITY ANALYST MRSA DNA PCR STAT 05/14/2024 2:47 PM LIABILITY ANALYST BLOOD GASES PAT + COOX PANEL Routine 05/14/2024 2:46 PM LIABILITY ANALYST GLUCOSE - POINT OF CARE Routine 05/14/20 12:48 PM LIABILITY ANALYST XR CHEST 1VW PORTABLE Routine 05/14/2024 10:35 AM LIABILITY ANALYST Dyspnea, unspecified type GLUCOSE - POINT OF CARE Routine 05/14/20 7:07 AM LIABILITY ANALYST BILIRUBIN DIRECT Routine 05/14/2024 6:23 AM LIABILITY ANALYST PHOSPHORUS BLOOD AM Draw 05/14/2024 6:23 AM LIABILITY ANALYST MAGNESIUM BLOOD AM Draw 05/14/2024 6:23 AM LIABILITY ANALYST COMPREHENSIVE METABOLIC PANEL AM Draw 05/14/2024 6:23 AM LIABILITY ANALYST CBC W AUTO DIFFERENTIAL AM Draw 05/14/20 6:23 AM LIABILITY ANALYST GLUCOSE - POINT OF CARE Routine 05/13/20 6:24 PM LIABILITY ANALYST GLUCOSE - POINT OF CARE Routine 05/13/20 12:13 PM LIABILITY ANALYST MAGNESIUM BLOOD AM Draw 05/13/2024 7:54 AM LIABILITY ANALYST COMPREHENSIVE METABOLIC PANEL AM Draw 05/13/2024 7:54 AM LIABILITY ANALYST EKG 12-LEAD STAT 05/13/2024 6:43 AM LIABILITY ANALYST Decompensated cirrhosis (HCC) GLUCOSE - POINT OF CARE Routine 05/13/20 6:24 AM LIABILITY ANALYST PHOSPHORUS BLOOD AM Draw 05/13/2024 4:20 AM LIABILITY ANALYST CBC W AUTO DIFFERENTIAL AM Draw 05/13/20 4:20 AM LIABILITY ANALYST GLUCOSE - POINT OF CARE Routine 05/12/20 11:45 PM LIABILITY ANALYST GLUCOSE - POINT OF CARE Routine 05/12/20 6:20 PM LIABILITY ANALYST XR ABDOMEN KUB PORTABLE STAT 05/12/20 6:00 PM LIABILITY ANALYST Decompensated cirrhosis (HCC) XR CHEST 1VW PORTABLE STAT 05/12/2024 4:46 PM LIABILITY ANALYST Decompensated cirrhosis (HCC) XR ABDOMEN KUB PORTABLE STAT 05/12/20 4:46 PM LIABILITY ANALYST Decompensated cirrhosis (HCC) GLUCOSE - POINT OF CARE Routine 05/12/20 12:12 PM LIABILITY ANALYST GLUCOSE - POINT OF CARE Routine 05/12/20 6:06 AM LIABILITY ANALYST PHOSPHORUS BLOOD AM Draw 05/12/2024 6:02 AM LIABILITY ANALYST MAGNESIUM BLOOD AM Draw 05/12/2024 6:02 AM LIABILITY ANALYST COMPREHENSIVE METABOLIC PANEL AM Draw 05/12/2024 6:02 AM LIABILITY ANALYST CBC W AUTO DIFFERENTIAL AM Draw 05/12/20 6:02 AM LIABILITY ANALYST BLOOD GASES ART + COOX PANEL Routine 05/12/2024 6:02 AM LIABILITY ANALYST GLUCOSE - POINT OF CARE Routine 05/12/20 12:11 AM LIABILITY ANALYST PT EVAL AND TREAT Routine 05/11/2024 7:4 9 PM LIABILITY ANALYST OT EVAL AND TREAT Routine 05/11/2024 7:4 9 PM LIABILITY ANALYST CULTURE SPUTUM+GRAM STAIN Routine 2023 1:48 PM LIABILITY ANALYST PHOSPHORUS BLOOD AM Draw 05/11/2024 4:44 AM LIABILITY ANALYST MAGNESIUM BLOOD AM Draw 05/11/2024 4:44 AM LIABILITY ANALYST COMPREHENSIVE METABOLIC PANEL AM Draw 05/11/2024 4:44 AM LIABILITY ANALYST CBC W AUTO DIFFERENTIAL AM Draw 05/11/20 4:44 AM LIABILITY ANALYST GLUCOSE - POINT OF CARE Routine 05/11/20 4:43 AM LIABILITY ANALYST GLUCOSE - POINT OF CARE Routine 05/11/20 1:13 AM LIABILITY ANALYST XR CHEST 1VW PORTABLE STAT 05/10/2024 10:54 AM LIABILITY ANALYST Pleural effusion CBC W AUTO DIFFERENTIAL AM Draw 05/10/20 5:14 AM LIABILITY ANALYST GLUCOSE - POINT OF CARE Routine 05/10/20 5:13 AM LIABILITY ANALYST PHOSPHORUS BLOOD AM Draw 05/10/2024 3:21 AM LIABILITY ANALYST MAGNESIUM BLOOD AM Draw 05/10/2024 3:21 AM LIABILITY ANALYST COMPREHENSIVE METABOLIC PANEL AM Draw 05/10/2024 3:21 AM LIABILITY ANALYST GLUCOSE - POINT OF CARE Routine 05/09/20 11:34 PM LIABILITY ANALYST GLUCOSE - POINT OF CARE Routine 05/09/20 5:23 PM LIABILITY ANALYST PT EVAL AND TREAT Routine 05/09/2024 3:1 2 PM LIABILITY ANALYST OT EVAL AND TREAT Routine 05/09/2024 3:1 2 PM LIABILITY ANALYST GLUCOSE - POINT OF CARE Routine 05/09/20 1:20 PM LIABILITY ANALYST PHOSPHORUS BLOOD AM Draw 05/09/2024 5:20 AM LIABILITY ANALYST MAGNESIUM BLOOD AM Draw 05/09/2024 5:20 AM LIABILITY ANALYST COMPREHENSIVE METABOLIC PANEL AM Draw 05/09/2024 5:20 AM LIABILITY ANALYST CBC W AUTO DIFFERENTIAL AM Draw 05/09/20 5:20 AM LIABILITY ANALYST GLUCOSE - POINT OF CARE Routine 05/09/20 5:19 AM LIABILITY ANALYST GLUCOSE - POINT OF CARE Routine 05/09/20 12:00 AM LIABILITY ANALYST GLUCOSE - POINT OF CARE Routine 05/08/20 6:17 PM LIABILITY ANALYST GLUCOSE - POINT OF CARE Routine 05/08/20 12:24 PM LIABILITY ANALYST GLUCOSE - POINT OF CARE Routine 05/08/20 6:47 AM LIABILITY ANALYST PHOSPHORUS BLOOD AM Draw 05/08/2024 3:35 AM LIABILITY ANALYST MAGNESIUM BLOOD AM Draw 05/08/2024 3:35 AM LIABILITY ANALYST COMPREHENSIVE METABOLIC PANEL AM Draw 05/08/2024 3:35 AM LIABILITY ANALYST CBC W AUTO DIFFERENTIAL AM Draw 05/08/20 3:35 AM LIABILITY ANALYST GLUCOSE - POINT OF CARE Routine 05/08/20 12:08 AM LIABILITY ANALYST GLUCOSE - POINT OF CARE Routine 05/07/20 5:43 PM LIABILITY ANALYST GLUCOSE - POINT OF CARE Routine 05/07/20 12:18 PM LIABILITY ANALYST GLUCOSE - POINT OF CARE Routine 05/07/20 6:11 AM LIABILITY ANALYST PHOSPHORUS BLOOD AM Draw 05/07/2024 4:25 AM LIABILITY ANALYST MAGNESIUM BLOOD AM Draw 05/07/2024 4:25 AM LIABILITY ANALYST COMPREHENSIVE METABOLIC PANEL AM Draw 05/07/2024 4:25 AM LIABILITY ANALYST CBC W AUTO DIFFERENTIAL AM Draw 05/07/20 4:25 AM LIABILITY ANALYST GLUCOSE - POINT OF CARE Routine 05/07/20 12:18 AM LIABILITY ANALYST GLUCOSE - POINT OF CARE Routine 05/06/20 5:27 PM LIABILITY ANALYST GLUCOSE - POINT OF CARE Routine 05/06/20 11:43 AM LIABILITY ANALYST GLUCOSE - POINT OF CARE Routine 05/06/20 5:43 AM LIABILITY ANALYST GLUCOSE - POINT OF CARE Routine 05/06/20 12:01 AM LIABILITY ANALYST DIFFERENTIAL MANUAL AM Draw 05/06/2024 1 2:01 AM LIABILITY ANALYST PHOSPHORUS BLOOD AM Draw 05/06/2024 12:0 1 AM LIABILITY ANALYST MAGNESIUM BLOOD AM Draw 05/06/2024 12:01 AM LIABILITY ANALYST COMPREHENSIVE METABOLIC PANEL AM Draw 05/06/2024 12:01 AM LIABILITY ANALYST CBC W AUTO DIFFERENTIAL AM Draw 05/06/20 12:01 AM LIABILITY ANALYST GLUCOSE - POINT OF CARE Routine 05/05/20 5:54 PM LIABILITY ANALYST GLUCOSE - POINT OF CARE Routine 05/05/20 11:47 AM LIABILITY ANALYST GLUCOSE - POINT OF CARE Routine 05/05/20 5:48 AM LIABILITY ANALYST DIFFERENTIAL MANUAL AM Draw 05/05/2024 1 2:43 AM LIABILITY ANALYST TRIGLYCERIDES BLOOD AM Draw 05/05/2024 1 2:43 AM LIABILITY ANALYST PHOSPHORUS BLOOD AM Draw 05/05/2024 12:4 3 AM LIABILITY ANALYST MAGNESIUM BLOOD AM Draw 05/05/2024 12:43 AM LIABILITY ANALYST COMPREHENSIVE METABOLIC PANEL AM Draw 05/05/2024 12:43 AM LIABILITY ANALYST CBC W AUTO DIFFERENTIAL AM Draw 05/05/20 12:43 AM LIABILITY ANALYST GLUCOSE - POINT OF CARE Routine 05/04/20 11:13 PM LIABILITY ANALYST GLUCOSE - POINT OF CARE Routine 05/04/20 6:15 PM LIABILITY ANALYST US ABDOMEN LTD W COMP DOPPLER Routine 05/04/2024 4:11 PM LIABILITY ANALYST Decompensated cirrhosis (HCC) GLUCOSE - POINT OF CARE Routine 05/04/20 11:56 AM LIABILITY ANALYST GLUCOSE - POINT OF CARE Routine 05/04/20 5:40 AM LIABILITY ANALYST BLOOD GASES ART + COOX PANEL Timed 05/04/2024 1:10 AM LIABILITY ANALYST GLUCOSE - POINT OF CARE Routine 05/04/20 12:25 AM LIABILITY ANALYST DIFFERENTIAL MANUAL AM Draw 05/04/2024 1 2:25 AM LIABILITY ANALYST PHOSPHORUS BLOOD AM Draw 05/04/2024 12:2 5 AM LIABILITY ANALYST MAGNESIUM BLOOD AM Draw 05/04/2024 12:25 AM LIABILITY ANALYST COMPREHENSIVE METABOLIC PANEL AM Draw 05/04/2024 12:25 AM LIABILITY ANALYST CBC W AUTO DIFFERENTIAL AM Draw 05/04/20 12:25 AM LIABILITY ANALYST IRON + TRANSFERRIN PANEL Routine 024 6:45 PM LIABILITY ANALYST GLUCOSE - POINT OF CARE Routine 05/03/20 5:48 PM LIABILITY ANALYST CULTURE SPUTUM+GRAM STAIN Routine 2023 4:15 PM LIABILITY ANALYST URINE MICROSCOPIC ONLY REFLEX TO CULTURE Routine 05/03/2024 2:49 PM LIABILITY ANALYST URINALYSIS REFLEX MICROSCOPIC REFLEX CULTURE Routine 05/03/2024 2:49 PM LIABILITY ANALYST CULTURE URINE Routine 05/03/2024 2:49 PM LIABILITY ANALYST STREP PNEUMONIAE ANTIGEN URINE Routine 05/03/2024 2:49 PM LIABILITY ANALYST LEGIONELLA ANTIGEN URINE Routine 024 2:49 PM LIABILITY ANALYST ECHO COMPLETE W CONTRAST W BUBBLE STUDY Routine 05/03/2024 2:00 PM LIABILITY ANALYST Dyspnea, unspecified type GLUCOSE - POINT OF CARE Routine 05/03/20 1:05 PM LIABILITY ANALYST LACTIC ACID BLOOD Routine 05/03/2024 12: 24 PM LIABILITY ANALYST CULTURE BLOOD Timed 05/03/2024 12:24 PM LIABILITY ANALYST CULTURE BLOOD Timed 05/03/2024 12:22 PM LIABILITY ANALYST GLUCOSE - POINT OF CARE Routine 05/03/20 9:49 AM LIABILITY ANALYST BLOOD GASES ART + COOX PANEL Routine 05/03/2024 5:31 AM LIABILITY ANALYST GLUCOSE - POINT OF CARE Routine 05/03/20 5:26 AM LIABILITY ANALYST LACTIC ACID BLOOD Routine 05/03/2024 3:2 6 AM LIABILITY ANALYST GLUCOSE - POINT OF CARE Routine 05/03/20 1:06 AM LIABILITY ANALYST BLOOD GASES ART + COOX PANEL Routine 05/03/2024 12:58 AM LIABILITY ANALYST HEMOGLOBIN A1C Routine 05/03/2024 12:58 AM LIABILITY ANALYST PHOSPHORUS BLOOD AM Draw 05/03/2024 12:5 8 AM LIABILITY ANALYST MAGNESIUM BLOOD AM Draw 05/03/2024 12:58 AM LIABILITY ANALYST COMPREHENSIVE METABOLIC PANEL AM Draw 05/03/2024 12:58 AM LIABILITY ANALYST CBC W AUTO DIFFERENTIAL AM Draw 05/03/20 12:58 AM LIABILITY ANALYST HIV-1 HIV-2 ANTIBODY + HIV P24 AG PANEL Routine 05/03/2024 12:58 AM LIABILITY ANALYST VITAMIN B12 Routine 05/03/2024 12:58 AM LIABILITY ANALYST RESPIRATORY PANEL WITH SARS-COV-2 BY PCR (STL) Routine 05/02/2024 10:30 PM LIABILITY ANALYST CULTURE MRSA Routine 05/02/2024 10:30 PM LIABILITY ANALYST VANCOMYCIN LEVEL RANDOM STAT 05/02/20 10:21 PM LIABILITY ANALYST SYPHILIS ANTIBODY CASCADING REFLEX Timed 05/02/2024 10:21 PM LIABILITY ANALYST XR CHEST 1VW PORTABLE STAT 05/02/2024 9:29 PM LIABILITY ANALYST Decompensated cirrhosis (HCC) XR ABDOMEN KUB PORTABLE STAT 05/02/20 9:28 PM LIABILITY ANALYST Decompensated cirrhosis (HCC) TSH Routine 05/02/2024 9:14 PM LIABILITY ANALYST SMOOTH MUSCLE ANTIBODY W REFLEX TITER STAT 05/02/2024 9:14 PM LIABILITY ANALYST MITOCHONDRIAL ANTIBODY SCREEN STAT 05/02/2024 9:14 PM LIABILITY ANALYST CERULOPLASMIN STAT 05/02/2024 9:14 PM LIABILITY ANALYST AMMONIA STAT 05/02/2024 9:14 PM LIABILITY ANALYST LACTIC ACID BLOOD STAT 05/02/2024 9:1 4 PM LIABILITY ANALYST B-TYPE NATRIURETIC PEPTIDE STAT 05/02 9:14 PM LIABILITY ANALYST PHOSPHATIDYLETHANOL (PETH) Routine 05/02 9:14 PM LIABILITY ANALYST PTT [facility] STAT 05/02/2024 9:14 PM LIABILITY ANALYST PT-INR [facility] STAT 05/02/2024 9:14 PM LIABILITY ANALYST BLOOD GASES ART + COOX PANEL STAT 05/02/2024 9:14 PM LIABILITY ANALYST MAGNESIUM BLOOD STAT 05/02/2024 9:14 PM LIABILITY ANALYST PHOSPHORUS BLOOD STAT 05/02/2024 9:14 PM LIABILITY ANALYST CBC W AUTO DIFFERENTIAL STAT 05/02/20 9:14 PM LIABILITY ANALYST COMPREHENSIVE METABOLIC PANEL STAT 05/02/2024 9:14 PM LIABILITY ANALYST LACTIC ACID BLOOD STAT 05/02/2024 9:1 4 PM LIABILITY ANALYST from Last 3 Months Results * (ABNORMAL) PT-INR [facility] (06/05/2024 8:08 AM LIABILITY ANALYST) Only the most recent of22 resultswithin the time period is included. Pathologist [facility] PT 16.9(H) 12.1 - 14.8 Seconds 06/05/2024 9:15 AM [facility] INR 1.4 See Comment 06/05/2024 9:15 AM [facility] Comment:The suggested therap eutic range for standard coumadin (warfarin) therapy is an INR of 2.0-3.0. For high-risk patients (Mechanical Mitral Valve Prosthesis, etc.), the suggested prophylactic therapeutic range is an INR of 2.5-3.5. Blood BLOOD SPECIMEN / Unknown Lab Venipuncture / Unknown 06/05/2024 8:08 AM LIABILITY ANALYST 06/05/2024 8:45 AM LIABILITY ANALYST Neal Grossman MD LAB - COAGULATION OR DERABLES [facility] [address] [place] [phone], [facility] [phone] * (ABNORMAL) COMPREHENSIVE METABOLIC PANEL (06/05/2024 8:08 AM LIABILITY ANALYST) Only the most recent of35 resultswithin the time period is included. Pathologist [facility] BUN 8 7 - 26 mg/dL 06/05/2024 9:15 AM [facility] Creatinine 0.56 0.56 - 0.96 mg/dL 06/05/2024 9:15 AM [facility] Sodium 136 136 - 145 mmol/L 06/05/2024 9:15 AM [facility] Potassium 3.7 3.5 - 4.5 mmol/L 06/05/2024 9:15 AM [facility] Chloride 108(H) 98 - 107 mmol/L 06/05/2024 9:15 AM [facility] CO2 20(L) 22 - 29 mmol/L 06/05/2024 9:15 AM [facility] Glucose 132(H) 70 - 99 mg/dL 06/05/2024 9:15 AM [facility] Calcium 8.3(L) 8.4 - 10.2 mg/dL 06/05/2024 9:15 AM [facility] Protein Total 6.2 6.0 - 8.3 g/dL 06/05/2024 9:15 AM [facility] Albumin 2.5(L) 3.4 - 5.0 g/dL 06/05/2024 9:15 AM [facility] Bilirubin Total 2.3(H) 0.2 - 1.2 mg/dL 06/05/2024 9:15 AM [facility] Alkaline Phosphatase 133 40 - 150 U/L 06/05/2024 9:15 AM [facility] ALT 30 5 - 55 U/L 06/05/2024 9:15 AM [facility] AST 38(H) 5 - 34 U/L 06/05/2024 9:15 AM [facility] Anion Gap 8 6 - 16 06/05/2024 9:15 AM [facility] BUN/Creatinine Ratio 14 7 - 23 06/05/2024 9:15 AM [facility] Osmolality Calculated 282 275 - 295 mOsm/kg 06/05/2024 9:15 AM [facility] Albumin/Globulin Ratio 0.7(L) 1.1 - 2.3 06/05/2024 9:15 AM [facility] eGFR by CKD-EPI >90 >=90 mL/min/1.7 3 m2 06/05/2024 9:15 AM [facility] Blood BLOOD SPECIMEN / Unknown Lab Venipuncture / Unknown 06/05/2024 8:08 AM [facility] 06/05/2024 8:46 AM [facility] Neal Grossman MD LAB - CHEMISTRY ORDE AMBROSIO [facility] Organization Address City/State/ZIP Co de Phone Number [facility] [address] [place] [address], [facility] [phone] * PHOSPHORUS BLOOD (06/05/2024 8:08 AM [facility]) Only the most recent of34 resultswithin the time period is included. Phosphorus 3.3 2.9 - 5.1 mg/dL 06/05/2024 9:15 AM [facility] Blood BLOOD SPECIMEN / Unknown Lab Venipuncture / Unknown 06/05/2024 8:08 AM LIABILITY ANALYST 06/05/2024 8:46 AM LIABILITY ANALYST Neal Grossman MD LAB - CHEMISTRY NADIA VALENTE [facility] [address] [place] [address], [facility] [phone] * (ABNORMAL) MAGNESIUM BLOOD (06/05/2024 8:08 AM LIABILITY ANALYST) Only the most recent of34 resultswithin the time period is included. Pathologist [facility] Magnesium 1.5(L) 1.6 - 2.6 mg/dL 06/05/2024 9:15 AM [facility] Blood BLOOD SPECIMEN / Unknown Lab Venipuncture / Unknown 06/05/2024 8:08 AM LIABILITY ANALYST 06/05/2024 8:46 AM LIABILITY ANALYST Neal Grossman MD LAB - CHEMISTRY NADIA VALENTE [facility] [address] [place] [address], [facility] [phone] * (ABNORMAL) CBC W AUTO DIFFERENTIAL (05/31/2024 7:04 PM LIABILITY ANALYST) Only the most recent of30 resultswithin the time period is included. WBC 5.5 4.0 - 10.7 x10E9/L 05/31/2024 7:45 PM [facility] RBC Count 3.51(L) 3.90 - 5.20 x10E12/L 05/31/2024 7:45 PM [facility] Hemoglobin 11.7(L) 11.9 - 15.8 g/dL 05/31/2024 7:45 PM [facility] Hematocrit 33.9(L) 34.8 - 46.1 % 05/31/2024 7:45 PM [facility] MCV 96.6 80.0 - 98.0 fL 05/31/2024 7:45 PM [facility] MCH 33.3 26.7 - 33.6 pg 05/31/2024 7:45 PM [facility] MCHC 34.5 31.7 - 36.3 g/dL 05/31/2024 7:45 PM [facility] RDW-CV 16.4(H) 11.3 - 14.8 % 05/31/2024 7:45 PM [facility] Platelet Count 149(L) 150 - 420 x10E9/L 05/31/2024 7:45 PM [facility] MPV 10.8 7.8 - 11.4 fL 05/31/2024 7:45 PM [facility] Neutrophil % 55.1 41.0 - 74.0 % 05/31/2024 7:45 PM [facility] Lymphocyte % 25.1 17.0 - 47.0 % 05/31/2024 7:45 PM [facility] Monocyte % 13.9(H) 3.0 - 11.0 % 05/31/2024 7:45 PM [facility] Eosinophil % 4.5 0.0 - 7.0 % 05/31/2024 7:45 PM [facility] Basophil % 0.7 0.0 - 1.6 % 05/31/2024 7:45 PM [facility] Immature Granulocytes % 0.7 0.0 - 1.0 % 05/31/2024 7:45 PM [facility] Neutrophil Absolute 3.04 1.60 - 7.50 x10E9/L 05/31/2024 7:45 PM [facility] Lymphocyte Absolute 1.39 1.00 - 4.40 x10E9/L 05/31/2024 7:45 PM [facility] Monocyte Absolute 0.77 0.15 - 1.00 x10E9/L 05/31/2024 7:45 PM [facility] Eosinophil Absolute 0.25 0.00 - 0.60 x10E9/L 05/31/2024 7:45 PM [facility] Basophil Absolute 0.04 0.00 - 0.13 x10E9/L 05/31/2024 7:45 PM [facility] Blood BLOOD SPECIMEN / Unknown Lab Venipuncture / Unknown 05/31/2024 7:04 PM LIABILITY ANALYST 05/31/2024 7:31 PM LIABILITY ANALYST Neal Grossman MD LAB - HEMATOLOGY ORD ERABLES [facility] [address] [place] [address], [place] [phone] * (ABNORMAL) GLUCOSE - POINT OF CARE (05/23/2024 10:19 PM LIABILITY ANALYST) Only the most recent of70 resultswithin the time period is included. Glucose WB/POC 119(H) 70 - 99 mg/dL 05/24/2024 5:39 AM LIABILITY ANALYST [facility] Specimen Type Cap Fingerstick 2024 5:39 AM LIABILITY ANALYST [facility] Blood BLOOD SPECIMEN / Unknown 05/23/2024 10:19 PM LIABILITY ANALYST 05/24/2024 5:39 AM LIABILITY ANALYST Mitchel De MD LAB - POINT OF CARE ORDERABLES Performing Organization Address City/[facility]/ZIP Co de Phone Number [facility] [address] [place] [phone], [place] [phone] * PROCALCITONIN LEVEL (05/23/2024 3:06 PM LIABILITY ANALYST) Only the most recent of2 resultswithin the time period is included. PROCALCITONIN 0.03 <=0.10 ng/mL 05/23/2024 4:21 PM LIABILITY ANALYST [facility] Blood BLOOD SPECIMEN / Unknown Lab Venipuncture / Unknown 05/23/2024 3:06 PM LIABILITY ANALYST 05/23/2024 3:17 PM LIABILITY ANALYST Narrative [facility] - 05/23/2024 4:21 PM LIABILITY ANALYST The change in procalcitonin (PCT) concentration over [...] Change in Procalcitonin Calculator is available at [email or web address] If clinical picture has not improved and PCT remains high, reevaluate and consider treatment failure or other causes. Mitchel De MD LAB - CHEMISTRY ORDE AMBROSIO Performing Organization Address [facility] Co de Phone Number [address] [address], [facility] [phone] * SYPHILIS ANTIBODY CASCADING REFLEX (05/23/2024 3:06 PM LIABILITY ANALYST) Only the most recent of2 resultswithin the time period is included. Pathologist [facility] Treponema pallidum Antibody Non-react grady Non-react grady 05/23/2024 3:59 PM LIABILITY ANALYST [facility] Comment: No Laboratory evidence of syphilis infection. Note: Circulating antibodies may be low or undetectable in early infection. If recent exposure is suspected, re-draw sample in 2-4 weeks and repeat testing. Blood BLOOD SPECIMEN / Unknown Lab Venipuncture / Unknown 05/23/2024 3:06 PM LIABILITY ANALYST 05/23/2024 3:17 PM LIABILITY ANALYST Mitchel De MD LAB - SEROLOGY ORDER GERALDO Performing Organization Address [facility]/ZIP Co de Phone Number [address] [address], [facility] [phone] * (ABNORMAL) URINALYSIS REFLEX TO MICROSCOPIC NO CULTURE (05/23/2024 11:05 AM LIABILITY ANALYST) Color UA [place](A) Straw, Yellow 05/23/2024 3:42 PM LIABILITY ANALYST [facility] Clarity UA Slt Cloudy(A) Clear 05/23/2024 3:42 PM [facility] Specific [place] UA 1.024 1.005 - 1.030 05/23/2024 3:42 PM [facility] Comment: Specific gravity results confirmed by refractometer. This is a corrected result. Previous result was >=1.030 on 05/23/2024 at 1129 LIABILITY ANALYST pH UA 5.5 5.0 - 8.0 pH 05/23/2024 3:42 PM [facility] Protein UA Negative Negative 05/23/2024 3:42 PM [facility] Glucose UA Negative Negative 05/23/2024 3:42 PM [facility] Ketone UA Trace(A) Negative 05/23/2024 3:42 PM [facility] Bilirubin UA 1+(A) Negative 05/23/2024 3:42 PM [facility] Comment:Urine Bilirubin resu lt confirmed by manual Ictotest. Blood UA Negative Negative 05/23/2024 3:42 PM [facility] Nitrite UA Positive(A) Negative 05/23/2024 3:42 PM [facility] Leukocyte Esterase Negative Negative 05/23/2024 3:42 PM [facility] Urobilinogen UA Negative Negative mg/dL 05/23/2024 3:42 PM [facility] RBC UA 6-10(A) None Seen, 0-2, 3-5 /HPF 05/23/2024 3:42 PM [facility] WBC UA 11-20(A) None Seen, 0-5 /HPF 05/23/2024 3:42 PM [facility] Bacteria UA 1+(A) None /HPF 05/23/2024 3:42 PM [facility] Yeast Budding UA Moderate(A) None /HPF 025 3:42 PM [facility] Squamous Epithelial Cells UA 3-5 None Seen, 0-2, 3-5 /HPF 05/23/2024 3:42 PM [facility] Mucus UA 4+ /LPF 05/23/2024 3:42 PM [facility] Hyaline Casts UA 3-5(A) None Seen, 0-2 /LPF 05/23/2024 3:42 PM [facility] Urine URINE SPECIMEN OBTAINED BY CLEAN CATCH PROCEDURE / Unknown Collection / Unknown 05/23/2024 11:05 AM LIABILITY ANALYST 05/23/2024 11:08 AM LIABILITY ANALYST Narrative [facility] - 05/23/2024 3:42 PM LIABILITY ANALYST Mitchel De MD LAB - URINALYSIS ORD ERABLES [facility] [address] [place] [address], [place] [phone] * (ABNORMAL) VITAMIN B12 (05/23/2024 6:20 AM LIABILITY ANALYST) Only the most recent of2 resultswithin the time period is included. Vitamin B12 >2,000(H) 213 - 816 pg/mL 05/23/2024 10:40 AM LIABILITY ANALYST [facility] Blood BLOOD SPECIMEN / Unknown Venipuncture / Unknown 05/23/2024 6:20 AM LIABILITY ANALYST 05/23/2024 6:45 AM LIABILITY ANALYST Mitchel De MD LAB - CHEMISTRY ORDE RABLES [facility] [address] [place] [address], [place] [phone] * CT Head Wo Contrast (05/19/2024 10:03 AM LIABILITY ANALYST) Anatomical Region Laterality Modality Head Computed Tomogra phy 05/19/2024 10:2 7 AM LIABILITY ANALYST Impressions 05/19/2024 10:31 AM LIABILITY ANALYST IMPRESSION: 1. No acute intracranial process. 2. Chronic small vessel ischemic disease of the brain with cerebral volume loss. > Interpreting Provider: Albert Xiong MD on 05/19/2024 10:31 AM Narrative 05/19/2024 10:31 AM LIABILITY ANALYST PROCEDURE: CT HEAD WO CONTRAST, DATE/TIME OF EXAM: 05/19/2024 10:05 AM, LOCATION [facility] INDICATION: G93.40: Encephalopathy, unspecified type [...] DATE/TIME OF EXAM: 05/19/2024 10:05 AM, LOCATION [facility] INDICATION: G93.40: Encephalopathy, unspecified type [...] (ABNORMAL) HGB HCT PANEL (05/18/2024 12:26 PM LIABILITY ANALYST) Hemoglobin 16.6(H) 11.9 - 15.8 g/dL 05/18/2024 12:52 PM LIABILITY ANALYST [facility] Hematocrit 50.3(H) 34.8 - 46.1 % 05/18/2024 12:52 PM LIABILITY ANALYST [facility] Blood BLOOD SPECIMEN / Unknown Lab Venipuncture / Unknown 05/18/2024 12:26 PM LIABILITY ANALYST 05/18/2024 12:48 PM LIABILITY ANALYST Mitchel De MD LAB - HEMATOLOGY ORD ERABLES [address] [address], [facility] [phone] * CK BLOOD (05/18/2024 12:26 PM LIABILITY ANALYST) CK Total 30 30 - 200 U/L 05/18/2024 1:21 PM LIABILITY ANALYST [facility] Blood BLOOD SPECIMEN / Unknown Lab Venipuncture / Unknown 05/18/2024 12:26 PM LIABILITY ANALYST 05/18/2024 12:53 PM LIABILITY ANALYST Mitchel De MD LAB - CHEMISTRY ORDE RABLES [address] [address], [place] [phone] * XR Abdomen Kub Portable (05/18/2024 10:38 AM LIABILITY ANALYST) Only the most recent of4 resultswithin the time period is included. Anatomical Region Laterality Modality Abdomen Digital Radiogra phy 05/18/2024 11:5 5 AM LIABILITY ANALYST Narrative 05/18/2024 5:41 PM LIABILITY ANALYST PROCEDURE: XR ABDOMEN KUB PORTABLE DATE/TIME OF EXAM: 05/18/2024 10:39 AM Indication: R63.8: Alteration in nutrition associated with tube feeding Additional History: COMPARISON: Abdominal x-ray 05/12/2024 FINDINGS/IMPRESSION: Weighted tip feeding tube courses below the diaphragm and terminates in the gastric fundus, mildly retracted compared to prior abdominal x-ray. Report dictated by Milad Perales MD (residential lawn specialist). Mckenna Aly MD have personally reviewed and [...] Report dictated by Milad Perales MD (residential lawn specialist). Mckenna Aly MD have personally reviewed and interpreted this examination/study. > Interpreting Provider: Mckenna Alva MD on 05/18/2024 5:41 PM Mitchel De MD DIAGNOSTIC IMAGING O RDERABLES * XR Chest 1Vw Portable (05/18/2024 4:33 AM LIABILITY ANALYST) Only the most recent of6 resultswithin the time period is included. Anatomical Region Laterality Modality Chest Digital Radiogra phy 05/18/2024 1:20 PM LIABILITY ANALYST Narrative 05/19/2024 12:31 AM LIABILITY ANALYST PROCEDURE: XR CHEST 1VW PORTABLE, DATE/TIME OF EXAM: 05/18/2024 4:33 AM, LOCATION [facility] INDICATION: J96.01: Acute respiratory failure [...] normal. > Dictated by ROHITH Adan (residential lawn specialist). Celestine Aly MD have personally reviewed and interpreted this examination/study. > Interpreting Provider: Celestien Ro MD on 05/19/2024 12:31 AM Procedure Note Celestine Ro MD - 05/19/2024 PROCEDURE: XR CHEST 1VW PORTABLE, DATE/TIME OF EXAM: 05/18/2024 4:33 AM, LOCATION [facility] INDICATION: J96.01: Acute respiratory failure [...] normal. > Dictated by ROHITH Adan (residential lawn specialist). Celestine Aly MD have personally reviewed and interpreted this examination/study. > Interpreting Provider: Celestine Ro MD on 05/19/2024 12:31 AM Mitchel De MD DIAGNOSTIC IMAGING O RDERABLES * EKG 12-LEAD (05/16/2024 5:03 PM LIABILITY ANALYST) Only the most recent of2 resultswithin the time period is included. Ventricular Rate 92 BPM [facility] MUSE Atrial Rate 92 BPM [facility] MUSE P-R Interval 148 ms [facility]USE QRS Duration ms 78 ms [facility] MUSE Q-T Interval ms 392 ms [facility] MUSE QTC Calculation (Bezet) 484 ms [facility] MUSE Calculated P [place] 46 degrees [facility] MUSE Calculated R [place] 30 degrees [facility] MUSE Calculated T [place] 12 degrees [facility] MUSE Interpretation EKG NORMAL SINUS RHYTHM PROLONGED QT ABNORMAL ECG WHEN COMPARED WITH ECG OF 13-MAY-2024 06:43, NO SIGNIFICANT CHANGE WAS FOUND Confirmed by EMIL RIVERA MD ([id number]) on 05/18/2024 2:55:51 PM [facility] MUSE 05/16/2024 5:03 PM LIABILITY ANALYST 05/18/2024 2:55 PM LIABILITY ANALYST Nuha Segal MD ECG ORDERABLES [facility] MUSE * AMMONIA (05/16/2024 4:41 PM LIABILITY ANALYST) Only the most recent of2 resultswithin the time period is included. Ammonia 49 <=72 umol/L 05/16/2024 5:02 PM LIABILITY ANALYST [facility] Blood BLOOD SPECIMEN / Unknown Venipuncture / Unknown 05/16/2024 4:41 PM LIABILITY ANALYST 05/16/2024 5:02 PM LIABILITY ANALYST Nuha Segal MD LAB - CHEMISTRY ORDE RABLES Performing Organization Address City/[facility]/ZIP Co de Phone Number [facility] [address] [place] [address], [facility] [phone] * (ABNORMAL) BLOOD GASES ART + COOX PANEL (05/16/2024 4:23 PM LIABILITY ANALYST) Only the most recent of6 resultswithin the time period is included. pH Arterial 7.43 7.35 - 7.45 pH 05/16/2024 4:38 PM [facility] pO2 Arterial 133(H) 80 - 100 mmHg 05/16/2024 4:38 PM [facility] pCO2 Arterial 34(L) 35 - 45 mmHg 4:38 PM [facility] HCO3 Arterial 22.6 20.0 - 30.0 mmol/L 05/16/2024 4:38 PM [facility] BE Arterial -0.9 -2.0 - 2.0 mmol/L 05/16/2024 4:38 PM [facility] Oxyhemoglobin Arterial 96.9 % 05/16/2024 4:38 PM [facility] Dexoyhemoglobin (HHB) % <1.0 % 05/16/2024 4:38 PM [facility] Methemoglobin <0.8 0.0 - 2.0 % 05/16/2024 4:38 PM [facility] Carboxyhemoglobin 2.1(H) 0.0 - 2.0 % 2023 4:38 PM [facility] O2 Content Arterial 23.9 Interpret within clinical context ml/dL 05/16/2024 4:38 PM [facility] Hemoglobin by COOX 17.4(H) 12.0 - 15.6 g/dL 05/16/2024 4:38 PM [facility] O2 Saturation Arterial 100 90 - 100 % 05/16/2024 4:38 PM [facility] FI O2 Arterial 100.0 % 05/16/2024 4:38 PM [facility] Blood, arterial ARTERIAL BLOOD SPECIMEN / Unknown Arterial Puncture / Unknown 05/16/2024 4:23 PM LIABILITY ANALYST 05/16/2024 4:28 PM [facility] - 05/16/2024 4:38 PM [facility] Carboxyhemoglobin Normal Concentration: Non-smokers: 0-2%; Smokers: 0-9%; Toxic: >20% Nuha Segal MD LAB - BLOOD GASES OR DERABLES [facility] [address] [place] [address], [facility] [phone] * (ABNORMAL) BASIC METABOLIC PANEL (CALCIUM TOTAL) (05/16/2024 4:12 PM LIABILITY ANALYST) BUN 21 7 - 26 mg/dL 05/16/2024 5:16 PM [facility] Creatinine 0.70 0.56 - 0.96 mg/dL 05/16/2024 5:16 PM [facility] Sodium 148(H) 136 - 145 mmol/L 05/16/2024 5:16 PM [facility] Potassium 3.8 3.5 - 4.5 mmol/L 05/16/2024 5:16 PM [facility] Chloride 118(H) 98 - 107 mmol/L 05/16/2024 5:16 PM [facility] CO2 20(L) 22 - 29 mmol/L 05/16/2024 5:16 PM [facility] Glucose 148(H) 70 - 99 mg/dL 05/16/2024 5:16 PM [facility] Calcium 9.9 8.4 - 10.2 mg/dL 05/16/2024 5:16 PM [facility] Anion Gap 10 6 - 16 05/16/2024 5:16 PM [facility] BUN/Creatinine Ratio 30(H) 7 - 23 05/16/2024 5:16 PM [facility] Osmolality Calculated 312(H) 275 - 295 mOsm/kg 05/16/2024 5:16 PM [facility] eGFR by CKD-EPI >90 >=90 mL/min/1.7 3 m2 05/16/2024 5:16 PM [facility] Blood BLOOD SPECIMEN / Unknown Lab Venipuncture / Unknown 05/16/2024 4:12 PM LIABILITY ANALYST 05/16/2024 4:30 PM LIABILITY ANALYST Nuha Segal MD LAB - CHEMISTRY NADIA VALENTE [facility] [address] [place] [address], [place] [phone] * PTT [facility] (05/16/2024 6:20 AM LIABILITY ANALYST) Only the most recent of3 resultswithin the time period is included. APTT 34.8 23.0 - 38.4 Seconds 05/16/2024 6:59 AM [facility] Comment:Suggested therapeuti c range for full dose I.V. unfractionated heparin therapy for venous thromboembolism is 71 to 109 seconds. Blood BLOOD SPECIMEN / Unknown Lab Venipuncture / Unknown 05/16/2024 6:20 AM LIABILITY ANALYST 05/16/2024 6:34 AM LIABILITY ANALYST Hiren Matias MD LAB - COAGULATION OR DERABLES [facility] [address] [place] [address], [place] [phone] * FERRITIN (05/14/2024 4:05 PM LIABILITY ANALYST) Ferritin 534 ng/mL 05/14/2024 5:13 PM LIABILITY ANALYST [facility] Blood BLOOD SPECIMEN / Unknown Lab Venipuncture / Unknown 05/14/2024 4:05 PM LIABILITY ANALYST 05/14/2024 4:11 PM LIABILITY ANALYST Hiren Matias MD LAB - CHEMISTRY NADIA VALENTE Performing Organization Address City/[facility]/ZIP Co de Phone Number [facility] [address] [place] [address], [facility] [phone] * MRSA DNA PCR (05/14/2024 2:47 PM LIABILITY ANALYST) Pathologist [facility] MRSA DNA by PCR Not detected Not detected 05/14/2024 7:24 PM LIABILITY ANALYST [facility] Microbiology SPECIMEN FROM NASAL FOSSAE / Unknown Collection / Unknown 05/14/2024 2:47 PM LIABILITY ANALYST 05/14/2024 2:51 PM LIABILITY ANALYST Narrative [facility] - 05/14/2024 7:24 PM LIABILITY ANALYST Methicillin-resistant Staphylococcus aureus (MRSA) DNA is not detected (presumed not colonized with MRSA). Jun Allen MD LAB - MICROBIOLOGY O RDERAFRANCES Performing Organization Address City/[facility]/ZIP Co de Phone Number [facility] [address] [place] [address], [facility] [phone] * (ABNORMAL) BLOOD GASES PAT + COOX PANEL (05/14/2024 2:46 PM LIABILITY ANALYST) Pathologist [facility] pH Venous 7.51(H) 7.32 - 7.42 pH 05/14/2024 2:56 PM LIABILITY ANALYST [facility] pO2 Venous 53(H) 35 - 40 mmHg 05/14/2024 2:56 PM LIABILITY ANALYST [facility] pCO2 Venous 29(L) 40 - 50 mmHg 05/14/2024 2:56 PM [facility] HCO3 Venous 23.1 20 - 30 mmol/L 05/14/2024 2:56 PM [facility] Base Excess Venous 1.2 -2.0 - 2.0 mmol/L 05/14/2024 2:56 PM [facility] Oxyhemoglobin Venous 81.8 % 04/18 2:56 PM [facility] Deoxyhemoglobin (HHB) Venous % 15.4 % 05/14/2024 2:56 PM [facility] Methemoglobin 1.1 0.0 - 2.0 % 05/14/2024 2:56 PM [facility] Carboxyhemoglobin 1.7 0.0 - 2.0 % 2023 2:56 PM [facility] O2 Content Venous 17.2 Interpret within clinical context ml/dL 05/14/2024 2:56 PM [facility] Hemoglobin by COOX 15.0 g/dL 2023 2:56 PM [facility] O2 Saturation Venous 84 >=70 % 04/18 2:56 PM [facility] FI O2 Mixed Venous 36.0 % 2023 2:56 PM [facility] Blood BLOOD SPECIMEN / Unknown Venipuncture / Unknown 05/14/2024 2:46 PM LIABILITY ANALYST 05/14/2024 2:51 PM LIABILITY ANALYST Narrative [facility] - 05/14/2024 2:56 PM LIABILITY ANALYST Carboxyhemoglobin Normal Concentration: Non-smokers: 0-2%; Smokers: 0-9%; Toxic: >20% Nuha Segal MD LAB - BLOOD GASES OR DERABLES [address] [address], [facility] [phone] * (ABNORMAL) BILIRUBIN DIRECT (05/14/2024 6:23 AM LIABILITY ANALYST) Bilirubin Conjugated 1.4(H) 0.1 - 0.5 mg/dL 05/14/2024 7:16 AM [facility] Blood BLOOD SPECIMEN / Unknown Lab Venipuncture / Unknown 05/14/2024 6:23 AM LIABILITY ANALYST 05/14/2024 6:42 AM LIABILITY ANALYST Hiren Matias MD LAB - CHEMISTRY NADIA VALENTE [address] [place] [address], [facility] [phone] * CULTURE SPUTUM+GRAM STAIN (05/11/2024 1:48 PM LIABILITY ANALYST) Only the most recent of2 resultswithin the time period is included. Culture Rare normal oropharyngeal catarino SAURABH 05/13/2024 10:26 AM [facility]CRO[facility] Gram Stain Light Polymorphonuclear cells 05/13/2024 10:26 AM [facility]CRO[facility] Gram Stain No organisms seen 024 10:26 AM [facility]CRO[facility] Microbiology SPUTUM / Unknown Collection / Unknown 05/11/2024 1:48 PM LIABILITY ANALYST 05/11/2024 2:03 PM LIABILITY ANALYST Hiren Matias MD LAB - [facility]Y [facility] [address] [place] [address], [facility] [phone] * (ABNORMAL) DIFFERENTIAL MANUAL (05/06/2024 12:01 AM LIABILITY ANALYST) Only the most recent of3 resultswithin the time period is included. Neutrophil % 60 41 - 74 % 05/06/2024 2:01 AM [facility] Lymphocyte % 18 17 - 47 % 05/06/2024 2:01 AM [facility] Monocyte % 18(H) 3 - 11 % 05/06/2024 2:01 AM [facility] Eosinophil % 3 0 - 7 % 05/06/2024 2:01 AM [facility] Basophil % 1 0 - 2 % 05/06/2024 2:01 AM [facility] Neutrophil Absolute 4.86 1.60 - 7.50 x10E9/L 05/06/2024 2:01 AM [facility] Lymphocyte Absolute 1.46 1.00 - 4.40 x10E9/L 05/06/2024 2:01 AM [facility] Monocyte Absolute 1.46(H) 0.15 - 1.00 x10E9/L 05/06/2024 2:01 AM [facility] Eosinophil Absolute 0.24 0.00 - 0.60 x10E9/L 05/06/2024 2:01 AM [facility] Basophil Absolute 0.08 0.00 - 0.13 x10E9/L 05/06/2024 2:01 AM [facility] RBC Morphology REVIEWED 05/06/2024 2:01 AM [facility] Macrocytosis MODERATE(A) (none) 05/06/2024 2:01 AM [facility] Polychromatic Cells MODERATE(A) (none) 05/06/2024 2:01 AM [facility] Schistocytes FEW(A) (none) 05/06/2024 2:01 AM [facility] Blood BLOOD SPECIMEN / Unknown Venipuncture / Unknown 05/06/2024 12:01 AM LIABILITY ANALYST 05/06/2024 12:39 AM LIABILITY ANALYST Jun Allen MD LAB - HEMATOLOGY ORD ERABLES [address] [address], [place] [phone] * TRIGLYCERIDES BLOOD (05/05/2024 12:43 AM LIABILITY ANALYST) Triglycerides 102 <150 mg/dL 05/05/2024 1:20 AM [facility] Comment: ATP III Classification of Triglycerides: <150 mg/dL: Normal 150 - 199 mg/dL: Borderline High 200 - 400 mg/dL: High >500 mg/dL: Very High Blood BLOOD SPECIMEN / Unknown Venipuncture / Unknown 05/05/2024 12:43 AM LIABILITY ANALYST 05/05/2024 12:52 AM LIABILITY ANALYST Jun Allen MD LAB - CHEMISTRY ORDE RABJEREL [address] [address], [place] [phone] * US Abdomen Ltd W Comp Doppler (05/04/2024 4:11 PM LIABILITY ANALYST) Anatomical Region Laterality Modality Abdomen Ultrasound 05/04/2024 3:57 PM LIABILITY ANALYST Impressions 05/04/2024 5:16 PM LIABILITY ANALYST IMPRESSION: 1.Hepatic cirrhosis without discrete hepatic lesion. [...] > Dictated by Calvin Schroeder MD (residential lawn specialist). I, Darryl Ayala MD have personally reviewed and interpreted this examination/study. > Interpreting Provider: Darryl Ayala MD on 05/04/2024 5:16 PM Narrative 05/04/2024 5:16 PM LIABILITY ANALYST PROCEDURE: US ABDOMEN LTD W COMP DOPPLER, DATE/TIME OF EXAM: 05/04/2024 2:45 PM, LOCATION [facility] INDICATION: K72.90: Decompensated cirrhosis (HCC) [...] DOPPLER, DATE/TIME OF EXAM:05/04/2024 2:45 PM, LOCATION [facility] INDICATION: K72.90: Decompensated cirrhosis (HCC) [...] > Dictated by Calvin Schroeder MD (residential lawn specialist). I, Darryl Ayala MD have personally reviewed and interpreted this examination/study. > Interpreting Provider: Darryl Ayala MD on 05/04/2024 5:16 PM Osmani Myers MD US ORDERABLES * (ABNORMAL) IRON + TRANSFERRIN PANEL (05/03/2024 6:45 PM LIABILITY ANALYST) Iron 292 ug/dL 05/03/2024 11:55 PM [facility] Transferrin 97(L) 174 - 382 mg/dL 05/03/2024 11:55 PM [facility] Transferrin Saturation % 100(H) 16 - 50 % 05/03/2024 11:55 PM [facility] TIBC Calculated 121 ug/dL 11:55 PM [facility] Blood BLOOD SPECIMEN / Unknown Venipuncture / Unknown 05/03/2024 6:45 PM LIABILITY ANALYST 05/03/2024 6:47 PM LIABILITY ANALYST Osmani Myers MD LAB - CHEMISTRY NADIA VALENTE [facility] Organization Address City/State/ZIP Co de Phone Number [facility] [address] [place] [address], [facility] [phone] * (ABNORMAL) URINE MICROSCOPIC ONLY REFLEX TO CULTURE (05/03/2024 2:49 PM LIABILITY ANALYST) Reflex Status Culture to follow 05/03/2024 3:26 PM [facility] RBC UA 51-100(A) None Seen, 0-2, 3-5 /HPF 05/03/2024 3:26 PM [facility] WBC UA 21-50(A) None Seen, 0-5 /HPF 05/03/2024 3:26 PM [facility] Squamous Epithelial Cells UA 0-2 None Seen, 0-2, 3-5 /HPF 05/03/2024 3:26 PM [facility] Mucus UA 2+ /LPF 05/03/2024 3:26 PM [facility] Hyaline Casts UA 11-20(A) None Seen, 0-2 /LPF 05/03/2024 3:26 PM [facility] Urine URINE SPECIMEN OBTAINED BY CLEAN CATCH PROCEDURE / Unknown Collection / Unknown 05/03/2024 2:49 PM LIABILITY ANALYST 05/03/2024 2:54 PM LIABILITY ANALYST [facility] - 05/03/2024 3:26 PM LIABILITY ANALYST Jun Allen MD LAB - URINALYSIS ORD ERABLES [facility] [address] [place] [address], [facility] [phone] * (ABNORMAL) URINALYSIS REFLEX MICROSCOPIC REFLEX CULTURE (05/03/2024 2:49 PM LIABILITY ANALYST) Color UA Yellow Straw, Yellow 05/03/2024 3:23 PM [facility] Clarity UA Slt Cloudy(A) Clear 05/03/2024 3:23 PM [facility] Specific [facility] UA 1.011 1.005 - 1.030 05/03/2024 3:23 PM [facility] pH UA 5.0 5.0 - 8.0 pH 05/03/2024 3:23 PM [facility] Protein UA Negative Negative 05/03/2024 3:23 PM [facility] Glucose UA Negative Negative 05/03/2024 3:23 PM [facility] Ketone UA Negative Negative 05/03/2024 3:23 PM [facility] Bilirubin UA Negative Negative 05/03/2024 3:23 PM [facility] Blood UA 1+(A) Negative 05/03/2024 3:23 PM [facility] Nitrite UA Negative Negative 05/03/2024 3:23 PM [facility] Leukocyte Esterase Negative Negative 05/03/2024 3:23 PM [facility] Urobilinogen UA Negative Negative mg/dL 05/03/2024 3:23 PM [facility] Urine URINE SPECIMEN OBTAINED BY CLEAN CATCH PROCEDURE / Unknown Collection / Unknown 05/03/2024 2:49 PM LIABILITY ANALYST 05/03/2024 2:54 PM LIABILITY ANALYST Narrative [facility] - 05/03/2024 3:23 PM LIABILITY ANALYST Jun Allen MD LAB - URINALYSIS ORD ERABLES [facility] [address] [place] [address], [facility] [phone] * STREP PNEUMONIAE ANTIGEN URINE (05/03/2024 2:49 PM LIABILITY ANALYST) Streptococcus pneumoniae Antigen Urine Negative Negative 05/04/2024 8:42 AM LIABILITY ANALYST [facility] Urine URINE / Unknown Collection / Unknown 05/03/2024 2:49 PM LIABILITY ANALYST 05/03/2024 2:54 PM LIABILITY ANALYST Narrative [facility] - 05/04/2024 8:42 AM LIABILITY ANALYST Patients who have received the Streptococcus pneumoniae [...] - MICROBIOL OGY ORDERABLES Performing Organization Address [facility] Co de Phone Number [facility] [address] [place] [address], [facility] [phone] * LEGIONELLA ANTIGEN URINE (05/03/2024 2:49 PM LIABILITY ANALYST) Pathologist [facility] Legionella Antigen Urine Negative Negative 05/04/2024 8:13 AM [facility] Urine URINE / Unknown Collection / Unknown 05/03/2024 2:49 PM LIABILITY ANALYST 05/03/2024 2:54 PM LIABILITY ANALYST Narrative [facility] - 05/04/2024 8:13 AM LIABILITY ANALYST This assay detects Legionella pneumophila serogroup one (1) antigen. A negative test result does not rule out the possibility of Legionella infection due to other serogroups or species of Legionella. A positive result may indicate a recent or remote infection with serogroup 1. Eder Bravo MD LAB - MICROBIOL OGY ORDERABLES Performing Organization Address [facility] Co de Phone Number [facility] [address] [place] [address], [facility] [phone] * CULTURE URINE (05/03/2024 2:49 PM LIABILITY ANALYST) Pathologist [facility] Culture Urine No growth (<100 CFU/mL) SAURABH 05/05/2024 12:31 AM LIABILITY ANALYST [facility] Urine URINE SPECIMEN OBTAINED BY CLEAN CATCH PROCEDURE / Unknown Collection / Unknown 05/03/2024 2:49 PM LIABILITY ANALYST 05/03/2024 3:26 PM LIABILITY ANALYST Jun Allen MD LAB - MICROBIOLOGY O RDERABLES [facility] [address] [place], [place] [address], [facility] [phone] * ECHO COMPLETE W CONTRAST W BUBBLE STUDY (05/03/2024 2:00 PM LIABILITY ANALYST) RVOT diam Doppler 2.642 cm [facility] CV [...] Region Laterality Modality Ultrasound 05/03/2024 1:20 PM LIABILITY ANALYST Narrative 05/03/2024 9:47 PM LIABILITY ANALYST Summary * Findings consistent with elevated venous [...] 1:20 PM Patient Status: I/P Study Site: [facility] Primary Location: [facility] EStudy Info Technical Quality: Fair Exam Type: [...] Provider: Jun Allen Attending Physician: Jun Allen [employer] Officer: Willard Wallis Left Ventricle The left ventricle [...] 1:20 PM Patient Status: I/P Study Site: [facility] Primary Location: [facility] EStudy Info Technical Quality: Fair Exam Type: [...] Provider: Jun Allen Attending Physician: Jun Allen [employer] Officer: Willard Wallis Left Ventricle The left ventricle [...] CUPID * CULTURE BLOOD (05/03/2024 12:24 PM LIABILITY ANALYST) Only the most recent of2 resultswithin the time period is included. Culture No growth day 5 SAURABH 05/08/2024 4:31 PM LIABILITY ANALYST [facility] Blood PERIPHERAL BLOOD / Unknown Venipuncture / Unknown 05/03/2024 12:24 PM LIABILITY ANALYST 05/03/2024 1:00 PM LIABILITY ANALYST Jun Allen MD LAB - MICROBIOLOGY O RDERABLES Performing Organization Address City/[facility]/ZIP Co de Phone Number [facility] [address] [place] [address], [facility] [phone] * LACTIC ACID BLOOD (05/03/2024 12:24 PM LIABILITY ANALYST) Only the most recent of4 resultswithin the time period is included. Pathologist [facility] Lactic Acid-Stat 1.6 <=2.0 mmol/L 05/03/2024 1:03 PM LIABILITY ANALYST [facility] Blood BLOOD SPECIMEN / Unknown Venipuncture / Unknown 05/03/2024 12:24 PM LIABILITY ANALYST 05/03/2024 12:32 PM LIABILITY ANALYST Jun Allen MD LAB - CHEMISTRY NADIA VALENTE Performing Organization Address [facility] Co de Phone Number [address] [address], [place] [phone] * HIV-1 HIV-2 ANTIBODY + HIV P24 AG PANEL (05/03/2024 12:58 AM LIABILITY ANALYST) [facility] HIV Antigen/Antibod y 1 & 2 Non-reacti ve Non-react grady 05/03/2024 2:15 AM [facility] Comment:No Laboratory eviden ce of HIV infection. Blood BLOOD SPECIMEN / Unknown Venipuncture / Unknown 05/03/2024 12:58 AM LIABILITY ANALYST 05/03/2024 1:26 AM LIABILITY ANALYST Jun Allen MD LAB - CHEMISTRY NADIA VALENTE Performing Organization Address City/[facility]/ZIP Co de Phone Number [address] [address], [place] [phone] * HEMOGLOBIN A1C (05/03/2024 12:58 AM LIABILITY ANALYST) Pathologist [facility] Hemoglobin A1c 5.0 <=5.6 % 05/03/2024 8:56 AM [facility] Estimated Average Glucose 97 mg/dL 05/03/2024 8:56 AM [facility] Comment: HbA1c Interpretation: Normal : < 5.7% Pre-diabetes: 5.7-6.4% Diabetes: Equal to or greater than 6.5% Test results diagnostic of diabetes should be repeated for confirmation. Treatment target values recommended by ADA and other clinical organizations should be used to evaluate metabolic control in patients. Reference: [place] [employer], Standards of Care in Diabetes -2020 In patients 70 years and older consider HbA1c target range of 7.0-7.5% (Reference: Jaime Adair et al. JAMDA. 2012) The Sebia assay for the measurement of HbA1c is a National Glycohemoglobin Standardization Program (NGSP) certified method. Blood BLOOD SPECIMEN / Unknown Venipuncture / Unknown 05/03/2024 12:58 AM LIABILITY ANALYST 05/03/2024 1:57 AM LIABILITY ANALYST Jun Allen MD LAB - CHEMISTRY NADIA VALENTE [facility] Organization Address City/State/ZIP Co de Phone Number [facility] [address] [address], [facility] [phone] * RESPIRATORY PANEL WITH SARS-COV-2 BY PCR ([facility]) (05/02/2024 10:30 PM LIABILITY ANALYST) Adenovirus PCR Not detected Not detected 05/03/2024 7:10 AM LIABILITY ANALYST [facility] Coronavirus 229E PCR Not detected Not detected 05/03/2024 7:10 AM [facility] Coronavirus HKU1 PCR Not detected Not detected 05/03/2024 7:10 AM [facility] Coronavirus NL63 PCR Not detected Not detected 05/03/2024 7:10 AM LIABILITY ANALYST [facility] Coronavirus OC43 PCR Not detected Not detected 05/03/2024 7:10 AM LIABILITY ANALYST [facility] COVID-19 PCR Not detected Not detected 05/03/2024 7:10 AM LIABILITY ANALYST [facility] Human Metapneumovirus PCR Not detected Not detected 05/03/2024 7:10 AM LIABILITY ANALYST [facility] Human Rhinovirus/Enterov irus PCR Not detected Not detected 05/03/2024 7:10 AM LIABILITY ANALYST [facility] Influenza A PCR Not detected Not detected 05/03/2024 7:10 AM LIABILITY ANALYST [facility] Influenza B PCR Not detected Not detected 05/03/2024 7:10 AM LIABILITY ANALYST [facility] Parainfluenza Virus 1 PCR Not detected Not detected 05/03/2024 7:10 AM LIABILITY ANALYST [facility] Parainfluenza Virus 2 PCR Not detected Not detected 05/03/2024 7:10 AM LIABILITY ANALYST [facility] Parainfluenza Virus 3 PCR Not detected Not detected 05/03/2024 7:10 AM LIABILITY ANALYST [facility] Parainfluenza Virus 4 PCR Not detected Not detected 05/03/2024 7:10 AM LIABILITY ANALYST [facility] Respiratory Syncytial Virus PCR Not detected Not detected 05/03/2024 7:10 AM LIABILITY ANALYST [facility] Bordetella parapertussis PCR Not detected Not detected 05/03/2024 7:10 AM LIABILITY ANALYST [facility] Bordetella pertussis PCR Not detected Not detected 05/03/2024 7:10 AM LIABILITY ANALYST [facility] Chlamydia pneumoniae PCR Not detected Not detected 05/03/2024 7:10 AM LIABILITY ANALYST [facility] Mycoplasma pneumoniae PCR Not detected Not detected 05/03/2024 7:10 AM LIABILITY ANALYST [facility] Microbiology SPECIMEN FROM NASOPHARYNGEAL STRUCTURE / Unknown Collection / Unknown 05/02/2024 10:30 PM LIABILITY ANALYST 05/03/2024 1:26 AM LIABILITY ANALYST Narrative [facility] - 05/03/2024 7:10 AM LIABILITY ANALYST This nucleic amplification assay has received FDA authorization via the [employer]. Jun Allen MD LAB - MICROBIOLOGY [facility] [address] [place] [address], [facility] [phone] * CULTURE MRSA (05/02/2024 10:30 PM LIABILITY ANALYST) Culture Negative for methicillin-resist ant Staphylococcus aureus (MRSA) SAURABH 05/04/2024 7:54 AM LIABILITY ANALYST [facility] Microbiology SPECIMEN FROM NASAL FOSSAE / Unknown Collection / Unknown 05/02/2024 10:30 PM LIABILITY ANALYST 05/03/2024 1:27 AM LIABILITY ANALYST Jun Allen MD LAB - MICROBIOLOGY [facility] [address] [place] [address], [facility] [phone] * VANCOMYCIN LEVEL RANDOM (05/02/2024 10:21 PM LIABILITY ANALYST) Pathologist [facility] Vancomycin Random 17.5 Therapeutic Ranges not established for random specimens ug/mL 05/02/2024 11:05 PM LIABILITY ANALYST [facility] Blood BLOOD SPECIMEN / Unknown Venipuncture / Unknown 05/02/2024 10:21 PM LIABILITY ANALYST 05/02/2024 10:32 PM LIABILITY ANALYST Narrative [facility] - 05/02/2024 11:05 PM LIABILITY ANALYST See institution protocol. Jun Allen MD LAB - CHEMISTRY NADIA VALENTE [facility] [address] [place] [address], [facility] [phone] * PHOSPHATIDYLETHANOL (PETH) (05/02/2024 9:14 PM LIABILITY ANALYST) [facility] PEth 16:0/18.1 (POPEth) 59 ng/mL 05/05/2024 3:22 PM LIABILITY ANALYST [facility] ([facility]) Comment: PEth 16:0/18:1 (POPEth) Less than 10 ng/mL............Not detected Less than 20 ng/mL............Abstinence or light alcohol consumption 20 - 200 ng/mL................Moderate alcohol consumption Greater than 200 ng/mL........Heavy alcohol consumption or chronic alcohol use (Reference: Rufino Rae and Jory Chavis 2018 J. Forensic Sci) PEth 16:0/18.2 (PLPEth) 13 ng/mL 05/05/2024 3:22 PM LIABILITY ANALYST [facility] ([facility]) Comment:Reference ranges are not well established. EER Peth See Note 05/05/2024 3:22 PM LIABILITY ANALYST [facility] ([facility]) Comment: Authorized individuals can access the [employer] Enhanced Report with an [employer] Connect account using the following link. Your local lab can assist you in obtaining the patient report if you don't have a Connect account. [email or web address] Interpretation PEth See Comment 05/05/2024 3:22 PM LIABILITY ANALYST [facility] ([facility]) Comment: Phosphatidylethanol (PEth) is a group [...] developed and its performance characteristics determined by [facility]. It has not been cleared or approved by the U.S. Food and Drug Administration. This test was performed in a CLIA-certified laboratory and is intended for clinical purposes. Performed By: [facility] [address] [place] [address] Professional Healthcare Representative: Giorgio Poole MD, PhD CLIA Number: [id number] Blood BLOOD SPECIMEN / Unknown Venipuncture / Unknown 05/02/2024 9:14 PM LIABILITY ANALYST 05/02/2024 10:05 PM LIABILITY ANALYST Jun Allen MD LAB - CHEMISTRY NADIA VALENTE [facility] ([facility]) [address] * SMOOTH MUSCLE ANTIBODY W REFLEX TITER (05/02/2024 9:14 PM LIABILITY ANALYST) F-Actin Antibody IgG 19 0 - 19 Units 05/05/2024 5:30 AM LIABILITY ANALYST [facility] ([facility]) Comment: If F-Actin (Smooth Muscle) Antibody, [...] suspicion for AIH is strong. Performed By: [facility] [address] [place] [address] Professional Healthcare Representative: Giorgio Poole MD, PhD CLIA Number: [id number] Blood BLOOD SPECIMEN / Unknown Venipuncture / Unknown 05/02/2024 9:14 PM LIABILITY ANALYST 05/02/2024 10:05 PM LIABILITY ANALYST Jun Allen MD LAB - SEROLOGY ORDER GERALDO [facility]) [address] [place] [address], [facility] * (ABNORMAL) MITOCHONDRIAL ANTIBODY SCREEN (05/02/2024 9:14 PM LIABILITY ANALYST) Mitochondrial M2 Antibody 47.6(H) 0.0 - 24.9 Units 05/05/2024 5:31 AM LIABILITY ANALYST [facility] ([facility]) Comment: REFERENCE INTERVAL: Mitochondrial (M2) Antibody, [...] does not rule out PBC. Performed By: [place] [address] Professional Healthcare Representative: Giorgio Poole MD, PhD CLIA Number: [id number] Blood BLOOD SPECIMEN / Unknown Venipuncture / Unknown 05/02/2024 9:14 PM LIABILITY ANALYST 05/02/2024 10:05 PM LIABILITY ANALYST Jun Allen MD LAB - CHEMISTRY NADIA VALENTE [facility] ([facility]) [address] [place] [address] * CERULOPLASMIN (05/02/2024 9:14 PM LIABILITY ANALYST) Pathologist [facility] Ceruloplasmin 22 20 - 60 mg/dL 05/02/2024 10:43 PM LIABILITY ANALYST [facility] Blood BLOOD SPECIMEN / Unknown Venipuncture / Unknown 05/02/2024 9:14 PM LIABILITY ANALYST 05/02/2024 10:05 PM LIABILITY ANALYST Jun Allen MD LAB - CHEMISTRY NADIA VALENTE Performing Organization Address City/[facility]/ZIP Co de Phone Number [facility] [address] [place] [address], [facility] [phone] * (ABNORMAL) B-TYPE NATRIURETIC PEPTIDE (05/02/2024 9:14 PM LIABILITY ANALYST) BNP 193(H) <100 pg/mL 05/02/2024 10:58 PM LIABILITY ANALYST [facility] Comment: A decision threshold of 100 [...] Unknown Venipuncture / Unknown 05/02/2024 9:14 PM LIABILITY ANALYST 05/02/2024 10:17 PM LIABILITY ANALYST Jun Allen MD LAB - CHEMISTRY NADIA VALENTE [facility] [address] [place] [address], [place] [phone] * TSH (05/02/2024 9:14 PM LIABILITY ANALYST) TSH 2.875 0.350 - 4.940 uIU/mL 05/03/2024 2:26 AM LIABILITY ANALYST [facility] Blood BLOOD SPECIMEN / Unknown Venipuncture / Unknown 05/02/2024 9:14 PM LIABILITY ANALYST 05/02/2024 10:17 PM LIABILITY ANALYST Jun Allen MD LAB - CHEMISTRY NADIA VALENTE [address] [address], [place] [phone] from Last 3 Months Advance Directives * Full Code (Latest Code Status on File) Date Activated Date Inactivated Comments 05/02/2024 9:07 PM 06/06/2024 4:40 PM
[2024-07-07 14:41] LABS: Basophils Percent Auto 0.5 % (0.2-1.2); Eosinophils Absolute Auto 0.1 K/mm3 (0-0.3); Eosinophils Percent Auto 1.8 % (0-4.4); Hematocrit 38.7 % (37.0-47.0); Hemoglobin 13.1 g/dL (12.0-15.0); Immature Granulocyte Absolute 0.05 K/mm3 (0.00-0.031); Immature Granulocyte Percent A 1.2 % (0-0.5); Immature Platelet Fraction Pct 2.7 % (0.9-11.2); Lymphocytes Absolute Auto 1.78 K/mm3 (0.9-3.2); Lymphocytes Percent Auto 41.1 % (18.3-44.2); Mean Corpuscular HGB Conc 33.9 g/dl (32-36); Mean Corpuscular Hemoglobin 33.4 pg (26-34); Mean Corpuscular Volume 98.7 fl (80-100); Mean Platelet Volume 11.2 fl (7.4-10.4); Monocytes Absolute Auto 0.7 K/mm3 (0.1-0.6); Monocytes Percent Auto 15.5 % (2.6-8.5); Neutrophils Absolute Auto 1.7 K/mm3 (1.3-6.7); Neutrophils Percent Auto 39.9 % (45.5-73.1); Platelet Count Result 86 k/mm3 (150-375); Red Blood Count 3.92 M/mm3 (4.2-5.4); Red Cell Distribution Width 16.1 % (11.5-14.5); White Blood Count 4.3 K/mm3 (4.5-10.0)
[2024-07-07 14:48] LABS: Alanine Aminotransferase 25 U/L (6-35); Albumin Level 3.5 g/dL (3.5-5.1); Alkaline Phosphatase 137 U/L (38-126); Anion Gap 10 mmol/L (4-12); Aspartate Amino Transferase 49 U/L (14-36); Bilirubin,Total 3.6 mg/dL (0.2-1.3); Blood Urea Nitrogen 6 mg/dL (7-17); Calcium 8.7 mg/dL (8.4-10.2); Carbon Dioxide 23 mmol/L (22-30); Chloride 104 mmol/L (98-107); Estimated CRCL calculation 99 ml/min; Estimated Glomerular Filt Rate > 60; Glucose 194 mg/dL (65-110); Potassium 3.1 mmol/L (3.4-5.0); Sodium 137 mmol/L (137-145)
[2024-07-07 14:51] LABS: Platelet Estimate Decreased (Adequate); Schistocytes None Seen
--- NOTE | 2024-07-07 14:53 | PC.NURSE ---
pt wanted to walk to the bathroom. pt vitals were stable with a pulse ox of 98% before walking to bathroom. when pt returned from the bathroom, pt was at 85% room air, 2L applied to pt and then O2 went up to 95%
[2024-07-07] MEDS: ALBUTEROL SULFATE NEB 2.5 MG/3 ML INH 15 MG INHALATION (15:07)
[2024-07-07] MEDS: IPRATROPIUM BR 0.02% INH SOLN 0.5 MG/2.5 ML VIAL 1.5 MG INHALATION (15:07)
[2024-07-07 15:13] LABS: Influenza A QL RT-PCR Negative (Negative); Influenza B QL RT-PCR Negative (Negative); RSV RNA, RT-PCR Negative (Negative); SARS-CoV-2 RNA PCR Negative (Negative)
--- NOTE | 2024-07-07 17:45 | ED_ITS ---
HPI - General Adult General Chief complaint: Shortness of Breath/Dyspnea Stated complaint: dyspnea Time Seen by Provider: 07/07/24 14:15 History of Present Illness HPI narrative: Patient is a 49-year-old female who presents ER with shortness of breath and hypoxia. She is currently rehabbing at [facility]. History of liver failure. She has been having a cough for the last 2 days and has increased shortness of breath. Patient had oxygen saturation of 80%. She is wheezing and coughing. No fevers or chills. Related Data Home Medications ?Medication ?Instructions ?Recorded ?Confirmed ?Last Taken ?Type Unable to Obtain Home Medications 04/30/24 04/30/24 Unknown History Allergies Allergy/AdvReac Type Severity Reaction Status Date / Time No Known Allergies Allergy Verified 07/07/24 14:29 Review of Systems 2 Review of Systems: All systems reviewed & are unremarkable except as noted in HPI and below Constitutional: Constitutional: Reports no additional constitutional complaints Cardiovascular: Cardiovascular: Reports no additional cardiovascular complaints Respiratory: Respiratory: Reports no additional respiratory complaints Gastrointestinal: Gastrointestinal: Reports no additional gastrointestinal complaints Musculoskeletal: Musculoskeletal: Reports no additional musculoskeletal complaints [facility] Past Medical History Medical History (Updated 07/07/24 @ 18:57 by Rex Bashir MD) Coagulopathy Atrial fibrillation with rapid ventricular response Elevated liver enzymes Hepatitis, alcoholic, acute Suicidal ideation Esophageal varices Diabetes mellitus Anxiety Panic attacks Chronic depression Chronic pancreatitis Chronic liver disease Surgical History Surgical History History of bilateral ligation of fallopian tubes History of gastrointestinal surgery For esophageal varices Family History Family History (Updated 04/26/24 @ 02:21 by Alicia Muniz DO) Other Unknown family medical history Social History Social History Social History: Homeless but per documentation going through a messy divorce Smoking status: Unknown if ever smoked Alcohol use details: Liquor Substance use: unknown Education: Trade/Vocational Certificate Spiritual care concerns: No Exam 2 Narrative: GENERAL: Chronically ill-appearing, well-nourished, and in no acute distress. HEAD: Normocephalic, atraumatic. EYES: PERRL and EOMI. Mild icterus of the sclera ENT: Mucous membranes moist. CHEST: Coarse expiratory wheezing throughout. No respiratory distress. HEART: Regular rate and rhythm. Normal peripheral pulses. ABDOMEN: Soft, nontender, nondistended. EXTREMITIES: Normal range of motion. No edema. SKIN: Warm, dry, mild jaundice. Numerous telangiectasias NEURO: Alert and oriented x3. PSYCH: Normal mood and affect. Course Course Emergency Course: Patient requiring O2 after nebulizer treatment. Still wheezing. Given Solu- Medrol. Admit for observation. Influenza negative. No pneumonia on imaging. Vital Signs Vital signs: Vital Signs Temperature 98.5 F 07/07/24 14:15 Pulse Rate 81 07/07/24 14:15 Respiratory Rate 24 H 07/07/24 14:15 Blood Pressure 151/69 H 07/07/24 14:15 Pulse Oximetry 97 07/07/24 14:15 Oxygen Delivery Room Air 07/07/24 14:15 Temperature 100.3 F H 07/07/24 17:54 Pulse Rate 95 07/07/24 17:54 Respiratory Rate 27 H 07/07/24 17:54 Blood Pressure 133/58 L 07/07/24 17:31 Pulse Oximetry 99 07/07/24 17:54 Oxygen Delivery Room Air 07/07/24 14:27 Medical Decision Making Vital Signs Vital Signs: Vital Signs Temperature 98.5 F 07/07/24 14:15 Pulse Rate 81 07/07/24 14:15 Respiratory Rate 24 H 07/07/24 14:15 Blood Pressure 151/69 H 07/07/24 14:15 Pulse Oximetry 97 07/07/24 14:15 Oxygen Delivery Room Air 07/07/24 14:15 Temperature 100.3 F H 07/07/24 17:54 Pulse Rate 95 07/07/24 17:54 Respiratory Rate 27 H 07/07/24 17:54 Blood Pressure 133/58 L 07/07/24 17:31 Pulse Oximetry 99 07/07/24 17:54 Oxygen Delivery Room Air 07/07/24 14:27 Lab Data 07/07/24 14:30 07/07/24 14:30 Labs: Lab Results 07/07/24 Range/Units 14:30 WBC 4.3 L (4.5-10.0) K/mm3 RBC 3.92 L (4.2-5.4) M/mm3 Hgb 13.1 (12.0-15.0) g/dL Hct 38.7 (37.0-47.0) % MCV 98.7 (80-100) fl MCH 33.4 (26-34) pg MCHC 33.9 (32-36) g/dl RDW 16.1 H (11.5-14.5) % Plt Count 86 L (150-375) k/mm3 MPV 11.2 H (7.4-10.4) fl Immature Gran % (Auto) 1.2 H (0-0.5) % Neut % (Auto) 39.9 L (45.5-73.1) % Lymph % (Auto) 41.1 (18.3-44.2) % [place] % (Auto) 15.5 H (2.6-8.5) % Eos % (Auto) 1.8 (0-4.4) % Baso % (Auto) 0.5 (0.2-1.2) % Lymph # (Auto) 1.78 (0.9-3.2) K/mm3 [place] # (Auto) 0.7 H (0.1-0.6) K/mm3 Eos # (Auto) 0.1 (0-0.3) K/mm3 Baso # (Auto) 0.0 (0.0-0.1) K/mm3 Abs Immat Gran (auto) 0.05 H (0.00-0.031) K/mm3 Absolute Neuts (auto) 1.7 (1.3-6.7) K/mm3 Absolute Nucleated RBC 0.000 (0.0-0.012) K/mm3 Band Neutrophils % Not Reportable Nucleated RBC % 0.0 (0.0-0.2) % Platelet Estimate Decreased (Adequate) % Immature Plt Fraction 2.7 (0.9-11.2) % Schistocytes None seen Sodium 137 (137-145) mmol/L Potassium 3.1 L (3.4-5.0) mmol/L Chloride 104 (98-107) mmol/L Carbon Dioxide 23 (22-30) mmol/L Anion Gap 10 (4-12) mmol/L BUN 6 L (7-17) mg/dL Creatinine 0.48 L (0.7-1.0) mg/dL Estim Creat Clear Calc 99 ml/min Estimated GFR > 60 (59 - ) Glucose 194 H (65-110) mg/dL Calcium 8.7 (8.4-10.2) mg/dL Total Bilirubin 3.6 H (0.2-1.3) mg/dL AST 49 H (14-36) U/L ALT 25 (6-35) U/L Alkaline Phosphatase 137 H (38-126) U/L Total Protein 7.0 (6.3-8.2) g/dL Albumin 3.5 (3.5-5.1) g/dL Influenza A (RT-PCR) Negative (Negative) Influenza B (RT-PCR) Negative (Negative) RSV (RT-PCR) Negative (Negative) SARS-CoV-2 RNA (RT-PCR) Negative (Negative) Imaging Data Radiologist's impression: ITS Impressions Chest X-Ray 07/07/24 15:05 IMPRESSION: 1. No acute cardiopulmonary disease. Discharge Plan Discharge Clinical Impression: COPD exacerbation, Hypoxia Patient Disposition: Still a Patient Condition: Stable Patient Language: Divehi Prescriptions: No Action Unable to Obtain Home Medications Follow-up/Referrals: PHYSICIAN NOT ON STAFF,NONSTAFF [Primary Care Provider] -
[2024-07-07] MEDS: methylPREDNISolone SOD SUCC 125 MG VIAL IV PUSH (18:16)
[2024-07-07] MEDS: ACETAMINOPHEN 500 MG TABLET 1000 MG PO (18:41)
--- NOTE | 2024-07-07 19:34 | PC.NURSE ---
1935-ATTEMPTED TO CALL MAURICIO PATTERSON (PATIENT'S DAUGHTER) PER PATIENT REQUEST. NO ANSWER AND NO IDENTIFIED NAME ON VOICEMAIL. NO MESSAGE LEFT. UPATE TO PATIENT.
--- NOTE | 2024-07-07 19:45 | PC.NURSE ---
1946-PATIENT'S DAUGHTER CALLED. PER PATIENT REQUEST, ADVISED DAUGHTER PATIENT WAS AT [facility] AND WAS BEING ADMITTED. MOTHER REQUESTS PATIENT NOT TO DRIVE TWO HOURS TO FACILITY AND MOTHER WILL CALL PATIENT LATER. DAUGHTER SAID THANK YOU. PATIENT WAS NOTIFIED I HAD SPOKEN WITH DAUGHTER AND DELIVERED PATIENT'S MESSAGE.
--- NOTE | 2024-07-07 19:52 | P.HP_ITS ---
H&P: HPI History of Present Illness Date/Time: 07/07/24 19:52 Chief Complaint: Hypoxia Narrative: 49 y/o F presents here with hypoxia and shortness of breath with PMH of atrial fibrillation, alcoholic hepatitis, esophageal varices, diabetes, anxiety, depression, chronic pancreatitis, chronic liver disease. The patient presents here from [place] via EMS for further evaluation of hypoxia, cough, and shortness of breath. The patient attended rehab today where they noticed her O2 saturation was in the 80s on room air. While in transport, the patient received 1 breathing treatment. EMS reported the patient had audible wheezing upon their arrival. She reports the current hypoxia was precipitated by URI symptoms for the past 5 days. Symptoms included a nonproductive cough, shortness of breath, wheezing, body aches, chills, diarrhea, and nausea without vomiting. She denies fever. Per patient, large percentage of residents her [facility] currently have Flu A. While in the ED, the patient was placed back on room air and O2 dropped to 86%. Now on supplemental O2. Denies history of asthma, smoking, or COPD. Initial VS at presentation: 98.5? F, HR 81, RR 24, 151/69, and 97% on RA. ED workup showed: WBC 4.3, hemoglobin 13.1, potassium 3.1, creatinine 0.48 and GFR >60. Viral PCR negative. CXR showed no acute cardiopulmonary disease. Review of Systems Review of Systems: All systems reviewed & are unremarkable except as noted in HPI and below PMFSH Past Medical History Medical History Cirrhosis Elevated liver enzymes Hepatitis, alcoholic, acute Chronic pancreatitis Portal hypertension Coagulopathy Atrial fibrillation with rapid ventricular response Suicidal ideation Esophageal varices Diabetes mellitus Anxiety Panic attacks Chronic depression Chronic liver disease Surgical History Surgical History History of bilateral ligation of fallopian tubes History of gastrointestinal surgery For esophageal varices Family History Family History Other Unknown family medical history Social History Social History Social History: Homeless but per documentation going through a messy divorce Smoking status: Unknown if ever smoked Alcohol use details: Liquor Substance use: unknown Education: Trade/Vocational Certificate Spiritual care concerns: No Meds Home Medications and Allergies Home Medications ?Medication ?Instructions ?Recorded ?Confirmed ?Type fluoxetine 20 mg/5 mL (4 mg/mL) 20 mg PO QAM 07/07/24 07/07/24 History oral solution folic acid 1 mg tablet 1 mg PO DAILY 07/07/24 07/07/24 History hydroxyzine HCl 25 mg tablet 25 mg PO PRN 07/07/24 07/07/24 History lactulose 10 gram/15 mL oral 10 g PO TID 07/07/24 07/07/24 History solution magnesium oxide-magnesium amino cap PO 07/07/24 History acid chelate 300 mg capsule melatonin 10 mg capsule 10 mg PO HS 07/07/24 07/07/24 History nicotine 14 mg/24 hr daily 1 patch transdermal DAILY 07/07/24 07/07/24 History transdermal patch pantoprazole 40 mg tablet,delayed 40 mg PO QAM 07/07/24 07/07/24 History release rifaximin 550 mg tablet (Xifaxan) 550 mg PO BID 07/07/24 07/07/24 History thiamine HCl (vitamin B1) 100 mg 100 mg PO DAILY 07/07/24 07/07/24 History capsule trazodone 50 mg tablet 75 mg PO HS 07/07/24 07/07/24 History Allergies Allergy/AdvReac Type Severity Reaction Status Date / Time No Known Allergies Allergy Verified 07/07/24 14:29 Vital Signs Vital Signs - 24 hr 07/07/24 14:15 07/07/24 14:20 07/07/24 14:27 Temperature 98.5 F Pulse Rate 81 85 85 Respiratory Rate 24 H 20 Blood Pressure 151/69 H 151/69 H Pulse Oximetry 97 100 Oxygen Delivery Room Air 07/07/24 14:27 07/07/24 14:31 07/07/24 14:32 Temperature Pulse Rate 81 83 Respiratory Rate 26 H 31 H Blood Pressure 169/29 H Pulse Oximetry 96 97 97 Oxygen Delivery Room Air 07/07/24 14:49 07/07/24 14:52 07/07/24 15:00 Temperature Pulse Rate 90 81 Respiratory Rate 22 H 28 H Blood Pressure 159/76 H Pulse Oximetry 86 L 95 97 Oxygen Delivery 07/07/24 15:01 07/07/24 15:08 07/07/24 15:15 Temperature Pulse Rate 83 77 81 Respiratory Rate 19 20 23 H Blood Pressure 161/73 H Pulse Oximetry 97 100 Oxygen Delivery 07/07/24 15:30 07/07/24 15:32 07/07/24 15:47 Temperature Pulse Rate 81 81 81 Respiratory Rate 26 H 26 H 24 H Blood Pressure 156/91 H Pulse Oximetry 98 100 Oxygen Delivery 07/07/24 16:45 07/07/24 16:46 07/07/24 17:00 Temperature Pulse Rate 103 H 104 H 114 H Respiratory Rate 28 H 24 H 20 Blood Pressure 160/74 H Pulse Oximetry 100 100 Oxygen Delivery 07/07/24 17:25 07/07/24 17:30 07/07/24 17:31 Temperature Pulse Rate 108 H 100 101 H Respiratory Rate 21 H 29 H 27 H Blood Pressure 133/58 L Pulse Oximetry 97 100 99 Oxygen Delivery 07/07/24 17:54 07/07/24 19:31 Temperature 100.3 F H 99.0 F Pulse Rate 95 92 Respiratory Rate 27 H 24 H Blood Pressure 146/73 H Pulse Oximetry 99 96 Oxygen Delivery Exam Const: General: comfortable and no acute distress Other: , female, disheveled. Nontoxic appearance. HENMT: Face/Nose/Sinus: Normal nares present Mouth: Yes moist mucous membranes Eyes: General: appearance normal, both eyes and all related structures Sclera: sclerae normal Pupils: Equal, round and reactive pupils present EOM: EOMs intact bilaterally Resp: Other: exp wheeze, no crackles. +tachypnea without accessory muscle use. Cardio: Rate: regular rate Rhythm: regular rhythm Other: S1-S2 present without murmur, rub, ectopy GI: Other: Abdomen soft, nondistended, nontender. Skin: General skin exam: normal color and no rashes or lesions noted Wounds: no wounds Neuro: Speech: normal speech Motor exam (neuro): 5/5 motor strength present throughout Sensory Exam: normal sensation Other: A&O x4 Extrem: General: normal to inspection Other: Club like appearance to fingers. Psych: Mental Status: mental status grossly normal Affect: normal affect Other: Good insight and judgment, pleasant H&P: Results Labs Labs: Short CBC 07/07/24 Range/Units 14:30 WBC 4.3 L (4.5-10.0) K/mm3 Hgb 13.1 (12.0-15.0) g/dL Hct 38.7 (37.0-47.0) % Plt Count 86 L (150-375) k/mm3 BMP 07/07/24 14:30 Sodium 137 Potassium 3.1 L Chloride 104 Carbon Dioxide 23 BUN 6 L Creatinine 0.48 L Glucose 194 H Calcium 8.7 Liver Function 07/07/24 Range/Units 14:30 Total Bilirubin 3.6 H (0.2-1.3) mg/dL AST 49 H (14-36) U/L ALT 25 (6-35) U/L Alkaline Phosphatase 137 H (38-126) U/L Albumin 3.5 (3.5-5.1) g/dL Assessment and Plan Assessment and plan (1) Hypoxia: Code(s): R09.02 - Hypoxemia Status: Acute Assessment and Plan: - CXR: No acute cardiopulmonary disease - EKG, initial: Sinus rhythm, rate 80, consider inferior infarct and anterior infarct age indeterminate, baseline artifact. When compared to EKG done on 04/30/2024, AFib no longer present. - WBC 4.3, hemoglobin 13.1 - viral PCR negative for flu/RSV/COVID - hypoxia noted on room air in the ED, 86%. - supplemental O2 to maintain O2 sat greater than 92%, wean as tolerated Suspect new hypoxia secondary to recent URI. Flu A has been prevalent at her current facility. No pneumonia on CXR. No leukocytosis. Will continue with scheduled steroids and nebulizers. (2) UTI (urinary tract infection): Qualifiers: Hematuria presence: without hematuria Urinary tract infection type: acute cystitis Qualified Code(s): N30.00 - Acute cystitis without hematuria Code(s): N39.0 - Urinary tract infection, site not specified Status: Acute Assessment and Plan: - UA: Cloudy, positive nitrates, 1+ leuks, 6-10 WBC, 4+ bacteria, occasional epithelial cells - UC pending - previous micro reviewed, he grew E coli in April of 2024 that was resistant to Augmentin, Bactrim, Ancef and intermediate to Unasyn. - started on Ceftriaxone on 07/07 (3) URI (upper respiratory infection): Qualifiers: URI type: unspecified viral URI Qualified Code(s): J06.9 - Acute upper respiratory infection, unspecified Code(s): J06.9 - Acute upper respiratory infection, unspecified Status: Acute Assessment and Plan: - viral PCR negative on 07/07/2024 - supportive care: Tylenol p.r.n. Mucinex josé miguel DuoNeb p.r.n. Tessalon Perles p.r.n. Lozenge p.r.n. - monitor WBC/CBC (4) Diabetes mellitus: Qualifiers: Diabetes mellitus type: type 2 Diabetes mellitus longterm insulin use: without electromechanical equipment assembler use Diabetes mellitus complication status: with hyperglycemia Qualified Code(s): E11.65 - Type 2 diabetes mellitus with hyperglycemia Code(s): E11.9 - Type 2 diabetes mellitus without complications Status: Chronic Assessment and Plan: Initial glucose at arrival 194. - hypoglycemia protocol - POC blood glucose ACHS - no home medications - correct regimen ordered - low dose TIDWM, based off BMI - A1C ordered, none on file Plan Diet: Diabetic GI Prophylaxis: Not currently indicated DVT Prophylaxis: Lovenox Lines: Peripheral Code Status: Full code Quality VTE Prophylaxis VTE prophylaxis: pharmacologic ordered Hospitalist [facility] Advance Care Plan I have confirmed that the patient's Advanced Care Plan is present, code status is documented, or surrogate decision maker is listed in patient medical record.: Yes Medication Reconciliation I have utilized all available resources to obtain, update and review the patients current medications (includes all prescriptions, OTC, herbals, cannabis, and nutritional supplements).: Yes
[2024-07-07] MEDS: POTASSIUM CHLORIDE 20 MEQ PACKET (FOR LIQUID) 40 MEQ PO (20:02)
[2024-07-07] MEDS: HYDROcodone/acetaminophen (*CRX) 5-325 MG TABLET 1 TAB PO (20:03)
[2024-07-07 20:09] LABS: Glucose Point of Care 130 mg/dl (65-105)
[2024-07-07] MEDS: IPRATROPIUM 0.5 MG/ALBUTEROL SULFATE 2.5 MG AMPUL.NEB 3 ML INHALATION (20:31)
[2024-07-07 21:35] LABS: Add Urine Microscopic? YES; Appearance Urine Cloudy (Clear); Bacteria Urine 4+ /hpf; Bilirubin Urine Negative (Negative); Blood Urine Negative (Negative); Color Urine Yellow (Yellow); Glucose Urine UA Negative (Negative); Ketones Urine Negative (Negative); Leukocyte Esterase Ur 1+ LEU/UL (Negative); Nitrate Urine Positive (Negative); Protein Urine Negative (Negative); RBC Urine 0-2 /hpf (0-2); Specific Grav Ur 1.008 (1.001-1.035); Squamous Epithelial Cell Urine Occasional /hpf (Few)
--- NOTE | 2024-07-07 22:38 | ADMGEN ---
This patient, Amee Oconnell, was admitted to [facility] Surg Room 330-02. Patient/family oriented to hospital policies and general routines including ID bracelet, bed and alarms, visiting hours, pain management, procedures, bathroom and other care routines, personal items, smoking policy, room service/diet, and visiting hours. Information on how to activate the Rapid Response Team has been discussed. Patient/Family are encouraged to report perceived risks to care and to ask questions if they do not understand what they are told or what they should do.
[2024-07-07] MEDS: traZODone HCL 50 MG TABLET PO (23:24)
[2024-07-07] MEDS: MELATONIN 5 MG TABLET 10 MG PO (23:24)
[2024-07-07] MEDS: rifAXIMin 550 MG TABLET PO (23:24)
[2024-07-07] MEDS: guaiFENesin 12 HR 600 MG TABCR PO (23:25)
[2024-07-07] MEDS: traZODone HCL 25 MG TABLET PO (23:26)
[2024-07-07] MEDS: methylPREDNISolone SOD SUCC 125 MG VIAL 60 MG IV PUSH (23:30)
[2024-07-07 23:45] LABS: Anion Gap 19 mmol/L (4-12); Blood Urea Nitrogen 6 mg/dL (7-17); Calcium 8.5 mg/dL (8.4-10.2); Carbon Dioxide 15 mmol/L (22-30); Chloride 102 mmol/L (98-107); Estimated CRCL calculation 107 ml/min; Estimated Glomerular Filt Rate > 60; Glucose 298 mg/dL (65-110); Potassium 2.9 mmol/L (3.4-5.0); Sodium 136 mmol/L (137-145)
[2024-07-08 06:00] VITALS: BP 111/63; PULSE 72; RESP 18; TEMP 36.5; O2SAT 99
[2024-07-08] MEDS: methylPREDNISolone SOD SUCC 125 MG VIAL 60 MG IV PUSH ×3 (06:22→17:37)
[2024-07-08 06:45] LABS: Basophils Percent Auto 0.2 % (0.2-1.2); Hematocrit 37.6 % (37.0-47.0); Hemoglobin 12.7 g/dL (12.0-15.0); Immature Granulocyte Absolute 0.06 K/mm3 (0.00-0.031); Immature Platelet Fraction Pct 3.3 % (0.9-11.2); Lymphocytes Absolute Auto 0.68 K/mm3 (0.9-3.2); Lymphocytes Percent Auto 11.9 % (18.3-44.2); Mean Corpuscular HGB Conc 33.8 g/dl (32-36); Mean Corpuscular Hemoglobin 33.6 pg (26-34); Mean Corpuscular Volume 99.5 fl (80-100); Mean Platelet Volume 11.7 fl (7.4-10.4); Monocytes Absolute Auto 0.1 K/mm3 (0.1-0.6); Monocytes Percent Auto 2.1 % (2.6-8.5); Neutrophils Absolute Auto 4.9 K/mm3 (1.3-6.7); Neutrophils Percent Auto 84.8 % (45.5-73.1); Platelet Count Result 74 k/mm3 (150-375); Red Blood Count 3.78 M/mm3 (4.2-5.4); White Blood Count 5.7 K/mm3 (4.5-10.0)
[2024-07-08 06:56] LABS: Anion Gap 14 mmol/L (4-12); Blood Urea Nitrogen 9 mg/dL (7-17); Calcium 8.9 mg/dL (8.4-10.2); Carbon Dioxide 19 mmol/L (22-30); Chloride 103 mmol/L (98-107); Estimated CRCL calculation 114 ml/min; Estimated Glomerular Filt Rate > 60; Glucose 299 mg/dL (65-110); Potassium 3.8 mmol/L (3.4-5.0); Sodium 136 mmol/L (137-145)
[2024-07-08 07:34] LABS: Hemoglobin A1C 4.8 % (<5.7)
[2024-07-08 08:01] LABS: Platelet Estimate Decreased (Adequate); Schistocytes None Seen
[2024-07-08 08:14] LABS: Glucose Point of Care 276 mg/dl (65-105)
[2024-07-08] MEDS: INSULIN ASPART (*BKC) 100 UNITS/ML SUB-Q ×3 (09:33→17:37)
[2024-07-08] MEDS: hydrOXYzine HCL 25 MG TABLET PO ×3 (09:33→20:44)
[2024-07-08] MEDS: FLUoxetine HCL 20 MG CAPSULE PO (09:37)
[2024-07-08] MEDS: BENZONATATE 100 MG CAPSULE PO (09:37)
[2024-07-08] MEDS: PANTOPRAZOLE 40 MG TABLET PO (09:37)
[2024-07-08] MEDS: rifAXIMin 550 MG TABLET PO ×2 (09:38→20:40)
[2024-07-08] MEDS: THIAMINE HCL 100 MG TABLET PO (09:38)
[2024-07-08] MEDS: FOLIC ACID 1 MG TABLET PO (09:38)
[2024-07-08] MEDS: LACTULOSE 20 GM/30 ML UDC 10 GM PO ×3 (09:41→17:37)
[2024-07-08] MEDS: guaiFENesin 12 HR 600 MG TABCR PO ×2 (09:56→20:40)
--- NOTE | 2024-07-08 10:44 | PCRCNOTE ---
Window of time for administration has passed. See next scheduled administration.
[2024-07-08 12:18] LABS: Glucose Point of Care 276 mg/dl (65-105)
--- NOTE | 2024-07-08 13:32 | P.PNIM_ITS ---
Progress Note: A&P Assessment and Plan (1) Hypoxia: Code(s): R09.02 - Hypoxemia Status: Acute Assessment and Plan: - CXR: No acute cardiopulmonary disease - EKG, initial: Sinus rhythm, rate 80, consider inferior infarct and anterior infarct age indeterminate, baseline artifact. When compared to EKG done on 04/30/2024, AFib no longer present. - WBC 4.3, hemoglobin 13.1 - viral PCR negative for flu/RSV/COVID - hypoxia noted on room air in the ED, 86%. - supplemental O2 to maintain O2 sat greater than 92%, wean as tolerated Suspect new hypoxia secondary to recent URI. Flu A has been prevalent at her [facility]. No pneumonia on CXR. No leukocytosis. Will continue with scheduled steroids and nebulizers. (2) UTI (urinary tract infection): Qualifiers: Hematuria presence: without hematuria Urinary tract infection type: acute cystitis Qualified Code(s): N30.00 - Acute cystitis without hematuria Code(s): N39.0 - Urinary tract infection, site not specified Status: Acute Assessment and Plan: - UA: Cloudy, positive nitrates, 1+ leuks, 6-10 WBC, 4+ bacteria, occasional epithelial cells - UC pending - previous micro reviewed, he grew E coli in April of 2024 that was resistant to Augmentin, Bactrim, Ancef and intermediate to Unasyn. - started on Ceftriaxone on 07/07 (3) URI (upper respiratory infection): Qualifiers: URI type: unspecified viral URI Qualified Code(s): J06.9 - Acute upper respiratory infection, unspecified Code(s): J06.9 - Acute upper respiratory infection, unspecified Status: Acute Assessment and Plan: - viral PCR negative on 07/07/2024 - supportive care: Tylenol p.r.n. Mucinex josé miguel DuoNeb p.r.n. Tessalon Perles p.r.n. Lozenge p.r.n. - monitor WBC/CBC (4) Diabetes mellitus: Qualifiers: Diabetes mellitus complication status: with hyperglycemia Diabetes mellitus longterm insulin use: without skid wrapper use Diabetes mellitus type: type 2 Qualified Code(s): E11.65 - Type 2 diabetes mellitus with hyperglycemia Code(s): E11.9 - Type 2 diabetes mellitus without complications Status: Chronic Assessment and Plan: Initial glucose at arrival 194. - hypoglycemia protocol - POC blood glucose ACHS - no home medications - correct regimen ordered - low dose TIDWM, based off BMI - A1C ordered, none on file Plan Diet: Diabetic GI Prophylaxis: Not currently indicated DVT Prophylaxis: Lovenox Lines: Peripheral Code Status: Full code Subjective Date/time seen: 07/08/24 13:32 Interval history: Patient reports she was recently admitted in [facility] for a month and almost more than 25 day she was in coma. Patient was not able to tell what was the reason she was admitted at [facility]. After discharging from the [facility] she was living in a shelter and then she was not feeling better and currently she is admitted in the setting of flu like symptoms and UTI. Patient reports before admitting to [facility] her her and her life has been tough after that. Patient smokes 1 or 2 cigarettes and day and drinks of alcohol every day. Review of Systems Review of Systems: All systems reviewed & are unremarkable except as noted in HPI and below Exam Narrative: exp wheeze, no crackles. +tachypnea. disheveled. Const: General: comfortable and no acute distress Other: , female, disheveled. Nontoxic appearance. HENMT: Face/Nose/Sinus: Normal nares present Mouth: Yes moist mucous membranes Eyes: General: appearance normal, both eyes and all related structures Sclera: sclerae normal Pupils: Equal, round and reactive pupils present EOM: EOMs intact bilaterally Resp: Other: exp wheeze, no crackles. +tachypnea without accessory muscle use. Cardio: Rate: regular rate Rhythm: regular rhythm Other: S1-S2 present without murmur, rub, ectopy GI: Other: Abdomen soft, nondistended, nontender. Skin: General skin exam: normal color and no rashes or lesions noted Wounds: no wounds Neuro: Cranial nerves: Yes Equal, round and reactive pupils present Speech: normal speech Motor exam (neuro): 5/5 motor strength present throughout Sensory Exam: normal sensation Other: A&O x4 Extrem: General: normal to inspection Other: Club like appearance to fingers. Psych: Mental Status: mental status grossly normal Affect: normal affect Other: Good insight and judgment, pleasant Objective Data Vital Signs Vital Signs: Vital Signs - 24 hr 07/07/24 14:15 07/07/24 14:20 07/07/24 14:27 Temperature 98.5 F Pulse Rate 81 85 85 Respiratory Rate 24 H 20 Blood Pressure 151/69 H 151/69 H Pulse Oximetry 97 100 Oxygen Delivery Room Air 07/07/24 14:27 07/07/24 14:31 07/07/24 14:32 Temperature Pulse Rate 81 83 Respiratory Rate 26 H 31 H Blood Pressure 169/29 H Pulse Oximetry 96 97 97 Oxygen Delivery Room Air 07/07/24 14:49 07/07/24 14:52 07/07/24 15:00 Temperature Pulse Rate 90 81 Respiratory Rate 22 H 28 H Blood Pressure 159/76 H Pulse Oximetry 86 L 95 97 Oxygen Delivery 07/07/24 15:01 07/07/24 15:08 07/07/24 15:15 Temperature Pulse Rate 83 77 81 Respiratory Rate 19 20 23 H Blood Pressure 161/73 H Pulse Oximetry 97 100 Oxygen Delivery 07/07/24 15:30 07/07/24 15:32 07/07/24 15:47 Temperature Pulse Rate 81 81 81 Respiratory Rate 26 H 26 H 24 H Blood Pressure 156/91 H Pulse Oximetry 98 100 Oxygen Delivery 07/07/24 16:45 07/07/24 16:46 07/07/24 17:00 Temperature Pulse Rate 103 H 104 H 114 H Respiratory Rate 28 H 24 H 20 Blood Pressure 160/74 H Pulse Oximetry 100 100 Oxygen Delivery 07/07/24 17:25 07/07/24 17:30 07/07/24 17:31 Temperature Pulse Rate 108 H 100 101 H Respiratory Rate 21 H 29 H 27 H Blood Pressure 133/58 L Pulse Oximetry 97 100 99 Oxygen Delivery 07/07/24 17:54 07/07/24 19:31 07/07/24 20:35 Temperature 100.3 F H 99.0 F Pulse Rate 95 92 84 Respiratory Rate 27 H 24 H 20 Blood Pressure 146/73 H Pulse Oximetry 99 96 Oxygen Delivery 07/07/24 22:41 07/08/24 06:00 Temperature 97.9 F 97.7 F Pulse Rate 84 72 Respiratory Rate 18 18 Blood Pressure 140/68 111/63 Pulse Oximetry 96 99 Oxygen Delivery Intake/Output Intake/Output: Intake & Output 07/05/24 07/06/24 07/07/24 07/08/24 23:59 23:59 23:59 23:59 Intake Total 240 Balance 240 Meds/Results Medications: Active Medications Generic Name Dose Route Start Last Admin Trade Name Freq PRN Reason Stop Dose Admin Acetaminophen 650 mg 07/07/24 18:24 Acetaminophen 325 Mg Tablet PO Q4H PRN Mild Pain (1-3) or Fever Hydrocodone Bitart/Acetaminophen 1 tab 07/07/24 18:24 07/07/24 20:03 Hydrocodone/Acetaminophen (*Crx) 5-325 Mg Tablet PO 1 tab Q4H PRN Administration Pain Rated 4-6 Albuterol/Ipratropium 3 ml 07/07/24 20:00 07/08/24 10:43 Ipratropium 0.5 Mg/Albuterol Sulfate 2.5 Mg Ampul.Neb 3 Ml INHALATION Not Given Q6HRT [facility] Benzocaine 1 lozenge 07/07/24 20:04 Benzocaine/Menthol (*Bkc) 18 Ea Lozenge PO PRN PRN Sore Throat Benzonatate 100 mg 07/07/24 20:04 07/08/24 09:37 Benzonatate 100 Mg Capsule PO 100 mg TID PRN Administration Cough Dextrose 12.5 gm 07/07/24 20:04 Dextrose 50% 25 Gm/50 Ml Syringe IV PUSH PRN PRN Hypoglycemia Protocol Enoxaparin Sodium 40 mg 07/08/24 09:00 Enoxaparin 40 Mg/0.4 Ml Syringe SUB-Q DAILY [facility] Fluoxetine HCl 20 mg 07/08/24 09:00 07/08/24 09:37 Fluoxetine Hcl 20 Mg Capsule PO 20 mg QAM JOSÉ MIGUEL Administration Folic Acid 1 mg 07/08/24 09:00 07/08/24 09:38 Folic Acid 1 Mg Tablet PO 1 mg DAILY JOSÉ MIGUEL Administration Glucagon 1 mg 07/07/24 20:04 Glucagon For Inj 1 Mg Vial IM PRN PRN Hypoglycemia Protocol Glucose 15 gm 07/07/24 20:04 Glucose Oral Gel 15 Gm Of Glucse In 37.5 Gm Tube PO PRN PRN Hypoglycemia Protocol Guaifenesin 600 mg 07/07/24 21:00 07/08/24 09:56 Guaifenesin 12 Hr 600 Mg Tabcr PO 600 mg Q12HR JOSÉ MIGUEL Administration Hydroxyzine HCl 25 mg 07/07/24 21:48 07/08/24 09:33 Hydroxyzine Hcl 25 Mg Tablet PO 25 mg Q6H PRN Administration anxiety or itching Dextrose 1,000 mls @ 100 mls/hr 07/07/24 20:04 Dextrose 5% 1,000 Ml IVPB PRN PRN Hypoglycemia Protocol Ceftriaxone Sodium 1 gm in 50 mls @ 100 mls/hr 07/07/24 22:00 07/07/24 23:25 Rocephin 1 Gm/Ns 50 Ml IVPB 100 mls/hr Q24H JOSÉ MIGUEL Administration Insulin Aspart 2 - 5 units 07/08/24 08:00 07/08/24 13:05 Insulin Aspart (*Bkc) 100 Units/Ml SUB-Q 3 units TIDWM JOSÉ MIGUEL Administration Protocol Lactulose 10 gm 07/07/24 22:10 07/08/24 13:06 Lactulose 20 Gm/30 Ml Udc PO 10 gm TID JOSÉ MIGUEL Administration Melatonin 10 mg 07/07/24 22:10 07/07/24 23:24 Melatonin 5 Mg Tablet PO 10 mg HS JOSÉ MIGUEL Administration Methylprednisolone Sodium Succinate 60 mg 07/08/24 00:00 07/08/24 13:06 Methylprednisolone Sod Succ 125 Mg Vial IV PUSH 60 mg Q6HR JOSÉ MIGUEL Administration Miscellaneous Information 1 each 07/08/24 00:01 07/08/24 09:52 Hold Lovenox? Platelet Count 86 XX 08/07/24 00:00 Not Given CLARIFY JOSÉ MIGUEL Nicotine 1 patch 07/07/24 22:10 07/08/24 09:49 Nicotine (*Pbkc) 14 Mg Patch TRANSDERM Not Given DAILY JOSÉ MIGUEL Ondansetron HCl 4 mg 07/07/24 18:24 Ondansetron Inj 4 Mg/2 Ml Vial IV PUSH Q4H PRN Nausea Pantoprazole Sodium 40 mg 07/08/24 09:00 07/08/24 09:37 Pantoprazole 40 Mg Tablet PO 40 mg QAM JOSÉ MIGUEL Administration Rifaximin 550 mg 07/07/24 22:10 07/08/24 09:38 Rifaximin 550 Mg Tablet PO 550 mg Q12HR JOSÉ MIGUEL Administration Thiamine HCl 100 mg 07/08/24 09:00 07/08/24 09:38 Thiamine Hcl 100 Mg Tablet PO 100 mg DAILY JOSÉ MIGUEL Administration Trazodone HCl 50 mg 07/07/24 22:10 07/07/24 23:24 Trazodone Hcl 50 Mg Tablet PO 50 mg HS JOSÉ MIGUEL Administration Trazodone HCl 25 mg 07/07/24 22:10 07/07/24 23:26 Trazodone Hcl 25 Mg Tablet PO 25 mg HS JOSÉ MIGUEL Administration Radiology Results: ITS Impressions Chest X-Ray 07/07/24 15:05 IMPRESSION: 1. No acute cardiopulmonary disease. Labs Labs: Laboratory Results - last 24 hr 07/07/24 07/07/24 07/07/24 14:30 20:07 20:21 WBC 4.3 L RBC 3.92 L Hgb 13.1 Hct 38.7 MCV 98.7 MCH 33.4 MCHC 33.9 RDW 16.1 H Plt Count 86 L MPV 11.2 H Immature Gran % (Auto) 1.2 H Neut % (Auto) 39.9 L Lymph % (Auto) 41.1 Fannin % (Auto) 15.5 H Eos % (Auto) 1.8 Baso % (Auto) 0.5 Lymph # (Auto) 1.78 Fannin # (Auto) 0.7 H Eos # (Auto) 0.1 Baso # (Auto) 0.0 Abs Immat Gran (auto) 0.05 H Absolute Neuts (auto) 1.7 Absolute Nucleated RBC 0.000 Band Neutrophils % Not Reportable Nucleated RBC % 0.0 Platelet Estimate Decreased % Immature Plt Fraction 2.7 Schistocytes None seen Sodium 137 Potassium 3.1 L Chloride 104 Carbon Dioxide 23 Anion Gap 10 BUN 6 L Creatinine 0.48 L Estim Creat Clear Calc 99 Estimated GFR > 60 Glucose 194 H POC Capillary Glucose 130 H Hemoglobin A1c Calcium 8.7 Total Bilirubin 3.6 H AST 49 H ALT 25 Alkaline Phosphatase 137 H Total Protein 7.0 Albumin 3.5 Urine Color Yellow Urine Appearance Cloudy H Urine pH 7.0 Ur Specific [place] 1.008 Urine Protein Negative Urine Glucose (UA) Negative Urine Ketones Negative Ur Blood (Man) Negative Urine Nitrate Positive H Urine Bilirubin Negative Urine Urobilinogen 1.0 Leukocyte Esterase Rfl 1+ H Urine RBC 0-2 Urine WBC 6-10 H Ur Squamous Epith Cells Occasional Urine Bacteria 4+ Urine Casts 3-5 Influenza A (RT-PCR) Negative Influenza B (RT-PCR) Negative RSV (RT-PCR) Negative SARS-CoV-2 RNA (RT-PCR) Negative 07/07/24 07/08/24 07/08/24 23:27 06:29 08:01 WBC 5.7 RBC 3.78 L Hgb 12.7 Hct 37.6 MCV 99.5 MCH 33.6 MCHC 33.8 RDW 16.0 H Plt Count 74 L MPV 11.7 H Immature Gran % (Auto) 1.0 H Neut % (Auto) 84.8 H Lymph % (Auto) 11.9 L [place] % (Auto) 2.1 L Eos % (Auto) 0.0 Baso % (Auto) 0.2 Lymph # (Auto) 0.68 L F[place] # (Auto) 0.1 Eos # (Auto) 0.0 Baso # (Auto) 0.0 Abs Immat Gran (auto) 0.06 H Absolute Neuts (auto) 4.9 Absolute Nucleated RBC 0.000 Band Neutrophils % Not Reportable Nucleated RBC % 0.0 Platelet Estimate Decreased % Immature Plt Fraction 3.3 Schistocytes None seen Sodium 136 L 136 L Potassium 2.9 L 3.8 Chloride 102 103 Carbon Dioxide 15 L 19 L Anion Gap 19 H 14 H BUN 6 L 9 Creatinine 0.44 L 0.41 L Estim Creat Clear Calc 107 114 Estimated GFR > 60 > 60 Glucose 298 H 299 H POC Capillary Glucose 276 H Hemoglobin A1c 4.8 Calcium 8.5 8.9 Total Bilirubin AST ALT Alkaline Phosphatase Total Protein Albumin Urine Color Urine Appearance Urine pH Ur Specific [place] Urine Protein Urine Glucose (UA) Urine Ketones Ur Blood (Man) Urine Nitrate Urine Bilirubin Urine Urobilinogen Leukocyte Esterase Rfl Urine RBC Urine WBC Ur Squamous Epith Cells Urine Bacteria Urine Casts Influenza A (RT-PCR) Influenza B (RT-PCR) RSV (RT-PCR) SARS-CoV-2 RNA (RT-PCR) 07/08/24 12:10 WBC RBC Hgb Hct MCV MCH MCHC RDW Plt Count MPV Immature Gran % (Auto) Neut % (Auto) Lymph % (Auto) Fann[place] % (Auto) Eos % (Auto) Baso % (Auto) Lymph # (Auto) Fannin # (Auto) Eos # (Auto) Baso # (Auto) Abs Immat Gran (auto) Absolute Neuts (auto) Absolute Nucleated RBC Band Neutrophils % Nucleated RBC % Platelet Estimate % Immature Plt Fraction Schistocytes Sodium Potassium Chloride Carbon Dioxide Anion Gap BUN Creatinine Estim Creat Clear Calc Estimated GFR Glucose POC Capillary Glucose 276 H Hemoglobin A1c Calcium Total Bilirubin AST ALT Alkaline Phosphatase Total Protein Albumin Urine Color Urine Appearance Urine pH Ur Specific [place] Urine Protein Urine Glucose (UA) Urine Ketones Ur Blood (Man) Urine Nitrate Urine Bilirubin Urine Urobilinogen Leukocyte Esterase Rfl Urine RBC Urine WBC Ur Squamous Epith Cells Urine Bacteria Urine Casts Influenza A (RT-PCR) Influenza B (RT-PCR) RSV (RT-PCR) SARS-CoV-2 RNA (RT-PCR) Quality VTE Prophylaxis VTE prophylaxis: pharmacologic ordered Hospitalist MIPS Advance Care Plan I have confirmed that the patient's Advanced Care Plan is present, code status is documented, or surrogate decision maker is listed in patient medical record.: Yes Medication Reconciliation I have utilized all available resources to obtain, update and review the patients current medications (includes all prescriptions, OTC, herbals, cannabis, and nutritional supplements).: Yes
[2024-07-08 13:41] VITALS: PULSE 67; RESP 20; O2SAT 97
[2024-07-08] MEDS: IPRATROPIUM 0.5 MG/ALBUTEROL SULFATE 2.5 MG AMPUL.NEB 3 ML INHALATION (13:41)
[2024-07-08 13:57] VITALS: PULSE 86; RESP 20
[2024-07-08 14:37] VITALS: BP 127/55; PULSE 65; RESP 16; TEMP 36.7; O2SAT 100
[2024-07-08 17:02] LABS: Glucose Point of Care 296 mg/dl (65-105)
[2024-07-08 20:33] VITALS: BP 140/69; PULSE 71; RESP 22; TEMP 36.7; O2SAT 94
[2024-07-08] MEDS: traZODone HCL 25 MG TABLET PO (20:40)
[2024-07-08] MEDS: traZODone HCL 50 MG TABLET PO (20:40)
[2024-07-08] MEDS: MELATONIN 5 MG TABLET 10 MG PO (20:40)
[2024-07-08 20:57] LABS: Glucose Point of Care 433 mg/dl (65-105)
[2024-07-08] MEDS: INSULIN ASPART (*BKC) 100 UNITS/ML 10 UNITS SUB-Q (21:19)
[2024-07-09] VITALS (11 sets, daily range): BP systolic 132–156; BP diastolic 57–100; PULSE 55–75; RESP 16–21; TEMP 36.4–36.9; O2SAT 92–96
[2024-07-09] MEDS: methylPREDNISolone SOD SUCC 125 MG VIAL 60 MG IV PUSH ×2 (00:18→06:41)
[2024-07-09 00:55] LABS: Glucose Point of Care 244 mg/dl (65-105)
[2024-07-09] MEDS: ACETAMINOPHEN 325 MG TABLET 650 MG PO ×2 (03:06→20:50)
[2024-07-09] MEDS: hydrOXYzine HCL 25 MG TABLET PO ×2 (03:06→08:50)
[2024-07-09] MEDS: IPRATROPIUM 0.5 MG/ALBUTEROL SULFATE 2.5 MG AMPUL.NEB 3 ML INHALATION ×3 (07:05→12:50)
[2024-07-09 07:08] LABS: Hematocrit 37.4 % (37.0-47.0); Hemoglobin 12.7 g/dL (12.0-15.0); Mean Corpuscular Hemoglobin 33.4 pg (26-34); Mean Corpuscular Volume 98.4 fl (80-100); Platelet Count Result 101 k/mm3 (150-375); Red Cell Distribution Width 16.5 % (11.5-14.5); White Blood Count 12.2 K/mm3 (4.5-10.0)
[2024-07-09 07:19] LABS: Alanine Aminotransferase 27 U/L (6-35); Albumin Level 3.2 g/dL (3.5-5.1); Alkaline Phosphatase 123 U/L (38-126); Anion Gap 8 mmol/L (4-12); Aspartate Amino Transferase 43 U/L (14-36); Bilirubin,Total 2.2 mg/dL (0.2-1.3); Blood Urea Nitrogen 11 mg/dL (7-17); Calcium 9.2 mg/dL (8.4-10.2); Carbon Dioxide 24 mmol/L (22-30); Chloride 106 mmol/L (98-107); Estimated CRCL calculation 117 ml/min; Estimated Glomerular Filt Rate > 60; Glucose 200 mg/dL (65-110); Potassium 3.7 mmol/L (3.4-5.0); Sodium 138 mmol/L (137-145)
[2024-07-09 08:49] LABS: Glucose Point of Care 280 mg/dl (65-105)
[2024-07-09] MEDS: LACTULOSE 20 GM/30 ML UDC 10 GM PO ×3 (08:50→20:52)
[2024-07-09] MEDS: FLUoxetine HCL 20 MG CAPSULE PO (08:50)
[2024-07-09] MEDS: guaiFENesin 12 HR 600 MG TABCR PO ×2 (08:50→20:50)
[2024-07-09] MEDS: PANTOPRAZOLE 40 MG TABLET PO (08:50)
[2024-07-09] MEDS: rifAXIMin 550 MG TABLET PO ×2 (08:50→20:50)
[2024-07-09] MEDS: FOLIC ACID 1 MG TABLET PO (08:50)
[2024-07-09] MEDS: THIAMINE HCL 100 MG TABLET PO (08:52)
[2024-07-09] MEDS: INSULIN ASPART (*BKC) 100 UNITS/ML SUB-Q (09:03)
[2024-07-09] MEDS: BENZONATATE 100 MG CAPSULE PO (09:08)
[2024-07-09 11:56] LABS: Glucose Point of Care > 500 mg/dl (65-105)
[2024-07-09 11:56] LABS: Glucose Point of Care > 500 mg/dl (65-105)
[2024-07-09] MEDS: INSULIN ASPART (*BKC) 100 UNITS/ML 10 UNITS SUB-Q ×2 (12:00→13:13)
[2024-07-09 13:12] LABS: Glucose Point of Care > 500 mg/dl (65-105)
[2024-07-09] MEDS: LORazepam INJ (*CRX) 2 MG/ML VIAL IV PUSH (13:38)
[2024-07-09] MEDS: SODIUM CHLORIDE 0.9% IV 500 ML 60 ML IV CONT (13:39)
[2024-07-09 13:43] LABS: Anion Gap 17 mmol/L (4-12); Blood Urea Nitrogen 12 mg/dL (7-17); Calcium 9.6 mg/dL (8.4-10.2); Carbon Dioxide 17 mmol/L (22-30); Chloride 101 mmol/L (98-107); Estimated CRCL calculation 96 ml/min; Estimated Glomerular Filt Rate > 60; Glucose 506 mg/dL (65-110); Potassium 3.4 mmol/L (3.4-5.0); Sodium 135 mmol/L (137-145)
--- NOTE | 2024-07-09 14:22 | WPDCNINT ---
Assessment and Plan Assessment and plan (1) DKA (diabetic ketoacidosis): Code(s): E11.10 - Type 2 diabetes mellitus with ketoacidosis without coma Status: Acute Assessment and Plan: Secondary to steroid Transferred to ICU and patient will be given IVF bolus and will be started on infusion I ordered Insulin infusion and Q1H glucose monitoring Serial labs ordered Replace low potassium Will transition to SC insulin once AG is closed (2) Diabetes mellitus: Qualifiers: Diabetes mellitus complication status: with hyperglycemia Diabetes mellitus assisted insulin use: without intermediate card tender use Diabetes mellitus type: type 2 Qualified Code(s): E11.65 - Type 2 diabetes mellitus with hyperglycemia Code(s): E11.9 - Type 2 diabetes mellitus without complications Status: Chronic Assessment and Plan: See above (3) Alcoholic cirrhosis: Qualifiers: Ascites presence: unspecified Qualified Code(s): K70.30 - Alcoholic cirrhosis of liver without ascites Code(s): K70.30 - Alcoholic cirrhosis of liver without ascites Status: Acute Assessment and Plan: Continue thiamine lactulose folic (4) UTI (urinary tract infection): Qualifiers: Hematuria presence: without hematuria Urinary tract infection type: acute cystitis Qualified Code(s): N30.00 - Acute cystitis without hematuria Code(s): N39.0 - Urinary tract infection, site not specified Status: Acute Assessment and Plan: Continue Rocephin Urine cultures growing E coli (5) URI (upper respiratory infection): Qualifiers: URI type: unspecified viral URI Qualified Code(s): J06.9 - Acute upper respiratory infection, unspecified Code(s): J06.9 - Acute upper respiratory infection, unspecified Status: Acute Assessment and Plan: Chest x-ray clear on admission and viral PCR panel was negative I will recheck it Continue guaifenesin bronchodilators Steroids have been stopped (6) Electrolyte abnormality: Code(s): E87.8 - Other disorders of electrolyte and fluid balance, not elsewhere classified Status: Acute Assessment and Plan: Potassium replacement ordered (7) Encephalopathy: Code(s): G93.40 - Encephalopathy, unspecified Status: Acute Assessment and Plan: Patient is drowsy but easily arousable and follows commands. Answers questions but is slightly confused. Exam is nonfocal. Patient received Ativan short while ago on the floor. I will hold all sedatives and monitor this time Check Ammonia Plan DVT prophylaxis -Lovenox Stress ulcer prophylaxis -PPI Nutrition -diet ordered Code Status - Full Code Senior Technical Project Manager Consult Note Consult date: 07/10/24 Reason for consult: DKA HPI: Amee Oconnell is a 49 year old female with past medical history of AFib alcoholic hepatitis and cirrhosis, esophageal varices, diabetes, anxiety, depression, chronic pancreatitis was admitted on 07/07 with shortness of breath. Patient is for longterm and was found to be hypoxic on evaluation. Patient had developed URI symptoms for 4-5 days prior and was having nonproductive cough wheezing body aches chills nausea diarrhea and vomiting. She was admitted to the floor and was started on supplemental oxygen high-dose steroids bronchodilators. Her chest x-ray was negative her vital PCR was negative. Her workup also showed UA suggestive of UTI and she was started on ceftriaxone. Due to steroids patient has a blood sugar became elevated and she became hyperglycemic. Despite increased subcutaneous insulin administration her s blood glucose was more than 500 and on most recent BMP she had anion gap suggestive of mild DKA. Patient is being transferred to ICU for management of DKA . Patient at this time states that she has been feeling sick for last week and has been having cough which has been dry. She states her cough is better but is not completely resolved. She did had some shortness of breath. Patient is drowsy as she had received Ativan on the floor for anxiety. She does wake up easily and follows commands. She denies any dysuria hematuria hematochezia. She did had some diarrhea prior to admission but none in the hospital. She denies any abdominal pain. She states she is nauseous but no vomiting. No chest pain or fever. All other systems were reviewed and were negative. Review of Systems Review of Systems: All systems reviewed & are unremarkable except as noted in HPI and below (HPI) [facility] Past Medical History Medical History Cirrhosis Elevated liver enzymes Hepatitis, alcoholic, acute Chronic pancreatitis Portal hypertension Coagulopathy Atrial fibrillation with rapid ventricular response Suicidal ideation Esophageal varices Diabetes mellitus Anxiety Panic attacks Chronic depression Chronic liver disease Surgical History Surgical History History of bilateral ligation of fallopian tubes History of gastrointestinal surgery For esophageal varices Family History Family History Mother Chronic obstructive pulmonary disease Other Unknown family medical history Social History Social History Social History: Homeless but per documentation going through a messy divorce Smoking status: Unknown if ever smoked Alcohol intake: former Drinks per week: 20 Alcohol use details: Liquor Substance use: never Do You Feel Safe in your Home?: Yes Lack of Transportation: YES Lack of Food: Sometimes True Current Housing: I Have Housing Concerned About Future Housing: No Difficulty Paying Gas/Electric Bills: No Difficulty Paying for Meds: No Currently Unemployed: No Education: High School Diploma/GED Difficulty w/ Childcare or Family Care: No Spiritual care concerns: No Meds Home Medications and Allergies Home Medications ?Medication ?Instructions ?Recorded ?Confirmed ?Type fluoxetine 20 mg/5 mL (4 mg/mL) 20 mg PO QAM 07/07/24 07/07/24 History oral solution folic acid 1 mg tablet 1 mg PO DAILY 07/07/24 07/07/24 History hydroxyzine HCl 25 mg tablet 25 mg PO PRN 07/07/24 07/07/24 History lactulose 10 gram/15 mL oral 10 g PO TID 07/07/24 07/07/24 History solution magnesium oxide-magnesium amino cap PO 07/07/24 History acid chelate 300 mg capsule melatonin 10 mg capsule 10 mg PO HS 07/07/24 07/07/24 History nicotine 14 mg/24 hr daily 1 patch transdermal DAILY 07/07/24 07/07/24 History transdermal patch pantoprazole 40 mg tablet,delayed 40 mg PO [facility] 07/07/24 07/07/24 History release rifaximin 550 mg tablet (Xifaxan) 550 mg PO BID 07/07/24 07/07/24 History thiamine HCl (vitamin B1) 100 mg 100 mg PO DAILY 07/07/24 07/07/24 History capsule trazodone 50 mg tablet 75 mg PO 07/07/24 07/07/24 History Allergies Allergy/AdvReac Type Severity Reaction Status Date / Time No Known Allergies Allergy Verified 07/07/24 14:29 Vital Signs Vital Signs - 24 hr 07/08/24 14:37 07/08/24 20:33 07/09/24 05:19 Temperature 36.7 C 36.7 C 36.4 C Pulse Rate 65 71 55 L Respiratory Rate 16 22 H 16 Blood Pressure 127/55 L 140/69 132/57 L Pulse Oximetry 100 94 92 Oxygen Delivery Oxygen Flow Rate 07/09/24 07:05 07/09/24 07:05 07/09/24 07:15 Temperature Pulse Rate 62 62 67 Respiratory Rate 18 18 18 Blood Pressure Pulse Oximetry 94 Oxygen Delivery Nasal Cannula Oxygen Flow Rate 2 07/09/24 12:50 07/09/24 13:00 Temperature Pulse Rate 71 72 Respiratory Rate 18 18 Blood Pressure Pulse Oximetry Oxygen Delivery Oxygen Flow Rate Exam Narrative: General: Pt is drowsy but arousable and in NAD Lungs/Chest: Trachea central Clear BS B/L, No crackles or wheezing. Cardiac: RRR. Normal S1 S2. No murmurs Circulation: Pedal pulses are intact and symmetrical. Abdomen: Normal bowel sounds. Soft. NT. ND. Extremities: No clubbing, cyanosis or edema. Warm Neurologic: Follows commands. Moves all 4 extremities PERRL, AO x2 no FND Skin: No Rash Results Labs 07/10/24 04:12 07/10/24 04:12 Labs: Short CBC 07/09/24 Range/Units 06:41 WBC 12.2 H (4.5-10.0) K/mm3 Hgb 12.7 (12.0-15.0) g/dL Hct 37.4 (37.0-47.0) % Plt Count 101 L (150-375) k/mm3 BMP 07/09/24 07/09/24 06:41 13:20 Sodium 138 135 L Potassium 3.7 3.4 Chloride 106 101 Carbon Dioxide 24 17 L BUN 11 12 Creatinine 0.40 L 0.50 L Glucose 200 H 506 H* Calcium 9.2 9.6 Liver Function 07/09/24 Range/Units 06:41 Total Bilirubin 2.2 H (0.2-1.3) mg/dL AST 43 H (14-36) U/L ALT 27 (6-35) U/L Alkaline Phosphatase 123 (38-126) U/L Albumin 3.2 L (3.5-5.1) g/dL Hospitalist MIPS Advance Care Plan I have confirmed that the patient's Advanced Care Plan is present, code status is documented, or surrogate decision maker is listed in patient medical record.: Yes Medication Reconciliation I have utilized all available resources to obtain, update and review the patients current medications (includes all prescriptions, OTC, herbals, cannabis, and nutritional supplements).: Yes
--- NOTE | 2024-07-09 14:30 | ADMIMU ---
This patient, Amee Oconnell, was admitted to ICU status, and placed in Intensive Care Unit-8. Patient/family oriented to hospital policies and general routines including ID bracelet, bed and alarms, visiting hours, pain management, procedures, bathroom and other care routines, personal items, smoking policy, room service/diet, and visiting hours. Valuables list has been completed. Information on how to activate the Rapid Response Team has been discussed. Patient/Family are encouraged to report perceived risks to care and to ask questions if they do not understand what they are told or what they should do.
[2024-07-09] MEDS: INSULIN HUMAN REGULAR (*BKC) 100 UNITS/ML 10 UNITS IV PUSH (14:35)
[2024-07-09] MEDS: LACTATED RINGERS 1,000 ML 999 ML IV CONT (14:35)
[2024-07-09] MEDS: POTASSIUM CHLORIDE 20 MEQ PACKET (FOR LIQUID) 40 MEQ PO (14:36)
[2024-07-09] MEDS: INSULIN HUMAN REGULAR (*BKC) 100 UNITS in SODIUM CHLORIDE 0.9% IV 99 ML 6.4 UNITS IV CONT (14:47)
[2024-07-09] MEDS: SODIUM CHLORIDE 0.9% IV 1,000 ML 100 ML IV CONT (14:48)
[2024-07-09] MEDS: POTASSIUM CHLORIDE INJ 40 MEQ in SODIUM CHLORIDE 0.9% IV 500 ML 130 MEQ IVPB (14:52)
[2024-07-09 15:07] LABS: Glucose Point of Care 434 mg/dl (65-105)
[2024-07-09 15:33] LABS: Influenza A QL RT-PCR Negative (Negative); Influenza B QL RT-PCR Negative (Negative); RSV RNA, RT-PCR Negative (Negative); SARS-CoV-2 RNA PCR Negative (Negative)
--- NOTE | 2024-07-09 15:39 | PM.IMPN ---
Progress Note: A&P Assessment and Plan (1) DKA (diabetic ketoacidosis): Code(s): E11.10 - Type 2 diabetes mellitus with ketoacidosis without coma Status: Acute Assessment and Plan: Secondary to steroid Transferred to ICU and patient will be given IVF bolus and will be started on infusion Insulin infusion and Q1H glucose monitoring Serial labs ordered Replace low potassium Will transition to SC insulin once AG is closed (2) Diabetes mellitus: Qualifiers: Diabetes mellitus type: type 2 Diabetes mellitus prison insulin use: without prison use Diabetes mellitus complication status: with hyperglycemia Qualified Code(s): E11.65 - Type 2 diabetes mellitus with hyperglycemia Code(s): E11.9 - Type 2 diabetes mellitus without complications Status: Chronic Assessment and Plan: See above (3) Alcoholic cirrhosis: Qualifiers: Ascites presence: unspecified Qualified Code(s): K70.30 - Alcoholic cirrhosis of liver without ascites Code(s): K70.30 - Alcoholic cirrhosis of liver without ascites Status: Acute Assessment and Plan: Continue thiamine lactulose folic CIWA protocol Ativan 2 mg Q 6 hours for anxiety(on hold) (4) UTI (urinary tract infection): Qualifiers: Hematuria presence: without hematuria Urinary tract infection type: acute cystitis Qualified Code(s): N30.00 - Acute cystitis without hematuria Code(s): N39.0 - Urinary tract infection, site not specified Status: Acute Assessment and Plan: Continue Rocephin Urine cultures growing E coli (5) URI (upper respiratory infection): Qualifiers: URI type: unspecified viral URI Qualified Code(s): J06.9 - Acute upper respiratory infection, unspecified Code(s): J06.9 - Acute upper respiratory infection, unspecified Status: Acute Assessment and Plan: Chest x-ray clear on admission and viral PCR panel was negative I will recheck it Continue guaifenesin bronchodilators Steroids have been stopped (6) Electrolyte abnormality: Code(s): E87.8 - Other disorders of electrolyte and fluid balance, not elsewhere classified Status: Acute Assessment and Plan: Potassium replacement ordered (7) Encephalopathy: Code(s): G93.40 - Encephalopathy, unspecified Status: Acute Assessment and Plan: Patient is drowsy but easily arousable and follows commands. Answers questions but is slightly confused. Exam is nonfocal. Patient received Ativan short while ago on the floor. Vacuum Drier Tender holding all sedatives and monitor this time Check Ammonia Plan DVT prophylaxis -Lovenox Stress ulcer prophylaxis -PPI Nutrition -diet ordered Code Status - Full Code Subjective Date/time seen: 07/09/24 15:39 Interval history: Patient had elevated blood sugar. Patient was given totally 20 units of insulin( 10 U apart). The weighted blood sugar possibly due to the methylprednisone. Discontinued methylprednisone this morning and ordered a BMP which shows anion gap. Discussed with retail sales merchandiser development who accepted the patient in ICU for DKA. Review of Systems Review of Systems: All systems reviewed & are unremarkable except as noted in HPI and below (HPI) Exam Narrative: General: Pt is drowsy but arousable and in NAD Lungs/Chest: Trachea central Clear BS B/L, No crackles or wheezing. Cardiac: RRR. Normal S1 S2. No murmurs Circulation: Pedal pulses are intact and symmetrical. Abdomen: Normal bowel sounds. Soft. NT. ND. Extremities: No clubbing, cyanosis or edema. Warm Neurologic: Follows commands. Moves all 4 extremities PERRL, AO x2 no FND Skin: No Rash Const: General: comfortable and no acute distress Other: , female, disheveled. Nontoxic appearance. HENMT: Face/Nose/Sinus: Normal nares present Mouth: Yes moist mucous membranes Eyes: General: appearance normal, both eyes and all related structures Sclera: sclerae normal Pupils: Equal, round and reactive pupils present EOM: EOMs intact bilaterally Resp: Other: exp wheeze, no crackles. +tachypnea without accessory muscle use. Cardio: Rate: regular rate Rhythm: regular rhythm Other: S1-S2 present without murmur, rub, ectopy GI: Other: Abdomen soft, nondistended, nontender. Skin: General skin exam: normal color and no rashes or lesions noted Wounds: no wounds Neuro: Cranial nerves: Yes Equal, round and reactive pupils present Speech: normal speech Motor exam (neuro): 5/5 motor strength present throughout Sensory Exam: normal sensation Other: A&O x4 Extrem: General: normal to inspection Other: Club like appearance to fingers. Psych: Mental Status: mental status grossly normal Affect: normal affect Other: Good insight and judgment, pleasant Objective Data Vital Signs Vital Signs: Vital Signs - 24 hr 07/08/24 20:33 07/09/24 05:19 07/09/24 07:05 Temperature 98.0 F 97.6 F Pulse Rate 71 55 L 62 Respiratory Rate 22 H 16 18 Blood Pressure 140/69 132/57 L Pulse Oximetry 94 92 94 Oxygen Delivery Nasal Cannula Oxygen Flow Rate 2 07/09/24 07:05 07/09/24 07:15 07/09/24 08:00 Temperature Pulse Rate 62 67 Respiratory Rate 18 18 Blood Pressure Pulse Oximetry 94 Oxygen Delivery Nasal Cannula Oxygen Flow Rate 2 07/09/24 12:50 07/09/24 13:00 07/09/24 14:30 Temperature 97.5 F L Pulse Rate 71 72 75 Respiratory Rate 18 18 21 H Blood Pressure 156/81 H Pulse Oximetry 96 Oxygen Delivery Oxygen Flow Rate Intake/Output Intake/Output: Intake & Output 07/06/24 07/07/24 07/08/24 07/09/24 23:59 23:59 23:59 23:59 Intake Total 50 720 890 Balance 50 720 890 Meds/Results Medications: Active Medications Generic Name Dose Route Start Last Admin Trade Name Freq PRN Reason Stop Dose Admin Acetaminophen 650 mg 07/07/24 18:24 07/09/24 03:06 Acetaminophen 325 Mg Tablet PO 650 mg Q4H PRN Administration Mild Pain (1-3) or Fever Hydrocodone Bitart/Acetaminophen 1 tab 07/07/24 18:24 07/07/24 20:03 Hydrocodone/Acetaminophen (*Crx) 5-325 Mg Tablet PO 1 tab Q4H PRN Administration Pain Rated 4-6 Albuterol/Ipratropium 3 ml 07/09/24 14:31 Ipratropium 0.5 Mg/Albuterol Sulfate 2.5 Mg Ampul.Neb 3 Ml INHALATION Q6HRT PRN Wheezing Benzocaine 1 lozenge 07/07/24 20:04 Benzocaine/Menthol (*Bkc) 18 Ea Lozenge PO PRN PRN Sore Throat Benzonatate 100 mg 07/07/24 20:04 07/09/24 09:08 Benzonatate 100 Mg Capsule PO 100 mg TID PRN Administration Cough Dextrose 12.5 gm 07/07/24 20:04 Dextrose 50% 25 Gm/50 Ml Syringe IV PUSH PRN PRN Hypoglycemia Protocol Fluoxetine HCl 20 mg 07/08/24 09:00 07/09/24 08:50 Fluoxetine Hcl 20 Mg Capsule PO 20 mg QAM MICHOACANO Administration Folic Acid 1 mg 07/08/24 09:00 07/09/24 08:50 Folic Acid 1 Mg Tablet PO 1 mg DAILY MICHOACANO Administration Glucagon 1 mg 07/07/24 20:04 Glucagon For Inj 1 Mg Vial IM PRN PRN Hypoglycemia Protocol Glucose 15 gm 07/07/24 20:04 Glucose Oral Gel 15 Gm Of Glucse In 37.5 Gm Tube PO PRN PRN Hypoglycemia Protocol Guaifenesin 600 mg 07/07/24 21:00 07/09/24 08:50 Guaifenesin 12 Hr 600 Mg Tabcr PO 600 mg Q12HR MICHOACANO Administration Hydroxyzine HCl 25 mg 07/07/24 21:48 07/09/24 08:50 Hydroxyzine Hcl 25 Mg Tablet PO 25 mg Q6H PRN Administration anxiety or itching Dextrose 1,000 mls @ 100 mls/hr 07/07/24 20:04 Dextrose 5% 1,000 Ml IVPB PRN PRN Hypoglycemia Protocol Ceftriaxone Sodium 1 gm in 50 mls @ 100 mls/hr 07/07/24 22:00 07/08/24 21:19 Rocephin 1 Gm/Ns 50 Ml IVPB 100 mls/hr Q24H MICHOACANO Administration Sodium Chloride 500 mls @ 60 mls/hr 07/09/24 13:28 07/09/24 13:39 Normal Saline Iv IV CONT 07/09/24 21:47 60 mls/hr .Q8H20M ONE Administration Sodium Chloride 1,000 mls @ 100 mls/hr 07/09/24 14:00 07/09/24 14:48 Normal Saline Iv IV CONT 100 mls/hr .Q10H MICHOACANO Administration Potassium Chloride/Dextrose/Sod Cl 1,000 mls @ 100 mls/hr 07/09/24 14:00 Kcl 20 Meq/D5/0.45% Sod Chl IV CONT .Q10H MICHOACANO Dextrose/Sodium Chloride 1,000 mls @ 100 mls/hr 07/09/24 14:00 Dextrose 5% Sodium Chloride 0.45% IV CONT .Q10H MICHOACANO Insulin Human Regular 100 100 mls @ 6.4 mls/hr 07/09/24 14:00 07/09/24 14:47 units/ Sodium Chloride IV CONT 6.4 units/hr .[id number] MICHOACANO 6.4 mls/hr Administration Protocol 6.4 UNITS/HR Potassium Chloride 40 meq/ 520 mls @ 130 mls/hr 07/09/24 14:15 07/09/24 14:52 Sodium Chloride IVPB 07/09/24 18:14 130 mls/hr ONCE ONE Administration Insulin Aspart 0 units 07/09/24 12:00 07/09/24 12:01 Insulin Aspart (*Bkc) 100 Units/Ml SUB-Q Not Given TIDWM MICHOACANO Protocol Lactulose 10 gm 07/07/24 22:10 07/09/24 14:38 Lactulose 20 Gm/30 Ml Udc PO 10 gm TID MICHOACANO Administration Lorazepam 2 mg 07/09/24 13:23 Lorazepam Inj (*Crx) 2 Mg/Ml Vial IV PUSH Q4H PRN Seizures Melatonin 10 mg 07/07/24 22:10 07/08/24 20:40 Melatonin 5 Mg Tablet PO 10 mg HS MICHOACANO Administration Nicotine 1 patch 07/07/24 22:10 07/09/24 08:52 Nicotine (*Pbkc) 14 Mg Patch TRANSDERM Not Given DAILY MICHOACANO Ondansetron HCl 4 mg 07/07/24 18:24 Ondansetron Inj 4 Mg/2 Ml Vial IV PUSH Q4H PRN Nausea Pantoprazole Sodium 40 mg 07/08/24 09:00 07/09/24 08:50 Pantoprazole 40 Mg Tablet PO 40 mg QAM MICHOACANO Administration Rifaximin 550 mg 07/07/24 22:10 07/09/24 08:50 Rifaximin 550 Mg Tablet PO 550 mg Q12HR MICHOACANO Administration Thiamine HCl 100 mg 07/08/24 09:00 07/09/24 08:52 Thiamine Hcl 100 Mg Tablet PO 100 mg DAILY MICHOACANO Administration Trazodone HCl 50 mg 07/07/24 22:10 07/08/24 20:40 Trazodone Hcl 50 Mg Tablet PO 50 mg HS MICHOACANO Administration Trazodone HCl 25 mg 07/07/24 22:10 07/08/24 20:40 Trazodone Hcl 25 Mg Tablet PO 25 mg HS MICHOACANO Administration Radiology Results: ITS Impressions Chest X-Ray 07/07/24 15:05 IMPRESSION: 1. No acute cardiopulmonary disease. Labs Labs: Laboratory Results - last 24 hr 07/08/24 07/08/24 07/09/24 17:00 20:35 00:52 WBC RBC Hgb Hct MCV MCH MCHC RDW Plt Count MPV Sodium Potassium Chloride Carbon Dioxide Anion Gap BUN Creatinine Estim Creat Clear Calc Estimated GFR Glucose POC Capillary Glucose 296 H 433 H 244 H Calcium Total Bilirubin AST ALT Alkaline Phosphatase Total Protein Albumin Influenza A (RT-PCR) Influenza B (RT-PCR) RSV (RT-PCR) SARS-CoV-2 RNA (RT-PCR) 07/09/24 07/09/24 07/09/24 06:41 08:26 11:38 WBC 12.2 H RBC 3.80 L Hgb 12.7 Hct 37.4 MCV 98.4 MCH 33.4 MCHC 34.0 RDW 16.5 H Plt Count 101 L MPV 12.0 H Sodium 138 Potassium 3.7 Chloride 106 Carbon Dioxide 24 Anion Gap 8 BUN 11 Creatinine 0.40 L Estim Creat Clear Calc 117 Estimated GFR > 60 Glucose 200 H POC Capillary Glucose 280 H > 500 H* Calcium 9.2 Total Bilirubin 2.2 H AST 43 H ALT 27 Alkaline Phosphatase 123 Total Protein 7.0 Albumin 3.2 L Influenza A (RT-PCR) Influenza B (RT-PCR) RSV (RT-PCR) SARS-CoV-2 RNA (RT-PCR) 07/09/24 07/09/24 07/09/24 11:41 13:08 13:20 WBC RBC Hgb Hct MCV MCH MCHC RDW Plt Count MPV Sodium 135 L Potassium 3.4 Chloride 101 Carbon Dioxide 17 L Anion Gap 17 H BUN 12 Creatinine 0.50 L Estim Creat Clear Calc 96 Estimated GFR > 60 Glucose 506 H* POC Capillary Glucose > 500 H* > 500 H* Calcium 9.6 Total Bilirubin AST ALT Alkaline Phosphatase Total Protein Albumin Influenza A (RT-PCR) Influenza B (RT-PCR) RSV (RT-PCR) SARS-CoV-2 RNA (RT-PCR) 07/09/24 07/09/24 14:31 14:46 WBC RBC Hgb Hct MCV MCH MCHC RDW Plt Count MPV Sodium Potassium Chloride Carbon Dioxide Anion Gap BUN Creatinine Estim Creat Clear Calc Estimated GFR Glucose POC Capillary Glucose 434 H Calcium Total Bilirubin AST ALT Alkaline Phosphatase Total Protein Albumin Influenza A (RT-PCR) Negative Influenza B (RT-PCR) Negative RSV (RT-PCR) Negative SARS-CoV-2 RNA (RT-PCR) Negative Quality VTE Prophylaxis VTE prophylaxis: pharmacologic ordered Hospitalist MIPS Advance Care Plan I have confirmed that the patient's Advanced Care Plan is present, code status is documented, or surrogate decision maker is listed in patient medical record.: Yes Medication Reconciliation I have utilized all available resources to obtain, update and review the patients current medications (includes all prescriptions, OTC, herbals, cannabis, and nutritional supplements).: Yes
[2024-07-09 15:42] LABS: Glucose Point of Care 331 mg/dl (65-105)
[2024-07-09 15:50] LABS: Ammonia 27 umol/L (9-30); Anion Gap 15 mmol/L (4-12); Blood Urea Nitrogen 11 mg/dL (7-17); Calcium 9.3 mg/dL (8.4-10.2); Carbon Dioxide 16 mmol/L (22-30); Chloride 105 mmol/L (98-107); Estimated CRCL calculation 94 ml/min; Estimated Glomerular Filt Rate > 60; Glucose 351 mg/dL (65-110); Magnesium 1.7 mg/dL (1.6-2.3); Phosphorus 2.1 mg/dL (2.5-4.5); Potassium 3.3 mmol/L (3.4-5.0); Sodium 136 mmol/L (137-145)
[2024-07-09 16:10] LABS: MRSA (PCR) NOT DETECTED (NOT DETECTE)
[2024-07-09] MEDS: KCL 20 MEQ/D5/0.45% SOD CHL 1,000 ML 100 ML IV CONT (17:02)
[2024-07-09 17:06] LABS: Glucose Point of Care 192 mg/dl (65-105)
[2024-07-09 17:54] LABS: Glucose Point of Care 162 mg/dl (65-105)
[2024-07-09 19:12] LABS: Glucose Point of Care 205 mg/dl (65-105)
[2024-07-09 20:00] LABS: Glucose Point of Care 236 mg/dl (65-105)
[2024-07-09] MEDS: MELATONIN 5 MG TABLET 10 MG PO (20:54)
[2024-07-09 21:05] LABS: Glucose Point of Care 282 mg/dl (65-105)
[2024-07-09 21:20] LABS: Anion Gap 9 mmol/L (4-12); Blood Urea Nitrogen 10 mg/dL (7-17); Carbon Dioxide 21 mmol/L (22-30); Chloride 107 mmol/L (98-107); Estimated CRCL calculation 98 ml/min; Estimated Glomerular Filt Rate > 60; Glucose 264 mg/dL (65-110); Potassium 4.1 mmol/L (3.4-5.0); Sodium 137 mmol/L (137-145)
[2024-07-09 22:03] LABS: Glucose Point of Care 315 mg/dl (65-105)
[2024-07-09] MEDS: INSULIN GLARGINE (*BKC) 100 UNITS/ML 20 UNITS SUB-Q (22:54)
[2024-07-09 23:23] LABS: Glucose Point of Care 283 mg/dl (65-105)
[2024-07-10] VITALS (19 sets, daily range): BP systolic 118–141; BP diastolic 62–103; PULSE 55–99; RESP 16–24; TEMP 36.7–36.9; O2SAT 94–97
[2024-07-10 00:01] LABS: Glucose Point of Care 215 mg/dl (65-105)
[2024-07-10 01:03] LABS: Glucose Point of Care 171 mg/dl (65-105)
[2024-07-10 01:31] LABS: Anion Gap 8 mmol/L (4-12); Blood Urea Nitrogen 10 mg/dL (7-17); Calcium 9.2 mg/dL (8.4-10.2); Carbon Dioxide 23 mmol/L (22-30); Chloride 106 mmol/L (98-107); Estimated CRCL calculation 107 ml/min; Estimated Glomerular Filt Rate > 60; Glucose 161 mg/dL (65-110); Potassium 3.8 mmol/L (3.4-5.0); Sodium 137 mmol/L (137-145)
[2024-07-10] MEDS: ACETAMINOPHEN 325 MG TABLET 650 MG PO ×3 (04:11→21:34)
[2024-07-10 04:20] LABS: Glucose Point of Care 105 mg/dl (65-105)
[2024-07-10 04:22] LABS: Hematocrit 37.2 % (37.0-47.0); Hemoglobin 12.6 g/dL (12.0-15.0); Mean Corpuscular HGB Conc 33.9 g/dl (32-36); Mean Corpuscular Hemoglobin 33.2 pg (26-34); Mean Corpuscular Volume 97.9 fl (80-100); Mean Platelet Volume 10.8 fl (7.4-10.4); Platelet Count Result 115 k/mm3 (150-375); Red Cell Distribution Width 16.1 % (11.5-14.5); White Blood Count 13.7 K/mm3 (4.5-10.0)
[2024-07-10 04:40] LABS: Alanine Aminotransferase 37 U/L (6-35); Albumin Level 3.3 g/dL (3.5-5.1); Alkaline Phosphatase 125 U/L (38-126); Anion Gap 9 mmol/L (4-12); Aspartate Amino Transferase 54 U/L (14-36); Bilirubin,Total 2.2 mg/dL (0.2-1.3); Blood Urea Nitrogen 9 mg/dL (7-17); Calcium 9.3 mg/dL (8.4-10.2); Carbon Dioxide 23 mmol/L (22-30); Chloride 105 mmol/L (98-107); Estimated CRCL calculation 109 ml/min; Estimated Glomerular Filt Rate > 60; Glucose 106 mg/dL (65-110); Magnesium 1.5 mg/dL (1.6-2.3); Potassium 3.7 mmol/L (3.4-5.0); Sodium 137 mmol/L (137-145)
[2024-07-10 07:52] LABS: Glucose Point of Care 104 mg/dl (65-105)
[2024-07-10] MEDS: THIAMINE HCL 100 MG TABLET PO (08:10)
[2024-07-10] MEDS: NICOTINE (*PBKC) 14 MG PATCH 1 PATCH TRANSDERM (08:10)
[2024-07-10] MEDS: PANTOPRAZOLE 40 MG TABLET PO (08:10)
[2024-07-10] MEDS: LACTULOSE 20 GM/30 ML UDC 10 GM PO ×3 (08:10→18:50)
[2024-07-10] MEDS: guaiFENesin 12 HR 600 MG TABCR PO ×2 (08:10→21:29)
[2024-07-10] MEDS: FOLIC ACID 1 MG TABLET PO (08:10)
[2024-07-10] MEDS: rifAXIMin 550 MG TABLET PO ×2 (08:10→21:29)
[2024-07-10] MEDS: BENZONATATE 100 MG CAPSULE PO ×2 (08:10→12:01)
[2024-07-10] MEDS: IPRATROPIUM 0.5 MG/ALBUTEROL SULFATE 2.5 MG AMPUL.NEB 3 ML INHALATION ×2 (08:12→14:25)
[2024-07-10] MEDS: MEROPENEM 1 GM/NS 100 ML 1 GM/100 ML BAG IVPB ×3 (08:46→21:29)
--- NOTE | 2024-07-10 10:03 | WPDINTPN ---
Progress Note: A&P Assessment and Plan (1) DKA (diabetic ketoacidosis): Code(s): E11.10 - Type 2 diabetes mellitus with ketoacidosis without coma Status: Acute Assessment and Plan: Secondary to steroid Transferred to ICU and patient will be given IVF bolus and will be started on infusion Patient was treated with insulin infusion Serial labs were ordered Her anion gap has closed and patient has been transition to subcutaneous insulin now Diet has been continue (2) Diabetes mellitus: Qualifiers: Diabetes mellitus type: type 2 Diabetes mellitus assisted insulin use: without assisted use Diabetes mellitus complication status: with hyperglycemia Qualified Code(s): E11.65 - Type 2 diabetes mellitus with hyperglycemia Code(s): E11.9 - Type 2 diabetes mellitus without complications Status: Chronic Assessment and Plan: See above (3) Alcoholic cirrhosis: Qualifiers: Ascites presence: unspecified Qualified Code(s): K70.30 - Alcoholic cirrhosis of liver without ascites Code(s): K70.30 - Alcoholic cirrhosis of liver without ascites Status: Acute Assessment and Plan: Continue thiamine lactulose folic (4) UTI (urinary tract infection): Qualifiers: Hematuria presence: without hematuria Urinary tract infection type: acute cystitis Qualified Code(s): N30.00 - Acute cystitis without hematuria Code(s): N39.0 - Urinary tract infection, site not specified Status: Acute Assessment and Plan: Urine cultures growing E coli which is ESBL. Switch Rocephin to meropenem (5) URI (upper respiratory infection): Qualifiers: URI type: unspecified viral URI Qualified Code(s): J06.9 - Acute upper respiratory infection, unspecified Code(s): J06.9 - Acute upper respiratory infection, unspecified Status: Acute Assessment and Plan: Chest x-ray clear on admission and viral PCR panel was negative x 2 Continue guaifenesin bronchodilators Steroids have been stopped Bronchodilators Check BNP For further fluids Patient denies history of COPD or significant smoking Patient is already on broad-spectrum antibiotics (6) Electrolyte abnormality: Code(s): E87.8 - Other disorders of electrolyte and fluid balance, not elsewhere classified Status: Acute Assessment and Plan: Potassium replacement ordered (7) Encephalopathy: Code(s): G93.40 - Encephalopathy, unspecified Status: Acute Assessment and Plan: Patient is drowsy but easily arousable and follows commands. Answers questions but is slightly confused. Exam is nonfocal. Patient received Ativan short while ago on the floor. I will hold all sedatives and monitor this time Check Ammonia Plan DVT prophylaxis -Lovenox Stress ulcer prophylaxis -PPI Nutrition -diet ordered Code Status - Full Code Subjective Date/time seen: 07/10/24 Overnight events reviewed. Patient weaned off insulin infusion and back to subcutaneous insulin has a blood sugar improved. She complains of wheezing this morning.. Does not feel short of breath. Is on 2 L oxygen. Sinus rhythm on the monitor afebrile. Complains of cough which is dry. Denies any chest pain abdominal pain nausea vomit all other systems were reviewed and were negative Review of Systems Review of Systems: All systems reviewed & are unremarkable except as noted in HPI and below (HPI) Exam Narrative: General: Pt is drowsy but arousable and in NAD Lungs/Chest: Trachea central Clear BS B/L, bilateral wheezing but when patient is calm and laying back the wheezing resolved Cardiac: RRR. Normal S1 S2. No murmurs Circulation: Pedal pulses are intact and symmetrical. Abdomen: Normal bowel sounds. Soft. NT. ND. Extremities: No clubbing, cyanosis or edema. Warm Neurologic: Follows commands. Moves all 4 extremities PERRL, AO x2 no FND Skin: No Rash Objective Data Vital Signs Vital Signs: Vital Signs - 24 hr 07/09/24 12:50 07/09/24 13:00 07/09/24 14:30 Temperature 36.4 C L Pulse Rate 71 72 75 Respiratory Rate 18 18 21 H Blood Pressure 156/81 H Pulse Oximetry 96 Oxygen Delivery Oxygen Flow Rate Fraction of Inspired Oxygen 07/09/24 14:30 07/09/24 14:30 07/09/24 16:00 Temperature Pulse Rate Respiratory Rate Blood Pressure 156/81 H 156/81 H Pulse Oximetry 96 Oxygen Delivery Nasal Cannula Oxygen Flow Rate 2 Fraction of Inspired Oxygen 07/09/24 16:00 07/09/24 16:00 07/09/24 20:00 Temperature Pulse Rate 68 Respiratory Rate Blood Pressure Pulse Oximetry 96 95 Oxygen Delivery Nasal Cannula Nasal Cannula Oxygen Flow Rate 2 2 Fraction of Inspired Oxygen 07/09/24 20:00 07/09/24 20:45 07/09/24 22:00 Temperature 36.9 C Pulse Rate 68 64 Respiratory Rate 20 Blood Pressure 155/100 H Pulse Oximetry 93 93 Oxygen Delivery Nasal Cannula Oxygen Flow Rate 2 Fraction of Inspired Oxygen 28 07/09/24 22:00 07/10/24 00:00 07/10/24 00:00 Temperature Pulse Rate 64 59 L Respiratory Rate Blood Pressure Pulse Oximetry 94 Oxygen Delivery Nasal Cannula Oxygen Flow Rate 2 Fraction of Inspired Oxygen 07/10/24 02:00 07/10/24 02:07 07/10/24 04:00 Temperature Pulse Rate 67 63 Respiratory Rate 20 Blood Pressure 137/103 H Pulse Oximetry 94 94 Oxygen Delivery Nasal Cannula Oxygen Flow Rate 2 Fraction of Inspired Oxygen 07/10/24 04:00 07/10/24 06:00 07/10/24 06:05 Temperature Pulse Rate 61 55 L 56 L Respiratory Rate 18 Blood Pressure 138/85 Pulse Oximetry 95 Oxygen Delivery Oxygen Flow Rate Fraction of Inspired Oxygen 07/10/24 08:00 07/10/24 08:00 07/10/24 08:12 Temperature Pulse Rate 63 61 Respiratory Rate 22 H Blood Pressure Pulse Oximetry 95 94 Oxygen Delivery Nasal Cannula Nasal Cannula Oxygen Flow Rate 2 2 Fraction of Inspired Oxygen 07/10/24 08:12 07/10/24 08:26 07/10/24 10:00 Temperature Pulse Rate 55 L 61 66 Respiratory Rate 22 H 20 Blood Pressure Pulse Oximetry Oxygen Delivery Oxygen Flow Rate Fraction of Inspired Oxygen Intake/Output Intake/Output: Intake & Output 07/07/24 07/08/24 07/09/24 07/10/24 23:59 23:59 23:59 23:59 Intake Total 50 770 2376.1 1668.6 Output Total 250 700 Balance 50 770 2126.1 968.6 Meds/Results Medications: Active Medications Generic Name Dose Route Start Last Admin Trade Name Freq PRN Reason Stop Dose Admin Acetaminophen 650 mg 07/07/24 18:24 07/10/24 04:11 Acetaminophen 325 Mg Tablet PO 650 mg Q4H PRN Administration Mild Pain (1-3) or Fever Hydrocodone Bitart/Acetaminophen 1 tab 07/07/24 18:24 07/07/24 20:03 Hydrocodone/Acetaminophen (*Crx) 5-325 Mg Tablet PO 1 tab Q4H PRN Administration Pain Rated 4-6 Albuterol/Ipratropium 3 ml 07/09/24 14:31 07/10/24 08:12 Ipratropium 0.5 Mg/Albuterol Sulfate 2.5 Mg Ampul.Neb 3 Ml INHALATION 3 ml Q6HRT PRN Administration Wheezing Benzocaine 1 lozenge 07/07/24 20:04 Benzocaine/Menthol (*Bkc) 18 Ea Lozenge PO PRN PRN Sore Throat Benzonatate 100 mg 07/07/24 20:04 07/10/24 08:10 Benzonatate 100 Mg Capsule PO 100 mg TID PRN Administration Cough Dextrose 12.5 gm 07/07/24 20:04 Dextrose 50% 25 Gm/50 Ml Syringe IV PUSH PRN PRN Hypoglycemia Protocol Fluoxetine HCl 20 mg 07/08/24 09:00 07/09/24 08:50 Fluoxetine Hcl 20 Mg Capsule PO 20 mg QAM MICHOACANO Administration Folic Acid 1 mg 07/08/24 09:00 07/10/24 08:10 Folic Acid 1 Mg Tablet PO 1 mg DAILY MICHOACANO Administration Glucagon 1 mg 07/07/24 20:04 Glucagon For Inj 1 Mg Vial IM PRN PRN Hypoglycemia Protocol Glucose 15 gm 07/07/24 20:04 Glucose Oral Gel 15 Gm Of Glucse In 37.5 Gm Tube PO PRN PRN Hypoglycemia Protocol Guaifenesin 600 mg 07/07/24 21:00 07/10/24 08:10 Guaifenesin 12 Hr 600 Mg Tabcr PO 600 mg Q12HR MICHOACANO Administration Hydroxyzine HCl 25 mg 07/07/24 21:48 07/09/24 08:50 Hydroxyzine Hcl 25 Mg Tablet PO 25 mg Q6H PRN Administration anxiety or itching Dextrose 1,000 mls @ 100 mls/hr 07/07/24 20:04 Dextrose 5% 1,000 Ml IVPB PRN PRN Hypoglycemia Protocol Meropenem 1 gm in 100 mls @ 200 mls/hr 07/10/24 08:00 07/10/24 09:33 IVPB Infused Q8HR MICHOACANO Infusion Insulin Aspart 3 - 6 units 07/10/24 08:00 07/10/24 08:12 Insulin Aspart (*Bkc) 100 Units/Ml SUB-Q Not Given [facility] Protocol Insulin Aspart 1 - 3 units 07/10/24 21:00 Insulin Aspart (*Bkc) 100 Units/Ml SUB-Q HS [facility] Protocol Insulin Glargine 15 units 07/10/24 21:00 Insulin Glargine (*Bkc) 100 Units/Ml SUB-Q HS MICHOACANO Lactulose 10 gm 07/07/24 22:10 07/10/24 08:10 Lactulose 20 Gm/30 Ml Udc PO 10 gm TID MICHOACANO Administration Lorazepam 2 mg 07/09/24 13:23 Lorazepam Inj (*Crx) 2 Mg/Ml Vial IV PUSH Q4H PRN Seizures Melatonin 10 mg 07/07/24 22:10 07/09/24 20:54 Melatonin 5 Mg Tablet PO 10 mg HS MICHOACANO Administration Nicotine 1 patch 07/07/24 22:10 07/10/24 08:10 Nicotine (*Pbkc) 14 Mg Patch TRANSDERM 1 patch DAILY MICHOACANO Administration Ondansetron HCl 4 mg 07/07/24 18:24 Ondansetron Inj 4 Mg/2 Ml Vial IV PUSH Q4H PRN Nausea Pantoprazole Sodium 40 mg 07/08/24 09:00 07/10/24 08:10 Pantoprazole 40 Mg Tablet PO 40 mg QAM MICHOACANO Administration Rifaximin 550 mg 07/07/24 22:10 07/10/24 08:10 Rifaximin 550 Mg Tablet PO 550 mg Q12HR MICHOACANO Administration Thiamine HCl 100 mg 07/08/24 09:00 07/10/24 08:10 Thiamine Hcl 100 Mg Tablet PO 100 mg DAILY MICHOACANO Administration Trazodone HCl 50 mg 07/07/24 22:10 07/08/24 20:40 Trazodone Hcl 50 Mg Tablet PO 50 mg HS MICHOACANO Administration Trazodone HCl 25 mg 07/07/24 22:10 07/08/24 20:40 Trazodone Hcl 25 Mg Tablet PO 25 mg HS MICHOACANO Administration Radiology Results: ITS Impressions Chest X-Ray 07/10/24 08:18 IMPRESSION: 1. Mild airspace opacities in right midlung zone, consistent with atelectasis versus pneumonia. Labs Labs: Laboratory Results - last 24 hr 07/09/24 07/09/24 07/09/24 11:38 11:41 13:08 WBC RBC Hgb Hct MCV MCH MCHC RDW Plt Count MPV Sodium Potassium Chloride Carbon Dioxide Anion Gap BUN Creatinine Estim Creat Clear Calc Estimated GFR Glucose POC Capillary Glucose > 500 H* > 500 H* > 500 H* Calcium Phosphorus Magnesium Total Bilirubin AST ALT Alkaline Phosphatase Ammonia Total Protein Albumin Nasal MRSA (PCR) Influenza A (RT-PCR) Influenza B (RT-PCR) RSV (RT-PCR) SARS-CoV-2 RNA (RT-PCR) 07/09/24 07/09/24 07/09/24 13:20 14:31 14:46 WBC RBC Hgb Hct MCV MCH MCHC RDW Plt Count MPV Sodium 135 L Potassium 3.4 Chloride 101 Carbon Dioxide 17 L Anion Gap 17 H BUN 12 Creatinine 0.50 L Estim Creat Clear Calc 96 Estimated GFR > 60 Glucose 506 H* POC Capillary Glucose 434 H Calcium 9.6 Phosphorus Magnesium Total Bilirubin AST ALT Alkaline Phosphatase Ammonia Total Protein Albumin Nasal MRSA (PCR) Not detected Influenza A (RT-PCR) Negative Influenza B (RT-PCR) Negative RSV (RT-PCR) Negative SARS-CoV-2 RNA (RT-PCR) Negative 07/09/24 07/09/24 07/09/24 15:33 15:36 16:54 WBC RBC Hgb Hct MCV MCH MCHC RDW Plt Count MPV Sodium 136 L Potassium 3.3 L Chloride 105 Carbon Dioxide 16 L Anion Gap 15 H BUN 11 Creatinine 0.51 L Estim Creat Clear Calc 94 Estimated GFR > 60 Glucose 351 H POC Capillary Glucose 331 H 192 H Calcium 9.3 Phosphorus 2.1 L Magnesium 1.7 Total Bilirubin AST ALT Alkaline Phosphatase Ammonia 27 Total Protein Albumin Nasal MRSA (PCR) Influenza A (RT-PCR) Influenza B (RT-PCR) RSV (RT-PCR) SARS-CoV-2 RNA (RT-PCR) 07/09/24 07/09/24 07/09/24 17:52 19:09 19:56 WBC RBC Hgb Hct MCV MCH MCHC RDW Plt Count MPV Sodium Potassium Chloride Carbon Dioxide Anion Gap BUN Creatinine Estim Creat Clear Calc Estimated GFR Glucose POC Capillary Glucose 162 H 205 H 236 H Calcium Phosphorus Magnesium Total Bilirubin AST ALT Alkaline Phosphatase Ammonia Total Protein Albumin Nasal MRSA (PCR) Influenza A (RT-PCR) Influenza B (RT-PCR) RSV (RT-PCR) SARS-CoV-2 RNA (RT-PCR) 07/09/24 07/09/24 07/09/24 20:28 21:00 22:00 WBC RBC Hgb Hct MCV MCH MCHC RDW Plt Count MPV Sodium 137 Potassium 4.1 Chloride 107 Carbon Dioxide 21 L Anion Gap 9 BUN 10 Creatinine 0.49 L Estim Creat Clear Calc 98 Estimated GFR > 60 Glucose 264 H POC Capillary Glucose 282 H 315 H Calcium 9.0 Phosphorus Magnesium Total Bilirubin AST ALT Alkaline Phosphatase Ammonia Total Protein Albumin Nasal MRSA (PCR) Influenza A (RT-PCR) Influenza B (RT-PCR) RSV (RT-PCR) SARS-CoV-2 RNA (RT-PCR) 07/09/24 07/09/24 07/10/24 23:21 23:59 00:57 WBC RBC Hgb Hct MCV MCH MCHC RDW Plt Count MPV Sodium Potassium Chloride Carbon Dioxide Anion Gap BUN Creatinine Estim Creat Clear Calc Estimated GFR Glucose POC Capillary Glucose 283 H 215 H 171 H Calcium Phosphorus Magnesium Total Bilirubin AST ALT Alkaline Phosphatase Ammonia Total Protein Albumin Nasal MRSA (PCR) Influenza A (RT-PCR) Influenza B (RT-PCR) RSV (RT-PCR) SARS-CoV-2 RNA (RT-PCR) 07/10/24 07/10/24 07/10/24 01:00 04:11 04:12 WBC 13.7 H RBC 3.80 L Hgb 12.6 Hct 37.2 MCV 97.9 MCH 33.2 MCHC 33.9 RDW 16.1 H Plt Count 115 L MPV 10.8 H Sodium 137 137 Potassium 3.8 3.7 Chloride 106 105 Carbon Dioxide 23 23 Anion Gap 8 9 BUN 10 9 Creatinine 0.44 L 0.43 L Estim Creat Clear Calc 107 109 Estimated GFR > 60 > 60 Glucose 161 H 106 POC Capillary Glucose 105 Calcium 9.2 9.3 Phosphorus Magnesium 1.5 L Total Bilirubin 2.2 H AST 54 H ALT 37 H Alkaline Phosphatase 125 Ammonia Total Protein 7.0 Albumin 3.3 L Nasal MRSA (PCR) Influenza A (RT-PCR) Influenza B (RT-PCR) RSV (RT-PCR) SARS-CoV-2 RNA (RT-PCR) 07/10/24 07:43 WBC RBC Hgb Hct MCV MCH MCHC RDW Plt Count MPV Sodium Potassium Chloride Carbon Dioxide Anion Gap BUN Creatinine Estim Creat Clear Calc Estimated GFR Glucose POC Capillary Glucose 104 Calcium Phosphorus Magnesium Total Bilirubin AST ALT Alkaline Phosphatase Ammonia Total Protein Albumin Nasal MRSA (PCR) Influenza A (RT-PCR) Influenza B (RT-PCR) RSV (RT-PCR) SARS-CoV-2 RNA (RT-PCR) Quality VTE Prophylaxis VTE prophylaxis: pharmacologic ordered
[2024-07-10 11:38] LABS: NT Pro B Type Natriuretic Pept 942 pg/mL (19.9-100)
[2024-07-10 11:42] LABS: Glucose Point of Care 224 mg/dl (65-105)
[2024-07-10] MEDS: INSULIN ASPART (*BKC) 100 UNITS/ML SUB-Q (12:01)
[2024-07-10 17:08] LABS: Glucose Point of Care 157 mg/dl (65-105)
[2024-07-10] MEDS: MELATONIN 5 MG TABLET 10 MG PO (21:29)
[2024-07-10] MEDS: INSULIN GLARGINE (*BKC) 100 UNITS/ML 15 UNITS SUB-Q (21:30)
[2024-07-10 21:40] LABS: Glucose Point of Care 198 mg/dl (65-105)
[2024-07-11] VITALS (9 sets, daily range): BP systolic 117–160; BP diastolic 63–90; PULSE 61–99; RESP 18; TEMP 36.2–37; O2SAT 90–96; BMI 24.3
[2024-07-11] MEDS: MEROPENEM 1 GM/NS 100 ML 1 GM/100 ML BAG IVPB (05:19)
[2024-07-11 07:09] LABS: Hematocrit 39.2 % (37.0-47.0); Immature Platelet Fraction Pct 3.1 % (0.9-11.2); Mean Corpuscular HGB Conc 33.2 g/dl (32-36); Mean Corpuscular Hemoglobin 32.6 pg (26-34); Mean Corpuscular Volume 98.2 fl (80-100); Mean Platelet Volume 10.3 fl (7.4-10.4); Platelet Count Result 106 k/mm3 (150-375); Red Blood Count 3.99 M/mm3 (4.2-5.4); Red Cell Distribution Width 15.4 % (11.5-14.5); White Blood Count 5.6 K/mm3 (4.5-10.0)
[2024-07-11 07:22] LABS: Alanine Aminotransferase 46 U/L (6-35); Albumin Level 2.9 g/dL (3.5-5.1); Alkaline Phosphatase 150 U/L (38-126); Anion Gap 8 mmol/L (4-12); Aspartate Amino Transferase 62 U/L (14-36); Blood Urea Nitrogen 8 mg/dL (7-17); Carbon Dioxide 25 mmol/L (22-30); Chloride 103 mmol/L (98-107); Estimated CRCL calculation 103 ml/min; Estimated Glomerular Filt Rate > 60; Glucose 100 mg/dL (65-110); Magnesium 1.3 mg/dL (1.6-2.3); Sodium 136 mmol/L (137-145)
[2024-07-11 07:53] LABS: Glucose Point of Care 103 mg/dl (65-105)
[2024-07-11] MEDS: BENZONATATE 100 MG CAPSULE PO ×2 (08:38→17:04)
[2024-07-11] MEDS: rifAXIMin 550 MG TABLET PO ×2 (08:38→21:16)
[2024-07-11] MEDS: FOLIC ACID 1 MG TABLET PO (08:38)
[2024-07-11] MEDS: THIAMINE HCL 100 MG TABLET PO (08:38)
[2024-07-11] MEDS: guaiFENesin 12 HR 600 MG TABCR PO ×2 (08:38→21:17)
[2024-07-11] MEDS: NICOTINE (*PBKC) 14 MG PATCH 1 PATCH TRANSDERM (08:38)
[2024-07-11] MEDS: PANTOPRAZOLE 40 MG TABLET PO (08:38)
--- NOTE | 2024-07-11 09:15 | P.CDI_ITS ---
CDI Query Clarification Request Encephalopathy has been documented. Please clarify type of encephalopathy: * Metabolic * Toxic * Hepatic * Hypertensive * Other * Unable to Determine Clinical Indicators:(7) Encephalopathy: Code(s): G93.40 - Encephalopathy, unspecified Status: Acute Assessment and Plan: Patient is drowsy but easily arousable and follows commands. Answers questions but is slightly confused. Exam is nonfocal. Patient received Ativan short while ago on the floor. I will hold all sedatives and monitor this time Check Ammonia Hypoxia has been documented Please review the clinical information below and clarify the respiratory diagnosis the patient is being treated for: * Hypoxia or hypoxemia without respiratory failure * Respiratory distress without respiratory failure * Acute respitaory failure with hypoxia * Acute respiratory failure with hypercapnia * Acute respiratory failure with hypoxia and hypercapnia * Acute on chronic respiratory failure with hypoxia * Acute on chronic respiratory failure with hypercapnia * Acute on chronic respiratory failure with hypoxia and hypercapnia * Acute respiratory distress syndrome (ARDS) * Chronic respiratory failure with hypoxia * Chronic respiratory failure with hypercapnia * Chronic respiratory failure with hypoxia and hypercapnia * Other explanation clinical findings, please specify * Unable to determine Progress Note: A&P Assessment and Plan (1) Hypoxia: Code(s): R09.02 - Hypoxemia Status: Acute Assessment and Plan: - CXR: No acute cardiopulmonary disease - EKG, initial: Sinus rhythm, rate 80, consider inferior infarct and anterior infarct age indeterminate, baseline artifact. When compared to EKG done on 04/30/2024, AFib no longer present. - WBC 4.3, hemoglobin 13.1 - viral PCR negative for flu/RSV/COVID - hypoxia noted on room air in the ED, 86%. - supplemental O2 to maintain O2 sat greater than 92%, wean as tolerated Suspect new hypoxia secondary to recent URI. Flu A has been prevalent at her current facility. No pneumonia on CXR. No leukocytosis. Will continue with scheduled steroids and nebulizer <Kimberlee Fuentes RN - Last Filed: 07/11/24 09:18> Clarified Diagnosis Clarified Diagnosis: Hepatic <Dwayne Montes MD - Last Filed: 07/11/24 17:19>
[2024-07-11] MEDS: GENTAMICIN SULFATE INJ 320 MG in DEXTROSE 5% 100 ML 100 MG IVPB (10:07)
[2024-07-11] MEDS: POTASSIUM CHLORIDE 20 MEQ ER TABLET 60 MEQ PO (10:07)
[2024-07-11 11:32] LABS: Glucose Point of Care 90 mg/dl (65-105)
[2024-07-11] MEDS: LACTULOSE 20 GM/30 ML UDC 10 GM PO (11:49)
[2024-07-11 13:06] LABS: Ammonia 31 umol/L (9-30)
[2024-07-11 13:07] LABS: Potassium 3.3 mmol/L (3.4-5.0)
--- NOTE | 2024-07-11 14:56 | PM.IMPN ---
Progress Note: A&P Assessment and Plan (1) DKA (diabetic ketoacidosis): Code(s): E11.10 - Type 2 diabetes mellitus with ketoacidosis without coma Status: Acute Assessment and Plan: Resolved Secondary to steroid Transferred to ICU and patient will be given IVF bolus and will be started on infusion Patient was treated with insulin infusion Serial labs were ordered Her anion gap has closed and patient has been transition to subcutaneous insulin now Diet has been continue (2) Diabetes mellitus: Qualifiers: Diabetes mellitus complication status: with hyperglycemia Diabetes mellitus [employer] insulin use: without [place] [facility] use Diabetes mellitus type: type 2 Qualified Code(s): E11.65 - Type 2 diabetes mellitus with hyperglycemia Code(s): E11.9 - Type 2 diabetes mellitus without complications Status: Chronic Assessment and Plan: See above (3) Alcoholic cirrhosis: Qualifiers: Ascites presence: unspecified Qualified Code(s): K70.30 - Alcoholic cirrhosis of liver without ascites Code(s): K70.30 - Alcoholic cirrhosis of liver without ascites Status: Acute Assessment and Plan: Continue thiamine lactulose folic (4) UTI (urinary tract infection): Qualifiers: Hematuria presence: without hematuria Urinary tract infection type: acute cystitis Qualified Code(s): N30.00 - Acute cystitis without hematuria Code(s): N39.0 - Urinary tract infection, site not specified Status: Acute Assessment and Plan: Urine cultures growing E coli which is ESBL. Switch Rocephin to meropenem Meropenem Dc'ed in ICU (5) URI (upper respiratory infection): Qualifiers: URI type: unspecified viral URI Qualified Code(s): J06.9 - Acute upper respiratory infection, unspecified Code(s): J06.9 - Acute upper respiratory infection, unspecified Status: Acute Assessment and Plan: Chest x-ray clear on admission and viral PCR panel was negative x 2 Continue guaifenesin bronchodilators Steroids have been stopped Bronchodilators Check BNP For further fluids Patient denies history of COPD or significant smoking Patient is already on broad-spectrum antibiotics (6) Electrolyte abnormality: Code(s): E87.8 - Other disorders of electrolyte and fluid balance, not elsewhere classified Status: Acute Assessment and Plan: Potassium replacement ordered (7) Encephalopathy: Code(s): G93.40 - Encephalopathy, unspecified Status: Acute Assessment and Plan: Patient is drowsy but easily arousable and follows commands. Answers questions but is slightly confused. Exam is nonfocal. Patient received Ativan short while ago on the floor. I will hold all sedatives and monitor this time Check Ammonia Plan DVT prophylaxis -Lovenox Stress ulcer prophylaxis -PPI Nutrition -diet ordered Code Status - Full Code Subjective Date/time seen: 07/11/24 14:56 Interval history: Reduced her Lantus from 15 U to 14 U also downgraded from moderate to low dose sliding scale. Review of Systems Review of Systems: All systems reviewed & are unremarkable except as noted in HPI and below (HPI) Exam Narrative: General: Pt is drowsy but arousable and in NAD Lungs/Chest: Trachea central Clear BS B/L, bilateral wheezing but when patient is calm and laying back the wheezing resolved Cardiac: RRR. Normal S1 S2. No murmurs Circulation: Pedal pulses are intact and symmetrical. Abdomen: Normal bowel sounds. Soft. NT. ND. Extremities: No clubbing, cyanosis or edema. Warm Neurologic: Follows commands. Moves all 4 extremities PERRL, AO x2 no FND Skin: No Rash Const: General: comfortable and no acute distress Other: , female, disheveled. Nontoxic appearance. HENMT: Face/Nose/Sinus: Normal nares present Mouth: Yes moist mucous membranes Eyes: General: appearance normal, both eyes and all related structures Sclera: sclerae normal Pupils: Equal, round and reactive pupils present EOM: EOMs intact bilaterally Resp: Other: exp wheeze, no crackles. +tachypnea without accessory muscle use. Cardio: Rate: regular rate Rhythm: regular rhythm Other: S1-S2 present without murmur, rub, ectopy GI: Other: Abdomen soft, nondistended, nontender. Skin: General skin exam: normal color and no rashes or lesions noted Wounds: no wounds Neuro: Cranial nerves: Yes Equal, round and reactive pupils present Speech: normal speech Motor exam (neuro): 5/5 motor strength present throughout Sensory Exam: normal sensation Other: A&O x4 Extrem: General: normal to inspection Other: Club like appearance to fingers. Psych: Mental Status: mental status grossly normal Affect: normal affect Other: Good insight and judgment, pleasant Objective Data Vital Signs Vital Signs: Vital Signs - 24 hr 07/10/24 16:00 07/10/24 16:02 07/10/24 20:00 Temperature 98.2 F Pulse Rate 76 99 75 Respiratory Rate 20 Blood Pressure 128/71 Pulse Oximetry 95 Oxygen Delivery Oxygen Flow Rate 07/10/24 22:00 07/11/24 00:00 07/11/24 04:00 Temperature 98.4 F Pulse Rate 77 99 61 Respiratory Rate 18 Blood Pressure 118/62 Pulse Oximetry 94 Oxygen Delivery Oxygen Flow Rate 07/11/24 06:00 07/11/24 08:00 07/11/24 08:00 Temperature 97.7 F Pulse Rate 67 64 Respiratory Rate 18 Blood Pressure 128/63 Pulse Oximetry 95 95 Oxygen Delivery Nasal Cannula Oxygen Flow Rate 2 07/11/24 12:00 07/11/24 12:33 07/11/24 14:00 Temperature 97.1 F L Pulse Rate 78 79 Respiratory Rate 18 Blood Pressure 117/71 Pulse Oximetry 96 92 Oxygen Delivery Room Air Oxygen Flow Rate Intake/Output Intake/Output: Intake & Output 07/08/24 07/09/24 07/10/24 07/11/24 23:59 23:59 23:59 23:59 Intake Total 770 2376.1 2468.6 480 Output Total 250 700 Balance 770 2126.1 1768.6 480 Meds/Results Medications: Active Medications Generic Name Dose Route Start Last Admin Trade Name Freq PRN Reason Stop Dose Admin Acetaminophen 650 mg 07/07/24 18:24 07/10/24 21:34 Acetaminophen 325 Mg Tablet PO 650 mg Q4H PRN Administration Mild Pain (1-3) or Fever Hydrocodone Bitart/Acetaminophen 1 tab 07/07/24 18:24 07/07/24 20:03 Hydrocodone/Acetaminophen (*Crx) 5-325 Mg Tablet PO 1 tab Q4H PRN Administration Pain Rated 4-6 Albuterol/Ipratropium 3 ml 07/09/24 14:31 07/10/24 14:25 Ipratropium 0.5 Mg/Albuterol Sulfate 2.5 Mg Ampul.Neb 3 Ml INHALATION 3 ml Q6HRT PRN Administration Wheezing Benzocaine 1 lozenge 07/07/24 20:04 Benzocaine/Menthol (*Bkc) 18 Ea Lozenge PO PRN PRN Sore Throat Benzonatate 100 mg 07/07/24 20:04 07/11/24 08:38 Benzonatate 100 Mg Capsule PO 100 mg TID PRN Administration Cough Dextrose 12.5 gm 07/07/24 20:04 Dextrose 50% 25 Gm/50 Ml Syringe IV PUSH PRN PRN Hypoglycemia Protocol Fluoxetine HCl 20 mg 07/08/24 09:00 07/09/24 08:50 Fluoxetine Hcl 20 Mg Capsule PO 20 mg QAM MICHOACANO Administration Folic Acid 1 mg 07/08/24 09:00 07/11/24 08:38 Folic Acid 1 Mg Tablet PO 1 mg DAILY MICHOACANO Administration Glucagon 1 mg 07/07/24 20:04 Glucagon For Inj 1 Mg Vial IM PRN PRN Hypoglycemia Protocol Glucose 15 gm 07/07/24 20:04 Glucose Oral Gel 15 Gm Of Glucse In 37.5 Gm Tube PO PRN PRN Hypoglycemia Protocol Guaifenesin 600 mg 07/07/24 21:00 07/11/24 08:38 Guaifenesin 12 Hr 600 Mg Tabcr PO 600 mg Q12HR MICHOACANO Administration Hydroxyzine HCl 25 mg 07/07/24 21:48 07/09/24 08:50 Hydroxyzine Hcl 25 Mg Tablet PO 25 mg Q6H PRN Administration anxiety or itching Dextrose 1,000 mls @ 100 mls/hr 07/07/24 20:04 Dextrose 5% 1,000 Ml IVPB PRN PRN Hypoglycemia Protocol Insulin Aspart 1 - 3 units 07/10/24 21:00 07/10/24 22:54 Insulin Aspart (*Bkc) 100 Units/Ml SUB-Q Not Given HS [facility] Protocol Insulin Glargine 14 units 07/11/24 21:00 Insulin Glargine (*Bkc) 100 Units/Ml SUB-Q HS [facility]HOACANO Lactulose 10 gm 07/07/24 22:10 07/11/24 11:49 Lactulose 20 Gm/30 Ml Udc PO 10 gm TID MICHOACANO Administration Lorazepam 2 mg 07/09/24 13:23 Lorazepam Inj (*Crx) 2 Mg/Ml Vial IV PUSH Q4H PRN Seizures Melatonin 10 mg 07/07/24 22:10 07/10/24 21:29 Melatonin 5 Mg Tablet PO 10 mg HS [facility]HOACANO Administration Nicotine 1 patch 07/07/24 22:10 07/11/24 08:38 Nicotine (*Pbkc) 14 Mg Patch TRANSDERM 1 patch DAILY [facility]HOACANO Administration Ondansetron HCl 4 mg 07/07/24 18:24 Ondansetron Inj 4 Mg/2 Ml Vial IV PUSH Q4H PRN Nausea Pantoprazole Sodium 40 mg 07/08/24 09:00 07/11/24 08:38 Pantoprazole 40 Mg Tablet PO 40 mg QAM [facility]HOACANO Administration Rifaximin 550 mg 07/07/24 22:10 07/11/24 08:38 Rifaximin 550 Mg Tablet PO 550 mg Q12HR [facility]HOACANO Administration Thiamine HCl 100 mg 07/08/24 09:00 07/11/24 08:38 Thiamine Hcl 100 Mg Tablet PO 100 mg DAILY [facility]ACANO Administration Trazodone HCl 50 mg 07/07/24 22:10 07/08/24 20:40 Trazodone Hcl 50 Mg Tablet PO 50 mg HS [facility]ACANO Administration Trazodone HCl 25 mg 07/07/24 22:10 07/08/24 20:40 Trazodone Hcl 25 Mg Tablet PO 25 mg HS MICHOACANO Administration Radiology Results: ITS Impressions Chest X-Ray 07/10/24 08:18 IMPRESSION: 1. Mild airspace opacities in right midlung zone, consistent with atelectasis versus pneumonia. Labs Labs: Laboratory Results - last 24 hr 07/10/24 07/10/24 07/11/24 16:42 21:15 06:47 WBC 5.6 RBC 3.99 L Hgb 13.0 Hct 39.2 MCV 98.2 MCH 32.6 MCHC 33.2 RDW 15.4 H Plt Count 106 L MPV 10.3 % Immature Plt Fraction 3.1 Sodium 136 L Potassium 3.0 L Chloride 103 Carbon Dioxide 25 Anion Gap 8 BUN 8 Creatinine 0.46 L Estim Creat Clear Calc 103 Estimated GFR > 60 Glucose 100 POC Capillary Glucose 157 H 198 H Calcium 8.0 L Magnesium 1.3 L Total Bilirubin 3.0 H AST 62 H ALT 46 H Alkaline Phosphatase 150 H Ammonia Total Protein 7.0 Albumin 2.9 L 07/11/24 07/11/24 07/11/24 07:41 11:25 12:46 WBC RBC Hgb Hct MCV MCH MCHC RDW Plt Count MPV % Immature Plt Fraction Sodium Potassium 3.3 L Chloride Carbon Dioxide Anion Gap BUN Creatinine Estim Creat Clear Calc Estimated GFR Glucose POC Capillary Glucose 103 90 Calcium Magnesium Total Bilirubin AST ALT Alkaline Phosphatase Ammonia 31 H Total Protein Albumin Quality VTE Prophylaxis VTE prophylaxis: pharmacologic ordered Hospitalist MIPS Advance Care Plan I have confirmed that the patient's Advanced Care Plan is present, code status is documented, or surrogate decision maker is listed in patient medical record.: Yes Medication Reconciliation I have utilized all available resources to obtain, update and review the patients current medications (includes all prescriptions, OTC, herbals, cannabis, and nutritional supplements).: Yes
[2024-07-11 16:22] LABS: Glucose Point of Care 128 mg/dl (65-105)
[2024-07-11] MEDS: hydrOXYzine HCL 25 MG TABLET PO (17:04)
[2024-07-11 21:14] LABS: Glucose Point of Care 160 mg/dl (65-105)
[2024-07-11] MEDS: traZODone HCL 50 MG TABLET PO (21:17)
[2024-07-11] MEDS: traZODone HCL 25 MG TABLET PO (21:17)
[2024-07-11] MEDS: MELATONIN 5 MG TABLET 10 MG PO (21:17)
[2024-07-11] MEDS: INSULIN GLARGINE (*BKC) 100 UNITS/ML 14 UNITS SUB-Q (21:18)
[2024-07-12] VITALS (9 sets, daily range): BP systolic 129–131; BP diastolic 67–76; PULSE 74–87; RESP 14–18; TEMP 36.8–36.9; O2SAT 93–94
[2024-07-12] MEDS: ACETAMINOPHEN 325 MG TABLET 650 MG PO ×2 (03:11→10:51)
[2024-07-12] MEDS: BENZONATATE 100 MG CAPSULE PO ×2 (03:11→07:40)
[2024-07-12 06:48] LABS: Alanine Aminotransferase 40 U/L (6-35); Alkaline Phosphatase 144 U/L (38-126); Anion Gap 9 mmol/L (4-12); Aspartate Amino Transferase 47 U/L (14-36); Bilirubin,Total 4.1 mg/dL (0.2-1.3); Blood Urea Nitrogen 9 mg/dL (7-17); Calcium 8.3 mg/dL (8.4-10.2); Carbon Dioxide 23 mmol/L (22-30); Chloride 101 mmol/L (98-107); Estimated CRCL calculation 105 ml/min; Estimated Glomerular Filt Rate > 60; Glucose 128 mg/dL (65-110); Magnesium 1.4 mg/dL (1.6-2.3); Potassium 3.2 mmol/L (3.4-5.0); Sodium 133 mmol/L (137-145)
[2024-07-12] MEDS: hydrOXYzine HCL 25 MG TABLET PO ×3 (06:56→21:04)
[2024-07-12] MEDS: rifAXIMin 550 MG TABLET PO ×2 (07:40→21:05)
[2024-07-12] MEDS: guaiFENesin 12 HR 600 MG TABCR PO ×2 (07:40→21:05)
[2024-07-12] MEDS: PANTOPRAZOLE 40 MG TABLET PO (07:40)
[2024-07-12] MEDS: FOLIC ACID 1 MG TABLET PO (07:40)
[2024-07-12] MEDS: NICOTINE (*PBKC) 14 MG PATCH 1 PATCH TRANSDERM (07:40)
[2024-07-12] MEDS: THIAMINE HCL 100 MG TABLET PO (07:41)
[2024-07-12 07:48] LABS: Glucose Point of Care 141 mg/dl (65-105)
[2024-07-12] MEDS: POTASSIUM CHLORIDE 20 MEQ ER TABLET 80 MEQ PO (10:51)
[2024-07-12 11:44] LABS: Glucose Point of Care 133 mg/dl (65-105)
--- NOTE | 2024-07-12 16:02 | PM.IMPN ---
Progress Note: A&P Assessment and Plan (1) DKA (diabetic ketoacidosis): Code(s): E11.10 - Type 2 diabetes mellitus with ketoacidosis without coma Status: Acute Assessment and Plan: Resolved Secondary to steroid Transferred to ICU and patient will be given IVF bolus and will be started on infusion Patient was treated with insulin infusion Serial labs were ordered Her anion gap has closed and patient has been transition to subcutaneous insulin now Diet has been continue (2) Diabetes mellitus: Qualifiers: Diabetes mellitus type: type 2 Diabetes mellitus [place] insulin use: without [place] [facility] use Diabetes mellitus complication status: with hyperglycemia Qualified Code(s): E11.65 - Type 2 diabetes mellitus with hyperglycemia Code(s): E11.9 - Type 2 diabetes mellitus without complications Status: Chronic Assessment and Plan: See above (3) Alcoholic cirrhosis: Qualifiers: Ascites presence: unspecified Qualified Code(s): K70.30 - Alcoholic cirrhosis of liver without ascites Code(s): K70.30 - Alcoholic cirrhosis of liver without ascites Status: Acute Assessment and Plan: Continue thiamine lactulose folic (4) UTI (urinary tract infection): Qualifiers: Hematuria presence: without hematuria Urinary tract infection type: acute cystitis Qualified Code(s): N30.00 - Acute cystitis without hematuria Code(s): N39.0 - Urinary tract infection, site not specified Status: Acute Assessment and Plan: Urine cultures growing E coli which is ESBL. Switch Rocephin to meropenem Meropenem Dc'ed in ICU (5) URI (upper respiratory infection): Qualifiers: URI type: unspecified viral URI Qualified Code(s): J06.9 - Acute upper respiratory infection, unspecified Code(s): J06.9 - Acute upper respiratory infection, unspecified Status: Acute Assessment and Plan: Chest x-ray clear on admission and viral PCR panel was negative x 2 Continue guaifenesin bronchodilators Steroids have been stopped Bronchodilators Check BNP For further fluids Patient denies history of COPD or significant smoking Patient is already on broad-spectrum antibiotics (6) Electrolyte abnormality: Code(s): E87.8 - Other disorders of electrolyte and fluid balance, not elsewhere classified Status: Acute Assessment and Plan: Potassium replacement ordered (7) Encephalopathy: Code(s): G93.40 - Encephalopathy, unspecified Status: Acute Assessment and Plan: Patient is drowsy but easily arousable and follows commands. Answers questions but is slightly confused. Exam is nonfocal. Patient received Ativan short while ago on the floor. I will hold all sedatives and monitor this time Check Ammonia Plan DVT prophylaxis -Lovenox Stress ulcer prophylaxis -PPI Nutrition -diet ordered Code Status - Full Code Subjective Date/time seen: 07/12/24 16:02 Interval history: Started on daily potassium. Less episodes of diarrhea. Holding Lactulose. Review of Systems Review of Systems: All systems reviewed & are unremarkable except as noted in HPI and below (HPI) Exam Narrative: General: Pt is drowsy but arousable and in NAD Lungs/Chest: Trachea central Clear BS B/L, bilateral wheezing but when patient is calm and laying back the wheezing resolved Cardiac: RRR. Normal S1 S2. No murmurs Circulation: Pedal pulses are intact and symmetrical. Abdomen: Normal bowel sounds. Soft. NT. ND. Extremities: No clubbing, cyanosis or edema. Warm Neurologic: Follows commands. Moves all 4 extremities PERRL, AO x2 no FND Skin: No Rash Const: General: comfortable and no acute distress Other: , female, disheveled. Nontoxic appearance. HENMT: Face/Nose/Sinus: Normal nares present Mouth: Yes moist mucous membranes Eyes: General: appearance normal, both eyes and all related structures Sclera: sclerae normal Pupils: Equal, round and reactive pupils present EOM: EOMs intact bilaterally Resp: Other: exp wheeze, no crackles. +tachypnea without accessory muscle use. Cardio: Rate: regular rate Rhythm: regular rhythm Other: S1-S2 present without murmur, rub, ectopy GI: Other: Abdomen soft, nondistended, nontender. Skin: General skin exam: normal color and no rashes or lesions noted Wounds: no wounds Neuro: Cranial nerves: Yes Equal, round and reactive pupils present Speech: normal speech Motor exam (neuro): 5/5 motor strength present throughout Sensory Exam: normal sensation Other: A&O x4 Extrem: General: normal to inspection Other: Club like appearance to fingers. Psych: Mental Status: mental status grossly normal Affect: normal affect Other: Good insight and judgment, pleasant Objective Data Vital Signs Vital Signs: Vital Signs - 24 hr 07/11/24 20:00 07/11/24 20:00 07/12/24 00:00 Temperature 98.6 F Pulse Rate 88 85 87 Respiratory Rate 18 Blood Pressure 160/90 H Pulse Oximetry 90 Oxygen Delivery 07/12/24 04:00 07/12/24 06:00 07/12/24 08:00 Temperature 98.4 F Pulse Rate 85 83 Respiratory Rate 16 Blood Pressure 129/69 Pulse Oximetry 93 Oxygen Delivery Room Air 07/12/24 08:00 07/12/24 14:00 Temperature 98.3 F Pulse Rate 80 79 Respiratory Rate 18 Blood Pressure 131/76 Pulse Oximetry 93 Oxygen Delivery Intake/Output Intake/Output: Intake & Output 07/09/24 07/10/24 07/11/24 07/12/24 23:59 23:59 23:59 23:59 Intake Total 2376.1 2468.6 720 566 Output Total 250 700 Balance 2126.1 1768.6 720 566 Meds/Results Medications: Active Medications Generic Name Dose Route Start Last Admin Trade Name Freq PRN Reason Stop Dose Admin Acetaminophen 650 mg 07/07/24 18:24 07/12/24 10:51 Acetaminophen 325 Mg Tablet PO 650 mg Q4H PRN Administration Mild Pain (1-3) or Fever Hydrocodone Bitart/Acetaminophen 1 tab 07/07/24 18:24 07/07/24 20:03 Hydrocodone/Acetaminophen (*Crx) 5-325 Mg Tablet PO 1 tab Q4H PRN Administration Pain Rated 4-6 Albuterol/Ipratropium 3 ml 07/09/24 14:31 07/10/24 14:25 Ipratropium 0.5 Mg/Albuterol Sulfate 2.5 Mg Ampul.Neb 3 Ml INHALATION 3 ml Q6HRT PRN Administration Wheezing Benzocaine 1 lozenge 07/07/24 20:04 Benzocaine/Menthol (*Bkc) 18 Ea Lozenge PO PRN PRN Sore Throat Benzonatate 100 mg 07/07/24 20:04 07/12/24 07:40 Benzonatate 100 Mg Capsule PO 100 mg TID PRN Administration Cough Dextrose 12.5 gm 07/07/24 20:04 Dextrose 50% 25 Gm/50 Ml Syringe IV PUSH PRN PRN Hypoglycemia Protocol Fluoxetine HCl 20 mg 07/08/24 09:00 07/12/24 07:41 Fluoxetine Hcl 20 Mg Capsule PO Not Given QAM MICHOACANO Folic Acid 1 mg 07/08/24 09:00 07/12/24 07:40 Folic Acid 1 Mg Tablet PO 1 mg DAILY [facility]HOACANO Administration Glucagon 1 mg 07/07/24 20:04 Glucagon For Inj 1 Mg Vial IM PRN PRN Hypoglycemia Protocol Glucose 15 gm 07/07/24 20:04 Glucose Oral Gel 15 Gm Of Glucse In 37.5 Gm Tube PO PRN PRN Hypoglycemia Protocol Guaifenesin 600 mg 07/07/24 21:00 07/12/24 07:40 Guaifenesin 12 Hr 600 Mg Tabcr PO 600 mg Q12HR MICHOACANO Administration Hydroxyzine HCl 25 mg 07/07/24 21:48 07/12/24 13:50 Hydroxyzine Hcl 25 Mg Tablet PO 25 mg Q6H PRN Administration anxiety or itching Dextrose 1,000 mls @ 100 mls/hr 07/07/24 20:04 Dextrose 5% 1,000 Ml IVPB PRN PRN Hypoglycemia Protocol Insulin Aspart 1 - 3 units 07/10/24 21:00 07/11/24 21:17 Insulin Aspart (*Bkc) 100 Units/Ml SUB-Q Not Given HS [facility] Protocol Insulin Aspart 2 - 5 units 07/11/24 17:00 07/12/24 11:45 Insulin Aspart (*Bkc) 100 Units/Ml SUB-Q Not Given TIDWM [facility]HOACANO Protocol Insulin Glargine 14 units 07/11/24 21:00 07/11/24 21:18 Insulin Glargine (*Bkc) 100 Units/Ml SUB-Q 14 units HS [facility]HOACANO Administration Lactulose 10 gm 07/07/24 22:10 07/11/24 11:49 Lactulose 20 Gm/30 Ml Udc PO 10 gm TID MICHOACANO Administration Lorazepam 2 mg 07/09/24 13:23 Lorazepam Inj (*Crx) 2 Mg/Ml Vial IV PUSH Q4H PRN Seizures Melatonin 10 mg 07/07/24 22:10 07/11/24 21:17 Melatonin 5 Mg Tablet PO 10 mg HS [facility]HOACANO Administration Nicotine 1 patch 07/07/24 22:10 07/12/24 07:40 Nicotine (*Pbkc) 14 Mg Patch TRANSDERM 1 patch DAILY MICHOACANO Administration Ondansetron HCl 4 mg 07/07/24 18:24 Ondansetron Inj 4 Mg/2 Ml Vial IV PUSH Q4H PRN Nausea Pantoprazole Sodium 40 mg 07/08/24 09:00 07/12/24 07:40 Pantoprazole 40 Mg Tablet PO 40 mg QAM MICHOACANO Administration Potassium Chloride 20 meq 07/13/24 08:00 Potassium Chloride 20 Meq Er Tablet PO DAILY@0800 MICHOACANO Rifaximin 550 mg 07/07/24 22:10 07/12/24 07:40 Rifaximin 550 Mg Tablet PO 550 mg Q12HR MICHOACANO Administration Thiamine HCl 100 mg 07/08/24 09:00 07/12/24 07:41 Thiamine Hcl 100 Mg Tablet PO 100 mg DAILY MICHOACANO Administration Trazodone HCl 50 mg 07/07/24 22:10 07/11/24 21:17 Trazodone Hcl 50 Mg Tablet PO 50 mg HS MICHOACANO Administration Trazodone HCl 25 mg 07/07/24 22:10 07/11/24 21:17 Trazodone Hcl 25 Mg Tablet PO 25 mg HS MICHOACANO Administration Radiology Results: ITS Impressions Chest X-Ray 07/10/24 08:18 IMPRESSION: 1. Mild airspace opacities in right midlung zone, consistent with atelectasis versus pneumonia. Labs Labs: Laboratory Results - last 24 hr 07/11/24 07/11/24 07/12/24 16:12 20:26 06:01 Sodium 133 L Potassium 3.2 L Chloride 101 Carbon Dioxide 23 Anion Gap 9 BUN 9 Creatinine 0.45 L Estim Creat Clear Calc 105 Estimated GFR > 60 Glucose 128 H POC Capillary Glucose 128 H 160 H Calcium 8.3 L Magnesium 1.4 L Total Bilirubin 4.1 H AST 47 H ALT 40 H Alkaline Phosphatase 144 H Total Protein 7.0 Albumin 3.0 L 07/12/24 07/12/24 07:44 11:38 Sodium Potassium Chloride Carbon Dioxide Anion Gap BUN Creatinine Estim Creat Clear Calc Estimated GFR Glucose POC Capillary Glucose 141 H 133 H Calcium Magnesium Total Bilirubin AST ALT Alkaline Phosphatase Total Protein Albumin Quality VTE Prophylaxis VTE prophylaxis: pharmacologic ordered Hospitalist MIPS Advance Care Plan I have confirmed that the patient's Advanced Care Plan is present, code status is documented, or surrogate decision maker is listed in patient medical record.: Yes Medication Reconciliation I have utilized all available resources to obtain, update and review the patients current medications (includes all prescriptions, OTC, herbals, cannabis, and nutritional supplements).: Yes
[2024-07-12 16:19] LABS: Glucose Point of Care 89 mg/dl (65-105)
[2024-07-12 20:27] LABS: Glucose Point of Care 192 mg/dl (65-105)
[2024-07-12] MEDS: MELATONIN 5 MG TABLET 10 MG PO (21:04)
[2024-07-12] MEDS: traZODone HCL 25 MG TABLET PO (21:05)
[2024-07-12] MEDS: traZODone HCL 50 MG TABLET PO (21:05)
[2024-07-12] MEDS: INSULIN GLARGINE (*BKC) 100 UNITS/ML 14 UNITS SUB-Q (21:07)
[2024-07-13] VITALS: PULSE 68
[2024-07-13 04:00] VITALS: PULSE 72
[2024-07-13 05:48] VITALS: BP 120/69; PULSE 76; RESP 14; TEMP 36.6; O2SAT 93
[2024-07-13 06:44] LABS: Hematocrit 40.4 % (37.0-47.0); Immature Platelet Fraction Pct 2.2 % (0.9-11.2); Mean Corpuscular HGB Conc 34.7 g/dl (32-36); Mean Corpuscular Hemoglobin 33.3 pg (26-34); Mean Platelet Volume 10.6 fl (7.4-10.4); Platelet Count Result 123 k/mm3 (150-375); Red Blood Count 4.21 M/mm3 (4.2-5.4); Red Cell Distribution Width 15.4 % (11.5-14.5); White Blood Count 4.9 K/mm3 (4.5-10.0)
[2024-07-13] MEDS: hydrOXYzine HCL 25 MG TABLET PO ×2 (06:46→13:28)
[2024-07-13 06:57] LABS: Alanine Aminotransferase 34 U/L (6-35); Alkaline Phosphatase 141 U/L (38-126); Anion Gap 10 mmol/L (4-12); Aspartate Amino Transferase 38 U/L (14-36); Bilirubin,Total 3.2 mg/dL (0.2-1.3); Blood Urea Nitrogen 10 mg/dL (7-17); Calcium 8.6 mg/dL (8.4-10.2); Carbon Dioxide 19 mmol/L (22-30); Chloride 105 mmol/L (98-107); Estimated CRCL calculation 109 ml/min; Estimated Glomerular Filt Rate > 60; Glucose 134 mg/dL (65-110); Magnesium 1.6 mg/dL (1.6-2.3); Potassium 3.8 mmol/L (3.4-5.0); Sodium 134 mmol/L (137-145)
[2024-07-13 07:37] LABS: Glucose Point of Care 142 mg/dl (65-105)
[2024-07-13 08:00] VITALS: PULSE 69
[2024-07-13] MEDS: PANTOPRAZOLE 40 MG TABLET PO (08:21)
[2024-07-13] MEDS: rifAXIMin 550 MG TABLET PO (08:21)
[2024-07-13] MEDS: ACETAMINOPHEN 325 MG TABLET 650 MG PO (08:21)
[2024-07-13] MEDS: BENZONATATE 100 MG CAPSULE PO (08:21)
[2024-07-13] MEDS: FOLIC ACID 1 MG TABLET PO (08:22)
[2024-07-13] MEDS: THIAMINE HCL 100 MG TABLET PO (08:22)
[2024-07-13] MEDS: POTASSIUM CHLORIDE 20 MEQ ER TABLET PO (08:22)
[2024-07-13] MEDS: guaiFENesin 12 HR 600 MG TABCR PO (08:22)
[2024-07-13 11:25] LABS: Glucose Point of Care 133 mg/dl (65-105)
[2024-07-13 13:33] LABS: SARS-CoV-2 RNA PCR Negative (Negative)
[2024-07-13 14:00] VITALS: BP 125/75; PULSE 63; RESP 16; TEMP 36.7; O2SAT 94
--- NOTE | 2024-07-13 14:35 | PM.DS ---
DS: Admitting Diagnosis Discharge Date 07/13/2024 Admitting Diagnosis Hypoxia DS: Discharge Diagnosis Discharge Diagnosis (1) DKA (diabetic ketoacidosis): Code(s): E11.10 - Type 2 diabetes mellitus with ketoacidosis without coma Status: Acute Assessment and Plan: Resolved Secondary to steroid Transferred to ICU and patient will be given IVF bolus and will be started on infusion Patient was treated with insulin infusion Serial labs were ordered Her anion gap has closed and patient has been transition to subcutaneous insulin now Diet has been continue (2) Diabetes mellitus: Qualifiers: Diabetes mellitus type: type 2 Diabetes mellitus half-way insulin use: without rodent exterminator use Diabetes mellitus complication status: with hyperglycemia Qualified Code(s): E11.65 - Type 2 diabetes mellitus with hyperglycemia Code(s): E11.9 - Type 2 diabetes mellitus without complications Status: Chronic Assessment and Plan: See above (3) Alcoholic cirrhosis: Qualifiers: Ascites presence: unspecified Qualified Code(s): K70.30 - Alcoholic cirrhosis of liver without ascites Code(s): K70.30 - Alcoholic cirrhosis of liver without ascites Status: Acute Assessment and Plan: Continue thiamine lactulose folic (4) UTI (urinary tract infection): Qualifiers: Hematuria presence: without hematuria Urinary tract infection type: acute cystitis Qualified Code(s): N30.00 - Acute cystitis without hematuria Code(s): N39.0 - Urinary tract infection, site not specified Status: Acute Assessment and Plan: Urine cultures growing E coli which is ESBL. Switch Rocephin to meropenem Meropenem Dc'ed in ICU (5) URI (upper respiratory infection): Qualifiers: URI type: unspecified viral URI Qualified Code(s): J06.9 - Acute upper respiratory infection, unspecified Code(s): J06.9 - Acute upper respiratory infection, unspecified Status: Acute Assessment and Plan: Chest x-ray clear on admission and viral PCR panel was negative x 2 Continue guaifenesin bronchodilators Steroids have been stopped Bronchodilators Check BNP For further fluids Patient denies history of COPD or significant smoking Patient is already on broad-spectrum antibiotics (6) Electrolyte abnormality: Code(s): E87.8 - Other disorders of electrolyte and fluid balance, not elsewhere classified Status: Acute Assessment and Plan: Potassium replacement ordered (7) Encephalopathy: Code(s): G93.40 - Encephalopathy, unspecified Status: Acute DS: Summary Hospital Course Hospital Course: 49 y/o F presents here with hypoxia and shortness of breath with PMH of atrial fibrillation, alcoholic hepatitis, esophageal varices, diabetes, anxiety, depression, chronic pancreatitis, chronic liver disease. The patient presents here from [facility] via EMS for further evaluation of hypoxia, cough, and shortness of breath. The patient attended rehab today where they noticed her O2 saturation was in the 80s on room air. While in transport, the patient received 1 breathing treatment. EMS reported the patient had audible wheezing upon their arrival. She reports the current hypoxia was precipitated by URI symptoms for the past 5 days. Symptoms included a nonproductive cough, shortness of breath, wheezing, body aches, chills, diarrhea, and nausea without vomiting. She denies fever. Per patient, large percentage of residents her [facility] currently have Flu A. While in the ED, the patient was placed back on room air and O2 dropped to 86%. Now on supplemental O2. Denies history of asthma, smoking, or COPD. Initial VS at presentation: 98.5? F, HR 81, RR 24, 151/69, and 97% on RA. ED workup showed: WBC 4.3, hemoglobin 13.1, potassium 3.1, creatinine 0.48 and GFR >60. Viral PCR negative. CXR showed no acute cardiopulmonary disease. Patient was treated for UTI which was treated with 1 dose of gentamicin. During the hospitalization patient was receiving steroid due to hypoxia which triggered DKA and was briefly admitted in ICU for a day. After the anion gap is closed patient was transferred back to floor. Currently patient is doing well. Patient HBa1C is 4.8 so not initiating any hyperglycemic agents. Patient has a long history of alcoholism which was recently exaggerated by her divorce. Patient reports currently she drinks continuously beer and hard liquor as well. Holding lactulose since the patient had recent episodes of diarrhea. Diarrhea resolved. Advised to continue lactulose as per PCP discretion. Patient high risk for readmission. Status at Discharge Cognitive/behavioral status at discharge: Stable Time Spent with Patient Time attestation: Total time spent providing and/or coordinating discharge services: 45 minutes Exam Narrative: General: Pt is drowsy but arousable and in NAD Lungs/Chest: Trachea central Clear BS B/L, bilateral wheezing but when patient is calm and laying back the wheezing resolved Cardiac: RRR. Normal S1 S2. No murmurs Circulation: Pedal pulses are intact and symmetrical. Abdomen: Normal bowel sounds. Soft. NT. ND. Extremities: No clubbing, cyanosis or edema. Warm Neurologic: Follows commands. Moves all 4 extremities PERRL, AO x2 no FND Skin: No Rash Const: General: comfortable and no acute distress Other: , female, disheveled. Nontoxic appearance. HENMT: Face/Nose/Sinus: Normal nares present Mouth: Yes moist mucous membranes Eyes: General: appearance normal, both eyes and all related structures Sclera: sclerae normal Pupils: Equal, round and reactive pupils present EOM: EOMs intact bilaterally Resp: Other: exp wheeze, no crackles. +tachypnea without accessory muscle use. Cardio: Rate: regular rate Rhythm: regular rhythm Other: S1-S2 present without murmur, rub, ectopy GI: Other: Abdomen soft, nondistended, nontender. Skin: General skin exam: normal color and no rashes or lesions noted Wounds: no wounds Neuro: Cranial nerves: Yes Equal, round and reactive pupils present Speech: normal speech Motor exam (neuro): 5/5 motor strength present throughout Sensory Exam: normal sensation Other: A&O x4 Extrem: General: normal to inspection Other: Club like appearance to fingers. Psych: Mental Status: mental status grossly normal Affect: normal affect Other: Good insight and judgment, pleasant DS: Data Data Completed and Pending Labs on day of discharge: Labs from last 24 hours 07/13/24 07/13/24 07/13/24 12:44 11:22 07:15 WBC RBC Hgb Hct MCV MCH MCHC RDW Plt Count MPV % Immature Plt Fraction Sodium Potassium Chloride Carbon Dioxide Anion Gap BUN Creatinine Estim Creat Clear Calc Estimated GFR Glucose POC Capillary Glucose 133 H 142 H Calcium Magnesium Total Bilirubin AST ALT Alkaline Phosphatase Total Protein Albumin SARS-CoV-2 RNA (RT-PCR) Negative 07/13/24 07/12/24 07/12/24 06:22 20:02 16:11 WBC 4.9 RBC 4.21 Hgb 14.0 Hct 40.4 MCV 96.0 MCH 33.3 MCHC 34.7 RDW 15.4 H Plt Count 123 L MPV 10.6 H % Immature Plt Fraction 2.2 Sodium 134 L Potassium 3.8 Chloride 105 Carbon Dioxide 19 L Anion Gap 10 BUN 10 Creatinine 0.43 L Estim Creat Clear Calc 109 Estimated GFR > 60 Glucose 134 H POC Capillary Glucose 192 H 89 Calcium 8.6 Magnesium 1.6 Total Bilirubin 3.2 H AST 38 H ALT 34 Alkaline Phosphatase 141 H Total Protein 7.0 Albumin 3.0 L SARS-CoV-2 RNA (RT-PCR) Imaging Radiologist's impression: ITS Impressions Chest X-Ray 07/07/24 15:05 IMPRESSION: 1. No acute cardiopulmonary disease. Chest X-Ray 07/10/24 08:18 IMPRESSION: 1. Mild airspace opacities in right midlung zone, consistent with atelectasis versus pneumonia. Discharge Plan Discharge Attending physician on discharge: Dwayne Montes Consulting providers: Adria Marvin Discharging Clinician: Dwayne Montes Anticipated Discharge Date/Time: 07/13/24 14:26 Patient Disposition: NH Shelter/Asst Living Activity: as tolerated Diet: regular Discharge Instructions: Started on Potassium 20 meq .Please do BMP in a week and continue if necessary. Check blood pressure 1 to 2 times a day. Record and bring into your doctor for review. Call your doctor if your blood pressure is greater than 180/110 or less than 90/45. Walk with cane or other assist device. Take precautions to avoid falls. Rise slowly from a lying or sitting position. Pause before standing or walking. Contact your doctor or call 911 and come to the Emergency Room if you have any type of trauma, lightheadedness with standing or other worrisome symptoms. Avoid NSAIDs (ibuprofen, naproxen, Aleve). Tylenol is safe to take. Follow-up with your primary care provider in 1-2 weeks. Please call for appointment. Thank you for using [facility] for your health care needs. Patient Instructions: Antibiotic Form Patient Language: Slovenian Stand Alone Forms: General Discharge Information Follow-up/Referrals: PHYSICIAN NOT ON STAFF,NONSTAFF [Primary Care Provider] - Discharge Medications: New benzonatate 100 mg Capsule 100 mg PO TID PRN (Reason: Cough) Qty: 30 0RF potassium chloride [K-Tab] 20 mEq Tablet Extended Release 20 meq PO DAILY@0800 Qty: 30 0RF Continued fluoxetine 20 mg/5 mL (4 mg/mL) solution 20 mg PO QAM folic acid 1 mg tablet 1 mg PO DAILY hydroxyzine HCl 25 mg tablet 25 mg PO PRN magnesium oxide-Mg AA chelate 300 mg capsule PO melatonin 10 mg capsule 10 mg PO HS nicotine 14 mg/24 hr patch 24 hour 1 patch transdermal DAILY pantoprazole 40 mg tablet,delayed release (DR/EC) 40 mg PO QAM trazodone 50 mg tablet 75 mg PO HS thiamine HCl (vitamin B1) 100 mg capsule 100 mg PO DAILY Xifaxan 550 mg tablet 550 mg PO BID Held lactulose 10 gram/15 mL solution 10 g PO TID Hold Instructions: Resume on 07/20/24. Restart if no diarrhea Other Ambulatory Orders: Basic Metabolic Panel (Routine) Timeframe: 1 Month Location: Determined by Patient Ordered By: Dwayne Montes Date of admission: 07/09/24 16:09 Primary Care Provider: PHYSICIAN NOT ON STAFF,NONSTAFF Admitting Provider: Manuel Parada Attending physician on admission: Manuel Parada Condition: Stable
== END 2024-07-13 16:00 | DRG 113 ==
LOC: ANHED 18:57 → ANH3MEDSUR 19:53 → ANHICU 07-09 14:19 → ANH3MEDSUR 07-11 10:38 → ANHICU 07-15 10:17
PROVIDERS: Internal Medicine; Student in an Organized Health Care Education/Training Program; Admitting Provider Hospitalist; Emergency Provider Emergency Medicine; Visit Provider General Practice
DX: J06.9 Acute upper respiratory infection, unspecified (principal); E11.10 Type 2 diabetes mellitus with ketoacidosis without coma; E11.65 Type 2 diabetes mellitus with hyperglycemia; T38.0X5A Adverse effect of glucocorticoids and synthetic analogues, initial encounter; K86.1 Other chronic pancreatitis; N39.0 Urinary tract infection, site not specified; B96.20 Unspecified Escherichia coli [E. coli] as the cause of diseases classified elsewhere; K76.82 Hepatic encephalopathy; R09.02 Hypoxemia; K70.10 Alcoholic hepatitis without ascites; K70.30 Alcoholic cirrhosis of liver without ascites; E87.8 Other disorders of electrolyte and fluid balance, not elsewhere classified; I48.91 Unspecified atrial fibrillation; Z20.822 Contact with and (suspected) exposure to COVID-19; Z59.00 Homelessness unspecified
CPT/HCPCS: 36415; 71045; 80048; 80053; 81001; 82140; 82948; 83036; 83735; 83880; 84100; 84132; 85025; 85027; 85055; 87086; 87186; 87635; 87637; 87641; 93005; 94640; 96361; 96374; 96375; 96376; 99285; A9270; G0378; J0696; J1580; J1815; J2060; J2185; J2919; J3480; J7030; J7040; J7120

== ENCOUNTER 2024-07-24 10:44 | Inpatient (IN) | payer OTHER, SELFPAY ==
[2024-07-24] VITALS (44 sets, daily range): BP systolic 120–167; BP diastolic 67–91; PULSE 52–68; RESP 12–22; TEMP 36.6–37.2; O2SAT 92–100; BMI 24.0
--- NOTE | ~2024-07-24 | XR_ITS ---
Clinical Indication: Weakness PA and lateral views of the chest: Comparison: 07/10/2024 Findings: The lungs are clear, without evidence of focal consolidation or pleural effusion. Cardiome diastinal silhouette is stable. Bones and soft tissues are unremarkable. Impression: Clear lungs. Reviewed, dictated and finalized at location . Impression: Clear lungs.
--- NOTE | ~2024-07-24 | CT_ITS ---
Non-contrast Head CT History: Headache COMPARISON: 04/28/2024 Technique: Axial non-contrast imaging of the brain was performed. Dose reduction technique was used on this scan by utilizing automated exposure control and iterative reconstruction technique. The dose -length product (DLP) was 605.33 mGy-cm. Findings: There is no evidence of intracranial hemorrhage, mass lesion, or acute infarct. Brain par enchyma appears normal. The ventricles and subarachnoid spaces are normal in size. The calvarium ap pears normal. The visualized paranasal sinuses and mastoid air cells are clear. Impression: No significant abnormality seen. Reviewed, dictated and finalized at location . Impression: No significant abnormality seen.
--- NOTE | 2024-07-24 10:47 | ECG_ITS ---
Test Date: 2024-07-24 10:52:02 Measurements Intervals [place] Rate: 63 P: 29 OK: 157 QRS: 16 QRSD: 96 T: 21 QT: 491 QTc: 505 Interpretive Statements SINUS RHYTHM PROLONGED QT INTERVAL Compared to ECG 07/07/2024 14:17:51 Prolonged QT interval now present Myocardial infarct finding no longer present Electronically Signed On 07-25-2024 11:11:23 CDT by Dannie Connor M.D.
--- OUTSIDE RECORDS SUMMARY | 2024-07-24 10:59 | XMS_ITS | Patient Health Summary ---
Author Organization [facility] Address [address] [place] [address] Care Team Providers Care Sales Support Representative Name Role Phone Unavailable Primary Care Provider Unavailabl e Note from [facility],non-owned Affiliates and Associated Physician Practices is amultiple site organization consisting of ambulatory clinics and hospital sitesin [place], [place], [place] and [place]. This disclosure is being madepursuant to the Care Everywhere program and may not contain all information available regarding this patient. Last updated 18.[facility] Allergies No known active allergies Medications * [...] needed for Cough * saline nasal spray ([place]; Baby [place]) 0.65 % nasal spray(Started 06/06/2024) [place] 1 (one) spray into each nostril every [...] care, and heating? Not very hard 05/03/2024 [facility] [place] [facility] Occupat ional Health - Occupational Stress [...] any time in the past 12 m [facility], were you homeless or living in a senior living (including now)? No 05/03/2024 Sex and Gender Information Value Date Recorded Sex Assigned at Not on file Gender Identity Female 05/03/2024 4:30 PM INSTRUMENT REPAIR TECHNICIAN Sexual Orientation Don't know 05/02/2024 9: 14 PM INSTRUMENT REPAIR TECHNICIAN Last Filed Vital Signs Vital Sign Reading Time Taken Comments Blood Pressure 126/64 06/05/2024 11:09 PM INSTRUMENT REPAIR TECHNICIAN Pulse 67 06/05/2024 11:09 PM INSTRUMENT REPAIR TECHNICIAN Temperature 36.7 C (98.1 F) 06/05/2024 2:11 PM INSTRUMENT REPAIR TECHNICIAN Respiratory Rate 16 06/04/2024 3:29 PM INSTRUMENT REPAIR TECHNICIAN Oxygen Saturation 92% 06/05/2024 11:09 PM INSTRUMENT REPAIR TECHNICIAN Inhaled Oxygen Concentration 40% 05/19/2024 1 2:53 PM INSTRUMENT REPAIR TECHNICIAN Weight 64.9 kg (143 lb) 06/03/2024 4:00 AM INSTRUMENT REPAIR TECHNICIAN Height 162.6 cm (5' 4 ) 05/02/2024 8:45 PM INSTRUMENT REPAIR TECHNICIAN Body Mass Index 24.55 05/02/2024 8:45 PM INSTRUMENT REPAIR TECHNICIAN Procedures * PT-INR [facility](Performed 06/05/2024) * PHOSPHORUS [...] ACID BLOOD(Performed 05/02/2024) Results * (ABNORMAL) PT-INR [facility] (06/05/2024 8:08 AM INSTRUMENT REPAIR TECHNICIAN) Only the most recent of22 resultswithin the time period is included. Pathologist [facility] [place] PT 16.9(H) 12.1 - 14.8 Seconds 06/05/2024 9:15 AM [facility] INR 1.4 See Comment 06/05/2024 9:15 AM [facility] Comment:The suggested therap eutic range for standard coumadin (warfarin) therapy is an INR of 2.0-3.0. For high-risk patients (Mechanical Mitral Valve Prosthesis, etc.), the suggested prophylactic therapeutic range is an INR of 2.5-3.5. Blood BLOOD SPECIMEN / Unknown Lab Venipuncture / Unknown 06/05/2024 8:08 AM INSTRUMENT REPAIR TECHNICIAN 06/05/2024 8:45 AM [facility] Neal Grossman MD LAB - COAGULATION OR DERABLES Performing Organization Address City/State/[facility] Co de Phone Number [facility] [address] [place] [address], [facility] [phone] * (ABNORMAL) COMPREHENSIVE METABOLIC PANEL (06/05/2024 8:08 AM [facility]) Only the most recent of35 resultswithin the time period is included. Pathologist [facility] [place] BUN 8 7 - 26 mg/dL 06/05/2024 9:15 AM [facility] Creatinine 0.56 0.56 - 0.96 mg/dL 06/05/2024 9:15 AM [facility] Sodium 136 136 - 145 mmol/L 06/05/2024 9:15 AM [facility] Potassium 3.7 3.5 - 4.5 mmol/L 06/05/2024 9:15 AM [facility] Chloride 108(H) 98 - 107 mmol/L 06/05/2024 9:15 AM [facility] CO2 20(L) 22 - 29 mmol/L 06/05/2024 9:15 AM [facility] Glucose 132(H) 70 - 99 mg/dL 06/05/2024 9:15 AM [facility] Calcium 8.3(L) 8.4 - 10.2 mg/dL 06/05/2024 9:15 AM [facility] Protein Total 6.2 6.0 - 8.3 g/dL 06/05/2024 9:15 AM [facility] Albumin 2.5(L) 3.4 - 5.0 g/dL 06/05/2024 9:15 AM [facility] Bilirubin Total 2.3(H) 0.2 - 1.2 mg/dL 06/05/2024 9:15 AM [facility] Alkaline Phosphatase 133 40 - 150 U/L 06/05/2024 9:15 AM [facility] ALT 30 5 - 55 U/L 06/05/2024 9:15 AM [facility] AST 38(H) 5 - 34 U/L 06/05/2024 9:15 AM [facility] Anion Gap 8 6 - 16 06/05/2024 9:15 AM [facility] BUN/Creatinine Ratio 14 7 - 23 06/05/2024 9:15 AM [facility] Osmolality Calculated 282 275 - 295 mOsm/kg 06/05/2024 9:15 AM [facility] Albumin/Globulin Ratio 0.7(L) 1.1 - 2.3 06/05/2024 9:15 AM [facility] eGFR by CKD-EPI >90 >=90 mL/min/1.7 3 m2 06/05/2024 9:15 AM [facility] Blood BLOOD SPECIMEN / Unknown Lab Venipuncture / Unknown 06/05/2024 8:08 AM [facility] 06/05/2024 8:46 AM [facility] Neal Grossman MD LAB - CHEMISTRY ORDE AMBROSIO [facility] Organization Address City/State/ZIP Co de Phone Number [facility] [address] [place] [phone], [facility] [phone] * PHOSPHORUS BLOOD (06/05/2024 8:08 AM [facility]) Only the most recent of34 resultswithin the time period is included. Phosphorus 3.3 2.9 - 5.1 mg/dL 06/05/2024 9:15 AM [facility] Blood BLOOD SPECIMEN / Unknown Lab Venipuncture / Unknown 06/05/2024 8:08 AM INSTRUMENT REPAIR TECHNICIAN 06/05/2024 8:46 AM INSTRUMENT REPAIR TECHNICIAN Neal Grossman MD LAB - CHEMISTRY NADIA [place] [facility] [address] [place] [address], [facility] [phone] * (ABNORMAL) MAGNESIUM BLOOD (06/05/2024 8:08 AM INSTRUMENT REPAIR TECHNICIAN) Only the most recent of34 resultswithin the time period is included. Pathologist [facility] [place] Magnesium 1.5(L) 1.6 - 2.6 mg/dL 06/05/2024 9:15 AM [facility] Blood BLOOD SPECIMEN / Unknown Lab Venipuncture / Unknown 06/05/2024 8:08 AM INSTRUMENT REPAIR TECHNICIAN 06/05/2024 8:46 AM INSTRUMENT REPAIR TECHNICIAN Neal Grossman MD LAB - CHEMISTRY NADIA VALENTE Performing Organization Address City/[facility]/ZIP Co de Phone Number [facility] [address] [place] [address], [facility] [phone] * (ABNORMAL) CBC W AUTO DIFFERENTIAL (05/31/2024 7:04 PM INSTRUMENT REPAIR TECHNICIAN) Only the most recent of30 resultswithin the time period is included. WBC 5.5 4.0 - 10.7 x10E9/L 05/31/2024 7:45 PM [facility] RBC Count 3.51(L) 3.90 - 5.20 x10E12/L 05/31/2024 7:45 PM [facility] Hemoglobin 11.7(L) 11.9 - 15.8 g/dL 05/31/2024 7:45 PM [facility] Hematocrit 33.9(L) 34.8 - 46.1 % 05/31/2024 7:45 PM [facility] MCV 96.6 80.0 - 98.0 fL 05/31/2024 7:45 PM [facility] MCH 33.3 26.7 - 33.6 pg 05/31/2024 7:45 PM [facility] MCHC 34.5 31.7 - 36.3 g/dL 05/31/2024 7:45 PM [facility] RDW-CV 16.4(H) 11.3 - 14.8 % 05/31/2024 7:45 PM [facility] Platelet Count 149(L) 150 - 420 x10E9/L 05/31/2024 7:45 PM [facility] MPV 10.8 7.8 - 11.4 fL 05/31/2024 7:45 PM [facility] Neutrophil % 55.1 41.0 - 74.0 % 05/31/2024 7:45 PM [facility] Lymphocyte % 25.1 17.0 - 47.0 % 05/31/2024 7:45 PM [facility] Monocyte % 13.9(H) 3.0 - 11.0 % 05/31/2024 7:45 PM [facility] Eosinophil % 4.5 0.0 - 7.0 % 05/31/2024 7:45 PM [facility] Basophil % 0.7 0.0 - 1.6 % 05/31/2024 7:45 PM [facility] Immature Granulocytes % 0.7 0.0 - 1.0 % 05/31/2024 7:45 PM [facility] Neutrophil Absolute 3.04 1.60 - 7.50 x10E9/L 05/31/2024 7:45 PM [facility] Lymphocyte Absolute 1.39 1.00 - 4.40 x10E9/L 05/31/2024 7:45 PM [facility] Monocyte Absolute 0.77 0.15 - 1.00 x10E9/L 05/31/2024 7:45 PM [facility] Eosinophil Absolute 0.25 0.00 - 0.60 x10E9/L 05/31/2024 7:45 PM [facility] Basophil Absolute 0.04 0.00 - 0.13 x10E9/L 05/31/2024 7:45 PM [facility] Blood BLOOD SPECIMEN / Unknown Lab Venipuncture / Unknown 05/31/2024 7:04 PM INSTRUMENT REPAIR TECHNICIAN 05/31/2024 7:31 PM INSTRUMENT REPAIR TECHNICIAN Neal Grossman MD LAB - HEMATOLOGY ORD ERABLES Performing Organization Address [facility]/ZIP Co de Phone Number [address] [address], [place] [phone] * (ABNORMAL) GLUCOSE - POINT OF CARE (05/23/2024 10:19 PM INSTRUMENT REPAIR TECHNICIAN) Only the most recent of70 resultswithin the time period is included. Glucose WB/POC 119(H) 70 - 99 mg/dL 05/24/2024 5:39 AM INSTRUMENT REPAIR TECHNICIAN [facility] Specimen Type Cap Fingerstick 2024 5:39 AM INSTRUMENT REPAIR TECHNICIAN [facility] Blood BLOOD SPECIMEN / Unknown 05/23/2024 10:19 PM INSTRUMENT REPAIR TECHNICIAN 05/24/2024 5:39 AM INSTRUMENT REPAIR TECHNICIAN Mitchel De MD LAB - POINT OF CARE ORDERABLES Performing Organization Address [facility]/ZIP Co de Phone Number [address] [address], [place] [phone] * PROCALCITONIN LEVEL (05/23/2024 3:06 PM INSTRUMENT REPAIR TECHNICIAN) Only the most recent of2 resultswithin the time period is included. PROCALCITONIN 0.03 <=0.10 ng/mL 05/23/2024 4:21 PM INSTRUMENT REPAIR TECHNICIAN [facility] Blood BLOOD SPECIMEN / Unknown Lab Venipuncture / Unknown 05/23/2024 3:06 PM INSTRUMENT REPAIR TECHNICIAN 05/23/2024 3:17 PM INSTRUMENT REPAIR TECHNICIAN Narrative [facility] - 05/23/2024 4:21 PM INSTRUMENT REPAIR TECHNICIAN The change in procalcitonin (PCT) concentration over [...] Change in Procalcitonin Calculator is available at [email or web address] If clinical picture has not improved and PCT remains high, reevaluate and consider treatment failure or other causes. Mitchel De MD LAB - CHEMISTRY ORDE AMBROSIO Performing Organization Address [facility] Co de Phone Number [address] [address], [facility] [phone] * SYPHILIS ANTIBODY CASCADING REFLEX (05/23/2024 3:06 PM INSTRUMENT REPAIR TECHNICIAN) Only the most recent of2 resultswithin the time period is included. Pathologist [facility] [place] Treponema pallidum Antibody Non-react grady Non-react grady 05/23/2024 3:59 PM INSTRUMENT REPAIR TECHNICIAN [facility] Comment: No Laboratory evidence of syphilis infection. Note: Circulating antibodies may be low or undetectable in early infection. If recent exposure is suspected, re-draw sample in 2-4 weeks and repeat testing. Blood BLOOD SPECIMEN / Unknown Lab Venipuncture / Unknown 05/23/2024 3:06 PM INSTRUMENT REPAIR TECHNICIAN 05/23/2024 3:17 PM INSTRUMENT REPAIR TECHNICIAN Mitchel De MD LAB - SEROLOGY ORDER GERALDO Performing Organization Address [facility]/ZIP Co de Phone Number [address] [address], [place] [phone] * (ABNORMAL) URINALYSIS REFLEX TO MICROSCOPIC NO CULTURE (05/23/2024 11:05 AM INSTRUMENT REPAIR TECHNICIAN) Color UA [place](A) Straw, Yellow 05/23/2024 3:42 PM INSTRUMENT REPAIR TECHNICIAN [facility] Clarity UA Slt Cloudy(A) Clear 05/23/2024 3:42 PM INSTRUMENT REPAIR TECHNICIAN [facility] Specific [place] UA 1.024 1.005 - 1.030 05/23/2024 3:42 PM [facility] Comment: Specific gravity results confirmed by refractometer. This is a corrected result. Previous result was >=1.030 on 05/23/2024 at 1129 INSTRUMENT REPAIR TECHNICIAN pH UA 5.5 5.0 - 8.0 pH 05/23/2024 3:42 PM [facility] Protein UA Negative Negative 05/23/2024 3:42 PM [facility] Glucose UA Negative Negative 05/23/2024 3:42 PM [facility] Ketone UA Trace(A) Negative 05/23/2024 3:42 PM [facility] Bilirubin UA 1+(A) Negative 05/23/2024 3:42 PM [facility] Comment:Urine Bilirubin resu lt confirmed by manual Ictotest. Blood UA Negative Negative 05/23/2024 3:42 PM [facility] Nitrite UA Positive(A) Negative 05/23/2024 3:42 PM [facility] Leukocyte Esterase Negative Negative 05/23/2024 3:42 PM [facility] Urobilinogen UA Negative Negative mg/dL 05/23/2024 3:42 PM [facility] RBC UA 6-10(A) None Seen, 0-2, 3-5 /HPF 05/23/2024 3:42 PM [facility] WBC UA 11-20(A) None Seen, 0-5 /HPF 05/23/2024 3:42 PM [facility] Bacteria UA 1+(A) None /HPF 05/23/2024 3:42 PM [facility] Yeast Budding UA Moderate(A) None /HPF 025 3:42 PM [facility] Squamous Epithelial Cells UA 3-5 None Seen, 0-2, 3-5 /HPF 05/23/2024 3:42 PM [facility] Mucus UA 4+ /LPF 05/23/2024 3:42 PM [facility] Hyaline Casts UA 3-5(A) None Seen, 0-2 /LPF 05/23/2024 3:42 PM [facility] Urine URINE SPECIMEN OBTAINED BY CLEAN CATCH PROCEDURE / Unknown Collection / Unknown 05/23/2024 11:05 AM INSTRUMENT REPAIR TECHNICIAN 05/23/2024 11:08 AM INSTRUMENT REPAIR TECHNICIAN Narrative [facility] - 05/23/2024 3:42 PM INSTRUMENT REPAIR TECHNICIAN Mitchel De MD LAB - URINALYSIS ORD ERABLES [facility] [address] [place] [address], [place] [phone] * (ABNORMAL) VITAMIN B12 (05/23/2024 6:20 AM INSTRUMENT REPAIR TECHNICIAN) Only the most recent of2 resultswithin the time period is included. Vitamin B12 >2,000(H) 213 - 816 pg/mL 05/23/2024 10:40 AM INSTRUMENT REPAIR TECHNICIAN [facility] Blood BLOOD SPECIMEN / Unknown Venipuncture / Unknown 05/23/2024 6:20 AM INSTRUMENT REPAIR TECHNICIAN 05/23/2024 6:45 AM INSTRUMENT REPAIR TECHNICIAN Mitchel De MD LAB - CHEMISTRY ORDE RABLES [facility] [address] [place] [address], [place] [phone] * CT Head Wo Contrast (05/19/2024 10:03 AM INSTRUMENT REPAIR TECHNICIAN) Anatomical Region Laterality Modality Head Computed Tomogra phy 05/19/2024 10:2 7 AM INSTRUMENT REPAIR TECHNICIAN Impressions 05/19/2024 10:31 AM INSTRUMENT REPAIR TECHNICIAN IMPRESSION: 1. No acute intracranial process. 2. Chronic small vessel ischemic disease of the brain with cerebral volume loss. > Interpreting Provider: Albert Xiong MD on 05/19/2024 10:31 AM Narrative 05/19/2024 10:31 AM INSTRUMENT REPAIR TECHNICIAN PROCEDURE: CT HEAD WO CONTRAST, DATE/TIME OF EXAM: 05/19/2024 10:05 AM, LOCATION [facility] INDICATION: G93.40: Encephalopathy, unspecified type ADDITIONAL CLINICAL [...] OF EXAM: 05/19/2024 10:05 AM, LOCATION [facility] INDICATION: G93.40: Encephalopathy, unspecified type ADDITIONAL CLINICAL [...] (ABNORMAL) HGB HCT PANEL (05/18/2024 12:26 PM INSTRUMENT REPAIR TECHNICIAN) Hemoglobin 16.6(H) 11.9 - 15.8 g/dL 05/18/2024 12:52 PM INSTRUMENT REPAIR TECHNICIAN [facility] Hematocrit 50.3(H) 34.8 - 46.1 % 05/18/2024 12:52 PM INSTRUMENT REPAIR TECHNICIAN [facility] Blood BLOOD SPECIMEN / Unknown Lab Venipuncture / Unknown 05/18/2024 12:26 PM INSTRUMENT REPAIR TECHNICIAN 05/18/2024 12:48 PM INSTRUMENT REPAIR TECHNICIAN Mitchel De MD LAB - HEMATOLOGY ORD ERABLES [address] [address], [facility] [phone] * CK BLOOD (05/18/2024 12:26 PM INSTRUMENT REPAIR TECHNICIAN) Pathologist [facility] [place] CK Total 30 30 - 200 U/L 05/18/2024 1:21 PM INSTRUMENT REPAIR TECHNICIAN [facility] Blood BLOOD SPECIMEN / Unknown Lab Venipuncture / Unknown 05/18/2024 12:26 PM INSTRUMENT REPAIR TECHNICIAN 05/18/2024 12:53 PM INSTRUMENT REPAIR TECHNICIAN Mitchel De MD LAB - CHEMISTRY ORDE RABLES Performing Organization Address City/[facility]/ZIP Co de Phone Number [address] [address], [place] [phone] * XR Abdomen Kub Portable (05/18/2024 10:38 AM INSTRUMENT REPAIR TECHNICIAN) Only the most recent of4 resultswithin the time period is included. Anatomical Region Laterality Modality Abdomen Digital Radiogra phy 05/18/2024 11:5 5 AM INSTRUMENT REPAIR TECHNICIAN Narrative 05/18/2024 5:41 PM INSTRUMENT REPAIR TECHNICIAN PROCEDURE: XR ABDOMEN KUB PORTABLE DATE/TIME OF EXAM: 05/18/2024 10:39 AM Indication: R63.8: Alteration in nutrition associated with tube feeding Additional History: COMPARISON: Abdominal x-ray 05/12/2024 FINDINGS/IMPRESSION: Weighted tip feeding tube courses below the diaphragm and terminates in the gastric fundus, mildly retracted compared to prior abdominal x-ray. Report dictated by Milad Perales MD (vice president of advertising). Mckenna Aly MD have personally reviewed and [...] x-ray. Report dictated by Milad Perales MD (vice president of advertising). Mckenna Aly MD have personally reviewed and interpreted this examination/study. > Interpreting Provider: Mckenna Alva MD on 05/18/2024 5:41 PM Mitchel De MD DIAGNOSTIC IMAGING O RDERABLES * XR Chest 1Vw Portable (05/18/2024 4:33 AM INSTRUMENT REPAIR TECHNICIAN) Only the most recent of6 resultswithin the time period is included. Anatomical Region Laterality Modality Chest Digital Radiogra phy 05/18/2024 1:20 PM INSTRUMENT REPAIR TECHNICIAN Narrative 05/19/2024 12:31 AM INSTRUMENT REPAIR TECHNICIAN PROCEDURE: XR CHEST 1VW PORTABLE, DATE/TIME OF EXAM: 05/18/2024 4:33 AM, LOCATION [facility] INDICATION: J96.01: Acute respiratory failure with hypoxia [...] normal. > Dictated by Ahestrella MOREJON, FRCR (vice president of advertising). Celestine Aly MD have personally reviewed and interpreted this examination/study. > Interpreting Provider: Celestine Ro MD on 05/19/2024 12:31 AM Procedure Note Celestine Ro MD - 05/19/2024 PROCEDURE: XR CHEST 1VW PORTABLE, DATE/TIME OF EXAM: 05/18/2024 4:33 AM, LOCATION [facility] INDICATION: J96.01: Acute respiratory failure with hypoxia [...] normal. > Dictated by Julian MOREJON YORDAN (vice president of advertising). Celestine Aly MD have personally reviewed and interpreted this examination/study. > Interpreting Provider: Celestine Ro MD on 05/19/2024 12:31 AM Mitchel De MD DIAGNOSTIC IMAGING O RDERABLES * EKG 12-LEAD (05/16/2024 5:03 PM INSTRUMENT REPAIR TECHNICIAN) Only the most recent of2 resultswithin the time period is included. Ventricular Rate 92 BPM [facility] MUSE Atrial Rate 92 BPM [facility] MUSE P-R Interval 148 ms [facility] MUSE QRS Duration ms 78 ms [facility] MUSE Q-T Interval ms 392 ms [facility] MUSE QTC Calculation (Bezet) 484 ms [facility] MUSE Calculated P [place] 46 degrees [facility] MUSE Calculated R [place] 30 degrees [facility] MUSE Calculated T [place] 12 degrees [facility] MUSE Interpretation EKG NORMAL SINUS RHYTHM PROLONGED QT ABNORMAL ECG WHEN COMPARED WITH ECG OF 13-MAY-2024 06:43, NO SIGNIFICANT CHANGE WAS FOUND Confirmed by EMIL RIVERA MD ([id number]) on 05/18/2024 2:55:51 PM [facility] MUSE 05/16/2024 5:03 PM INSTRUMENT REPAIR TECHNICIAN 05/18/2024 2:55 PM INSTRUMENT REPAIR TECHNICIAN Nuha Segal MD ECG ORDERABLES [facility] MUSE * AMMONIA (05/16/2024 4:41 PM INSTRUMENT REPAIR TECHNICIAN) Only the most recent of2 resultswithin the time period is included. Ammonia 49 <=72 umol/L 05/16/2024 5:02 PM INSTRUMENT REPAIR TECHNICIAN [facility] Blood BLOOD SPECIMEN / Unknown Venipuncture / Unknown 05/16/2024 4:41 PM INSTRUMENT REPAIR TECHNICIAN 05/16/2024 5:02 PM INSTRUMENT REPAIR TECHNICIAN Nuha Segal MD LAB - CHEMISTRY ORDE RABLES Performing Organization Address City/[facility]/ZIP Co de Phone Number [address] [address], [facility] [phone] * (ABNORMAL) BLOOD GASES ART + COOX PANEL (05/16/2024 4:23 PM INSTRUMENT REPAIR TECHNICIAN) Only the most recent of6 resultswithin the time period is included. pH Arterial 7.43 7.35 - 7.45 pH 05/16/2024 4:38 PM [facility] pO2 Arterial 133(H) 80 - 100 mmHg 05/16/2024 4:38 PM [facility] pCO2 Arterial 34(L) 35 - 45 mmHg 4:38 PM [facility] HCO3 Arterial 22.6 20.0 - 30.0 mmol/L 05/16/2024 4:38 PM [facility] BE Arterial -0.9 -2.0 - 2.0 mmol/L 05/16/2024 4:38 PM [facility] Oxyhemoglobin Arterial 96.9 % 05/16/2024 4:38 PM [facility] Dexoyhemoglobin (HHB) % <1.0 % 05/16/2024 4:38 PM [facility] Methemoglobin <0.8 0.0 - 2.0 % 05/16/2024 4:38 PM [facility] Carboxyhemoglobin 2.1(H) 0.0 - 2.0 % 2023 4:38 PM [facility] O2 Content Arterial 23.9 Interpret within clinical context ml/dL 05/16/2024 4:38 PM [facility] Hemoglobin by COOX 17.4(H) 12.0 - 15.6 g/dL 05/16/2024 4:38 PM [facility] O2 Saturation Arterial 100 90 - 100 % 05/16/2024 4:38 PM [facility] FI O2 Arterial 100.0 % 05/16/2024 4:38 PM [facility] Blood, arterial ARTERIAL BLOOD SPECIMEN / Unknown Arterial Puncture / Unknown 05/16/2024 4:23 PM INSTRUMENT REPAIR TECHNICIAN 05/16/2024 4:28 PM [facility] - 05/16/2024 4:38 PM [facility] Carboxyhemoglobin Normal Concentration: Non-smokers: 0-2%; Smokers: 0-9%; Toxic: >20% Nuha Segal MD LAB - BLOOD GASES OR DERABLES [facility] [address] [place] [address], [facility] [phone] * (ABNORMAL) BASIC METABOLIC PANEL (CALCIUM TOTAL) (05/16/2024 4:12 PM INSTRUMENT REPAIR TECHNICIAN) BUN 21 7 - 26 mg/dL 05/16/2024 5:16 PM [facility] Creatinine 0.70 0.56 - 0.96 mg/dL 05/16/2024 5:16 PM [facility] Sodium 148(H) 136 - 145 mmol/L 05/16/2024 5:16 PM [facility] Potassium 3.8 3.5 - 4.5 mmol/L 05/16/2024 5:16 PM [facility] Chloride 118(H) 98 - 107 mmol/L 05/16/2024 5:16 PM [facility] CO2 20(L) 22 - 29 mmol/L 05/16/2024 5:16 PM [facility] Glucose 148(H) 70 - 99 mg/dL 05/16/2024 5:16 PM [facility] Calcium 9.9 8.4 - 10.2 mg/dL 05/16/2024 5:16 PM [facility] Anion Gap 10 6 - 16 05/16/2024 5:16 PM [facility] BUN/Creatinine Ratio 30(H) 7 - 23 05/16/2024 5:16 PM [facility] Osmolality Calculated 312(H) 275 - 295 mOsm/kg 05/16/2024 5:16 PM [facility] eGFR by CKD-EPI >90 >=90 mL/min/1.7 3 m2 05/16/2024 5:16 PM [facility] Blood BLOOD SPECIMEN / Unknown Lab Venipuncture / Unknown 05/16/2024 4:12 PM INSTRUMENT REPAIR TECHNICIAN 05/16/2024 4:30 PM INSTRUMENT REPAIR TECHNICIAN Nuha Segal MD LAB - CHEMISTRY [facility]IA [facility] Performing Organization Address City/[facility]/ZIP Co de Phone Number [facility] [address] [place] [address], [place] [phone] * PTT [facility] (05/16/2024 6:20 AM INSTRUMENT REPAIR TECHNICIAN) Only the most recent of3 resultswithin the time period is included. APTT 34.8 23.0 - 38.4 Seconds 05/16/2024 6:59 AM [facility] Comment:Suggested therapeuti c range for full dose I.V. unfractionated heparin therapy for venous thromboembolism is 71 to 109 seconds. Blood BLOOD SPECIMEN / Unknown Lab Venipuncture / Unknown 05/16/2024 6:20 AM INSTRUMENT REPAIR TECHNICIAN 05/16/2024 6:34 AM INSTRUMENT REPAIR TECHNICIAN Hiren Matias MD LAB - COAGULATION OR DERABLES [facility] [address] [place] [address], [place] [phone] * [facility] (05/14/2024 4:05 PM INSTRUMENT REPAIR TECHNICIAN) Ferritin 534 ng/mL 05/14/2024 5:13 PM INSTRUMENT REPAIR TECHNICIAN [facility] Blood BLOOD SPECIMEN / Unknown Lab Venipuncture / Unknown 05/14/2024 4:05 PM INSTRUMENT REPAIR TECHNICIAN 05/14/2024 4:11 PM INSTRUMENT REPAIR TECHNICIAN Hiren Matias MD LAB - CHEMISTRY NADIA VALENTE [facility] [address] [place] [address], [place] [phone] * MRSA DNA PCR (05/14/2024 2:47 PM INSTRUMENT REPAIR TECHNICIAN) MRSA DNA by PCR Not detected Not detected 05/14/2024 7:24 PM INSTRUMENT REPAIR TECHNICIAN [facility] Microbiology SPECIMEN FROM NASAL FOSSAE / Unknown Collection / Unknown 05/14/2024 2:47 PM INSTRUMENT REPAIR TECHNICIAN 05/14/2024 2:51 PM INSTRUMENT REPAIR TECHNICIAN Narrative [facility] - 05/14/2024 7:24 PM INSTRUMENT REPAIR TECHNICIAN Methicillin-resistant Staphylococcus aureus (MRSA) DNA is not detected (presumed not colonized with MRSA). Jun Allen MD LAB - MICROBIOLOGY O RDERABLES Performing Organization Address City/[facility]/ZIP Co de Phone Number [facility] [address] [place] [address], [facility] [phone] * (ABNORMAL) BLOOD GASES PAT + COOX PANEL (05/14/2024 2:46 PM INSTRUMENT REPAIR TECHNICIAN) pH Venous 7.51(H) 7.32 - 7.42 pH 05/14/2024 2:56 PM INSTRUMENT REPAIR TECHNICIAN [facility] pO2 Venous 53(H) 35 - 40 mmHg 05/14/2024 2:56 PM [facility] pCO2 Venous 29(L) 40 - 50 mmHg 05/14/2024 2:56 PM [facility] HCO3 Venous 23.1 20 - 30 mmol/L 05/14/2024 2:56 PM [facility] Base Excess Venous 1.2 -2.0 - 2.0 mmol/L 05/14/2024 2:56 PM [facility] Oxyhemoglobin Venous 81.8 % 04/18 2:56 PM [facility] Deoxyhemoglobin (HHB) Venous % 15.4 % 05/14/2024 2:56 PM [facility] Methemoglobin 1.1 0.0 - 2.0 % 05/14/2024 2:56 PM [facility] Carboxyhemoglobin 1.7 0.0 - 2.0 % 2023 2:56 PM [facility] O2 Content Venous 17.2 Interpret within clinical context ml/dL 05/14/2024 2:56 PM [facility] Hemoglobin by COOX 15.0 g/dL 2023 2:56 PM [facility] O2 Saturation Venous 84 >=70 % 04/18 2:56 PM [facility] FI O2 Mixed Venous 36.0 % 2023 2:56 PM [facility] Blood BLOOD SPECIMEN / Unknown Venipuncture / Unknown 05/14/2024 2:46 PM INSTRUMENT REPAIR TECHNICIAN 05/14/2024 2:51 PM INSTRUMENT REPAIR TECHNICIAN [facility] - 05/14/2024 2:56 PM INSTRUMENT REPAIR TECHNICIAN Carboxyhemoglobin Normal Concentration: Non-smokers: 0-2%; Smokers: 0-9%; Toxic: >20% Nuha Segal MD LAB - BLOOD GASES OR DERABLES [address] [address], [facility] [phone] * (ABNORMAL) BILIRUBIN DIRECT (05/14/2024 6:23 AM INSTRUMENT REPAIR TECHNICIAN) Bilirubin Conjugated 1.4(H) 0.1 - 0.5 mg/dL 05/14/2024 7:16 AM [facility] Blood BLOOD SPECIMEN / Unknown Lab Venipuncture / Unknown 05/14/2024 6:23 AM INSTRUMENT REPAIR TECHNICIAN 05/14/2024 6:42 AM INSTRUMENT REPAIR TECHNICIAN Hiren Matias MD LAB - CHEMISTRY NADIA [facility]ENTE [address] [address], [facility] [phone] * CULTURE SPUTUM+GRAM STAIN (05/11/2024 1:48 PM INSTRUMENT REPAIR TECHNICIAN) Only the most recent of2 resultswithin the time period is included. Pathologist [facility] [place] Culture Rare normal oropharyngeal catarino SAURABH 05/13/2024 10:26 AM [facility] Gram Stain Light Polymorphonuclear cells 05/13/2024 10:26 AM INSTRUMENT REPAIR TECHNICIAN [facility] Gram Stain No organisms seen 024 10:26 AM [facility] Microbiology SPUTUM / Unknown Collection / Unknown 05/11/2024 1:48 PM INSTRUMENT REPAIR TECHNICIAN 05/11/2024 2:03 PM INSTRUMENT REPAIR TECHNICIAN Hiren Matias MD LAB - MICROBIOLOGY O RDERABLES [facility] [address] [place] [address], [facility] [phone] * (ABNORMAL) DIFFERENTIAL MANUAL (05/06/2024 12:01 AM INSTRUMENT REPAIR TECHNICIAN) Only the most recent of3 resultswithin the time period is included. Neutrophil % 60 41 - 74 % 05/06/2024 2:01 AM [facility] Lymphocyte % 18 17 - 47 % 05/06/2024 2:01 AM [facility] Monocyte % 18(H) 3 - 11 % 05/06/2024 2:01 AM [facility] Eosinophil % 3 0 - 7 % 05/06/2024 2:01 AM [facility] Basophil % 1 0 - 2 % 05/06/2024 2:01 AM [facility] Neutrophil Absolute 4.86 1.60 - 7.50 x10E9/L 05/06/2024 2:01 AM [facility] Lymphocyte Absolute 1.46 1.00 - 4.40 x10E9/L 05/06/2024 2:01 AM [facility] Monocyte Absolute 1.46(H) 0.15 - 1.00 x10E9/L 05/06/2024 2:01 AM [facility] Eosinophil Absolute 0.24 0.00 - 0.60 x10E9/L 05/06/2024 2:01 AM [facility] Basophil Absolute 0.08 0.00 - 0.13 x10E9/L 05/06/2024 2:01 AM [facility] RBC Morphology REVIEWED 05/06/2024 2:01 AM [facility] Macrocytosis MODERATE(A) (none) 05/06/2024 2:01 AM [facility] Polychromatic Cells MODERATE(A) (none) 05/06/2024 2:01 AM [facility] Schistocytes FEW(A) (none) 05/06/2024 2:01 AM [facility] Blood BLOOD SPECIMEN / Unknown Venipuncture / Unknown 05/06/2024 12:01 AM INSTRUMENT REPAIR TECHNICIAN 05/06/2024 12:39 AM INSTRUMENT REPAIR TECHNICIAN Jun Allen MD LAB - HEMATOLOGY ORD ERABLES [facility] [address] [place] [address], [place] [phone] * TRIGLYCERIDES BLOOD (05/05/2024 12:43 AM INSTRUMENT REPAIR TECHNICIAN) Triglycerides 102 <150 mg/dL 05/05/2024 1:20 AM [facility] Comment: ATP III Classification of Triglycerides: <150 mg/dL: Normal 150 - 199 mg/dL: Borderline High 200 - 400 mg/dL: High >500 mg/dL: Very High Blood BLOOD SPECIMEN / Unknown Venipuncture / Unknown 05/05/2024 12:43 AM INSTRUMENT REPAIR TECHNICIAN 05/05/2024 12:52 AM INSTRUMENT REPAIR TECHNICIAN Jun Allen MD LAB - CHEMISTRY ORDE AMBROSIO [facility] [address] [place] [address], [place] [phone] * US Abdomen Ltd W Comp Doppler (05/04/2024 4:11 PM INSTRUMENT REPAIR TECHNICIAN) Anatomical Region Laterality Modality Abdomen Ultrasound 05/04/2024 3:57 PM INSTRUMENT REPAIR TECHNICIAN Impressions 05/04/2024 5:16 PM INSTRUMENT REPAIR TECHNICIAN IMPRESSION: 1.Hepatic cirrhosis without discrete hepatic lesion. [...] evaluation. > Dictated by Calvin Schroeder MD (vice president of advertising). I, Darryl Ayala MD have personally reviewed and interpreted this examination/study. > Interpreting Provider: Darryl Ayala MD on 05/04/2024 5:16 PM Narrative 05/04/2024 5:16 PM INSTRUMENT REPAIR TECHNICIAN PROCEDURE: US ABDOMEN LTD W COMP DOPPLER, DATE/TIME OF EXAM: 05/04/2024 2:45 PM, LOCATION [facility] INDICATION: K72.90: Decompensated cirrhosis (HCC) K74.60: Decompensated [...] DATE/TIME OF EXAM:05/04/2024 2:45 PM, LOCATION [facility] INDICATION: K72.90: Decompensated cirrhosis (HCC) K74.60: Decompensated [...] evaluation. > Dictated by Calvin Schroeder MD (vice president of advertising). I, Darryl Ayala MD have personally reviewed and interpreted this examination/study. > Interpreting Provider: Darryl Ayala MD on 05/04/2024 5:16 PM Osmani Myers MD US ORDERABLES * (ABNORMAL) IRON + TRANSFERRIN PANEL (05/03/2024 6:45 PM INSTRUMENT REPAIR TECHNICIAN) Iron 292 ug/dL 05/03/2024 11:55 PM [facility] Transferrin 97(L) 174 - 382 mg/dL 05/03/2024 11:55 PM [facility] Transferrin Saturation % 100(H) 16 - 50 % 05/03/2024 11:55 PM [facility] TIBC Calculated 121 ug/dL 11:55 PM [facility] Blood BLOOD SPECIMEN / Unknown Venipuncture / Unknown 05/03/2024 6:45 PM INSTRUMENT REPAIR TECHNICIAN 05/03/2024 6:47 PM INSTRUMENT REPAIR TECHNICIAN Osmani Myers MD LAB - CHEMISTRY ORDE AMBROSIO [facility] [address] [place] [address], [facility] [phone] * (ABNORMAL) URINE MICROSCOPIC ONLY REFLEX TO CULTURE (05/03/2024 2:49 PM INSTRUMENT REPAIR TECHNICIAN) Reflex Status Culture to follow 05/03/2024 3:26 PM [facility] RBC UA 51-100(A) None Seen, 0-2, 3-5 /HPF 05/03/2024 3:26 PM [facility] WBC UA 21-50(A) None Seen, 0-5 /HPF 05/03/2024 3:26 PM [facility] Squamous Epithelial Cells UA 0-2 None Seen, 0-2, 3-5 /HPF 05/03/2024 3:26 PM [facility] Mucus UA 2+ /LPF 05/03/2024 3:26 PM [facility] Hyaline Casts UA 11-20(A) None Seen, 0-2 /LPF 05/03/2024 3:26 PM [facility] Urine URINE SPECIMEN OBTAINED BY CLEAN CATCH PROCEDURE / Unknown Collection / Unknown 05/03/2024 2:49 PM INSTRUMENT REPAIR TECHNICIAN 05/03/2024 2:54 PM INSTRUMENT REPAIR TECHNICIAN Narrative [facility] - 05/03/2024 3:26 PM INSTRUMENT REPAIR TECHNICIAN Jun Allen MD LAB - URINALYSIS ORD ERABLES [facility] [address] [place] [address], [facility] [phone] * (ABNORMAL) URINALYSIS REFLEX MICROSCOPIC REFLEX CULTURE (05/03/2024 2:49 PM INSTRUMENT REPAIR TECHNICIAN) Color UA Yellow Straw, Yellow 05/03/2024 3:23 PM [facility] Clarity UA Slt Cloudy(A) Clear 05/03/2024 3:23 PM [facility] Specific [place] UA 1.011 1.005 - 1.030 05/03/2024 3:23 PM [facility] pH UA 5.0 5.0 - 8.0 pH 05/03/2024 3:23 PM [facility] Protein UA Negative Negative 05/03/2024 3:23 PM [facility] Glucose UA Negative Negative 05/03/2024 3:23 PM [facility] Ketone UA Negative Negative 05/03/2024 3:23 PM [facility] Bilirubin UA Negative Negative 05/03/2024 3:23 PM [facility] Blood UA 1+(A) Negative 05/03/2024 3:23 PM [facility] Nitrite UA Negative Negative 05/03/2024 3:23 PM [facility] Leukocyte Esterase Negative Negative 05/03/2024 3:23 PM [facility] Urobilinogen UA Negative Negative mg/dL 05/03/2024 3:23 PM [facility] Urine URINE SPECIMEN OBTAINED BY CLEAN CATCH PROCEDURE / Unknown Collection / Unknown 05/03/2024 2:49 PM INSTRUMENT REPAIR TECHNICIAN 05/03/2024 2:54 PM INSTRUMENT REPAIR TECHNICIAN [facility] - 05/03/2024 3:23 PM INSTRUMENT REPAIR TECHNICIAN Jun Allen MD LAB - URINALYSIS ORD ERABLES [facility] [address] [place] [address], [facility] [phone] * STREP PNEUMONIAE ANTIGEN URINE (05/03/2024 2:49 PM INSTRUMENT REPAIR TECHNICIAN) Streptococcus pneumoniae Antigen Urine Negative Negative 05/04/2024 8:42 AM INSTRUMENT REPAIR TECHNICIAN [facility] Urine URINE / Unknown Collection / Unknown 05/03/2024 2:49 PM INSTRUMENT REPAIR TECHNICIAN 05/03/2024 2:54 PM INSTRUMENT REPAIR TECHNICIAN Narrative [facility] - 05/04/2024 8:42 AM INSTRUMENT REPAIR TECHNICIAN Patients who have received the Streptococcus pneumoniae [...] - MICROBIOL OGY ORDERABLES Performing Organization Address [facility] Co de Phone Number [facility] [address] [place] [address], [facility] [phone] * LEGIONELLA ANTIGEN URINE (05/03/2024 2:49 PM INSTRUMENT REPAIR TECHNICIAN) Legionella Antigen Urine Negative Negative 05/04/2024 8:13 AM [facility] Urine URINE / Unknown Collection / Unknown 05/03/2024 2:49 PM INSTRUMENT REPAIR TECHNICIAN 05/03/2024 2:54 PM INSTRUMENT REPAIR TECHNICIAN Narrative [facility] - 05/04/2024 8:13 AM INSTRUMENT REPAIR TECHNICIAN This assay detects Legionella pneumophila serogroup one (1) antigen. A negative test result does not rule out the possibility of Legionella infection due to other serogroups or species of Legionella. A positive result may indicate a recent or remote infection with serogroup 1. Eder Bravo MD LAB - MICROBIOL OGY ORDERABLES Performing Organization Address [facility] Co de Phone Number [facility] [address] [place] [address], [facility] [phone] * CULTURE URINE (05/03/2024 2:49 PM INSTRUMENT REPAIR TECHNICIAN) Culture Urine No growth (<100 CFU/mL) SAURABH 05/05/2024 12:31 AM INSTRUMENT REPAIR TECHNICIAN [facility] Urine URINE SPECIMEN OBTAINED BY CLEAN CATCH PROCEDURE / Unknown Collection / Unknown 05/03/2024 2:49 PM INSTRUMENT REPAIR TECHNICIAN 05/03/2024 3:26 PM INSTRUMENT REPAIR TECHNICIAN Jun Allen MD LAB - MICROBIOLOGY O RDERABLES [facility] [address] [place] [address], [place] [phone] * ECHO COMPLETE W CONTRAST W BUBBLE STUDY (05/03/2024 2:00 PM INSTRUMENT REPAIR TECHNICIAN) RVOT diam Doppler 2.642 cm SSM CV [...] Region Laterality Modality Ultrasound 05/03/2024 1:20 PM INSTRUMENT REPAIR TECHNICIAN Narrative 05/03/2024 9:47 PM INSTRUMENT REPAIR TECHNICIAN Summary * Findings consistent with elevated venous [...] 1:20 PM Patient Status: I/P Study Site: [facility] Primary Location: [facility] EStudy Info Technical Quality: Fair Exam Type: [...] Provider: Jun Allen Attending Physician: Jun Allen Will Call Order Clerk: Willard Wallis Left Ventricle The left ventricle [...] 1:20 PM Patient Status: I/P Study Site: [facility] Primary Location: [facility] EStudy Info Technical Quality: Fair Exam Type: [...] Provider: Jun Allen Attending Physician: Jun Allen Will Call Order Clerk: Willardbrody Wallis Left Ventricle The left ventricle [...] CUPID * CULTURE BLOOD (05/03/2024 12:24 PM INSTRUMENT REPAIR TECHNICIAN) Only the most recent of2 resultswithin the time period is included. Culture No growth day 5 SAURABH 05/08/2024 4:31 PM INSTRUMENT REPAIR TECHNICIAN [facility] Blood PERIPHERAL BLOOD / Unknown Venipuncture / Unknown 05/03/2024 12:24 PM INSTRUMENT REPAIR TECHNICIAN 05/03/2024 1:00 PM INSTRUMENT REPAIR TECHNICIAN Jun Allen MD LAB - MICROBIOLOGY O CORDELLERAFRANCES [facility] [address] [place] [address], [facility] [phone] * LACTIC ACID BLOOD (05/03/2024 12:24 PM INSTRUMENT REPAIR TECHNICIAN) Only the most recent of4 resultswithin the time period is included. Pathologist [facility] [place] Lactic Acid-Stat 1.6 <=2.0 mmol/L 05/03/2024 1:03 PM INSTRUMENT REPAIR TECHNICIAN [facility] Blood BLOOD SPECIMEN / Unknown Venipuncture / Unknown 05/03/2024 12:24 PM INSTRUMENT REPAIR TECHNICIAN 05/03/2024 12:32 PM INSTRUMENT REPAIR TECHNICIAN Jun Allen MD LAB - CHEMISTRY NADIA VALENTE Performing Organization Address City/[facility]/ZIP Co de Phone Number [facility] [address] [place] [address], [place] [phone] * HIV-1 HIV-2 ANTIBODY + HIV P24 AG PANEL (05/03/2024 12:58 AM INSTRUMENT REPAIR TECHNICIAN) [facility] HIV Antigen/Antibod y 1 & 2 Non-reacti ve Non-react grady 05/03/2024 2:15 AM [facility] Comment:No Laboratory eviden ce of HIV infection. Blood BLOOD SPECIMEN / Unknown Venipuncture / Unknown 05/03/2024 12:58 AM INSTRUMENT REPAIR TECHNICIAN 05/03/2024 1:26 AM INSTRUMENT REPAIR TECHNICIAN Jun Allen MD LAB - CHEMISTRY NADIA [facility]ENTE Performing Organization Address City/[facility]/ZIP Co de Phone Number [facility] [address] [place] [address], [place] [phone] * HEMOGLOBIN A1C (05/03/2024 12:58 AM INSTRUMENT REPAIR TECHNICIAN) Pathologist [facility] [place] Hemoglobin A1c 5.0 <=5.6 % 05/03/2024 8:56 AM [facility] Estimated Average Glucose 97 mg/dL 05/03/2024 8:56 AM [facility] Comment: HbA1c Interpretation: Normal : < 5.7% Pre-diabetes: 5.7-6.4% Diabetes: Equal to or greater than 6.5% Test results diagnostic of diabetes should be repeated for confirmation. Treatment target values recommended by ADA and other clinical organizations should be used to evaluate metabolic control in patients. Reference: [place] [employer], Standards of Care in Diabetes -2020 In patients 70 years and older consider HbA1c target range of 7.0-7.5% (Reference: Jaime Adair et al. JAMDA. 2012) The Sebia assay for the measurement of HbA1c is a National Glycohemoglobin Standardization Program (NGSP) certified method. Blood BLOOD SPECIMEN / Unknown Venipuncture / Unknown 05/03/2024 12:58 AM INSTRUMENT REPAIR TECHNICIAN 05/03/2024 1:57 AM INSTRUMENT REPAIR TECHNICIAN Jun Allen MD LAB - CHEMISTRY NADIA [facility]ENTE [facility] Organization Address City/State/ZIP Co de Phone Number [facility] [address] [address], [facility] [phone] * RESPIRATORY PANEL WITH SARS-COV-2 BY PCR ([facility]) (05/02/2024 10:30 PM INSTRUMENT REPAIR TECHNICIAN) Adenovirus PCR Not detected Not detected 05/03/2024 7:10 AM INSTRUMENT REPAIR TECHNICIAN [facility] Coronavirus 229E PCR Not detected Not detected 05/03/2024 7:10 AM [facility] Coronavirus HKU1 PCR Not detected Not detected 05/03/2024 7:10 AM [facility] Coronavirus NL63 PCR Not detected Not detected 05/03/2024 7:10 AM INSTRUMENT REPAIR TECHNICIAN [facility] Coronavirus OC43 PCR Not detected Not detected 05/03/2024 7:10 AM [facility] COVID-19 PCR Not detected Not detected 05/03/2024 7:10 AM INSTRUMENT REPAIR TECHNICIAN [facility] Human Metapneumovirus PCR Not detected Not detected 05/03/2024 7:10 AM INSTRUMENT REPAIR TECHNICIAN [facility] Human Rhinovirus/Enterov irus PCR Not detected Not detected 05/03/2024 7:10 AM [facility] Influenza A PCR Not detected Not detected 05/03/2024 7:10 AM INSTRUMENT REPAIR TECHNICIAN [facility] Influenza B PCR Not detected Not detected 05/03/2024 7:10 AM INSTRUMENT REPAIR TECHNICIAN [facility] Parainfluenza Virus 1 PCR Not detected Not detected 05/03/2024 7:10 AM INSTRUMENT REPAIR TECHNICIAN [facility] Parainfluenza Virus 2 PCR Not detected Not detected 05/03/2024 7:10 AM INSTRUMENT REPAIR TECHNICIAN [facility] Parainfluenza Virus 3 PCR Not detected Not detected 05/03/2024 7:10 AM INSTRUMENT REPAIR TECHNICIAN [facility] Parainfluenza Virus 4 PCR Not detected Not detected 05/03/2024 7:10 AM INSTRUMENT REPAIR TECHNICIAN [facility] Respiratory Syncytial Virus PCR Not detected Not detected 05/03/2024 7:10 AM INSTRUMENT REPAIR TECHNICIAN [facility] Bordetella parapertussis PCR Not detected Not detected 05/03/2024 7:10 AM INSTRUMENT REPAIR TECHNICIAN [facility] Bordetella pertussis PCR Not detected Not detected 05/03/2024 7:10 AM INSTRUMENT REPAIR TECHNICIAN [facility] Chlamydia pneumoniae PCR Not detected Not detected 05/03/2024 7:10 AM INSTRUMENT REPAIR TECHNICIAN [facility] Mycoplasma pneumoniae PCR Not detected Not detected 05/03/2024 7:10 AM INSTRUMENT REPAIR TECHNICIAN [facility] Microbiology SPECIMEN FROM NASOPHARYNGEAL STRUCTURE / Unknown Collection / Unknown 05/02/2024 10:30 PM INSTRUMENT REPAIR TECHNICIAN 05/03/2024 1:26 AM INSTRUMENT REPAIR TECHNICIAN Narrative [facility] - 05/03/2024 7:10 AM INSTRUMENT REPAIR TECHNICIAN This nucleic amplification assay has received FDA authorization via the [employer]. Jnu Allen MD LAB - MICROBIOLOGY O VANIA [facility] [address] [place] [address], [facility] [phone] * CULTURE MRSA (05/02/2024 10:30 PM INSTRUMENT REPAIR TECHNICIAN) Culture Negative for methicillin-resist ant Staphylococcus aureus (MRSA) SAURABH 05/04/2024 7:54 AM INSTRUMENT REPAIR TECHNICIAN [facility] Microbiology SPECIMEN FROM NASAL FOSSAE / Unknown Collection / Unknown 05/02/2024 10:30 PM INSTRUMENT REPAIR TECHNICIAN 05/03/2024 1:27 AM INSTRUMENT REPAIR TECHNICIAN Jun Allen MD LAB - MICROBIOLOGY O VANIA [facility] [address] [place] [address], [facility] [phone] * VANCOMYCIN LEVEL RANDOM (05/02/2024 10:21 PM INSTRUMENT REPAIR TECHNICIAN) Vancomycin Random 17.5 Therapeutic Ranges not established for random specimens ug/mL 05/02/2024 11:05 PM INSTRUMENT REPAIR TECHNICIAN [facility] Blood BLOOD SPECIMEN / Unknown Venipuncture / Unknown 05/02/2024 10:21 PM INSTRUMENT REPAIR TECHNICIAN 05/02/2024 10:32 PM INSTRUMENT REPAIR TECHNICIAN Narrative [facility] - 05/02/2024 11:05 PM INSTRUMENT REPAIR TECHNICIAN See institution protocol. Jun Allen MD LAB - CHEMISTRY NADIA VALENTE [facility] [address] [place] [address], [facility] [phone] * PHOSPHATIDYLETHANOL (PETH) (05/02/2024 9:14 PM INSTRUMENT REPAIR TECHNICIAN) PEth 16:0/18.1 (POPEth) 59 ng/mL 05/05/2024 3:22 PM INSTRUMENT REPAIR TECHNICIAN [facility] ([facility]) Comment: PEth 16:0/18:1 (POPEth) Less than 10 ng/mL............Not detected Less than 20 ng/mL............Abstinence or light alcohol consumption 20 - 200 ng/mL................Moderate alcohol consumption Greater than 200 ng/mL........Heavy alcohol consumption or chronic alcohol use (Reference: Rufino Rae and Jory Chavis 2018 J. Forensic Sci) PEth 16:0/18.2 (PLPEth) 13 ng/mL 05/05/2024 3:22 PM INSTRUMENT REPAIR TECHNICIAN [facility] ([facility]) Comment:Reference ranges are not well established. EER Peth See Note 05/05/2024 3:22 PM INSTRUMENT REPAIR TECHNICIAN [facility] ([facility]) Comment: Authorized individuals can access the [employer] Enhanced Report with an [employer] Connect account using the following link. Your local lab can assist you in obtaining the patient report if you don't have a Connect account. [email or web address] Interpretation PEth See Comment 05/05/2024 3:22 PM INSTRUMENT REPAIR TECHNICIAN [employer] ([facility]) Comment: Phosphatidylethanol (PEth) is a group of [...] developed and its performance characteristics determined by [employer]. It has not been cleared or approved by the U.S. Food and Drug Administration. This test was performed in a CLIA-certified laboratory and is intended for clinical purposes. Performed By: [employer] [address] [place] [address] [employer]inery Blocker: Giorgio Poole MD, PhD CLIA Number: [id number] Blood BLOOD SPECIMEN / Unknown Venipuncture / Unknown 05/02/2024 9:14 PM INSTRUMENT REPAIR TECHNICIAN 05/02/2024 10:05 PM INSTRUMENT REPAIR TECHNICIAN Jun Allen MD LAB - CHEMISTRY NADIA VALENTE [facility] ([facility]) [address] [place] [address], [facility] * SMOOTH MUSCLE ANTIBODY W REFLEX TITER (05/02/2024 9:14 PM INSTRUMENT REPAIR TECHNICIAN) F-Actin Antibody IgG 19 0 - 19 Units 05/05/2024 5:30 AM INSTRUMENT REPAIR TECHNICIAN [facility] ([facility]) Comment: If F-Actin (Smooth Muscle) Antibody, IgG [...] suspicion for AIH is strong. Performed By: [facility] [address] [place] [address] [employer] Bl[employer]: Giorgio Poole MD, PhD CLIA Number: [id number] Blood BLOOD SPECIMEN / Unknown Venipuncture / Unknown 05/02/2024 9:14 PM INSTRUMENT REPAIR TECHNICIAN 05/02/2024 10:05 PM INSTRUMENT REPAIR TECHNICIAN Jun Allen MD LAB - SEROLOGY ORDER GERALDO Borro [facility]) [address] [place] [address], [facility] * (ABNORMAL) MITOCHONDRIAL ANTIBODY SCREEN (05/02/2024 9:14 PM INSTRUMENT REPAIR TECHNICIAN) Mitochondrial M2 Antibody 47.6(H) 0.0 - 24.9 Units 05/05/2024 5:31 AM INSTRUMENT REPAIR TECHNICIAN [facility] ([facility]) Comment: REFERENCE INTERVAL: Mitochondrial (M2) Antibody, IgG [...] does not rule out PBC. Performed By: [place] [address] Millinery Blocker: Giorgio Poole MD, PhD CLIA Number: [id number] Blood BLOOD SPECIMEN / Unknown Venipuncture / Unknown 05/02/2024 9:14 PM INSTRUMENT REPAIR TECHNICIAN 05/02/2024 10:05 PM INSTRUMENT REPAIR TECHNICIAN Jun Allen MD LAB - CHEMISTRY [facility] ([facility]) [address] [place] [address] * CERULOPLASMIN (05/02/2024 9:14 PM INSTRUMENT REPAIR TECHNICIAN) Pathologist [facility] [place] Ceruloplasmin 22 20 - 60 mg/dL 05/02/2024 10:43 PM INSTRUMENT REPAIR TECHNICIAN [facility] Blood BLOOD SPECIMEN / Unknown Venipuncture / Unknown 05/02/2024 9:14 PM INSTRUMENT REPAIR TECHNICIAN 05/02/2024 10:05 PM INSTRUMENT REPAIR TECHNICIAN Jun Allen MD LAB - CHEMISTRY [facility] [address] [address], [facility] [phone] * (ABNORMAL) B-TYPE NATRIURETIC PEPTIDE (05/02/2024 9:14 PM INSTRUMENT REPAIR TECHNICIAN) BNP 193(H) <100 pg/mL 05/02/2024 10:58 PM INSTRUMENT REPAIR TECHNICIAN [facility] Comment: A decision threshold of 100 [...] Unknown Venipuncture / Unknown 05/02/2024 9:14 PM INSTRUMENT REPAIR TECHNICIAN 05/02/2024 10:17 PM INSTRUMENT REPAIR TECHNICIAN Jun Allen MD LAB - CHEMISTRY [facility] [address] [address], [facility] [phone] * TSH (05/02/2024 9:14 PM INSTRUMENT REPAIR TECHNICIAN) TSH 2.875 0.350 - 4.940 uIU/mL 05/03/2024 2:26 AM INSTRUMENT REPAIR TECHNICIAN [facility] Blood BLOOD SPECIMEN / Unknown Venipuncture / Unknown 05/02/2024 9:14 PM INSTRUMENT REPAIR TECHNICIAN 05/02/2024 10:17 PM INSTRUMENT REPAIR TECHNICIAN Jun Allen MD LAB - CHEMISTRY [facility] [address] [address], [facility] [phone]
--- OUTSIDE RECORDS SUMMARY | 2024-07-24 11:00 | XMS_ITS | Clinical Summary ---
Author Organization [facility] Address [address] [place] [address] Care Team Providers Care Safety Director Name Role Phone Unavailable Primary Care Provider Unavailabl e Source Comments [facility],non-owned Affiliates and Associated Physician Practices is amultiple site organization consisting of ambulatory clinics and hospital sitesin [place], [place], [place] and [place]. This disclosure is being madepursuant to the Care Everywhere program and may not contain all information available regarding this patient. Last updated 18.[facility] [employer] Allergies No known active allergies Medications * [...] for Cough 06/06/2024 Active saline nasal spray (Lolo; Baby Bent) 0.65 % nasal spray Edwards 1 (one) spray into each nostril every [...] Active nicotine (Nicoderm CQ) 14 MG/24HR patchIndications:Toba account information clerk use disorder Apply 1 (one) patch to [...] Department Care Team Description 05/02/2024 8:30 PM TRANSACTION MANAGER - 06/06/2024 3:30 PM TRANSACTION MANAGER Hospital Encounter [facility] [address] [place] [address] Jun Allen MD Ferguson, Keith T, MD Benjamin, MD Polly Jansen, MD Luzma Nolen Maya, MD Fernelius, Joshua, MD Majeed, MD Rasheed Hilton Aman, DO Rodarte, Gloria Wheeler, Internal Medicine Discharge Disposition: Fci or Supportive Care 05/02/2024 Travel from Last [...] care, and heating? Not very hard 05/03/2024 [facility] of Occupat ional Health - Occupational Stress [...] any time in the past 12 m [facility], were you homeless or living in a fpc (including now)? No 05/03/2024 Sex and Gender Information Value Date Recorded Sex Assigned at Not on file Gender Identity Female 05/03/2024 4:30 PM TRANSACTION MANAGER Sexual Orientation Don't know 05/02/2024 9: 14 PM TRANSACTION MANAGER Last Filed Vital Signs Vital Sign Reading Time Taken Comments Blood Pressure 126/64 06/05/2024 11:09 PM TRANSACTION MANAGER Pulse 67 06/05/2024 11:09 PM TRANSACTION MANAGER Temperature 36.7 C (98.1 F) 06/05/2024 2:11 PM TRANSACTION MANAGER Respiratory Rate 16 06/04/2024 3:29 PM TRANSACTION MANAGER Oxygen Saturation 92% 06/05/2024 11:09 PM TRANSACTION MANAGER Inhaled Oxygen Concentration 40% 05/19/2024 1 2:53 PM TRANSACTION MANAGER Weight 64.9 kg (143 lb) 06/03/2024 4:00 AM TRANSACTION MANAGER Height 162.6 cm (5' 4 ) 05/02/2024 8:45 PM TRANSACTION MANAGER Body Mass Index 24.55 05/02/2024 8:45 PM TRANSACTION MANAGER Plan of Treatment Upcoming Encounters Date Type Department Care Team (Late st Contact Info) Description 12/13/2024 1:30 PM CDT Office Visit [facility] [address] [place] [address] Gloria Rodarte DO [address] [place] [address] Gerald Hui MD [address] [place] [address] Health Maintenance Due Date Last Done Comments [...] Comments PT-INR [facility] Routine 06/05/2024 8:08 AM TRANSACTION MANAGER PHOSPHORUS BLOOD Routine 06/05/2024 8:08 AM TRANSACTION MANAGER MAGNESIUM BLOOD Routine 06/05/2024 8:08 AM TRANSACTION MANAGER COMPREHENSIVE METABOLIC PANEL Routine 06/05/2024 8:08 AM TRANSACTION MANAGER PT-INR [facility] Routine 06/03/2024 7:23 PM TRANSACTION MANAGER PHOSPHORUS BLOOD Routine 06/03/2024 7:23 PM TRANSACTION MANAGER MAGNESIUM BLOOD Routine 06/03/2024 7:23 PM TRANSACTION MANAGER COMPREHENSIVE METABOLIC PANEL Routine 06/03/2024 7:23 PM TRANSACTION MANAGER PT-INR [facility] Routine 06/02/2024 7:48 PM TRANSACTION MANAGER PHOSPHORUS BLOOD Routine 06/02/2024 7:48 PM TRANSACTION MANAGER MAGNESIUM BLOOD Routine 06/02/2024 7:48 PM TRANSACTION MANAGER COMPREHENSIVE METABOLIC PANEL Routine 06/02/2024 7:48 PM TRANSACTION MANAGER PT-INR [facility] Routine 06/01/2024 7:34 PM TRANSACTION MANAGER PHOSPHORUS BLOOD Routine 06/01/2024 7:34 PM TRANSACTION MANAGER MAGNESIUM BLOOD Routine 06/01/2024 7:34 PM TRANSACTION MANAGER COMPREHENSIVE METABOLIC PANEL Routine 06/01/2024 7:34 PM TRANSACTION MANAGER PT-INR [facility] Routine 05/31/2024 7:04 PM TRANSACTION MANAGER PHOSPHORUS BLOOD Routine 05/31/2024 7:04 PM TRANSACTION MANAGER MAGNESIUM BLOOD Routine 05/31/2024 7:04 PM TRANSACTION MANAGER COMPREHENSIVE METABOLIC PANEL Routine 05/31/2024 7:04 PM TRANSACTION MANAGER CBC W AUTO DIFFERENTIAL Routine 05/31/19 7:04 PM TRANSACTION MANAGER PT-INR [facility] Routine 05/30/2024 6:06 AM TRANSACTION MANAGER PHOSPHORUS BLOOD AM Draw 05/30/2024 6:06 AM TRANSACTION MANAGER MAGNESIUM BLOOD AM Draw 05/30/2024 6:06 AM TRANSACTION MANAGER COMPREHENSIVE METABOLIC PANEL AM Draw 05/30/2024 6:06 AM TRANSACTION MANAGER CBC W AUTO DIFFERENTIAL AM Draw 05/30/19 6:06 AM TRANSACTION MANAGER PT-INR [facility] Routine 05/29/2024 7:15 AM TRANSACTION MANAGER PHOSPHORUS BLOOD AM Draw 05/29/2024 7:15 AM TRANSACTION MANAGER MAGNESIUM BLOOD AM Draw 05/29/2024 7:15 AM TRANSACTION MANAGER COMPREHENSIVE METABOLIC PANEL AM Draw 05/29/2024 7:15 AM TRANSACTION MANAGER CBC W AUTO DIFFERENTIAL AM Draw 05/29/19 7:15 AM TRANSACTION MANAGER MAGNESIUM BLOOD AM Draw 05/28/2024 12:46 PM TRANSACTION MANAGER COMPREHENSIVE METABOLIC PANEL AM Draw 05/28/2024 12:46 PM TRANSACTION MANAGER PT-INR [facility] Routine 05/28/2024 6:02 AM TRANSACTION MANAGER PHOSPHORUS BLOOD AM Draw 05/28/2024 6:02 AM TRANSACTION MANAGER CBC W AUTO DIFFERENTIAL AM Draw 05/28/19 6:02 AM TRANSACTION MANAGER PT-INR [facility] Routine 05/27/2024 7:03 AM TRANSACTION MANAGER PHOSPHORUS BLOOD AM Draw 05/27/2024 7:03 AM TRANSACTION MANAGER MAGNESIUM BLOOD AM Draw 05/27/2024 7:03 AM TRANSACTION MANAGER COMPREHENSIVE METABOLIC PANEL AM Draw 05/27/2024 7:03 AM TRANSACTION MANAGER CBC W AUTO DIFFERENTIAL AM Draw 05/27/19 7:03 AM TRANSACTION MANAGER PT-INR [facility] Routine 05/26/2024 7:04 AM TRANSACTION MANAGER PHOSPHORUS BLOOD AM Draw 05/26/2024 7:04 AM TRANSACTION MANAGER MAGNESIUM BLOOD AM Draw 05/26/2024 7:04 AM TRANSACTION MANAGER COMPREHENSIVE METABOLIC PANEL AM Draw 05/26/2024 7:04 AM TRANSACTION MANAGER CBC W AUTO DIFFERENTIAL AM Draw 05/26/19 7:04 AM TRANSACTION MANAGER PT-INR [facility] Routine 05/25/2024 7:00 AM TRANSACTION MANAGER PHOSPHORUS BLOOD AM Draw 05/25/2024 7:00 AM TRANSACTION MANAGER MAGNESIUM BLOOD AM Draw 05/25/2024 7:00 AM TRANSACTION MANAGER COMPREHENSIVE METABOLIC PANEL AM Draw 05/25/2024 7:00 AM TRANSACTION MANAGER CBC W AUTO DIFFERENTIAL AM Draw 05/25/19 7:00 AM TRANSACTION MANAGER PT EVAL AND TREAT Routine 05/24/2024 2:0 4 PM TRANSACTION MANAGER OT EVAL AND TREAT Routine 05/24/2024 2:0 4 PM TRANSACTION MANAGER PT-INR [facility] Routine 05/24/2024 8:39 AM TRANSACTION MANAGER PHOSPHORUS BLOOD AM Draw 05/24/2024 8:39 AM TRANSACTION MANAGER MAGNESIUM BLOOD AM Draw 05/24/2024 8:39 AM TRANSACTION MANAGER COMPREHENSIVE METABOLIC PANEL AM Draw 05/24/2024 8:39 AM TRANSACTION MANAGER CBC W AUTO DIFFERENTIAL AM Draw 05/24/19 8:39 AM TRANSACTION MANAGER GLUCOSE - POINT OF CARE Routine 05/23/19 10:19 PM TRANSACTION MANAGER PROCALCITONIN LEVEL Routine 05/23/2024 3 :06 PM TRANSACTION MANAGER SYPHILIS ANTIBODY CASCADING REFLEX Routine 05/23/2024 3:06 PM TRANSACTION MANAGER URINALYSIS REFLEX TO MICROSCOPIC NO CULTURE Routine 05/23/2024 11:05 AM TRANSACTION MANAGER VITAMIN B12 Routine 05/23/2024 6:20 AM TRANSACTION MANAGER PT-INR [facility] Routine 05/23/2024 6:20 AM TRANSACTION MANAGER PHOSPHORUS BLOOD AM Draw 05/23/2024 6:20 AM TRANSACTION MANAGER MAGNESIUM BLOOD AM Draw 05/23/2024 6:20 AM TRANSACTION MANAGER COMPREHENSIVE METABOLIC PANEL AM Draw 05/23/2024 6:20 AM TRANSACTION MANAGER CBC W AUTO DIFFERENTIAL AM Draw 05/23/19 6:20 AM TRANSACTION MANAGER PT EVAL AND TREAT Routine 05/22/2024 10: 47 AM TRANSACTION MANAGER OT EVAL AND TREAT Routine 05/22/2024 10: 47 AM TRANSACTION MANAGER GLUCOSE - POINT OF CARE Routine 05/22/19 6:14 AM TRANSACTION MANAGER PT-INR [facility] Routine 05/22/2024 5:24 AM TRANSACTION MANAGER PHOSPHORUS BLOOD AM Draw 05/22/2024 5:24 AM TRANSACTION MANAGER MAGNESIUM BLOOD AM Draw 05/22/2024 5:24 AM TRANSACTION MANAGER COMPREHENSIVE METABOLIC PANEL AM Draw 05/22/2024 5:24 AM TRANSACTION MANAGER CBC W AUTO DIFFERENTIAL AM Draw 05/22/19 5:24 AM TRANSACTION MANAGER GLUCOSE - POINT OF CARE Routine 05/22/19 12:18 AM TRANSACTION MANAGER GLUCOSE - POINT OF CARE Routine 05/21/19 5:03 PM TRANSACTION MANAGER GLUCOSE - POINT OF CARE Routine 05/21/19 12:09 PM TRANSACTION MANAGER PT-INR [facility] Routine 05/21/2024 6:22 AM TRANSACTION MANAGER PHOSPHORUS BLOOD AM Draw 05/21/2024 6:22 AM TRANSACTION MANAGER MAGNESIUM BLOOD AM Draw 05/21/2024 6:22 AM TRANSACTION MANAGER COMPREHENSIVE METABOLIC PANEL AM Draw 05/21/2024 6:22 AM TRANSACTION MANAGER CBC W AUTO DIFFERENTIAL AM Draw 05/21/19 6:22 AM TRANSACTION MANAGER GLUCOSE - POINT OF CARE Routine 05/21/19 12:28 AM TRANSACTION MANAGER GLUCOSE - POINT OF CARE Routine 05/20/19 12:20 PM TRANSACTION MANAGER PT-INR [facility] Routine 05/20/2024 7:30 AM TRANSACTION MANAGER CBC W AUTO DIFFERENTIAL AM Draw 05/20/19 7:30 AM TRANSACTION MANAGER PHOSPHORUS BLOOD AM Draw 05/20/2024 7:29 AM TRANSACTION MANAGER MAGNESIUM BLOOD AM Draw 05/20/2024 7:29 AM TRANSACTION MANAGER COMPREHENSIVE METABOLIC PANEL AM Draw 05/20/2024 7:29 AM TRANSACTION MANAGER GLUCOSE - POINT OF CARE Routine 05/20/19 12:23 AM TRANSACTION MANAGER GLUCOSE - POINT OF CARE Routine 05/19/19 12:[address] HEAD WO CONTRAST Routine 05/19/2024 1 0:03 AM TRANSACTION MANAGER Encephalopathy, unspecified type PT-INR [facility] Routine 05/19/2024 7:13 AM TRANSACTION MANAGER PHOSPHORUS BLOOD AM Draw 05/19/2024 7:13 AM TRANSACTION MANAGER MAGNESIUM BLOOD AM Draw 05/19/2024 7:13 AM TRANSACTION MANAGER COMPREHENSIVE METABOLIC PANEL AM Draw 05/19/2024 7:13 AM TRANSACTION MANAGER CBC W AUTO DIFFERENTIAL AM Draw 05/19/19 7:13 AM TRANSACTION MANAGER GLUCOSE - POINT OF CARE Routine 05/19/19 5:54 AM TRANSACTION MANAGER GLUCOSE - POINT OF CARE Routine 05/19/19 2:03 AM TRANSACTION MANAGER GLUCOSE - POINT OF CARE Routine 05/18/19 10:51 PM TRANSACTION MANAGER GLUCOSE - POINT OF CARE Routine 05/18/19 5:57 PM TRANSACTION MANAGER CK BLOOD Routine 05/18/2024 12:26 PM TRANSACTION MANAGER HGB HCT PANEL Timed 05/18/2024 12:26 PM TRANSACTION MANAGER GLUCOSE - POINT OF CARE Routine 05/18/19 11:35 AM TRANSACTION MANAGER XR ABDOMEN KUB PORTABLE STAT 05/18/19 10:38 AM TRANSACTION MANAGER Alteration in nutrition associated with tube feeding GLUCOSE - POINT OF CARE Routine 05/18/19 6:11 AM TRANSACTION MANAGER XR CHEST 1VW PORTABLE Routine 05/18/2024 4:33 AM TRANSACTION MANAGER Acute respiratory failure with hypoxia (HCC) PT-INR [facility] Routine 05/18/2024 2:51 AM TRANSACTION MANAGER PHOSPHORUS BLOOD AM Draw 05/18/2024 2:51 AM TRANSACTION MANAGER MAGNESIUM BLOOD AM Draw 05/18/2024 2:51 AM TRANSACTION MANAGER COMPREHENSIVE METABOLIC PANEL AM Draw 05/18/2024 2:51 AM TRANSACTION MANAGER CBC W AUTO DIFFERENTIAL STAT 05/18/19 2:51 AM TRANSACTION MANAGER GLUCOSE - POINT OF CARE Routine 05/18/19 12:08 AM TRANSACTION MANAGER GLUCOSE - POINT OF CARE Routine 05/17/20 4:37 PM TRANSACTION MANAGER PROCALCITONIN LEVEL Routine 05/17/2024 1 2:04 PM TRANSACTION MANAGER GLUCOSE - POINT OF CARE Routine 05/17/20 11:24 AM TRANSACTION MANAGER PT-INR [facility] Routine 05/17/2024 8:29 AM TRANSACTION MANAGER PHOSPHORUS BLOOD AM Draw 05/17/2024 8:29 AM TRANSACTION MANAGER MAGNESIUM BLOOD AM Draw 05/17/2024 8:29 AM TRANSACTION MANAGER COMPREHENSIVE METABOLIC PANEL AM Draw 05/17/2024 8:29 AM TRANSACTION MANAGER CBC W AUTO DIFFERENTIAL AM Draw 05/17/20 8:29 AM TRANSACTION MANAGER GLUCOSE - POINT OF CARE Routine 05/17/20 6:48 AM TRANSACTION MANAGER EKG 12-LEAD STAT 05/16/2024 5:03 PM TRANSACTION MANAGER Acute respiratory failure with hypoxia (HCC) XR CHEST 1VW PORTABLE STAT 05/16/2024 4:52 PM TRANSACTION MANAGER Acute respiratory failure with hypoxia (HCC) AMMONIA STAT 05/16/2024 4:41 PM TRANSACTION MANAGER COMPREHENSIVE METABOLIC PANEL STAT 05/16/2024 4:23 PM TRANSACTION MANAGER BLOOD GASES ART + COOX PANEL STAT 05/16/2024 4:23 PM TRANSACTION MANAGER GLUCOSE - POINT OF CARE Routine 05/16/20 4:15 PM TRANSACTION MANAGER BASIC METABOLIC PANEL (CALCIUM TOTAL) Routine 05/16/2024 4:12 PM TRANSACTION MANAGER GLUCOSE - POINT OF CARE Routine 05/16/20 12:31 PM TRANSACTION MANAGER PTT [facility] Routine 05/16/2024 6:20 AM TRANSACTION MANAGER PT-INR [facility] Routine 05/16/2024 6:20 AM TRANSACTION MANAGER PHOSPHORUS BLOOD AM Draw 05/16/2024 6:20 AM TRANSACTION MANAGER MAGNESIUM BLOOD AM Draw 05/16/2024 6:20 AM TRANSACTION MANAGER COMPREHENSIVE METABOLIC PANEL AM Draw 05/16/2024 6:20 AM TRANSACTION MANAGER CBC W AUTO DIFFERENTIAL AM Draw 05/16/20 6:20 AM TRANSACTION MANAGER GLUCOSE - POINT OF CARE Routine 05/16/20 5:10 AM TRANSACTION MANAGER GLUCOSE - POINT OF CARE Routine 05/16/20 1:47 AM TRANSACTION MANAGER PTT [facility] Routine 05/15/2024 5:28 AM TRANSACTION MANAGER PT-INR [facility] Routine 05/15/2024 5:28 AM TRANSACTION MANAGER PHOSPHORUS BLOOD AM Draw 05/15/2024 5:28 AM TRANSACTION MANAGER MAGNESIUM BLOOD AM Draw 05/15/2024 5:28 AM TRANSACTION MANAGER COMPREHENSIVE METABOLIC PANEL AM Draw 05/15/2024 5:28 AM TRANSACTION MANAGER CBC W AUTO DIFFERENTIAL AM Draw 05/15/20 5:28 AM TRANSACTION MANAGER GLUCOSE - POINT OF CARE Routine 05/15/20 5:15 AM TRANSACTION MANAGER GLUCOSE - POINT OF CARE Routine 05/15/20 1:06 AM TRANSACTION MANAGER GLUCOSE - POINT OF CARE Routine 05/14/20 11:14 PM TRANSACTION MANAGER GLUCOSE - POINT OF CARE Routine 05/14/20 5:35 PM TRANSACTION MANAGER FERRITIN Routine 05/14/2024 4:05 PM TRANSACTION MANAGER MRSA DNA PCR STAT 05/14/2024 2:47 PM TRANSACTION MANAGER BLOOD GASES PAT + COOX PANEL Routine 05/14/2024 2:46 PM TRANSACTION MANAGER GLUCOSE - POINT OF CARE Routine 05/14/20 12:48 PM TRANSACTION MANAGER XR CHEST 1VW PORTABLE Routine 05/14/2024 10:35 AM TRANSACTION MANAGER Dyspnea, unspecified type GLUCOSE - POINT OF CARE Routine 05/14/20 7:07 AM TRANSACTION MANAGER BILIRUBIN DIRECT Routine 05/14/2024 6:23 AM TRANSACTION MANAGER PHOSPHORUS BLOOD AM Draw 05/14/2024 6:23 AM TRANSACTION MANAGER MAGNESIUM BLOOD AM Draw 05/14/2024 6:23 AM TRANSACTION MANAGER COMPREHENSIVE METABOLIC PANEL AM Draw 05/14/2024 6:23 AM TRANSACTION MANAGER CBC W AUTO DIFFERENTIAL AM Draw 05/14/20 6:23 AM TRANSACTION MANAGER GLUCOSE - POINT OF CARE Routine 05/13/20 6:24 PM TRANSACTION MANAGER GLUCOSE - POINT OF CARE Routine 05/13/20 12:13 PM TRANSACTION MANAGER MAGNESIUM BLOOD AM Draw 05/13/2024 7:54 AM TRANSACTION MANAGER COMPREHENSIVE METABOLIC PANEL AM Draw 05/13/2024 7:54 AM TRANSACTION MANAGER EKG 12-LEAD STAT 05/13/2024 6:43 AM TRANSACTION MANAGER Decompensated cirrhosis (HCC) GLUCOSE - POINT OF CARE Routine 05/13/20 6:24 AM TRANSACTION MANAGER PHOSPHORUS BLOOD AM Draw 05/13/2024 4:20 AM TRANSACTION MANAGER CBC W AUTO DIFFERENTIAL AM Draw 05/13/20 4:20 AM TRANSACTION MANAGER GLUCOSE - POINT OF CARE Routine 05/12/20 11:45 PM TRANSACTION MANAGER GLUCOSE - POINT OF CARE Routine 05/12/20 6:20 PM TRANSACTION MANAGER XR ABDOMEN KUB PORTABLE STAT 05/12/20 6:00 PM TRANSACTION MANAGER Decompensated cirrhosis (HCC) XR CHEST 1VW PORTABLE STAT 05/12/2024 4:46 PM TRANSACTION MANAGER Decompensated cirrhosis (HCC) XR ABDOMEN KUB PORTABLE STAT 05/12/20 4:46 PM TRANSACTION MANAGER Decompensated cirrhosis (HCC) GLUCOSE - POINT OF CARE Routine 05/12/20 12:12 PM TRANSACTION MANAGER GLUCOSE - POINT OF CARE Routine 05/12/20 6:06 AM TRANSACTION MANAGER PHOSPHORUS BLOOD AM Draw 05/12/2024 6:02 AM TRANSACTION MANAGER MAGNESIUM BLOOD AM Draw 05/12/2024 6:02 AM TRANSACTION MANAGER COMPREHENSIVE METABOLIC PANEL AM Draw 05/12/2024 6:02 AM TRANSACTION MANAGER CBC W AUTO DIFFERENTIAL AM Draw 05/12/20 6:02 AM TRANSACTION MANAGER BLOOD GASES ART + COOX PANEL Routine 05/12/2024 6:02 AM TRANSACTION MANAGER GLUCOSE - POINT OF CARE Routine 05/12/20 12:11 AM TRANSACTION MANAGER PT EVAL AND TREAT Routine 05/11/2024 7:4 9 PM TRANSACTION MANAGER OT EVAL AND TREAT Routine 05/11/2024 7:4 9 PM TRANSACTION MANAGER CULTURE SPUTUM+GRAM STAIN Routine 2023 1:48 PM TRANSACTION MANAGER PHOSPHORUS BLOOD AM Draw 05/11/2024 4:44 AM TRANSACTION MANAGER MAGNESIUM BLOOD AM Draw 05/11/2024 4:44 AM TRANSACTION MANAGER COMPREHENSIVE METABOLIC PANEL AM Draw 05/11/2024 4:44 AM TRANSACTION MANAGER CBC W AUTO DIFFERENTIAL AM Draw 05/11/20 4:44 AM TRANSACTION MANAGER GLUCOSE - POINT OF CARE Routine 05/11/20 4:43 AM TRANSACTION MANAGER GLUCOSE - POINT OF CARE Routine 05/11/20 1:13 AM TRANSACTION MANAGER XR CHEST 1VW PORTABLE STAT 05/10/2024 10:54 AM TRANSACTION MANAGER Pleural effusion CBC W AUTO DIFFERENTIAL AM Draw 05/10/20 5:14 AM TRANSACTION MANAGER GLUCOSE - POINT OF CARE Routine 05/10/20 5:13 AM TRANSACTION MANAGER PHOSPHORUS BLOOD AM Draw 05/10/2024 3:21 AM TRANSACTION MANAGER MAGNESIUM BLOOD AM Draw 05/10/2024 3:21 AM TRANSACTION MANAGER COMPREHENSIVE METABOLIC PANEL AM Draw 05/10/2024 3:21 AM TRANSACTION MANAGER GLUCOSE - POINT OF CARE Routine 05/09/20 11:34 PM TRANSACTION MANAGER GLUCOSE - POINT OF CARE Routine 05/09/20 5:23 PM TRANSACTION MANAGER PT EVAL AND TREAT Routine 05/09/2024 3:1 2 PM TRANSACTION MANAGER OT EVAL AND TREAT Routine 05/09/2024 3:1 2 PM TRANSACTION MANAGER GLUCOSE - POINT OF CARE Routine 05/09/20 1:20 PM TRANSACTION MANAGER PHOSPHORUS BLOOD AM Draw 05/09/2024 5:20 AM TRANSACTION MANAGER MAGNESIUM BLOOD AM Draw 05/09/2024 5:20 AM TRANSACTION MANAGER COMPREHENSIVE METABOLIC PANEL AM Draw 05/09/2024 5:20 AM TRANSACTION MANAGER CBC W AUTO DIFFERENTIAL AM Draw 05/09/20 5:20 AM TRANSACTION MANAGER GLUCOSE - POINT OF CARE Routine 05/09/20 5:19 AM TRANSACTION MANAGER GLUCOSE - POINT OF CARE Routine 05/09/20 12:00 AM TRANSACTION MANAGER GLUCOSE - POINT OF CARE Routine 05/08/20 6:17 PM TRANSACTION MANAGER GLUCOSE - POINT OF CARE Routine 05/08/20 12:24 PM TRANSACTION MANAGER GLUCOSE - POINT OF CARE Routine 05/08/20 6:47 AM TRANSACTION MANAGER PHOSPHORUS BLOOD AM Draw 05/08/2024 3:35 AM TRANSACTION MANAGER MAGNESIUM BLOOD AM Draw 05/08/2024 3:35 AM TRANSACTION MANAGER COMPREHENSIVE METABOLIC PANEL AM Draw 05/08/2024 3:35 AM TRANSACTION MANAGER CBC W AUTO DIFFERENTIAL AM Draw 05/08/20 3:35 AM TRANSACTION MANAGER GLUCOSE - POINT OF CARE Routine 05/08/20 12:08 AM TRANSACTION MANAGER GLUCOSE - POINT OF CARE Routine 05/07/20 5:43 PM TRANSACTION MANAGER GLUCOSE - POINT OF CARE Routine 05/07/20 12:18 PM TRANSACTION MANAGER GLUCOSE - POINT OF CARE Routine 05/07/20 6:11 AM TRANSACTION MANAGER PHOSPHORUS BLOOD AM Draw 05/07/2024 4:25 AM TRANSACTION MANAGER MAGNESIUM BLOOD AM Draw 05/07/2024 4:25 AM TRANSACTION MANAGER COMPREHENSIVE METABOLIC PANEL AM Draw 05/07/2024 4:25 AM TRANSACTION MANAGER CBC W AUTO DIFFERENTIAL AM Draw 05/07/20 4:25 AM TRANSACTION MANAGER GLUCOSE - POINT OF CARE Routine 05/07/20 12:18 AM TRANSACTION MANAGER GLUCOSE - POINT OF CARE Routine 05/06/20 5:27 PM TRANSACTION MANAGER GLUCOSE - POINT OF CARE Routine 05/06/20 11:43 AM TRANSACTION MANAGER GLUCOSE - POINT OF CARE Routine 05/06/20 5:43 AM TRANSACTION MANAGER GLUCOSE - POINT OF CARE Routine 05/06/20 12:01 AM TRANSACTION MANAGER DIFFERENTIAL MANUAL AM Draw 05/06/2024 1 2:01 AM TRANSACTION MANAGER PHOSPHORUS BLOOD AM Draw 05/06/2024 12:0 1 AM TRANSACTION MANAGER MAGNESIUM BLOOD AM Draw 05/06/2024 12:01 AM TRANSACTION MANAGER COMPREHENSIVE METABOLIC PANEL AM Draw 05/06/2024 12:01 AM TRANSACTION MANAGER CBC W AUTO DIFFERENTIAL AM Draw 05/06/20 12:01 AM TRANSACTION MANAGER GLUCOSE - POINT OF CARE Routine 05/05/20 5:54 PM TRANSACTION MANAGER GLUCOSE - POINT OF CARE Routine 05/05/20 11:47 AM TRANSACTION MANAGER GLUCOSE - POINT OF CARE Routine 05/05/20 5:48 AM TRANSACTION MANAGER DIFFERENTIAL MANUAL AM Draw 05/05/2024 1 2:43 AM TRANSACTION MANAGER TRIGLYCERIDES BLOOD AM Draw 05/05/2024 1 2:43 AM TRANSACTION MANAGER PHOSPHORUS BLOOD AM Draw 05/05/2024 12:4 3 AM TRANSACTION MANAGER MAGNESIUM BLOOD AM Draw 05/05/2024 12:43 AM TRANSACTION MANAGER COMPREHENSIVE METABOLIC PANEL AM Draw 05/05/2024 12:43 AM TRANSACTION MANAGER CBC W AUTO DIFFERENTIAL AM Draw 05/05/20 12:43 AM TRANSACTION MANAGER GLUCOSE - POINT OF CARE Routine 05/04/20 11:13 PM TRANSACTION MANAGER GLUCOSE - POINT OF CARE Routine 05/04/20 6:15 PM TRANSACTION MANAGER US ABDOMEN LTD W COMP DOPPLER Routine 05/04/2024 4:11 PM TRANSACTION MANAGER Decompensated cirrhosis (HCC) GLUCOSE - POINT OF CARE Routine 05/04/20 11:56 AM TRANSACTION MANAGER GLUCOSE - POINT OF CARE Routine 05/04/20 5:40 AM TRANSACTION MANAGER BLOOD GASES ART + COOX PANEL Timed 05/04/2024 1:10 AM TRANSACTION MANAGER GLUCOSE - POINT OF CARE Routine 05/04/20 12:25 AM TRANSACTION MANAGER DIFFERENTIAL MANUAL AM Draw 05/04/2024 1 2:25 AM TRANSACTION MANAGER PHOSPHORUS BLOOD AM Draw 05/04/2024 12:2 5 AM TRANSACTION MANAGER MAGNESIUM BLOOD AM Draw 05/04/2024 12:25 AM TRANSACTION MANAGER COMPREHENSIVE METABOLIC PANEL AM Draw 05/04/2024 12:25 AM TRANSACTION MANAGER CBC W AUTO DIFFERENTIAL AM Draw 05/04/20 12:25 AM TRANSACTION MANAGER IRON + TRANSFERRIN PANEL Routine 024 6:45 PM TRANSACTION MANAGER GLUCOSE - POINT OF CARE Routine 05/03/20 5:48 PM TRANSACTION MANAGER CULTURE SPUTUM+GRAM STAIN Routine 2023 4:15 PM TRANSACTION MANAGER URINE MICROSCOPIC ONLY REFLEX TO CULTURE Routine 05/03/2024 2:49 PM TRANSACTION MANAGER URINALYSIS REFLEX MICROSCOPIC REFLEX CULTURE Routine 05/03/2024 2:49 PM TRANSACTION MANAGER CULTURE URINE Routine 05/03/2024 2:49 PM TRANSACTION MANAGER STREP PNEUMONIAE ANTIGEN URINE Routine 05/03/2024 2:49 PM TRANSACTION MANAGER LEGIONELLA ANTIGEN URINE Routine 024 2:49 PM TRANSACTION MANAGER ECHO COMPLETE W CONTRAST W BUBBLE STUDY Routine 05/03/2024 2:00 PM TRANSACTION MANAGER Dyspnea, unspecified type GLUCOSE - POINT OF CARE Routine 05/03/20 24 1:05 PM TRANSACTION MANAGER LACTIC ACID BLOOD Routine 05/03/2024 12: 24 PM TRANSACTION MANAGER CULTURE BLOOD Timed 05/03/2024 12:24 PM TRANSACTION MANAGER CULTURE BLOOD Timed 05/03/2024 12:22 PM TRANSACTION MANAGER GLUCOSE - POINT OF CARE Routine 05/03/20 9:49 AM TRANSACTION MANAGER BLOOD GASES ART + COOX PANEL Routine 05/03/2024 5:31 AM TRANSACTION MANAGER GLUCOSE - POINT OF CARE Routine 05/03/20 24 5:26 AM TRANSACTION MANAGER LACTIC ACID BLOOD Routine 05/03/2024 3:2 6 AM TRANSACTION MANAGER GLUCOSE - POINT OF CARE Routine 05/03/20 24 1:06 AM TRANSACTION MANAGER BLOOD GASES ART + COOX PANEL Routine 05/03/2024 12:58 AM TRANSACTION MANAGER HEMOGLOBIN A1C Routine 05/03/2024 12:58 AM TRANSACTION MANAGER PHOSPHORUS BLOOD AM Draw 05/03/2024 12:5 8 AM TRANSACTION MANAGER MAGNESIUM BLOOD AM Draw 05/03/2024 12:58 AM TRANSACTION MANAGER COMPREHENSIVE METABOLIC PANEL AM Draw 05/03/2024 12:58 AM TRANSACTION MANAGER CBC W AUTO DIFFERENTIAL AM Draw 05/03/20 12:58 AM TRANSACTION MANAGER HIV-1 HIV-2 ANTIBODY + HIV P24 AG PANEL Routine 05/03/2024 12:58 AM TRANSACTION MANAGER VITAMIN B12 Routine 05/03/2024 12:58 AM TRANSACTION MANAGER RESPIRATORY PANEL WITH SARS-COV-2 BY PCR (STL) Routine 05/02/2024 10:30 PM TRANSACTION MANAGER CULTURE MRSA Routine 05/02/2024 10:30 PM TRANSACTION MANAGER VANCOMYCIN LEVEL RANDOM STAT 05/02/20 10:21 PM TRANSACTION MANAGER SYPHILIS ANTIBODY CASCADING REFLEX Timed 05/02/2024 10:21 PM TRANSACTION MANAGER XR CHEST 1VW PORTABLE STAT 05/02/2024 9:29 PM TRANSACTION MANAGER Decompensated cirrhosis (HCC) XR ABDOMEN KUB PORTABLE STAT 05/02/20 9:28 PM TRANSACTION MANAGER Decompensated cirrhosis (HCC) TSH Routine 05/02/2024 9:14 PM TRANSACTION MANAGER SMOOTH MUSCLE ANTIBODY W REFLEX TITER STAT 05/02/2024 9:14 PM TRANSACTION MANAGER MITOCHONDRIAL ANTIBODY SCREEN STAT 05/02/2024 9:14 PM TRANSACTION MANAGER CERULOPLASMIN STAT 05/02/2024 9:14 PM TRANSACTION MANAGER AMMONIA STAT 05/02/2024 9:14 PM TRANSACTION MANAGER LACTIC ACID BLOOD STAT 05/02/2024 9:1 4 PM TRANSACTION MANAGER B-TYPE NATRIURETIC PEPTIDE STAT 05/02 9:14 PM TRANSACTION MANAGER PHOSPHATIDYLETHANOL (PETH) Routine 05/02 9:14 PM TRANSACTION MANAGER PTT SLH STAT 05/02/2024 9:14 PM TRANSACTION MANAGER PT-INR H STAT 05/02/2024 9:14 PM TRANSACTION MANAGER BLOOD GASES ART + COOX PANEL STAT 05/02/2024 9:14 PM TRANSACTION MANAGER MAGNESIUM BLOOD STAT 05/02/2024 9:14 PM TRANSACTION MANAGER PHOSPHORUS BLOOD STAT 05/02/2024 9:14 PM TRANSACTION MANAGER CBC W AUTO DIFFERENTIAL STAT 05/02/20 24 9:14 PM TRANSACTION MANAGER COMPREHENSIVE METABOLIC PANEL STAT 05/02/2024 9:14 PM TRANSACTION MANAGER LACTIC ACID BLOOD STAT 05/02/2024 9:1 4 PM TRANSACTION MANAGER from Last 3 Months Results * (ABNORMAL) PT-INR [facility] (06/05/2024 8:08 AM TRANSACTION MANAGER) Only the most recent of22 resultswithin the time period is included. PT 16.9(H) 12.1 - 14.8 Seconds 06/05/2024 9:15 AM TRANSACTION MANAGER [facility] INR 1.4 See Comment 06/05/2024 9:15 AM TRANSACTION MANAGER [facility] Comment:The suggested therap eutic range for standard coumadin (warfarin) therapy is an INR of 2.0-3.0. For high-risk patients (Mechanical Mitral Valve Prosthesis, etc.), the suggested prophylactic therapeutic range is an INR of 2.5-3.5. Blood BLOOD SPECIMEN / Unknown Lab Venipuncture / Unknown 06/05/2024 8:08 AM TRANSACTION MANAGER 06/05/2024 8:45 AM [facility] Neal Grossman MD LAB - COAGULATION OR DERABLES [facility] [address] [place] [address], [facility] [phone] * (ABNORMAL) COMPREHENSIVE METABOLIC PANEL (06/05/2024 8:08 AM [facility]) Only the most recent of35 resultswithin the time period is included. BUN 8 7 - 26 mg/dL 06/05/2024 9:15 AM [facility] Creatinine 0.56 0.56 - 0.96 mg/dL 06/05/2024 9:15 AM [facility] Sodium 136 136 - 145 mmol/L 06/05/2024 9:15 AM [facility] Potassium 3.7 3.5 - 4.5 mmol/L 06/05/2024 9:15 AM [facility] Chloride 108(H) 98 - 107 mmol/L 06/05/2024 9:15 AM [facility] CO2 20(L) 22 - 29 mmol/L 06/05/2024 9:15 AM [facility] Glucose 132(H) 70 - 99 mg/dL 06/05/2024 9:15 AM [facility] Calcium 8.3(L) 8.4 - 10.2 mg/dL 06/05/2024 9:15 AM [facility] Protein Total 6.2 6.0 - 8.3 g/dL 06/05/2024 9:15 AM [facility] Albumin 2.5(L) 3.4 - 5.0 g/dL 06/05/2024 9:15 AM [facility] Bilirubin Total 2.3(H) 0.2 - 1.2 mg/dL 06/05/2024 9:15 AM [facility] Alkaline Phosphatase 133 40 - 150 U/L 06/05/2024 9:15 AM [facility] ALT 30 5 - 55 U/L 06/05/2024 9:15 AM [facility] AST 38(H) 5 - 34 U/L 06/05/2024 9:15 AM [facility] Anion Gap 8 6 - 16 06/05/2024 9:15 AM [facility] BUN/Creatinine Ratio 14 7 - 23 06/05/2024 9:15 AM [facility] Osmolality Calculated 282 275 - 295 mOsm/kg 06/05/2024 9:15 AM [facility] Albumin/Globulin Ratio 0.7(L) 1.1 - 2.3 06/05/2024 9:15 AM [facility] eGFR by CKD-EPI >90 >=90 mL/min/1.7 3 m2 06/05/2024 9:15 AM [facility] Blood BLOOD SPECIMEN / Unknown Lab Venipuncture / Unknown 06/05/2024 8:08 AM TRANSACTION MANAGER 06/05/2024 8:46 AM TRANSACTION MANAGER Neal Grossman MD LAB - CHEMISTRY ORDChristos VALENTE Performing Organization Address City/[facility]/ZIP Co de Phone Number [address] [address], [facility] [phone] * PHOSPHORUS BLOOD (06/05/2024 8:08 AM TRANSACTION MANAGER) Only the most recent of34 resultswithin the time period is included. Phosphorus 3.3 2.9 - 5.1 mg/dL 06/05/2024 9:15 AM [facility] Blood BLOOD SPECIMEN / Unknown Lab Venipuncture / Unknown 06/05/2024 8:08 AM TRANSACTION MANAGER 06/05/2024 8:46 AM TRANSACTION MANAGER Neal Grossman MD LAB - CHEMISTRY NADIA VALENTE Performing Organization Address City/[facility]/ZIP Co de Phone Number [address] [address], [facility] [phone] * (ABNORMAL) MAGNESIUM BLOOD (06/05/2024 8:08 AM TRANSACTION MANAGER) Only the most recent of34 resultswithin the time period is included. Magnesium 1.5(L) 1.6 - 2.6 mg/dL 06/05/2024 9:15 AM [facility] Blood BLOOD SPECIMEN / Unknown Lab Venipuncture / Unknown 06/05/2024 8:08 AM TRANSACTION MANAGER 06/05/2024 8:46 AM TRANSACTION MANAGER Neal Grossman MD LAB - CHEMISTRY NADIA VALENET [facility] Organization Address City/State/ZIP Co de Phone Number [facility] [address] [place] [address], [facility] [phone] * (ABNORMAL) CBC W AUTO DIFFERENTIAL (05/31/2024 7:04 PM TRANSACTION MANAGER) Only the most recent of30 resultswithin the time period is included. WBC 5.5 4.0 - 10.7 x10E9/L 05/31/2024 7:45 PM [facility] RBC Count 3.51(L) 3.90 - 5.20 x10E12/L 05/31/2024 7:45 PM [facility] Hemoglobin 11.7(L) 11.9 - 15.8 g/dL 05/31/2024 7:45 PM [facility] Hematocrit 33.9(L) 34.8 - 46.1 % 05/31/2024 7:45 PM [facility] MCV 96.6 80.0 - 98.0 fL 05/31/2024 7:45 PM [facility] MCH 33.3 26.7 - 33.6 pg 05/31/2024 7:45 PM [facility] MCHC 34.5 31.7 - 36.3 g/dL 05/31/2024 7:45 PM [facility] RDW-CV 16.4(H) 11.3 - 14.8 % 05/31/2024 7:45 PM [facility] Platelet Count 149(L) 150 - 420 x10E9/L 05/31/2024 7:45 PM [facility] MPV 10.8 7.8 - 11.4 fL 05/31/2024 7:45 PM [facility] Neutrophil % 55.1 41.0 - 74.0 % 05/31/2024 7:45 PM [facility] Lymphocyte % 25.1 17.0 - 47.0 % 05/31/2024 7:45 PM [facility] Monocyte % 13.9(H) 3.0 - 11.0 % 05/31/2024 7:45 PM [facility] Eosinophil % 4.5 0.0 - 7.0 % 05/31/2024 7:45 PM [facility] Basophil % 0.7 0.0 - 1.6 % 05/31/2024 7:45 PM [facility] Immature Granulocytes % 0.7 0.0 - 1.0 % 05/31/2024 7:45 PM [facility] Neutrophil Absolute 3.04 1.60 - 7.50 x10E9/L 05/31/2024 7:45 PM [facility] Lymphocyte Absolute 1.39 1.00 - 4.40 x10E9/L 05/31/2024 7:45 PM [facility] Monocyte Absolute 0.77 0.15 - 1.00 x10E9/L 05/31/2024 7:45 PM [facility] Eosinophil Absolute 0.25 0.00 - 0.60 x10E9/L 05/31/2024 7:45 PM [facility] Basophil Absolute 0.04 0.00 - 0.13 x10E9/L 05/31/2024 7:45 PM [facility] Blood BLOOD SPECIMEN / Unknown Lab Venipuncture / Unknown 05/31/2024 7:04 PM TRANSACTION MANAGER 05/31/2024 7:31 PM TRANSACTION MANAGER Neal Grossman MD LAB - HEMATOLOGY ORD ERABLES [facility] [address] [place] [address], [facility] [phone] * (ABNORMAL) GLUCOSE - POINT OF CARE (05/23/2024 10:19 PM TRANSACTION MANAGER) Only the most recent of70 resultswithin the time period is included. Glucose WB/POC 119(H) 70 - 99 mg/dL 05/24/2024 5:39 AM [facility] Specimen Type Cap Fingerstick 2024 5:39 AM TRANSACTION MANAGER [facility] Blood BLOOD SPECIMEN / Unknown 05/23/2024 10:19 PM TRANSACTION MANAGER 05/24/2024 5:39 AM TRANSACTION MANAGER Mitchel De MD LAB - POINT OF CARE ORDERABLES Performing Organization Address [facility]/ZIP Co de Phone Number [address] [address], [facility] [phone] * PROCALCITONIN LEVEL (05/23/2024 3:06 PM TRANSACTION MANAGER) Only the most recent of2 resultswithin the time period is included. PROCALCITONIN 0.03 <=0.10 ng/mL 05/23/2024 4:21 PM TRANSACTION MANAGER [facility] Blood BLOOD SPECIMEN / Unknown Lab Venipuncture / Unknown 05/23/2024 3:06 PM TRANSACTION MANAGER 05/23/2024 3:17 PM TRANSACTION MANAGER [facility] - 05/23/2024 4:21 PM TRANSACTION MANAGER The change in procalcitonin (PCT) concentration over [...] Change in Procalcitonin Calculator is available at [email or web address] If clinical picture has not improved and PCT remains high, reevaluate and consider treatment failure or other causes. Mitchel De MD LAB - CHEMISTRY NADIA VALENTE Performing Organization Address City/[facility]/ZIP Co de Phone Number [address] [address], [facility] [phone] * SYPHILIS ANTIBODY CASCADING REFLEX (05/23/2024 3:06 PM TRANSACTION MANAGER) Only the most recent of2 resultswithin the time period is included. Treponema pallidum Antibody Non-react grady Non-react grady 05/23/2024 3:59 PM TRANSACTION MANAGER [facility] Comment: No Laboratory evidence of syphilis infection. Note: Circulating antibodies may be low or undetectable in early infection. If recent exposure is suspected, re-draw sample in 2-4 weeks and repeat testing. Blood BLOOD SPECIMEN / Unknown Lab Venipuncture / Unknown 05/23/2024 3:06 PM TRANSACTION MANAGER 05/23/2024 3:17 PM TRANSACTION MANAGER Mitchel De MD LAB - SEROLOGY ORDER GERALDO [address] [address], [facility] [phone] * (ABNORMAL) URINALYSIS REFLEX TO MICROSCOPIC NO CULTURE (05/23/2024 11:05 AM TRANSACTION MANAGER) Color UA Morton(A) Straw, Yellow 05/23/2024 3:42 PM [facility] Clarity UA Slt Cloudy(A) Clear 05/23/2024 3:42 PM [facility] Specific [place] UA 1.024 1.005 - 1.030 05/23/2024 3:42 PM [facility] Comment: Specific gravity results confirmed by refractometer. This is a corrected result. Previous result was >=1.030 on 05/23/2024 at 1129 TRANSACTION MANAGER pH UA 5.5 5.0 - 8.0 pH 05/23/2024 3:42 PM [facility] Protein UA Negative Negative 05/23/2024 3:42 PM [facility] Glucose UA Negative Negative 05/23/2024 3:42 PM [facility] Ketone UA Trace(A) Negative 05/23/2024 3:42 PM [facility] Bilirubin UA 1+(A) Negative 05/23/2024 3:42 PM [facility] Comment:Urine Bilirubin resu lt confirmed by manual Ictotest. Blood UA Negative Negative 05/23/2024 3:42 PM [facility] Nitrite UA Positive(A) Negative 05/23/2024 3:42 PM [facility] Leukocyte Esterase Negative Negative 05/23/2024 3:42 PM [facility] Urobilinogen UA Negative Negative mg/dL 05/23/2024 3:42 PM [facility] RBC UA 6-10(A) None Seen, 0-2, 3-5 /HPF 05/23/2024 3:42 PM [facility] WBC UA 11-20(A) None Seen, 0-5 /HPF 05/23/2024 3:42 PM [facility] Bacteria UA 1+(A) None /HPF 05/23/2024 3:42 PM [facility] Yeast Budding UA Moderate(A) None /HPF 025 3:42 PM [facility] Squamous Epithelial Cells UA 3-5 None Seen, 0-2, 3-5 /HPF 05/23/2024 3:42 PM [facility] Mucus UA 4+ /LPF 05/23/2024 3:42 PM [facility] Hyaline Casts UA 3-5(A) None Seen, 0-2 /LPF 05/23/2024 3:42 PM [facility] Urine URINE SPECIMEN OBTAINED BY CLEAN CATCH PROCEDURE / Unknown Collection / Unknown 05/23/2024 11:05 AM TRANSACTION MANAGER 05/23/2024 11:08 AM [facility] - 05/23/2024 3:42 PM TRANSACTION MANAGER Mitchel De MD LAB - URINALYSIS ORD ERABLES [facility] [address] [place] [address], [facility] [phone] * (ABNORMAL) VITAMIN B12 (05/23/2024 6:20 AM TRANSACTION MANAGER) Only the most recent of2 resultswithin the time period is included. Vitamin B12 >2,000(H) 213 - 816 pg/mL 05/23/2024 10:40 AM TRANSACTION MANAGER [facility] Blood BLOOD SPECIMEN / Unknown Venipuncture / Unknown 05/23/2024 6:20 AM TRANSACTION MANAGER 05/23/2024 6:45 AM TRANSACTION MANAGER Mitchel De MD LAB - CHEMISTRY NADIA Jain Organization Address City/State/ZIP Co de Phone Number [facility] [address] [place] [address], [facility] [phone] * CT Head Wo Contrast (05/19/2024 10:03 AM TRANSACTION MANAGER) Anatomical Region Laterality Modality Head Computed Tomogra phy 05/19/2024 10:2 7 AM TRANSACTION MANAGER Impressions 05/19/2024 10:31 AM TRANSACTION MANAGER IMPRESSION: 1. No acute intracranial process. 2. Chronic small vessel ischemic disease of the brain with cerebral volume loss. > Interpreting Provider: Albert Xiong MD on 05/19/2024 10:31 AM Narrative 05/19/2024 10:31 AM TRANSACTION MANAGER PROCEDURE: CT HEAD WO CONTRAST, DATE/TIME OF EXAM: 05/19/2024 10:05 AM, LOCATION [facility] INDICATION: G93.40: Encephalopathy, unspecified type ADDITIONAL CLINICAL [...] DATE/TIME OF EXAM: 05/19/2024 10:05 AM, LOCATION [facility] INDICATION: G93.40: Encephalopathy, unspecified type ADDITIONAL CLINICAL [...] (ABNORMAL) HGB HCT PANEL (05/18/2024 12:26 PM TRANSACTION MANAGER) Hemoglobin 16.6(H) 11.9 - 15.8 g/dL 05/18/2024 12:52 PM TRANSACTION MANAGER [facility] Hematocrit 50.3(H) 34.8 - 46.1 % 05/18/2024 12:52 PM TRANSACTION MANAGER [facility] Blood BLOOD SPECIMEN / Unknown Lab Venipuncture / Unknown 05/18/2024 12:26 PM TRANSACTION MANAGER 05/18/2024 12:48 PM TRANSACTION MANAGER Mitchel De MD LAB - HEMATOLOGY ORD ERABLES [facility] [address] [place] [address], [facility] [phone] * CK BLOOD (05/18/2024 12:26 PM TRANSACTION MANAGER) CK Total 30 30 - 200 U/L 05/18/2024 1:21 PM TRANSACTION MANAGER [facility] Blood BLOOD SPECIMEN / Unknown Lab Venipuncture / Unknown 05/18/2024 12:26 PM TRANSACTION MANAGER 05/18/2024 12:53 PM TRANSACTION MANAGER Mitchel De MD LAB - CHEMISTRY NADIA VALENTE [facility] [address] [place] [address], [facility] [phone] * XR Abdomen Kub Portable (05/18/2024 10:38 AM TRANSACTION MANAGER) Only the most recent of4 resultswithin the time period is included. Anatomical Region Laterality Modality Abdomen Digital Radiogra phy 05/18/2024 11:5 5 AM TRANSACTION MANAGER Narrative 05/18/2024 5:41 PM TRANSACTION MANAGER PROCEDURE: XR ABDOMEN KUB PORTABLE DATE/TIME OF EXAM: 05/18/2024 10:39 AM Indication: R63.8: Alteration in nutrition associated with tube feeding Additional History: COMPARISON: Abdominal x-ray 05/12/2024 FINDINGS/IMPRESSION: Weighted tip feeding tube courses below the diaphragm and terminates in the gastric fundus, mildly retracted compared to prior abdominal x-ray. Report dictated by Milad Perales MD (vice president of operations). I, Mckenna Alva MD have personally reviewed and interpreted this [...] by Milad Perales MD (vice president of operations). Mckenna Aly MD have personally reviewed and interpreted this examination/study. > Interpreting Provider: Mckenna Alva MD on 05/18/2024 5:41 PM Mitchel De MD DIAGNOSTIC IMAGING O RDERABLES * XR Chest 1Vw Portable (05/18/2024 4:33 AM TRANSACTION MANAGER) Only the most recent of6 resultswithin the time period is included. Anatomical Region Laterality Modality Chest Digital Radiogra phy 05/18/2024 1:20 PM TRANSACTION MANAGER Narrative 05/19/2024 12:31 AM TRANSACTION MANAGER PROCEDURE: XR CHEST 1VW PORTABLE, DATE/TIME OF EXAM: 05/18/2024 4:33 AM, LOCATION [facility] INDICATION: J96.01: Acute respiratory failure with hypoxia [...] silhouette is normal. > Dictated by Julian Florez [facility], [facility] (vice president of operations). Celestine Aly MD have personally reviewed and interpreted this examination/study. > Interpreting Provider: Celestine Ro MD on 05/19/2024 12:31 AM Procedure Note Celestine Ro MD - 05/19/2024 PROCEDURE: XR CHEST 1VW PORTABLE, DATE/TIME OF EXAM: 05/18/2024 4:33 AM, LOCATION [facility] INDICATION: J96.01: Acute respiratory failure with hypoxia [...] silhouette is normal. > Dictated by Julian MOREJON, [facility] (vice president of operations). I, Celestine Ro MD have personally reviewed and interpreted this examination/study. > Interpreting Provider: Celestine Ro MD on 05/19/2024 12:31 AM Mitchel De MD DIAGNOSTIC IMAGING O RDERABLES * EKG 12-LEAD (05/16/2024 5:03 PM TRANSACTION MANAGER) Only the most recent of2 resultswithin the time period is included. Ventricular Rate 92 BPM [facility] MUSE Atrial Rate 92 BPM [facility] MUSE P-R Interval 148 ms [facility] MUSE QRS Duration ms 78 ms [facility] MUSE Q-T Interval ms 392 ms [facility] MUSE QTC Calculation (Bezet) 484 ms [facility] MUSE Calculated P [place] 46 degrees [facility] MUSE Calculated R [place] 30 degrees [facility] MUSE Calculated T [place] 12 degrees [facility] MUSE Interpretation EKG NORMAL SINUS RHYTHM PROLONGED QT ABNORMAL ECG WHEN COMPARED WITH ECG OF 13-MAY-2024 06:43, NO SIGNIFICANT CHANGE WAS FOUND Confirmed by EMIL RIVERA MD ([id number]) on 05/18/2024 2:55:51 PM [facility] 05/16/2024 5:03 PM TRANSACTION MANAGER 05/18/2024 2:55 PM TRANSACTION MANAGER Nuha Segal MD ECG ORDERABLES [facility] MUSE * AMMONIA (05/16/2024 4:41 PM TRANSACTION MANAGER) Only the most recent of2 resultswithin the time period is included. Ammonia 49 <=72 umol/L 05/16/2024 5:02 PM TRANSACTION MANAGER [facility] Blood BLOOD SPECIMEN / Unknown Venipuncture / Unknown 05/16/2024 4:41 PM TRANSACTION MANAGER 05/16/2024 5:02 PM TRANSACTION MANAGER Nuha Segal MD LAB - CHEMISTRY NADIA Jain Organization Address City/State/ZIP Co de Phone Number [facility] [address] [place] [address], [facility] [phone] * (ABNORMAL) BLOOD GASES ART + COOX PANEL (05/16/2024 4:23 PM TRANSACTION MANAGER) Only the most recent of6 resultswithin the time period is included. pH Arterial 7.43 7.35 - 7.45 pH 05/16/2024 4:38 PM [facility] pO2 Arterial 133(H) 80 - 100 mmHg 05/16/2024 4:38 PM [facility] pCO2 Arterial 34(L) 35 - 45 mmHg 4:38 PM [facility] HCO3 Arterial 22.6 20.0 - 30.0 mmol/L 05/16/2024 4:38 PM [facility] BE Arterial -0.9 -2.0 - 2.0 mmol/L 05/16/2024 4:38 PM [facility] Oxyhemoglobin Arterial 96.9 % 05/16/2024 4:38 PM [facility] Dexoyhemoglobin (HHB) % <1.0 % 05/16/2024 4:38 PM [facility] Methemoglobin <0.8 0.0 - 2.0 % 05/16/2024 4:38 PM [facility] Carboxyhemoglobin 2.1(H) 0.0 - 2.0 % 2023 4:38 PM [facility] O2 Content Arterial 23.9 Interpret within clinical context ml/dL 05/16/2024 4:38 PM [facility] Hemoglobin by COOX 17.4(H) 12.0 - 15.6 g/dL 05/16/2024 4:38 PM [facility] O2 Saturation Arterial 100 90 - 100 % 05/16/2024 4:38 PM [facility] FI O2 Arterial 100.0 % 05/16/2024 4:38 PM [facility] Blood, arterial ARTERIAL BLOOD SPECIMEN / Unknown Arterial Puncture / Unknown 05/16/2024 4:23 PM TRANSACTION MANAGER 05/16/2024 4:28 PM [facility] - 05/16/2024 4:38 PM TRANSACTION MANAGER Carboxyhemoglobin Normal Concentration: Non-smokers: 0-2%; Smokers: 0-9%; Toxic: >20% Nuha Segal MD LAB - BLOOD GASES OR DERABLES Performing Organization Address [facility]/State/[facility] Co de Phone Number [facility] [address] [place] [address], [facility] [phone] * (ABNORMAL) BASIC METABOLIC PANEL (CALCIUM TOTAL) (05/16/2024 4:12 PM TRANSACTION MANAGER) BUN 21 7 - 26 mg/dL 05/16/2024 5:16 PM [facility] Creatinine 0.70 0.56 - 0.96 mg/dL 05/16/2024 5:16 PM [facility] Sodium 148(H) 136 - 145 mmol/L 05/16/2024 5:16 PM [facility] Potassium 3.8 3.5 - 4.5 mmol/L 05/16/2024 5:16 PM [facility] Chloride 118(H) 98 - 107 mmol/L 05/16/2024 5:16 PM [facility] CO2 20(L) 22 - 29 mmol/L 05/16/2024 5:16 PM [facility] Glucose 148(H) 70 - 99 mg/dL 05/16/2024 5:16 PM [facility] Calcium 9.9 8.4 - 10.2 mg/dL 05/16/2024 5:16 PM [facility] Anion Gap 10 6 - 16 05/16/2024 5:16 PM [facility] BUN/Creatinine Ratio 30(H) 7 - 23 05/16/2024 5:16 PM [facility] Osmolality Calculated 312(H) 275 - 295 mOsm/kg 05/16/2024 5:16 PM [facility] eGFR by CKD-EPI >90 >=90 mL/min/1.7 3 m2 05/16/2024 5:16 PM [facility] Blood BLOOD SPECIMEN / Unknown Lab Venipuncture / Unknown 05/16/2024 4:12 PM TRANSACTION MANAGER 05/16/2024 4:30 PM TRANSACTION MANAGER Nuha Segal MD LAB - CHEMISTRY NADIA VALENTE [address] [address], [place] [phone] * PTT [facility] (05/16/2024 6:20 AM TRANSACTION MANAGER) Only the most recent of3 resultswithin the time period is included. Pathologist [facility] APTT 34.8 23.0 - 38.4 Seconds 05/16/2024 6:59 AM TRANSACTION MANAGER [facility] Comment:Suggested therapeuti c range for full dose I.V. unfractionated heparin therapy for venous thromboembolism is 71 to 109 seconds. Blood BLOOD SPECIMEN / Unknown Lab Venipuncture / Unknown 05/16/2024 6:20 AM TRANSACTION MANAGER 05/16/2024 6:34 AM TRANSACTION MANAGER Hiren Matias MD LAB - COAGULATION OR DERABLES Performing Organization Address City/[facility]/ZIP Co de Phone Number [address] [address], [place] [phone] * FERRITIN (05/14/2024 4:05 PM TRANSACTION MANAGER) [facility] Ferritin 534 ng/mL 05/14/2024 5:13 PM TRANSACTION MANAGER [facility] Blood BLOOD SPECIMEN / Unknown Lab Venipuncture / Unknown 05/14/2024 4:05 PM TRANSACTION MANAGER 05/14/2024 4:11 PM TRANSACTION MANAGER Hiren Matias MD LAB - CHEMISTRY NADIA VALENTE [address] [address], [place] [phone] * MRSA DNA PCR (05/14/2024 2:47 PM TRANSACTION MANAGER) [facility] MRSA DNA by PCR Not detected Not detected 05/14/2024 7:[address] [facility] MICROBIOLOGY Microbiology SPECIMEN FROM NASAL FOSSAE / Unknown Collection / Unknown 05/14/2024 2:47 PM TRANSACTION MANAGER 05/14/2024 2:51 PM TRANSACTION MANAGER Narrative [facility] MICROBIOLOGY - 05/14/2024 7:24 PM TRANSACTION MANAGER Methicillin-resistant Staphylococcus aureus (MRSA) DNA is not detected (presumed not colonized with MRSA). Jun Allen MD LAB - MICROBIOLOGY O RDERABLES [facility] MICROBIOLOGY [address] [place] [address], [facility] [phone] * (ABNORMAL) BLOOD GASES PAT + COOX PANEL (05/14/2024 2:46 PM TRANSACTION MANAGER) pH Venous 7.51(H) 7.32 - 7.42 pH 05/14/2024 2:56 PM [facility] pO2 Venous 53(H) 35 - 40 mmHg 05/14/2024 2:56 PM [facility] pCO2 Venous 29(L) 40 - 50 mmHg 05/14/2024 2:56 PM [facility] HCO3 Venous 23.1 20 - 30 mmol/L 05/14/2024 2:56 PM [facility] Base Excess Venous 1.2 -2.0 - 2.0 mmol/L 05/14/2024 2:56 PM [facility] Oxyhemoglobin Venous 81.8 % 04/18 2:56 PM [facility] Deoxyhemoglobin (HHB) Venous % 15.4 % 05/14/2024 2:56 PM [facility] Methemoglobin 1.1 0.0 - 2.0 % 05/14/2024 2:56 PM [facility] Carboxyhemoglobin 1.7 0.0 - 2.0 % 2023 2:56 PM [facility] O2 Content Venous 17.2 Interpret within clinical context ml/dL 05/14/2024 2:56 PM [facility] Hemoglobin by COOX 15.0 g/dL 2023 2:56 PM [facility] O2 Saturation Venous 84 >=70 % 04/18 2:56 PM TRANSACTION MANAGER [facility] FI O2 Mixed Venous 36.0 % 2023 2:56 PM TRANSACTION MANAGER [facility] Blood BLOOD SPECIMEN / Unknown Venipuncture / Unknown 05/14/2024 2:46 PM TRANSACTION MANAGER 05/14/2024 2:51 PM TRANSACTION MANAGER Narrative [facility] - 05/14/2024 2:56 PM TRANSACTION MANAGER Carboxyhemoglobin Normal Concentration: Non-smokers: 0-2%; Smokers: 0-9%; Toxic: >20% Nuha Segal MD LAB - BLOOD GASES OR DERABLES [address] [address], [facility] [phone] * (ABNORMAL) BILIRUBIN DIRECT (05/14/2024 6:23 AM TRANSACTION MANAGER) Bilirubin Conjugated 1.4(H) 0.1 - 0.5 mg/dL 05/14/2024 7:16 AM TRANSACTION MANAGER [facility] Blood BLOOD SPECIMEN / Unknown Lab Venipuncture / Unknown 05/14/2024 6:23 AM TRANSACTION MANAGER 05/14/2024 6:42 AM TRANSACTION MANAGER Hiren Matias MD LAB - CHEMISTRY NADIA [place]ENT[place] [address] [address], [facility] [phone] * CULTURE SPUTUM+GRAM STAIN (05/11/2024 1:48 PM TRANSACTION MANAGER) Only the most recent of2 resultswithin the time period is included. Culture Rare normal oropharyngeal catarino SAURABH 05/13/2024 10:26 AM TRANSACTION MANAGER [facility]CRO[facility] Gram Stain Light Polymorphonuclear cells 05/13/2024 10:26 AM TRANSACTION MANAGER [facility] Gram Stain No organisms seen 024 10:26 AM TRANSACTION MANAGER [facility] Microbiology SPUTUM / Unknown Collection / Unknown 05/11/2024 1:48 PM TRANSACTION MANAGER 05/11/2024 2:03 PM TRANSACTION MANAGER Hiren Matias MD LAB - MICROBIOLOGY O RDERABLES [facility] [address] [place], [place] [address], [facility] [phone] * (ABNORMAL) DIFFERENTIAL MANUAL (05/06/2024 12:01 AM [facility]) Only the most recent of3 resultswithin the time period is included. Neutrophil % 60 41 - 74 % 05/06/2024 2:01 AM [facility] Lymphocyte % 18 17 - 47 % 05/06/2024 2:01 AM [facility] Monocyte % 18(H) 3 - 11 % 05/06/2024 2:01 AM [facility] Eosinophil % 3 0 - 7 % 05/06/2024 2:01 AM [facility] Basophil % 1 0 - 2 % 05/06/2024 2:01 AM [facility] Neutrophil Absolute 4.86 1.60 - 7.50 x10E9/L 05/06/2024 2:01 AM [facility] Lymphocyte Absolute 1.46 1.00 - 4.40 x10E9/L 05/06/2024 2:01 AM [facility] Monocyte Absolute 1.46(H) 0.15 - 1.00 x10E9/L 05/06/2024 2:01 AM [facility] Eosinophil Absolute 0.24 0.00 - 0.60 x10E9/L 05/06/2024 2:01 AM [facility] Basophil Absolute 0.08 0.00 - 0.13 x10E9/L 05/06/2024 2:01 AM [facility] RBC Morphology REVIEWED 05/06/2024 2:01 AM [facility] Macrocytosis MODERATE(A) (none) 05/06/2024 2:01 AM [facility] Polychromatic Cells MODERATE(A) (none) 05/06/2024 2:01 AM [facility] Schistocytes FEW(A) (none) 05/06/2024 2:01 AM [facility] Blood BLOOD SPECIMEN / Unknown Venipuncture / Unknown 05/06/2024 12:01 AM TRANSACTION MANAGER 05/06/2024 12:39 AM TRANSACTION MANAGER Jun Allen MD LAB - HEMATOLOGY ORD AMAN Performing Organization Address City/[facility]/ZIP Co de Phone Number [address] [address], [facility] [phone] * TRIGLYCERIDES BLOOD (05/05/2024 12:43 AM TRANSACTION MANAGER) Triglycerides 102 <150 mg/dL 05/05/2024 1:20 AM TRANSACTION MANAGER [facility] Comment: ATP III Classification of Triglycerides: <150 mg/dL: Normal 150 - 199 mg/dL: Borderline High 200 - 400 mg/dL: High >500 mg/dL: Very High Blood BLOOD SPECIMEN / Unknown Venipuncture / Unknown 05/05/2024 12:43 AM TRANSACTION MANAGER 05/05/2024 12:52 AM TRANSACTION MANAGER Jun Allen MD LAB - CHEMISTRY NADIA VALENTE Performing Organization Address City/[facility]/ZIP Co de Phone Number [address] [address], [place] [phone] * US Abdomen Ltd W Comp Doppler (05/04/2024 4:11 PM TRANSACTION MANAGER) Anatomical Region Laterality Modality Abdomen Ultrasound 05/04/2024 3:57 PM TRANSACTION MANAGER Impressions 05/04/2024 5:16 PM TRANSACTION MANAGER IMPRESSION: 1.Hepatic cirrhosis without discrete hepatic lesion. [...] by Calvin Schroeder MD (vice president of operations). I, Darryl Ayala MD have personally reviewed and interpreted this examination/study. > Interpreting Provider: Darryl Ayala MD on 05/04/2024 5:16 PM Narrative 05/04/2024 5:16 PM TRANSACTION MANAGER PROCEDURE: US ABDOMEN LTD W COMP DOPPLER, DATE/TIME OF EXAM: 05/04/2024 2:45 PM, LOCATION [facility] INDICATION: K72.90: Decompensated cirrhosis (HCC) K74.60: Decompensated [...] DOPPLER, DATE/TIME OF EXAM:05/04/2024 2:45 PM, LOCATION [facility] INDICATION: K72.90: Decompensated cirrhosis (HCC) K74.60: Decompensated [...] by Calvin Schroeder MD (vice president of operations). I, Darryl Ayala MD have personally reviewed and interpreted this examination/study. > Interpreting Provider: Darryl Ayala MD on 05/04/2024 5:16 PM Osmani Myers MD US ORDERABLES * (ABNORMAL) IRON + TRANSFERRIN PANEL (05/03/2024 6:45 PM TRANSACTION MANAGER) Iron 292 ug/dL 05/03/2024 11:55 PM TRANSACTION MANAGER [facility] Transferrin 97(L) 174 - 382 mg/dL 05/03/2024 11:55 PM TRANSACTION MANAGER [facility] Transferrin Saturation % 100(H) 16 - 50 % 05/03/2024 11:55 PM TRANSACTION MANAGER [facility] TIBC Calculated 121 ug/dL 11:55 PM TRANSACTION MANAGER [facility] Blood BLOOD SPECIMEN / Unknown Venipuncture / Unknown 05/03/2024 6:45 PM TRANSACTION MANAGER 05/03/2024 6:47 PM TRANSACTION MANAGER Osmani Myers MD LAB - CHEMISTRY ORDE AMBROSIO Performing Organization Address [facility]/State/ZIP Co de Phone Number [facility] [address] [place] [address], [facility] [phone] * (ABNORMAL) URINE MICROSCOPIC ONLY REFLEX TO CULTURE (05/03/2024 2:49 PM TRANSACTION MANAGER) Reflex Status Culture to follow 05/03/2024 3:26 PM [facility] RBC UA 51-100(A) None Seen, 0-2, 3-5 /HPF 05/03/2024 3:26 PM [facility] WBC UA 21-50(A) None Seen, 0-5 /HPF 05/03/2024 3:26 PM [facility] Squamous Epithelial Cells UA 0-2 None Seen, 0-2, 3-5 /HPF 05/03/2024 3:26 PM [facility] Mucus UA 2+ /LPF 05/03/2024 3:26 PM [facility] Hyaline Casts UA 11-20(A) None Seen, 0-2 /LPF 05/03/2024 3:26 PM [facility] Urine URINE SPECIMEN OBTAINED BY CLEAN CATCH PROCEDURE / Unknown Collection / Unknown 05/03/2024 2:49 PM TRANSACTION MANAGER 05/03/2024 2:54 PM TRANSACTION MANAGER [facility] - 05/03/2024 3:26 PM TRANSACTION MANAGER Jun Allen MD LAB - URINALYSIS ORD AMAN [facility] [address] [place] [address], [facility] [phone] * (ABNORMAL) URINALYSIS REFLEX MICROSCOPIC REFLEX CULTURE (05/03/2024 2:49 PM TRANSACTION MANAGER) Color UA Yellow Straw, Yellow 05/03/2024 3:23 PM [facility] Clarity UA Slt Cloudy(A) Clear 05/03/2024 3:23 PM [facility] Specific [place] UA 1.011 1.005 - 1.030 05/03/2024 3:23 PM [facility] pH UA 5.0 5.0 - 8.0 pH 05/03/2024 3:23 PM [facility] Protein UA Negative Negative 05/03/2024 3:23 PM [facility] Glucose UA Negative Negative 05/03/2024 3:23 PM [facility] Ketone UA Negative Negative 05/03/2024 3:23 PM [facility] Bilirubin UA Negative Negative 05/03/2024 3:23 PM [facility] Blood UA 1+(A) Negative 05/03/2024 3:23 PM [facility] Nitrite UA Negative Negative 05/03/2024 3:23 PM [facility] Leukocyte Esterase Negative Negative 05/03/2024 3:23 PM [facility] Urobilinogen UA Negative Negative mg/dL 05/03/2024 3:23 PM [facility] Urine URINE SPECIMEN OBTAINED BY CLEAN CATCH PROCEDURE / Unknown Collection / Unknown 05/03/2024 2:49 PM TRANSACTION MANAGER 05/03/2024 2:54 PM TRANSACTION MANAGER [facility] - 05/03/2024 3:23 PM TRANSACTION MANAGER Jun Allen MD LAB - URINALYSIS ORD ERABLES Performing Organization Address City/State/[facility] Co de Phone Number [address] [address], [facility] [phone] * STREP PNEUMONIAE ANTIGEN URINE (05/03/2024 2:49 PM TRANSACTION MANAGER) Pathologist [facility] Streptococcus pneumoniae Antigen Urine Negative Negative 05/04/2024 8:[address] [facility] Urine URINE / Unknown Collection / Unknown 05/03/2024 2:49 PM TRANSACTION MANAGER 05/03/2024 2:54 PM TRANSACTION MANAGER Narrative [facility] - 05/04/2024 8:42 AM TRANSACTION MANAGER Patients who have received the Streptococcus pneumoniae [...] Bravo MD LAB - MICROBIOL OGY ORDERABLES [facility] [address] [place] [address], [facility] [phone] * LEGIONELLA ANTIGEN URINE (05/03/2024 2:49 PM TRANSACTION MANAGER) Pathologist [facility] Legionella Antigen Urine Negative Negative 05/04/2024 8:13 AM TRANSACTION MANAGER [facility] Urine URINE / Unknown Collection / Unknown 05/03/2024 2:49 PM TRANSACTION MANAGER 05/03/2024 2:54 PM TRANSACTION MANAGER Narrative [facility] - 05/04/2024 8:13 AM TRANSACTION MANAGER This assay detects Legionella pneumophila serogroup one (1) antigen. A negative test result does not rule out the possibility of Legionella infection due to other serogroups or species of Legionella. A positive result may indicate a recent or remote infection with serogroup 1. Eder Bravo MD LAB - MICROBIOL OGY ORDERABLES Performing Organization Address [facility] de Phone Number [facility] [address] [place] [address], [facility] [phone] * CULTURE URINE (05/03/2024 2:49 PM TRANSACTION MANAGER) Pathologist [facility] Culture Urine No growth (<100 CFU/mL) SAURABH 05/05/2024 12:31 AM TRANSACTION MANAGER [facility] Urine URINE SPECIMEN OBTAINED BY CLEAN CATCH PROCEDURE / Unknown Collection / Unknown 05/03/2024 2:49 PM TRANSACTION MANAGER 05/03/2024 3:26 PM TRANSACTION MANAGER Jun Allen MD LAB - MICROBIOLOGY O RDERABLES Performing Organization Address [facility] Co de Phone Number [facility] [address] [place] [address], [facility] [phone] * ECHO COMPLETE W CONTRAST W BUBBLE STUDY (05/03/2024 2:00 PM TRANSACTION MANAGER) Pathologist [facility] RVOT diam Doppler 2.642 cm [facility] CV FUJI PACS Aortic annulus 2.408 cm [facility] C V FUJI PACS Sinus of Valsalva 2.838 cm [facility] CV [facility]UJ[facility] PACS ST junction 2.572 cm [facility] CV F U PACS LA vol index 0.048 l/m [facility] CV [facility] PACS Myocardial strain charge 2 unitless [facility] CV [facility] PACS IVSd 2D 1.258 cm [facility] CV [facility] I PACS LVIDd 4.736 cm [facility] CV [facility] I PACS LVIDs 2.611 cm [facility] CV [facility] I PACS LVOT diam 2.178 cm SSM CV [facility] I PACS LVPWd 1.239 cm [facility] CV [facility] I PACS LV biplane EF 83.315 % [facility] CV [facility] PACS LV A2C EF 82.876 % [facility] CV [facility] I PACS LV A4C EF 84.968 % [facility] CV [facility] I PACS LV EDV A2C 135.994 ml SSM CV FU JI PACS LV EDV A4C 132.897 ml [facility]SM CV FU JI PACS LV ESV A2C 23.287 ml SSM CV FU JI PACS LV ESV A4C 19.977 ml SSM CV FU PACS LVOT pk andrew 156.13 cm/s SSM CV F U PACS LVOT VTI 29.583 cm [facility] CV [facility] PACS RV-gallego basal diam 3.253 cm SSM CV [facility] PACS RVIDd 3.1 cm SSM CV [facility] I PACS RVOT pk andrew 94.211 cm/s [facility]SM CV F U PACS RVOT VTI 20.129 cm SSM CV [facility] I PACS LA size 4.79 cm [facility]SM CV [facility] PACS LA vol BP 86.983 ml SSM CV [facility] I PACS RA area 16.209 cm [facility] CV [facility] PACS AV mn grad 7.512 mmHg SSM CV FU JI PACS AV pk andrew 192.865 cm/s [facility] CV [facility] I PACS AV VTI 36.105 cm SSM CV [facility] I PACS MV A pk andrew 90.525 cm/s SSM CV F U PACS MV E pk andrew 107.95 cm/s SSM CV F U PACS MV E' lateral anrdew 13.245 cm/s [facility] CV [facility] PACS MV lat a' andrew 10.849 cm/s [facility] CV [facility] PACS MV lat S' andrew 12.656 cm/s [...] Region Laterality Modality Ultrasound 05/03/2024 1:20 PM TRANSACTION MANAGER Narrative 05/03/2024 9:47 PM TRANSACTION MANAGER Summary * Findings consistent with elevated venous [...] 1:20 PM Patient Status: I/P Study Site: [facility] Primary Location: [facility] Info Technical Quality: Fair Exam Type: [...] Provider: Jun Allen Attending Physician: Jun Allen Social Service Assistant: Willard Wallis Left Ventricle The left ventricle [...] is no pericardial effusion. Patient Info Name: mAee Oconnell Age: 49 years : 1975 Gender: Other Ht: 64 in Wt: 155 lb BSA: 1.80 m2 HR: 64 bpm BP: 103 / 53 mmHg Exam Date: 05/03/2024 1:20 PM Patient Status: I/P Study Site: [facility] Primary Location: [facility] EStud Info Technical Quality: Fair Exam Type: ECHO [...] Provider: Jun Allen Attending Physician: Jun Allen Social Service Assistant: Willard Wallis Left Ventricle The left ventricle [...] CUPID * CULTURE BLOOD (05/03/2024 12:24 PM TRANSACTION MANAGER) Only the most recent of2 resultswithin the time period is included. Pathologist [facility] Culture No growth day 5 SAURABH 05/08/2024 4:31 PM TRANSACTION MANAGER [facility] Blood PERIPHERAL BLOOD / Unknown Venipuncture / Unknown 05/03/2024 12:24 PM TRANSACTION MANAGER 05/03/2024 1:00 PM TRANSACTION MANAGER Jun Allen MD LAB - MICROBIOLOGY O VANIA [facility] [address] [place] [phone] * LACTIC ACID BLOOD (05/03/2024 12:24 PM TRANSACTION MANAGER) Only the most recent of4 resultswithin the time period is included. Pathologist [facility] Lactic Acid-Stat 1.6 <=2.0 mmol/L 05/03/2024 1:03 PM TRANSACTION MANAGER [facility] Blood BLOOD SPECIMEN / Unknown Venipuncture / Unknown 05/03/2024 12:24 PM TRANSACTION MANAGER 05/03/2024 12:32 PM TRANSACTION MANAGER Jun Allen MD LAB - CHEMISTRY ORDE AMBROSIO [facility] [address] [place] [address], [place] [phone] * HIV-1 HIV-2 ANTIBODY + HIV P24 AG PANEL (05/03/2024 12:58 AM TRANSACTION MANAGER) HIV Antigen/Antibod y 1 & 2 Non-reacti ve Non-react grady 05/03/2024 2:15 AM [facility] Comment:No Laboratory eviden ce of HIV infection. Blood BLOOD SPECIMEN / Unknown Venipuncture / Unknown 05/03/2024 12:58 AM TRANSACTION MANAGER 05/03/2024 1:26 AM TRANSACTION MANAGER Jun Allen MD LAB - CHEMISTRY ORDChristos VALENTE Performing Organization Address City/[facility]/ZIP Co de Phone Number [facility] [address] [place] [address], [facility] [phone] * HEMOGLOBIN A1C (05/03/2024 12:58 AM TRANSACTION MANAGER) Pathologist [facility] Hemoglobin A1c 5.0 <=5.6 % 05/03/2024 8:56 AM [facility] Estimated Average Glucose 97 mg/dL 05/03/2024 8:56 AM [facility] Comment: HbA1c Interpretation: Normal : < 5.7% Pre-diabetes: 5.7-6.4% Diabetes: Equal to or greater than 6.5% Test results diagnostic of diabetes should be repeated for confirmation. Treatment target values recommended by ADA and other clinical organizations should be used to evaluate metabolic control in patients. Reference: [place] [employer], Standards of Care in Diabetes -2020 In patients 70 years and older consider HbA1c target range of 7.0-7.5% (Reference: Jaime Adair et al. JAMDA. 2012) The Sebia assay for the measurement of HbA1c is a National Glycohemoglobin Standardization Program (NGSP) certified method. Blood BLOOD SPECIMEN / Unknown Venipuncture / Unknown 05/03/2024 12:58 AM TRANSACTION MANAGER 05/03/2024 1:57 AM TRANSACTION MANAGER Jun Allen MD LAB - CHEMISTRY ORDE RABLES [facility] [place] [address], [facility] [phone] * RESPIRATORY PANEL WITH SARS-COV-2 BY PCR (STL) (05/02/2024 10:30 PM TRANSACTION MANAGER) Adenovirus PCR Not detected Not detected 05/03/2024 7:10 AM TRANSACTION MANAGER [facility] Coronavirus 229E PCR Not detected Not detected 05/03/2024 7:10 AM TRANSACTION MANAGER [facility] Coronavirus HKU1 PCR Not detected Not detected 05/03/2024 7:10 AM TRANSACTION MANAGER [facility] Coronavirus NL63 PCR Not detected Not detected 05/03/2024 7:10 AM TRANSACTION MANAGER [facility] Coronavirus OC43 PCR Not detected Not detected 05/03/2024 7:10 AM TRANSACTION MANAGER [facility] COVID-19 PCR Not detected Not detected 05/03/2024 7:10 AM TRANSACTION MANAGER [facility] Human Metapneumovirus PCR Not detected Not detected 05/03/2024 7:10 AM TRANSACTION MANAGER [facility] Human Rhinovirus/Enterov irus PCR Not detected Not detected 05/03/2024 7:10 AM TRANSACTION MANAGER [facility] Influenza A PCR Not detected Not detected 05/03/2024 7:10 AM TRANSACTION MANAGER [facility] Influenza B PCR Not detected Not detected 05/03/2024 7:10 AM TRANSACTION MANAGER [facility] Parainfluenza Virus 1 PCR Not detected Not detected 05/03/2024 7:10 AM TRANSACTION MANAGER [facility] Parainfluenza Virus 2 PCR Not detected Not detected 05/03/2024 7:10 AM TRANSACTION MANAGER [facility] Parainfluenza Virus 3 PCR Not detected Not detected 05/03/2024 7:10 AM TRANSACTION MANAGER [facility] Parainfluenza Virus 4 PCR Not detected Not detected 05/03/2024 7:10 AM TRANSACTION MANAGER [facility] Respiratory Syncytial Virus PCR Not detected Not detected 05/03/2024 7:10 AM TRANSACTION MANAGER [facility] Bordetella parapertussis PCR Not detected Not detected 05/03/2024 7:10 AM TRANSACTION MANAGER [facility] Bordetella pertussis PCR Not detected Not detected 05/03/2024 7:10 AM TRANSACTION MANAGER [facility] Chlamydia pneumoniae PCR Not detected Not detected 05/03/2024 7:[address] [facility] Mycoplasma pneumoniae PCR Not detected Not detected 05/03/2024 7:[address] [facility] Microbiology SPECIMEN FROM NASOPHARYNGEAL STRUCTURE / Unknown Collection / Unknown 05/02/2024 10:30 PM TRANSACTION MANAGER 05/03/2024 1:26 AM TRANSACTION MANAGER Narrative [facility] - 05/03/2024 7:10 AM TRANSACTION MANAGER This nucleic amplification assay has received FDA authorization via the [employer]. Jun Allen MD LAB - MICROBIOLOGY O VANIA Performing Organization Address City/[facility]/ZIP Co de Phone Number [facility] [address] [place] [address], [facility] [phone] * CULTURE MRSA (05/02/2024 10:30 PM TRANSACTION MANAGER) Culture Negative for methicillin-resist ant Staphylococcus aureus (MRSA) SAURABH 05/04/2024 7:[address] [facility] Microbiology SPECIMEN FROM NASAL FOSSAE / Unknown Collection / Unknown 05/02/2024 10:30 PM TRANSACTION MANAGER 05/03/2024 1:27 AM TRANSACTION MANAGER Jun Allen MD LAB - MICROBIOLOGY O VANIA Performing Organization Address [facility]/ZIP Co de Phone Number [facility] [address] [place] [address], [facility] [phone] * VANCOMYCIN LEVEL RANDOM (05/02/2024 10:21 PM TRANSACTION MANAGER) Vancomycin Random 17.5 Therapeutic Ranges not established for random specimens ug/mL 05/02/2024 11:05 PM TRANSACTION MANAGER [facility] Blood BLOOD SPECIMEN / Unknown Venipuncture / Unknown 05/02/2024 10:21 PM TRANSACTION MANAGER 05/02/2024 10:32 PM TRANSACTION MANAGER Narrative [facility] - 05/02/2024 11:05 PM TRANSACTION MANAGER See institution protocol. Jun Allen MD LAB - CHEMISTRY NADIA VALENTE [facility] [address] [place] [address], [facility] [phone] * PHOSPHATIDYLETHANOL (PETH) (05/02/2024 9:14 PM TRANSACTION MANAGER) PEth 16:0/18.1 (POPEth) 59 ng/mL 05/05/2024 3:22 PM [facility] [employer] ([facility]) Comment: PEth 16:0/18:1 (POPEth) Less than 10 ng/mL............Not detected Less than 20 ng/mL............Abstinence or light alcohol consumption 20 - 200 ng/mL................Moderate alcohol consumption Greater than 200 ng/mL........Heavy alcohol consumption or chronic alcohol use (Reference: Rufino Rae and Jory Chavis 2018 J. Forensic Sci) PEth 16:0/18.2 (PLPEth) 13 ng/mL 05/05/2024 3:22 PM [facility] [employer] ([facility]) Comment:Reference ranges are not well established. EER Peth See Note 05/05/2024 3:22 PM [facility] [employer] ([facility]) Comment: Authorized individuals can access the [employer] Enhanced Report with an [employer] Connect account using the following link. Your local lab can assist you in obtaining the patient report if you don't have a Connect account. [email or web address] Interpretation PEth See Comment 05/05/2024 3:22 PM [facility] [employer] ([facility]) Comment: Phosphatidylethanol (PEth) is a group of [...] developed and its performance characteristics determined by [facility]. It has not been cleared or approved by the U.S. Food and Drug Administration. This test was performed in a CLIA-certified laboratory and is intended for clinical purposes. Performed By: [facility] [address] [place] [address] Residential Aide: Giorgio Poole MD, PhD CLIA Number: [id number] Blood BLOOD SPECIMEN / Unknown Venipuncture / Unknown 05/02/2024 9:14 PM TRANSACTION MANAGER 05/02/2024 10:05 PM TRANSACTION MANAGER Jun Allen MD LAB - CHEMISTRY ORDE AMBROSIO [email or web address] [facility]) [address] [place] [address], [facility] * SMOOTH MUSCLE ANTIBODY W REFLEX TITER (05/02/2024 9:14 PM TRANSACTION MANAGER) F-Actin Antibody IgG 19 0 - 19 Units 05/05/2024 5:30 AM TRANSACTION MANAGER [facility] ([facility]) Comment: If F-Actin (Smooth Muscle) Antibody, IgG [...] suspicion for AIH is strong. Performed By: [facility] [address] [place] [address] Residential Aide: Giorgio Poole MD, PhD CLIA Number: [id number] Blood BLOOD SPECIMEN / Unknown Venipuncture / Unknown 05/02/2024 9:14 PM TRANSACTION MANAGER 05/02/2024 10:05 PM TRANSACTION MANAGER Jun Allen MD LAB - SEROLOGY ORDER [facility]) [address] [place] [address], [facility] * (ABNORMAL) MITOCHONDRIAL ANTIBODY SCREEN (05/02/2024 9:14 PM TRANSACTION MANAGER) Mitochondrial M2 Antibody 47.6(H) 0.0 - 24.9 Units 05/05/2024 5:31 AM TRANSACTION MANAGER [email or web address] ([facility]) Comment: REFERENCE INTERVAL: Mitochondrial (M2) Antibody, IgG [...] does not rule out PBC. Performed By: [facility] [address] [place] [address] Residential Aide: Giorgio Poole MD, PhD CLIA Number: [id number] Blood BLOOD SPECIMEN / Unknown Venipuncture / Unknown 05/02/2024 9:14 PM TRANSACTION MANAGER 05/02/2024 10:05 PM TRANSACTION MANAGER Jun Allen MD LAB - CHEMISTRY ORDE RABLES [facility] ([facility]) [address] [place] [address], [facility] * CERULOPLASMIN (05/02/2024 9:14 PM TRANSACTION MANAGER) Pathologist [facility] Ceruloplasmin 22 20 - 60 mg/dL 05/02/2024 10:43 PM TRANSACTION MANAGER [facility] Blood BLOOD SPECIMEN / Unknown Venipuncture / Unknown 05/02/2024 9:14 PM TRANSACTION MANAGER 05/02/2024 10:05 PM TRANSACTION MANAGER Jun Allen MD LAB - CHEMISTRY NADIA VALENTE Performing Organization Address [facility] Co de Phone Number [address] [address], [facility] [phone] * (ABNORMAL) B-TYPE NATRIURETIC PEPTIDE (05/02/2024 9:14 PM TRANSACTION MANAGER) Pathologist [facility] BNP 193(H) <100 pg/mL 05/02/2024 10:58 PM TRANSACTION MANAGER [facility] Comment: A decision threshold of 100 [...] Unknown Venipuncture / Unknown 05/02/2024 9:14 PM TRANSACTION MANAGER 05/02/2024 10:17 PM TRANSACTION MANAGER Jun Allen MD LAB - CHEMISTRY NADIA VALENTE Performing Organization Address City/[facility]/ZIP Co de Phone Number [address] [address], [facility] [phone] * TSH (05/02/2024 9:14 PM TRANSACTION MANAGER) TSH 2.875 0.350 - 4.940 uIU/mL 05/03/2024 2:26 AM TRANSACTION MANAGER [facility] Blood BLOOD SPECIMEN / Unknown Venipuncture / Unknown 05/02/2024 9:14 PM TRANSACTION MANAGER 05/02/2024 10:17 PM TRANSACTION MANAGER Jun Allen MD LAB - CHEMISTRY NADIA VALENTE [facility] [address] [place] [address], [facility] [phone] from Last 3 Months Advance Directives * Full Code (Latest Code Status on File) Date Activated Date Inactivated Comments 05/02/2024 9:07 PM 06/06/2024 4:40 PM
--- OUTSIDE RECORDS SUMMARY | 2024-07-24 11:00 | XMS_ITS | Referral Summary ---
Author Organization [facility] Address [address] [place] [address] Care Team Providers Care Data Control Clerk Name Role Phone Unavailable Primary Care Provider Unavailabl e Source Comments [facility],non-owned Affiliates and Associated Physician Practices is amultiple site organization consisting of ambulatory clinics and hospital sitesin [place], [place], [place] and [place]. This disclosure is being madepursuant to the Care Everywhere program and may not contain all information available regarding this patient. Last updated 18.[facility] Encounters Date Type Department Care Team Description 05/02/2024 8:30 PM [facility] - 06/06/2024 3:30 PM [facility] Hospital Encounter [facility] [address] [place] [phone] Jun Allen MD Ferguson, Keith T, MD Espiritu, MD Polly Jansen, MD Luzma Nolen Maya, MD Fernelius, Joshua, MD Majeed, MD Rasheed Hilton Aman, DO Smutz, Gloria Wheeler, Internal Medicine Discharge Disposition: Fpc or Supportive Care 05/02/2024 Travel from Last [...] for Cough 06/06/2024 Active saline nasal spray ([place]; Baby [place]) 0.65 % nasal spray [place] 1 (one) spray into each nostril every [...] Active nicotine (Nicoderm CQ) 14 MG/24HR patchIndications:Toba accounts administrator use disorder Apply 1 (one) patch to [...] care, and heating? Not very hard 05/03/2024 [facility] Occupat ional [facility] - Occupational Stress [...] any time in the past 12 m [facility], were you homeless or living in a assisted (including now)? No 05/03/2024 Sex and Gender Information Value Date Recorded Sex Assigned at Not on file Gender Identity Female 05/03/2024 4:30 PM [facility]AL [facility]ARDEN Sexual Orientation Don't know 05/02/2024 9: 14 PM [facility]ARDEN Last Filed Vital Signs Vital Sign Reading Time Taken Comments Blood Pressure 126/64 06/05/2024 11:09 PM [facility] Pulse 67 06/05/2024 11:09 PM [facility] Temperature 36.7 C (98.1 F) 06/05/2024 2:11 PM [facility] Respiratory Rate 16 06/04/2024 3:29 PM [facility]EN Oxygen Saturation 92% 06/05/2024 11:09 PM [facility] Inhaled Oxygen Concentration 40% 05/19/2024 1 2:53 PM [facility] Weight 64.9 kg (143 lb) 06/03/2024 4:00 AM [facility] Height 162.6 cm (5' 4 ) 05/02/2024 8:45 PM [facility] Body Mass Index 24.55 05/02/2024 8:45 PM [facility]ARDEN Functional Status Functional Status Response Date of [...] concentrating/remembering/making decisions? Yes 06/06/2024 Plan of Treatment Upcoming Encounters Date Type Department Care Team (Late st Contact Info) Description 12/13/2024 1:30 PM CDT Office Visit [facility] - [address] [place] [phone] Gloria Rodarte DO [address] [place] [address] Gerald Hui MD [address] [place] [address] Procedures Procedure Name Priority Date/Time Associated Diagnosis Comments PT-INR [facility] Routine 06/05/2024 8:08 AM [facility] PHOSPHORUS BLOOD Routine 06/05/2024 8:08 AM [facility] MAGNESIUM BLOOD Routine 06/05/2024 8:08 AM [facility] COMPREHENSIVE METABOLIC PANEL Routine 06/05/2024 8:08 AM [facility] PT-INR [facility] Routine 06/03/2024 7:23 PM [facility] PHOSPHORUS BLOOD Routine 06/03/2024 7:23 PM [facility] MAGNESIUM BLOOD Routine 06/03/2024 7:23 PM [facility] COMPREHENSIVE METABOLIC PANEL Routine 06/03/2024 7:23 PM [facility] PT-INR [facility] Routine 06/02/2024 7:48 PM [facility] PHOSPHORUS BLOOD Routine 06/02/2024 7:48 PM [facility] MAGNESIUM BLOOD Routine 06/02/2024 7:48 PM [facility] COMPREHENSIVE METABOLIC PANEL Routine 06/02/2024 7:48 PM [facility] PT-INR [facility] Routine 06/01/2024 7:34 PM [facility] PHOSPHORUS BLOOD Routine 06/01/2024 7:34 PM [facility]EN MAGNESIUM BLOOD Routine 06/01/2024 7:34 PM [facility] COMPREHENSIVE METABOLIC PANEL Routine 06/01/2024 7:34 PM AN[facility]AL [facility]EN PT-INR [facility] Routine 05/31/2024 7:04 PM AN[facility]EN PHOSPHORUS BLOOD Routine 05/31/2024 7:04 PM AN[facility]AL WARDEN MAGNESIUM BLOOD Routine 05/31/2024 7:04 PM [facility] COMPREHENSIVE METABOLIC PANEL Routine 05/31/2024 7:04 PM [facility] CBC W AUTO DIFFERENTIAL Routine 05/31/19 7:04 PM [facility] PT-INR [facility] Routine 05/30/2024 6:06 AM [facility] PHOSPHORUS BLOOD AM Draw 05/30/2024 6:06 AM [facility] MAGNESIUM BLOOD AM Draw 05/30/2024 6:06 AM [facility] COMPREHENSIVE METABOLIC PANEL AM Draw 05/30/2024 6:06 AM [facility]AL [facility]ARDEN CBC W AUTO DIFFERENTIAL AM Draw 05/30/19 6:06 AM [facility] PT-INR [facility] Routine 05/29/2024 7:15 AM [facility] PHOSPHORUS BLOOD AM Draw 05/29/2024 7:15 AM [facility] MAGNESIUM BLOOD AM Draw 05/29/2024 7:15 AM [facility] COMPREHENSIVE METABOLIC PANEL AM Draw 05/29/2024 7:15 AM AN[facility]EN CBC W AUTO DIFFERENTIAL AM Draw 05/29/19 7:15 AM [facility] MAGNESIUM BLOOD AM Draw 05/28/2024 12:46 PM [facility] COMPREHENSIVE METABOLIC PANEL AM Draw 05/28/2024 12:46 PM AN[facility] PT-INR [facility] Routine 05/28/2024 6:02 AM [facility] PHOSPHORUS BLOOD AM Draw 05/28/2024 6:02 AM AN[facility]AL [facility]ARD[facility] CBC W AUTO DIFFERENTIAL AM Draw 05/28/19 6:02 AM AN[facility]AL [facility]ARD[facility] PT-INR [facility] Routine 05/27/2024 7:03 AM AN[facility]ARD[facility] PHOSPHORUS BLOOD AM Draw 05/27/2024 7:03 AM AN[facility]ARDEN MAGNESIUM BLOOD AM Draw 05/27/2024 7:03 AM [facility] COMPREHENSIVE METABOLIC PANEL AM Draw 05/27/2024 7:03 AM AN[facility]AL [facility]ARDEN CBC W AUTO DIFFERENTIAL AM Draw 05/27/19 7:03 AM AN[facility]AL [facility]EN PT-INR [facility] Routine 05/26/2024 7:04 AM AN[facility] PHOSPHORUS BLOOD AM Draw 05/26/2024 7:04 AM AN[facility]AL WARDEN MAGNESIUM BLOOD AM Draw 05/26/2024 7:04 AM [facility] COMPREHENSIVE METABOLIC PANEL AM Draw 05/26/2024 7:04 AM AN[facility]AL [facility]ARDEN CBC W AUTO DIFFERENTIAL AM Draw 05/26/19 7:04 AM AN[facility]AL WARDEN PT-INR [facility] Routine 05/25/2024 7:00 AM [facility]ARDEN PHOSPHORUS BLOOD AM Draw 05/25/2024 7:00 AM [facility] MAGNESIUM BLOOD AM Draw 05/25/2024 7:00 AM [facility] COMPREHENSIVE METABOLIC PANEL AM Draw 05/25/2024 7:00 AM [facility] CBC W AUTO DIFFERENTIAL AM Draw 05/25/19 7:00 AM [facility] PT EVAL AND TREAT Routine 05/24/2024 2:0 4 PM [facility] OT EVAL AND TREAT Routine 05/24/2024 2:0 4 PM [facility] PT-INR [facility] Routine 05/24/2024 8:39 AM [facility] PHOSPHORUS BLOOD AM Draw 05/24/2024 8:39 AM [facility] MAGNESIUM BLOOD AM Draw 05/24/2024 8:39 AM [facility] COMPREHENSIVE METABOLIC PANEL AM Draw 05/24/2024 8:39 AM [facility] CBC W AUTO DIFFERENTIAL AM Draw 05/24/19 8:39 AM [facility] GLUCOSE - POINT OF CARE Routine 05/23/19 10:19 PM [facility] PROCALCITONIN LEVEL Routine 05/23/2024 3 :06 PM [facility] SYPHILIS ANTIBODY CASCADING REFLEX Routine 05/23/2024 3:06 PM [facility] URINALYSIS REFLEX TO MICROSCOPIC NO CULTURE Routine 05/23/2024 11:05 AM [facility] VITAMIN B12 Routine 05/23/2024 6:20 AM AN[facility] PT-INR [facility] Routine 05/23/2024 6:20 AM [facility] PHOSPHORUS BLOOD AM Draw 05/23/2024 6:20 AM AN[facility] MAGNESIUM BLOOD AM Draw 05/23/2024 6:20 AM [facility] COMPREHENSIVE METABOLIC PANEL AM Draw 05/23/2024 6:20 AM AN[facility] CBC W AUTO DIFFERENTIAL AM Draw 05/23/19 6:20 AM [facility] PT EVAL AND TREAT Routine 05/22/2024 10: 47 AM [facility] OT EVAL AND TREAT Routine 05/22/2024 10: 47 AM [facility] GLUCOSE - POINT OF CARE Routine 05/22/19 6:14 AM AN[facility]EN PT-INR [facility] Routine 05/22/2024 5:24 AM [facility] PHOSPHORUS BLOOD AM Draw 05/22/2024 5:2 4 AM AN[facility] MAGNESIUM BLOOD AM Draw 05/22/2024 5:24 AM [facility] COMPREHENSIVE METABOLIC PANEL AM Draw 05/22/2024 5:24 AM AN[facility] CBC W AUTO DIFFERENTIAL AM Draw 05/22/19 5:24 AM [facility] GLUCOSE - POINT OF CARE Routine 05/22/19 12:18 AM [facility] GLUCOSE - POINT OF CARE Routine 05/21/19 5:03 PM [facility] GLUCOSE - POINT OF CARE Routine 05/21/19 12:09 PM [facility] PT-INR [facility] Routine 05/21/2024 6:22 AM [facility] PHOSPHORUS BLOOD AM Draw 05/21/2024 6:22 AM [facility] MAGNESIUM BLOOD AM Draw 05/21/2024 6:22 AM [facility] COMPREHENSIVE METABOLIC PANEL AM Draw 05/21/2024 6:22 AM [facility] CBC W AUTO DIFFERENTIAL AM Draw 05/21/19 6:22 AM [facility] GLUCOSE - POINT OF CARE Routine 05/21/19 12:28 AM [facility] GLUCOSE - POINT OF CARE Routine 05/20/19 12:20 PM [facility] PT-INR [facility] Routine 05/20/2024 7:30 AM AN[facility]ARD[facility] CBC W AUTO DIFFERENTIAL AM Draw 05/20/19 7:30 AM [facility] PHOSPHORUS BLOOD AM Draw 05/20/2024 7:29 AM [facility] MAGNESIUM BLOOD AM Draw 05/20/2024 7:29 AM [facility] COMPREHENSIVE METABOLIC PANEL AM Draw 05/20/2024 7:29 AM [facility] GLUCOSE - POINT OF CARE Routine 05/20/19 12:23 AM [facility] GLUCOSE - POINT OF CARE Routine 05/19/19 12:[address] HEAD WO CONTRAST Routine 05/19/2024 1 0:03 AM [facility] Encephalopathy, unspecified type PT-INR [facility] Routine 05/19/2024 7:13 AM [facility] PHOSPHORUS BLOOD AM Draw 05/19/2024 7:13 AM [facility] MAGNESIUM BLOOD AM Draw 05/19/2024 7:13 AM [facility] COMPREHENSIVE METABOLIC PANEL AM Draw 05/19/2024 7:13 AM [facility] CBC W AUTO DIFFERENTIAL AM Draw 05/19/19 7:13 AM AN[facility] GLUCOSE - POINT OF CARE Routine 05/19/19 5:54 AM AN[facility] GLUCOSE - POINT OF CARE Routine 05/19/19 2:03 AM [facility] GLUCOSE - POINT OF CARE Routine 05/18/19 10:51 PM [facility] GLUCOSE - POINT OF CARE Routine 05/18/19 5:57 PM AN[facility] CK BLOOD Routine 05/18/2024 12:26 PM [facility] HGB HCT PANEL Timed 05/18/2024 12:26 PM [facility] GLUCOSE - POINT OF CARE Routine 05/18/19 11:35 AM [facility] XR ABDOMEN KUB PORTABLE STAT 05/18/19 10:38 AM [facility] Alteration in nutrition associated with tube feeding GLUCOSE - POINT OF CARE Routine 05/18/19 6:11 AM [facility] XR CHEST 1VW PORTABLE Routine 05/18/2024 4:33 AM [facility] Acute respiratory failure with hypoxia (HCC) PT-INR [facility] Routine 05/18/2024 2:51 AM [facility] PHOSPHORUS BLOOD AM Draw 05/18/2024 2:51 AM [facility] MAGNESIUM BLOOD AM Draw 05/18/2024 2:51 AM [facility] COMPREHENSIVE METABOLIC PANEL AM Draw 05/18/2024 2:51 AM AN[facility] CBC W AUTO DIFFERENTIAL STAT 05/18/19 2:51 AM [facility] GLUCOSE - POINT OF CARE Routine 05/18/19 12:08 AM [facility] GLUCOSE - POINT OF CARE Routine 05/17/20 4:37 PM [facility] PROCALCITONIN LEVEL Routine 05/17/2024 1 2:04 PM [facility] GLUCOSE - POINT OF CARE Routine 05/17/20 11:24 AM [facility] PT-INR [facility] Routine 05/17/2024 8:29 AM [facility] PHOSPHORUS BLOOD AM Draw 05/17/2024 8:29 AM [facility] MAGNESIUM BLOOD AM Draw 05/17/2024 8:29 AM [facility] COMPREHENSIVE METABOLIC PANEL AM Draw 05/17/2024 8:29 AM [facility] CBC W AUTO DIFFERENTIAL AM Draw 05/17/20 8:29 AM [facility] GLUCOSE - POINT OF CARE Routine 05/17/20 6:48 AM [facility] EKG 12-LEAD STAT 05/16/2024 5:03 PM [facility] Acute respiratory failure with hypoxia (HCC) XR CHEST 1VW PORTABLE STAT 05/16/2024 4:52 PM [facility]ARDEN Acute respiratory failure with hypoxia (HCC) AMMONIA STAT 05/16/2024 4:41 PM [facility] COMPREHENSIVE METABOLIC PANEL STAT 05/16/2024 4:23 PM [facility] BLOOD GASES ART + COOX PANEL STAT 05/16/2024 4:23 PM AN[facility] GLUCOSE - POINT OF CARE Routine 05/16/20 4:15 PM [facility] BASIC METABOLIC PANEL (CALCIUM TOTAL) Routine 05/16/2024 4:12 PM [facility] GLUCOSE - POINT OF CARE Routine 05/16/20 12:31 PM AN[facility]AL [facility] PTT SLH Routine 05/16/2024 6:20 AM [facility] PT-INR [facility] Routine 05/16/2024 6:20 AM [facility] PHOSPHORUS BLOOD AM Draw 05/16/2024 6:20 AM [facility] MAGNESIUM BLOOD AM Draw 05/16/2024 6:20 AM [facility] COMPREHENSIVE METABOLIC PANEL AM Draw 05/16/2024 6:20 AM [facility] CBC W AUTO DIFFERENTIAL AM Draw 05/16/20 6:20 AM [facility] GLUCOSE - POINT OF CARE Routine 05/16/20 5:10 AM [facility] GLUCOSE - POINT OF CARE Routine 05/16/20 1:47 AM [facility] PTT [facility] Routine 05/15/2024 5:28 AM [facility] PT-INR [facility] Routine 05/15/2024 5:28 AM [facility] PHOSPHORUS BLOOD AM Draw 05/15/2024 5:28 AM [facility] MAGNESIUM BLOOD AM Draw 05/15/2024 5:28 AM [facility] COMPREHENSIVE METABOLIC PANEL AM Draw 05/15/2024 5:28 AM AN[facility] CBC W AUTO DIFFERENTIAL AM Draw 05/15/20 5:28 AM AN[facility] GLUCOSE - POINT OF CARE Routine 05/15/20 5:15 AM AN[facility] GLUCOSE - POINT OF CARE Routine 05/15/20 1:06 AM [facility] GLUCOSE - POINT OF CARE Routine 05/14/20 11:14 PM [facility] GLUCOSE - POINT OF CARE Routine 05/14/20 5:35 PM [facility] FERRITIN Routine 05/14/2024 4:05 PM [facility] MRSA DNA PCR STAT 05/14/2024 2:47 PM [facility] BLOOD GASES PAT + COOX PANEL Routine 05/14/2024 2:46 PM [facility] GLUCOSE - POINT OF CARE Routine 05/14/20 12:48 PM [facility] XR CHEST 1VW PORTABLE Routine 05/14/2024 10:35 AM [facility] Dyspnea, unspecified type GLUCOSE - POINT OF CARE Routine 05/14/20 7:07 AM [facility] BILIRUBIN DIRECT Routine 05/14/2024 6:23 AM [facility] PHOSPHORUS BLOOD AM Draw 05/14/2024 6:23 AM [facility] MAGNESIUM BLOOD AM Draw 05/14/2024 6:23 AM [facility] COMPREHENSIVE METABOLIC PANEL AM Draw 05/14/2024 6:23 AM AN[facility] CBC W AUTO DIFFERENTIAL AM Draw 05/14/20 6:23 AM [facility] GLUCOSE - POINT OF CARE Routine 05/13/20 6:24 PM [facility]EN GLUCOSE - POINT OF CARE Routine 05/13/20 12:13 PM [facility] MAGNESIUM BLOOD AM Draw 05/13/2024 7:54 AM [facility] COMPREHENSIVE METABOLIC PANEL AM Draw 05/13/2024 7:54 AM AN[facility] EKG 12-LEAD STAT 05/13/2024 6:43 AM [facility] Decompensated cirrhosis (HCC) GLUCOSE - POINT OF CARE Routine 05/13/20 6:24 AM [facility] PHOSPHORUS BLOOD AM Draw 05/13/2024 4:20 AM ANIMAL [facility] CBC W AUTO DIFFERENTIAL AM Draw 05/13/20 4:20 AM AN[facility]EN GLUCOSE - POINT OF CARE Routine 05/12/20 11:45 PM AN[facility]EN GLUCOSE - POINT OF CARE Routine 05/12/20 6:20 PM [facility] XR ABDOMEN KUB PORTABLE STAT 05/12/20 6:00 PM [facility] Decompensated cirrhosis (HCC) XR CHEST 1VW PORTABLE STAT 05/12/2024 4:46 PM AN[facility]AL [facility]EN Decompensated cirrhosis (HCC) XR ABDOMEN KUB PORTABLE STAT 05/12/20 4:46 PM AN[facility]AL [facility]EN Decompensated cirrhosis (HCC) GLUCOSE - POINT OF CARE Routine 05/12/20 12:12 PM ANIMAL [facility]EN GLUCOSE - POINT OF CARE Routine 05/12/20 6:06 AM [facility] PHOSPHORUS BLOOD AM Draw 05/12/2024 6:02 AM AN[facility]EN MAGNESIUM BLOOD AM Draw 05/12/2024 6:02 AM [facility] COMPREHENSIVE METABOLIC PANEL AM Draw 05/12/2024 6:02 AM [facility] CBC W AUTO DIFFERENTIAL AM Draw 05/12/20 6:02 AM [facility] BLOOD GASES ART + COOX PANEL Routine 05/12/2024 6:02 AM [facility]EN GLUCOSE - POINT OF CARE Routine 05/12/20 12:11 AM [facility] PT EVAL AND TREAT Routine 05/11/2024 7:4 9 PM [facility] OT EVAL AND TREAT Routine 05/11/2024 7:4 9 PM [facility] CULTURE SPUTUM+GRAM STAIN Routine 2023 1:48 PM [facility] PHOSPHORUS BLOOD AM Draw 05/11/2024 4:44 AM [facility] MAGNESIUM BLOOD AM Draw 05/11/2024 4:44 AM [facility] COMPREHENSIVE METABOLIC PANEL AM Draw 05/11/2024 4:44 AM AN[facility]AL [facility] CBC W AUTO DIFFERENTIAL AM Draw 05/11/20 4:44 AM AN[facility]AL [facility]EN GLUCOSE - POINT OF CARE Routine 05/11/20 4:43 AM AN[facility]AL [facility] GLUCOSE - POINT OF CARE Routine 05/11/20 1:13 AM [facility] XR CHEST 1VW PORTABLE STAT 05/10/2024 10:54 AM AN[facility] Pleural effusion CBC W AUTO DIFFERENTIAL AM Draw 05/10/20 5:14 AM AN[facility] GLUCOSE - POINT OF CARE Routine 05/10/20 5:13 AM AN[facility] PHOSPHORUS BLOOD AM Draw 05/10/2024 3:21 AM AN[facility]AL [facility]EN MAGNESIUM BLOOD AM Draw 05/10/2024 3:21 AM [facility] COMPREHENSIVE METABOLIC PANEL AM Draw 05/10/2024 3:21 AM AN[facility] GLUCOSE - POINT OF CARE Routine 05/09/20 11:34 PM AN[facility]EN GLUCOSE - POINT OF CARE Routine 05/09/20 5:23 PM [facility] PT EVAL AND TREAT Routine 05/09/2024 3:1 2 PM AN[facility] OT EVAL AND TREAT Routine 05/09/2024 3:1 2 PM [facility]EN GLUCOSE - POINT OF CARE Routine 05/09/20 1:20 PM [facility] PHOSPHORUS BLOOD AM Draw 05/09/2024 5:20 AM [facility]EN MAGNESIUM BLOOD AM Draw 05/09/2024 5:20 AM [facility] COMPREHENSIVE METABOLIC PANEL AM Draw 05/09/2024 5:20 AM AN[facility] CBC W AUTO DIFFERENTIAL AM Draw 05/09/20 5:20 AM AN[facility]EN GLUCOSE - POINT OF CARE Routine 05/09/20 5:19 AM [facility] GLUCOSE - POINT OF CARE Routine 05/09/20 12:00 AM AN[facility] GLUCOSE - POINT OF CARE Routine 05/08/20 6:17 PM AN[facility]EN GLUCOSE - POINT OF CARE Routine 05/08/20 12:24 PM AN[facility]EN GLUCOSE - POINT OF CARE Routine 05/08/20 6:47 AM [facility] PHOSPHORUS BLOOD AM Draw 05/08/2024 3:35 AM [facility] MAGNESIUM BLOOD AM Draw 05/08/2024 3:35 AM [facility] COMPREHENSIVE METABOLIC PANEL AM Draw 05/08/2024 3:35 AM AN[facility] CBC W AUTO DIFFERENTIAL AM Draw 05/08/20 3:35 AM AN[facility]EN GLUCOSE - POINT OF CARE Routine 05/08/20 12:08 AM AN[facility]EN GLUCOSE - POINT OF CARE Routine 05/07/20 5:43 PM ANIMAL [facility]EN GLUCOSE - POINT OF CARE Routine 05/07/20 12:18 PM ANIMAL [facility]EN GLUCOSE - POINT OF CARE Routine 05/07/20 6:11 AM [facility] PHOSPHORUS BLOOD AM Draw 05/07/2024 4:25 AM AN[facility] MAGNESIUM BLOOD AM Draw 05/07/2024 4:25 AM [facility] COMPREHENSIVE METABOLIC PANEL AM Draw 05/07/2024 4:25 AM AN[facility] CBC W AUTO DIFFERENTIAL AM Draw 05/07/20 4:25 AM AN[facility]ARDEN GLUCOSE - POINT OF CARE Routine 05/07/20 12:18 AM AN[facility]EN GLUCOSE - POINT OF CARE Routine 05/06/20 5:27 PM AN[facility]AL [facility]ARDEN GLUCOSE - POINT OF CARE Routine 05/06/20 11:43 AM AN[facility]EN GLUCOSE - POINT OF CARE Routine 05/06/20 5:43 AM AN[facility]EN GLUCOSE - POINT OF CARE Routine 05/06/20 12:01 AM [facility] DIFFERENTIAL MANUAL AM Draw 05/06/2024 1 2:01 AM [facility] PHOSPHORUS BLOOD AM Draw 05/06/2024 12:0 1 AM AN[facility]EN MAGNESIUM BLOOD AM Draw 05/06/2024 12:01 AM [facility] COMPREHENSIVE METABOLIC PANEL AM Draw 05/06/2024 12:01 AM AN[facility]AL [facility]ARDEN CBC W AUTO DIFFERENTIAL AM Draw 05/06/20 12:01 AM ANIMAL [facility]ARDEN GLUCOSE - POINT OF CARE Routine 05/05/20 5:54 PM ANIMAL WARDEN GLUCOSE - POINT OF CARE Routine 05/05/20 11:47 AM AN[facility]AL [facility]ARDEN GLUCOSE - POINT OF CARE Routine 05/05/20 5:48 AM AN[facility] DIFFERENTIAL MANUAL AM Draw 05/05/2024 1 2:43 AM ANIMAL [facility]ARDEN TRIGLYCERIDES BLOOD AM Draw 05/05/2024 1 2:43 AM ANIMAL [facility]ARDEN PHOSPHORUS BLOOD AM Draw 05/05/2024 12:4 3 AM AN[facility]ARDEN MAGNESIUM BLOOD AM Draw 05/05/2024 12:43 AM [facility] COMPREHENSIVE METABOLIC PANEL AM Draw 05/05/2024 12:43 AM AN[facility]ARD[facility] CBC W AUTO DIFFERENTIAL AM Draw 05/05/20 12:43 AM AN[facility] GLUCOSE - POINT OF CARE Routine 05/04/20 11:13 PM AN[facility] GLUCOSE - POINT OF CARE Routine 05/04/20 6:15 PM [facility] US ABDOMEN LTD W COMP DOPPLER Routine 05/04/2024 4:11 PM [facility]EN Decompensated cirrhosis (HCC) GLUCOSE - POINT OF CARE Routine 05/04/20 11:56 AM AN[facility]EN GLUCOSE - POINT OF CARE Routine 05/04/20 5:40 AM [facility] BLOOD GASES ART + COOX PANEL Timed 05/04/2024 1:10 AM AN[facility]ARDEN GLUCOSE - POINT OF CARE Routine 05/04/20 12:25 AM [facility] DIFFERENTIAL MANUAL AM Draw 05/04/2024 1 2:25 AM AN[facility]ARD[facility] PHOSPHORUS BLOOD AM Draw 05/04/2024 12:2 5 AM AN[facility]ARDEN MAGNESIUM BLOOD AM Draw 05/04/2024 12:25 AM [facility] COMPREHENSIVE METABOLIC PANEL AM Draw 05/04/2024 12:25 AM AN[facility]ARD[facility] CBC W AUTO DIFFERENTIAL AM Draw 05/04/20 12:25 AM [facility] IRON + TRANSFERRIN PANEL Routine 024 6:45 PM AN[facility]EN GLUCOSE - POINT OF CARE Routine 05/03/20 5:48 PM [facility]ARDEN CULTURE SPUTUM+GRAM STAIN Routine 2023 4:15 PM [facility] URINE MICROSCOPIC ONLY REFLEX TO CULTURE Routine 05/03/2024 2:49 PM [facility] URINALYSIS REFLEX MICROSCOPIC REFLEX CULTURE Routine 05/03/2024 2:49 PM [facility]ARDEN CULTURE URINE Routine 05/03/2024 2:49 PM AN[facility] STREP PNEUMONIAE ANTIGEN URINE Routine 05/03/2024 2:49 PM [facility]ARDEN LEGIONELLA ANTIGEN URINE Routine 024 2:49 PM [facility] ECHO COMPLETE W CONTRAST W BUBBLE STUDY Routine 05/03/2024 2:00 PM [facility]ARDEN Dyspnea, unspecified type GLUCOSE - POINT OF CARE Routine 05/03/20 24 1:05 PM [facility] LACTIC ACID BLOOD Routine 05/03/2024 12: 24 PM [facility] CULTURE BLOOD Timed 05/03/2024 12:24 PM [facility] CULTURE BLOOD Timed 05/03/2024 12:22 PM AN[facility]ARDEN GLUCOSE - POINT OF CARE Routine 05/03/20 9:49 AM [facility] BLOOD GASES ART + COOX PANEL Routine 05/03/2024 5:31 AM ANIMAL [facility]ARD[facility] GLUCOSE - POINT OF CARE Routine 05/03/20 5:26 AM [facility] LACTIC ACID BLOOD Routine 05/03/2024 3:2 6 AM [facility] GLUCOSE - POINT OF CARE Routine 05/03/20 1:06 AM [facility] BLOOD GASES ART + COOX PANEL Routine 05/03/2024 12:58 AM [facility] HEMOGLOBIN A1C Routine 05/03/2024 12:58 AM [facility] PHOSPHORUS BLOOD AM Draw 05/03/2024 12:5 8 AM [facility] MAGNESIUM BLOOD AM Draw 05/03/2024 12:58 AM [facility] COMPREHENSIVE METABOLIC PANEL AM Draw 05/03/2024 12:58 AM [facility] CBC W AUTO DIFFERENTIAL AM Draw 05/03/20 12:58 AM [facility] HIV-1 HIV-2 ANTIBODY + HIV P24 AG PANEL Routine 05/03/2024 12:58 AM [facility] VITAMIN B12 Routine 05/03/2024 12:58 AM [facility] RESPIRATORY PANEL WITH SARS-COV-2 BY PCR (STL) Routine 05/02/2024 10:30 PM [facility] CULTURE MRSA Routine 05/02/2024 10:30 PM [facility] VANCOMYCIN LEVEL RANDOM STAT 05/02/20 10:21 PM [facility] SYPHILIS ANTIBODY CASCADING REFLEX Timed 05/02/2024 10:21 PM [facility] XR CHEST 1VW PORTABLE STAT 05/02/2024 9:29 PM [facility] Decompensated cirrhosis (HCC) XR ABDOMEN KUB PORTABLE STAT 05/02/20 9:28 PM [facility] Decompensated cirrhosis (HCC) TSH Routine 05/02/2024 9:14 PM [facility] SMOOTH MUSCLE ANTIBODY W REFLEX TITER STAT 05/02/2024 9:14 PM [facility] MITOCHONDRIAL ANTIBODY SCREEN STAT 05/02/2024 9:14 PM [facility] CERULOPLASMIN STAT 05/02/2024 9:14 PM [facility] AMMONIA STAT 05/02/2024 9:14 PM [facility] LACTIC ACID BLOOD STAT 05/02/2024 9:1 4 PM [facility] B-TYPE NATRIURETIC PEPTIDE STAT 05/02 9:14 PM [facility] PHOSPHATIDYLETHANOL (PETH) Routine 05/02 9:14 PM [facility] PTT [facility] STAT 05/02/2024 9:14 PM [facility] PT-INR [facility] STAT 05/02/2024 9:14 PM [facility] BLOOD GASES ART + COOX PANEL STAT 05/02/2024 9:14 PM [facility] MAGNESIUM BLOOD STAT 05/02/2024 9:14 PM [facility] PHOSPHORUS BLOOD STAT 05/02/2024 9:14 PM [facility] CBC W AUTO DIFFERENTIAL STAT 05/02/20 9:14 PM [facility] COMPREHENSIVE METABOLIC PANEL STAT 05/02/2024 9:14 PM [facility] LACTIC ACID BLOOD STAT 05/02/2024 9:1 4 PM [facility] from Last 3 Months Results * (ABNORMAL) PT-INR [facility] (06/05/2024 8:08 AM [facility]) Only the most recent of22 resultswithin the time period is included. PT 16.9(H) 12.1 - 14.8 Seconds 06/05/2024 9:15 AM [facility] INR 1.4 See Comment 06/05/2024 9:15 AM [facility] Comment:The suggested therap eutic range for standard coumadin (warfarin) therapy is an INR of 2.0-3.0. For high-risk patients (Mechanical Mitral Valve Prosthesis, etc.), the suggested prophylactic therapeutic range is an INR of 2.5-3.5. Blood BLOOD SPECIMEN / Unknown Lab Venipuncture / Unknown 06/05/2024 8:08 AM [facility] 06/05/2024 8:45 AM [facility] Neal Grossman MD LAB - COAGULATION OR DERABLES [facility] [address] [place] [address], [place] [phone] * (ABNORMAL) COMPREHENSIVE METABOLIC PANEL (06/05/2024 8:08 AM [facility]) Only the most recent of35 resultswithin the time period is included. BUN 8 7 - 26 mg/dL 06/05/2024 9:15 AM [facility] Creatinine 0.56 0.56 - 0.96 mg/dL 06/05/2024 9:15 AM [facility] Sodium 136 136 - 145 mmol/L 06/05/2024 9:15 AM [facility] Potassium 3.7 3.5 - 4.5 mmol/L 06/05/2024 9:15 AM [facility] Chloride 108(H) 98 - 107 mmol/L 06/05/2024 9:15 AM [facility] CO2 20(L) 22 - 29 mmol/L 06/05/2024 9:15 AM [facility] Glucose 132(H) 70 - 99 mg/dL 06/05/2024 9:15 AM [facility] Calcium 8.3(L) 8.4 - 10.2 mg/dL 06/05/2024 9:15 AM [facility] Protein Total 6.2 6.0 - 8.3 g/dL 06/05/2024 9:15 AM [facility] [facility] Albumin 2.5(L) 3.4 - 5.0 g/dL 06/05/2024 9:15 AM [facility] Bilirubin Total 2.3(H) 0.2 - 1.2 mg/dL 06/05/2024 9:15 AM [facility] Alkaline Phosphatase 133 40 - 150 U/L 06/05/2024 9:15 AM [facility] ALT 30 5 - 55 U/L 06/05/2024 9:15 AM [facility] AST 38(H) 5 - 34 U/L 06/05/2024 9:15 AM [facility] Anion Gap 8 6 - 16 06/05/2024 9:15 AM [facility] BUN/Creatinine Ratio 14 7 - 23 06/05/2024 9:15 AM [facility] Osmolality Calculated 282 275 - 295 mOsm/kg 06/05/2024 9:15 AM [facility] Albumin/Globulin Ratio 0.7(L) 1.1 - 2.3 06/05/2024 9:15 AM [facility] eGFR by CKD-EPI >90 >=90 mL/min/1.7 3 m2 06/05/2024 9:15 AM [facility] Blood BLOOD SPECIMEN / Unknown Lab Venipuncture / Unknown 06/05/2024 8:08 AM [facility] 06/05/2024 8:46 AM [facility] Neal Grossman MD LAB - CHEMISTRY NADIA VALENTE Performing Organization Address [facility] Co de Phone Number [address] [address], [place] [phone] * PHOSPHORUS BLOOD (06/05/2024 8:08 AM [facility]) Only the most recent of34 resultswithin the time period is included. Phosphorus 3.3 2.9 - 5.1 mg/dL 06/05/2024 9:15 AM [facility] Blood BLOOD SPECIMEN / Unknown Lab Venipuncture / Unknown 06/05/2024 8:08 AM [facility] 06/05/2024 8:46 AM [facility] Neal Grossman MD LAB - CHEMISTRY NADIA VALENTE Performing Organization Address [facility] de Phone Number [address] [address], [place] [phone] * (ABNORMAL) MAGNESIUM BLOOD (06/05/2024 8:08 AM [facility]) Only the most recent of34 resultswithin the time period is included. Magnesium 1.5(L) 1.6 - 2.6 mg/dL 06/05/2024 9:15 AM [facility] Blood BLOOD SPECIMEN / Unknown Lab Venipuncture / Unknown 06/05/2024 8:08 AM [facility] 06/05/2024 8:46 AM [facility] Neal Grossman MD LAB - CHEMISTRY NADIA VALENTE Performing Organization Address [facility] Co de Phone Number [address] [address], [place] [phone] * (ABNORMAL) CBC W AUTO DIFFERENTIAL (05/31/2024 7:04 PM [facility]) Only the most recent of30 resultswithin the time period is included. WBC 5.5 4.0 - 10.7 x10E9/L 05/31/2024 7:45 PM [facility] RBC Count 3.51(L) 3.90 - 5.20 x10E12/L 05/31/2024 7:45 PM [facility] Hemoglobin 11.7(L) 11.9 - 15.8 g/dL 05/31/2024 7:45 PM [facility] Hematocrit 33.9(L) 34.8 - 46.1 % 05/31/2024 7:45 PM [facility] MCV 96.6 80.0 - 98.0 fL 05/31/2024 7:45 PM [facility] MCH 33.3 26.7 - 33.6 pg 05/31/2024 7:45 PM [facility] MCHC 34.5 31.7 - 36.3 g/dL 05/31/2024 7:45 PM [facility] RDW-CV 16.4(H) 11.3 - 14.8 % 05/31/2024 7:45 PM [facility] Platelet Count 149(L) 150 - 420 x10E9/L 05/31/2024 7:45 PM [facility] MPV 10.8 7.8 - 11.4 fL 05/31/2024 7:45 PM [facility] Neutrophil % 55.1 41.0 - 74.0 % 05/31/2024 7:45 PM [facility] Lymphocyte % 25.1 17.0 - 47.0 % 05/31/2024 7:45 PM [facility] Monocyte % 13.9(H) 3.0 - 11.0 % 05/31/2024 7:45 PM [facility] Eosinophil % 4.5 0.0 - 7.0 % 05/31/2024 7:45 PM [facility] Basophil % 0.7 0.0 - 1.6 % 05/31/2024 7:45 PM [facility] Immature Granulocytes % 0.7 0.0 - 1.0 % 05/31/2024 7:45 PM [facility] Neutrophil Absolute 3.04 1.60 - 7.50 x10E9/L 05/31/2024 7:45 PM [facility] Lymphocyte Absolute 1.39 1.00 - 4.40 x10E9/L 05/31/2024 7:45 PM [facility] Monocyte Absolute 0.77 0.15 - 1.00 x10E9/L 05/31/2024 7:45 PM [facility] Eosinophil Absolute 0.25 0.00 - 0.60 x10E9/L 05/31/2024 7:45 PM [facility] Basophil Absolute 0.04 0.00 - 0.13 x10E9/L 05/31/2024 7:45 PM [facility] Blood BLOOD SPECIMEN / Unknown Lab Venipuncture / Unknown 05/31/2024 7:04 PM [facility] 05/31/2024 7:31 PM [facility] Neal Grossman MD LAB - HEMATOLOGY ORD ERABLES Performing Organization Address City/[facility]/ZIP Co de Phone Number [address] [address], [place] [phone] * (ABNORMAL) GLUCOSE - POINT OF CARE (05/23/2024 10:19 PM [facility]) Only the most recent of70 resultswithin the time period is included. Glucose WB/POC 119(H) 70 - 99 mg/dL 05/24/2024 5:39 AM [facility] Specimen Type Cap Fingerstick 2024 5:39 AM [facility] Blood BLOOD SPECIMEN / Unknown 05/23/2024 10:19 PM [facility] 05/24/2024 5:39 AM [facility] Mitchel De MD LAB - POINT OF CARE ORDERABLES Performing Organization Address City/[facility]/ZIP Co de Phone Number [address] [address], [place] [phone] * PROCALCITONIN LEVEL (05/23/2024 3:06 PM [facility]) Only the most recent of2 resultswithin the time period is included. PROCALCITONIN 0.03 <=0.10 ng/mL 05/23/2024 4:21 PM [facility] Blood BLOOD SPECIMEN / Unknown Lab Venipuncture / Unknown 05/23/2024 3:06 PM [facility] 05/23/2024 3:17 PM [facility] Narrative [facility] - 05/23/2024 4:21 PM [facility] The change in procalcitonin (PCT) concentration over [...] Change in Procalcitonin Calculator is available at [email or web address] If clinical picture has not improved and PCT remains high, reevaluate and consider treatment failure or other causes. Mitchel De MD LAB - CHEMISTRY NADIA VALENTE [facility] Organization Address City/State/ZIP Co de Phone Number [address] [address], [place] [phone] * SYPHILIS ANTIBODY CASCADING REFLEX (05/23/2024 3:06 PM [facility]) Only the most recent of2 resultswithin the time period is included. Treponema pallidum Antibody Non-react grady Non-react grady 05/23/2024 3:59 PM [facility] Comment: No Laboratory evidence of syphilis infection. Note: Circulating antibodies may be low or undetectable in early infection. If recent exposure is suspected, re-draw sample in 2-4 weeks and repeat testing. Blood BLOOD SPECIMEN / Unknown Lab Venipuncture / Unknown 05/23/2024 3:06 PM [facility] 05/23/2024 3:17 PM [facility] Mitchel De MD LAB - SEROLOGY ORDER GERALDO [facility] [address] [place] [address], [place] [phone] * (ABNORMAL) URINALYSIS REFLEX TO MICROSCOPIC NO CULTURE (05/23/2024 11:05 AM [facility]) Color UA Price(A) Straw, Yellow 05/23/2024 3:42 PM [facility] Clarity UA Slt Cloudy(A) Clear 05/23/2024 3:42 PM [facility] Specific [place] UA 1.024 1.005 - 1.030 05/23/2024 3:42 PM [facility] Comment: Specific gravity results confirmed by refractometer. This is a corrected result. Previous result was >=1.030 on 05/23/2024 at 1129 [facility] pH UA 5.5 5.0 - 8.0 pH 05/23/2024 3:42 PM [facility] Protein UA Negative Negative 05/23/2024 3:42 PM [facility] Glucose UA Negative Negative 05/23/2024 3:42 PM [facility] Ketone UA Trace(A) Negative 05/23/2024 3:42 PM [facility] Bilirubin UA 1+(A) Negative 05/23/2024 3:42 PM [facility] Comment:Urine Bilirubin resu lt confirmed by manual Ictotest. Blood UA Negative Negative 05/23/2024 3:42 PM [facility] Nitrite UA Positive(A) Negative 05/23/2024 3:42 PM [facility] Leukocyte Esterase Negative Negative 05/23/2024 3:42 PM [facility] Urobilinogen UA Negative Negative mg/dL 05/23/2024 3:42 PM [facility] RBC UA 6-10(A) None Seen, 0-2, 3-5 /HPF 05/23/2024 3:42 PM [facility] WBC UA 11-20(A) None Seen, 0-5 /HPF 05/23/2024 3:42 PM [facility] Bacteria UA 1+(A) None /HPF 05/23/2024 3:42 PM [facility] Yeast Budding UA Moderate(A) None /HPF 025 3:42 PM [facility] Squamous Epithelial Cells UA 3-5 None Seen, 0-2, 3-5 /HPF 05/23/2024 3:42 PM [facility] Mucus UA 4+ /LPF 05/23/2024 3:42 PM [facility] Hyaline Casts UA 3-5(A) None Seen, 0-2 /LPF 05/23/2024 3:42 PM [facility] Urine URINE SPECIMEN OBTAINED BY CLEAN CATCH PROCEDURE / Unknown Collection / Unknown 05/23/2024 11:05 AM [facility] 05/23/2024 11:08 AM [facility] Narrative [facility] - 05/23/2024 3:42 PM [facility] Mitchel De MD LAB - URINALYSIS ORD ERABLES Performing Organization Address City/[facility]/ZIP Co de Phone Number [address] [address], [place] [phone] * (ABNORMAL) VITAMIN B12 (05/23/2024 6:20 AM [facility]) Only the most recent of2 resultswithin the time period is included. Vitamin B12 >2,000(H) 213 - 816 pg/mL 05/23/2024 10:40 AM [facility] Blood BLOOD SPECIMEN / Unknown Venipuncture / Unknown 05/23/2024 6:20 AM [facility] 05/23/2024 6:45 AM [facility] Mitchel De MD LAB - CHEMISTRY ORDE RABJEREL [address] [address], [place] [phone] * CT Head Wo Contrast (05/19/2024 10:03 AM [facility]) Anatomical Region Laterality Modality Head Computed Tomogra phy 05/19/2024 10:2 7 AM [facility] Impressions 05/19/2024 10:31 AM [facility] IMPRESSION: 1. No acute intracranial process. 2. Chronic small vessel ischemic disease of the brain with cerebral volume loss. > Interpreting Provider: Albert Xiong MD on 05/19/2024 10:31 AM Narrative 05/19/2024 10:31 AM [facility] PROCEDURE: CT HEAD WO CONTRAST, DATE/TIME OF EXAM: 05/19/2024 10:05 AM, LOCATION [facility] INDICATION: G93.40: Encephalopathy, unspecified type ADDITIONAL CLINICAL [...] DATE/TIME OF EXAM: 05/19/2024 10:05 AM, LOCATION [facility] INDICATION: G93.40: Encephalopathy, unspecified type ADDITIONAL CLINICAL [...] (ABNORMAL) HGB HCT PANEL (05/18/2024 12:26 PM [facility]) Hemoglobin 16.6(H) 11.9 - 15.8 g/dL 05/18/2024 12:52 PM [facility] Hematocrit 50.3(H) 34.8 - 46.1 % 05/18/2024 12:52 PM [facility] Blood BLOOD SPECIMEN / Unknown Lab Venipuncture / Unknown 05/18/2024 12:26 PM [facility] 05/18/2024 12:48 PM [facility] Mitchel De MD LAB - HEMATOLOGY ORD ERABLES [address] [address], [place] [phone] * CK BLOOD (05/18/2024 12:26 PM [facility]) CK Total 30 30 - 200 U/L 05/18/2024 1:21 PM [facility] Blood BLOOD SPECIMEN / Unknown Lab Venipuncture / Unknown 05/18/2024 12:26 PM [facility] 05/18/2024 12:53 PM [facility] Mitchel De MD LAB - CHEMISTRY ORDE RABJEREL [address] [address], [place] [phone] * XR Abdomen Kub Portable (05/18/2024 10:38 AM [facility]) Only the most recent of4 resultswithin the time period is included. Anatomical Region Laterality Modality Abdomen Digital Radiogra phy 05/18/2024 11:5 5 AM [facility] Narrative 05/18/2024 5:41 PM [facility] PROCEDURE: XR ABDOMEN KUB PORTABLE DATE/TIME OF EXAM: 05/18/2024 10:39 AM Indication: R63.8: Alteration in nutrition associated with tube feeding Additional History: COMPARISON: Abdominal x-ray 05/12/2024 FINDINGS/IMPRESSION: Weighted tip feeding tube courses below the diaphragm and terminates in the gastric fundus, mildly retracted compared to prior abdominal x-ray. Report dictated by Milad Perales MD (radiology transcriptionist). Mckenna Aly MD have personally reviewed and [...] x-ray. Report dictated by Milad Perales MD (radiology transcriptionist). Mckenna Aly MD have personally reviewed and interpreted this examination/study. > Interpreting Provider: Mckenna Alva MD on 05/18/2024 5:41 PM Mitchel De MD DIAGNOSTIC IMAGING O RDERABLES * XR Chest 1Vw Portable (05/18/2024 4:33 AM [facility]) Only the most recent of6 resultswithin the time period is included. Anatomical Region Laterality Modality Chest Digital Radiogra phy 05/18/2024 1:20 PM [facility] Narrative 05/19/2024 12:31 AM [facility] PROCEDURE: XR CHEST 1VW PORTABLE, DATE/TIME OF EXAM: 05/18/2024 4:33 AM, LOCATION [facility] INDICATION: J96.01: Acute respiratory failure with hypoxia [...] silhouette is normal. > Dictated by ROHITH Adna (radiology transcriptionist). Celestine Aly MD have personally reviewed and interpreted this examination/study. > Interpreting Provider: Celestine Ro MD on 05/19/2024 12:31 AM Procedure Note Celestine Ro MD - 05/19/2024 PROCEDURE: XR CHEST 1VW PORTABLE, DATE/TIME OF EXAM: 05/18/2024 4:33 AM, LOCATION [facility] INDICATION: J96.01: Acute respiratory failure with hypoxia [...] is normal. > Dictated by ROHITH Adan (radiology transcriptionist). Celestine Aly MD have personally reviewed and interpreted this examination/study. > Interpreting Provider: Celestine Ro MD on 05/19/2024 12:31 AM Mitchel De MD DIAGNOSTIC IMAGING O RDERABLES * EKG 12-LEAD (05/16/2024 5:03 PM [facility]) Only the most recent of2 resultswithin the time period is included. [facility] Ventricular Rate 92 BPM [facility] MUSE Atrial Rate 92 BPM [facility] MUSE P-R Interval 148 ms [facility] MUSE QRS Duration ms 78 ms [facility] MUSE Q-T Interval ms 392 ms [facility] MUSE QTC Calculation (Bezet) 484 ms [facility] MUSE Calculated P [place] 46 degrees [facility] MUSE Calculated R [place] 30 degrees [facility] MUSE Calculated T [place] 12 degrees [facility] MUSE Interpretation EKG NORMAL SINUS RHYTHM PROLONGED QT ABNORMAL ECG WHEN COMPARED WITH ECG OF 13-MAY-2024 06:43, NO SIGNIFICANT CHANGE WAS FOUND Confirmed by EMIL RIVERA MD ([id number]) on 05/18/2024 2:55:51 PM [facility] 05/16/2024 5:03 PM [facility] 05/18/2024 2:55 PM [facility] Nuha Segal MD ECG ORDERABLES Performing Organization Address City/[facility]/ZIP Co de Phone Number [facility] * AMMONIA (05/16/2024 4:41 PM [facility]) Only the most recent of2 resultswithin the time period is included. [facility] Ammonia 49 <=72 umol/L 05/16/2024 5:02 PM [facility] Blood BLOOD SPECIMEN / Unknown Venipuncture / Unknown 05/16/2024 4:41 PM [facility] 05/16/2024 5:02 PM [facility] Nuha Segal MD LAB - CHEMISTRY ORDChristos VALENTE [address] [address], [place] [phone] * (ABNORMAL) BLOOD GASES ART + COOX PANEL (05/16/2024 4:23 PM [facility]) Only the most recent of6 resultswithin the time period is included. [facility] pH Arterial 7.43 7.35 - 7.45 pH 05/16/2024 4:38 PM [facility] pO2 Arterial 133(H) 80 - 100 mmHg 05/16/2024 4:38 PM [facility] pCO2 Arterial 34(L) 35 - 45 mmHg 4:38 PM [facility] HCO3 Arterial 22.6 20.0 - 30.0 mmol/L 05/16/2024 4:38 PM [facility] BE Arterial -0.9 -2.0 - 2.0 mmol/L 05/16/2024 4:38 PM [facility] Oxyhemoglobin Arterial 96.9 % 05/16/2024 4:38 PM [facility] Dexoyhemoglobin (HHB) % <1.0 % 05/16/2024 4:38 PM [facility] Methemoglobin <0.8 0.0 - 2.0 % 05/16/2024 4:38 PM [facility] Carboxyhemoglobin 2.1(H) 0.0 - 2.0 % 2023 4:38 PM [facility] O2 Content Arterial 23.9 Interpret within clinical context ml/dL 05/16/2024 4:38 PM [facility] Hemoglobin by COOX 17.4(H) 12.0 - 15.6 g/dL 05/16/2024 4:38 PM [facility] O2 Saturation Arterial 100 90 - 100 % 05/16/2024 4:38 PM [facility] FI O2 Arterial 100.0 % 05/16/2024 4:38 PM [facility] Blood, arterial ARTERIAL BLOOD SPECIMEN / Unknown Arterial Puncture / Unknown 05/16/2024 4:23 PM [facility] 05/16/2024 4:28 PM [facility] - 05/16/2024 4:38 PM [facility] Carboxyhemoglobin Normal Concentration: Non-smokers: 0-2%; Smokers: 0-9%; Toxic: >20% Nuha Segal MD LAB - BLOOD GASES OR DERABLES [address] [address], [place] [phone] * (ABNORMAL) BASIC METABOLIC PANEL (CALCIUM TOTAL) (05/16/2024 4:12 PM [facility]) BUN 21 7 - 26 mg/dL 05/16/2024 5:16 PM [facility] Creatinine 0.70 0.56 - 0.96 mg/dL 05/16/2024 5:16 PM [facility] Sodium 148(H) 136 - 145 mmol/L 05/16/2024 5:16 PM [facility] Potassium 3.8 3.5 - 4.5 mmol/L 05/16/2024 5:16 PM [facility] Chloride 118(H) 98 - 107 mmol/L 05/16/2024 5:16 PM [facility] CO2 20(L) 22 - 29 mmol/L 05/16/2024 5:16 PM [facility] Glucose 148(H) 70 - 99 mg/dL 05/16/2024 5:16 PM [facility] Calcium 9.9 8.4 - 10.2 mg/dL 05/16/2024 5:16 PM [facility] Anion Gap 10 6 - 16 05/16/2024 5:16 PM [facility] BUN/Creatinine Ratio 30(H) 7 - 23 05/16/2024 5:16 PM [facility] Osmolality Calculated 312(H) 275 - 295 mOsm/kg 05/16/2024 5:16 PM [facility] eGFR by CKD-EPI >90 >=90 mL/min/1.7 3 m2 05/16/2024 5:16 PM [facility] Blood BLOOD SPECIMEN / Unknown Lab Venipuncture / Unknown 05/16/2024 4:12 PM [facility] 05/16/2024 4:30 PM [facility] Nuha Segal MD LAB - CHEMISTRY NADIA VALENTE [facility] Organization Address City/State/ZIP Co de Phone Number [facility] [address] [place] [address], [place] [phone] * PTT [facility] (05/16/2024 6:20 AM [facility]) Only the most recent of3 resultswithin the time period is included. APTT 34.8 23.0 - 38.4 Seconds 05/16/2024 6:59 AM [facility] Comment:Suggested therapeuti c range for full dose I.V. unfractionated heparin therapy for venous thromboembolism is 71 to 109 seconds. Blood BLOOD SPECIMEN / Unknown Lab Venipuncture / Unknown 05/16/2024 6:20 AM [facility] 05/16/2024 6:34 AM [facility] Hiren Matias MD LAB - COAGULATION OR DERABLES Performing Organization Address [facility] Co de Phone Number [address] [address], [place] [phone] * FERRITIN (05/14/2024 4:05 PM [facility]) Pathologist [facility] Ferritin 534 ng/mL 05/14/2024 5:13 PM [facility] Blood BLOOD SPECIMEN / Unknown Lab Venipuncture / Unknown 05/14/2024 4:05 PM [facility] 05/14/2024 4:11 PM [facility] Hiern Matias MD LAB - CHEMISTRY ORDE RABLES Performing Organization Address [facility] Co de Phone Number [address] [address], [place] [phone] * MRSA DNA PCR (05/14/2024 2:47 PM [facility]) [facility] MRSA DNA by PCR Not detected Not detected 05/14/2024 7:24 PM [facility] MICROBIOLOGY Microbiology SPECIMEN FROM NASAL FOSSAE / Unknown Collection / Unknown 05/14/2024 2:47 PM [facility] 05/14/2024 2:51 PM [facility] Narrative [facility]CROBIOLOG[facility] - 05/14/2024 7:24 PM [facility] Methicillin-resistant Staphylococcus aureus (MRSA) DNA is not detected (presumed not colonized with MRSA). Jun Allen MD LAB - MICROBIOLOGY O RDERABLES Performing Organization Address City/[facility] Co de Phone Number [facility] MICROBIOLOGY [address] [place] [address], [place] [phone] * (ABNORMAL) BLOOD GASES PAT + COOX PANEL (05/14/2024 2:46 PM [facility]) [facility] pH Venous 7.51(H) 7.32 - 7.42 pH 05/14/2024 2:56 PM [facility] pO2 Venous 53(H) 35 - 40 mmHg 05/14/2024 2:56 PM [facility] pCO2 Venous 29(L) 40 - 50 mmHg 05/14/2024 2:56 PM [facility] HCO3 Venous 23.1 20 - 30 mmol/L 05/14/2024 2:56 PM [facility] Base Excess Venous 1.2 -2.0 - 2.0 mmol/L 05/14/2024 2:56 PM [facility] Oxyhemoglobin Venous 81.8 % 04/18 2:56 PM [facility] Deoxyhemoglobin (HHB) Venous % 15.4 % 05/14/2024 2:56 PM [facility] Methemoglobin 1.1 0.0 - 2.0 % 05/14/2024 2:56 PM [facility] Carboxyhemoglobin 1.7 0.0 - 2.0 % 2023 2:56 PM [facility] O2 Content Venous 17.2 Interpret within clinical context ml/dL 05/14/2024 2:56 PM [facility] Hemoglobin by COOX 15.0 g/dL 2023 2:56 PM [facility] O2 Saturation Venous 84 >=70 % 04/18 2:56 PM [facility] FI O2 Mixed Venous 36.0 % 2023 2:56 PM [facility] Blood BLOOD SPECIMEN / Unknown Venipuncture / Unknown 05/14/2024 2:46 PM [facility] 05/14/2024 2:51 PM [facility] - 05/14/2024 2:56 PM [facility] Carboxyhemoglobin Normal Concentration: Non-smokers: 0-2%; Smokers: 0-9%; Toxic: >20% Nuha Segal MD LAB - BLOOD GASES OR DERABLES [facility] [address] [place] [id number], [place] [phone] * (ABNORMAL) BILIRUBIN DIRECT (05/14/2024 6:23 AM [facility]) Bilirubin Conjugated 1.4(H) 0.1 - 0.5 mg/dL 05/14/2024 7:16 AM [facility] Blood BLOOD SPECIMEN / Unknown Lab Venipuncture / Unknown 05/14/2024 6:23 AM [facility] 05/14/2024 6:42 AM [facility] Hiren Matias MD LAB - CHEMISTRY NADIA [facility] [address] [place] [address], [place] [phone] * CULTURE SPUTUM+GRAM STAIN (05/11/2024 1:48 PM [facility]) Only the most recent of2 resultswithin the time period is included. Pathologist [facility] Culture Rare normal oropharyngeal catarino SAURABH 05/13/2024 10:26 AM [facility]CRO[facility] Gram Stain Light Polymorphonuclear cells 05/13/2024 10:26 AM [facility] Gram Stain No organisms seen 024 10:26 AM [facility]CRO[facility] Microbiology SPUTUM / Unknown Collection / Unknown 05/11/2024 1:48 PM [facility] 05/11/2024 2:03 PM [facility] Hiren Matias MD LAB - MICROBIOLOGY O RDERABLES [facility] [address] [place] [address], [place] [phone] * (ABNORMAL) DIFFERENTIAL MANUAL (05/06/2024 12:01 AM [facility]) Only the most recent of3 resultswithin the time period is included. Neutrophil % 60 41 - 74 % 05/06/2024 2:01 AM [facility] Lymphocyte % 18 17 - 47 % 05/06/2024 2:01 AM [facility] Monocyte % 18(H) 3 - 11 % 05/06/2024 2:01 AM [facility] Eosinophil % 3 0 - 7 % 05/06/2024 2:01 AM [facility] Basophil % 1 0 - 2 % 05/06/2024 2:01 AM [facility] Neutrophil Absolute 4.86 1.60 - 7.50 x10E9/L 05/06/2024 2:01 AM [facility] Lymphocyte Absolute 1.46 1.00 - 4.40 x10E9/L 05/06/2024 2:01 AM [facility] Monocyte Absolute 1.46(H) 0.15 - 1.00 x10E9/L 05/06/2024 2:01 AM [facility] Eosinophil Absolute 0.24 0.00 - 0.60 x10E9/L 05/06/2024 2:01 AM [facility] Basophil Absolute 0.08 0.00 - 0.13 x10E9/L 05/06/2024 2:01 AM [facility] RBC Morphology REVIEWED 05/06/2024 2:01 AM [facility] Macrocytosis MODERATE(A) (none) 05/06/2024 2:01 AM [facility] Polychromatic Cells MODERATE(A) (none) 05/06/2024 2:01 AM [facility] Schistocytes FEW(A) (none) 05/06/2024 2:01 AM [facility] Blood BLOOD SPECIMEN / Unknown Venipuncture / Unknown 05/06/2024 12:01 AM [facility] 05/06/2024 12:39 AM [facility] Jun Allen MD LAB - HEMATOLOGY ORD ERABLES Performing Organization Address City/State/[facility] Co de Phone Number [facility] [address] [place] [address], [place] [phone] * TRIGLYCERIDES BLOOD (05/05/2024 12:43 AM [facility]) Triglycerides 102 <150 mg/dL 05/05/2024 1:20 AM [facility] Comment: ATP III Classification of Triglycerides: <150 mg/dL: Normal 150 - 199 mg/dL: Borderline High 200 - 400 mg/dL: High >500 mg/dL: Very High Blood BLOOD SPECIMEN / Unknown Venipuncture / Unknown 05/05/2024 12:43 AM [facility] 05/05/2024 12:52 AM [facility] Jun Allen MD LAB - CHEMISTRY NADIA [facility] Organization Address City/State/ZIP Co de Phone Number [facility] [address] [place] [address], [place] [phone] * US Abdomen Ltd W Comp Doppler (05/04/2024 4:11 PM [facility]) Anatomical Region Laterality Modality Abdomen Ultrasound 05/04/2024 3:57 PM [facility] Impressions 05/04/2024 5:16 PM [facility] IMPRESSION: 1.Hepatic cirrhosis without discrete hepatic lesion. [...] evaluation. > Dictated by Calvin Schroeder MD (radiology transcriptionist). I, Darryl Ayala MD have personally reviewed and interpreted this examination/study. > Interpreting Provider: Darryl Ayala MD on 05/04/2024 5:16 PM Narrative 05/04/2024 5:16 PM [facility] PROCEDURE: US ABDOMEN LTD W COMP DOPPLER, DATE/TIME OF EXAM: 05/04/2024 2:45 PM, LOCATION [facility] INDICATION: K72.90: Decompensated cirrhosis (HCC) K74.60: Decompensated [...] DOPPLER, DATE/TIME OF EXAM:05/04/2024 2:45 PM, LOCATION [facility] INDICATION: K72.90: Decompensated cirrhosis (HCC) K74.60: Decompensated [...] evaluation. > Dictated by Calvin Schroeder MD (radiology transcriptionist). I, Darryl Ayala MD have personally reviewed and interpreted this examination/study. > Interpreting Provider: Darryl Ayala MD on 05/04/2024 5:16 PM Osmani Myers MD US ORDERABLES * (ABNORMAL) IRON + TRANSFERRIN PANEL (05/03/2024 6:45 PM [facility]) Iron 292 ug/dL 05/03/2024 11:55 PM [facility] Transferrin 97(L) 174 - 382 mg/dL 05/03/2024 11:55 PM [facility] Transferrin Saturation % 100(H) 16 - 50 % 05/03/2024 11:55 PM [facility] TIBC Calculated 121 ug/dL 11:55 PM [facility] Blood BLOOD SPECIMEN / Unknown Venipuncture / Unknown 05/03/2024 6:45 PM [facility] 05/03/2024 6:47 PM [facility] Osmani Myers MD LAB - CHEMISTRY NADIA [facility] Organization Address City/State/ZIP Co de Phone Number [facility] [address] [place] [address], [place] [phone] * (ABNORMAL) URINE MICROSCOPIC ONLY REFLEX TO CULTURE (05/03/2024 2:49 PM [facility]) Reflex Status Culture to follow 05/03/2024 3:26 PM [facility] RBC UA 51-100(A) None Seen, 0-2, 3-5 /HPF 05/03/2024 3:26 PM [facility] WBC UA 21-50(A) None Seen, 0-5 /HPF 05/03/2024 3:26 PM [facility] Squamous Epithelial Cells UA 0-2 None Seen, 0-2, 3-5 /HPF 05/03/2024 3:26 PM [facility] Mucus UA 2+ /LPF 05/03/2024 3:26 PM [facility] Hyaline Casts UA 11-20(A) None Seen, 0-2 /LPF 05/03/2024 3:26 PM [facility] Urine URINE SPECIMEN OBTAINED BY CLEAN CATCH PROCEDURE / Unknown Collection / Unknown 05/03/2024 2:49 PM [facility] 05/03/2024 2:54 PM [facility] - 05/03/2024 3:26 PM [facility] Jun Allen MD LAB - URINALYSIS ORD ERABLES [facility] [address] [place] [address], [place] [phone] * (ABNORMAL) URINALYSIS REFLEX MICROSCOPIC REFLEX CULTURE (05/03/2024 2:49 PM [facility]) Color UA Yellow Straw, Yellow 05/03/2024 3:23 PM [facility] Clarity UA Slt Cloudy(A) Clear 05/03/2024 3:23 PM [facility] Specific [place] UA 1.011 1.005 - 1.030 05/03/2024 3:23 PM [facility] pH UA 5.0 5.0 - 8.0 pH 05/03/2024 3:23 PM [facility] Protein UA Negative Negative 05/03/2024 3:23 PM [facility] Glucose UA Negative Negative 05/03/2024 3:23 PM [facility] Ketone UA Negative Negative 05/03/2024 3:23 PM [facility] Bilirubin UA Negative Negative 05/03/2024 3:23 PM [facility] Blood UA 1+(A) Negative 05/03/2024 3:23 PM [facility] Nitrite UA Negative Negative 05/03/2024 3:23 PM [facility] Leukocyte Esterase Negative Negative 05/03/2024 3:23 PM [facility] Urobilinogen UA Negative Negative mg/dL 05/03/2024 3:23 PM [facility] Urine URINE SPECIMEN OBTAINED BY CLEAN CATCH PROCEDURE / Unknown Collection / Unknown 05/03/2024 2:49 PM [facility] 05/03/2024 2:54 PM [facility] Narrative [facility] - 05/03/2024 3:23 PM [facility] Jun Allen MD LAB - URINALYSIS ORD ERABLES Performing Organization Address City/[facility] Co de Phone Number [facility] [address] [place] [address], [place] [phone] * STREP PNEUMONIAE ANTIGEN URINE (05/03/2024 2:49 PM [facility]) Streptococcus pneumoniae Antigen Urine Negative Negative 05/04/2024 8:42 AM [facility] Urine URINE / Unknown Collection / Unknown 05/03/2024 2:49 PM [facility] 05/03/2024 2:54 PM [facility] MICROBIOLOGY - 05/04/2024 8:42 AM [facility] Patients who have received the Streptococcus pneumoniae [...] - MICROBIOL OGY ORDERABLES Performing Organization Address City/[facility] Co de Phone Number [facility] [address] [place], [place] [address] [phone] * LEGIONELLA ANTIGEN URINE (05/03/2024 2:49 PM [facility]) Legionella Antigen Urine Negative Negative 05/04/2024 8:13 AM [facility] Urine URINE / Unknown Collection / Unknown 05/03/2024 2:49 PM [facility] 05/03/2024 2:54 PM [facility] Narrative [facility] - 05/04/2024 8:13 AM [facility] This assay detects Legionella pneumophila serogroup one (1) antigen. A negative test result does not rule out the possibility of Legionella infection due to other serogroups or species of Legionella. A positive result may indicate a recent or remote infection with serogroup 1. Eder Bravo MD LAB - MICROBIOL OGY ORDERABLES [facility] [address] [place] [address], [place] [phone] * CULTURE URINE (05/03/2024 2:49 PM [facility]) Culture Urine No growth (<100 CFU/mL) SAURABH 05/05/2024 12:31 AM [facility] Urine URINE SPECIMEN OBTAINED BY CLEAN CATCH PROCEDURE / Unknown Collection / Unknown 05/03/2024 2:49 PM [facility] 05/03/2024 3:26 PM [facility] Jun Allen MD LAB - MICROBIOLOGY O RDERABLES Performing Organization Address [facility]/ZIP Co de Phone Number [facility] [address] [place] [address], [place] [phone] * ECHO COMPLETE W CONTRAST W BUBBLE STUDY (05/03/2024 2:00 PM [facility]) RVOT diam Doppler 2.642 cm [facility] CV [...] PACS LVOT VTI 29.583 cm [facility] CV [facility] I PACS RV-gallego basal diam 3.253 [facility] RVIDd 3.1 cm [facility] I PACS RVOT pk andrew 94.211 cm/s [facility] CV F UJI PACS RVOT VTI 20.129 cm [facility] CV [facility] I PACS LA size 4.79 cm [facility] CV [facility] I PACS LA vol BP 86.983 ml [facility] CV [facility] I PACS RA area 16.209 cm [facility] AV mn grad 7.512 mmHg [facility] CV FU PACS AV pk andrew 192.865 cm/s [facility] CV [facility] I PACS AV VTI 36.105 cm [facility] CV [facility] I PACS MV A pk andrew 90.525 cm/s [facility] CV F UJI PACS MV E pk andrew 107.95 cm/s [facility] CV F UJI PACS MV E' lateral andrew 13.245 cm/s [facility] MV lat a' andrew 10.849 cm/s [facility] P[facility] MV lat S' andrew 12.656 cm/s [facility] P[facility] RV-gallego mid diam 3.004 cm [facility] P[facility] MV mn grad 1.812 mmHg [facility] CV FU PACS MV VTI 34.837 cm [facility] CV [facility] I PACS PV pk andrew 129.553 cm/s [facility] CV [facility] I PACS PV VTI 26.389 cm [facility] CV [facility] I PACS Ascending aorta 2.869 cm [facility] IVC Diam Expiration 1.857 cm [facility] Anatomical Region Laterality Modality Ultrasound 05/03/2024 1:20 PM [facility] Narrative 05/03/2024 9:47 PM [facility] Summary * Findings consistent with elevated venous [...] I/P Study Site: [facility] Primary Location: [facility] Technical Quality: Fair Exam Type: ECHO COMPLETE [...] Provider: Jun Allen Attending Physician: Jun Allen Facilities Assistant: Willard Wallis Left Ventricle The left [...] I/P Study Site: [facility] Primary Location: [facility] Info Technical Quality: Fair Exam Type: ECHO [...] Provider: Jun Allen Attending Physician: Jun Allen Facilities Assistant: Willard Wallis Left Ventricle The left [...] CUPID * CULTURE BLOOD (05/03/2024 12:24 PM [facility]) Only the most recent of2 resultswithin the time period is included. Culture No growth day 5 SAURABH 05/08/2024 4:31 PM [facility] Blood PERIPHERAL BLOOD / Unknown Venipuncture / Unknown 05/03/2024 12:24 PM [facility] 05/03/2024 1:00 PM [facility] Jun Allen MD LAB - MICROBIOLOGY O RDERABLES [facility] [address] [place] [address], [place] [phone] * LACTIC ACID BLOOD (05/03/2024 12:24 PM [facility]) Only the most recent of4 resultswithin the time period is included. Pathologist [facility] Lactic Acid-Stat 1.6 <=2.0 mmol/L 05/03/2024 1:03 PM [facility] Blood BLOOD SPECIMEN / Unknown Venipuncture / Unknown 05/03/2024 12:24 PM [facility] 05/03/2024 12:32 PM [facility] Jun Allen MD LAB - CHEMISTRY ORDE AMBROSIO Performing Organization Address City/[facility]/ZIP Co de Phone Number [facility] [address] [place] [address], [place] [phone] * HIV-1 HIV-2 ANTIBODY + HIV P24 AG PANEL (05/03/2024 12:58 AM [facility]) HIV Antigen/Antibod y 1 & 2 Non-reacti ve Non-react grady 05/03/2024 2:15 AM [facility] Comment:No Laboratory eviden ce of HIV infection. Blood BLOOD SPECIMEN / Unknown Venipuncture / Unknown 05/03/2024 12:58 AM [facility] 05/03/2024 1:26 AM [facility] Jun Allen MD LAB - CHEMISTRY ORDE RABLES [facility] [address] [place] [address], [place] [phone] * HEMOGLOBIN A1C (05/03/2024 12:58 AM [facility]) Pathologist [facility] Hemoglobin A1c 5.0 <=5.6 % 05/03/2024 8:56 AM [facility] Estimated Average Glucose 97 mg/dL 05/03/2024 8:56 AM [facility] Comment: HbA1c Interpretation: Normal : < 5.7% Pre-diabetes: 5.7-6.4% Diabetes: Equal to or greater than 6.5% Test results diagnostic of diabetes should be repeated for confirmation. Treatment target values recommended by ADA and other clinical organizations should be used to evaluate metabolic control in patients. Reference: [place] [employer], Standards of Care in Diabetes -2020 In patients 70 years and older consider HbA1c target range of 7.0-7.5% (Reference: Jaime Adair et al. JAMDA. 2012) The Sebia assay for the measurement of HbA1c is a National Glycohemoglobin Standardization Program (NGSP) certified method. Blood BLOOD SPECIMEN / Unknown Venipuncture / Unknown 05/03/2024 12:58 AM [facility] 05/03/2024 1:57 AM [facility] Jun Allen MD LAB - CHEMISTRY NADIA VALENTE [facility] [address] [place] [address], [place] [phone] * RESPIRATORY PANEL WITH SARS-COV-2 BY PCR ([facility]) (05/02/2024 10:30 PM [facility]) [facility] Adenovirus PCR Not detected Not detected 05/03/2024 7:10 AM [facility] Coronavirus 229E PCR Not detected Not detected 05/03/2024 7:10 AM [facility] Coronavirus HKU1 PCR Not detected Not detected 05/03/2024 7:10 AM [facility] Coronavirus NL63 PCR Not detected Not detected 05/03/2024 7:10 AM [facility] Coronavirus OC43 PCR Not detected Not detected 05/03/2024 7:10 AM [facility] COVID-19 PCR Not detected Not detected 05/03/2024 7:10 AM [facility] Human Metapneumovirus PCR Not detected Not detected 05/03/2024 7:10 AM [facility] Human Rhinovirus/Enterov irus PCR Not detected Not detected 05/03/2024 7:10 AM [facility] Influenza A PCR Not detected Not detected 05/03/2024 7:10 AM [facility] Influenza B PCR Not detected Not detected 05/03/2024 7:10 AM [facility] Parainfluenza Virus 1 PCR Not detected Not detected 05/03/2024 7:10 AM [facility] Parainfluenza Virus 2 PCR Not detected Not detected 05/03/2024 7:10 AM [facility] Parainfluenza Virus 3 PCR Not detected Not detected 05/03/2024 7:10 AM [facility] Parainfluenza Virus 4 PCR Not detected Not detected 05/03/2024 7:10 AM [facility] Respiratory Syncytial Virus PCR Not detected Not detected 05/03/2024 7:10 AM [facility] Bordetella parapertussis PCR Not detected Not detected 05/03/2024 7:10 AM [facility] Bordetella pertussis PCR Not detected Not detected 05/03/2024 7:10 AM [facility] Chlamydia pneumoniae PCR Not detected Not detected 05/03/2024 7:10 AM [facility] Mycoplasma pneumoniae PCR Not detected Not detected 05/03/2024 7:[address] [facility] Microbiology SPECIMEN FROM NASOPHARYNGEAL STRUCTURE / Unknown Collection / Unknown 05/02/2024 10:30 PM [facility] 05/03/2024 1:26 AM [facility] Narrative [facility] - 05/03/2024 7:10 AM [facility] This nucleic amplification assay has received FDA authorization via the [employer]. Jun Allen MD LAB - MICROBIOLOGY O RDERABLES [facility] [address] [place] [address], [place] [phone] * CULTURE MRSA (05/02/2024 10:30 PM [facility]) Culture Negative for methicillin-resist ant Staphylococcus aureus (MRSA) SAURABH 05/04/2024 7:54 AM [facility] Microbiology SPECIMEN FROM NASAL FOSSAE / Unknown Collection / Unknown 05/02/2024 10:30 PM [facility] 05/03/2024 1:27 AM [facility] Jun Allen MD LAB - MICROBIOLOGY O RDERABLES [facility] [address] [place] [address], [place] [phone] * VANCOMYCIN LEVEL RANDOM (05/02/2024 10:21 PM [facility]) Pathologist [facility] Vancomycin Random 17.5 Therapeutic Ranges not established for random specimens ug/mL 05/02/2024 11:05 PM [facility] Blood BLOOD SPECIMEN / Unknown Venipuncture / Unknown 05/02/2024 10:21 PM [facility] 05/02/2024 10:32 PM [facility] Narrative [facility] - 05/02/2024 11:05 PM [facility] See institution protocol. Jun Allen MD LAB - CHEMISTRY ORDE AMBROSIO Performing Organization Address City/[facility]/ZIP Co de Phone Number [facility] [place] [address] [place] [address], [place] [phone] * PHOSPHATIDYLETHANOL (PETH) (05/02/2024 9:14 PM [facility]) PEth 16:0/18.1 (POPEth) 59 ng/mL 05/05/2024 3:22 PM [facility] ([facility]) Comment: PEth 16:0/18:1 (POPEth) Less than 10 ng/mL............Not detected Less than 20 ng/mL............Abstinence or light alcohol consumption 20 - 200 ng/mL................Moderate alcohol consumption Greater than 200 ng/mL........Heavy alcohol consumption or chronic alcohol use (Reference: Rufino Rae and Jory Chavis 2018 J. Forensic Sci) PEth 16:0/18.2 (PLPEth) 13 ng/mL 05/05/2024 3:22 PM [facility] ([facility]) Comment:Reference ranges are not well established. EER Peth See Note 05/05/2024 3:22 PM [facility] ([facility]) Comment: Authorized individuals can access the [employer] Enhanced Report with an [employer] Connect account using the following link. Your local lab can assist you in obtaining the patient report if you don't have a Connect account. [email or web address] Interpretation PEth See Comment 05/05/2024 3:22 PM [facility] ([facility]) Comment: Phosphatidylethanol (PEth) is a group of [...] developed and its performance characteristics determined by [employer]. It has not been cleared or approved by the U.S. Food and Drug Administration. This test was performed in a CLIA-certified laboratory and is intended for clinical purposes. Performed By: [employer] [address] [place] [id number] [employer] Stucco: Giorgio Poole MD, PhD CLIA Number: [id number] Blood BLOOD SPECIMEN / Unknown Venipuncture / Unknown 05/02/2024 9:14 PM [facility] 05/02/2024 10:05 PM [facility] Jun Allen MD LAB - CHEMISTRY ORDE RABJEREL Performing Organization Address City/[facility]/ZIP Co de Phone Number [facility]) [address] * SMOOTH MUSCLE ANTIBODY W REFLEX TITER (05/02/2024 9:14 PM [facility]) F-Actin Antibody IgG 19 0 - 19 Units 05/05/2024 5:30 AM [facility] ([facility]) Comment: If F-Actin (Smooth Muscle) Antibody, IgG [...] suspicion for AIH is strong. Performed By: [employer] [address] [place] [address] Plasterer Stucco: Giorgio Poole MD, PhD CLIA Number: [id number] Blood BLOOD SPECIMEN / Unknown Venipuncture / Unknown 05/02/2024 9:14 PM [facility] 05/02/2024 10:05 PM [facility] Jun Allen MD LAB - SEROLOGY ORDER GERALDO Performing Organization Address City/[facility]/ZIP Co de Phone Number [facility]) [address] * (ABNORMAL) MITOCHONDRIAL ANTIBODY SCREEN (05/02/2024 9:14 PM [facility]) Mitochondrial M2 Antibody 47.6(H) 0.0 - 24.9 Units 05/05/2024 5:31 AM AN[facility] WARDEN [facility] ([facility]) Comment: REFERENCE INTERVAL: Mitochondrial (M2) Antibody, IgG [...] does not rule out PBC. Performed By: [facility] [employer] [address] [place] [address] Plasterer Stucco: Giorgio Poole MD, PhD CLIA Number: [id number] Blood BLOOD SPECIMEN / Unknown Venipuncture / Unknown 05/02/2024 9:14 PM [facility] 05/02/2024 10:05 PM [facility] Jun Allen MD LAB - CHEMISTRY NADIA VALENTE Performing Organization Address City/[facility]/ZIP Co de Phone Number [facility]) [address] [place] [address] * CERULOPLASMIN (05/02/2024 9:14 PM [facility]) Ceruloplasmin 22 20 - 60 mg/dL 05/02/2024 10:43 PM [facility] Blood BLOOD SPECIMEN / Unknown Venipuncture / Unknown 05/02/2024 9:14 PM [facility] 05/02/2024 10:05 PM [facility] Jun Allen MD LAB - CHEMISTRY NADIA VALENTE Performing Organization Address City/[facility]/ZIP Co de Phone Number [facility] [address] [place] [address], [place] [phone] * (ABNORMAL) B-TYPE NATRIURETIC PEPTIDE (05/02/2024 9:14 PM [facility]ARD[facility]) Pathologist [facility] BNP 193(H) <100 pg/mL 05/02/2024 10:58 PM [facility] Comment: A decision threshold of 100 [...] Unknown Venipuncture / Unknown 05/02/2024 9:14 PM [facility] 05/02/2024 10:17 PM [facility] Jun Allen MD LAB - CHEMISTRY NADIA [facility]ENTE [address] [address], [place] [phone] * TSH (05/02/2024 9:14 PM [facility]) [facility] TSH 2.875 0.350 - 4.940 uIU/mL 05/03/2024 2:26 AM [facility] Blood BLOOD SPECIMEN / Unknown Venipuncture / Unknown 05/02/2024 9:14 PM [facility] 05/02/2024 10:17 PM [facility] Jun Allen MD LAB - CHEMISTRY NADIA [facility] [address] [address], [place] [phone] from Last 3 Months Advance Directives * Full Code (Latest Code Status on File) Date Activated Date Inactivated Comments 05/02/2024 9:07 PM 06/06/2024 4:40 PM
--- NOTE | 2024-07-24 11:10 | ED_ITS ---
HPI - Weakness General Chief complaint: Weakness Stated complaint: weakness Time Seen by Provider: 07/24/24 10:56 History of Present Illness HPI Narrative: 49-year-old female with complex medical history including alcoholic liver cirrhosis, type 2 diabetes, recent admission to the hospital for difficulty breathing found to have urinary tract infection and potential pneumonia complicated by admission to the ICU overnight for diabetic ketoacidosis secondary to steroid use. Patient was treated with antibiotics for extended spectrum beta lactamase UTI, discharged to a care facility after hospital stay and improvement. Today she presents the emergency department with generalized malaise, weakness and not feeling well. Patient states she feels confused and not herself. She denies any alcoholic intake for last 3 months. No other substances. She has a history of esophageal varices, but denies any vomiting, dark tarry stools or any belly pain. Patient states she has a mild headache at this time but no other pain. Collateral information obtained via EMR as patient is a poor historian. Related Data Home Medications ?Medication ?Instructions ?Recorded ?Confirmed ?Last Taken ?Type fluoxetine 20 mg/5 mL (4 mg/mL) 20 mg PO QAM 07/07/24 07/07/24 Unknown History oral solution folic acid 1 mg tablet 1 mg PO DAILY 07/07/24 07/07/24 Unknown History hydroxyzine HCl 25 mg tablet 25 mg PO PRN 07/07/24 07/07/24 Unknown History lactulose 10 gram/15 mL oral 10 g PO TID 07/07/24 07/07/24 Unknown History solution magnesium oxide-magnesium amino cap PO 07/07/24 Unknown History acid chelate 300 mg capsule melatonin 10 mg capsule 10 mg PO HS 07/07/24 07/07/24 Unknown History nicotine 14 mg/24 hr daily 1 patch transdermal DAILY 07/07/24 07/07/24 Unknown History transdermal patch pantoprazole 40 mg tablet,delayed 40 mg PO QAM 07/07/24 07/07/24 Unknown History release rifaximin 550 mg tablet (Xifaxan) 550 mg PO BID 07/07/24 07/07/24 Unknown History thiamine HCl (vitamin B1) 100 mg 100 mg PO DAILY 07/07/24 07/07/24 Unknown History capsule trazodone 50 mg tablet 75 mg PO HS 07/07/24 07/07/24 Unknown History Allergies Allergy/AdvReac Type Severity Reaction Status Date / Time No Known Allergies Allergy Verified 07/24/24 12:24 Review of Systems 2 Review of Systems: As reviewed above in HPI [facility] Past Medical History Medical History Cirrhosis Elevated liver enzymes Hepatitis, alcoholic, acute Chronic pancreatitis Portal hypertension Coagulopathy Atrial fibrillation with rapid ventricular response Suicidal ideation Esophageal varices Diabetes mellitus Anxiety Panic attacks Chronic depression Chronic liver disease Surgical History Surgical History History of bilateral ligation of fallopian tubes History of gastrointestinal surgery For esophageal varices Family History Family History Mother Chronic obstructive pulmonary disease Other Unknown family medical history Social History Social History Social History: Homeless but per documentation going through a messy divorce Smoking status: Unknown if ever smoked Alcohol intake: former Drinks per week: 20 Alcohol use details: Liquor Substance use: never Do You Feel Safe in your Home?: Yes Lack of Transportation: YES Lack of Food: Sometimes True Current Housing: I Have Housing Concerned About Future Housing: No Difficulty Paying Gas/Electric Bills: No Difficulty Paying for Meds: No Currently Unemployed: No Education: High School Diploma/GED Difficulty w/ Childcare or Family Care: No Spiritual care concerns: No Exam 2 Narrative: GENERAL: Chronically ill-appearing, not any acute distress, drowsy but arousable answering questions. HEAD: [Normocephalic, atraumatic.] EYES: [PERRLA and EOMI.] Periorbital edema, petechiae ENT: Nares clear, no rhinorrhea or epistaxis. Mucous membranes dry. NECK: Supple. CHEST: [Clear to auscultation. No respiratory distress.] HEART: [Regular rate and rhythm]. No murmur heard. [Normal peripheral pulses.] ABDOMEN: Protuberant but nondistended, soft, [nontender], [No rigidity or guarding] EXTREMITIES: Normal range of motion. [No edema.] SKIN: Warm, dry, no rash. NEURO: [No focal deficits]. Alert and oriented [x3.] Asterixis is noted bilaterally, no nystagmus is noted. No tongue fasciculations PSYCH: [Normal mood and affect.] Course Vital Signs Vital signs: Vital Signs Temperature 37.2 C 07/24/24 10:48 Pulse Rate 66 07/24/24 10:48 Respiratory Rate 18 07/24/24 10:48 Blood Pressure 161/84 H 07/24/24 10:48 Pulse Oximetry 96 07/24/24 10:48 Oxygen Delivery Room Air 07/24/24 10:48 Temperature 37.2 C 07/24/24 10:48 Pulse Rate 60 07/24/24 12:22 Respiratory Rate 19 07/24/24 12:22 Blood Pressure 120/70 07/24/24 12:21 Pulse Oximetry 97 07/24/24 11:51 Oxygen Delivery Room Air 07/24/24 10:48 MDM - Weakness MDM Narrative Medical decision making narrative: 49-year-old female with a history of alcoholic liver cirrhosis, type 2 diabetes, recent hospital stay for UTI and upper respiratory infection complicated by ICU admission for DKA. Patient was treated with antibiotics, discharged to a care facility 2 weeks prior. Patient states she has been feeling generalized malaise and fatigue, generally feeling unwell and complains of a minor headache today. She is not any acute distress but appears chronically ill and unwell. She has no vital abnormalities aside from some stable hypertension. No tachycardia, fever or hypoxia. She does have prominent asterixis noted bilaterally on upper extremity examination. No nystagmus. She is answering questions appropriately but states she feels confused. Suspicion presently is for potential metabolic disturbances, hyperammonemia, hepatic encephalopathy, dehydration, infectious process versus pneumonia urinary tract infection. Low suspicion intracranial pathology such as a brain bleed or stroke. Will obtain broad workup including CBC, CMP, ammonia level, magnesium, EKG, chest x-ray, head CT, PT, PTT. Patient's ammonia is elevated above 100 over previous baseline upon discharge. On review of the previous discharge instructions she was instructed to hold her lactulose as she was having diarrhea episodes and this is likely what contributed to her hepatic encephalopathy picture today. She was given lactulose p.o. remaining workup shows no leukocytosis or anemia. Platelet count at her normal thrombocytopenia. Electrolytes show no anion gap, mildly low bicarb, normal potassium, low magnesium with QTC prolonging for which she was given 2 g. Elevated glucose of 259 without evidence of DKA. She was given a L of fluid. LFTs with chronic elevations from alcoholic liver disease. Urinalysis shows no leukocyte esterase, no white cells, no signs of active infection. Negative COVID flu and RSV. Head CT without any significant abnormalities. Chest x-ray without any findings. Patient likely has stage II hepatic encephalopathy at this time given her drowsiness, asterixis, elevated ammonia level and otherwise unremarkable workup. Patient will likely require admission for further evaluation and treatment with frequent re-evaluation, lactulose initiated here. Spoke to the hospitalist team who accepted the patient to telemetry monitored bed at this time. Medical Records Attestation: I reviewed the patient's medical records. Lab Data Attestation: I reviewed the patient's lab results. 07/24/24 11:07 07/24/24 11:07 Labs: Lab Results 07/24/24 07/24/24 07/24/24 Range/Units 11:06 11:07 11:08 WBC 3.9 L (4.5-10.0) K/mm3 RBC 4.20 (4.2-5.4) M/mm3 Hgb 13.7 (12.0-15.0) g/dL Hct 40.2 (37.0-47.0) % MCV 95.7 (80-100) fl MCH 32.6 (26-34) pg MCHC 34.1 (32-36) g/dl RDW 15.0 H (11.5-14.5) % Plt Count 125 L (150-375) k/mm3 MPV 10.7 H (7.4-10.4) fl Immature Gran % (Auto) 0.3 (0-0.5) % Neut % (Auto) 55.0 (45.5-73.1) % Lymph % (Auto) 27.2 (18.3-44.2) % [place] % (Auto) 14.4 H (2.6-8.5) % Eos % (Auto) 1.8 (0-4.4) % Baso % (Auto) 1.3 H (0.2-1.2) % Lymph # (Auto) 1.06 (0.9-3.2) K/mm3 [place] # (Auto) 0.6 (0.1-0.6) K/mm3 Eos # (Auto) 0.1 (0-0.3) K/mm3 Baso # (Auto) 0.1 (0.0-0.1) K/mm3 Abs Immat Gran (auto) 0.01 (0.00-0.031) K/mm3 Absolute Neuts (auto) 2.2 (1.3-6.7) K/mm3 Absolute Nucleated RBC 0.000 (0.0-0.012) K/mm3 Nucleated RBC % 0.0 (0.0-0.2) % PT 18.2 H (11.1-14.7) Seconds INR 1.5 APTT 38.0 H (22.3-36.8) Seconds Sodium 141 (137-145) mmol/L Potassium 3.5 (3.4-5.0) mmol/L Chloride 112 H (98-107) mmol/L Carbon Dioxide 17 L (22-30) mmol/L Anion Gap 12 (4-12) mmol/L BUN 8 (7-17) mg/dL Creatinine 0.49 L (0.7-1.0) mg/dL Estim Creat Clear Calc 98 ml/min Estimated GFR > 60 (59 - ) Glucose 259 H (65-110) mg/dL Calcium 9.0 (8.4-10.2) mg/dL Magnesium (1.6-2.3) mg/dL Total Bilirubin 2.9 H (0.2-1.3) mg/dL AST 37 H (14-36) U/L ALT 24 (6-35) U/L Alkaline Phosphatase 164 H (38-126) U/L Ammonia (9-30) umol/L Total Protein 7.0 (6.3-8.2) g/dL Albumin 3.5 (3.5-5.1) g/dL Urine Color (Yellow) Urine Appearance (Clear) Urine pH (5.0-9.0) Ur Specific [place] (1.001-1.035) Urine Protein (Negative) mg/dL Urine Glucose (UA) (Negative) mg/dL Urine Ketones (Negative) mg/dL Ur Blood (Man) (Negative) Urine Nitrate (Negative) Urine Bilirubin (Negative) Urine Urobilinogen (<2.0) mg/dL Leukocyte Esterase Rfl (Negative) KELSEA/UL Urine RBC (0-2) /hpf Urine WBC (0-3) /hpf Ur Squamous Epith Cells (Few) /hpf Urine Bacteria /hpf Urine Casts Influenza A (RT-PCR) Negative (Negative) Influenza B (RT-PCR) Negative (Negative) RSV (RT-PCR) Negative (Negative) SARS-CoV-2 RNA (RT-PCR) Negative (Negative) 07/24/24 07/24/24 Range/Units 11:13 11:29 WBC (4.5-10.0) K/mm3 RBC (4.2-5.4) M/mm3 Hgb (12.0-15.0) g/dL Hct (37.0-47.0) % MCV (80-100) fl MCH (26-34) pg MCHC (32-36) g/dl RDW (11.5-14.5) % Plt Count (150-375) k/mm3 MPV (7.4-10.4) fl Immature Gran % (Auto) (0-0.5) % Neut % (Auto) (45.5-73.1) % Lymph % (Auto) (18.3-44.2) % [place] % (Auto) (2.6-8.5) % Eos % (Auto) (0-4.4) % Baso % (Auto) (0.2-1.2) % Lymph # (Auto) (0.9-3.2) K/mm3 [place] # (Auto) (0.1-0.6) K/mm3 Eos # (Auto) (0-0.3) K/mm3 Baso # (Auto) (0.0-0.1) K/mm3 Abs Immat Gran (auto) (0.00-0.031) K/mm3 Absolute Neuts (auto) (1.3-6.7) K/mm3 Absolute Nucleated RBC (0.0-0.012) K/mm3 Nucleated RBC % (0.0-0.2) % PT (11.1-14.7) Seconds INR APTT (22.3-36.8) Seconds Sodium (137-145) mmol/L Potassium (3.4-5.0) mmol/L Chloride (98-107) mmol/L Carbon Dioxide (22-30) mmol/L Anion Gap (4-12) mmol/L BUN (7-17) mg/dL Creatinine (0.7-1.0) mg/dL Estim Creat Clear Calc ml/min Estimated GFR (59 - ) Glucose (65-110) mg/dL Calcium (8.4-10.2) mg/dL Magnesium 1.5 L (1.6-2.3) mg/dL Total Bilirubin (0.2-1.3) mg/dL AST (14-36) U/L ALT (6-35) U/L Alkaline Phosphatase (38-126) U/L Ammonia 107 H (9-30) umol/L Total Protein (6.3-8.2) g/dL Albumin (3.5-5.1) g/dL Urine Color Yellow (Yellow) Urine Appearance Cloudy H (Clear) Urine pH 6.0 (5.0-9.0) Ur Specific [place] 1.016 (1.001-1.035) Urine Protein Negative (Negative) mg/dL Urine Glucose (UA) 1+ H (Negative) mg/dL Urine Ketones Negative (Negative) mg/dL Ur Blood (Man) Negative (Negative) Urine Nitrate Positive H (Negative) Urine Bilirubin Negative (Negative) Urine Urobilinogen 1.0 (<2.0) mg/dL Leukocyte Esterase Rfl Negative (Negative) KELSEA/UL Urine RBC 0-2 (0-2) /hpf Urine WBC 0-5 (0-3) /hpf Ur Squamous Epith Cells None seen (Few) /hpf Urine Bacteria 4+ /hpf Urine Casts 0-2 Influenza A (RT-PCR) (Negative) Influenza B (RT-PCR) (Negative) RSV (RT-PCR) (Negative) SARS-CoV-2 RNA (RT-PCR) (Negative) Imaging Data Attestation: I personally reviewed and interpreted this imaging study as follows: My impression: Impressions Chest X-Ray 07/24/24 11:08 Impression: Clear lungs. Head CT 07/24/24 11:43 Impression: No significant abnormality seen. Critical Care Time Critical Care Time Critical Care Time: Yes Total Critical Care Time: 40 Discharge Plan Discharge Clinical Impression: HE (hepatic encephalopathy), Altered mental status, Hypomagnesemia, Asterixis, QT prolongation, Elevated glucose Alcoholic cirrhosis Qualifiers: Ascites presence: unspecified Qualified Code(s): K70.30 - Alcoholic cirrhosis of liver without ascites Patient Disposition: Still a Patient Condition: Stable Patient Language: Hungarian Prescriptions: No Action fluoxetine 20 mg/5 mL (4 mg/mL) solution 20 mg PO QAM folic acid 1 mg tablet 1 mg PO DAILY hydroxyzine HCl 25 mg tablet 25 mg PO PRN lactulose 10 gram/15 mL solution 10 g PO TID magnesium oxide-Mg AA chelate 300 mg capsule PO melatonin 10 mg capsule 10 mg PO HS nicotine 14 mg/24 hr patch 24 hour 1 patch transdermal DAILY pantoprazole 40 mg tablet,delayed release (DR/EC) 40 mg PO QAM trazodone 50 mg tablet 75 mg PO HS thiamine HCl (vitamin B1) 100 mg capsule 100 mg PO DAILY Xifaxan 550 mg tablet 550 mg PO BID benzonatate 100 mg Capsule 100 mg PO TID PRN (Reason: Cough) Qty: 30 0RF potassium chloride [K-Tab] 20 mEq Tablet Extended Release 20 meq PO DAILY@0800 Qty: 30 0RF Follow-up/Referrals: PHYSICIAN NOT ON STAFF,NONSTAFF [Primary Care Provider] - Time of Disposition: 12:36
[2024-07-24 11:12] LABS: Basophils Absolute Auto 0.1 K/mm3 (0.0-0.1); Basophils Percent Auto 1.3 % (0.2-1.2); Eosinophils Absolute Auto 0.1 K/mm3 (0-0.3); Eosinophils Percent Auto 1.8 % (0-4.4); Hematocrit 40.2 % (37.0-47.0); Hemoglobin 13.7 g/dL (12.0-15.0); Immature Granulocyte Absolute 0.01 K/mm3 (0.00-0.031); Immature Granulocyte Percent A 0.3 % (0-0.5); Lymphocytes Absolute Auto 1.06 K/mm3 (0.9-3.2); Lymphocytes Percent Auto 27.2 % (18.3-44.2); Mean Corpuscular HGB Conc 34.1 g/dl (32-36); Mean Corpuscular Hemoglobin 32.6 pg (26-34); Mean Corpuscular Volume 95.7 fl (80-100); Mean Platelet Volume 10.7 fl (7.4-10.4); Monocytes Absolute Auto 0.6 K/mm3 (0.1-0.6); Monocytes Percent Auto 14.4 % (2.6-8.5); Neutrophils Absolute Auto 2.2 K/mm3 (1.3-6.7); Platelet Count Result 125 k/mm3 (150-375); White Blood Count 3.9 K/mm3 (4.5-10.0)
[2024-07-24] MEDS: MAGNESIUM SULF 2 GM/WATER 50ML 2 GM/50 ML BAG IVPB ×2 (11:18→23:16)
[2024-07-24 11:25] LABS: Alanine Aminotransferase 24 U/L (6-35); Albumin Level 3.5 g/dL (3.5-5.1); Alkaline Phosphatase 164 U/L (38-126); Anion Gap 12 mmol/L (4-12); Aspartate Amino Transferase 37 U/L (14-36); Bilirubin,Total 2.9 mg/dL (0.2-1.3); Blood Urea Nitrogen 8 mg/dL (7-17); Carbon Dioxide 17 mmol/L (22-30); Chloride 112 mmol/L (98-107); Estimated CRCL calculation 98 ml/min; Estimated Glomerular Filt Rate > 60; Glucose 259 mg/dL (65-110); Potassium 3.5 mmol/L (3.4-5.0); Sodium 141 mmol/L (137-145)
[2024-07-24 11:30] LABS: Ammonia 107 umol/L (9-30)
[2024-07-24 11:31] LABS: Magnesium 1.5 mg/dL (1.6-2.3)
[2024-07-24 11:32] LABS: INR 1.5; Prothrombin Time 18.2 Seconds (11.1-14.7)
[2024-07-24 11:38] LABS: Add Urine Microscopic? YES; Appearance Urine Cloudy (Clear); Bacteria Urine 4+ /hpf; Bilirubin Urine Negative (Negative); Blood Urine Negative (Negative); Color Urine Yellow (Yellow); Glucose Urine UA 1+ mg/dL (Negative); Ketones Urine Negative (Negative); Leukocyte Esterase Ur Negative LEU/UL (Negative); Nitrate Urine Positive (Negative); Non Pathogenic Casts 0-2; Protein Urine Negative (Negative); RBC Urine 0-2 /hpf (0-2); Specific Grav Ur 1.016 (1.001-1.035); Squamous Epithelial Cell Urine None Seen /hpf (Few); WBC Urine 0-5 /hpf (0-3)
[2024-07-24 11:48] LABS: Influenza A QL RT-PCR Negative (Negative); Influenza B QL RT-PCR Negative (Negative); RSV RNA, RT-PCR Negative (Negative); SARS-CoV-2 RNA PCR Negative (Negative)
[2024-07-24] MEDS: LACTATED RINGERS 1,000 ML 999 ML IV CONT (12:34)
[2024-07-24] MEDS: LACTULOSE 20 GM/30 ML UDC PO ×3 (12:34→21:40)
--- NOTE | 2024-07-24 13:44 | P.HP_ITS ---
H&P: HPI History of Present Illness Date/Time: 07/24/24 13:44 Chief Complaint: Altered mental status Narrative: 49-year-old female who was recently hospitalized with a UTI presents the hospital with altered mental status. Due to severe diarrhea on discharge she did stop taking her lactulose. Patient states that she is confused and feels weird. She states she thinks she has started lactulose again yesterday. Patient also complains of rash on her face. In the ED patient has leukopenia at 3.9, platelet count of 125, INR of 1.5 carbon dioxide of 17, glucose of 259, magnesium of 1.5, total bili of 2.9, AST of 37, alkaline phos of 164, ammonia of 107. UA is cloudy with positive nitrates. Head CT shows no acute findings. Chest x-ray is unremarkable. EKG shows sinus rhythm rate of 63, QTC of 505. Review of Systems Review of Systems: 12 systems were reviewed and are negativ e except for as per HPI. ON LICENSE OF [facility] Past Medical History Medical History Cirrhosis Elevated liver enzymes Hepatitis, alcoholic, acute Chronic pancreatitis Portal hypertension Coagulopathy Atrial fibrillation with rapid ventricular response Suicidal ideation Esophageal varices Diabetes mellitus Anxiety Panic attacks Chronic depression Chronic liver disease Surgical History Surgical History History of bilateral ligation of fallopian tubes History of gastrointestinal surgery For esophageal varices Family History Family History Mother Chronic obstructive pulmonary disease Other Unknown family medical history Social History Social History Social History: Homeless but per documentation going through a messy divorce Smoking status: Unknown if ever smoked Alcohol intake: former Drinks per week: 20 Alcohol use details: Liquor Substance use: never Do You Feel Safe in your Home?: Yes Lack of Transportation: YES Lack of Food: Sometimes True Current Housing: I Have Housing Concerned About Future Housing: No Difficulty Paying Gas/Electric Bills: No Difficulty Paying for Meds: No Currently Unemployed: No Education: High School Diploma/GED Difficulty w/ Childcare or Family Care: No Spiritual care concerns: No Meds Home Medications and Allergies Home Medications ?Medication ?Instructions ?Recorded ?Confirmed ?Type fluoxetine 20 mg/5 mL (4 mg/mL) 20 mg PO QAM 07/07/24 07/24/24 History oral solution folic acid 1 mg tablet 1 mg PO DAILY 07/07/24 07/24/24 History hydroxyzine HCl 25 mg tablet 25 mg PO BID PRN anxiety 07/07/24 07/24/24 History lactulose 10 gram/15 mL oral 10 g PO TID 07/07/24 07/24/24 History solution magnesium oxide-magnesium amino 1 cap PO DAILY 07/07/24 07/24/24 History acid chelate 300 mg capsule melatonin 10 mg capsule 10 mg PO HS 07/07/24 07/24/24 History nicotine 14 mg/24 hr daily 1 patch transdermal DAILY 07/07/24 07/24/24 History transdermal patch pantoprazole 40 mg tablet,delayed 40 mg PO QAM 07/07/24 07/24/24 History release rifaximin 550 mg tablet (Xifaxan) 550 mg PO BID 07/07/24 07/24/24 History thiamine HCl (vitamin B1) 100 mg 100 mg PO DAILY 07/07/24 07/24/24 History capsule trazodone 50 mg tablet 50 mg PO HS 07/07/24 07/24/24 History potassium chloride 20 mEq 20 meq PO DAILY@0800 #30 tabs 07/13/24 07/24/24 Rx tablet,extended release (K-Tab) Allergies Allergy/AdvReac Type Severity Reaction Status Date / Time No Known Allergies Allergy Verified 07/24/24 12:24 Vital Signs Vital Signs - 24 hr 07/24/24 10:48 07/24/24 10:54 07/24/24 11:01 Temperature 98.9 F Pulse Rate 66 68 Respiratory Rate 18 21 H Blood Pressure 161/84 H Pulse Oximetry 96 99 92 Oxygen Delivery Room Air 07/24/24 11:02 07/24/24 11:15 07/24/24 11:16 Temperature Pulse Rate 60 58 L 59 L Respiratory Rate 18 19 20 Blood Pressure 124/82 143/77 H Pulse Oximetry 94 Oxygen Delivery 07/24/24 11:32 07/24/24 11:51 07/24/24 12:21 Temperature Pulse Rate 60 59 L Respiratory Rate 20 12 Blood Pressure 120/70 Pulse Oximetry 96 97 Oxygen Delivery 07/24/24 12:22 Temperature Pulse Rate 60 Respiratory Rate 19 Blood Pressure Pulse Oximetry Oxygen Delivery Exam Narrative: General: well appearing, appears stated age. HEENT: Butterfly rash normocephalic, atraumatic. Mucous membranes moist. EOMI, PERRLA, bilateral sclera anicteric, no conjunctival injection. Neck supple without JVD, lymphadenopathy, or bruit. Respiratory: clear to ascultation bilaterally. No rales/rhonic/wheezes. Cardiovascular: Regular rate and rhythm, normal S1-S2 upon ascultation. No murmurs, rubs, or clicks. PMI is nondisplaced, capillary refill less than 3 second. Abdomen: Soft, round, no pulsatile masses, nondistended and nontender. No rebound, no guarding. No CVA tenderness, no hepatosplenomegaly. Bowel sounds present to all four quadrants. No high pitch or tinkling sounds, resonant to percussion. Extremities: No cyanosis, clubbing, or edema present. Pulses are palpable 2/2. Active ROM to all four extremities. Neuro: Alert and orientated x 4. PERRLA. Cranial nerves 2-12 intact without focal deficit. Skin: Warm, dry, and intact, without rash, erythema, or lesion. Psych: pleasant, cooperative, normal speech, normal affect, no hallucinations, no dysarthia H&P: Results Labs Labs: Short CBC 07/24/24 Range/Units 11:07 WBC 3.9 L (4.5-10.0) K/mm3 Hgb 13.7 (12.0-15.0) g/dL Hct 40.2 (37.0-47.0) % Plt Count 125 L (150-375) k/mm3 BMP 07/24/24 11:07 Sodium 141 Potassium 3.5 Chloride 112 H Carbon Dioxide 17 L BUN 8 Creatinine 0.49 L Glucose 259 H Calcium 9.0 Liver Function 07/24/24 Range/Units 11:07 Total Bilirubin 2.9 H (0.2-1.3) mg/dL AST 37 H (14-36) U/L ALT 24 (6-35) U/L Alkaline Phosphatase 164 H (38-126) U/L Albumin 3.5 (3.5-5.1) g/dL Urine 07/24/24 Range/Units 11:29 Urine Color Yellow (Yellow) Urine Appearance Cloudy H (Clear) Urine pH 6.0 (5.0-9.0) Ur Specific [place] 1.016 (1.001-1.035) Urine Protein Negative (Negative) mg/dL Urine Glucose (UA) 1+ H (Negative) mg/dL Assessment and Plan Assessment and plan (1) Hepatic encephalopathy: Code(s): K76.82 - Hepatic encephalopathy Status: Acute Assessment and Plan: Secondary to not taking lactulose Restart lactulose goal of 3 bowel movements per day Neurochecks (2) Hypomagnesemia: Code(s): E83.42 - Hypomagnesemia Status: Acute Assessment and Plan: Replace electrolytes Magnesium level in the morning (3) QT prolongation: Code(s): R94.31 - Abnormal electrocardiogram [ECG] [EKG] Status: Acute Assessment and Plan: Avoid QTC prolongation medications applications intern (4) Thrombocytopenia: Code(s): D69.6 - Thrombocytopenia, unspecified Status: Acute Assessment and Plan: Chronic due to alcoholic cirrhosis CBC in a.m. (5) Coagulopathy: Code(s): D68.9 - Coagulation defect, unspecified Status: Acute Assessment and Plan: PTT in a.m. No signs of acute bleeding at this time (6) Diabetes mellitus: Qualifiers: Diabetes mellitus complication status: with hyperglycemia Diabetes mellitus terminal operations supervisor insulin use: without care home use Diabetes mellitus type: type 2 Qualified Code(s): E11.65 - Type 2 diabetes mellitus with hyperglycemia Code(s): E11.9 - Type 2 diabetes mellitus without complications Status: Chronic Assessment and Plan: Diabetic diet Accu-Cheks a.c. HS SSI (7) Alcoholic cirrhosis: Qualifiers: Ascites presence: unspecified Qualified Code(s): K70.30 - Alcoholic cirrhosis of liver without ascites Code(s): K70.30 - Alcoholic cirrhosis of liver without ascites Status: Acute Assessment and Plan: Monitor for alcohol withdrawal (8) UTI (urinary tract infection): Qualifiers: Hematuria presence: without hematuria Urinary tract infection type: acute cystitis Qualified Code(s): N30.00 - Acute cystitis without hematuria Code(s): N39.0 - Urinary tract infection, site not specified Status: Acute Assessment and Plan: IV Rocephin (9) Butterfly rash: Code(s): R21 - Rash and other nonspecific skin eruption Status: Acute Assessment and Plan: TSH, ESR, CK, CRP, AIRAM (10) Hypokalemia: Code(s): E87.6 - Hypokalemia Status: Acute Assessment and Plan: Replete as needed Daily BMP Quality VTE Prophylaxis VTE prophylaxis: mechanical ordered If No VTE Prophylaxis Answer both mechanical and pharmacologic: Reason no pharmacologic proph: medical contraindication Hospitalist MIPS Advance Care Plan I have confirmed that the patient's Advanced Care Plan is present, code status is documented, or surrogate decision maker is listed in patient medical record.: Yes Medication Reconciliation I have utilized all available resources to obtain, update and review the patients current medications (includes all prescriptions, OTC, herbals, cannabis, and nutritional supplements).: Yes
[2024-07-24 17:20] LABS: Glucose Point of Care 111 mg/dl (65-105)
[2024-07-24] MEDS: INSULIN ASPART (*BKC) 100 UNITS/ML SUB-Q (21:37)
[2024-07-24] MEDS: INSULIN GLARGINE (*BKC) 100 UNITS/ML 10 UNITS SUB-Q (21:37)
[2024-07-24 22:17] LABS: Magnesium 1.5 mg/dL (1.6-2.3); Phosphorus 3.7 mg/dL (2.5-4.5)
[2024-07-24 22:19] LABS: Potassium 3.3 mmol/L (3.4-5.0)
[2024-07-24 22:26] LABS: Glucose Point of Care 219 mg/dl (65-105)
[2024-07-24] MEDS: POTASSIUM CHLORIDE INJ 40 MEQ in SODIUM CHLORIDE 0.9% IV 500 ML 130 MEQ IVPB (23:16)
[2024-07-25] VITALS (9 sets, daily range): BP systolic 128–134; BP diastolic 64–69; PULSE 56–75; RESP 18–24; TEMP 36.4–36.8; O2SAT 98–100
[2024-07-25 06:38] LABS: Basophils Absolute Auto 0.1 K/mm3 (0.0-0.1); Basophils Percent Auto 1.1 % (0.2-1.2); Eosinophils Absolute Auto 0.1 K/mm3 (0-0.3); Eosinophils Percent Auto 2.2 % (0-4.4); Hematocrit 39.3 % (37.0-47.0); Hemoglobin 13.2 g/dL (12.0-15.0); Immature Granulocyte Absolute 0.02 K/mm3 (0.00-0.031); Immature Granulocyte Percent A 0.4 % (0-0.5); Lymphocytes Absolute Auto 1.09 K/mm3 (0.9-3.2); Lymphocytes Percent Auto 24.3 % (18.3-44.2); Mean Corpuscular HGB Conc 33.6 g/dl (32-36); Mean Corpuscular Hemoglobin 32.4 pg (26-34); Mean Corpuscular Volume 96.3 fl (80-100); Monocytes Absolute Auto 0.8 K/mm3 (0.1-0.6); Monocytes Percent Auto 17.2 % (2.6-8.5); Neutrophils Absolute Auto 2.5 K/mm3 (1.3-6.7); Neutrophils Percent Auto 54.8 % (45.5-73.1); Platelet Count Result 130 k/mm3 (150-375); Red Blood Count 4.08 M/mm3 (4.2-5.4); Red Cell Distribution Width 14.6 % (11.5-14.5); White Blood Count 4.5 K/mm3 (4.5-10.0)
[2024-07-25 06:43] LABS: Alanine Aminotransferase 23 U/L (6-35); Albumin Level 3.2 g/dL (3.5-5.1); Alkaline Phosphatase 128 U/L (38-126); Anion Gap 11 mmol/L (4-12); Aspartate Amino Transferase 37 U/L (14-36); Bilirubin,Total 2.7 mg/dL (0.2-1.3); Blood Urea Nitrogen 8 mg/dL (7-17); Calcium 8.8 mg/dL (8.4-10.2); Carbon Dioxide 19 mmol/L (22-30); Chloride 112 mmol/L (98-107); Estimated CRCL calculation 80 ml/min; Estimated Glomerular Filt Rate > 60; Glucose 153 mg/dL (65-110); Magnesium 1.7 mg/dL (1.6-2.3); Phosphorus 4.2 mg/dL (2.5-4.5); Potassium 3.4 mmol/L (3.4-5.0); Sodium 142 mmol/L (137-145)
[2024-07-25 06:54] LABS: CRP 0.5 mg/dL (<1.0); Creatine Kinase 28 U/L (30-135)
[2024-07-25 07:44] LABS: Glucose Point of Care 156 mg/dl (65-105)
[2024-07-25 07:55] LABS: Erythrocyte Sedimentation Rate 20 mm/hr (0-20)
[2024-07-25] MEDS: LACTULOSE 20 GM/30 ML UDC PO ×4 (10:08→16:58)
[2024-07-25] MEDS: rifAXIMin 550 MG TABLET PO ×2 (10:09→16:58)
--- NOTE | 2024-07-25 10:41 | P.PNIM_ITS ---
Progress Note: A&P Assessment and Plan (1) Hepatic encephalopathy: Code(s): K76.82 - Hepatic encephalopathy Status: Acute Assessment and Plan: Secondary to not taking lactulose Restart lactulose goal of 3 bowel movements per day Neurochecks improving, had 2-3 BMs today (2) Hypomagnesemia: Code(s): E83.42 - Hypomagnesemia Status: Acute Assessment and Plan: Replace electrolytes trend Magnesium (3) QT prolongation: Code(s): R94.31 - Abnormal electrocardiogram [ECG] [EKG] Status: Acute Assessment and Plan: Avoid QTC prolongation medications evaluator (4) Thrombocytopenia: Code(s): D69.6 - Thrombocytopenia, unspecified Status: Acute Assessment and Plan: Chronic due to alcoholic cirrhosis CBC in a.m. (5) Coagulopathy: Code(s): D68.9 - Coagulation defect, unspecified Status: Acute Assessment and Plan: PTT in a.m. No signs of acute bleeding at this time (6) Diabetes mellitus: Qualifiers: Diabetes mellitus complication status: with hyperglycemia Diabetes mellitus longterm insulin use: without keno terminal operator use Diabetes mellitus type: type 2 Qualified Code(s): E11.65 - Type 2 diabetes mellitus with hyperglycemia Code(s): E11.9 - Type 2 diabetes mellitus without complications Status: Chronic Assessment and Plan: Diabetic diet Accu-Cheks a.c. HS SSI (7) Alcoholic cirrhosis: Qualifiers: Ascites presence: unspecified Qualified Code(s): K70.30 - Alcoholic cirrhosis of liver without ascites Code(s): K70.30 - Alcoholic cirrhosis of liver without ascites Status: Acute Assessment and Plan: Monitor for alcohol withdrawal (8) UTI (urinary tract infection): Qualifiers: Hematuria presence: without hematuria Urinary tract infection type: acute cystitis Qualified Code(s): N30.00 - Acute cystitis without hematuria Code(s): N39.0 - Urinary tract infection, site not specified Status: Acute Assessment and Plan: IV Rocephin (9) Butterfly rash: Code(s): R21 - Rash and other nonspecific skin eruption Status: Acute Assessment and Plan: TSH, ESR, CK, CRP, AIRAM (10) Hypokalemia: Code(s): E87.6 - Hypokalemia Status: Acute Assessment and Plan: Replete as needed Daily BMP Plan will restart home meds: trazadone 50 mg and melatonin 10 mg to help pt sleep Time Spent With Patient Time with patient: 25 - 35 minutes Subjective Date/time seen: 07/25/24 10:41 Interval history: Altered mental status 49-year-old female who was recently hospitalized with a UTI presents the hospital with altered mental status. Due to severe diarrhea on discharge she did stop taking her lactulose. Patient states that she is confused and feels weird. She states she thinks she has started lactulose again yesterday. Patient also complains of rash on her face. In the ED patient has leukopenia at 3.9, platelet count of 125, INR of 1.5 carbon dioxide of 17, glucose of 259, magnesium of 1.5, total bili of 2.9, AST of 37, alkaline phos of 164, ammonia of 107. UA is cloudy with positive nitrates. Head CT shows no acute findings. Chest x-ray is unremarkable. EKG shows sinus rhythm rate of 63, QTC of 505. 3/10 pt is seen and examined. c/o headache. Having BMs now. feeling better. requesting melatonin and 50 mg trazadone restarted at night to help her sleep. Eating and drinking well. Review of Systems Review of Systems: 12 systems were reviewed and are negativ e except for as per HPI. Exam Narrative: General: well appearing, appears stated age. HEENT: Butterfly rash normocephalic, atraumatic. Mucous membranes moist. EOMI, PERRLA, bilateral sclera anicteric, no conjunctival injection. Neck supple without JVD, lymphadenopathy, or bruit. Respiratory: clear to ascultation bilaterally. No rales/rhonic/wheezes. Cardiovascular: Regular rate and rhythm, normal S1-S2 upon ascultation. No murmurs, rubs, or clicks. PMI is nondisplaced, capillary refill less than 3 second. Abdomen: Soft, round, no pulsatile masses, nondistended and nontender. No rebound, no guarding. No CVA tenderness, no hepatosplenomegaly. Bowel sounds present to all four quadrants. No high pitch or tinkling sounds, resonant to percussion. Extremities: No cyanosis, clubbing, or edema present. Pulses are palpable 2/2. Active ROM to all four extremities. Neuro: Alert and orientated x 4. PERRLA. Cranial nerves 2-12 intact without focal deficit. Skin: Warm, dry, and intact, without rash, erythema, or lesion. Psych: pleasant, cooperative, normal speech, normal affect, no hallucinations, no dysarthia Objective Data Vital Signs Vital Signs: Vital Signs - 24 hr 07/24/24 10:48 07/24/24 10:54 07/24/24 11:01 Temperature 98.9 F Pulse Rate 66 68 Respiratory Rate 18 21 H Blood Pressure 161/84 H Pulse Oximetry 96 99 92 Oxygen Delivery Room Air 07/24/24 11:02 07/24/24 11:15 07/24/24 11:16 Temperature Pulse Rate 60 58 L 59 L Respiratory Rate 18 19 20 Blood Pressure 124/82 143/77 H Pulse Oximetry 94 Oxygen Delivery 07/24/24 11:32 07/24/24 11:51 07/24/24 12:21 Temperature Pulse Rate 60 59 L Respiratory Rate 20 12 Blood Pressure 120/70 Pulse Oximetry 96 97 Oxygen Delivery 07/24/24 12:22 07/24/24 12:30 07/24/24 12:31 Temperature Pulse Rate 60 56 L 55 L Respiratory Rate 19 15 14 Blood Pressure 128/67 Pulse Oximetry Oxygen Delivery 07/24/24 13:09 07/24/24 13:15 07/24/24 13:30 Temperature Pulse Rate 53 L 56 L 61 Respiratory Rate 15 21 H 17 Blood Pressure Pulse Oximetry 100 Oxygen Delivery 07/24/24 13:31 07/24/24 13:45 07/24/24 13:46 Temperature Pulse Rate 59 L 58 L 58 L Respiratory Rate 14 21 H 17 Blood Pressure 167/86 H 159/86 H Pulse Oximetry 100 96 97 Oxygen Delivery 07/24/24 14:02 07/24/24 14:15 07/24/24 14:16 Temperature Pulse Rate 58 L 57 L 56 L Respiratory Rate 15 15 18 Blood Pressure 155/83 H Pulse Oximetry 97 98 97 Oxygen Delivery 07/24/24 14:30 07/24/24 14:31 07/24/24 14:45 Temperature Pulse Rate 59 L 59 L 57 L Respiratory Rate 19 20 15 Blood Pressure 150/76 H Pulse Oximetry 97 97 97 Oxygen Delivery 07/24/24 14:46 07/24/24 14:47 07/24/24 15:09 Temperature Pulse Rate 60 65 60 Respiratory Rate 20 13 19 Blood Pressure 142/79 H Pulse Oximetry 96 97 97 Oxygen Delivery 07/24/24 15:15 07/24/24 15:16 07/24/24 15:19 Temperature Pulse Rate 56 L 61 60 Respiratory Rate 19 18 17 Blood Pressure 148/78 H Pulse Oximetry 97 96 96 Oxygen Delivery 07/24/24 15:44 07/24/24 15:45 07/24/24 15:46 Temperature Pulse Rate 58 L 56 L 57 L Respiratory Rate 19 18 18 Blood Pressure 147/91 H Pulse Oximetry 97 97 96 Oxygen Delivery 07/24/24 16:00 07/24/24 16:01 07/24/24 16:15 Temperature Pulse Rate 52 L 59 L 57 L Respiratory Rate 21 H 22 H 20 Blood Pressure 134/77 132/72 Pulse Oximetry 100 Oxygen Delivery 07/24/24 16:16 07/24/24 16:35 07/24/24 16:45 Temperature Pulse Rate 56 L 63 60 Respiratory Rate 19 20 18 Blood Pressure 148/84 H Pulse Oximetry Oxygen Delivery 07/24/24 16:46 07/24/24 17:00 07/24/24 17:01 Temperature Pulse Rate 60 64 64 Respiratory Rate 18 16 17 Blood Pressure 137/77 Pulse Oximetry Oxygen Delivery 07/24/24 18:36 07/24/24 20:00 07/24/24 22:00 Temperature 98 F Pulse Rate 60 63 Respiratory Rate 18 18 Blood Pressure 145/90 H 133/70 Pulse Oximetry 98 100 Oxygen Delivery Room Air 07/25/24 00:00 07/25/24 04:00 07/25/24 05:24 Temperature 98.1 F Pulse Rate 68 71 65 Respiratory Rate 18 Blood Pressure 133/69 Pulse Oximetry 100 Oxygen Delivery Intake/Output Intake/Output: Intake & Output 07/22/24 07/23/24 07/25/24 07/25/24 23:59 23:59 00:59 23:59 Intake Total 1050 1336 Balance 1050 1336 Meds/Results Medications: Active Medications Generic Name Dose Route Start Last Admin Trade Name Freq PRN Reason Stop Dose Admin Dextrose 12.5 gm 07/24/24 14:06 Dextrose 50% 25 Gm/50 Ml Syringe IV PUSH PRN PRN Hypoglycemia Protocol Glucagon 1 mg 07/24/24 14:06 Glucagon For Inj 1 Mg Vial IM PRN PRN Hypoglycemia Protocol Glucose 15 gm 07/24/24 14:06 Glucose Oral Gel 15 Gm Of Glucse In 37.5 Gm Tube PO PRN PRN Hypoglycemia Protocol Hydroxyzine HCl 25 mg 07/24/24 21:50 Hydroxyzine Hcl 25 Mg Tablet PO BID PRN anxiety Dextrose 1,000 mls @ 100 mls/hr 07/24/24 14:06 Dextrose 5% 1,000 Ml IVPB PRN PRN Hypoglycemia Protocol Ceftriaxone Sodium 1 gm in 50 mls @ 100 mls/hr 07/24/24 23:00 07/25/24 00:06 Rocephin 1 Gm/Ns 50 Ml IVPB Infused Q24H [facility] Infusion Insulin Aspart 2 - 5 units 07/24/24 17:00 07/25/24 07:45 Insulin Aspart (*Bkc) 100 Units/Ml SUB-Q Not Given TIDWM [facility] Protocol Insulin Aspart 1 - 2 units 07/24/24 21:00 07/24/24 21:37 Insulin Aspart (*Bkc) 100 Units/Ml SUB-Q 1 units HS [facility] Administration Protocol Insulin Glargine 10 units 07/24/24 21:00 07/24/24 21:37 Insulin Glargine (*Bkc) 100 Units/Ml 0.15 units/kg (10 units) 10 units SUB-Q Administration [facility] Lactulose 20 gm 07/25/24 09:00 07/25/24 10:08 Lactulose 20 Gm/30 Ml Udc PO 20 gm TID [facility]ACAN[facility] Administration Nicotine 1 patch 07/25/24 09:00 07/25/24 10:07 Nicotine (*Pbkc) 14 Mg Patch TRANSDERM Not Given DAILY [facility] Rifaximin 550 mg 07/25/24 09:00 07/25/24 10:09 Rifaximin 550 Mg Tablet PO 550 mg BID [facility]ACANO Administration Radiology Results: ITS Impressions Chest X-Ray 07/24/24 11:08 Impression: Clear lungs. Head CT 07/24/24 11:43 Impression: No significant abnormality seen. Labs Labs: Laboratory Results - last 24 hr 07/24/24 07/24/24 07/24/24 11:06 11:07 11:08 WBC 3.9 L RBC 4.20 Hgb 13.7 Hct 40.2 MCV 95.7 MCH 32.6 MCHC 34.1 RDW 15.0 H Plt Count 125 L MPV 10.7 H Immature Gran % (Auto) 0.3 Neut % (Auto) 55.0 Lymph % (Auto) 27.2 [place] % (Auto) 14.4 H Eos % (Auto) 1.8 Baso % (Auto) 1.3 H Lymph # (Auto) 1.06 [place] # (Auto) 0.6 Eos # (Auto) 0.1 Baso # (Auto) 0.1 Abs Immat Gran (auto) 0.01 Absolute Neuts (auto) 2.2 Absolute Nucleated RBC 0.000 Nucleated RBC % 0.0 % Immature Plt Fraction ESR PT 18.2 H INR 1.5 APTT 38.0 H Sodium 141 Potassium 3.5 Chloride 112 H Carbon Dioxide 17 L Anion Gap 12 BUN 8 Creatinine 0.49 L Estim Creat Clear Calc 98 Estimated GFR > 60 Glucose 259 H POC Capillary Glucose Calcium 9.0 Phosphorus Magnesium Total Bilirubin 2.9 H AST 37 H ALT 24 Alkaline Phosphatase 164 H Ammonia Total Creatine Kinase C-Reactive Protein Total Protein 7.0 Albumin 3.5 TSH Urine Color Urine Appearance Urine pH Ur Specific [place] Urine Protein Urine Glucose (UA) Urine Ketones Ur Blood (Man) Urine Nitrate Urine Bilirubin Urine Urobilinogen Leukocyte Esterase Rfl Urine RBC Urine WBC Ur Squamous Epith Cells Urine Bacteria Urine Casts Influenza A (RT-PCR) Negative Influenza B (RT-PCR) Negative RSV (RT-PCR) Negative SARS-CoV-2 RNA (RT-PCR) Negative 07/24/24 07/24/24 07/24/24 11:13 11:29 17:18 WBC RBC Hgb Hct MCV MCH MCHC RDW Plt Count MPV Immature Gran % (Auto) Neut % (Auto) Lymph % (Auto) [place] % (Auto) Eos % (Auto) Baso % (Auto) Lymph # (Auto) [place] # (Auto) Eos # (Auto) Baso # (Auto) Abs Immat Gran (auto) Absolute Neuts (auto) Absolute Nucleated RBC Nucleated RBC % % Immature Plt Fraction ESR PT INR APTT Sodium Potassium Chloride Carbon Dioxide Anion Gap BUN Creatinine Estim Creat Clear Calc Estimated GFR Glucose POC Capillary Glucose 111 H Calcium Phosphorus Magnesium 1.5 L Total Bilirubin AST ALT Alkaline Phosphatase Ammonia 107 H Total Creatine Kinase C-Reactive Protein Total Protein Albumin TSH Urine Color Yellow Urine Appearance Cloudy H Urine pH 6.0 Ur Specific [place] 1.016 Urine Protein Negative Urine Glucose (UA) 1+ H Urine Ketones Negative Ur Blood (Man) Negative Urine Nitrate Positive H Urine Bilirubin Negative Urine Urobilinogen 1.0 Leukocyte Esterase Rfl Negative Urine RBC 0-2 Urine WBC 0-5 Ur Squamous Epith Cells None seen Urine Bacteria 4+ Urine Casts 0-2 Influenza A (RT-PCR) Influenza B (RT-PCR) RSV (RT-PCR) SARS-CoV-2 RNA (RT-PCR) 07/24/24 07/24/24 07/25/24 21:13 22:02 06:11 WBC RBC Hgb Hct MCV MCH MCHC RDW Plt Count MPV Immature Gran % (Auto) Neut % (Auto) Lymph % (Auto) [place] % (Auto) Eos % (Auto) Baso % (Auto) Lymph # (Auto) [place] # (Auto) Eos # (Auto) Baso # (Auto) Abs Immat Gran (auto) Absolute Neuts (auto) Absolute Nucleated RBC Nucleated RBC % % Immature Plt Fraction ESR PT INR APTT 39.0 H Sodium Potassium 3.3 L Chloride Carbon Dioxide Anion Gap BUN Creatinine Estim Creat Clear Calc Estimated GFR Glucose POC Capillary Glucose 219 H Calcium Phosphorus 3.7 Magnesium 1.5 L Total Bilirubin AST ALT Alkaline Phosphatase Ammonia Total Creatine Kinase C-Reactive Protein Total Protein Albumin TSH Urine Color Urine Appearance Urine pH Ur Specific [place] Urine Protein Urine Glucose (UA) Urine Ketones Ur Blood (Man) Urine Nitrate Urine Bilirubin Urine Urobilinogen Leukocyte Esterase Rfl Urine RBC Urine WBC Ur Squamous Epith Cells Urine Bacteria Urine Casts Influenza A (RT-PCR) Influenza B (RT-PCR) RSV (RT-PCR) SARS-CoV-2 RNA (RT-PCR) 07/25/24 07/25/24 06:12 07:32 WBC 4.5 RBC 4.08 L Hgb 13.2 Hct 39.3 MCV 96.3 MCH 32.4 MCHC 33.6 RDW 14.6 H Plt Count 130 L MPV 11.0 H Immature Gran % (Auto) 0.4 Neut % (Auto) 54.8 Lymph % (Auto) 24.3 [place] % (Auto) 17.2 H Eos % (Auto) 2.2 Baso % (Auto) 1.1 Lymph # (Auto) 1.09 [place] # (Auto) 0.8 H Eos # (Auto) 0.1 Baso # (Auto) 0.1 Abs Immat Gran (auto) 0.02 Absolute Neuts (auto) 2.5 Absolute Nucleated RBC 0.000 Nucleated RBC % 0.0 % Immature Plt Fraction 2.0 ESR 20 PT INR APTT Sodium 142 Potassium 3.4 Chloride 112 H Carbon Dioxide 19 L Anion Gap 11 BUN 8 Creatinine 0.61 L Estim Creat Clear Calc 80 Estimated GFR > 60 Glucose 153 H POC Capillary Glucose 156 H Calcium 8.8 Phosphorus 4.2 Magnesium 1.7 Total Bilirubin 2.7 H AST 37 H ALT 23 Alkaline Phosphatase 128 H Ammonia Total Creatine Kinase 28 L C-Reactive Protein 0.5 Total Protein 7.0 Albumin 3.2 L TSH 1.320 Urine Color Urine Appearance Urine pH Ur Specific [place] Urine Protein Urine Glucose (UA) Urine Ketones Ur Blood (Man) Urine Nitrate Urine Bilirubin Urine Urobilinogen Leukocyte Esterase Rfl Urine RBC Urine WBC Ur Squamous Epith Cells Urine Bacteria Urine Casts Influenza A (RT-PCR) Influenza B (RT-PCR) RSV (RT-PCR) SARS-CoV-2 RNA (RT-PCR) Quality VTE Prophylaxis VTE prophylaxis: mechanical ordered
[2024-07-25 11:11] LABS: Add Urine Microscopic? YES; Appearance Urine Cloudy (Clear); Bacteria Urine 4+ /hpf; Bilirubin Urine Negative (Negative); Blood Urine Negative (Negative); Color Urine Yellow (Yellow); Glucose Urine UA Negative (Negative); Ketones Urine Negative (Negative); Leukocyte Esterase Ur 1+ LEU/UL (Negative); Mucus Urine Present /lpf; Need Manual Microscopic Reviewed; Nitrate Urine Positive (Negative); Non Pathogenic Casts 0-2; Protein Urine Negative (Negative); Specific Grav Ur 1.014 (1.001-1.035); Squamous Epithelial Cell Urine Moderate /hpf (Few); Urobilinogen Urine 0.2 mg/dL (<2.0); WBC Urine 0-5 /hpf (0-3); pH Urine 6.5 (5.0-9.0)
[2024-07-25] MEDS: NAPROXEN SODIUM 220 MG TABLET PO (11:12)
[2024-07-25 11:36] LABS: Glucose Point of Care 163 mg/dl (65-105)
[2024-07-25] MEDS: hydrOXYzine HCL 25 MG TABLET PO ×2 (12:10→20:46)
[2024-07-25 16:46] LABS: Glucose Point of Care 106 mg/dl (65-105)
[2024-07-25] MEDS: traZODone HCL 50 MG TABLET PO (20:41)
[2024-07-25] MEDS: MELATONIN 5 MG TABLET 10 MG PO (20:41)
[2024-07-25 21:34] LABS: Glucose Point of Care 119 mg/dl (65-105)
[2024-07-25] MEDS: INSULIN GLARGINE (*BKC) 100 UNITS/ML 10 UNITS SUB-Q (21:43)
[2024-07-26] VITALS (9 sets, daily range): BP systolic 118–143; BP diastolic 64–78; PULSE 56–82; RESP 18; TEMP 36.4–36.9; O2SAT 93–99
--- NOTE | 2024-07-26 07:46 | P.PNIM_ITS ---
Progress Note: A&P Assessment and Plan (1) Hepatic encephalopathy: Code(s): K76.82 - Hepatic encephalopathy Status: Acute Assessment and Plan: ## chronic alcohol induced cirrhosis of the liver Ammonia level - 107 -->Secondary to not taking lactulose -Restart lactulose goal of 3 bowel movements per day -Neurochecks per order -trend Ammonia -->107--> 97 -Pt/OT evaluation and treatment planning. (2) Hypomagnesemia: Code(s): E83.42 - Hypomagnesemia Status: Acute Assessment and Plan: Replace electrolytes as needed trend Magnesium -->1.5--1.7 (3) QT prolongation: Code(s): R94.31 - Abnormal electrocardiogram [ECG] [EKG] Status: Acute Assessment and Plan: - Avoid QTC prolongation medications --> research quality assurance specialist - consider Cardiology consultation (4) Thrombocytopenia: Code(s): D69.6 - Thrombocytopenia, unspecified Status: Acute Assessment and Plan: ##Chronic due to alcoholic cirrhosis --> PT/INR stable, --> trend CBC daily - monitor for bleeding (5) Coagulopathy: Code(s): D68.9 - Coagulation defect, unspecified Status: Acute Assessment and Plan: -->PTT in a.m. - monitor for bleeding --> No signs of acute bleeding at this time (6) Diabetes mellitus: Qualifiers: Diabetes mellitus complication status: with hyperglycemia Diabetes mellitus termite renewal inspector insulin use: without long-term use Diabetes mellitus type: type 2 Qualified Code(s): E11.65 - Type 2 diabetes mellitus with hyperglycemia Code(s): E11.9 - Type 2 diabetes mellitus without complications Status: Chronic Assessment and Plan: ##chronic - HgA1c 07/08/24 -- 4.8 --Diabetic diet --Accu-Cheks a.c. HS --SSI (7) Alcoholic cirrhosis: Qualifiers: Ascites presence: unspecified Qualified Code(s): K70.30 - Alcoholic cirrhosis of liver without ascites Code(s): K70.30 - Alcoholic cirrhosis of liver without ascites Status: Acute Assessment and Plan: ##Patient reports sobriety --> Monitor for alcohol withdrawal (8) UTI (urinary tract infection): Qualifiers: Hematuria presence: without hematuria Urinary tract infection type: acute cystitis Qualified Code(s): N30.00 - Acute cystitis without hematuria Code(s): N39.0 - Urinary tract infection, site not specified Status: Acute Assessment and Plan: 1+ glucose, positive nitrates, 1+ leukocytes, negative bilirubin, 3-5 red blood cells, 4+ bacteria --> grew ESBL 3 weeks prior to this hospitalization and urine --> stop Rocephin IV, start Macrobid twice daily p.o. for 5 days (covered ESBL) (9) Butterfly rash: Code(s): R21 - Rash and other nonspecific skin eruption Status: Acute Assessment and Plan: --> TSH, ESR, CK, CRP, AIRAM -no signs of abnormality as of yet, some still pending (10) Hypokalemia: Code(s): E87.6 - Hypokalemia Status: Acute Assessment and Plan: Currently stable, --Replete as needed --Daily CMP Plan Will continue current plan, monitor patient closely PT and OT evaluation ordered today Time Spent With Patient Time with patient: Greater than 35 minutes (40 minutes) Subjective Date/time seen: 07/26/24 07:46 Interval history: Altered mental status 49-year-old female who was recently hospitalized with a UTI presents the hospital with altered mental status. Due to severe diarrhea on discharge she did stop taking her lactulose. Patient states that she is confused and feels weird. She states she thinks she has started lactulose again yesterday. Patient also complains of rash on her face. In the ED patient has leukopenia at 3.9, platelet count of 125, INR of 1.5 carbon dioxide of 17, glucose of 259, magnesium of 1.5, total bili of 2.9, AST of 37, alkaline phos of 164, ammonia of 107. UA is cloudy with positive nitrates. Head CT shows no acute findings. Chest x-ray is unremarkable. EKG shows sinus rhythm rate of 63, QTC of 505. 07/25 pt is seen and examined. c/o headache. Having BMs now. feeling better. requesting melatonin and 50 mg trazadone restarted at night to help her sleep. Eating and drinking well. 07/26-patient reports she did try to get up and walk however she felt very weak. States that she has not seen anybody to help her walk yet. She states she is having some bowel movements and she is agreeing to take her lactulose as scheduled. She denies any headache, dizziness she denies any dysuria or frequency. She denies any abdominal pain, she denies any nausea, vomiting diarrhea. Patient did have history of ESBL in her urine 3 weeks prior to this admission, urine culture note g negative rods. Review of Systems Review of Systems: 12 systems were reviewed and are negativ e except for as per HPI. Exam Narrative: General: well appearing, appears stated age. HEENT: Butterfly rash normocephalic, atraumatic. Mucous membranes moist. EOMI, PERRLA, bilateral sclera anicteric, no conjunctival injection. Neck supple without JVD, lymphadenopathy, or bruit. Respiratory: clear to ascultation bilaterally. No rales/rhonic/wheezes. Cardiovascular: Regular rate and rhythm, normal S1-S2 upon ascultation. No murmurs, rubs, or clicks. PMI is nondisplaced, capillary refill less than 3 second. Abdomen: Soft, round, no pulsatile masses, nondistended and nontender. No rebound, no guarding. No CVA tenderness, no hepatosplenomegaly. Bowel sounds present to all four quadrants. No high pitch or tinkling sounds, resonant to percussion. Extremities: No cyanosis, clubbing, or edema present. Pulses are palpable 2/2. Active ROM to all four extremities. Neuro: Alert and orientated x 4. PERRLA. Cranial nerves 2-12 intact without focal deficit. Skin: Warm, dry, and intact, without rash, erythema, or lesion. Jaundiced in coloration. Psych: pleasant, cooperative, normal speech, normal affect, no hallucinations, no dysarthia Objective Data Vital Signs Vital Signs: Vital Signs - 24 hr 07/25/24 08:00 07/25/24 12:00 07/25/24 13:53 Temperature 98.2 F Pulse Rate 66 74 56 L Respiratory Rate 24 H Blood Pressure 128/64 Pulse Oximetry 100 Oxygen Delivery 07/25/24 16:00 07/25/24 20:00 07/25/24 20:00 Temperature Pulse Rate 58 L 75 68 Respiratory Rate 18 Blood Pressure Pulse Oximetry 98 Oxygen Delivery Room Air 07/25/24 22:00 07/26/24 00:00 07/26/24 04:00 Temperature 97.6 F Pulse Rate 75 57 L 68 Respiratory Rate 18 Blood Pressure 134/66 Pulse Oximetry 98 Oxygen Delivery 07/26/24 06:00 Temperature 97.5 F L Pulse Rate 74 Respiratory Rate 18 Blood Pressure 129/65 Pulse Oximetry 99 Oxygen Delivery Intake/Output Intake/Output: Intake & Output 07/23/24 07/25/24 07/25/24 07/26/24 23:59 00:59 23:59 23:59 Intake Total 1052051 Balance 1052051 Meds/Results Medications: Active Medications Generic Name Dose Route Start Last Admin Trade Name Freq PRN Reason Stop Dose Admin Dextrose 12.5 gm 07/24/24 14:06 Dextrose 50% 25 Gm/50 Ml Syringe IV PUSH PRN PRN Hypoglycemia Protocol Glucagon 1 mg 07/24/24 14:06 Glucagon For Inj 1 Mg Vial IM PRN PRN Hypoglycemia Protocol Glucose 15 gm 07/24/24 14:06 Glucose Oral Gel 15 Gm Of Glucse In 37.5 Gm Tube PO PRN PRN Hypoglycemia Protocol Hydroxyzine HCl 25 mg 07/24/24 21:50 07/25/24 20:46 Hydroxyzine Hcl 25 Mg Tablet PO 25 mg BID PRN Administration anxiety Dextrose 1,000 mls @ 100 mls/hr 07/24/24 14:06 Dextrose 5% 1,000 Ml IVPB PRN PRN Hypoglycemia Protocol Ceftriaxone Sodium 1 gm in 50 mls @ 100 mls/hr 07/24/24 23:00 07/25/24 22:47 Rocephin 1 Gm/Ns 50 Ml IVPB 100 mls/hr Q24H MICHOACANO Administration Insulin Aspart 2 - 5 units 07/24/24 17:00 07/25/24 16:54 Insulin Aspart (*Bkc) 100 Units/Ml SUB-Q Not Given TIDWM ON LICENSE OF [facility] Protocol Insulin Aspart 1 - 2 units 07/24/24 21:00 07/25/24 21:40 Insulin Aspart (*Bkc) 100 Units/Ml SUB-Q Not Given HS ON LICENSE OF [facility] Protocol Insulin Glargine 10 units 07/24/24 21:00 07/25/24 21:43 Insulin Glargine (*Bkc) 100 Units/Ml 0.15 units/kg (10 units) 10 units SUB-Q Administration HS ON LICENSE OF [facility] Lactulose 20 gm 07/25/24 09:00 07/25/24 16:58 Lactulose 20 Gm/30 Ml Udc PO 20 gm TID MICHOACANO Administration Melatonin 10 mg 07/25/24 21:00 07/25/24 20:41 Melatonin 5 Mg Tablet PO 10 mg HS MICHOACANO Administration Naproxen 220 mg 07/25/24 10:43 07/25/24 11:12 Naproxen Sodium 220 Mg Tablet PO 220 mg BIDWM PRN Administration headache Nicotine 1 patch 07/25/24 09:00 07/25/24 10:07 Nicotine (*Pbkc) 14 Mg Patch TRANSDERM Not Given DAILY MICHOACANO Pantoprazole Sodium 40 mg 07/26/24 09:00 Pantoprazole 40 Mg Tablet PO QAM MICHOACANO Rifaximin 550 mg 07/25/24 09:00 07/25/24 16:58 Rifaximin 550 Mg Tablet PO 550 mg BID MICHOACANO Administration Trazodone HCl 50 mg 07/25/24 21:00 07/25/24 20:41 Trazodone Hcl 50 Mg Tablet PO 50 mg HS MICHOACANO Administration Radiology Results: ITS Impressions Chest X-Ray 07/24/24 11:08 Impression: Clear lungs. Head CT 07/24/24 11:43 Impression: No significant abnormality seen. Labs Labs: Laboratory Results - last 24 hr 07/25/24 07/25/24 07/25/24 06:12 10:36 11:22 WBC 4.5 RBC 4.08 L Hgb 13.2 Hct 39.3 MCV 96.3 MCH 32.4 MCHC 33.6 RDW 14.6 H Plt Count 130 L MPV 11.0 H Immature Gran % (Auto) 0.4 Neut % (Auto) 54.8 Lymph % (Auto) 24.3 [place] % (Auto) 17.2 H Eos % (Auto) 2.2 Baso % (Auto) 1.1 Lymph # (Auto) 1.09 [place] # (Auto) 0.8 H Eos # (Auto) 0.1 Baso # (Auto) 0.1 Abs Immat Gran (auto) 0.02 Absolute Neuts (auto) 2.5 Absolute Nucleated RBC 0.000 Nucleated RBC % 0.0 % Immature Plt Fraction 2.0 ESR 20 POC Capillary Glucose 163 H Urine Color Yellow Urine Appearance Cloudy H Urine pH 6.5 Ur Specific [place] 1.014 Urine Protein Negative Urine Glucose (UA) Negative Urine Ketones Negative Ur Blood (Man) Negative Urine Nitrate Positive Urine Bilirubin Negative Urine Urobilinogen 0.2 Ur Leukocyte Esterase 1+ H Add Ur Microanalysis Reviewed Urine RBC 3-5 H Urine WBC 0-5 Ur Squamous Epith Cells Moderate Urine Bacteria 4+ H Urine Casts 0-2 Urine Mucus Present 07/25/24 07/25/24 16:42 21:32 WBC RBC Hgb Hct MCV MCH MCHC RDW Plt Count MPV Immature Gran % (Auto) Neut % (Auto) Lymph % (Auto) [place] % (Auto) Eos % (Auto) Baso % (Auto) Lymph # (Auto) [place] # (Auto) Eos # (Auto) Baso # (Auto) Abs Immat Gran (auto) Absolute Neuts (auto) Absolute Nucleated RBC Nucleated RBC % % Immature Plt Fraction ESR POC Capillary Glucose 106 H 119 H Urine Color Urine Appearance Urine pH Ur Specific [place] Urine Protein Urine Glucose (UA) Urine Ketones Ur Blood (Man) Urine Nitrate Urine Bilirubin Urine Urobilinogen Ur Leukocyte Esterase Add Ur Microanalysis Urine RBC Urine WBC Ur Squamous Epith Cells Urine Bacteria Urine Casts Urine Mucus Quality VTE Prophylaxis VTE prophylaxis: mechanical ordered Hospitalist [facility] Advance Care Plan I have confirmed that the patient's Advanced Care Plan is present, code status is documented, or surrogate decision maker is listed in patient medical record.: Yes Medication Reconciliation I have utilized all available resources to obtain, update and review the patients current medications (includes all prescriptions, OTC, herbals, cannabis, and nutritional supplements).: Yes
[2024-07-26 07:54] LABS: Glucose Point of Care 207 mg/dl (65-105)
[2024-07-26 08:34] LABS: Basophils Percent Auto 0.7 % (0.2-1.2); Eosinophils Absolute Auto 0.2 K/mm3 (0-0.3); Eosinophils Percent Auto 3.3 % (0-4.4); Hemoglobin 13.6 g/dL (12.0-15.0); Immature Granulocyte Absolute 0.03 K/mm3 (0.00-0.031); Immature Granulocyte Percent A 0.6 % (0-0.5); Immature Platelet Fraction Pct 2.5 % (0.9-11.2); Lymphocytes Percent Auto 23.9 % (18.3-44.2); Mean Corpuscular Hemoglobin 32.5 pg (26-34); Mean Corpuscular Volume 95.7 fl (80-100); Mean Platelet Volume 10.4 fl (7.4-10.4); Monocytes Absolute Auto 0.6 K/mm3 (0.1-0.6); Monocytes Percent Auto 10.3 % (2.6-8.5); Neutrophils Absolute Auto 3.3 K/mm3 (1.3-6.7); Neutrophils Percent Auto 61.2 % (45.5-73.1); Platelet Count Result 111 k/mm3 (150-375); Red Blood Count 4.18 M/mm3 (4.2-5.4); Red Cell Distribution Width 14.6 % (11.5-14.5); White Blood Count 5.4 K/mm3 (4.5-10.0)
[2024-07-26 08:43] LABS: Alanine Aminotransferase 24 U/L (6-35); Albumin Level 3.2 g/dL (3.5-5.1); Alkaline Phosphatase 161 U/L (38-126); Anion Gap 10 mmol/L (4-12); Aspartate Amino Transferase 39 U/L (14-36); Bilirubin,Total 2.5 mg/dL (0.2-1.3); Blood Urea Nitrogen 10 mg/dL (7-17); Calcium 8.3 mg/dL (8.4-10.2); Carbon Dioxide 19 mmol/L (22-30); Chloride 109 mmol/L (98-107); Estimated CRCL calculation 90 ml/min; Estimated Glomerular Filt Rate > 60; Glucose 223 mg/dL (65-110); Potassium 3.4 mmol/L (3.4-5.0); Sodium 138 mmol/L (137-145)
[2024-07-26 08:53] LABS: Ammonia 97 umol/L (9-30); INR 1.4; Prothrombin Time 17.9 Seconds (11.1-14.7)
[2024-07-26] MEDS: LACTULOSE 20 GM/30 ML UDC PO ×3 (09:43→18:26)
[2024-07-26] MEDS: rifAXIMin 550 MG TABLET PO ×2 (09:45→18:26)
[2024-07-26] MEDS: INSULIN ASPART (*BKC) 100 UNITS/ML SUB-Q ×2 (09:45→12:10)
[2024-07-26] MEDS: PANTOPRAZOLE 40 MG TABLET PO (09:45)
[2024-07-26 11:41] LABS: Glucose Point of Care 209 mg/dl (65-105)
[2024-07-26] MEDS: hydrOXYzine HCL 25 MG TABLET PO ×2 (12:10→21:44)
[2024-07-26] MEDS: NITROFURANTOIN MONOHYD MACROCR 100 MG CAP PO ×2 (12:11→21:45)
[2024-07-26 16:25] LABS: Glucose Point of Care 108 mg/dl (65-105)
[2024-07-26 20:13] LABS: Glucose Point of Care 123 mg/dl (65-105)
[2024-07-26] MEDS: MELATONIN 5 MG TABLET 10 MG PO (21:44)
[2024-07-26] MEDS: traZODone HCL 50 MG TABLET PO (21:45)
[2024-07-26] MEDS: INSULIN GLARGINE (*BKC) 100 UNITS/ML 10 UNITS SUB-Q (21:46)
[2024-07-27] VITALS (9 sets, daily range): BP systolic 110–127; BP diastolic 61–69; PULSE 55–76; RESP 16; TEMP 36.6–36.8; O2SAT 91–94
[2024-07-27 06:19] LABS: Ammonia 62 umol/L (9-30)
[2024-07-27 06:20] LABS: Alanine Aminotransferase 22 U/L (6-35); Albumin Level 2.9 g/dL (3.5-5.1); Alkaline Phosphatase 137 U/L (38-126); Anion Gap 7 mmol/L (4-12); Aspartate Amino Transferase 37 U/L (14-36); Bilirubin,Total 2.2 mg/dL (0.2-1.3); Blood Urea Nitrogen 9 mg/dL (7-17); Calcium 8.6 mg/dL (8.4-10.2); Carbon Dioxide 21 mmol/L (22-30); Chloride 109 mmol/L (98-107); Estimated CRCL calculation 93 ml/min; Estimated Glomerular Filt Rate > 60; Glucose 150 mg/dL (65-110); Potassium 3.3 mmol/L (3.4-5.0); Sodium 137 mmol/L (137-145)
--- NOTE | 2024-07-27 07:40 | ECG_ITS ---
Test Date: 2024-07-27 07:55:02 Measurements Intervals [place] Rate: 58 P: -2 ME: 154 QRS: 5 QRSD: 96 T: 12 QT: 481 QTc: 473 Interpretive Statements SINUS BRADYCARDIA WITH MARKED SINUS ARRHYTHMIA LOW QRS VOLTAGE IN EXTREMITY LEADS [QRS DEFLECTION < 0.5 mV IN LIMB LEADS] PROLONGED QT INTERVAL Compared to ECG 07/24/2024 10:52:02 NO SIGNIFICANT CHANGES Electronically Signed On 07-27-2024 13:41:52 CDT by Marc Fontanez M.D.
[2024-07-27] MEDS: INSULIN ASPART (*BKC) 100 UNITS/ML SUB-Q (08:00)
[2024-07-27] MEDS: PANTOPRAZOLE 40 MG TABLET PO (08:01)
[2024-07-27] MEDS: NITROFURANTOIN MONOHYD MACROCR 100 MG CAP PO ×2 (08:01→20:57)
[2024-07-27] MEDS: LACTULOSE 20 GM/30 ML UDC PO ×3 (08:01→16:14)
[2024-07-27] MEDS: hydrOXYzine HCL 25 MG TABLET PO ×2 (08:01→20:56)
[2024-07-27] MEDS: rifAXIMin 550 MG TABLET PO ×2 (08:01→16:14)
[2024-07-27 08:05] LABS: Glucose Point of Care 232 mg/dl (65-105)
[2024-07-27] MEDS: POTASSIUM CHLORIDE 20 MEQ ER TABLET 40 MEQ PO (08:36)
[2024-07-27 09:36] LABS: Magnesium 1.3 mg/dL (1.6-2.3)
[2024-07-27] MEDS: MAGNESIUM SULFATE 3GM/D5W100ML 3 GM/100 ML BAG IVPB (10:25)
--- NOTE | 2024-07-27 11:09 | P.PNIM_ITS ---
Progress Note: A&P Assessment and Plan (1) Hepatic encephalopathy: Code(s): K76.82 - Hepatic encephalopathy Status: Acute Assessment and Plan: ## chronic alcohol induced cirrhosis of the liver Ammonia level - 107 -->Secondary to not taking lactulose -Restart lactulose goal of 3 bowel movements per day -Neurochecks per order -trend Ammonia -->107--> 97--> 62. -PT/OT evaluation and treatment planning. (2) Hypomagnesemia: Code(s): E83.42 - Hypomagnesemia Status: Acute Assessment and Plan: -Replace electrolytes as needed -trend Magnesium -->1.5-->--1.7-->1.3. -Magnesium Sulfate 3 gram IVPB x1. -Monitor magnesium levels. (3) QT prolongation: Code(s): R94.31 - Abnormal electrocardiogram [ECG] [EKG] Status: Acute Assessment and Plan: - Avoid QTC prolongation medications --> equipment monitor phototypesetting - consider Cardiology consultation - ECG this morning showed Sinus bradycardia 58 with QTc 473. Prior QTc 505. (4) Thrombocytopenia: Code(s): D69.6 - Thrombocytopenia, unspecified Status: Acute Assessment and Plan: ##Chronic due to alcoholic cirrhosis --> PT/INR stable, --> trend CBC daily - monitor for bleeding (5) Coagulopathy: Code(s): D68.9 - Coagulation defect, unspecified Status: Acute Assessment and Plan: -->PTT in a.m. - monitor for bleeding --> No signs of acute bleeding at this time (6) Diabetes mellitus: Qualifiers: Diabetes mellitus type: type 2 Diabetes mellitus halfway insulin use: without halfway use Diabetes mellitus complication status: with hyperglycemia Qualified Code(s): E11.65 - Type 2 diabetes mellitus with hyperglycemia Code(s): E11.9 - Type 2 diabetes mellitus without complications Status: Chronic Assessment and Plan: ##chronic - HgA1c 07/08/24 -- 4.8 --Diabetic diet --Accu-Cheks a.c. HS --SSI (7) Alcoholic cirrhosis: Qualifiers: Ascites presence: unspecified Qualified Code(s): K70.30 - Alcoholic cirrhosis of liver without ascites Code(s): K70.30 - Alcoholic cirrhosis of liver without ascites Status: Acute Assessment and Plan: ##Patient reports sobriety --> Monitor for alcohol withdrawal (8) UTI (urinary tract infection): Qualifiers: Hematuria presence: without hematuria Urinary tract infection type: acute cystitis Qualified Code(s): N30.00 - Acute cystitis without hematuria Code(s): N39.0 - Urinary tract infection, site not specified Status: Acute Assessment and Plan: 1+ glucose, positive nitrates, 1+ leukocytes, negative bilirubin, 3-5 red blood cells, 4+ bacteria --> grew ESBL 3 weeks prior to this hospitalization and urine --> stop Rocephin IV, start Macrobid twice daily p.o. for 5 days (covered ESBL) (9) Butterfly rash: Code(s): R21 - Rash and other nonspecific skin eruption Status: Acute Assessment and Plan: --> TSH 1.320, ESR 20, CK 28, CRP 0.5, AIRAM- pending. (10) Hypokalemia: Code(s): E87.6 - Hypokalemia Status: Acute Assessment and Plan: --Potassium 3.3. --Potassium Chloride 40 meq PO x1. --Replete as needed --Daily CMP Plan y Subjective Date/time seen: 07/27/24 11:09 Interval history: Patient denies chest pain, shortness of breath, headache, dizziness, nausea, or vomiting. Patient reports having a few palpitations earlier this morning. Patient stating she has a friend that has had his liver drained and wandering if she should have hers drained. Nursing reported that on telemetry patient heart rate dropped into the 30's. A telemetry patch was on stomach. ECG this morning showed Sinus bradycardia 58 with QTc 473. Prior QTc 505. Patient denied any symptoms at that time when checked on and was sitting up in the bed. Review of Systems Review of Systems: All systems reviewed & are unremarkable except as noted in HPI and below Exam Const: General: comfortable and no acute distress Resp: Effort & Inspection: normal respiratory effort Auscultation: clear to auscultation bilaterally Cardio: Rate: regular rate Rhythm: regular rhythm Other: Telemetry- SR 63. GI: GI Palp: Yes Soft to palpation Auscultation: normal bowel sounds Neuro: Speech: normal speech Extrem: General: no pedal edema Psych: Mental Status: mental status grossly normal Affect: normal affect Objective Data Vital Signs Vital Signs: Vital Signs - 24 hr 07/26/24 12:03 07/26/24 13:59 07/26/24 16:01 Temperature 98.2 F Pulse Rate 82 65 56 L Respiratory Rate 18 Blood Pressure 143/78 H Pulse Oximetry 93 Oxygen Delivery 07/26/24 20:00 07/26/24 20:54 07/27/24 00:00 Temperature 98.4 F Pulse Rate 56 L 63 67 Respiratory Rate 18 Blood Pressure 118/64 Pulse Oximetry 93 Oxygen Delivery 07/27/24 04:00 07/27/24 05:23 07/27/24 08:00 Temperature 97.8 F Pulse Rate 61 55 L Respiratory Rate 16 Blood Pressure 110/61 Pulse Oximetry 91 Oxygen Delivery Room Air 07/27/24 08:00 Temperature Pulse Rate 66 Respiratory Rate Blood Pressure Pulse Oximetry Oxygen Delivery Intake/Output Intake/Output: Intake & Output 07/25/24 07/25/24 07/26/24 07/27/24 00:59 23:59 23:59 23:59 Intake Total 1050 2052 720 358 Balance 1050 2052 720 358 Meds/Results Medications: Active Medications Generic Name Dose Route Start Last Admin Trade Name Freq PRN Reason Stop Dose Admin Dextrose 12.5 gm 07/24/24 14:06 Dextrose 50% 25 Gm/50 Ml Syringe IV PUSH PRN PRN Hypoglycemia Protocol Glucagon 1 mg 07/24/24 14:06 Glucagon For Inj 1 Mg Vial IM PRN PRN Hypoglycemia Protocol Glucose 15 gm 07/24/24 14:06 Glucose Oral Gel 15 Gm Of Glucse In 37.5 Gm Tube PO PRN PRN Hypoglycemia Protocol Hydroxyzine HCl 25 mg 07/24/24 21:50 07/27/24 08:01 Hydroxyzine Hcl 25 Mg Tablet PO 25 mg BID PRN Administration anxiety Dextrose 1,000 mls @ 100 mls/hr 07/24/24 14:06 Dextrose 5% 1,000 Ml IVPB PRN PRN Hypoglycemia Protocol Magnesium Sulfate/Dextrose 3 gm in 100 mls @ 33.333 mls/hr 07/27/24 10:07 07/27/24 10:25 Magnesium Sulfate 3gm/[id number] IVPB 07/27/24 13:06 25 mls/hr ONCE ONE Administration Insulin Aspart 2 - 5 units 07/24/24 17:00 07/27/24 08:00 Insulin Aspart (*Bkc) 100 Units/Ml SUB-Q 2 units TIDWM [facility] Administration Protocol Insulin Aspart 1 - 2 units 07/24/24 21:00 07/26/24 21:49 Insulin Aspart (*Bkc) 100 Units/Ml SUB-Q Not Given HS [facility] Protocol Insulin Glargine 10 units 07/24/24 21:00 07/26/24 21:46 Insulin Glargine (*Bkc) 100 Units/Ml 0.15 units/kg (10 units) 10 units SUB-Q Administration HS [facility] Lactulose 20 gm 07/25/24 09:00 07/27/24 08:01 Lactulose 20 Gm/30 Ml Udc PO 20 gm TID MICHOACANO Administration Melatonin 10 mg 07/25/24 21:00 07/26/24 21:44 Melatonin 5 Mg Tablet PO 10 mg HS MICHOACANO Administration Naproxen 220 mg 07/25/24 10:43 07/25/24 11:12 Naproxen Sodium 220 Mg Tablet PO 220 mg BIDWM PRN Administration headache Nicotine 1 patch 07/25/24 09:00 07/27/24 08:01 Nicotine (*Pbkc) 14 Mg Patch TRANSDERM Not Given DAILY [facility] Nitrofurantoin Macrocrystals 100 mg 07/26/24 10:55 07/27/24 08:01 Nitrofurantoin Monohyd Macrocr 100 Mg Cap PO 07/30/24 21:01 100 mg Q12HR MICHOACANO Administration Pantoprazole Sodium 40 mg 07/26/24 09:00 07/27/24 08:01 Pantoprazole 40 Mg Tablet PO 40 mg QAM MICHOACANO Administration Rifaximin 550 mg 07/25/24 09:00 07/27/24 08:01 Rifaximin 550 Mg Tablet PO 550 mg BID MICHOACANO Administration Trazodone HCl 50 mg 07/25/24 21:00 07/26/24 21:45 Trazodone Hcl 50 Mg Tablet PO 50 mg HS MICHOACANO Administration Radiology Results: ITS Impressions Chest X-Ray 07/24/24 11:08 Impression: Clear lungs. Head CT 07/24/24 11:43 Impression: No significant abnormality seen. Labs Labs: Laboratory Results - last 24 hr 07/26/24 07/26/24 07/26/24 11:29 16:15 19:44 Sodium Potassium Chloride Carbon Dioxide Anion Gap BUN Creatinine Estim Creat Clear Calc Estimated GFR Glucose POC Capillary Glucose 209 H 108 H 123 H Calcium Magnesium Total Bilirubin AST ALT Alkaline Phosphatase Ammonia Total Protein Albumin 07/27/24 07/27/24 07/27/24 06:01 06:03 07:52 Sodium 137 Potassium 3.3 L Chloride 109 H Carbon Dioxide 21 L Anion Gap 7 BUN 9 Creatinine 0.52 L Estim Creat Clear Calc 93 Estimated GFR > 60 Glucose 150 H POC Capillary Glucose 232 H Calcium 8.6 Magnesium 1.3 L Total Bilirubin 2.2 H AST 37 H ALT 22 Alkaline Phosphatase 137 H Ammonia 62 H Total Protein 6.0 L Albumin 2.9 L Quality VTE Prophylaxis VTE prophylaxis: mechanical ordered
[2024-07-27 11:32] LABS: Basophils Absolute Auto 0.1 K/mm3 (0.0-0.1); Basophils Percent Auto 1.3 % (0.2-1.2); Eosinophils Absolute Auto 0.2 K/mm3 (0-0.3); Hemoglobin 12.6 g/dL (12.0-15.0); Immature Granulocyte Absolute 0.01 K/mm3 (0.00-0.031); Immature Granulocyte Percent A 0.3 % (0-0.5); Lymphocytes Percent Auto 31.6 % (18.3-44.2); Mean Corpuscular HGB Conc 34.1 g/dl (32-36); Mean Corpuscular Hemoglobin 33.2 pg (26-34); Mean Corpuscular Volume 97.4 fl (80-100); Mean Platelet Volume 10.9 fl (7.4-10.4); Monocytes Absolute Auto 0.5 K/mm3 (0.1-0.6); Monocytes Percent Auto 13.7 % (2.6-8.5); Neutrophils Absolute Auto 1.8 K/mm3 (1.3-6.7); Neutrophils Percent Auto 48.1 % (45.5-73.1); Platelet Count Result 102 k/mm3 (150-375); Red Cell Distribution Width 14.6 % (11.5-14.5); White Blood Count 3.8 K/mm3 (4.5-10.0)
[2024-07-27 12:16] LABS: Glucose Point of Care 141 mg/dl (65-105)
[2024-07-27 16:46] LABS: Glucose Point of Care 195 mg/dl (65-105)
[2024-07-27 20:14] LABS: Glucose Point of Care 151 mg/dl (65-105)
[2024-07-27] MEDS: traZODone HCL 50 MG TABLET PO (20:56)
[2024-07-27] MEDS: MELATONIN 5 MG TABLET 10 MG PO (20:56)
[2024-07-27] MEDS: INSULIN GLARGINE (*BKC) 100 UNITS/ML 10 UNITS SUB-Q (20:57)
[2024-07-28] VITALS (7 sets, daily range): BP systolic 129–138; BP diastolic 68–72; PULSE 61–70; RESP 16–20; TEMP 36.6–37.3; O2SAT 93
[2024-07-28 06:05] LABS: Basophils Percent Auto 1.1 % (0.2-1.2); Eosinophils Absolute Auto 0.2 K/mm3 (0-0.3); Eosinophils Percent Auto 4.7 % (0-4.4); Hemoglobin 12.6 g/dL (12.0-15.0); Immature Granulocyte Absolute 0.01 K/mm3 (0.00-0.031); Immature Granulocyte Percent A 0.3 % (0-0.5); Lymphocytes Percent Auto 30.7 % (18.3-44.2); Mean Corpuscular HGB Conc 34.1 g/dl (32-36); Mean Corpuscular Hemoglobin 32.9 pg (26-34); Mean Corpuscular Volume 96.6 fl (80-100); Mean Platelet Volume 10.5 fl (7.4-10.4); Monocytes Absolute Auto 0.5 K/mm3 (0.1-0.6); Monocytes Percent Auto 14.8 % (2.6-8.5); Neutrophils Absolute Auto 1.7 K/mm3 (1.3-6.7); Neutrophils Percent Auto 48.4 % (45.5-73.1); Platelet Count Result 104 k/mm3 (150-375); Red Blood Count 3.83 M/mm3 (4.2-5.4); Red Cell Distribution Width 14.6 % (11.5-14.5); White Blood Count 3.6 K/mm3 (4.5-10.0)
[2024-07-28 06:10] LABS: Ammonia 58 umol/L (9-30)
[2024-07-28 06:20] LABS: Alanine Aminotransferase 22 U/L (6-35); Albumin Level 2.9 g/dL (3.5-5.1); Alkaline Phosphatase 141 U/L (38-126); Anion Gap 7 mmol/L (4-12); Aspartate Amino Transferase 38 U/L (14-36); Bilirubin,Total 2.2 mg/dL (0.2-1.3); Blood Urea Nitrogen 8 mg/dL (7-17); Calcium 8.5 mg/dL (8.4-10.2); Carbon Dioxide 20 mmol/L (22-30); Chloride 110 mmol/L (98-107); Estimated CRCL calculation 98 ml/min; Estimated Glomerular Filt Rate > 60; Glucose 214 mg/dL (65-110); Magnesium 1.3 mg/dL (1.6-2.3); Potassium 3.3 mmol/L (3.4-5.0); Sodium 137 mmol/L (137-145)
[2024-07-28] MEDS: NITROFURANTOIN MONOHYD MACROCR 100 MG CAP PO ×2 (07:25→21:59)
[2024-07-28] MEDS: LACTULOSE 20 GM/30 ML UDC PO ×3 (07:25→17:14)
[2024-07-28] MEDS: PANTOPRAZOLE 40 MG TABLET PO (07:25)
[2024-07-28] MEDS: rifAXIMin 550 MG TABLET PO ×2 (07:25→17:14)
[2024-07-28] MEDS: MAGNESIUM SULF 2 GM/WATER 50ML 2 GM/50 ML BAG IVPB (07:25)
[2024-07-28] MEDS: hydrOXYzine HCL 25 MG TABLET PO ×2 (07:25→21:58)
[2024-07-28 07:55] LABS: Glucose Point of Care 130 mg/dl (65-105)
--- NOTE | 2024-07-28 10:19 | P.PNIM_ITS ---
Progress Note: A&P Assessment and Plan (1) Hepatic encephalopathy: Code(s): K76.82 - Hepatic encephalopathy Status: Acute Assessment and Plan: ## chronic alcohol induced cirrhosis of the liver Ammonia level - 107 -->Secondary to not taking lactulose -Restart lactulose goal of 3 bowel movements per day -Neurochecks per order -trend Ammonia -->107--> 97--> 62. -PT/OT evaluation and treatment planning. 07/28/24: * Ammonia today is 58, continuing to trend down. (2) Hypomagnesemia: Code(s): E83.42 - Hypomagnesemia Status: Acute Assessment and Plan: -Replace electrolytes as needed -trend Magnesium -->1.5-->--1.7-->1.3. -Magnesium Sulfate 3 gram IVPB x1. -Monitor magnesium levels. 07/28/24: * Repeat Magnesium today is still low at 1.3. 2G rider ordered. * Continue to trend. (3) QT prolongation: Code(s): R94.31 - Abnormal electrocardiogram [ECG] [EKG] Status: Acute Assessment and Plan: - Avoid QTC prolongation medications --> satellite project site monitor - consider Cardiology consultation - ECG this morning showed Sinus bradycardia 58 with QTc 473. Prior QTc 505. 07/28/24: * Pulse remains stable today in the 60s. (4) Thrombocytopenia: Code(s): D69.6 - Thrombocytopenia, unspecified Status: Acute Assessment and Plan: ##Chronic due to alcoholic cirrhosis --> PT/INR stable, --> trend CBC daily - monitor for bleeding 07/28/24: * Platelets remain stable today at 104. No S/S of acute bleeding. * Likely secondary to liver disease (5) Coagulopathy: Code(s): D68.9 - Coagulation defect, unspecified Status: Acute Assessment and Plan: -->PTT in a.m. - monitor for bleeding --> No signs of acute bleeding at this time 07/28/24: * See #4 above (6) Diabetes mellitus: Qualifiers: Diabetes mellitus type: type 2 Diabetes mellitus keno terminal operator insulin use: without keno terminal operator use Diabetes mellitus complication status: with hyperglycemia Qualified Code(s): E11.65 - Type 2 diabetes mellitus with hyperglycemia Code(s): E11.9 - Type 2 diabetes mellitus without complications Status: Chronic Assessment and Plan: ##chronic - HgA1c 07/08/24 -- 4.8 --Diabetic diet --Accu-Cheks a.c. HS --SSI 07/28/24: * Continue current regimen. (7) Alcoholic cirrhosis: Qualifiers: Ascites presence: unspecified Qualified Code(s): K70.30 - Alcoholic cirrhosis of liver without ascites Code(s): K70.30 - Alcoholic cirrhosis of liver without ascites Status: Acute Assessment and Plan: ##Patient reports sobriety --> Monitor for alcohol withdrawal 07/28/24: * No s/s of acute ETOH Withdrawal. * Continue to monitor. (8) UTI (urinary tract infection): Qualifiers: Hematuria presence: without hematuria Urinary tract infection type: acute cystitis Qualified Code(s): N30.00 - Acute cystitis without hematuria Code(s): N39.0 - Urinary tract infection, site not specified Status: Acute Assessment and Plan: 1+ glucose, positive nitrates, 1+ leukocytes, negative bilirubin, 3-5 red blood cells, 4+ bacteria --> grew ESBL 3 weeks prior to this hospitalization and urine --> stop Rocephin IV, start Macrobid twice daily p.o. for 5 days (covered ESBL) 07/28/24: * Urine showing E.coli sensitive to the Macrobid that she is taking. Continue abx to completion. (9) Butterfly rash: Code(s): R21 - Rash and other nonspecific skin eruption Status: Acute Assessment and Plan: --> TSH 1.320, ESR 20, CK 28, CRP 0.5, AIRAM- pending. (10) Hypokalemia: Code(s): E87.6 - Hypokalemia Status: Acute Assessment and Plan: --Potassium 3.3. --Potassium Chloride 40 meq PO x1. --Replete as needed --Daily CMP 07/28/24: * 3.3 today Plan y Time Spent With Patient Time with patient: 15 - 25 minutes Subjective Date/time seen: 07/28/24 10:19 Interval history: This pt was examined at the bedside today in interval assessment. She has no acute complaints and states she is actually starting to feel a bit better. Her Magnesium was low this AM and she received 2G rider. Her ammonia decreased to 58 today. She has 2 days left of Macrobid therapy. No other new complaints or symptoms to report. Review of Systems Review of Systems: All systems reviewed & are unremarkable except as noted in HPI and below Exam Narrative: General: well appearing, appears stated age. HEENT: Butterfly rash normocephalic, atraumatic. Mucous membranes moist. EOMI, PERRLA, bilateral sclera anicteric, no conjunctival injection. Neck supple without JVD, lymphadenopathy, or bruit. Respiratory: clear to ascultation bilaterally. No rales/rhonic/wheezes. Cardiovascular: Regular rate and rhythm, normal S1-S2 upon ascultation. No murmurs, rubs, or clicks. PMI is nondisplaced, capillary refill less than 3 second. Abdomen: Soft, round, no pulsatile masses, nondistended and nontender. No rebound, no guarding. No CVA tenderness, no hepatosplenomegaly. Bowel sounds present to all four quadrants. No high pitch or tinkling sounds, resonant to percussion. Extremities: No cyanosis, clubbing, or edema present. Pulses are palpable 2/2. Active ROM to all four extremities. Neuro: Alert and orientated x 4. PERRLA. Cranial nerves 2-12 intact without focal deficit. Skin: Warm, dry, and intact, without rash, erythema, or lesion. Jaundiced in coloration. Psych: pleasant, cooperative, normal speech, normal affect, no hallucinations, no dysarthia Objective Data Vital Signs Vital Signs: Vital Signs - 24 hr 07/27/24 12:00 07/27/24 13:45 07/27/24 14:00 Temperature 98.3 F Pulse Rate 76 61 Respiratory Rate 16 Blood Pressure 120/69 Pulse Oximetry 94 Oxygen Delivery Room Air 07/27/24 14:30 07/27/24 16:00 07/27/24 20:00 Temperature Pulse Rate 71 Respiratory Rate Blood Pressure Pulse Oximetry Oxygen Delivery Room Air Room Air 07/27/24 20:00 07/27/24 21:02 07/28/24 00:00 Temperature 98.2 F Pulse Rate 64 58 L 61 Respiratory Rate 16 Blood Pressure 127/67 Pulse Oximetry 94 Oxygen Delivery 07/28/24 05:43 07/28/24 08:00 Temperature 98.8 F Pulse Rate 66 Respiratory Rate 16 Blood Pressure 138/68 Pulse Oximetry 93 Oxygen Delivery Room Air Intake/Output Intake/Output: Intake & Output 07/25/24 07/26/24 07/27/24 07/28/24 23:59 23:59 23:59 23:59 Intake Total 2051 720 1050 400 Balance 2051 720 1050 400 Meds/Results Medications: Active Medications Generic Name Dose Route Start Last Admin Trade Name Freq PRN Reason Stop Dose Admin Dextrose 12.5 gm 07/24/24 14:06 Dextrose 50% 25 Gm/50 Ml Syringe IV PUSH PRN PRN Hypoglycemia Protocol Glucagon 1 mg 07/24/24 14:06 Glucagon For Inj 1 Mg Vial IM PRN PRN Hypoglycemia Protocol Glucose 15 gm 07/24/24 14:06 Glucose Oral Gel 15 Gm Of Glucse In 37.5 Gm Tube PO PRN PRN Hypoglycemia Protocol Hydroxyzine HCl 25 mg 07/24/24 21:50 07/28/24 07:25 Hydroxyzine Hcl 25 Mg Tablet PO 25 mg BID PRN Administration anxiety Dextrose 1,000 mls @ 100 mls/hr 07/24/24 14:06 Dextrose 5% 1,000 Ml IVPB PRN PRN Hypoglycemia Protocol Insulin Aspart 2 - 5 units 07/24/24 17:00 07/28/24 08:15 Insulin Aspart (*Bkc) 100 Units/Ml SUB-Q Not Given TIDWM [facility] Protocol Insulin Aspart 1 - 2 units 07/24/24 21:00 07/27/24 20:58 Insulin Aspart (*Bkc) 100 Units/Ml SUB-Q Not Given HS [facility] Protocol Insulin Glargine 10 units 07/24/24 21:00 07/27/24 20:57 Insulin Glargine (*Bkc) 100 Units/Ml 0.15 units/kg (10 units) 10 units SUB-Q Administration HS [facility] Lactulose 20 gm 07/25/24 09:00 07/28/24 07:25 Lactulose 20 Gm/30 Ml Udc PO 20 gm TID [facility] Administration Melatonin 10 mg 07/25/24 21:00 07/27/24 20:56 Melatonin 5 Mg Tablet PO 10 mg HS [facility] Administration Naproxen 220 mg 07/25/24 10:43 07/25/24 11:12 Naproxen Sodium 220 Mg Tablet PO 220 mg BIDWM PRN Administration headache Nicotine 1 patch 07/25/24 09:00 07/28/24 07:26 Nicotine (*Pbkc) 14 Mg Patch TRANSDERM Not Given DAILY [facility] Nitrofurantoin Macrocrystals 100 mg 07/26/24 10:55 07/28/24 07:25 Nitrofurantoin Monohyd Macrocr 100 Mg Cap PO 07/30/24 21:01 100 mg Q12HR [facility] Administration Pantoprazole Sodium 40 mg 07/26/24 09:00 07/28/24 07:25 Pantoprazole 40 Mg Tablet PO 40 mg QAM [facility] Administration Rifaximin 550 mg 07/25/24 09:00 07/28/24 07:25 Rifaximin 550 Mg Tablet PO 550 mg BID [facility] Administration Trazodone HCl 50 mg 07/25/24 21:00 07/27/24 20:56 Trazodone Hcl 50 Mg Tablet PO 50 mg HS [facility] Administration Radiology Results: ITS Impressions Chest X-Ray 07/24/24 11:08 Impression: Clear lungs. Head CT 07/24/24 11:43 Impression: No significant abnormality seen. Labs Labs: Laboratory Results - last 24 hr 07/25/24 07/27/24 07/27/24 06:12 06:03 12:01 WBC 3.8 L RBC 3.80 L Hgb 12.6 Hct 37.0 MCV 97.4 MCH 33.2 MCHC 34.1 RDW 14.6 H Plt Count 102 L MPV 10.9 H Immature Gran % (Auto) 0.3 Neut % (Auto) 48.1 Lymph % (Auto) 31.6 [place] % (Auto) 13.7 H Eos % (Auto) 5.0 H Baso % (Auto) 1.3 H Lymph # (Auto) 1.20 [place] # (Auto) 0.5 Eos # (Auto) 0.2 Baso # (Auto) 0.1 Abs Immat Gran (auto) 0.01 Absolute Neuts (auto) 1.8 Absolute Nucleated RBC 0.000 Nucleated RBC % 0.0 Sodium Potassium Chloride Carbon Dioxide Anion Gap BUN Creatinine Estim Creat Clear Calc Estimated GFR Glucose POC Capillary Glucose 141 H Calcium Magnesium Total Bilirubin AST ALT Alkaline Phosphatase Ammonia Total Protein Albumin AIRAM Screen Negative 07/27/24 07/27/24 07/28/24 16:39 19:49 05:49 WBC 3.6 L RBC 3.83 L Hgb 12.6 Hct 37.0 MCV 96.6 MCH 32.9 MCHC 34.1 RDW 14.6 H Plt Count 104 L MPV 10.5 H Immature Gran % (Auto) 0.3 Neut % (Auto) 48.4 Lymph % (Auto) 30.7 [place] % (Auto) 14.8 H Eos % (Auto) 4.7 H Baso % (Auto) 1.1 Lymph # (Auto) 1.10 [place] # (Auto) 0.5 Eos # (Auto) 0.2 Baso # (Auto) 0.0 Abs Immat Gran (auto) 0.01 Absolute Neuts (auto) 1.7 Absolute Nucleated RBC 0.000 Nucleated RBC % 0.0 Sodium 137 Potassium 3.3 L Chloride 110 H Carbon Dioxide 20 L Anion Gap 7 BUN 8 Creatinine 0.49 L Estim Creat Clear Calc 98 Estimated GFR > 60 Glucose 214 H POC Capillary Glucose 195 H 151 H Calcium 8.5 Magnesium 1.3 L Total Bilirubin 2.2 H AST 38 H ALT 22 Alkaline Phosphatase 141 H Ammonia 58 H Total Protein 6.0 L Albumin 2.9 L AIRAM Screen 07/28/24 07:44 WBC RBC Hgb Hct MCV MCH MCHC RDW Plt Count MPV Immature Gran % (Auto) Neut % (Auto) Lymph % (Auto) [place] % (Auto) Eos % (Auto) Baso % (Auto) Lymph # (Auto) [place] # (Auto) Eos # (Auto) Baso # (Auto) Abs Immat Gran (auto) Absolute Neuts (auto) Absolute Nucleated RBC Nucleated RBC % Sodium Potassium Chloride Carbon Dioxide Anion Gap BUN Creatinine Estim Creat Clear Calc Estimated GFR Glucose POC Capillary Glucose 130 H Calcium Magnesium Total Bilirubin AST ALT Alkaline Phosphatase Ammonia Total Protein Albumin AIRAM Screen Quality VTE Prophylaxis VTE prophylaxis: mechanical ordered
[2024-07-28 12:00] LABS: Glucose Point of Care 193 mg/dl (65-105)
[2024-07-28 16:31] LABS: Glucose Point of Care 214 mg/dl (65-105)
[2024-07-28] MEDS: INSULIN ASPART (*BKC) 100 UNITS/ML SUB-Q (17:14)
[2024-07-28 20:47] LABS: Glucose Point of Care 111 mg/dl (65-105)
[2024-07-28] MEDS: MELATONIN 5 MG TABLET 10 MG PO (21:58)
[2024-07-28] MEDS: traZODone HCL 50 MG TABLET PO (21:59)
[2024-07-28] MEDS: INSULIN GLARGINE (*BKC) 100 UNITS/ML 10 UNITS SUB-Q (22:02)
[2024-07-29] VITALS (10 sets, daily range): BP systolic 126–136; BP diastolic 67–77; PULSE 58–92; RESP 16–18; TEMP 36.5–37.1; O2SAT 93–98
[2024-07-29 06:04] LABS: Basophils Percent Auto 0.8 % (0.2-1.2); Eosinophils Absolute Auto 0.2 K/mm3 (0-0.3); Eosinophils Percent Auto 5.2 % (0-4.4); Hematocrit 36.7 % (37.0-47.0); Hemoglobin 12.5 g/dL (12.0-15.0); Immature Granulocyte Absolute 0.02 K/mm3 (0.00-0.031); Immature Granulocyte Percent A 0.6 % (0-0.5); Lymphocytes Absolute Auto 1.06 K/mm3 (0.9-3.2); Lymphocytes Percent Auto 29.2 % (18.3-44.2); Mean Corpuscular HGB Conc 34.1 g/dl (32-36); Mean Corpuscular Hemoglobin 32.4 pg (26-34); Mean Corpuscular Volume 95.1 fl (80-100); Mean Platelet Volume 10.9 fl (7.4-10.4); Monocytes Absolute Auto 0.6 K/mm3 (0.1-0.6); Monocytes Percent Auto 16.8 % (2.6-8.5); Neutrophils Absolute Auto 1.7 K/mm3 (1.3-6.7); Neutrophils Percent Auto 47.4 % (45.5-73.1); Platelet Count Result 109 k/mm3 (150-375); Red Blood Count 3.86 M/mm3 (4.2-5.4); Red Cell Distribution Width 14.5 % (11.5-14.5); White Blood Count 3.6 K/mm3 (4.5-10.0)
[2024-07-29 06:14] LABS: Ammonia 126 umol/L (9-30)
[2024-07-29 06:17] LABS: Alanine Aminotransferase 23 U/L (6-35); Albumin Level 2.9 g/dL (3.5-5.1); Alkaline Phosphatase 124 U/L (38-126); Anion Gap 5 mmol/L (4-12); Aspartate Amino Transferase 37 U/L (14-36); Bilirubin,Total 2.4 mg/dL (0.2-1.3); Blood Urea Nitrogen 7 mg/dL (7-17); Calcium 8.3 mg/dL (8.4-10.2); Carbon Dioxide 23 mmol/L (22-30); Chloride 108 mmol/L (98-107); Estimated CRCL calculation 85 ml/min; Estimated Glomerular Filt Rate > 60; Glucose 179 mg/dL (65-110); Magnesium 1.3 mg/dL (1.6-2.3); Potassium 3.3 mmol/L (3.4-5.0); Sodium 136 mmol/L (137-145)
[2024-07-29 08:25] LABS: Glucose Point of Care 122 mg/dl (65-105)
[2024-07-29] MEDS: NAPROXEN SODIUM 220 MG TABLET PO (08:53)
[2024-07-29] MEDS: PANTOPRAZOLE 40 MG TABLET PO (08:53)
[2024-07-29] MEDS: NITROFURANTOIN MONOHYD MACROCR 100 MG CAP PO ×2 (08:53→20:02)
[2024-07-29] MEDS: LACTULOSE 20 GM/30 ML UDC PO ×3 (08:53→17:25)
[2024-07-29] MEDS: rifAXIMin 550 MG TABLET PO ×2 (08:54→17:25)
--- NOTE | 2024-07-29 09:45 | P.PNIM_ITS ---
Progress Note: A&P Assessment and Plan (1) Hepatic encephalopathy: Code(s): K76.82 - Hepatic encephalopathy Status: Acute Assessment and Plan: ## chronic alcohol induced cirrhosis of the liver Ammonia level - 107 -->Secondary to not taking lactulose -Restart lactulose goal of 3 bowel movements per day -Neurochecks per order -trend Ammonia -->107--> 97--> 62. -PT/OT evaluation and treatment planning. 07/28/24: * Ammonia today is 58, continuing to trend down. 07/29 increased today -liejly due to hypokalemia will replace electrolyte and monitor pt is alert and oriented, having bms anticipate discharge tomorrow if stable (2) Hypomagnesemia: Code(s): E83.42 - Hypomagnesemia Status: Acute Assessment and Plan: -Replace electrolytes as needed -trend Magnesium -->1.5-->--1.7-->1.3. -Magnesium Sulfate 3 gram IVPB x1. -Monitor magnesium levels. 07/28/24: * Repeat Magnesium today is still low at 1.3. 2G rider ordered. * Continue to trend. 07/29 po replacement ordered (3) QT prolongation: Code(s): R94.31 - Abnormal electrocardiogram [ECG] [EKG] Status: Acute Assessment and Plan: - Avoid QTC prolongation medications --> patient monitor - consider Cardiology consultation - ECG this morning showed Sinus bradycardia 58 with QTc 473. Prior QTc 505. 07/28/24: * Pulse remains stable today in the 60s. stable- continue to monitor (4) Thrombocytopenia: Code(s): D69.6 - Thrombocytopenia, unspecified Status: Acute Assessment and Plan: ##Chronic due to alcoholic cirrhosis --> PT/INR stable, --> trend CBC daily - monitor for bleeding 07/28/24: * Platelets remain stable today at 104. No S/S of acute bleeding. * Likely secondary to liver disease (5) Coagulopathy: Code(s): D68.9 - Coagulation defect, unspecified Status: Acute Assessment and Plan: -->PTT in a.m. - monitor for bleeding --> No signs of acute bleeding at this time 07/28/24: * See #4 above (6) Diabetes mellitus: Qualifiers: Diabetes mellitus complication status: with hyperglycemia Diabetes mellitus care home insulin use: without termite control service representative use Diabetes mellitus type: type 2 Qualified Code(s): E11.65 - Type 2 diabetes mellitus with hyperglycemia Code(s): E11.9 - Type 2 diabetes mellitus without complications Status: Chronic Assessment and Plan: ##chronic - HgA1c 07/08/24 -- 4.8 --Diabetic diet --Accu-Cheks a.c. HS --SSI 07/28/24: * Continue current regimen. * stable (7) Alcoholic cirrhosis: Qualifiers: Ascites presence: unspecified Qualified Code(s): K70.30 - Alcoholic cirrhosis of liver without ascites Code(s): K70.30 - Alcoholic cirrhosis of liver without ascites Status: Acute Assessment and Plan: ##Patient reports sobriety --> Monitor for alcohol withdrawal 07/28/24: * No s/s of acute ETOH Withdrawal. * Continue to monitor. (8) UTI (urinary tract infection): Qualifiers: Hematuria presence: without hematuria Urinary tract infection type: acute cystitis Qualified Code(s): N30.00 - Acute cystitis without hematuria Code(s): N39.0 - Urinary tract infection, site not specified Status: Acute Assessment and Plan: 1+ glucose, positive nitrates, 1+ leukocytes, negative bilirubin, 3-5 red blood cells, 4+ bacteria --> grew ESBL 3 weeks prior to this hospitalization and urine --> stop Rocephin IV, start Macrobid twice daily p.o. for 5 days (covered ESBL) 07/28/24: * Urine showing E.coli sensitive to the Macrobid that she is taking. Continue abx to completion. (9) Butterfly rash: Code(s): R21 - Rash and other nonspecific skin eruption Status: Acute Assessment and Plan: --> TSH 1.320, ESR 20, CK 28, CRP 0.5, AIRAM- pending. (10) Hypokalemia: Code(s): E87.6 - Hypokalemia Status: Acute Assessment and Plan: --Potassium 3.3. --Potassium Chloride 40 meq PO x1. --Replete as needed --Daily CMP 07/28/24: * 3.3 today poreplacement for now and monitor Plan y Time Spent With Patient Time with patient: 25 - 35 minutes Subjective Date/time seen: 07/29/24 09:45 Interval history: Pt is seen and examined. Mg is still slightly low, will add po, as well as k. she is feeling better. She is finishing up Macrobid therapy. No other new complaints or symptoms to report. slight headache. Review of Systems Review of Systems: 12 systems were reviewed and are negativ e except for as per HPI. All systems reviewed & are unremarkable except as noted in HPI and below Exam Narrative: General: well appearing, appears stated age. HEENT: Butterfly rash normocephalic, atraumatic. Mucous membranes moist. EOMI, PERRLA, bilateral sclera anicteric, no conjunctival injection. Neck supple without JVD, lymphadenopathy, or bruit. Respiratory: clear to ascultation bilaterally. No rales/rhonic/wheezes. Cardiovascular: Regular rate and rhythm, normal S1-S2 upon ascultation. No murmurs, rubs, or clicks. PMI is nondisplaced, capillary refill less than 3 second. Abdomen: Soft, round, no pulsatile masses, nondistended and nontender. No rebound, no guarding. No CVA tenderness, no hepatosplenomegaly. Bowel sounds present to all four quadrants. No high pitch or tinkling sounds, resonant to percussion. Extremities: No cyanosis, clubbing, or edema present. Pulses are palpable 2/2. Active ROM to all four extremities. Neuro: Alert and orientated x 4. PERRLA. Cranial nerves 2-12 intact without focal deficit. Skin: Warm, dry, and intact, without rash, erythema, or lesion. Jaundiced in coloration. Psych: pleasant, cooperative, normal speech, normal affect, no hallucinations, no dysarthia Const: General: comfortable and no acute distress Resp: Effort & Inspection: normal respiratory effort Auscultation: clear to auscultation bilaterally Cardio: Rate: regular rate Rhythm: regular rhythm Other: Telemetry- SR 63. GI: Auscultation: normal bowel sounds Neuro: Speech: normal speech Extrem: General: no pedal edema Psych: Mental Status: mental status grossly normal Affect: normal affect Objective Data Vital Signs Vital Signs: Vital Signs - 24 hr 07/28/24 12:00 07/28/24 13:58 07/28/24 20:02 Temperature 97.8 F Pulse Rate 64 70 65 Respiratory Rate 18 Blood Pressure 129/70 Pulse Oximetry 93 Oxygen Delivery 07/28/24 21:06 07/28/24 21:59 07/29/24 00:02 Temperature 99.2 F Pulse Rate 64 73 Respiratory Rate 20 Blood Pressure 132/72 Pulse Oximetry 93 Oxygen Delivery Room Air 07/29/24 04:02 07/29/24 05:24 07/29/24 09:43 Temperature 98.7 F Pulse Rate 69 72 Respiratory Rate 18 Blood Pressure 135/67 Pulse Oximetry 98 93 Oxygen Delivery Room Air Intake/Output Intake/Output: Intake & Output 07/26/24 07/27/24 07/28/24 07/29/24 23:59 23:59 23:59 23:59 Intake Total 720 1050 1238 550 Balance 720 1050 1238 550 Meds/Results Medications: Active Medications Generic Name Dose Route Start Last Admin Trade Name Freq PRN Reason Stop Dose Admin Dextrose 12.5 gm 07/24/24 14:06 Dextrose 50% 25 Gm/50 Ml Syringe IV PUSH PRN PRN Hypoglycemia Protocol Glucagon 1 mg 07/24/24 14:06 Glucagon For Inj 1 Mg Vial IM PRN PRN Hypoglycemia Protocol Glucose 15 gm 07/24/24 14:06 Glucose Oral Gel 15 Gm Of Glucse In 37.5 Gm Tube PO PRN PRN Hypoglycemia Protocol Hydroxyzine HCl 25 mg 07/24/24 21:50 07/28/24 21:58 Hydroxyzine Hcl 25 Mg Tablet PO 25 mg BID PRN Administration anxiety Dextrose 1,000 mls @ 100 mls/hr 07/24/24 14:06 Dextrose 5% 1,000 Ml IVPB PRN PRN Hypoglycemia Protocol Insulin Aspart 2 - 5 units 07/24/24 17:00 07/29/24 08:50 Insulin Aspart (*Bkc) 100 Units/Ml SUB-Q Not Given TIDWM [facility] Protocol Insulin Aspart 1 - 2 units 07/24/24 21:00 07/28/24 22:02 Insulin Aspart (*Bkc) 100 Units/Ml SUB-Q Not Given HS [facility] Protocol Insulin Glargine 10 units 07/24/24 21:00 07/28/24 22:02 Insulin Glargine (*Bkc) 100 Units/Ml 0.15 units/kg (10 units) 10 units SUB-Q Administration HS [facility] Lactulose 20 gm 07/25/24 09:00 07/29/24 08:53 Lactulose 20 Gm/30 Ml Udc PO 20 gm TID [facility] Administration Melatonin 10 mg 07/25/24 21:00 07/28/24 21:58 Melatonin 5 Mg Tablet PO 10 mg HS [facility] Administration Naproxen 220 mg 07/25/24 10:43 07/25/24 11:12 Naproxen Sodium 220 Mg Tablet PO 220 mg BIDWM PRN Administration headache Nicotine 1 patch 07/25/24 09:00 07/29/24 08:53 Nicotine (*Pbkc) 14 Mg Patch TRANSDERM Not Given DAILY [facility] Nitrofurantoin Macrocrystals 100 mg 07/26/24 10:55 07/29/24 08:53 Nitrofurantoin Monohyd Macrocr 100 Mg Cap PO 07/30/24 21:01 100 mg Q12HR [facility] Administration Pantoprazole Sodium 40 mg 07/26/24 09:00 07/29/24 08:53 Pantoprazole 40 Mg Tablet PO 40 mg QAM [facility] Administration Rifaximin 550 mg 07/25/24 09:00 07/29/24 08:54 Rifaximin 550 Mg Tablet PO 550 mg BID [facility] Administration Trazodone HCl 50 mg 07/25/24 21:00 07/28/24 21:59 Trazodone Hcl 50 Mg Tablet PO 50 mg HS [facility] Administration Radiology Results: ITS Impressions Chest X-Ray 07/24/24 11:08 Impression: Clear lungs. Head CT 07/24/24 11:43 Impression: No significant abnormality seen. Labs Labs: Laboratory Results - last 24 hr 07/28/24 07/28/24 07/28/24 11:57 16:28 20:21 WBC RBC Hgb Hct MCV MCH MCHC RDW Plt Count MPV Immature Gran % (Auto) Neut % (Auto) Lymph % (Auto) [place] % (Auto) Eos % (Auto) Baso % (Auto) Lymph # (Auto) [place] # (Auto) Eos # (Auto) Baso # (Auto) Abs Immat Gran (auto) Absolute Neuts (auto) Absolute Nucleated RBC Nucleated RBC % Sodium Potassium Chloride Carbon Dioxide Anion Gap BUN Creatinine Estim Creat Clear Calc Estimated GFR Glucose POC Capillary Glucose 193 H 214 H 111 H Calcium Magnesium Total Bilirubin AST ALT Alkaline Phosphatase Ammonia Total Protein Albumin 07/29/24 07/29/24 05:52 08:06 WBC 3.6 L RBC 3.86 L Hgb 12.5 Hct 36.7 L MCV 95.1 MCH 32.4 MCHC 34.1 RDW 14.5 Plt Count 109 L MPV 10.9 H Immature Gran % (Auto) 0.6 H Neut % (Auto) 47.4 Lymph % (Auto) 29.2 [place] % (Auto) 16.8 H Eos % (Auto) 5.2 H Baso % (Auto) 0.8 Lymph # (Auto) 1.06 [place] # (Auto) 0.6 Eos # (Auto) 0.2 Baso # (Auto) 0.0 Abs Immat Gran (auto) 0.02 Absolute Neuts (auto) 1.7 Absolute Nucleated RBC 0.000 Nucleated RBC % 0.0 Sodium 136 L Potassium 3.3 L Chloride 108 H Carbon Dioxide 23 Anion Gap 5 BUN 7 Creatinine 0.57 L Estim Creat Clear Calc 85 Estimated GFR > 60 Glucose 179 H POC Capillary Glucose 122 H Calcium 8.3 L Magnesium 1.3 L Total Bilirubin 2.4 H AST 37 H ALT 23 Alkaline Phosphatase 124 Ammonia 126 H Total Protein 6.0 L Albumin 2.9 L Quality VTE Prophylaxis VTE prophylaxis: mechanical ordered
[2024-07-29] MEDS: POTASSIUM CHLORIDE 20 MEQ ER TABLET 40 MEQ PO (11:09)
[2024-07-29] MEDS: MAGNESIUM OXIDE 400 MG TABLET PO (11:09)
[2024-07-29 11:52] LABS: Glucose Point of Care 178 mg/dl (65-105)
[2024-07-29] MEDS: ACETAMINOPHEN 325 MG TABLET PO (11:54)
[2024-07-29] MEDS: hydrOXYzine HCL 25 MG TABLET PO (13:41)
[2024-07-29 17:22] LABS: Glucose Point of Care 166 mg/dl (65-105)
[2024-07-29] MEDS: traZODone HCL 50 MG TABLET PO (20:02)
[2024-07-29] MEDS: MELATONIN 5 MG TABLET 10 MG PO (20:02)
[2024-07-29 22:10] LABS: Glucose Point of Care 170 mg/dl (65-105)
[2024-07-29] MEDS: INSULIN GLARGINE (*BKC) 100 UNITS/ML 10 UNITS SUB-Q (23:46)
[2024-07-30] VITALS: PULSE 59
[2024-07-30 04:00] VITALS: PULSE 49
[2024-07-30 04:50] VITALS: BP 136/77; PULSE 57; RESP 20; TEMP 36.7; O2SAT 95
[2024-07-30 06:34] LABS: Ammonia 116 umol/L (9-30)
[2024-07-30 06:37] LABS: Basophils Percent Auto 1.1 % (0.2-1.2); Eosinophils Absolute Auto 0.2 K/mm3 (0-0.3); Eosinophils Percent Auto 5.1 % (0-4.4); Hematocrit 37.2 % (37.0-47.0); Hemoglobin 12.5 g/dL (12.0-15.0); Immature Granulocyte Absolute 0.02 K/mm3 (0.00-0.031); Immature Granulocyte Percent A 0.5 % (0-0.5); Lymphocytes Percent Auto 29.7 % (18.3-44.2); Mean Corpuscular HGB Conc 33.6 g/dl (32-36); Mean Corpuscular Hemoglobin 32.2 pg (26-34); Mean Corpuscular Volume 95.9 fl (80-100); Mean Platelet Volume 10.4 fl (7.4-10.4); Monocytes Absolute Auto 0.7 K/mm3 (0.1-0.6); Monocytes Percent Auto 17.8 % (2.6-8.5); Neutrophils Absolute Auto 1.7 K/mm3 (1.3-6.7); Neutrophils Percent Auto 45.8 % (45.5-73.1); Platelet Count Result 113 k/mm3 (150-375); Red Blood Count 3.88 M/mm3 (4.2-5.4); Red Cell Distribution Width 14.6 % (11.5-14.5); White Blood Count 3.7 K/mm3 (4.5-10.0)
[2024-07-30 06:58] LABS: Alanine Aminotransferase 22 U/L (6-35); Albumin Level 2.9 g/dL (3.5-5.1); Alkaline Phosphatase 128 U/L (38-126); Anion Gap 7 mmol/L (4-12); Aspartate Amino Transferase 35 U/L (14-36); Bilirubin,Total 2.4 mg/dL (0.2-1.3); Blood Urea Nitrogen 9 mg/dL (7-17); Calcium 8.7 mg/dL (8.4-10.2); Carbon Dioxide 21 mmol/L (22-30); Chloride 110 mmol/L (98-107); Estimated CRCL calculation 90 ml/min; Estimated Glomerular Filt Rate > 60; Glucose 177 mg/dL (65-110); Magnesium 1.4 mg/dL (1.6-2.3); Potassium 3.5 mmol/L (3.4-5.0); Sodium 138 mmol/L (137-145)
[2024-07-30 08:19] LABS: Glucose Point of Care 147 mg/dl (65-105)
[2024-07-30] MEDS: LACTULOSE 20 GM/30 ML UDC PO ×3 (08:56→19:46)
[2024-07-30] MEDS: rifAXIMin 550 MG TABLET PO ×2 (08:57→19:46)
[2024-07-30] MEDS: MAGNESIUM OXIDE 400 MG TABLET PO (08:57)
[2024-07-30] MEDS: PANTOPRAZOLE 40 MG TABLET PO (08:57)
[2024-07-30] MEDS: NITROFURANTOIN MONOHYD MACROCR 100 MG CAP PO ×2 (08:58→21:33)
--- NOTE | 2024-07-30 10:54 | P.DS_ITS ---
DS: Admitting Diagnosis Discharge Date 07/30 Admitting Diagnosis ams DS: Discharge Diagnosis Discharge Diagnosis (1) Hepatic encephalopathy: Code(s): K76.82 - Hepatic encephalopathy Status: Acute (2) Hypomagnesemia: Code(s): E83.42 - Hypomagnesemia Status: Acute (3) QT prolongation: Code(s): R94.31 - Abnormal electrocardiogram [ECG] [EKG] Status: Acute (4) Thrombocytopenia: Code(s): D69.6 - Thrombocytopenia, unspecified Status: Acute (5) Coagulopathy: Code(s): D68.9 - Coagulation defect, unspecified Status: Acute (6) Diabetes mellitus: Qualifiers: Diabetes mellitus complication status: with hyperglycemia Diabetes mellitus long distance billing operator insulin use: without long distance billing operator use Diabetes mellitus type: type 2 Qualified Code(s): E11.65 - Type 2 diabetes mellitus with hyperglycemia Code(s): E11.9 - Type 2 diabetes mellitus without complications Status: Chronic (7) Alcoholic cirrhosis: Qualifiers: Ascites presence: unspecified Qualified Code(s): K70.30 - Alcoholic cirrhosis of liver without ascites Code(s): K70.30 - Alcoholic cirrhosis of liver without ascites Status: Acute (8) UTI (urinary tract infection): Qualifiers: Hematuria presence: without hematuria Urinary tract infection type: acute cystitis Qualified Code(s): N30.00 - Acute cystitis without hematuria Code(s): N39.0 - Urinary tract infection, site not specified Status: Acute (9) Butterfly rash: Code(s): R21 - Rash and other nonspecific skin eruption Status: Acute (10) Hypokalemia: Code(s): E87.6 - Hypokalemia Status: Acute DS: Summary Hospital Course Hospital Course: 49-year-old female who was recently hospitalized with a UTI presents the hospital with altered mental status. Due to severe diarrhea on discharge she did stop taking her lactulose. Patient states that she is confused and feels weird. In the ED patient has leukopenia at 3.9, platelet count of 125, INR of 1.5 carbon dioxide of 17, glucose of 259, magnesium of 1.5, total bili of 2.9, AST of 37, alkaline phos of 164, ammonia of 107. UA is cloudy with positive nitrates. Head CT shows no acute findings. Chest x-ray is unremarkable. EKG shows sinus rhythm rate of 63, QTC of 505. Several issues were addressed: # Hepatic encephalopathy: # chronic alcohol induced cirrhosis of the liver Ammonia level - 107 -->Secondary to not taking lactulose -Restart lactulose goal of 3 bowel movements per day -trend Ammonia -->107--> 97--> 62. -PT/OT evaluation and treatment planning. 07/28/24: * Ammonia today is 58, continuing to trend down. 07/29 increased today -likely due to hypokalemia will replace electrolyte and monitor pt is alert and oriented, having bms anticipate discharge tomorrow if stable 07/30 decreasing today- anticipate discharge with a lab repeated within few days to ensure improvement. Pt is alert, having regular BMs-stable. she is aware and agreeable. #Hypomagnesemia: -trend Magnesium -->1.5-->--1.7-->1.3. -Magnesium Sulfate 3 gram IVPB x1. -Monitor magnesium levels. - continue PO mg for another week and repeat levels #QT prolongation: - Avoid QTC prolongation medications --> breakfast manager - consider Cardiology consultation - ECG this morning showed Sinus bradycardia 58 with QTc 473. Prior QTc 505. # UTI 1+ glucose, positive nitrates, 1+ leukocytes, negative bilirubin, 3-5 red blood cells, 4+ bacteria --> grew ESBL 3 weeks prior to this hospitalization and urine --> stop Rocephin IV, start Macrobid twice daily p.o. for 5 days (covered ESBL)- will need one more dose tonight #Rash and other nonspecific skin eruption TSH 1.320, ESR 20, CK 28, CRP 0.5, AIRAM- negative Status at Discharge Functional status at discharge: independent ambulation Overall status at discharge: patient is progressing back to baseline Time Spent with Patient Time attestation: Total time spent providing and/or coordinating discharge services: Time spent: Greater than 30 minutes Exam Narrative: General: well appearing, appears stated age. HEENT: Butterfly rash normocephalic, atraumatic. Mucous membranes moist. EOMI, PERRLA, bilateral sclera anicteric, no conjunctival injection. Neck supple without JVD, lymphadenopathy, or bruit. Respiratory: clear to ascultation bilaterally. No rales/rhonic/wheezes. Cardiovascular: Regular rate and rhythm, normal S1-S2 upon ascultation. No murmurs, rubs, or clicks. PMI is nondisplaced, capillary refill less than 3 second. Abdomen: Soft, round, no pulsatile masses, nondistended and nontender. No rebound, no guarding. No CVA tenderness, no hepatosplenomegaly. Bowel sounds present to all four quadrants. No high pitch or tinkling sounds, resonant to percussion. Extremities: No cyanosis, clubbing, or edema present. Pulses are palpable 2/2. Active ROM to all four extremities. Neuro: Alert and orientated x 4. PERRLA. Cranial nerves 2-12 intact without focal deficit. Skin: Warm, dry, and intact, without rash, erythema, or lesion. Jaundiced in coloration. Psych: pleasant, cooperative, normal speech, normal affect, no hallucinations, no dysarthia Const: General: comfortable and no acute distress Resp: Effort & Inspection: normal respiratory effort Auscultation: clear to auscultation bilaterally Cardio: Rate: regular rate Rhythm: regular rhythm Other: Telemetry- SR 63. GI: Auscultation: normal bowel sounds Neuro: Speech: normal speech Extrem: General: no pedal edema Psych: Mental Status: mental status grossly normal Affect: normal affect DS: Data Data Completed and Pending Labs on day of discharge: Labs from last 24 hours 07/30/24 07/30/24 07/29/24 08:10 06:10 20:54 WBC 3.7 L RBC 3.88 L Hgb 12.5 Hct 37.2 MCV 95.9 MCH 32.2 MCHC 33.6 RDW 14.6 H Plt Count 113 L MPV 10.4 Immature Gran % (Auto) 0.5 Neut % (Auto) 45.8 Lymph % (Auto) 29.7 Rolette % (Auto) 17.8 H Eos % (Auto) 5.1 H Baso % (Auto) 1.1 Lymph # (Auto) 1.10 Rolette # (Auto) 0.7 H Eos # (Auto) 0.2 Baso # (Auto) 0.0 Abs Immat Gran (auto) 0.02 Absolute Neuts (auto) 1.7 Absolute Nucleated RBC 0.000 Nucleated RBC % 0.0 Sodium 138 Potassium 3.5 Chloride 110 H Carbon Dioxide 21 L Anion Gap 7 BUN 9 Creatinine 0.54 L Estim Creat Clear Calc 90 Estimated GFR > 60 Glucose 177 H POC Capillary Glucose 147 H 170 H Calcium 8.7 Magnesium 1.4 L Total Bilirubin 2.4 H AST 35 ALT 22 Alkaline Phosphatase 128 H Ammonia 116 H Total Protein 6.0 L Albumin 2.9 L 07/29/24 07/29/24 16:50 11:49 WBC RBC Hgb Hct MCV MCH MCHC RDW Plt Count MPV Immature Gran % (Auto) Neut % (Auto) Lymph % (Auto) Rolette % (Auto) Eos % (Auto) Baso % (Auto) Lymph # (Auto) Rolette # (Auto) Eos # (Auto) Baso # (Auto) Abs Immat Gran (auto) Absolute Neuts (auto) Absolute Nucleated RBC Nucleated RBC % Sodium Potassium Chloride Carbon Dioxide Anion Gap BUN Creatinine Estim Creat Clear Calc Estimated GFR Glucose POC Capillary Glucose 166 H 178 H Calcium Magnesium Total Bilirubin AST ALT Alkaline Phosphatase Ammonia Total Protein Albumin Discharge Plan Discharge Attending physician on discharge: Dwayne Montes Discharging Clinician: Karla Blake Patient Disposition: [place] [facility] Living Activity: september shower Diet: diabetic Patient Instructions: Antibiotic Form Patient Language: Austrian Stand Alone Forms: General Discharge Information Follow-up/Referrals: PHYSICIAN NOT ON STAFF,NONSTAFF [Primary Care Provider] - 2 Weeks Discharge Medications: New nitrofurantoin monohyd/m-cryst [Macrobid] 100 mg Capsule 100 mg PO Q12HR Qty: 1 0RF Rx Instructions: take 1 tab tonight 315 at 8-9 pm to complete the course Continued fluoxetine 20 mg/5 mL (4 mg/mL) solution 20 mg PO QAM folic acid 1 mg tablet 1 mg PO DAILY hydroxyzine HCl 25 mg tablet 25 mg PO BID PRN (Reason: anxiety) lactulose 10 gram/15 mL solution 10 g PO TID magnesium oxide-Mg AA chelate 300 mg capsule 1 cap PO DAILY Rx Instructions: 300mg nicotine 14 mg/24 hr patch 24 hour 1 patch transdermal DAILY pantoprazole 40 mg tablet,delayed release (DR/EC) 40 mg PO QAM trazodone 50 mg tablet 50 mg PO HS thiamine HCl (vitamin B1) 100 mg capsule 100 mg PO DAILY Xifaxan 550 mg tablet 550 mg PO BID potassium chloride [K-Tab] 20 mEq Tablet Extended Release 20 meq PO DAILY@0800 Qty: 30 0RF No Action melatonin 10 mg capsule 10 mg PO HS Date of admission: 07/26/24 13:25 Primary Care Provider: PHYSICIAN NOT ON STAFF,NONSTAFF Admitting Provider: Mckenna Orellana Attending physician on admission: Yas Hernandez Condition: Stable Quality VTE Prophylaxis VTE prophylaxis: mechanical ordered Hospitalist MIPS Heart Failure (Exclusion) Patient has history of Heart Transplant or Left Ventricular Assistive Device?: No IF YES, STOP HERE Heart Failure (Qualifier) Patient has current or prior documentation of LVEF less than or equal to 40%, or mod/servere depressed LVSF?: No IF NO, STOP HERE
[2024-07-30 11:58] LABS: Glucose Point of Care 145 mg/dl (65-105)
[2024-07-30 12:00] VITALS: PULSE 62
[2024-07-30 13:42] VITALS: BP 117/61; PULSE 69; RESP 18; TEMP 36.8; O2SAT 93
[2024-07-30] MEDS: hydrOXYzine HCL 25 MG TABLET PO (13:55)
[2024-07-30 16:50] LABS: Glucose Point of Care 123 mg/dl (65-105)
[2024-07-30 20:27] LABS: Glucose Point of Care 160 mg/dl (65-105)
[2024-07-30 21:13] VITALS: BP 143/77; PULSE 59; RESP 16; TEMP 37.1; O2SAT 93
[2024-07-30] MEDS: traZODone HCL 50 MG TABLET PO (21:33)
[2024-07-30] MEDS: INSULIN GLARGINE (*BKC) 100 UNITS/ML 10 UNITS SUB-Q (21:33)
[2024-07-30] MEDS: MELATONIN 5 MG TABLET 10 MG PO (21:33)
[2024-07-31 05:21] VITALS: BP 126/65; PULSE 69; RESP 16; TEMP 36.9; O2SAT 96
[2024-07-31 06:16] LABS: Magnesium 1.4 mg/dL (1.6-2.3)
[2024-07-31 08:04] LABS: Glucose Point of Care 137 mg/dl (65-105)
--- NOTE | 2024-07-31 08:10 | PM.EVENT ---
Event Note Event Note Event Note: Pt was discharged yesterday. There was some confusion as to transportation but today she should be able to have transportation available to leave the facility. There was no event overnight. Pt is stable for discharge. See discharge summary for 07/30. Since she stay last night, she received her last dose of microbid and completed the whole course of antibiotics.
[2024-07-31] MEDS: hydrOXYzine HCL 25 MG TABLET PO (08:38)
[2024-07-31] MEDS: rifAXIMin 550 MG TABLET PO (08:38)
[2024-07-31] MEDS: PANTOPRAZOLE 40 MG TABLET PO (08:38)
[2024-07-31] MEDS: LACTULOSE 20 GM/30 ML UDC PO (08:38)
[2024-07-31] MEDS: ACETAMINOPHEN 325 MG TABLET PO (08:38)
[2024-07-31] MEDS: MAGNESIUM OXIDE 400 MG TABLET PO (08:38)
[2024-07-31 11:51] LABS: Glucose Point of Care 188 mg/dl (65-105)
== END 2024-07-31 13:25 | DRG 280 ==
LOC: ANHED 12:36 → ANH3MEDSUR 13:23
PROVIDERS: Emergency Medicine; Nurse Practitioner Adult Health; Nurse Practitioner Family; Nurse Practitioner Gerontology; Admitting Provider Family Medicine; Emergency Provider Student in an Organized Health Care Education/Training Program; Visit Provider Nurse Practitioner
DX: K76.82 Hepatic encephalopathy (principal); K70.30 Alcoholic cirrhosis of liver without ascites; K86.1 Other chronic pancreatitis; B96.20 Unspecified Escherichia coli [E. coli] as the cause of diseases classified elsewhere; D69.6 Thrombocytopenia, unspecified; D68.9 Coagulation defect, unspecified; E83.42 Hypomagnesemia; E11.65 Type 2 diabetes mellitus with hyperglycemia; E87.6 Hypokalemia; R94.31 Abnormal electrocardiogram [ECG] [EKG]; R21 Rash and other nonspecific skin eruption; N30.00 Acute cystitis without hematuria; Z20.822 Contact with and (suspected) exposure to COVID-19; Z28.21 Immunization not carried out because of patient refusal
CPT/HCPCS: 36415; 70450; 71046; 80053; 81001; 81002; 82140; 82550; 82948; 83735; 84100; 84132; 84443; 85025; 85055; 85610; 85652; 85730; 86038; 86039; 86140; 87086; 87186; 87637; 93005; 96365; 96366; 96367; 96368; 96375; 97161; 97165; 99285; A9270; G0378; G0379; J0696; J1815; J3475; J3480; J7040; J7120

== ENCOUNTER 2024-10-05 00:01 | Day surgery (SDC) | payer OTHER, SELFPAY ==
--- OUTSIDE RECORDS SUMMARY | 2024-10-05 00:03 | XMS_ITS | CONTINUITY OF CARE DOCUMENT ---
Author Name salliemalcompatrice Address Unknown Organization [facility] Address [address] [place] [address] Phone [phone] Care Team Providers Care Benzol Operator Name Role Phone Nguyễn ANG, Adal Unavailable Adal Adrian MD Unavailable INSURANCE PROVIDERS Payer name Policy type / Coverage type [place] [employer] party ID [employer]EL[employer] MEDICAID (2) Medicaid [id number]
[2024-10-05 13:10] VITALS: BP 147/74; PULSE 67; RESP 12; TEMP 36.9; O2SAT 100; BMI 26.4
[2024-10-05] MEDS: LACTATED RINGERS 1,000 ML 150 ML IV CONT (13:50)
[2024-10-05 13:52] LABS: Glucose Point of Care 109 mg/dl (65-105)
--- NOTE | 2024-10-05 14:21 | SUR.PREOP ---
was notified that patient had sausage and cereal yesterday for breakfast. will proceed with procedure.
--- NOTE | 2024-10-05 14:58 | P.PNAN_ITS ---
Anes - Initial Pre Proc Eval Procedure: Operation Date: 10/05/24 14:00 Proposed Procedures p Colonoscopy - Michael Leone MD Date/Time: 10/05/24 14:58 Surgeon: Michael Leone MD Pre Op Diagnosis: Hepatic encephalopathy Patient Data Age: 49 Gender: F Height: 1.63 m Weight: 69.8 kg Last Vital Signs Temp 36.9 C 10/05/24 13:10 Pulse 67 10/05/24 13:10 Resp 12 10/05/24 13:10 BP 147/74 H 10/05/24 13:10 Pulse Ox 100 10/05/24 13:10 O2 Del Method Room Air 10/05/24 13:10 Allergies Allergy/AdvReac Type Severity Reaction Status Date / Time No Known Allergies Allergy Verified 10/05/24 13:17 Home Medications ?Medication ?Instructions ?Recorded ?Confirmed ?Type folic acid 1 mg tablet 1 mg PO DAILY 07/07/24 10/05/24 History hydroxyzine HCl 25 mg tablet 25 mg PO BID PRN anxiety 07/07/24 10/05/24 History lactulose 10 gram/15 mL oral 10 g PO TID 07/07/24 10/05/24 History solution magnesium oxide-magnesium amino 1 cap PO DAILY 07/07/24 10/05/24 History acid chelate 300 mg capsule melatonin 10 mg capsule 10 mg PO HS 07/07/24 10/05/24 History pantoprazole 40 mg tablet,delayed 40 mg PO QAM 07/07/24 10/05/24 History release rifaximin 550 mg tablet (Xifaxan) 550 mg PO BID 07/07/24 10/05/24 History thiamine HCl (vitamin B1) 100 mg 100 mg PO DAILY 07/07/24 10/05/24 History capsule trazodone 50 mg tablet 50 mg PO HS 07/07/24 10/05/24 History potassium chloride 20 mEq 20 meq PO DAILY@0800 #30 tabs 07/13/24 10/05/24 Rx tablet,extended release (K-Tab) insulin lispro 100 unit/mL 1 sliding scale dose subcut 10/03/24 10/05/24 History subcutaneous half-unit pen USEASDIRECTD (Humalog Red KwikPen (U-100)) neomycin 500 mg tablet 500 mg PO BID 10/03/24 10/05/24 History paroxetine HCl 20 mg tablet 10 mg PO QAM 10/03/24 10/05/24 History Laboratory Tests 10/05/24 13:39 POC Capillary Glucose 109 H mg/dl (65-105) Patient hx anesthesia problems: none Family hx anesthesia problems: none Results Review: All pre-operative results and documents have been reviewed as part of the pre- operative evaluation. [facility] Past Medical History Medical History Cirrhosis Elevated liver enzymes Hepatitis, alcoholic, acute Chronic pancreatitis Portal hypertension Coagulopathy Atrial fibrillation with rapid ventricular response Suicidal ideation Esophageal varices Diabetes mellitus Anxiety Panic attacks Chronic depression Chronic liver disease Surgical History Surgical History History of bilateral ligation of fallopian tubes History of gastrointestinal surgery For esophageal varices Family History Family History Mother Chronic obstructive pulmonary disease Other Unknown family medical history Social History Social History Social History: Homeless but per documentation going through a messy divorce Smoking status: Unknown if ever smoked Tobacco type: cigarettes Alcohol intake: former Drinks per week: 20 Alcohol use details: Liquor Substance use: unknown Substance use type: does not use Do You Feel Safe in your Home?: Yes Lack of Transportation: No Lack of Food: Never True Current Housing: I Have Housing Concerned About Future Housing: No Difficulty Paying Gas/Electric Bills: No Difficulty Paying for Meds: No Currently Unemployed: No Education: High School Diploma/GED Difficulty w/ Childcare or Family Care: No Living arrangements: detention Spiritual care concerns: No Anes - Eval Final PreProcedure Day of Procedure 10/05/24 14:58 Patient weight: overweight Heart: regular rate and rhythm Lungs: decreased breath sounds Airway: Mallampati scale class II Neurological: alert and oriented Last oral intake: >/= 8 hours ASA classification: IV Emergent: no Anesthetic plan: proceed Anesthesia type and monitoring: general GIVS and standard monitoring Results Review: All pre-operative results and documents have been reviewed as part of the pre- operative evaluation. Informed Consent: The patient's anesthetic plan and its attendant risks and benefits were discussed with the patient/family/POA. Questions were solicited and answers provided to the satisfaction of the patient/family/POA.
--- NOTE | 2024-10-05 15:11 | P.HP_ITS ---
H&P: HPI History of Present Illness Date/Time: 10/05/24 15:11 Chief Complaint: Screening colonoscopy Narrative: This is the patient's first colonoscopy. There are no GI symptoms and there is no family history of colorectal cancer. Review of Systems Review of Systems: All systems reviewed & are unremarkable except as noted in HPI and below PMFSH Past Medical History Medical History Cirrhosis Elevated liver enzymes Hepatitis, alcoholic, acute Chronic pancreatitis Portal hypertension Coagulopathy Atrial fibrillation with rapid ventricular response Suicidal ideation Esophageal varices Diabetes mellitus Anxiety Panic attacks Chronic depression Chronic liver disease Surgical History Surgical History History of bilateral ligation of fallopian tubes History of gastrointestinal surgery For esophageal varices Family History Family History Mother Chronic obstructive pulmonary disease Other Unknown family medical history Social History Social History Social History: Homeless but per documentation going through a messy divorce Smoking status: Unknown if ever smoked Tobacco type: cigarettes Alcohol intake: former Drinks per week: 20 Alcohol use details: Liquor Substance use: unknown Substance use type: does not use Do You Feel Safe in your Home?: Yes Lack of Transportation: No Lack of Food: Never True Current Housing: I Have Housing Concerned About Future Housing: No Difficulty Paying Gas/Electric Bills: No Difficulty Paying for Meds: No Currently Unemployed: No Education: High School Diploma/GED Difficulty w/ Childcare or Family Care: No Living arrangements: residential Spiritual care concerns: No Meds Home Medications and Allergies Home Medications ?Medication ?Instructions ?Recorded ?Confirmed ?Type folic acid 1 mg tablet 1 mg PO DAILY 07/07/24 10/05/24 History hydroxyzine HCl 25 mg tablet 25 mg PO BID PRN anxiety 07/07/24 10/05/24 History lactulose 10 gram/15 mL oral 10 g PO TID 07/07/24 10/05/24 History solution magnesium oxide-magnesium amino 1 cap PO DAILY 07/07/24 10/05/24 History acid chelate 300 mg capsule melatonin 10 mg capsule 10 mg PO HS 07/07/24 10/05/24 History pantoprazole 40 mg tablet,delayed 40 mg PO QAM 07/07/24 10/05/24 History release rifaximin 550 mg tablet (Xifaxan) 550 mg PO BID 07/07/24 10/05/24 History thiamine HCl (vitamin B1) 100 mg 100 mg PO DAILY 07/07/24 10/05/24 History capsule trazodone 50 mg tablet 50 mg PO HS 07/07/24 10/05/24 History potassium chloride 20 mEq 20 meq PO DAILY@0800 #30 tabs 07/13/24 10/05/24 Rx tablet,extended release (K-Tab) insulin lispro 100 unit/mL 1 sliding scale dose subcut 10/03/24 10/05/24 History subcutaneous half-unit pen USEASDIRECTD (Humalog Red KwikPen (U-100)) neomycin 500 mg tablet 500 mg PO BID 10/03/24 10/05/24 History paroxetine HCl 20 mg tablet 10 mg PO QAM 10/03/24 10/05/24 History Allergies Allergy/AdvReac Type Severity Reaction Status Date / Time No Known Allergies Allergy Verified 10/05/24 13:17 Vital Signs Vital Signs - 24 hr 10/05/24 13:10 Temperature 98.4 F Pulse Rate 67 Respiratory Rate 12 Blood Pressure 147/74 H Pulse Oximetry 100 Oxygen Delivery Room Air Exam Const: General: cooperative and healthy appearing Resp: Effort & Inspection: normal respiratory effort and able to speak in complete sentences Auscultation: clear to auscultation bilaterally Cardio: Rate: regular rate Rhythm: regular rhythm GI: Inspection: normal to inspection GI Palp: No No hepatosplenomegaly present Auscultation: normal bowel sounds Rectal Exam: deferred Skin: General skin exam: normal color Psych: Appearance: grossly normal Mental Status: mental status grossly normal Assessment and Plan Assessment and plan (1) Encounter for screening colonoscopy: Code(s): Z12.11 - Encounter for screening for malignant neoplasm of colon Status: Acute Assessment and Plan: The patient is deemed a good candidate for the procedure. Consent signed. Will proceed.
[2024-10-05 15:38] VITALS: BP 107/55; PULSE 60; RESP 20; O2SAT 91
[2024-10-05 15:48] VITALS: BP 108/60; PULSE 58; RESP 19; O2SAT 97
[2024-10-05 15:58] VITALS: BP 135/74; PULSE 55; RESP 19; O2SAT 97
[2024-10-05 17:13] LABS: Glucose Point of Care 95 mg/dl (65-105)
== END 2024-10-05 16:20 | disposition home or self-care (01) ==
PROVIDERS: Visit Provider Internal Medicine Gastroenterology
PROC: 0DJD8ZZ Inspection of Lower Intestinal Tract, Via Natural or Artificial Opening Endoscopic (ICD-10-PCS; CPT 45378; principal; 2024-10-05 14:00)
DX: Z12.11 Encounter for screening for malignant neoplasm of colon (principal); K64.8 Other hemorrhoids; K57.30 Diverticulosis of large intestine without perforation or abscess without bleeding; K76.82 Hepatic encephalopathy; E11.9 Type 2 diabetes mellitus without complications; F41.9 Anxiety disorder, unspecified; F41.0 Panic disorder [episodic paroxysmal anxiety]; F32.A Depression, unspecified; K74.60 Unspecified cirrhosis of liver; K70.10 Alcoholic hepatitis without ascites; K76.89 Other specified diseases of liver; K86.1 Other chronic pancreatitis; K76.6 Portal hypertension; D68.9 Coagulation defect, unspecified; I48.20 Chronic atrial fibrillation, unspecified; Z79.4 Long term (current) use of insulin; Z98.890 Other specified postprocedural states; Z98.51 Tubal ligation status; Z87.19 Personal history of other diseases of the digestive system
CPT/HCPCS: 45378; 82948; J2003; J2704; J7120

== ENCOUNTER 2024-10-27 01:49 | Emergency (ER) | payer OTHER, SELFPAY ==
--- NOTE | ~2024-10-27 | CT_ITS ---
Non-contrast Head CT History: Altered mental status COMPARISON: 07/24/2024 Technique: Axial non-contrast imaging of the brain was performed. Dose reduction technique was used on this scan by utilizing automated exposure control and iterative reconstruction technique. The dose -length product (DLP) was 681.00 mGy-cm. Findings: There is no evidence of intracranial hemorrhage, mass lesion, or acute infarct. Brain par enchyma appears normal. The ventricles and subarachnoid spaces are normal in size. The calvarium ap pears normal. The visualized paranasal sinuses and mastoid air cells are clear. Impression: No significant abnormality seen. Reviewed, dictated and finalized at location . Impression: No significant abnormality seen.
--- NOTE | ~2024-10-27 | XR_ITS ---
Portable chest x-ray Comparison: 07/24/2024 Clinical History: Altered mental status Findings: Lungs are clear, without focal consolidation or pleural effusion. Cardiomediastinal silho uette is stable. Bones and soft tissues are unremarkable. Impression: Clear lungs. Reviewed, dictated and finalized at location . Impression: Clear lungs.
[2024-10-27 01:49] VITALS: BP 108/96; PULSE 80; RESP 20; TEMP 36.9; O2SAT 93
--- NOTE | 2024-10-27 02:01 | ECG_ITS ---
Test Date: 2024-10-27 02:07:52 Measurements Intervals [place] Rate: 78 P: 40 MT: 167 QRS: 8 QRSD: 91 T: 29 QT: 432 QTc: 494 Interpretive Statements SINUS RHYTHM CONSIDER INFERIOR INFARCT, AGE INDETERMINATE CONSIDER ANTERIOR INFARCT, AGE INDETERMINATE ABNORMAL ECG Compared to ECG 07/27/2024 07:55:02 HEART RATE HAS INCREASED Electronically Signed On 10-27-2024 05:55:40 CDT by Kelby King D.O.
--- NOTE | 2024-10-27 02:01 | PC.NURSE ---
pt admitted to drinking around 4pm in the evening and stated she drank a pint of vodka
[2024-10-27 03:10] LABS: Ethanol 134 mg/dL (<10)
--- OUTSIDE RECORDS SUMMARY | 2024-10-27 03:22 | XMS_ITS | CONTINUITY OF CARE DOCUMENT ---
Author Name salliemalcompatrice Address Unknown Organization [facility] Address [address] [place] [address] Phone [phone] Care Team Providers Care Supervisor Asbestos Textile Name Role Phone Nguyễn ANG, Adal Unavailable Adal Adrian MD Unavailable INSURANCE PROVIDERS Payer name Policy type / Coverage type [place] [employer] party ID [employer]EL[employer] MEDICAID (2) Medicaid [id number]
[2024-10-27 04:27] VITALS: BP 113/85; PULSE 67; RESP 18; O2SAT 100
--- NOTE | 2024-10-27 05:10 | ED_ITS ---
HPI - General Adult General Chief complaint: Alcohol Stated complaint: ETOH, SVT - RESOLVED W/ ADENOSINE Time Seen by Provider: 10/27/24 01:55 History of Present Illness HPI narrative: This is a 49-year-old female with history of alcoholic encephalopathy presenting for alcohol intoxication. She was acting [facility] at the prison and they found a empty bottle of vodka underneath her bed. She then sent her to the hospital to be evaluated. EN route she had an episode of stable SVT that was treated successfully with 6 mg of adenosine. At this time the patient is playing games on her iPad and has no complaints. No chest pain palpitations shortness of breath. She admits to drinking vodka. She appears intoxicated Related Data Home Medications ?Medication ?Instructions ?Recorded ?Confirmed ?Last Taken ?Type folic acid 1 mg tablet 1 mg PO DAILY 07/07/24 10/05/24 10/05/24 History hydroxyzine HCl 25 mg tablet 25 mg PO BID PRN anxiety 07/07/24 10/05/24 09/22/24 History lactulose 10 gram/15 mL oral 10 g PO TID 07/07/24 10/05/24 10/05/24 History solution magnesium oxide-magnesium amino 1 cap PO DAILY 07/07/24 10/05/24 10/05/24 History acid chelate 300 mg capsule melatonin 10 mg capsule 10 mg PO HS 07/07/24 10/05/24 10/04/24 History pantoprazole 40 mg tablet,delayed 40 mg PO QAM 07/07/24 10/05/24 10/05/24 History release rifaximin 550 mg tablet (Xifaxan) 550 mg PO BID 07/07/24 10/05/24 08/27/24 History thiamine HCl (vitamin B1) 100 mg 100 mg PO DAILY 07/07/24 10/05/24 10/04/24 History capsule trazodone 50 mg tablet 50 mg PO HS 07/07/24 10/05/24 10/04/24 History insulin lispro 100 unit/mL 1 sliding scale dose subcut 10/03/24 10/05/24 10/05/24 History subcutaneous half-unit pen USEASDIRECTD (Humalog Red KwikPen (U-100)) neomycin 500 mg tablet 500 mg PO BID 10/03/24 10/05/24 10/05/24 History paroxetine HCl 20 mg tablet 10 mg PO QAM 10/03/24 10/05/24 10/05/24 History Allergies Allergy/AdvReac Type Severity Reaction Status Date / Time No Known Allergies Allergy Verified 10/05/24 13:17 [facility] Past Medical History Medical History Cirrhosis Elevated liver enzymes Hepatitis, alcoholic, acute Chronic pancreatitis Portal hypertension Coagulopathy Atrial fibrillation with rapid ventricular response Suicidal ideation Esophageal varices Diabetes mellitus Anxiety Panic attacks Chronic depression Chronic liver disease Surgical History Surgical History History of bilateral ligation of fallopian tubes History of gastrointestinal surgery For esophageal varices Family History Family History Mother Chronic obstructive pulmonary disease Other Unknown family medical history Social History Social History Social History: Homeless but per documentation going through a messy divorce Smoking status: Unknown if ever smoked Tobacco type: cigarettes Alcohol intake: former Drinks per week: 20 Alcohol use details: Liquor Substance use: unknown Substance use type: does not use Do You Feel Safe in your Home?: Yes Lack of Transportation: No Lack of Food: Never True Current Housing: I Have Housing Concerned About Future Housing: No Difficulty Paying Gas/Electric Bills: No Difficulty Paying for Meds: No Currently Unemployed: No Education: High School Diploma/GED Difficulty w/ Childcare or Family Care: No Living arrangements: prison Spiritual care concerns: No Exam 2 Narrative: APPEARANCE: No apparent distress. Head: atraumatic. EYES: EOMI, NOSE: Atraumatic NECK: Trachea midline RESPIRATORY: No increased rate of breathing CTAB CARDIOVASCULAR: RRR, no peripheral edema ABDOMINAL: Non-distended soft nontender MUSCULOSKELETAl: No obvious deformities NEURO: Alert. Moving 4/4 extremities SKIN:: Warm, dry. Normal color PSYCHIATRIC: Normal affect Course Vital Signs Vital signs: Vital Signs Temperature 98.5 F 10/27/24 01:49 Pulse Rate 80 10/27/24 01:49 Respiratory Rate 20 10/27/24 01:49 Blood Pressure 108/96 H 10/27/24 01:49 Pulse Oximetry 93 10/27/24 01:49 Oxygen Delivery Room Air 10/27/24 01:49 Temperature 98.5 F 10/27/24 01:49 Pulse Rate 67 10/27/24 04:27 Respiratory Rate 18 10/27/24 04:27 Blood Pressure 113/85 10/27/24 04:27 Pulse Oximetry 100 10/27/24 04:27 Oxygen Delivery Room Air 10/27/24 01:49 Medical Decision Making MDM Narrative Medical decision making narrative: -Course: 49-year-old female history of alcoholism presenting intoxicated. Alcohol level 134. CT head negative. Blood sugar normal. Patient has a history of alcoholic liver cirrhosis screening lab work was obtained. Bilirubin and liver function is at baseline. Mental status continued improve. EToh intoxication more likely the cause of her AMS than hepatic encephalopathy. She was cardiac monitored throughout her stay and did not have any recurrence of her SVT throughout her stay. Further workup can be performed on an outpatient basis with Cardiology Patient was re-evaluated is clinically sober. She is able to walk around the ED with a steady gait. She will be discharged back to the prison. Given return precautions. -DDX includes but is not limited to:ETOH, Polysubstance abuse Vital Signs Vital Signs: Vital Signs Temperature 98.5 F 10/27/24 01:49 Pulse Rate 80 10/27/24 01:49 Respiratory Rate 20 10/27/24 01:49 Blood Pressure 108/96 H 10/27/24 01:49 Pulse Oximetry 93 10/27/24 01:49 Oxygen Delivery Room Air 10/27/24 01:49 Temperature 98.5 F 10/27/24 01:49 Pulse Rate 67 10/27/24 04:27 Respiratory Rate 18 10/27/24 04:27 Blood Pressure 113/85 10/27/24 04:27 Pulse Oximetry 100 10/27/24 04:27 Oxygen Delivery Room Air 10/27/24 01:49 Lab Data 10/27/24 06:05 10/27/24 06:05 Labs: Lab Results 10/27/24 10/27/24 10/27/24 Range/Units 02:52 05:19 06:05 WBC 8.6 (4.5-10.0) K/mm3 RBC 5.26 (4.2-5.4) M/mm3 Hgb 15.5 H D (12.0-15.0) g/dL Hct 46.1 (37.0-47.0) % MCV 87.6 (80-100) fl MCH 29.5 (26-34) pg MCHC 33.6 (32-36) g/dl RDW 16.8 H (11.5-14.5) % Plt Count 158 (150-375) k/mm3 MPV 9.8 (7.4-10.4) fl Immature Gran % (Auto) 0.5 (0-0.5) % Neut % (Auto) 65.5 (45.5-73.1) % Lymph % (Auto) 21.6 (18.3-44.2) % [place] % (Auto) 11.0 H (2.6-8.5) % Eos % (Auto) 0.7 (0-4.4) % Baso % (Auto) 0.7 (0.2-1.2) % Lymph # (Auto) 1.85 (0.9-3.2) K/mm3 [place] # (Auto) 0.9 H (0.1-0.6) K/mm3 Eos # (Auto) 0.1 (0-0.3) K/mm3 Baso # (Auto) 0.1 (0.0-0.1) K/mm3 Abs Immat Gran (auto) 0.04 H (0.00-0.031) K/mm3 Absolute Neuts (auto) 5.6 (1.3-6.7) K/mm3 Absolute Nucleated RBC 0.000 (0.0-0.012) K/mm3 Nucleated RBC % 0.0 (0.0-0.2) % PT 17.8 H (11.1-14.7) Seconds INR 1.5 APTT 37.5 H (22.3-36.8) Seconds Sodium 141 (137-145) mmol/L Potassium 3.5 (3.4-5.0) mmol/L Chloride 112 H (98-107) mmol/L Carbon Dioxide 16 L (22-30) mmol/L Anion Gap 13 H (4-12) mmol/L BUN 8 (7-17) mg/dL Creatinine 0.49 L (0.7-1.0) mg/dL Estim Creat Clear Calc 110 ml/min Estimated GFR > 60 (59 - ) Glucose 121 H (65-110) mg/dL POC Capillary Glucose 114 H (65-105) mg/dl Calcium 9.1 (8.4-10.2) mg/dL Phosphorus 3.8 (2.5-4.5) mg/dL Magnesium 1.6 (1.6-2.3) mg/dL Total Bilirubin 2.8 H (0.2-1.3) mg/dL AST 42 H (14-36) U/L ALT 21 (6-35) U/L Alkaline Phosphatase 173 H (38-126) U/L Ammonia 51 H (9-30) umol/L Total Protein 7.2 (6.3-8.2) g/dL Albumin 3.8 (3.5-5.1) g/dL Lipase < 10 L (23-300) U/L Urine Color Yellow (Yellow) Urine Appearance Clear (Clear) Urine pH 5.5 (5.0-9.0) Ur Specific [place] 1.010 (1.001-1.035) Urine Protein Negative (Negative) mg/dL Urine Glucose (UA) Negative (Negative) mg/dL Urine Ketones Negative (Negative) mg/dL Ur Blood (Man) Negative (Negative) Urine Nitrate Negative (Negative) Urine Bilirubin Negative (Negative) Urine Urobilinogen 0.2 (<2.0) mg/dL Leukocyte Esterase Rfl Trace H (Negative) KELSEA/UL Urine RBC 0-2 (0-2) /hpf Urine WBC 0-5 (0-3) /hpf Ur Squamous Epith Cells Occasional (Few) /hpf Urine Bacteria 4+ H /hpf Urine Casts 0-2 POC Urine HCG, Qual (Negative) Urine Opiates Screen Negative (Negative) Urine Methadone Screen Negative (Negative) Ur Barbiturates Screen Negative (Negative) Ur Phencyclidine Scrn Negative (Negative) Ur Amphetamine Screen Negative (Negative) U Benzodiazepines Scrn Negative (Negative) Urine Cocaine Screen Negative (Negative) U Cannabinoids Screen Negative (Negative) Ethyl Alcohol 134 93 (<10) mg/dL /05/11 Range/Units 06:10 WBC (4.5-10.0) K/mm3 RBC (4.2-5.4) M/mm3 Hgb (12.0-15.0) g/dL Hct (37.0-47.0) % MCV (80-100) fl MCH (26-34) pg MCHC (32-36) g/dl RDW (11.5-14.5) % Plt Count (150-375) k/mm3 MPV (7.4-10.4) fl Immature Gran % (Auto) (0-0.5) % Neut % (Auto) (45.5-73.1) % Lymph % (Auto) (18.3-44.2) % [place] % (Auto) (2.6-8.5) % Eos % (Auto) (0-4.4) % Baso % (Auto) (0.2-1.2) % Lymph # (Auto) (0.9-3.2) K/mm3 [place] # (Auto) (0.1-0.6) K/mm3 Eos # (Auto) (0-0.3) K/mm3 Baso # (Auto) (0.0-0.1) K/mm3 Abs Immat Gran (auto) (0.00-0.031) K/mm3 Absolute Neuts (auto) (1.3-6.7) K/mm3 Absolute Nucleated RBC (0.0-0.012) K/mm3 Nucleated RBC % (0.0-0.2) % PT (11.1-14.7) Seconds INR APTT (22.3-36.8) Seconds Sodium (137-145) mmol/L Potassium (3.4-5.0) mmol/L Chloride (98-107) mmol/L Carbon Dioxide (22-30) mmol/L Anion Gap (4-12) mmol/L BUN (7-17) mg/dL Creatinine (0.7-1.0) mg/dL Estim Creat Clear Calc ml/min Estimated GFR (59 - ) Glucose (65-110) mg/dL POC Capillary Glucose (65-105) mg/dl Calcium (8.4-10.2) mg/dL Phosphorus (2.5-4.5) mg/dL Magnesium (1.6-2.3) mg/dL Total Bilirubin (0.2-1.3) mg/dL AST (14-36) U/L ALT (6-35) U/L Alkaline Phosphatase (38-126) U/L Ammonia (9-30) umol/L Total Protein (6.3-8.2) g/dL Albumin (3.5-5.1) g/dL Lipase (23-300) U/L Urine Color (Yellow) Urine Appearance (Clear) Urine pH (5.0-9.0) Ur Specific [place] (1.001-1.035) Urine Protein (Negative) mg/dL Urine Glucose (UA) (Negative) mg/dL Urine Ketones (Negative) mg/dL Ur Blood (Man) (Negative) Urine Nitrate (Negative) Urine Bilirubin (Negative) Urine Urobilinogen (<2.0) mg/dL Leukocyte Esterase Rfl (Negative) KELSEA/UL Urine RBC (0-2) /hpf Urine WBC (0-3) /hpf Ur Squamous Epith Cells (Few) /hpf Urine Bacteria /hpf Urine Casts POC Urine HCG, Qual Negative (Negative) Urine Opiates Screen (Negative) Urine Methadone Screen (Negative) Ur Barbiturates Screen (Negative) Ur Phencyclidine Scrn (Negative) Ur Amphetamine Screen (Negative) U Benzodiazepines Scrn (Negative) Urine Cocaine Screen (Negative) U Cannabinoids Screen (Negative) Ethyl Alcohol (<10) mg/dL Discharge Plan Discharge Clinical Impression: Blood alcohol level of 120-199 mg/100 ml, SVT (supraventricular tachycardia) Patient Disposition: Home Condition: Stable Instructions: Antibiotic Form, Supraventricular Tachycardia (ED), Alcohol Intoxication (ED) Additional Instructions: Amee was seen in the emergency department for alcohol intoxication. She should refrain from using alcohol. She should return to the emergency department if she develops any new or worsening symptoms. Amee had an episode of SVT in the ambulance. She can follow up with the granite setter below for further management. Patient Language: Vietnamese Prescriptions: No Action folic acid 1 mg tablet 1 mg PO DAILY hydroxyzine HCl 25 mg tablet 25 mg PO BID PRN (Reason: anxiety) lactulose 10 gram/15 mL solution 10 g PO TID magnesium oxide-Mg AA chelate 300 mg capsule 1 cap PO DAILY Rx Instructions: 300mg melatonin 10 mg capsule 10 mg PO HS pantoprazole 40 mg tablet,delayed release (DR/EC) 40 mg PO QAM trazodone 50 mg tablet 50 mg PO HS thiamine HCl (vitamin B1) 100 mg capsule 100 mg PO DAILY Xifaxan 550 mg tablet 550 mg PO BID potassium chloride [K-Tab] 20 mEq Tablet Extended Release 20 meq PO DAILY@0800 Qty: 30 0RF insulin lispro [Humalog Red Warner U-100] 100 unit/mL insulin pen, half- unit 1 sliding scale dose subcut USEASDIRECTD neomycin 500 mg tablet 500 mg PO BID paroxetine HCl 20 mg tablet 10 mg PO QAM Follow-up/Referrals: Dannie Connor MD [Physician] - 1 Week (SVT) PHYSICIAN NOT ON STAFF,NONSTAFF [Primary Care Provider] -
[2024-10-27 05:22] LABS: Glucose Point of Care 114 mg/dl (65-105)
[2024-10-27 06:12] LABS: BEDSIDEPREGUCG Negative (Negative)
[2024-10-27 06:16] LABS: Basophils Absolute Auto 0.1 K/mm3 (0.0-0.1); Basophils Percent Auto 0.7 % (0.2-1.2); Eosinophils Absolute Auto 0.1 K/mm3 (0-0.3); Eosinophils Percent Auto 0.7 % (0-4.4); Hematocrit 46.1 % (37.0-47.0); Hemoglobin 15.5 g/dL (12.0-15.0); Immature Granulocyte Absolute 0.04 K/mm3 (0.00-0.031); Immature Granulocyte Percent A 0.5 % (0-0.5); Lymphocytes Absolute Auto 1.85 K/mm3 (0.9-3.2); Lymphocytes Percent Auto 21.6 % (18.3-44.2); Mean Corpuscular HGB Conc 33.6 g/dl (32-36); Mean Corpuscular Hemoglobin 29.5 pg (26-34); Mean Corpuscular Volume 87.6 fl (80-100); Mean Platelet Volume 9.8 fl (7.4-10.4); Monocytes Absolute Auto 0.9 K/mm3 (0.1-0.6); Neutrophils Absolute Auto 5.6 K/mm3 (1.3-6.7); Neutrophils Percent Auto 65.5 % (45.5-73.1); Platelet Count Result 158 k/mm3 (150-375); Red Blood Count 5.26 M/mm3 (4.2-5.4); Red Cell Distribution Width 16.8 % (11.5-14.5); White Blood Count 8.6 K/mm3 (4.5-10.0)
[2024-10-27 06:20] LABS: Add Urine Microscopic? YES; Appearance Urine Clear (Clear); Bacteria Urine 4+ /hpf; Bilirubin Urine Negative (Negative); Blood Urine Negative (Negative); Color Urine Yellow (Yellow); Glucose Urine UA Negative (Negative); Ketones Urine Negative (Negative); Leukocyte Esterase Ur Trace LEU/UL (Negative); Nitrate Urine Negative (Negative); Non Pathogenic Casts 0-2; Protein Urine Negative (Negative); RBC Urine 0-2 /hpf (0-2); Squamous Epithelial Cell Urine Occasional /hpf (Few); Urobilinogen Urine 0.2 mg/dL (<2.0); WBC Urine 0-5 /hpf (0-3); pH Urine 5.5 (5.0-9.0)
[2024-10-27 06:24] LABS: Ammonia 51 umol/L (9-30); Ethanol 93 mg/dL (<10)
[2024-10-27 06:25] LABS: Magnesium 1.6 mg/dL (1.6-2.3); Phosphorus 3.8 mg/dL (2.5-4.5)
[2024-10-27 06:28] LABS: Partial Thromboplastin Time 37.5 Seconds (22.3-36.8)
[2024-10-27 06:30] LABS: Lipase < 10 U/L (23-300)
[2024-10-27 06:32] LABS: Amphetamine Screen Urine Negative (Negative); Barbiturate Screen Urine Negative (Negative); Benzodiazepines Screen Urine Negative (Negative); Cannabinoid Screen Urine Negative (Negative); Cocaine Screen Urine Negative (Negative); Methadone Screen Urine Negative (Negative); Opiate Screen Urine Negative (Negative); Phencyclidine Screen Urine Negative (Negative)
[2024-10-27 06:34] LABS: Alanine Aminotransferase 21 U/L (6-35); Albumin Level 3.8 g/dL (3.5-5.1); Alkaline Phosphatase 173 U/L (38-126); Anion Gap 13 mmol/L (4-12); Aspartate Amino Transferase 42 U/L (14-36); Bilirubin,Total 2.8 mg/dL (0.2-1.3); Blood Urea Nitrogen 8 mg/dL (7-17); Calcium 9.1 mg/dL (8.4-10.2); Carbon Dioxide 16 mmol/L (22-30); Chloride 112 mmol/L (98-107); Estimated CRCL calculation 110 ml/min; Estimated Glomerular Filt Rate > 60; Glucose 121 mg/dL (65-110); Potassium 3.5 mmol/L (3.4-5.0); Sodium 141 mmol/L (137-145); Total Protein 7.2 g/dL (6.3-8.2)
[2024-10-27 06:35] LABS: INR 1.5; Prothrombin Time 17.8 Seconds (11.1-14.7)
[2024-10-27 07:13] VITALS: BP 120/86; PULSE 74; RESP 14; O2SAT 98
== END 2024-10-27 07:59 ==
PROVIDERS: Emergency Provider Emergency Medicine
DX: F10.229 Alcohol dependence with intoxication, unspecified (principal); Y90.6 Blood alcohol level of 120-199 mg/100 ml; I47.10 Supraventricular tachycardia, unspecified; I48.91 Unspecified atrial fibrillation; E11.9 Type 2 diabetes mellitus without complications; G31.2 Degeneration of nervous system due to alcohol; K70.30 Alcoholic cirrhosis of liver without ascites; K70.10 Alcoholic hepatitis without ascites; K86.1 Other chronic pancreatitis; F32.A Depression, unspecified; Z79.4 Long term (current) use of insulin; Z79.899 Other long term (current) drug therapy
CPT/HCPCS: 36415; 70450; 71045; 80053; 80307; 81001; 81025; 82077; 82140; 82948; 83690; 83735; 84100; 85025; 85610; 85730; 93005; 99284; L0140

== ENCOUNTER 2024-11-30 12:41 | Emergency (ER) | payer OTHER, SELFPAY ==
[2024-11-30] VITALS (13 sets, daily range): BP systolic 132–149; BP diastolic 69–82; PULSE 65–73; RESP 18–24; TEMP 36.8; O2SAT 84–100
--- NOTE | ~2024-11-30 | XR_ITS ---
XR chest 1V portable Ordering provider: Nelda Calderon MD History: 49 years Female with . low O2 . Comparison: October 27, 2024 FINDINGS: MEDIASTINUM: The cardiac silhouette is not enlarged. LUNGS: No infiltrates, effusions or pneumothorax. Prominent markings seen bilaterally. OTHER: No free air under the diaphragm. IMPRESSION: No acute cardiopulmonary pathology. Reviewed, dictated and finalized at location A.
--- OUTSIDE RECORDS SUMMARY | 2024-11-30 12:44 | XMS_ITS | Clinical Summary ---
Author Organization [facility] Address [address] [place] [address] Care Team Providers Care Ludlow Machine Operator Name Role Phone Unavailable Primary Care Provider Unavailabl e Source Comments [facility],non-owned Affiliates and Associated Physician Practices is amultiple site organization consisting of ambulatory clinics and hospital sitesin [place], [place], [place] and [place]. This disclosure is being madepursuant to the Care Everywhere program and may not contain all information available regarding this patient. Last updated 18.[facility] Encounters Date Type Department Care Team Description 11/28/2024 Lab Requisition [facility] [address] [place] [address] Aaron Tijerina 11/26/2024 Lab Requisition [facility] [address] [place] [address] Unknown, Provider from Last 3 Months Social History Tobacco Use Types Packs/Day Years Used Date Smoking Tobacco: Never Assessed Comments Unknown Sex and Gender Information Value Date Recorded Sex Assigned at Not on file Legal Sex Female 2:12 PM CDT Gender Identity Not on file Sexual Orientation Not on file Plan of Treatment Health Maintenance Due Date Last Done Comments COLOGUARD (AGES 45-75) - COL ON CA SCREENING 1973 COLON MONITORING 1973 COLONOSCOPY - COLON CA SCREENING 1973 CT COLONOGRAPHY - COLON CA SCREENING 1973 Colorectal Cancer Screening 1973 FIT - COLON CA SCREENING 1973 FLEX SIG - COLON CA SCREENING 1973 LIPID TESTING 1973 MAMMOGRAM 1973 HIV SCREENING 02/16/1988 HEPATITIS C SCREENING 02/11/1991 DTAP/TDAP/TD VACCINES (1 - Tdap) 02/16/1992 HEPATITIS B VACCINE (1 of 3 - 19+ 3-dose series) 02/16/1992 PAP SMEAR 1994 PNEUMOCOCCAL VACCINE 50+ (1 of 1 - PCV) 2023 ZOSTER VACCINE (1 of 2) 2023 COVID-19 VACCINE (1 - 2023-2 5 season) 2024 DEPRESSION SCREENING 05/18/2024 INFLUENZA VACCINE (#1) 2025 HIB VACCINE Aged Out No longer eligi ble based on patient's age to complete this topic HPV VACCINE Aged Out No longer eligi ble based on patient's age to complete this topic MENINGOCOCCAL (Group B) VACC INE SHARED DECISION-MAKING Aged Out No longer eligibl e based on patient's age to complete this topic MENINGOCOCCAL GROUPS A/C/Y/W VACCINE Aged Out No longer eligible b ased on patient's age to complete this topic Procedures Procedure Name Priority Date/Time Associated Diagnosis Comments COMPREHENSIVE METABOLIC PANEL STAT 11/28/2024 4:30 PM CDT CBC W AUTO DIFFERENTIAL STAT 11/28/2024 4:30 PM CDT AMMONIA STAT 11/28/2024 4:30 PM CDT COMPREHENSIVE METABOLIC PANEL STAT 11/26/2024 6:00 PM CDT CBC W AUTO DIFFERENTIAL STAT 11/26/2024 6:00 PM CDT from Last 3 Months Results * (ABNORMAL) CBC WITH DIFFERENTIAL (11/28/2024 4:30 PM CDT) Only the most recent of2 resultswithin the time period is included. WBC 6.5 4.0 - 10.7 x10E9/L 11/28/2024 5:47 PM CDT [facility] RBC Count 5.50(H) 3.90 - 5.20 x10E12/L 11/28/2024 5:47 PM CDT [facility] Hemoglobin 16.3(H) 11.9 - 15.8 g/dL 11/28/2024 5:47 PM CDT [facility] Hematocrit 49.1(H) 34.8 - 46.1 % 11/28/2024 5:47 PM CDT [facility] MCV 89.3 80.0 - 98.0 fL 11/28/2024 5:47 PM CDT [facility] MCH 29.6 26.7 - 33.6 pg 11/28/2024 5:47 PM CDT [facility] MCHC 33.2 31.7 - 36.3 g/dL 11/28/2024 5:47 PM CDT [facility] RDW-CV 18.6(H) 11.3 - 14.8 % 11/28/2024 5:47 PM CDT [facility] Platelet Count 119(L) 150 - 420 x10E9/L 11/28/2024 5:47 PM CDT [facility] MPV 9.9 7.8 - 11.4 fL 11/28/2024 5:47 PM CDT [facility] Neutrophil % 60.8 41.0 - 74.0 % 11/28/2024 5:47 PM CDT [facility] Lymphocyte % 22.8 17.0 - 47.0 % 11/28/2024 5:47 PM CDT [facility] Monocyte % 14.1(H) 3.0 - 11.0 % 11/28/2024 5:47 PM CDT [facility] Eosinophil % 1.4 0.0 - 7.0 % 11/28/2024 5:47 PM CDT [facility] Basophil % 0.6 0.0 - 1.6 % 11/28/2024 5:47 PM CDT [facility] Immature Granulocytes % 0.3 0.0 - 1.0 % 11/28/2024 5:47 PM CDT [facility] Neutrophil Absolute 3.97 1.60 - 7.50 x10E9/L 11/28/2024 5:47 PM CDT [facility] Lymphocyte Absolute 1.49 1.00 - 4.40 x10E9/L 11/28/2024 5:47 PM CDT [facility] Monocyte Absolute 0.92 0.15 - 1.00 x10E9/L 11/28/2024 5:47 PM CDT [facility] Eosinophil Absolute 0.09 0.00 - 0.60 x10E9/L 11/28/2024 5:47 PM CDT [facility] Basophil Absolute 0.04 0.00 - 0.13 x10E9/L 11/28/2024 5:47 PM CDT [facility] Blood BLOOD SPECIMEN / Unknown Lab Venipuncture / Unknown 11/28/2024 4:30 PM CDT 11/28/2024 5:17 PM CDT Aaron Tijerina LAB - HEMATOLOGY ORDERABLES Fin al Result [facility] [address] [place] [address] * (ABNORMAL) COMPREHENSIVE METABOLIC PANEL (11/28/2024 4:30 PM CDT) Only the most recent of2 resultswithin the time period is included. Glucose 106(H) 70 - 99 mg/dL 11/28/2024 5:58 PM T [facility] Sodium 138 136 - 145 mmol/L 11/28/2024 5:58 PM T [facility] Potassium 3.4(L) 3.5 - 5.1 mmol/L 11/28/2024 5:58 PM T [facility] Chloride 110(H) 98 - 107 mmol/L 11/28/2024 5:58 PM T [facility] CO2 16(L) 22 - 29 mmol/L 11/28/2024 5:58 PM T [facility] Calcium 9.1 8.4 - 10.4 mg/dL 11/28/2024 5:58 PM T [facility] Anion Gap 12 6 - 16 mmol/L 11/28/2024 5:58 PM T [facility] BUN 16 7 - 26 mg/dL 11/28/2024 5:58 PM T [facility] Creatinine 0.63 0.57 - 1.11 mg/dL 11/28/2024 5:58 PM T [facility] Alkaline Phosphatase 163(H) 40 - 150 U/L 11/28/2024 5:58 PM CDT [facility] ALT 17 6 - 57 U/L 11/28/2024 5:58 PM CDT [facility] AST 50(H) 10 - 48 U/L 11/28/2024 5:58 PM CDT [facility] Protein Total 7.8 6.4 - 8.3 gm/dL 11/28/2024 5:58 PM CDT [facility] Albumin 3.7 3.1 - 4.5 gm/dL 11/28/2024 5:58 PM CDT [facility] Bilirubin Total 3.7(H) 0.2 - 1.2 mg/dL 11/28/2024 5:58 PM CDT [facility] eGFR by CKD-EPI >90 >=90 mL/min/1.7 3 m2 11/28/2024 5:58 PM CDT [facility] Comment:Estimated Glomerular Filtration Rate (eGFR) calculated using the CKD-EPI Creatinine Equation (2020), per the National Kidney Foundation and [place] Society [employer] Nephrology recommendations. Blood BLOOD SPECIMEN / Unknown Venipuncture / Unknown 11/28/2024 4:30 PM CDT 11/28/2024 5:17 PM [facility]T [facility] - CHEMISTRY ORDERABLES Dawn l Result Performing Organization Address City/[facility]/ZIP Co de Phone Number [facility] [address] [place] [id number] * (ABNORMAL) AMMONIA (11/28/2024 4:30 PM CDT) [facility] Signature Ammonia 155(H) 18 - 72 umol/L 11/28/2024 5:45 PM CDT [facility] Blood BLOOD SPECIMEN / Unknown Venipuncture / Unknown 11/28/2024 4:30 PM CDT 11/28/2024 5:17 PM CDT [employer] [facility] LAB - CHEMISTRY ORDERABLES Dawn l Result [facility] [address] [place] [address] from Last 3 Months
--- OUTSIDE RECORDS SUMMARY | 2024-11-30 12:44 | XMS_ITS | Encounter Summary ---
Author Organization [facility] Address [address] [place] [address] Care Team Providers Care Transitions Manager Rn Name Role Phone Unavailable Primary Care Provider Unavailabl e Encounter Details Date Type Department Care Team (Late st Contact Info) Description 11/28/2024 Lab Requisition [facility] [address] [place] [address] [place] [address] Social History Tobacco Use Types Packs/Day Years Used Date Smoking Tobacco: Never Assessed Comments Unknown Sex and Gender Information Value Date Recorded Sex Assigned at Not on file Legal Sex Female 2:12 PM CDT Gender Identity Not on file Sexual Orientation Not on file documented as of this encounter Plan of Treatment Not on file documented as of this encounter Procedures Procedure Name Priority Date/Time Associated Diagnosis Comments CBC W AUTO DIFFERENTIAL STAT 11/28/2024 4:30 PM CDT COMPREHENSIVE METABOLIC PANEL STAT 11/28/2024 4:30 PM CDT AMMONIA STAT 11/28/2024 4:30 PM CDT documented in this encounter Results * (ABNORMAL) COMPREHENSIVE METABOLIC PANEL (11/28/2024 4:30 PM CDT) Glucose 106(H) 70 - 99 mg/dL 11/28/2024 5:58 PM CDT [facility] Sodium 138 136 - 145 mmol/L 11/28/2024 5:58 PM CDT [facility] Potassium 3.4(L) 3.5 - 5.1 mmol/L 11/28/2024 5:58 PM CDT [facility] Chloride 110(H) 98 - 107 mmol/L 11/28/2024 5:58 PM T [facility] CO2 16(L) 22 - 29 mmol/L 11/28/2024 5:58 PM CDT [facility] Calcium 9.1 8.4 - 10.4 mg/dL 11/28/2024 5:58 PM [facility] Anion Gap 12 6 - 16 mmol/L 11/28/2024 5:58 PM CDT [facility] BUN 16 7 - 26 mg/dL 11/28/2024 5:58 PM CDT [facility] Creatinine 0.63 0.57 - 1.11 mg/dL 11/28/2024 5:58 PM T [facility] Alkaline Phosphatase 163(H) 40 - 150 U/L 11/28/2024 5:58 PM CDT [facility] ALT 17 6 - 57 U/L 11/28/2024 5:58 PM T [facility] AST 50(H) 10 - 48 U/L 11/28/2024 5:58 PM T [facility] Protein Total 7.8 6.4 - 8.3 gm/dL 11/28/2024 5:58 PM T [facility] Albumin 3.7 3.1 - 4.5 gm/dL 11/28/2024 5:58 PM T [facility] Bilirubin Total 3.7(H) 0.2 - 1.2 mg/dL 11/28/2024 5:58 PM [facility] eGFR by CKD-EPI >90 >=90 mL/min/1.7 3 m2 11/28/2024 5:58 PM [facility] Comment:Estimated Glomerular Filtration Rate (eGFR) calculated using the CKD-EPI Creatinine Equation (2020), per the National Kidney Foundation and [place] Society of Nephrology recommendations. Blood BLOOD SPECIMEN / Unknown Venipuncture / Unknown 11/28/2024 4:30 PM CDT 11/28/2024 5:17 PM CDT [facility] LAB - CHEMISTRY ORDERABLES Dawn l Result [facility] [address] [place] [address] * (ABNORMAL) CBC WITH DIFFERENTIAL (11/28/2024 4:30 PM CDT) [facility] WBC 6.5 4.0 - 10.7 x10E9/L 11/28/2024 5:47 PM CDT [facility] RBC Count 5.50(H) 3.90 - 5.20 x10E12/L 11/28/2024 5:47 PM CDT [facility] Hemoglobin 16.3(H) 11.9 - 15.8 g/dL 11/28/2024 5:47 PM CDT [facility] Hematocrit 49.1(H) 34.8 - 46.1 % 11/28/2024 5:47 PM CDT [facility] MCV 89.3 80.0 - 98.0 fL 11/28/2024 5:47 PM CDT [facility] MCH 29.6 26.7 - 33.6 pg 11/28/2024 5:47 PM CDT [facility] MCHC 33.2 31.7 - 36.3 g/dL 11/28/2024 5:47 PM [address] [facility] RDW-CV 18.6(H) 11.3 - 14.8 % 11/28/2024 5:47 PM [address] [facility] Platelet Count 119(L) 150 - 420 x10E9/L 11/28/2024 5:47 PM CDT [facility] MPV 9.9 7.8 - 11.4 fL 11/28/2024 5:47 PM [address] [facility] Neutrophil % 60.8 41.0 - 74.0 % 11/28/2024 5:47 PM CDT [facility] Lymphocyte % 22.8 17.0 - 47.0 % 11/28/2024 5:47 PM CDT [facility] Monocyte % 14.1(H) 3.0 - 11.0 % 11/28/2024 5:47 PM CDT [facility] Eosinophil % 1.4 0.0 - 7.0 % 11/28/2024 5:47 PM CDT [facility] Basophil % 0.6 0.0 - 1.6 % 11/28/2024 5:47 PM CDT [facility] Immature Granulocytes % 0.3 0.0 - 1.0 % 11/28/2024 5:47 PM CDT [facility] Neutrophil Absolute 3.97 1.60 - 7.50 x10E9/L 11/28/2024 5:47 [address] [facility] Lymphocyte Absolute 1.49 1.00 - 4.40 x10E9/L 11/28/2024 5:47 PM [address] [facility] Monocyte Absolute 0.92 0.15 - 1.00 x10E9/L 11/28/2024 5:47 PM CDT [facility] Eosinophil Absolute 0.09 0.00 - 0.60 x10E9/L 11/28/2024 5:47 PM [address] [facility] Basophil Absolute 0.04 0.00 - 0.13 x10E9/L 11/28/2024 5:47 PM [address] [facility] Blood BLOOD SPECIMEN / Unknown Lab Venipuncture / Unknown 11/28/2024 4:30 PM CDT 11/28/2024 5:17 PM CDT [facility] LAB - HEMATOLOGY ORDERABLES Fin al Result Performing Organization Address City/[facility]/ZIP Co de Phone Number [facility] [address] [place] [address] * (ABNORMAL) AMMONIA (11/28/2024 4:30 PM CDT) Ammonia 155(H) 18 - 72 umol/L 11/28/2024 5:45 PM [address] [facility] Blood BLOOD SPECIMEN / Unknown Venipuncture / Unknown 11/28/2024 4:30 PM CDT 11/28/2024 5:17 PM CDT Aaron Lilliana LAB - CHEMISTRY ORDERABLES Dawn l Result [facility] [address] [place] [address] documented in this encounter Visit Diagnoses Not on filedocumented in this encounter
--- OUTSIDE RECORDS SUMMARY | 2024-11-30 12:44 | XMS_ITS | Encounter Summary ---
Author Organization [facility] Address [address] [place] [address] [place] [address] Care Team Providers Care Vp Biology Name Role Phone Unavailable Primary Care Provider Unavailabl e Encounter Details Date Type Department Care Team (Late st Contact Info) Description 11/26/2024 Lab Requisition [facility] [address] [place] [address] Unknown, Provider Social History Tobacco Use Types Packs/Day Years [...] Diagnosis Comments CBC W AUTO DIFFERENTIAL STAT 11/26/2024 6:00 PM CDT COMPREHENSIVE METABOLIC PANEL STAT 11/26/2024 6:00 PM CDT documented in this encounter Results * (ABNORMAL) COMPREHENSIVE METABOLIC PANEL (11/26/2024 6:00 PM CDT) Glucose 81 70 - 99 mg/dL 11/26/2024 7:12 PM CDT [facility] Sodium 141 136 - 145 mmol/L 11/26/2024 7:12 PM CDT [facility] Potassium 3.6 3.5 - 5.1 mmol/L 11/26/2024 7:12 PM CDT [facility] Chloride 113(H) 98 - 107 mmol/L 11/26/2024 7:12 PM CDT [facility] CO2 18(L) 22 - 29 mmol/L 11/26/2024 7:12 PM CDT [facility] Calcium 8.9 8.4 - 10.4 mg/dL 11/26/2024 7:12 PM T [facility] Anion Gap 10 6 - 16 mmol/L 11/26/2024 7:12 PM CDT [facility] BUN 10 7 - 26 mg/dL 11/26/2024 7:12 PM CDT [facility] Creatinine 0.62 0.57 - 1.11 mg/dL 11/26/2024 7:12 PM [facility] Alkaline Phosphatase 163(H) 40 - 150 U/L 11/26/2024 7:12 PM CDT [facility] ALT 16 6 - 57 U/L 11/26/2024 7:12 PM T [facility] AST 37 10 - 48 U/L 11/26/2024 7:12 PM T [facility] Protein Total 7.5 6.4 - 8.3 gm/dL 11/26/2024 7:12 PM [facility] Albumin 3.5 3.1 - 4.5 gm/dL 11/26/2024 7:12 PM [facility] Bilirubin Total 4.4(H) 0.2 - 1.2 mg/dL 11/26/2024 7:12 PM [facility] eGFR by CKD-EPI >90 >=90 mL/min/1.7 3 m2 11/26/2024 7:12 PM [facility] Comment:Estimated Glomerular Filtration Rate (eGFR) calculated using the CKD-EPI Creatinine Equation (2020), per the National Kidney Foundation and [place] Society of Nephrology recommendations. Blood BLOOD SPECIMEN / Unknown Venipuncture / Unknown 11/26/2024 6:00 PM CDT 11/26/2024 6:42 PM CDT us Provider Unknown LAB - CHEMISTRY ORDERABLES Dawn l Result [facility] [address] [place] [address] * (ABNORMAL) CBC WITH DIFFERENTIAL (11/26/2024 6:00 PM CDT) WBC 5.7 4.0 - 10.7 x10E9/L 11/26/2024 7:[address] [facility] RBC Count 5.20 3.90 - 5.20 x10E12/L 11/26/2024 7:09 PM [facility] Hemoglobin 15.5 11.9 - 15.8 g/dL 11/26/2024 7:09 PM [facility] Hematocrit 46.5(H) 34.8 - 46.1 % 11/26/2024 7:09 PM [facility] MCV 89.4 80.0 - 98.0 fL 11/26/2024 7:09 PM [facility] MCH 29.8 26.7 - 33.6 pg 11/26/2024 7:09 PM [facility] MCHC 33.3 31.7 - 36.3 g/dL 11/26/2024 7:09 PM [facility] RDW-CV 18.1(H) 11.3 - 14.8 % 11/26/2024 7:09 PM [facility] Platelet Count 118(L) 150 - 420 x10E9/L 11/26/2024 7:09 PM [facility] MPV 9.9 7.8 - 11.4 fL 11/26/2024 7:09 PM [facility] Neutrophil % 61.3 41.0 - 74.0 % 11/26/2024 7:09 PM [facility] Lymphocyte % 25.6 17.0 - 47.0 % 11/26/2024 7:09 PM [facility] Monocyte % 10.1 3.0 - 11.0 % 11/26/2024 7:09 PM [facility] Eosinophil % 1.8 0.0 - 7.0 % 11/26/2024 7:09 PM [facility] Basophil % 0.7 0.0 - 1.6 % 11/26/2024 7:09 PM [facility] Immature Granulocytes % 0.5 0.0 - 1.0 % 11/26/2024 7:09 PM [facility] Neutrophil Absolute 3.48 1.60 - 7.50 x10E9/L 11/26/2024 7:09 PM [facility] Lymphocyte Absolute 1.45 1.00 - 4.40 x10E9/L 11/26/2024 7:09 PM [facility] Monocyte Absolute 0.57 0.15 - 1.00 x10E9/L 11/26/2024 7:09 PM CDT [facility] Eosinophil Absolute 0.10 0.00 - 0.60 x10E9/L 11/26/2024 7:09 PM CDT [facility] Basophil Absolute 0.04 0.00 - 0.13 x10E9/L 11/26/2024 7:09 PM CDT [facility] Blood BLOOD SPECIMEN / Unknown 11/26/2024 6:00 PM CDT 11/26/2024 6:42 PM CDT us Provider Unknown LAB - HEMATOLOGY ORDERABLES Fin al Result Performing Organization Address City/State/[facility] Co de Phone Number [facility] [address] [place] [address] documented in this encounter Visit Diagnoses Not on filedocumented in this encounter
--- OUTSIDE RECORDS SUMMARY | 2024-11-30 13:10 | XMS_ITS | Encounter Summary ---
Author Organization [facility] Address [address] [place] [address] [place] [address] Care Team Providers Care Pipe Stem Repairer Name Role Phone Unavailable Primary Care Provider Unavailabl e Encounter Details Date Type Department Care Team (Late st Contact Info) Description 11/26/2024 Lab Requisition [facility] [address] [place] [address] Unknown, Provider Social History Tobacco Use Types [...] - 10.4 mg/dL 11/26/2024 7:12 PM T [facility] Anion Gap 10 6 - 16 mmol/L 11/26/2024 7:12 PM CDT [facility] BUN 10 7 - 26 mg/dL 11/26/2024 7:12 PM CDT [facility] Creatinine 0.62 0.57 - 1.11 mg/dL 11/26/2024 7:12 PM [facility] Alkaline Phosphatase 163(H) 40 - 150 U/L 11/26/2024 7:12 PM CDT [facility] ALT 16 6 - 57 U/L 11/26/2024 7:12 PM T [facility] AST 37 10 - 48 U/L 11/26/2024 7:12 PM T [facility] Protein Total 7.5 6.4 - 8.3 gm/dL 11/26/2024 7:12 PM [facility] Albumin 3.5 3.1 - 4.5 gm/dL 11/26/2024 7:12 PM [facility] Bilirubin Total 4.4(H) 0.2 - 1.2 mg/dL 11/26/2024 7:12 PM [facility] eGFR by CKD-EPI >90 >=90 mL/min/1.7 3 m2 11/26/2024 7:12 PM [facility] Comment:Estimated Glomerular Filtration Rate (eGFR) calculated using the CKD-EPI Creatinine Equation (2020), per the National Kidney Foundation and [place] Society of Nephrology recommendations. Blood BLOOD SPECIMEN / Unknown Venipuncture / Unknown 11/26/2024 6:00 PM CDT 11/26/2024 6:42 PM CDT us Provider Unknown LAB - CHEMISTRY ORDERABLES Dawn l Result [facility] [address] [place] [address] * (ABNORMAL) CBC WITH DIFFERENTIAL (11/26/2024 6:00 PM CDT) WBC 5.7 4.0 - 10.7 x10E9/L 11/26/2024 7:09 PM [facility] RBC Count 5.20 3.90 - 5.20 x10E12/L 11/26/2024 7:09 PM [facility] Hemoglobin 15.5 11.9 - 15.8 g/dL 11/26/2024 7:09 PM [facility] Hematocrit 46.5(H) 34.8 - 46.1 % 11/26/2024 7:09 PM [facility] MCV 89.4 80.0 - 98.0 fL 11/26/2024 7:09 PM [facility] MCH 29.8 26.7 - 33.6 pg 11/26/2024 7:09 PM [facility] MCHC 33.3 31.7 - 36.3 g/dL 11/26/2024 7:09 PM [facility] RDW-CV 18.1(H) 11.3 - 14.8 % 11/26/2024 7:09 PM [facility] Platelet Count 118(L) 150 - 420 x10E9/L 11/26/2024 7:09 PM [facility] MPV 9.9 7.8 - 11.4 fL 11/26/2024 7:09 PM [facility] Neutrophil % 61.3 41.0 - 74.0 % 11/26/2024 7:09 PM [facility] Lymphocyte % 25.6 17.0 - 47.0 % 11/26/2024 7:09 PM [facility] Monocyte % 10.1 3.0 - 11.0 % 11/26/2024 7:09 PM [facility] Eosinophil % 1.8 0.0 - 7.0 % 11/26/2024 7:09 PM [facility] Basophil % 0.7 0.0 - 1.6 % 11/26/2024 7:09 PM [facility] Immature Granulocytes % 0.5 0.0 - 1.0 % 11/26/2024 7:09 PM [facility] Neutrophil Absolute 3.48 1.60 - 7.50 x10E9/L 11/26/2024 7:09 PM [facility] Lymphocyte Absolute 1.45 1.00 - 4.40 x10E9/L 11/26/2024 7:09 PM [facility] Monocyte Absolute 0.57 0.15 - 1.00 x10E9/L 11/26/2024 7:09 PM CDT [facility] Eosinophil Absolute 0.10 0.00 - 0.60 x10E9/L 11/26/2024 7:09 PM CDT [facility] Basophil Absolute 0.04 0.00 - 0.13 x10E9/L 11/26/2024 7:09 PM CDT [facility] Blood BLOOD SPECIMEN / Unknown 11/26/2024 6:00 PM CDT 11/26/2024 6:42 PM CDT us Provider Unknown LAB - HEMATOLOGY ORDERABLES Fin al Result Performing Organization Address City/State/[facility] Co de Phone Number [facility] [address] [place] [address] documented in this encounter Visit Diagnoses Not on filedocumented in this encounter
--- OUTSIDE RECORDS SUMMARY | 2024-11-30 13:10 | XMS_ITS | Encounter Summary ---
Author Organization [facility] Address [address] [address] Care Team Providers Care Cement Storage Worker Name Role Phone Unavailable Primary Care Provider Unavailabl e Encounter Details Date Type Department Care Team (Late st Contact Info) Description 11/28/2024 Lab Requisition [facility] [address] [place] [address] [place] [address] Social History Tobacco Use Types Packs/Day Years [...] - 107 mmol/L 11/28/2024 5:58 PM T [facility] CO2 16(L) 22 - 29 mmol/L 11/28/2024 5:58 PM CDT [facility] Calcium 9.1 8.4 - 10.4 mg/dL 11/28/2024 5:58 PM [facility] Anion Gap 12 6 - 16 mmol/L 11/28/2024 5:58 PM CDT [facility] BUN 16 7 - 26 mg/dL 11/28/2024 5:58 PM CDT [facility] Creatinine 0.63 0.57 - 1.11 mg/dL 11/28/2024 5:58 PM T [facility] Alkaline Phosphatase 163(H) 40 - 150 U/L 11/28/2024 5:58 PM CDT [facility] ALT 17 6 - 57 U/L 11/28/2024 5:58 PM T [facility] AST 50(H) 10 - 48 U/L 11/28/2024 5:58 PM T [facility] Protein Total 7.8 6.4 - 8.3 gm/dL 11/28/2024 5:58 PM T [facility] Albumin 3.7 3.1 - 4.5 gm/dL 11/28/2024 5:58 PM T [facility] Bilirubin Total 3.7(H) 0.2 - 1.2 mg/dL 11/28/2024 5:58 PM [facility] eGFR by CKD-EPI >90 >=90 mL/min/1.7 3 m2 11/28/2024 5:58 PM [facility] Comment:Estimated Glomerular Filtration Rate (eGFR) calculated using the CKD-EPI Creatinine Equation (2020), per the National Kidney Foundation and [place] Citizen Society of Nephrology recommendations. Blood BLOOD SPECIMEN / Unknown Venipuncture / Unknown 11/28/2024 4:30 PM CDT 11/28/2024 5:17 PM CDT [facility] LAB - CHEMISTRY ORDERABLES Dawn l Result [facility] [address] [place] [address] * (ABNORMAL) CBC WITH DIFFERENTIAL (11/28/2024 4:30 PM CDT) [facility] WBC 6.5 4.0 - 10.7 x10E9/L 11/28/2024 [...] - 36.3 g/dL 11/28/2024 5:47 PM CDT [facility] RDW-CV 18.6(H) 11.3 - 14.8 % 11/28/2024 5:47 PM CDT [facility] Platelet Count 119(L) 150 - 420 x10E9/L 11/28/2024 5:47 PM CDT [facility] MPV 9.9 7.8 - 11.4 fL 11/28/2024 5:47 PM CDT [facility] Neutrophil % 60.8 41.0 - [...] - 7.50 x10E9/L 11/28/2024 5:47 PM CDT [facility] Lymphocyte Absolute 1.49 1.00 - 4.40 x10E9/L 11/28/2024 5:47 PM CDT [facility] Monocyte Absolute 0.92 0.15 - 1.00 x10E9/L 11/28/2024 5:47 PM CDT [facility] Eosinophil Absolute 0.09 0.00 - 0.60 x10E9/L 11/28/2024 5:47 PM CDT [facility] Basophil Absolute 0.04 0.00 - 0.13 x10E9/L 11/28/2024 5:47 PM CDT [facility] Blood BLOOD SPECIMEN / Unknown Lab Venipuncture / Unknown 11/28/2024 4:30 PM CDT 11/28/2024 5:17 PM CDT [facility] LAB - HEMATOLOGY ORDERABLES Fin al Result Performing Organization Address City/[facility]/ZIP Co de Phone Number [facility] [address] [place] [address] * (ABNORMAL) AMMONIA (11/28/2024 4:30 PM CDT) Ammonia 155(H) 18 - 72 umol/L 11/28/2024 5:45 PM CDT [facility] Blood BLOOD SPECIMEN / Unknown Venipuncture / Unknown 11/28/2024 4:30 PM CDT 11/28/2024 5:17 PM CDT Aaron Lilliana LAB - CHEMISTRY ORDERABLES Dawn l Result [facility] [address] [place] [address] documented in this encounter Visit Diagnoses Not on filedocumented in this encounter
--- OUTSIDE RECORDS SUMMARY | 2024-11-30 13:11 | XMS_ITS | Clinical Summary ---
Author Organization [facility] Address [address] [place] [address] Care Team Providers Care Nuclear Medicine Officer Name Role Phone Unavailable Primary Care Provider Unavailabl e Source Comments [facility],non-owned Affiliates and Associated Physician Practices is amultiple site organization consisting of ambulatory clinics and hospital sitesin [place], [place], [place] and [place]. This disclosure is being madepursuant to the Care Everywhere program and may not contain all information available regarding this patient. Last updated 18.[facility] Encounters Date Type Department Care Team Description 11/28/2024 Lab Requisition [facility] [address] [place] [address] Aaron Tijerina 11/26/2024 Lab Requisition [facility] [address] [place] [address] Unknown, Provider from Last 3 Months Social [...] - 10.7 x10E9/L 11/28/2024 5:47 PM CDT [facility] RBC Count 5.50(H) 3.90 - 5.20 x10E12/L 11/28/2024 5:47 PM CDT [facility] Hemoglobin 16.3(H) 11.9 - 15.8 g/dL 11/28/2024 5:47 PM CDT [facility] Hematocrit 49.1(H) 34.8 - 46.1 % 11/28/2024 5:47 PM CDT [facility] MCV 89.3 80.0 - 98.0 fL 11/28/2024 5:47 PM CDT [facility] MCH 29.6 26.7 - 33.6 pg 11/28/2024 5:47 PM CDT [facility] MCHC 33.2 31.7 - 36.3 g/dL 11/28/2024 5:47 PM CDT [facility] RDW-CV 18.6(H) 11.3 - 14.8 % 11/28/2024 5:47 PM CDT [facility] Platelet Count 119(L) 150 - 420 x10E9/L 11/28/2024 5:47 PM CDT [facility] MPV 9.9 7.8 - 11.4 fL 11/28/2024 5:47 PM CDT [facility] Neutrophil % 60.8 41.0 - 74.0 % 11/28/2024 5:47 PM CDT [facility] Lymphocyte % 22.8 17.0 - 47.0 % 11/28/2024 5:47 PM CDT [facility] Monocyte % 14.1(H) 3.0 - 11.0 % 11/28/2024 5:47 PM CDT [facility] Eosinophil % 1.4 0.0 - 7.0 % 11/28/2024 5:47 PM CDT [facility] Basophil % 0.6 0.0 - 1.6 % 11/28/2024 5:47 PM CDT [facility] Immature Granulocytes % 0.3 0.0 - 1.0 % 11/28/2024 5:47 PM CDT [facility] Neutrophil Absolute 3.97 1.60 - 7.50 x10E9/L 11/28/2024 5:47 PM CDT [facility] Lymphocyte Absolute 1.49 1.00 - 4.40 x10E9/L 11/28/2024 5:47 PM CDT [facility] Monocyte Absolute 0.92 0.15 - 1.00 x10E9/L 11/28/2024 5:47 PM CDT [facility] Eosinophil Absolute 0.09 0.00 - 0.60 x10E9/L 11/28/2024 5:47 PM CDT [facility] Basophil Absolute 0.04 0.00 - 0.13 x10E9/L 11/28/2024 5:47 PM CDT [facility] Blood BLOOD SPECIMEN / Unknown Lab Venipuncture / Unknown 11/28/2024 4:30 PM CDT 11/28/2024 5:17 PM CDT [facility] LAB - HEMATOLOGY ORDERABLES Fin al Result [facility] [address] [place] [address] * (ABNORMAL) COMPREHENSIVE METABOLIC PANEL (11/28/2024 4:30 PM CDT) Only the most recent of2 resultswithin the time period is included. Glucose 106(H) 70 - 99 mg/dL 11/28/2024 5:58 PM T [facility] Sodium 138 136 - 145 mmol/L 11/28/2024 5:58 PM T [facility] Potassium 3.4(L) 3.5 - 5.1 mmol/L 11/28/2024 5:58 PM T [facility] Chloride 110(H) 98 - 107 mmol/L 11/28/2024 5:58 PM T [facility] CO2 16(L) 22 - 29 mmol/L 11/28/2024 5:58 PM T [facility] Calcium 9.1 8.4 - 10.4 mg/dL 11/28/2024 5:58 PM T [facility] Anion Gap 12 6 - 16 mmol/L 11/28/2024 5:58 PM T [facility] BUN 16 7 - 26 mg/dL 11/28/2024 5:58 PM T [facility] Creatinine 0.63 0.57 - 1.11 mg/dL 11/28/2024 5:58 PM T [facility] Alkaline Phosphatase 163(H) 40 - 150 U/L 11/28/2024 5:58 PM CDT [facility] ALT 17 6 - 57 U/L 11/28/2024 5:58 PM CDT [facility] AST 50(H) 10 - 48 U/L 11/28/2024 5:58 PM CDT [facility] Protein Total 7.8 6.4 - 8.3 gm/dL 11/28/2024 5:58 PM CDT [facility] Albumin 3.7 3.1 - 4.5 gm/dL 11/28/2024 5:58 PM CDT [facility] Bilirubin Total 3.7(H) 0.2 - 1.2 mg/dL 11/28/2024 5:58 PM CDT [facility] eGFR by CKD-EPI >90 >=90 mL/min/1.7 3 m2 11/28/2024 5:58 PM CDT [facility] Comment:Estimated Glomerular Filtration Rate (eGFR) calculated using the CKD-EPI Creatinine Equation (2020), per the [employer] and [place] [employer]ph[employer] recommendations. Blood BLOOD SPECIMEN / Unknown Venipuncture / Unknown 11/28/2024 4:30 PM CDT 11/28/2024 5:17 PM [facility]T [facility] - [facility]MISTRY ORDERABLES Dawn l Result Performing Organization Address City/[facility]/ZIP Co de Phone Number [facility] [address] [place] [phone] * (ABNORMAL) AMMONIA (11/28/2024 4:30 PM CDT) [facility] Signature Ammonia 155(H) 18 - 72 umol/L 11/28/2024 5:45 PM CDT [facility] Blood BLOOD SPECIMEN / Unknown Venipuncture / Unknown 11/28/2024 4:30 PM CDT 11/28/2024 5:17 PM CDT [facility] LAB - CHEMISTRY ORDERABLES Dawn l Result [facility] [address] [place] [address] from Last 3 Months
--- NOTE | 2024-11-30 13:16 | PC.NURSE ---
patient states that she normally takes an anxiety pill - hydroxizine- but the [facility] is out and she hasn't gotten it states last day she took it was 11/28, but that it was only ordered for 2 weeks but she is waiting for them to call it in
[2024-11-30 13:20] LABS: Hematocrit 43.9 % (37.0-47.0); Hemoglobin 14.6 g/dL (12.0-15.0); Immature Granulocyte Percent A 0.3 % (0-0.5); Immature Platelet Fraction Pct 1.9 % (0.9-11.2); Lymphocytes Absolute Auto 1.36 K/mm3 (0.9-3.2); Mean Corpuscular HGB Conc 33.3 g/dl (32-36); Mean Corpuscular Hemoglobin 29.1 pg (26-34); Mean Corpuscular Volume 87.5 fl (80-100); Nucleated Red Blood Cells Absolute Auto 0.000 K/mm3 (0.0-0.012); Nucleated Red Blood Cells Perc 0.0 % (0.0-0.2); Platelet Count Result 129 k/mm3 (150-375); Red Blood Count 5.02 M/mm3 (4.2-5.4); White Blood Count 5.7 K/mm3 (4.5-10.0)
[2024-11-30 13:38] LABS: Alanine Aminotransferase 25 U/L (6-35); Albumin Level 3.8 g/dL (3.5-5.1); Alkaline Phosphatase 164 U/L (38-126); Anion Gap 9 mmol/L (4-12); Aspartate Amino Transferase 46 U/L (14-36); Bilirubin,Total 2.4 mg/dL (0.2-1.3); Blood Urea Nitrogen 17 mg/dL (7-17); Calcium 9.3 mg/dL (8.4-10.2); Carbon Dioxide 19 mmol/L (22-30); Chloride 111 mmol/L (98-107); Estimated CRCL calculation 93 ml/min; Estimated Glomerular Filt Rate > 60; Glucose 108 mg/dL (65-110); Potassium 3.8 mmol/L (3.4-5.0); Sodium 139 mmol/L (137-145); Total Protein 7.8 g/dL (6.3-8.2)
[2024-11-30 13:46] LABS: Ammonia 51 umol/L (9-30)
--- NOTE | 2024-11-30 14:05 | ED_ITS ---
HPI - Recheck/Abnormal Lab/Rx General Chief Complaint: Recheck/Abnormal Lab/Rx Stated Complaint: ELEVATED LIVER ENZYMES Time Seen by Provider: 11/30/24 12:48 History of Present Illness HPI narrative: Patient presenting here sent from group home due to concern that she has not been taking her lactulose, they had a high level of 155, also reported that her oxygen was low at 87%. Patient is denying any complaints or symptoms. She does admit she has not always taken her lactulose as prescribed because she does not want to keep going to the bathroom. Related Data Home Medications ?Medication ?Instructions ?Recorded ?Confirmed ?Last Taken ?Type folic acid 1 mg tablet 1 mg PO DAILY 07/07/24 10/05/24 10/05/24 History hydroxyzine HCl 25 mg tablet 25 mg PO BID PRN anxiety 07/07/24 10/05/24 09/22/24 History lactulose 10 gram/15 mL oral 10 g PO TID 07/07/24 10/05/24 10/05/24 History solution magnesium oxide-magnesium amino 1 cap PO DAILY 07/07/24 10/05/24 10/05/24 History acid chelate 300 mg capsule melatonin 10 mg capsule 10 mg PO HS 07/07/24 10/05/24 10/04/24 History pantoprazole 40 mg tablet,delayed 40 mg PO QAM 07/07/24 10/05/24 10/05/24 History release rifaximin 550 mg tablet (Xifaxan) 550 mg PO BID 07/07/24 10/05/24 08/27/24 History thiamine HCl (vitamin B1) 100 mg 100 mg PO DAILY 07/07/24 10/05/24 10/04/24 History capsule trazodone 50 mg tablet 50 mg PO HS 07/07/24 10/05/24 10/04/24 History insulin lispro 100 unit/mL 1 sliding scale dose subcut 10/03/24 10/05/24 10/05/24 History subcutaneous half-unit pen USEASDIRECTD (Humalog Red KwikPen (U-100)) neomycin 500 mg tablet 500 mg PO BID 10/03/24 10/05/24 10/05/24 History paroxetine HCl 20 mg tablet 10 mg PO QAM 10/03/24 10/05/24 10/05/24 History Allergies Allergy/AdvReac Type Severity Reaction Status Date / Time No Known Allergies Allergy Verified 11/30/24 12:49 Review of Systems 2 Review of Systems: All systems reviewed & are unremarkable except as noted in HPI and below PMFSH Past Medical History Medical History Cirrhosis Elevated liver enzymes Hepatitis, alcoholic, acute Chronic pancreatitis Portal hypertension Coagulopathy Atrial fibrillation with rapid ventricular response Suicidal ideation Esophageal varices Diabetes mellitus Anxiety Panic attacks Chronic depression Chronic liver disease Surgical History Surgical History History of bilateral ligation of fallopian tubes History of gastrointestinal surgery For esophageal varices Family History Family History Mother Chronic obstructive pulmonary disease Other Unknown family medical history Social History Social History Social History: Homeless but per documentation going through a messy divorce Smoking status: Unknown if ever smoked Tobacco type: cigarettes Alcohol intake: former Drinks per week: 20 Alcohol use details: Liquor Substance use: unknown Substance use type: does not use Do You Feel Safe in your Home?: Yes Lack of Transportation: No Lack of Food: Never True Current Housing: I Have Housing Concerned About Future Housing: No Difficulty Paying Gas/Electric Bills: No Difficulty Paying for Meds: No Currently Unemployed: No Education: High School Diploma/GED Difficulty w/ Childcare or Family Care: No Living arrangements: group home Spiritual care concerns: No Exam 2 Narrative: EXAMINATION OF ORGAN SYSTEMS/BODY AREAS: Constitutional: Vital signs per nursing GENERAL:[No acute distress, non-toxic appearing.] HEAD: Normal with no signs of head trauma. EYES: EOMI, conjunctiva normal ENT: Hearing grossly intact LUNGS: Nonlabored breathing. HEART: [Regular rate and rhythm] ABD: [Soft], [nontender to palpation] EXT: No deformity SKIN: [No rashes or lesions.] NEURO: [Alert and oriented x 3. No gross focal sensory or strength deficits. Tremors. No significant asterixis or hand flapping] PSYCH: Normal affect Course Vital Signs Vital signs: Vital Signs Temperature 98.3 F 11/30/24 12:46 Pulse Rate 73 11/30/24 12:46 Respiratory Rate 18 11/30/24 12:46 Blood Pressure 148/78 H 11/30/24 12:46 Pulse Oximetry 97 11/30/24 12:46 Oxygen Delivery Nasal Cannula 11/30/24 12:46 Oxygen Flow Rate 4 11/30/24 12:46 Temperature 98.3 F 11/30/24 12:46 Pulse Rate 70 11/30/24 14:02 Respiratory Rate 24 H 11/30/24 14:02 Blood Pressure 133/82 11/30/24 14:01 Pulse Oximetry 94 11/30/24 14:02 Oxygen Delivery Nasal Cannula 11/30/24 12:46 Oxygen Flow Rate 2 11/30/24 13:14 MDM - Recheck/Abnormal Lab/Rx MDM Narrative Medical decision making narrative: 49F with h/o cirrhosis sent here from group home due to concern for elevated ammonia and low oxygen. Chest x-ray here is clear, her ammonia is actually at the lowest it has been in a while, she is alert and oriented and denies any complaints, she is speaking in full sentences and does not appear confused. She does admit she did not want to take the lactulose at the group home because she does not like how much she was going but she agrees to start taking it again. Her oxygen here has actually been 93-94% on room air, which I see in EMR is where she normally is at baseline. Patient is requesting to go home and does not want to be here. At this point I do not think she necessarily needs inpatient admission and I feel comfortable with her going back to the group home, with strict return precautions. Lab Data 11/30/24 13:07 11/30/24 13:07 Labs: Lab Results 11/30/24 11/30/24 Range/Units 13:07 13:33 WBC 5.7 (4.5-10.0) K/mm3 RBC 5.02 (4.2-5.4) M/mm3 Hgb 14.6 (12.0-15.0) g/dL Hct 43.9 (37.0-47.0) % MCV 87.5 (80-100) fl MCH 29.1 (26-34) pg MCHC 33.3 (32-36) g/dl RDW 18.3 H (11.5-14.5) % Plt Count 129 L (150-375) k/mm3 MPV 9.9 (7.4-10.4) fl Immature Gran % (Auto) 0.3 (0-0.5) % Neut % (Auto) 59.8 (45.5-73.1) % Lymph % (Auto) 23.8 (18.3-44.2) % [place] % (Auto) 14.0 H (2.6-8.5) % Eos % (Auto) 1.4 (0-4.4) % Baso % (Auto) 0.7 (0.2-1.2) % Lymph # (Auto) 1.36 (0.9-3.2) K/mm3 [place] # (Auto) 0.8 H (0.1-0.6) K/mm3 Eos # (Auto) 0.1 (0-0.3) K/mm3 Baso # (Auto) 0.0 (0.0-0.1) K/mm3 Abs Immat Gran (auto) 0.02 (0.00-0.031) K/mm3 Absolute Neuts (auto) 3.4 (1.3-6.7) K/mm3 Absolute Nucleated RBC 0.000 (0.0-0.012) K/mm3 Nucleated RBC % 0.0 (0.0-0.2) % % Immature Plt Fraction 1.9 (0.9-11.2) % Sodium 139 (137-145) mmol/L Potassium 3.8 (3.4-5.0) mmol/L Chloride 111 H (98-107) mmol/L Carbon Dioxide 19 L (22-30) mmol/L Anion Gap 9 (4-12) mmol/L BUN 17 (7-17) mg/dL Creatinine 0.52 L (0.7-1.0) mg/dL Estim Creat Clear Calc 93 ml/min Estimated GFR > 60 (59 - ) Glucose 108 (65-110) mg/dL Calcium 9.3 (8.4-10.2) mg/dL Total Bilirubin 2.4 H (0.2-1.3) mg/dL AST 46 H (14-36) U/L ALT 25 (6-35) U/L Alkaline Phosphatase 164 H (38-126) U/L Ammonia 51 H (9-30) umol/L Total Protein 7.8 (6.3-8.2) g/dL Albumin 3.8 (3.5-5.1) g/dL Discharge Plan Discharge Clinical Impression: Cirrhosis Patient Disposition: [facility] Senior Care/Asst Living Condition: Stable Instructions: Chronic Liver Disease (ED) Additional Instructions: Please take all of the medications you are prescribed, including the lactulose. You can always return to the ER for any further issues. Patient Language: Turkish Prescriptions: No Action folic acid 1 mg tablet 1 mg PO DAILY hydroxyzine HCl 25 mg tablet 25 mg PO BID PRN (Reason: anxiety) lactulose 10 gram/15 mL solution 10 g PO TID magnesium oxide-Mg AA chelate 300 mg capsule 1 cap PO DAILY Rx Instructions: 300mg melatonin 10 mg capsule 10 mg PO HS pantoprazole 40 mg tablet,delayed release (DR/EC) 40 mg PO QAM trazodone 50 mg tablet 50 mg PO HS thiamine HCl (vitamin B1) 100 mg capsule 100 mg PO DAILY Xifaxan 550 mg tablet 550 mg PO BID potassium chloride [K-Tab] 20 mEq Tablet Extended Release 20 meq PO DAILY@0800 Qty: 30 0RF insulin lispro [Humalog Red KwikPen U-100] 100 unit/mL insulin pen, half- unit 1 sliding scale dose subcut USEASDIRECTD neomycin 500 mg tablet 500 mg PO BID paroxetine HCl 20 mg tablet 10 mg PO QAM Follow-up/Referrals: PHYSICIAN NOT ON STAFF,NONSTAFF [Primary Care Provider] -
== END 2024-11-30 16:40 ==
PROVIDERS: Emergency Provider Emergency Medicine
DX: K74.60 Unspecified cirrhosis of liver (principal); T47.3X6A Underdosing of saline and osmotic laxatives, initial encounter; Z91.148 Patient's other noncompliance with medication regimen for other reason; I48.91 Unspecified atrial fibrillation; E11.9 Type 2 diabetes mellitus without complications; F32.A Depression, unspecified; F41.9 Anxiety disorder, unspecified; Z79.84 Long term (current) use of oral hypoglycemic drugs
CPT/HCPCS: 36415; 71045; 80053; 82140; 85025; 85055; 99283